=== PATIENT | male | born 1940 | race Caucasian/White ===

== ENCOUNTER → 2016-03-22 | Outpatient (CLI) | payer OTHER ==
[~2016-03-22] MED LIST: ACET-2267 PO; ACET-2422 PO; ALEN70TA47 PO; ASCO-262 PO; ASPI-983 PO; ATOR80TA76 PO; BUDE10.2 IH; CALC-676 PO; CALC-901 PO; CARV6.252 PO; DIGO250T15 PO; DOCU-143 PO; DOXY100C42 PO; FA/M1TAB29 PO; FINA5TAB6 PO; FLUT16SP22 NS; FOLI1TAB24 PO; FURO40TA4 PO; GLUC-173 PO; GLUC1CAP37 PO; GUAI100L13 PO; GUAI118L69 PO; HYDR-3812 PO; HYDR200T46 PO; LEFL20TA18 PO; LORA10TA7 PO; METO-272 PO; MULT-301 PO; OMG1KC PO; PRD20T PO; PRED10TA22 PO; RT-ALBUINH IH; SPIR25TA PO; SULF500T7 PO; TACR1CAP8 PO; TAMS0.4C98 PO; TIOT4MIS2 IH; UBID1CAP53 PO; VITA1CAP PO; VITAMIN D3 PO; WARF-48 PO; WARF2.5T PO; WARF5TAB PO
--- OUTSIDE RECORDS SUMMARY | 2016-03-22 16:25 | XMS REPORT | Continuity of Care Document ---
Author Author [facility] Organization [facility] Address Unknown Phone Unavailable Care Team Providers Care Data Modeling Architect Name Role Phone DREA LAW DO PCP Insurance Providers Payer Name Policy Number Subscriber Name Relationship Veterans Choice [id number] Alessio Cordero Jr 18 Self / Same As Patient Advance Directives Directive Response Recorded Date/Time Advance Directives Yes 03/01/16 7:10am Health Care Power of Rn Plasma Center Yes 03/01/16 7:10am Organ Donor No 03/01/16 7:10am Resuscitation Status Full Code 03/01/16 7:10am Problems Active Problems Medical Problem Onset Date Status CKD (chronic kidney disease), stage III Unknown Acute Medications Current Home Medications Medication Dose Units Route Directions Days/Qty Instructions Start Date Acetaminophen 500 Mg 1,000 Mg Oral Daily TAKES 2 (500MG) TABLETS 03/01 Acetaminophen 500 Mg 1,000 Mg Oral Twice A Day as needed for Pain TAKES 2 (500MG) TABLETS 03/01/16 Albuterol Sulfate 6.7 Gm 2 Puff Inhalation Twice A Day 03/01/16 Albuterol Sulfate 6.7 Gm 2 Puff Inhalation Daily as needed for Shortness Of Breath 03/01/16 Alendronate Sodium 70 Mg 70 Mg Oral Every Monday03/01/16 Ascorbate Calcium 500 Mg 500 Mg Oral Daily 03/01/16 Aspirin 81 Mg 81 Mg Oral Bedtime 03/01/16 Atorvastatin Calcium 80 Mg 80 Mg Oral Bedtime 03/01/16 Budesonide/Formoterol Fumarate 10.2 Gm 2 Puff Inhalation Twice A Day 03/01/16 Calcium Carbonate/Vitamin D3 1 Each 1 Tab Oral Twice A Day 03/01/16 Carvedilol 6.25 Mg 6.25 Mg Oral Daily 03/01/16 Glucosa Whiting 2KCL/Chondroitin [place] 1 Each 2 Cap Oral Daily 03/01/16 Ubidecarenone/Vit E Acetate 1 Each 100 Mg Oral Daily 03/01/16 Docusate Sodium 100 Mg 100 Mg Oral Daily 03/01/16 Finasteride 5 Mg 5 Mg Oral Bedtime 03/01/16 [place] 3 Polyunsat Fatty Acids 1,000 Mg 3,000 Mg Oral Daily TAKES 3 (1, 000MG) CAPSULES 03/01/16 Fluticasone Propionate 16 Gm 2 Sprays Nasal Daily 03/01/16 Folic Acid 1 Mg 1 Mg Oral Daily 03/01/16 Furosemide 40 Mg 80 Mg Oral Daily TAKES 2 (40MG) TABLET 03/01/16 Guaifenesin 100 Mg/5 Ml 5 Ml Oral Daily as needed for Congestion Hydroxychloroquine Sulfate 200 Mg 200 Mg Oral Twice A Day 03/01/16 Leflunomide 20 Mg 20 Mg Oral Twice A Day 03/01/16 Loratadine 10 Mg 10 Mg Oral Daily 03/01/16 Multivitamin 1 Each 1 Tab Oral Daily 03/01/16 Sulfasalazine 500 Mg 1,000 Mg Oral Twice A Day TAKES 2 (500MG) TABLETS 03/01/16 Tacrolimus 1 Mg 1 Mg Oral Bedtime 03/01/16 Tamsulosin Hcl 0.4 Mg 0.4 Mg Oral Bedtime 03/01/16 Tiotropium [place] 4 Gm 2 Puff Inhalation Daily 03/01/16 Vitamin B Complex 1 Each 1 Cap Oral Daily 03/01/16 Warfarin Sodium 5 Mg 5 Mg Oral Bedtime 03/01/16 Spironolactone 25 Mg 25 Mg Oral Twice A Day 03/01/16 Social History Social History Problem Response Recorded Date/Time Recent Foreign Travel No 03/01/2016 7:24am Recent Infectious Disease Exposure No 03/01/2016 7:24am Smoking Status Former Smoker 03/01/2016 7:18am Query Response Start Date Stop Date Smoking Status Former Smoker Hospital Discharge Instructions Patient Instructions Physician Instructions Patient Instructions: F/u with Dr Bach on 03/04/16 Follow Up/Plan F/u with Dr Bach on 03/04/16 CARDIAC CATH DISCHARGE INSTRUCTIONS *Hold Metformin for 48 hours post heart cath. ACTIVITY * Go Home directly and rest. * Limit activity of the leg (or wrist if it was used) for 7 days including aerobics, swimming, jogging, bicycling, etc. * Restrict stair-climbing for 7 days if possible, if not, climb up with your non-cath leg, then bring together on the same step. * Avoid lifting, pushing, pulling or excessive movement of the affected extremity for 7 days. * Customary sexual activity may be resumed after 2 days-use caution not to use a position that strains or causes pain to the affected extremity. * No driving for 24 hours. * NO SMOKING. * Avoid straining for bowel movements for 7 days. * Gentle walking on level ground is allowed. * Returning to work will depend on the type of procedure and the results. Your doctor will discuss this with you. CALL YOUR DOCTOR FOR ANY OF THE FOLLOWING: *If bleeding from the puncture site occurs- Apply gentle pressure to site with clean cloth and call your doctor or EMS. * If a knot or lump forms under the skin, increases in size, or causes pain. * If bruising appears to be worsening or moving further down your leg instead of disappearing. * Temperature above 101 F. CARE OF YOUR GROIN INCISION; * Bruising or purple discoloration of the skin near the puncture site is common. * You may shower only, no bathtub bathing for 5 days. Be careful to avoid slipping as your leg may feel stiff. * If a closure device was used on your femoral artery, please see the attached guide regarding care of the device and your leg. * REMOVE the dressing from your groin the next day after your procedure in the shower. CARE OF YOUR WRIST INCISION; * Bruising or purple discoloration of the skin near the puncture site is common. * You may shower. * DO NOT submerge wrist. * Remove dressing in 24 hours. Care Plan Patient Instructions:: F/u with Dr Bach on 03/04/16 Plan of Care Discharge Date 03/01/16 6:00pm Instructions/Education Provided CARDIAC CATH DISCHARGE INSTRUC Prescriptions See Medication Section Follow-up Orders BMP-Basic Metabolic Panel Functional Status Query Response Date Recorded Patient Orientation Person Place Time March 01, 2016 6:14pm Allergies, Adverse Reactions, Alerts Allergen Type Severity Reaction Status Last Updated Penicillins ([id number]) Allergy Unknown Active 03/01/16 methotrexate ([id number]) Allergy Unknown Active 03/01/16 Cephalexin Allergy Unknown Active 03/01/16 ciprofloxacin ([id number]) Allergy Unknown Active 03/01/16 Immunizations No immunization records. Vital Signs Acute Vital Signs Vital Response Date/Time Temperature (Fahrenheit) 96.4 degrees F (97.6 - 99.5) 03/01/2016 12:05pm Temperature (Calculated Celsius) 35.34168 degrees C (36.4 - 37.5) 03/01/2016 12:05pm Temperature Source Tympanic 03/01/2016 12:05pm Pulse Rate (adult) 90 bpm (60 - 90) 03/01/2016 4:00pm Respiratory Rate 13 bpm (12 - 24) 03/01/2016 4:00pm O2 Sat by Pulse Oximetry 93 % (88 - 100) 03/01/2016 4:00pm Blood Pressure 94/65 mm Hg 03/01/2016 4:00pm Blood Pressure Mean 75 mm Hg 03/01/2016 4:00pm Pain Numeric Pain Scale 0-No Pain 03/01/2016 5:00pm Height (Feet) 5 feet 03/01/2016 7:24am Height (Inches) 3.00 inches 03/01/2016 7:24am Height (Calculated Centimeters) 160.881404 cm 03/01/2016 7:24am Weight (Pounds) 199 pounds 03/01/2016 7:24am Weight (Ounces) 0.0 oz 03/01/2016 7:24am Weight (Calculated Grams) 69082.88 gm 03/01/2016 7:24am Weight (Calculated Kilograms) 90.535668 kilograms 03/01/2016 7:24am Calculated BMI 35.3 03/01/2016 7:24am Capillary Refill Capillary Refill Less Than 3 Seconds 03/01/2016 5:00pm Capillary Refill Capillary Refill Less Than 3 Seconds 03/01/2016 5:00pm Results Pending Laboratory Results Test Name Collection Date/Time Procedures Procedure Status Date Provider(s) 48 hour Holter monitoring Completed 02/18/16 MARCK BACH MD FACP FAC CCDS 48 hour Holter monitoring Completed 02/18/16 MARCK BACH MD, FACP, FACC CCDS Color Doppler echocardiography Active 02/18/16 MARCK BACH MD, FACP, FACC CCDS Tracing only of electrocardiogram Completed 03/01/16 MARCK BACH MD, FACP, FACC CCDS Encounters Encounter Location Arrival/Admit Date Discharge/Depart Date Attending Provider Departed [facility] 03/01/16 6:49am 6:00pm MARCK BACH FACP, MD [facility] Registered Clinic [facility] 02/24/16 2:20pm [facility] 02/18/16 12:42pm MARCK BACH FACP, MD [facility] Registered Clinic [facility] 02/16/16 7:15am [facility] Recent Diagnosis CKD (chronic kidney disease), stage III
--- NOTE | 2016-03-22 17:04 | Diagnostic Imaging Report ---
INDICATION: Cardiac disease, shortness of breath. COMPARISON: No priors. FINDINGS: There are right posterolateral fracture deformities of uncertain acuity; correlate with any recent trauma. There is flattening of the diaphragms and features of COPD. There is borderline cardiomegaly, but no convincing evidence for overdistention of the vascularity. No effusion or pneumothorax. IMPRESSION: Acuity-indeterminate right rib fractures. Upper limits heart size with air trapping and COPD. No acute pleural disease or overt uncompensated failure pattern. Dictated by: Dictated on workstation # [id number]
== END ==
LOC: RAD 16:21
PROVIDERS: ATTEND Internal Medicine Critical Care Medicine
DX: R06.02 Shortness of breath (principal); E66.09 Other obesity due to excess calories; I50.23 Acute on chronic systolic (congestive) heart failure
CPT/HCPCS: 71020

== ENCOUNTER 2016-03-31 12:45 | Inpatient (IN) | payer MEDICARE, OTHER ==
[~2016-03-31] VITALS: Ht 160 cm; Wt 79.9 kg
[~2016-03-31 12:45] MED LIST changes: -ACET-2422 PO; -CALC-901 PO; -DIGO250T15 PO; -DOXY100C42 PO; -FA/M1TAB29 PO; -GLUC-173 PO; -GUAI118L69 PO; -HYDR-3812 PO; -METO-272 PO; -PRD20T PO; -PRED10TA22 PO; -VITAMIN D3 PO; -WARF2.5T PO; -WARF5TAB PO
[2016-03-31] MEDS ORDERED: GENTAMICIN 100 MG/50 ML IV SCH (12:52)
[2016-03-31] MEDS ORDERED: ALPRAZolam 0.25 MG (XANAX) TAB PO PRN (13:00)
[2016-03-31] MEDS ORDERED: ACETAMINOPHEN 500 MG TAB (TYLENOL) PO PRN (13:00)
[2016-03-31 17:20] VITALS: BP 110/72
--- OUTSIDE RECORDS SUMMARY | 2016-03-31 17:48 | XMS REPORT | Continuity of Care Document ---
Author Author [facility] Organization [facility] Address Unknown Phone Unavailable Care Team Providers Care Integrity Analyst Name Role Phone DREA LAW DO PCP Insurance Providers Payer Name Policy Number Subscriber Name Relationship Veterans Choice [id number] Alessio Cordero Jr 18 Self / Same As Patient Advance Directives Directive Response Recorded Date/Time Advance Directives Yes 03/01/16 7:10am Health Care Power of Target Aircraft Technician Yes 03/01/16 7:10am Organ Donor No 03/01/16 [...] 5 Mg 5 Mg Oral Bedtime 03/01/16 [place] 3 Polyunsat Fatty Acids 1,000 Mg 3,000 [...] Mg 0.4 Mg Oral Bedtime 03/01/16 Tiotropium [place] 4 Gm 2 Puff Inhalation Daily 03/01/16 [...] Type Severity Reaction Status Last Updated Penicillins ([id number]) Allergy Unknown Active 03/01/16 methotrexate ([id number]) Allergy Unknown Active 03/01/16 Cephalexin Allergy Unknown Active 03/01/16 ciprofloxacin ([id number]) Allergy Unknown Active 03/01/16 Immunizations No immunization records. Vital Signs Acute Vital Signs Vital Response Date/Time Temperature (Fahrenheit) 96.4 degrees F (97.6 - 99.5) 03/01/2016 12:05pm Temperature (Calculated Celsius) 35.95158 degrees C (36.4 - 37.5) 03/01/2016 12:05pm [...] 3.00 inches 03/01/2016 7:24am Height (Calculated Centimeters) 160.459998 cm 03/01/2016 7:24am Weight (Pounds) 199 pounds 03/01/2016 7:24am Weight (Ounces) 0.0 oz 03/01/2016 7:24am Weight (Calculated Grams) 94459.88 gm 03/01/2016 7:24am Weight (Calculated Kilograms) 90.806257 kilograms 03/01/2016 7:24am Calculated BMI 35.3 03/01/2016 [...] Attending Provider Departed Surgical Day Care [facility] 03/01/16 6:49am 6:00pm MARCK BACH FACP, MD [facility] Registered Clinic [facility] 02/24/16 2:20pm [facility] 02/18/16 12:42pm MARCK BACH FACP, MD [facility] Registered Clinic [facility] 02/16/16 7:15am [facility] Recent Diagnosis CKD (chronic kidney disease), stage III
--- NOTE | 2016-03-31 18:01 | Diagnostic Imaging Report ---
INDICATION: Shortness of breath and cough. PA and lateral chest. FINDINGS: Heart size and pulmonary vascularity are normal. Lungs are clear. There are no effusions or pneumothoraces. IMPRESSION: No acute abnormalities in the chest. Dictated by: Dictated on workstation # [id number]
[2016-03-31] MEDS: AZITHROMYCIN IV ADD-VANTAGE 500 MG in SODIUM CHLORIDE (ADD-VANTAGE) 250 ML IV SCH (18:18)
[2016-03-31 18:21] LABS: ABG BASE EXCESS -0.3 MMOL/L (-2.5-2.5); ABG HCO3 24 MMOL/L (23-27); ABG OXYGEN SATURATION 97 % (94-100); ABG PCO2 40 MMHG (35-45); ABG PO2 90 MMHG (79-93); ABG TCO2 25.2 MMOL/L (21.0-31.0)
[2016-03-31 18:23] LABS: ALLENS TEST YES-POS; PATIENT TEMP 100.3
[2016-03-31] MEDS: methylPREDNISolone 40 MG/ML (Solu-MEDROL) VIAL IV SCH (18:26)
[2016-03-31 18:43] LABS: BASOPHILS % (AUTO) 1 % (0-10); EOSINOPHILS # (AUTO) 0.2 10^3/uL (0.0-0.3); EOSINOPHILS % (AUTO) 2 % (0-10); LYMPHOCYTES # (AUTO) 1.2 X 10^3 (1.0-4.0); LYMPHOCYTES % (AUTO) 14 % (12-44); MEAN CORPUSCULAR HEMOGLOBIN 33 PG (25-34); MEAN CORPUSCULAR HGB CONC 33 G/DL (32-36); MEAN CORPUSCULAR VOLUME 100 FL (80-99); MEAN PLATELET VOLUME 11.5 FL (7.4-10.4); MONOCYTES # (AUTO) 1.4 X 10^3 (0.0-1.0); MONOCYTES % (AUTO) 16 % (0-12); NEUTROPHILS # (AUTO) 5.9 X 10^3 (1.8-7.8); NEUTROPHILS % (AUTO) 68 % (42-75); PLATELET COUNT 133 10^3/uL (130-400); RED CELL DISTRIBUTION WIDTH 13.8 % (10.0-14.5); WHITE BLOOD COUNT 8.7 10^3/uL (4.3-11.0)
[2016-03-31] MEDS: guaiFENesin/CODEINE (ROBITUSSIN AC) 10ML UDC PO PRN (19:00)
[2016-03-31 19:03] LABS: ANION GAP 13 MMOL/L (5-14); BLOOD UREA NITROGEN 19 MG/DL (7-18); BUN/CREATININE RATIO 17; CALCIUM 9.1 MG/DL (8.5-10.1); CARBON DIOXIDE 22 MMOL/L (21-32); CHLORIDE 97 MMOL/L (98-107); CREATININE SERUM 1.13 MG/DL (0.60-1.30); GFR ESTIMATED > 60; GLUCOSE 98 MG/DL (70-105); POTASSIUM 3.9 MMOL/L (3.6-5.0); SODIUM 132 MMOL/L (135-145)
[2016-03-31 19:20] VITALS: BP 119/78
[2016-03-31] MEDS: RT-ALBUTEROL/IPRATROPIUM 3 ML (DUONEB) VIAL INH SCH ×2 (19:20→21:04)
[2016-03-31] MEDS ORDERED: CEFEPIME INJECTION 2,000 MG in NORMAL SALINE (BAXTER MINI) 50 ML IV SCH (21:00)
[2016-03-31] MEDS: RT-BUDESONIDE NEBS 0.5 MG/2ML (PULMICORT) AMP INH SCH (21:04)
[2016-03-31] MEDS: NS IV SCH ×2 (21:10→21:51)
[2016-03-31] MEDS: GENTAMICIN IV SCH ×2 (21:10→21:51)
[2016-03-31] MEDS: POLYETHYLENE GLYCOL 17 GM (MIRALAX) PACK PO SCH ×2 (21:11→21:12)
[2016-03-31] MEDS ORDERED: RT-ALBUTEROL/IPRATROPIUM 3 ML (DUONEB) VIAL INH PRN (23:15)
[2016-04-01 00:03] VITALS: BP 120/86
[2016-04-01] MEDS: methylPREDNISolone 40 MG/ML (Solu-MEDROL) VIAL IV SCH ×5 (00:03→23:58)
[2016-04-01] MEDS: RT-ALBUTEROL/IPRATROPIUM 3 ML (DUONEB) VIAL INH SCH ×6 (01:49→22:50)
[2016-04-01 04:52] VITALS: BP 117/71
[2016-04-01] MEDS: guaiFENesin/CODEINE (ROBITUSSIN AC) 10ML UDC PO PRN ×3 (05:52→20:33)
[2016-04-01] MEDS ORDERED: TROUGH ORDER-PHARMACY XX NR (07:00)
[2016-04-01] MEDS: RT-BUDESONIDE NEBS 0.5 MG/2ML (PULMICORT) AMP INH SCH ×2 (07:03→20:06)
[2016-04-01 08:00] VITALS: BP 119/74
--- NOTE | 2016-04-01 08:32 | Pulmonary Consultation ---
History of Present Illness History of Present Illness Date of Consultation 04/01/16 08:31 Date of Admission History of Present Illness 75yo with hx of severe COPD transferred from [facility] to progressive SOB and pneumonia that is slow to respond. Pt is using Robitussin with codeine for cough however he still c/o strong cough. He is on IV steroids and nebulizer. I am consulted for pulmonary management. Allergies and Home Medications Allergies Coded Allergies: Penicillins (Verified Allergy, Unknown, 03/01/16) cephalexin (Verified Allergy, Unknown, 03/01/16) ciprofloxacin (Verified Allergy, Unknown, 03/01/16) methotrexate (Verified Allergy, Unknown, 03/01/16) Home Medications Acetaminophen 650 Mg Tablet.er 1,300 MG PO BID PRN PRN PAIN (Reported) TAKES 2 (650 MG) TABLETS Albuterol Sulfate 6.7 Gm Hfa.aer.ad 2 PUFF IH BID (Reported) Alendronate Sodium 70 Mg Tablet 70 MG PO [place] (Reported) LAST FILLED 11/05/15 #12 Ascorbate Calcium 500 Mg Tablet 500 MG PO DAILY (Reported) Aspirin 81 Mg Tablet.dr 81 MG PO HS (Reported) Atorvastatin Calcium 80 Mg Tablet 80 MG PO HS (Reported) LAST FILLED 11/05/15 #90 Budesonide/Formoterol Fumarate 10.2 Gm Hfa.aer.ad 2 PUFF IH BID (Reported) Calcium Carbonate/Vitamin D3 1 Each Tablet 1 TAB PO BID (Reported) Carvedilol 6.25 Mg Tablet 3.125 MG PO BID (Reported) TAKES 1/2 OF A (6.25 MG) TABLET Finasteride 5 Mg Tablet 5 MG PO HS (Reported) Folic Acid 1 Mg Tablet 1 MG PO DAILY (Reported) Furosemide 40 Mg Tablet 80 MG PO DAILY (Reported) TAKES 2 (40MG) TABLET Glucosamine/MSM/Chondroitin A 1 Each Tablet 2 TAB PO DAILY (Reported) Guaifenesin/Dextromethorphan 118 Ml Liquid 5 ML PO DAILY PRN PRN CONGESTION ( Reported) Leflunomide 20 Mg Tablet 20 MG PO BID (Reported) LAST FILLED 01/14/16 #110 Loratadine 10 Mg Tablet 10 MG PO DAILY (Reported) Multivit-Min/FA/Lycopene/Lut 1 Each Tablet 1 TAB PO DAILY (Reported) [place] 3 Polyunsat Fatty Acids 1,000 Mg Cap 1,000 MG PO DAILY (Reported) Prednisone 20 Mg Tab 20 MG PO DAILY (Reported) FILLED 03/30/16 #5 FOR A 5 DAY THERAPY Prednisone 10 Mg Tab.ds.pk #42 10 MG PO DAILY Take 6 tabs(60mg)daily,decrease by 1 tab(10mg)every other day. Prescribed by: BUCK ARMENDARIZ on 04/05/16 0926 Spironolactone 25 Mg Tablet 25 MG PO BID (Reported) Sulfasalazine 500 Mg Tablet 1,000 MG PO BID (Reported) LAST FILLED 11/05/15 #360 / TAKES 2 (500MG) TABLETS Tacrolimus 1 Mg Capsule 1 MG PO HS (Reported) Tamsulosin HCl 0.4 Mg Cap 0.4 MG PO HS (Reported) Tiotropium [place] 4 Gm Mist.inhal 2 PUFF IH DAILY (Reported) Ubidecarenone/Vit E Acetate 1 Each Capsule 100 MG PO DAILY (Reported) Vitamin B Complex 1 Each Capsule 1 CAP PO DAILY (Reported) Past Ebptpev-Vitrms-Txgkta Hx Patient Social History Alcohol Use: Denies Use Recreational Drug Use: No Smoking Status: Former Smoker Type Used: Cigarettes Recent Foreign Travel: No Contact w/Someone Who Travel: No Recent Infectious Disease Expo: No Recent Hopitalizations: Yes Physical Abuse Screen: No Sexual Abuse: No Immunizations Up To Date Date of Pneumonia Vaccine: Mar 01, 2015 Date of Influenza Vaccine: Dec 01, 2015 Seasonal Allergies Seasonal Allergies: No Surgeries HX Surgeries: Yes Respiratory Hx Respiratory Disorders: Yes Respiratory Disorders: Asthma, COPD Cardiovascular Hx Cardiac Disorders: Yes Genitourinary Hx Genitourinary Disorders: No Gastrointestinal Hx Gastrointestinal Disorders: No Gastrointestinal Disorders: Gastroesophageal Reflux, Chronic Constipation HEENT HEENT Disorders: Cataract Loss of Vision: Bilateral Hearing Impairment: Bilateral Hearing Aide Cancer Cancer: Kidney Psychosocial Behavioral Health Disorders: Depression Blood Transfusions Adverse Reaction to a Blood Tr: No Family Medical History Family Medial History: Patient reports no known family medical history. Review of Systems Constitutional: : Fever: Weakness Eyes: No: Conjunctivae inflammation, Eyelid inflammation, Other, Pain, Redness , Vision change ENT: : Ear discharge: Ear pain: Mouth pain: Mouth swelling: Nose congestion: Nose discharge: Nose pain: Other: Throat pain: Throat swelling Respiratory: : Cough: Dry: SOB with excertion: Shortness of breath Cardiovascular: : Paroxysmal Noc. DyspneaNo: Chest Pain, Edema, Lt Headedness, Orthopnea, Other, Palpitations Gastrointestinal: No: Abdominal Pain, Constipation, Diarrhea, Hematochezia, Melena, Nausea, Other, Vomiting Neurological: : Weakness Exam Exam Vital Signs Date Time Temp Pulse Resp B/P Pulse Ox O2 Delivery O2 Flow Rate FiO2 04/01/16 08:00 96.0 86 18 119/74 97 Nasal Cannula 3.00 04/01/16 07:05 96 Nasal Cannula 3.00 04/01/16 04:52 96.9 72 20 117/71 95 Nasal Cannula 3.00 04/01/16 03:52 Nasal Cannula 3.00 04/01/16 01:52 96 Nasal Cannula 3.00 04/01/16 01:00 99 04/01/16 00:03 96.8 81 24 120/86 98 Nasal Cannula 3.00 03/31/16 21:06 90 03/31/16 21:06 90 Nasal Cannula 3.00 03/31/16 21:00 Nasal Cannula 3.00 03/31/16 19:20 97.8 102 24 119/78 95 Nasal Cannula 3.00 03/31/16 19:00 129 03/31/16 18:46 99.7 03/31/16 18:41 Nasal Cannula 3.00 03/31/16 17:20 100.3 114 28 110/72 97 Nasal Cannula 3.00 I & O 04/01/16 07:00 Intake Total 1060 ml Output Total 900 ml Balance 160 ml General Appearance: No Apparent Distress WD/WN Neck: Full Range of Motion Normal Inspection Respiratory: No Accessory Muscle Use No Respiratory Distress Decreased Breath Sounds Cardiovascular: Regular Rate, Rhythm Gastrointestinal: normal bowel sounds non tender Neurologic/Psychiatric: Alert Skin: Normal Color Warm/Dry Results Lab Laboratory Tests 03/31/16 18:11 Assessment/Plan Assessment/Plan Pneumonia - slow to respond -elam cultures pending -Continue current Abx -SVNS Clinical Quality Measures DVT/VTE Risk/Contraindication: Risk Factor Score Per Nursin RFS Level Per Nursing on Admit: 4+=Very High NORIS JANE DO Apr 01, 2016 08:32
[2016-04-01] MEDS: HYDROcodone/APAP 5 MG/325 MG (LORTAB) TAB PO PRN (08:34)
[2016-04-01] MEDS: POLYETHYLENE GLYCOL 17 GM (MIRALAX) PACK PO SCH ×2 (08:34→20:34)
[2016-04-01] MEDS ORDERED: CATHETER FLUSH 10 ML SYR IV PRN (09:45)
[2016-04-01] MEDS ORDERED: CALC-901 PO (10:39)
[2016-04-01] MEDS ORDERED: PRD20T PO (10:39)
[2016-04-01] MEDS ORDERED: FA/M1TAB29 PO (10:39)
[2016-04-01] MEDS ORDERED: GLUC-173 PO (10:39)
[2016-04-01] MEDS ORDERED: ACET-2422 PO (10:39)
[2016-04-01] MEDS ORDERED: DOXY100C42 PO (10:39)
[2016-04-01] MEDS ORDERED: WARF-48 PO (10:39)
[2016-04-01] MEDS ORDERED: GUAI118L69 PO (10:39)
[2016-04-01] MEDS: CATHETER FLUSH 10 ML SYR IV SCH ×2 (11:56→20:43)
[2016-04-01] MEDS: BENZONATATE 100 MG (TESSALON) CAPSULE PO SCH ×2 (11:57→20:33)
--- NOTE | 2016-04-01 11:57 | History & Physical-Hospitalist ---
HPI History of Present Illness: HPI/Chief Complaint CC: Severe dyspnea w/AECOPD HPI: This is a 75-year-old white male with a past medical history of severe COPD just established with Dr. Barba who presented to [facility] ER and was placed in observation due to shortness of breath. I have consulted both cardiology and Dr. Hoskins who is seen in his clinic this past week. Patient reports the cough is continuous even Robitussin with codeine is helping slightly but denies any significant pain issues. He does report that he feels better since arrival since receiving IV steroids and nebulizer treatments. He does not wear oxygen at night or at home at all. At this current time Dr. Hoskins is seen him and assessed him to have exacerbation of COPD and will monitor closely. Source: patient Exam Limitations: clinical condition (coughing continously) Date Seen 04/01/16 Attending Physician Alva Holbrook DO PCP Wayne Barba DO Referring Physician Date of Admission Mar 31, 2016 at 17:35 Home Medications & Allergies Home Medications Reviewed patient Home Medication Reconciliation Form Allergies Coded Allergies: Penicillins (Verified Allergy, Unknown, 03/01/16) cephalexin (Verified Allergy, Unknown, 03/01/16) ciprofloxacin (Verified Allergy, Unknown, 03/01/16) methotrexate (Verified Allergy, Unknown, 03/01/16) Past Sjcuvpv-Nulpnu-Ioyfku Hx Patient Social History Marrital Status: single 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) Alcohol Use: Denies Use Recreational Drug Use: No Smoking Status: Former Smoker Type Used: Cigarettes Physical Abuse Screen: No Sexual Abuse: No Recent Foreign Travel: No Contact w/other who traveled: No Recent Hopitalizations: Yes Recent Infectious Disease Expo: No Immunizations Up To Date Date of Pneumonia Vaccine: Mar 01, 2015 Date of Influenza Vaccine: Dec 01, 2015 Seasonal Allergies Seasonal Allergies: No Surgeries HX Surgeries: Yes Respiratory Hx Respiratory Disorders: Yes Respiratory Disorders: COPD, Pneumonia Cardiovascular Hx Cardiovascular Disorders: Yes Cardiac Disorders: High Cholesterol, Hypertension, Valvular Heart Disease Neurological Hx Neurological Disorders: No Genitourinary Hx Genitourinary Disorders: No Gastrointestinal Hx Gastrointestinal Disorders: No Gastrointestinal Disorders: Gastroesophageal Reflux, Chronic Constipation Musculoskeletal Hx Musculoskeletal Disorders: Yes Musculoskeletal Disorders: Arthritis Endocrine Hx Endocrine Disorders: No HEENT HEENT Disorders: Cataract Loss of Vision: Bilateral Hearing Impairment: Bilateral Hearing Aide Cancer Hx Cancer: No Cancer: Kidney Psychosocial Hx Psychiatric Problems: No Behavioral Health Disorders: Depression Blood Transfusions Adverse Reaction to a Blood Tr: No Family Medical History Family Hx: Patient reports no known family medical history. Review of Systems Constitutional: see HPI dizziness malaise weakness EENTM: no symptoms reported Respiratory: cough dyspnea on exertion short of breath wheezing Cardiovascular: no symptoms reported Gastrointestinal: no symptoms reported Genitourinary: no symptoms reported Musculoskeletal: no symptoms reported Skin: no symptoms reported Psychiatric/Neurological: No Symptoms Reported All Other Systems Reviewed Negative Unless Noted: Yes Physical Exam Physical Exam Vital Signs Vital Sign - Last 12Hours 03/31/16 17:20 Temp 100.3 Pulse 114 Resp 28 B/P 110/72 Pulse Ox 97 O2 Delivery Nasal Cannula O2 Flow Rate 3.00 Capillary Refill : Less Than 3 Seconds General Appearance: WD/WN Chronically ill Mild Distress (during coughing spells) Obese Eyes: Bilateral Eye Normal Inspection, Bilateral Eye PERRL HEENT: PERRL/EOMI Normal ENT Inspection Pharynx Normal Neck: Full Range of Motion Normal Inspection Non Tender Supple Carotid Bruit Respiratory: Chest Non Tender No Respiratory Distress Crackles Decreased Breath Sounds Rales Wheezing Cardiovascular: Regular Rate, Rhythm No Edema No Gallop No JVD No Murmur Normal Peripheral Pulses Gastrointestinal: Normal Bowel Sounds No Organomegaly No Pulsatile Mass Non Tender Soft Back: Normal Inspection No CVA Tenderness No Vertebral Tenderness Extremity: Normal Capillary Refill Normal Inspection Normal Range of Motion Non Tender No Calf Tenderness No Pedal Edema Neurologic/Psychiatric: Alert Oriented x3 No Motor/Sensory Deficits Normal Mood/Affect Skin: Normal Color Warm/Dry Lymphatic: No Adenopathy Results Results/Procedures Lab Laboratory Tests 03/31/16 18:11 Assessment/Plan Admission Diagnosis Assessment: Acute exacerbation of COPD Severe aortic stenosis Immunosuppressive use Hyperlipidemia hyponatremia AF Assessment and Plan IV steroids Empiric antibiotic for bronchitis Monitor INR Reconcile all home meds and held most of immunosuppressive Monitor closely Palliative care May need BiPAP Clinical Quality Measures DVT/VTE Risk/Contraindication: Risk Factor Score Per Nursin RFS Level Per Nursing on Admit: 4+=Very High ALVA HOLBROOK DO Apr 01, 2016 11:57
[2016-04-01 12:00] VITALS: BP 103/70
[2016-04-01] MEDS ORDERED: NON-FORMULARY MEDICATION 1 EA EA (Acetaminophen (Acetaminophen ER) 1,300 MG) PO PRN (12:00)
[2016-04-01 12:34] LABS: INR 1.6 (0.8-1.4); PROTHROMBIN TIME PATIENT 19.2 SEC (12.2-14.7)
[2016-04-01] MEDS: warFARin 5 MG (COUMADIN) TAB PO SCH (13:15)
[2016-04-01 16:20] VITALS: BP 104/67
[2016-04-01] MEDS: ALFUZOSIN HCL 10 MG TAB (UROXATRAL) PO SCH (17:33)
[2016-04-01] MEDS: AZITHROMYCIN IV ADD-VANTAGE 500 MG in SODIUM CHLORIDE (ADD-VANTAGE) 250 ML IV SCH (17:34)
[2016-04-01] MEDS: RT-ADVAIR HFA 115/21 MCG PER PUFF IH SCH (20:06)
[2016-04-01 20:28] VITALS: BP 110/68
[2016-04-01] MEDS: CALCIUM CARB + VIT D 600 MG (CALCARB + D) TAB PO SCH (20:30)
[2016-04-01] MEDS: CARVEDILOL 6.25 MG (COREG) TAB PO SCH (20:30)
[2016-04-01] MEDS: sulfaSALAzine 500 MG (AZULFIDINE) TAB PO SCH (20:31)
[2016-04-01] MEDS: ATORVASTATIN 80 MG (LIPITOR) TABLET PO SCH (20:31)
[2016-04-01] MEDS: ASPIRIN E.C. 81 MG (ECOTRIN) TAB PO SCH (20:32)
[2016-04-01] MEDS: SPIRONOLACTONE 25 MG (ALDACTONE) TAB PO SCH (20:32)
[2016-04-01] MEDS: NS IV SCH (20:42)
[2016-04-01] MEDS: GENTAMICIN IV SCH (20:42)
[2016-04-02 00:02] VITALS: BP 107/77
[2016-04-02] MEDS: RT-ALBUTEROL/IPRATROPIUM 3 ML (DUONEB) VIAL INH SCH ×6 (02:42→22:27)
[2016-04-02 04:00] VITALS: BP 104/59
[2016-04-02 05:26] LABS: BASOPHILS % (AUTO) 0 % (0-10); EOSINOPHILS % (AUTO) 0 % (0-10); LYMPHOCYTES # (AUTO) 0.7 X 10^3 (1.0-4.0); LYMPHOCYTES % (AUTO) 8 % (12-44); MEAN CORPUSCULAR HEMOGLOBIN 32 PG (25-34); MEAN CORPUSCULAR HGB CONC 32 G/DL (32-36); MEAN CORPUSCULAR VOLUME 99 FL (80-99); MEAN PLATELET VOLUME 11.4 FL (7.4-10.4); MONOCYTES # (AUTO) 0.6 X 10^3 (0.0-1.0); MONOCYTES % (AUTO) 7 % (0-12); NEUTROPHILS % (AUTO) 85 % (42-75); PLATELET COUNT 121 10^3/uL (130-400); RED BLOOD COUNT 3.61 10^6/uL (4.35-5.85); RED CELL DISTRIBUTION WIDTH 13.4 % (10.0-14.5); WHITE BLOOD COUNT 9.4 10^3/uL (4.3-11.0)
[2016-04-02 05:33] LABS: INR 1.5 (0.8-1.4); PROTHROMBIN TIME PATIENT 18.2 SEC (12.2-14.7)
[2016-04-02 05:44] LABS: ALANINE AMINOTRANSFERASE 29 U/L (0-55); ALBUMIN 3.8 G/DL (3.2-4.5); ANION GAP 11 MMOL/L (5-14); ASPARTATE AMINO TRANSFERASE 53 U/L (5-34); BILIRUBIN,TOTAL 0.5 MG/DL (0.1-1.0); BLOOD UREA NITROGEN 26 MG/DL (7-18); BUN/CREATININE RATIO 27; CALCIUM 8.8 MG/DL (8.5-10.1); CARBON DIOXIDE 23 MMOL/L (21-32); CHLORIDE 100 MMOL/L (98-107); CREATININE SERUM 0.96 MG/DL (0.60-1.30); GFR ESTIMATED > 60; GLUCOSE 152 MG/DL (70-105); POTASSIUM 4.9 MMOL/L (3.6-5.0); SODIUM 134 MMOL/L (135-145); TOTAL PROTEIN 6.2 G/DL (6.4-8.2)
[2016-04-02] MEDS: methylPREDNISolone 40 MG/ML (Solu-MEDROL) VIAL IV SCH ×4 (06:25→23:05)
[2016-04-02] MEDS: CATHETER FLUSH 10 ML SYR IV SCH ×3 (06:25→20:56)
[2016-04-02] MEDS: guaiFENesin/CODEINE (ROBITUSSIN AC) 10ML UDC PO PRN ×3 (06:25→17:18)
[2016-04-02] MEDS: CALCIUM CARB + VIT D 600 MG (CALCARB + D) TAB PO SCH ×2 (06:26→17:17)
[2016-04-02 07:50] VITALS: BP 114/58
[2016-04-02] MEDS: sulfaSALAzine 500 MG (AZULFIDINE) TAB PO SCH ×2 (08:47→20:55)
[2016-04-02] MEDS: SPIRONOLACTONE 25 MG (ALDACTONE) TAB PO SCH ×2 (08:47→20:55)
[2016-04-02] MEDS: FOLIC ACID 1 MG TAB PO SCH (08:48)
[2016-04-02] MEDS: BENZONATATE 100 MG (TESSALON) CAPSULE PO SCH ×3 (08:48→20:55)
[2016-04-02] MEDS: LORATADINE (CLARITIN) 10 MG TAB PO SCH (08:48)
[2016-04-02] MEDS: CARVEDILOL 6.25 MG (COREG) TAB PO SCH ×2 (08:48→20:54)
[2016-04-02] MEDS: ASCORBIC ACID (VIT C) 500 MG TABLET PO SCH (08:48)
[2016-04-02] MEDS: FUROSEMIDE 40 MG (LASIX) TAB PO SCH (08:49)
[2016-04-02] MEDS: POLYETHYLENE GLYCOL 17 GM (MIRALAX) PACK PO SCH ×2 (08:49→20:56)
[2016-04-02] MEDS: RT-ADVAIR HFA 115/21 MCG PER PUFF IH SCH ×2 (09:14→18:52)
[2016-04-02] MEDS: RT-BUDESONIDE NEBS 0.5 MG/2ML (PULMICORT) AMP INH SCH ×2 (09:14→18:52)
[2016-04-02] MEDS: UMECLIDINIUM BROMIDE (INCRUSE ELLIPTA) 7'S IH SCH (09:14)
--- NOTE | 2016-04-02 10:50 | History & Physical-Hospitalist ---
HPI History of Present Illness: HPI/Chief Complaint CC: Severe dyspnea w/AECOPD HPI: This is a 75-year-old white male with a past medical history of severe COPD just established with Dr. Barba who presented to [facility] ER and was placed in observation due to shortness of breath. I have consulted both cardiology and Dr. Hoskins who is seen in his clinic this past week. Patient reports the cough is continuous even Robitussin with codeine is helping slightly but denies any significant pain issues. He does report that he feels better since arrival since receiving IV steroids and nebulizer treatments. He does not wear oxygen at night or at home at all. At this current time Dr. Hoskins is seen him and assessed him to have exacerbation of COPD and will monitor closely. 04/02/16 progress note: Patient reports she's feeling better with decreased cough and decreased shortness of breath. He still significantly fatigued. He denies chest pain and denies abdominal pain or nausea with improving appetite. 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) Alcohol Use: Denies Use Recreational Drug Use: No Smoking Status: Former Smoker Type Used: Cigarettes Physical Abuse Screen: No Sexual Abuse: No Recent Foreign Travel: No Contact w/other who traveled: No Recent Hopitalizations: Yes Recent Infectious Disease Expo: No Immunizations Up To Date Date of Pneumonia Vaccine: Mar 01, 2015 Date of Influenza Vaccine: Dec 01, 2015 Seasonal Allergies Seasonal Allergies: No Surgeries HX Surgeries: Yes Respiratory Hx Respiratory Disorders: Yes Respiratory Disorders: COPD, Pneumonia Cardiovascular Hx Cardiovascular Disorders: Yes Cardiac Disorders: High Cholesterol, Hypertension, Valvular Heart Disease Neurological Hx Neurological Disorders: No Genitourinary Hx Genitourinary Disorders: No Gastrointestinal Hx Gastrointestinal Disorders: No Gastrointestinal Disorders: Gastroesophageal Reflux, Chronic Constipation Musculoskeletal Hx Musculoskeletal Disorders: Yes Musculoskeletal Disorders: Arthritis Endocrine Hx Endocrine Disorders: No HEENT HEENT Disorders: Cataract Loss of Vision: Bilateral Hearing Impairment: Bilateral Hearing Aide Cancer Hx Cancer: No Cancer: Kidney Psychosocial Hx Psychiatric Problems: No Behavioral Health Disorders: Depression Blood Transfusions Adverse Reaction to a Blood Tr: No Family Medical History Family Hx: Patient reports no known family medical history. Review of Systems Constitutional: no symptoms reported Physical Exam Physical Exam Vital Signs Vital Sign - Last 12Hours 03/31/16 17:20 Temp 100.3 Pulse 114 Resp 28 B/P 110/72 Pulse Ox 97 O2 Delivery Nasal Cannula O2 Flow Rate 3.00 Capillary Refill : Less Than 3 Seconds General Appearance: No Apparent Distress Chronically ill Respiratory: Other (chest clear anteriorly there are some mild expiratory wheezing posteriorly with diminished breath sounds posteriorly) Cardiovascular: No Murmur Other (irregular rhythm) Gastrointestinal: Normal Bowel Sounds No Organomegaly No Pulsatile Mass Non Tender Soft Results Results/Procedures Lab Laboratory Tests 03/31/16 18:11 04/02/16 05:01 Assessment/Plan Admission Diagnosis Assessment: Acute exacerbation of COPD Severe aortic stenosis Immunosuppressive use Hyperlipidemia hyponatremia AF Assessment and Plan 1. Acute COPD exacerbation slowly improving. Apparently there was a history of pneumonia but chest x-ray from the reveals no infiltrates. We'll continue Dr. dilator therapy antibiotic therapy and anti-inflammatory therapy unchanged today. If improvement continues will start Solu-Medrol taper tomorrow. Clinical Quality Measures DVT/VTE Risk/Contraindication: Risk Factor Score Per Nursin RFS Level Per Nursing on Admit: 4+=Very High BARBIE GAR MD Apr 02, 2016 10:50
--- NOTE | 2016-04-02 12:03 | Consultation-Cardiology ---
HPI-Cardiology Cardiology Consultation: Date of Consultation 04/02/16 Date of Admission Attending Physician Alva Holbrook DO Admitting Physician Wayne Barba DO Consulting Physician Emy BARAHONA MD HPI: Chief Complaint: shortness of breath this is a 75-year-old gentleman who is a patient of Dr. Espinosa. He previously presented for evaluation of shortness of breath. Echocardiogram had shown severe aortic stenosis. Coronary angiography and left heart catheterization showed moderate to severe aortic stenosis, moderate to severe mitral regurgitation and moderate to severe stenosis in the RCA. Cardiac surgery consultation was recommended. However, since the patient is a ; care was trying to be coordinated with the [facility]. This time around patient presents with shortness of breath and has been diagnosed with COPD. The patient denies any significant chest pain, syncope, near-syncope, palpitations. Review of Systems-Cardiology Review of Systems Constitutional: No As described under HPI, No no symptoms reported, No chills, No fever, No lightheadedness, No malaise, No tiredness, No weight loss, No weight gain, No other Eyes: No As described under HPI, No no symptoms reported, No blindness, No blurred vision, No contact lenses, No drainage, No decreased acuity, No foreign body sensation, No glasses, No inflammation, No pain, No photophobia, No previous injury, No shadows, No tunnel vision, No other, No vision change Ears/Nose/Throat: No As described under HPI, No no symptoms reported, No chronic hearing loss, No epistaxis, No ear discharge, No ear pain, No loose teeth, No mouth pain, No mouth swelling, No nasal drainage, No nose pain, No recent hearing loss, No throat pain, No throat swelling, No ulcerations, No other Respiratory: cough shortness of breath Cardiovascular: No no symptoms reported, No As described under HPI, No chest pain, No edema, No irregular heart rate, No lightheadedness, No palpitations, No syncope, No other Gastrointestinal: No no symptoms reported, No As described under HPI, No abdomen distended, No abdominal pain, No blood streaked bowels, No constipation , No diarrhea, No difficulty swallowing, No nausea, No poor appetite, No poor fluid intake, No rectal bleeding, No vomiting, No other, No nausea/vomiting/ diarrhea, No stool coloration changes Genitourinary: No no symptoms reported, No As described under HPI, No burning, No dysuria, No discharge, No frequency, No flank pain, No hematuria, No incontinence, No pain, No urgency, No other, No urine frequency changes, No urine coloration changes Musculoskeletal: No no symptoms reported, No As describe under HPI, No back pain, No gout, No joint pain, No joint swelling, No muscle pain, No muscle stiffness, No neck pain, No other Psychiatric/Neurological: No As described under HPI, No anxiety, No depression , No emotional problems, No focal weakness, No headache, No no symptoms reported , No numbness, No other, No pre-existing deficit, No seizure, No syncope, No tingling, No tremors, No weakness Hematologic: No no symptoms reported, No As described under HPI, No anemia, No blood clots, No easy bleeding, No easy bruising, No swollen glands, No other, No bleeding abnormalities All Other Systems Reviewed Negative Unless Noted: Yes [facility]-Fws[facility]l-Bubyaz Hx Patient Social History Marrital Status: single 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 Family Medical History Family History: Patient reports no known family medical history. Allergies and Home Medications Allergies Coded Allergies: Penicillins (Verified Allergy, Unknown, 03/01/16) cephalexin (Verified Allergy, Unknown, 03/01/16) ciprofloxacin (Verified Allergy, Unknown, 03/01/16) methotrexate (Verified Allergy, Unknown, 03/01/16) Home Medications Acetaminophen 650 Mg Tablet.er 1,300 MG PO BID PRN PRN PAIN (Reported) TAKES 2 (650 MG) TABLETS Albuterol Sulfate 6.7 Gm Hfa.aer.ad 2 PUFF IH BID (Reported) Alendronate Sodium 70 Mg Tablet 70 MG PO [place] (Reported) LAST FILLED 11/05/15 #12 Ascorbate Calcium 500 Mg Tablet 500 MG PO DAILY (Reported) Aspirin 81 Mg Tablet.dr 81 MG PO HS (Reported) Atorvastatin Calcium 80 Mg Tablet 80 MG PO HS (Reported) LAST FILLED 11/05/15 #90 Budesonide/Formoterol Fumarate 10.2 Gm Hfa.aer.ad 2 PUFF IH BID (Reported) Calcium Carbonate/Vitamin D3 1 Each Tablet 1 TAB PO BID (Reported) Carvedilol 6.25 Mg Tablet 3.125 MG PO BID (Reported) TAKES 1/2 OF A (6.25 MG) TABLET Doxycycline Monohydrate 100 Mg Capsule 100 MG PO BID (Reported) FILLED 03/30/16 #20 FOR A 10 DAY THERAPY Finasteride 5 Mg Tablet 5 MG PO HS (Reported) Folic Acid 1 Mg Tablet 1 MG PO DAILY (Reported) Furosemide 40 Mg Tablet 80 MG PO DAILY (Reported) TAKES 2 (40MG) TABLET Glucosamine/MSM/Chondroitin A 1 Each Tablet 2 TAB PO DAILY (Reported) Guaifenesin/Dextromethorphan 118 Ml Liquid 5 ML PO DAILY PRN PRN CONGESTION ( Reported) Hydroxychloroquine Sulfate 200 Mg Tablet 200 MG PO BID (Reported) LAST FILLED 01/07/16 #120 Leflunomide 20 Mg Tablet 20 MG PO BID (Reported) LAST FILLED 01/14/16 #110 Loratadine 10 Mg Tablet 10 MG PO DAILY (Reported) Multivit-Min/FA/Lycopene/Lut 1 Each Tablet 1 TAB PO DAILY (Reported) [place] 3 Polyunsat Fatty Acids 1,000 Mg Cap 1,000 MG PO DAILY (Reported) Prednisone 20 Mg Tab 20 MG PO DAILY (Reported) FILLED 03/30/16 #5 FOR A 5 DAY THERAPY Spironolactone 25 Mg Tablet 25 MG PO BID (Reported) Sulfasalazine 500 Mg Tablet 1,000 MG PO BID (Reported) LAST FILLED 11/05/15 #360 / TAKES 2 (500MG) TABLETS Tacrolimus 1 Mg Capsule 1 MG PO HS (Reported) Tamsulosin HCl 0.4 Mg Cap 0.4 MG PO HS (Reported) Tiotropium [place] 4 Gm Mist.inhal 2 PUFF IH DAILY (Reported) Ubidecarenone/Vit E Acetate 1 Each Capsule 100 MG PO DAILY (Reported) Vitamin B Complex 1 Each Capsule 1 CAP PO DAILY (Reported) Warfarin Sodium 5 Mg Tablet 5 MG PO MoTuWeFrSa (Reported) Warfarin Sodium 5 Mg Tablet 2.5 MG PO SuTh (Reported) TAKES 1/2 OF A (5 MG) TABLET Physical Exam-Cardiology Physical Exam Vital Signs/I&O Vital Sign - Last 12Hours 04/02/16 04/02/16 04/02/16 04/02/16 01:03 02:42 04:00 07:00 Temp 97.2 Pulse 83 84 97 Resp 19 B/P 104/59 Pulse Ox 95 95 O2 Delivery Nasal Cannula Nasal Cannula O2 Flow Rate 3.00 3.00 04/02/16 04/02/16 04/02/16 04/02/16 07:50 09:00 09:16 09:36 Temp 96.9 Pulse 93 Resp 18 B/P 114/58 Pulse Ox 93 87 95 O2 Delivery Room Air Nasal Cannula Room Air Nasal Cannula O2 Flow Rate 3.00 2.00 Intake and Output 04/02/16 00:00 Intake Total 1475 ml Output Total 552 ml Balance 923 ml Capillary Refill : Less Than 3 Seconds Constitutional: No appears stated age, No AAO x 3, No apparent distress, No PERRL, No well-developed, No well-nourished, No other HEENT: No PERRL, No normal ENT inspection, No TMs normal, No pharynx normal, No scleral icterus (R), No scleral icterus (L), No pale conjunctivae (R), No pale conjunctivae (L), No photophobia, No TM abnormal (R), No TM abnormal (L), No pharyngeal erythema, No tonsillar exudate, No other, No discharge, No EOMI, No hearing is well preserved, No hard of hearing, No oral hygience is good, No ulceration, No xanthelasmas are seen Neck: No non-tender, No full range of motion, No supple, No normal inspection, No carotid bruit, No limited range of motion, No lymphadenopathy (R), No lymphadenopathy (L), No tender lateral, No tender midline, No thyromegaly, No other, No carotid pulses are 2 + bilaterally, No with good upstrokes Respiratory: No accessory muscle use, No respiratory distress, No chest tender , No chest expansion is symmetric, No chest is bilaterally symmetric, No lungs clear to percussion, No lungs clear to auscultation, cracklesNo rhonchi, No rales, No stridor, No wheezing, No pleural rub, No other Cardiovascular: No regular rate-rhythm, No irregularly irregular, No extra beats, No parasternal heave is noted, No JVD, No edema, No bradycardia, No tachycardia, No point of maximal impulse, No cardiac thrills are palpable, No S1 and S2, No gallop/S3, No gallop/S4, No diastolic murmur, systolic murmurNo friction rub, No click, No other Gastrointestinal: No tender, No soft, No round, No distended, No pulsatile mass , No organomegaly, No guarding, No rebound, No tenderness, No hernia, No mass, No audible bowel sounds, No abnormal bowel sounds, No abdominal bruits, No spleenomegaly, No other Rectal: deferred Extremities: No normal range of motion, No non-tender, No normal inspection, No pedal edema, No calf tenderness, No normal capillary refill, No pelvis stable , No calf tenderness, No inflammation, No pedal edema, No slow capillary refill , No swelling, No other, No abrasion, No clubbing, No cyanosis, No ecchymosis, No laceration, No no lower extremity edema bilateral, No significant edema, No tenderness, No wound Neurologic/Psychiatric: No athletic field custodian II-XII nml as tested, No no motor/sensory deficits, No alert, No normal mood/affect, No oriented x 3, No abnormal cerebellar tests, No abnormal athletic field custodian II-XII, No abnormal gait, No aphasia, No EOM palsy, No facial droop, No motor weakness, No sensory deficit, No depressed affect, No disoriented x 3, No other, No grossly intact, No power is 5/5 both on sides Skin: No normal color, No warm/dry, No cyanosis, No cool, No diaphoresis, No damp, No ecchymosis, No jaundice, No mottled, No pallor, No rash, No tattoos/ piercings, No ulcerations, No rash on exposed areas, No ulcerations on exposed areas, No other Data Review Labs Laboratory Tests 04/02/16 05:01: Alanine Aminotransferase (ALT/SGPT) 29, Albumin 3.8, Alkaline Phosphatase 41, Anion Gap 11, Aspartate Amino Transf (AST/SGOT) 53H, BUN/Creatinine Ratio 27, Basophils # (Auto) 0.0, Basophils (%) (Auto) 0, Blood Urea Nitrogen 26H, Calcium Level 8.8, Carbon Dioxide Level 23, Chloride Level 100, Creatinine 0.96 , Eosinophils # (Auto) 0.0, Eosinophils (%) (Auto) 0, Estimat Glomerular Filtration Rate > 60, Glucose Level 152H, Hematocrit 36L, Hemoglobin 11.6L, INR Comment 1.5H, Lymphocytes # (Auto) 0.7L, Lymphocytes (%) (Auto) 8L, Mean Corpuscular Hemoglobin 32, Mean Corpuscular Hemoglobin Concent 32, Mean Corpuscular Volume 99, Mean Platelet Volume 11.4H, Monocytes # (Auto) 0.6, Monocytes (%) (Auto) 7, Neutrophils # (Auto) 8.0H, Neutrophils (%) (Auto) 85H, Platelet Count 121L, Potassium Level 4.9, Prothrombin Time 18.2H, Red Blood Count 3.61L, Red Cell Distribution Width 13.4, Sodium Level 134L, Total Bilirubin 0.5, Total Protein 6.2L, White Blood Count 9.4 Microbiology 03/31/16 Blood Culture - Preliminary, Resulted No growth A/P-Cardiology Assessment/Admission Diagnosis COPD exacerbation, CAD, Moderate to severe aortic stenosis, Moderate to severe mitral regurgitation. Plan defer treatment of COPD exacerbation to the primary team. No significant heart failure on examination. valvular heart disease and coronary artery disease. Dr. Espinosa to take over care on Monday. Thank you for your consultation. Please call me if you have any questions. Jovana Barahona MD, FACP, FACC, FSCAI, FHRS, CCDS Interventional Cardiology Cardiac Electrophysiology Vascular Medicine and Endovascular Interventions Clinical Quality Measures DVT/VTE Risk/Contraindication: Risk Factor Score Per Nursin RFS Level Per Nursing on Admit: 4+=Very High Emy BARAHONA MD Apr 02, 2016 12:03 pm
[2016-04-02] MEDS: warFARin 5 MG (COUMADIN) TAB PO SCH (12:22)
[2016-04-02 12:30] VITALS: BP 114/81
[2016-04-02 12:46] LABS: BILIRUBIN,URINE NEGATIVE (NEGATIVE); KETONES,URINE NEGATIVE (NEGATIVE); LEUKOCYTE ESTERASE ,URINE NEGATIVE (NEGATIVE); NITRITE,URINE NEGATIVE (NEGATIVE); PH,URINE 5 (5-9); PROTEIN,URINE NEGATIVE (NEGATIVE); UROBILINOGEN,URINE NORMAL (NORMAL)
[2016-04-02 12:57] LABS: SQUAMOUS EPITHELIAL CELL,UR RARE /HPF
[2016-04-02 16:39] VITALS: BP 124/54
[2016-04-02] MEDS: ALFUZOSIN HCL 10 MG TAB (UROXATRAL) PO SCH (17:17)
[2016-04-02] MEDS: AZITHROMYCIN IV ADD-VANTAGE 500 MG in SODIUM CHLORIDE (ADD-VANTAGE) 250 ML IV SCH (17:17)
[2016-04-02] MEDS: NS IV SCH (19:56)
[2016-04-02] MEDS: GENTAMICIN IV SCH (19:56)
[2016-04-02 20:43] VITALS: BP 97/71
[2016-04-02] MEDS: FINASTERIDE (PROSCAR) 5 MG TAB PO SCH (20:55)
[2016-04-02] MEDS: ATORVASTATIN 80 MG (LIPITOR) TABLET PO SCH (20:55)
[2016-04-02] MEDS: ASPIRIN E.C. 81 MG (ECOTRIN) TAB PO SCH (20:55)
[2016-04-03] VITALS: BP 104/66
[2016-04-03] MEDS: RT-ALBUTEROL/IPRATROPIUM 3 ML (DUONEB) VIAL INH SCH ×4 (02:39→14:44)
[2016-04-03 04:00] VITALS: BP 111/71
[2016-04-03] MEDS: methylPREDNISolone 40 MG/ML (Solu-MEDROL) VIAL IV SCH ×2 (06:21→16:21)
[2016-04-03] MEDS: CALCIUM CARB + VIT D 600 MG (CALCARB + D) TAB PO SCH ×2 (06:22→16:21)
[2016-04-03] MEDS: CATHETER FLUSH 10 ML SYR IV SCH ×3 (06:22→20:54)
[2016-04-03] MEDS: RT-BUDESONIDE NEBS 0.5 MG/2ML (PULMICORT) AMP INH SCH ×2 (07:03→19:30)
[2016-04-03] MEDS: UMECLIDINIUM BROMIDE (INCRUSE ELLIPTA) 7'S IH SCH (07:07)
[2016-04-03 08:00] VITALS: BP 109/73
[2016-04-03] MEDS: POLYETHYLENE GLYCOL 17 GM (MIRALAX) PACK PO SCH ×2 (09:00→20:55)
[2016-04-03] MEDS: ASCORBIC ACID (VIT C) 500 MG TABLET PO SCH (09:47)
[2016-04-03] MEDS: FOLIC ACID 1 MG TAB PO SCH (09:47)
[2016-04-03] MEDS: sulfaSALAzine 500 MG (AZULFIDINE) TAB PO SCH ×2 (09:47→20:53)
[2016-04-03] MEDS: FUROSEMIDE 40 MG (LASIX) TAB PO SCH (09:47)
[2016-04-03] MEDS: BENZONATATE 100 MG (TESSALON) CAPSULE PO SCH ×3 (09:47→20:53)
[2016-04-03] MEDS: SPIRONOLACTONE 25 MG (ALDACTONE) TAB PO SCH ×2 (09:48→20:54)
[2016-04-03] MEDS: CARVEDILOL 6.25 MG (COREG) TAB PO SCH ×2 (09:48→20:53)
[2016-04-03] MEDS: LORATADINE (CLARITIN) 10 MG TAB PO SCH (09:48)
--- NOTE | 2016-04-03 10:38 | Progress Note-Hospitalist ---
Subjective HPI/CC On Admission CC: Severe dyspnea w/AECOPD HPI: This is a 75-year-old white male with a past medical history of severe COPD just established with Dr. Barba who presented to [facility] ER and was placed in observation due to shortness of breath. I have consulted both cardiology and Dr. Hoskins who is seen in his clinic this past week. Patient reports the cough is continuous even Robitussin with codeine is helping slightly but denies any significant pain issues. He does report that he feels better since arrival since receiving IV steroids and nebulizer treatments. He does not wear oxygen at night or at home at all. At this current time Dr. Hoskins is seen him and assessed him to have exacerbation of COPD and will monitor closely. 04/02/16 progress note: Patient reports she's feeling better with decreased cough and decreased shortness of breath. He still significantly fatigued. He denies chest pain and denies abdominal pain or nausea with improving appetite. Date Seen 04/03/16 Subjective/Events-last exam patient feeling better reports decreased shortness of breath. Minimal sputum production with decreased cough. He denies chest pain chills or fever. Objective Exam Vital Signs Vital Sign - Last 12Hours 03/31/16 17:20 Temp 100.3 Pulse 114 Resp 28 B/P 110/72 Pulse Ox 97 O2 Delivery Nasal Cannula O2 Flow Rate 3.00 Capillary Refill : Less Than 3 Seconds General Appearance: No Apparent Distress Obese Respiratory: Chest Non Tender No Accessory Muscle Use No Respiratory Distress Other (increased air movement mild expiratory wheezing persists posteriorly. Anterior lung gonzalez are clear) Cardiovascular: Irregularly Irregular Other (soft 1 to 2/6 systolic ejection murmur heard best left lower sternal border. No S3 or S4 appreciated.) Extremity: Normal Inspection No Pedal Edema Assessment/Plan Assessment and Plan Assess & Plan/Chief Complaint 1. Acute COPD exacerbation slowly improving. Apparently there was a history of pneumonia but chest x-ray from the reveals no infiltrates. We'll continue broncho- dilator therapy antibiotic therapy and anti-inflammatory therapy but decrease Solu-Medrol to 40 mg twice a day.. 2. Chronic atrial fibrillation despite antibiotics INR is low will give a 10 mg dose of Coumadin 1 today and then increase him to 5 mg daily with repeat INR in the morning. Will repeat BMP in the morning as well BARBIE GAR MD Apr 03, 2016 10:38
[2016-04-03] MEDS: RT-ADVAIR HFA 115/21 MCG PER PUFF IH SCH ×2 (11:21→19:30)
[2016-04-03 12:00] VITALS: BP 111/72
[2016-04-03] MEDS ORDERED: warFARin 2.5 MG (COUMADIN) TAB PO SCH (12:00)
[2016-04-03 16:00] VITALS: BP 129/74
[2016-04-03] MEDS: HYDROcodone/APAP 5 MG/325 MG (LORTAB) TAB PO PRN (16:32)
[2016-04-03] MEDS ORDERED: warFARin 10 MG (COUMADIN) TAB PO NR (18:00)
[2016-04-03] MEDS: ALFUZOSIN HCL 10 MG TAB (UROXATRAL) PO SCH (18:56)
[2016-04-03] MEDS: AZITHROMYCIN IV ADD-VANTAGE 500 MG in SODIUM CHLORIDE (ADD-VANTAGE) 250 ML IV SCH (18:57)
[2016-04-03] MEDS: RT-ALBUTEROL SULF 2.5 MG/3 ML PRE-MIX VIAL INH SCH ×2 (19:30→23:15)
[2016-04-03 20:20] VITALS: BP 117/70
[2016-04-03] MEDS: FINASTERIDE (PROSCAR) 5 MG TAB PO SCH (20:53)
[2016-04-03] MEDS: ATORVASTATIN 80 MG (LIPITOR) TABLET PO SCH (20:53)
[2016-04-03] MEDS: GENTAMICIN IV SCH (20:53)
[2016-04-03] MEDS: NS IV SCH (20:53)
[2016-04-03] MEDS: ASPIRIN E.C. 81 MG (ECOTRIN) TAB PO SCH (20:53)
[2016-04-04 00:38] VITALS: BP 110/68
[2016-04-04] MEDS: RT-ALBUTEROL SULF 2.5 MG/3 ML PRE-MIX VIAL INH SCH ×6 (02:23→21:51)
[2016-04-04 04:00] VITALS: BP 106/71
[2016-04-04] MEDS: CATHETER FLUSH 10 ML SYR IV SCH ×3 (05:43→21:56)
[2016-04-04] MEDS: guaiFENesin/CODEINE (ROBITUSSIN AC) 10ML UDC PO PRN ×2 (05:44→21:56)
[2016-04-04] MEDS: methylPREDNISolone 40 MG/ML (Solu-MEDROL) VIAL IV SCH (06:17)
[2016-04-04] MEDS: CALCIUM CARB + VIT D 600 MG (CALCARB + D) TAB PO SCH ×2 (06:17→17:43)
[2016-04-04 07:18] LABS: ANION GAP 9 MMOL/L (5-14); BLOOD UREA NITROGEN 34 MG/DL (7-18); BUN/CREATININE RATIO 32; CALCIUM 8.9 MG/DL (8.5-10.1); CARBON DIOXIDE 30 MMOL/L (21-32); CHLORIDE 95 MMOL/L (98-107); CREATININE SERUM 1.05 MG/DL (0.60-1.30); GFR ESTIMATED > 60; GLUCOSE 134 MG/DL (70-105); POTASSIUM 4.2 MMOL/L (3.6-5.0); SODIUM 134 MMOL/L (135-145)
[2016-04-04 07:22] LABS: INR 3.6 (0.8-1.4)
[2016-04-04] MEDS: RT-BUDESONIDE NEBS 0.5 MG/2ML (PULMICORT) AMP INH SCH ×2 (07:28→18:17)
[2016-04-04] MEDS: RT-ADVAIR HFA 115/21 MCG PER PUFF IH SCH ×2 (07:39→18:22)
--- NOTE | 2016-04-04 07:40 | Pulmonary Progress Note ---
Subjective Subjective/Events-last exam No complications noted currently./ Exam Exam Vital Signs Date Time Temp Pulse Resp B/P Pulse Ox O2 Delivery O2 Flow Rate FiO2 04/04/16 04:00 96.6 73 18 106/71 92 Nasal Cannula 2.00 04/04/16 02:23 94 Room Air 2.00 04/04/16 00:38 97.0 79 16 110/68 95 Nasal Cannula 2.00 04/04/16 00:18 89 04/03/16 23:15 95 Nasal Cannula 2.00 04/03/16 20:50 95 Nasal Cannula 2.00 04/03/16 20:20 96.4 104 22 117/70 95 Nasal Cannula 2.00 04/03/16 19:32 93 Nasal Cannula 2.00 04/03/16 19:06 94 04/03/16 16:00 96.2 108 20 129/74 92 Nasal Cannula 2.00 04/03/16 14:30 93 04/03/16 12:00 96.0 100 20 111/72 94 Nasal Cannula 2.00 04/03/16 11:24 Nasal Cannula 2.00 04/03/16 08:00 95.0 95 18 109/73 95 Nasal Cannula 2.00 04/03/16 08:00 95 Nasal Cannula 2.00 I & O 04/04/16 07:00 Intake Total 2910 ml Output Total 2000 ml Balance 910 ml General Appearance: No Apparent Distress Obese HEENT: PERRL/EOMI Normal ENT Inspection Pharynx Normal Neck: Full Range of Motion Normal Inspection Non Tender Supple Carotid Bruit Respiratory: Chest Non Tender No Accessory Muscle Use No Respiratory Distress Other (increased air movement mild expiratory wheezing persists posteriorly. Anterior lung gonzalez are clear) Cardiovascular: Irregularly Irregular Other (soft 1 to 2/6 systolic ejection murmur heard best left lower sternal border. No S3 or S4 appreciated.) Extremity: Normal Inspection No Pedal Edema Neurologic/Psychiatric: Alert Oriented x3 No Motor/Sensory Deficits Normal Mood/Affect Skin: Normal Color Warm/Dry Lymphatic: No Adenopathy Results Lab Laboratory Tests 04/04/16 06:47 Assessment/Plan Assessment/Plan Pneumonia -resolving - Abx -[facility] COPDAE -change solumedrol to prednisone taper -[facility] Clinical Quality Measures DVT/VTE Risk/Contraindication: Risk Factor Score Per Nursin RFS Level Per Nursing on Admit: 4+=Very High LUCINDA,NORIS M DO Apr 04, 2016 07:40
[2016-04-04] MEDS: UMECLIDINIUM BROMIDE (INCRUSE ELLIPTA) 7'S IH SCH (07:41)
[2016-04-04 08:00] VITALS: BP 122/80
--- NOTE | 2016-04-04 08:52 | Progress Note-Cardiology ---
Cardiology SOAP Progress Note Subjective: Sitting up in a chair at the bedside. States he feels 50% better, but not quite back to baseline. Feels dyspnea is improving. Continues to have productive cough of thick brown sputum. No c/o CP, palpitations, syncope or near syncope. No c/o LE edema. Objective: I&O/Vital Signs Vital Sign - Last 12Hours 04/03/16 04/04/16 04/04/16 04/04/16 23:15 00:18 00:38 02:23 Temp 97.0 Pulse 89 79 Resp 16 B/P 110/68 Pulse Ox 95 95 94 O2 Delivery Nasal Cannula Nasal Cannula Room Air O2 Flow Rate 2.00 2.00 2.00 04/04/16 04/04/16 04/04/16 04/04/16 04:00 07:28 07:39 07:41 Temp 96.6 Pulse 73 Resp 18 B/P 106/71 Pulse Ox 92 93 94 94 O2 Delivery Nasal Cannula Nasal Cannula Nasal Cannula Nasal Cannula O2 Flow Rate 2.00 2.00 2.00 2.00 04/04/16 08:00 Temp 96.3 Pulse 107 Resp 22 B/P 122/80 Pulse Ox 95 O2 Delivery Nasal Cannula O2 Flow Rate 2.00 Intake and Output 04/04/16 00:00 Intake Total 2610 ml Output Total 1500 ml Balance 1110 ml Weight (Pounds): 184 Weight (Ounces): 6.4 Weight (Calculated Kilograms): 83.852156 Constitutional: AAO x 3 Respiratory: No accessory muscle use, No respiratory distress, chest expansion is symmetric chest is bilaterally symmetric crackles wheezing ( scattered) Cardiovascular: regular rate-rhythmNo JVD, S1 and S2 systolic murmur Gastrointestional: No tender, soft round Extremities: no lower extremity edema bilateral Neurologic/Psychiatric: grossly intact Skin: No rash on exposed areas, No ulcerations on exposed areas Results/Procedures: Labs Laboratory Tests 04/04/16 06:47: Anion Gap 9, BUN/Creatinine Ratio 32, Blood Urea Nitrogen 34H, Calcium Level 8.9 , Carbon Dioxide Level 30, Chloride Level 95L, Creatinine 1.05, Estimat Glomerular Filtration Rate > 60, Glucose Level 134H, INR Comment 3.6H, Potassium Level 4.2, Prothrombin Time 36.0H, Sodium Level 134L Microbiology 03/31/16 Blood Culture - Preliminary, Resulted No growth A/P: Assessment: Shortness of breath multi-factorial Acute on chronic exacerbation of COPD - management per pulmonary and medical services Possible pneumonia Chronic CHF due to valvular heart disease (see below) - clinically compensated Card cath of 03/01/16: moderately severe mitral regurg, mod aortic stenosis ( valve area 1.1 sq cm), 70% prox stenosis of RCA, LVEF 50%, elevated LVEDP, pulmonary hypertension with mean PA pressure 42 mmHg and pulmonary vascular resistance 4 Wood units. [facility]. Chronic a fib with an average vent response of 92 bpm on Holter of 02/17/16 Chronic warfarin anticoag, followed by CAROLYN Pike as outpatient. Supra- therapeutic INR likely in some part d/t ABX tx (INR 3.6 today) MPI at [place], [place]: LVEF 45%, small amount of inferoapical ischemia Echo Mar 2015 at [facility]: mild LVH, biatrial enlargement, LVEF 45-50%, mod (mean gradient 18, valve area 0.8 sq cm), mild to mod AI, mod MR, PASP could not be calculated Echo 02/18/16 at [place], [place]: moderately severe to severe MR, severe aortic stenosis with valve area approx 0.9 sq cm, PASP 50-55 mmHg, LVEF appox 50 %, mild LVH Obesity with BMI approx 37 Quit tobacco use in 1971 Leg tiredness/claudication Notes a vague history of mild carotid arterial disease, but does not recall any details CKD stage 2 Plan: Acute on chronic exacerbation with COPD with probable pneumonia being managed by pulmonary and medical services. Supra-therapeutic INR today (3.6) likely in some d/t antibiotic tx - hold dose today and adjust as indicated Cardiac status clinically stable Continue current medications Follow lab closely Physician Assessment Physician Assessment Lungs: scattered rhonchi, prolonged exp Cor: reg A&R * As documented in our note above JOSH SNEED Apr 04, 2016 08:52 MARCK BACH MD FACP FAC CCDS Apr 04, 2016 10:44
[2016-04-04] MEDS: POLYETHYLENE GLYCOL 17 GM (MIRALAX) PACK PO SCH ×2 (09:00→20:02)
[2016-04-04] MEDS: BENZONATATE 100 MG (TESSALON) CAPSULE PO SCH ×3 (09:26→20:02)
[2016-04-04] MEDS: FOLIC ACID 1 MG TAB PO SCH (09:27)
[2016-04-04] MEDS: predniSONE 10 MG TAB PO SCH (09:27)
[2016-04-04] MEDS: ASCORBIC ACID (VIT C) 500 MG TABLET PO SCH (09:27)
[2016-04-04] MEDS: FUROSEMIDE 40 MG (LASIX) TAB PO SCH (09:27)
[2016-04-04] MEDS: LORATADINE (CLARITIN) 10 MG TAB PO SCH (09:27)
[2016-04-04] MEDS: CARVEDILOL 6.25 MG (COREG) TAB PO SCH ×2 (09:29→20:03)
[2016-04-04] MEDS: sulfaSALAzine 500 MG (AZULFIDINE) TAB PO SCH ×2 (09:29→20:02)
[2016-04-04] MEDS: SPIRONOLACTONE 25 MG (ALDACTONE) TAB PO SCH ×2 (09:29→20:03)
[2016-04-04] MEDS: HYDROcodone/APAP 5 MG/325 MG (LORTAB) TAB PO PRN (09:36)
[2016-04-04] MEDS ORDERED: KETOROLAC 30 MG/ML VIAL ONE (14:25)
[2016-04-04 15:25] VITALS: BP 111/73
--- NOTE | 2016-04-04 15:34 | Physical Therapy Evaluation ---
PT Evaluation-General Medical Diagnosis Admission Date Mar 31, 2016 at 17:35 Medical Diagnosis: Exac COPD Onset Date: Apr 04, 2016 Therapy Diagnosis Therapy Diagnosis: weakness Height/Weight Height (Feet): 5 Height (Inches): 3.00 Weight (Pounds): 184 Weight (Ounces): 6.4 Precautions Precautions/Isolations: Standard Precautions Referral Reason for Referral: Evaluation/Treatment Medical History Pertinent Medical History: Arthritis, COPD, GERD, HTN Additional Medical History depression, CHF, pneumonia, valvular heart disease, recent cardiac cath. Current History Pt admitted to [facility] with COPD exac and complaints of SOA. Reviewed History: Yes Social History Home: Apartment Current Living Status: Alone Entry Into Home: Level Entry Prior/Core FIM Prior Level of Function Functional [place] Measure 0=Not Assessed/NA 4=Minimal Assistance 1=Total Assistance 5=Supervision or Setup 2=Maximal Assistance 6=Modified [place] 3=Moderate Assistance 7=Complete [place] Bed Mobility: 7 Transfers (B,C,W/C) (FIM): 7 Gait: [address]; does own grocery shopping and with difficulty at times. PT Evaluation-Current Subjective Pt agreeable to PT. No complaints. Pain Numeric Pain Scale: 0-No Pain Location: No Pain Reported Objective Patient Orientation: Person, Place, Time, Situation Problem Solving: Good Attachments: Oxygen (in situ during and post treatment) ROM/Strength ROM Lower Extremities WFL Strenght Lower Extremities grossly 4/5 throughout Integumentary/Posture Integumentary intact Bowel Incontinence: No Bladder Incontinence: No Posture forward flexed at hips and rounded shoulders. Neuromuscular (Tone, Coordination, Reflexes) functional and intact Sensory Vision: Wears Glasses Hearing: Hearing Aid/Aides Hand Dominance: Right Sensation Right Lower Extremit: Intact Sensation Left Lower Extremity: Intact Transfers Functional [place] Measure 0=Not Assessed/NA 4=Minimal Assistance 1=Total Assistance 5=Supervision or Setup 2=Maximal Assistance 6=Modified [place] 3=Moderate Assistance 7=Complete [place] Transfers (B, C, W/C) (FIM): 5 Sit to/from Stand: 5 SBA for safety but without difficulty Gait Mode of Locomotion: Walk Anticipated Mode of Locomotion: Walk Gait (FIM): 4 Distance (FIM): 3=150 ft Distance: 150 ft x 2 Gait Level of Assist: 4 (CGA for safety) Gait Assistive Device: FWW Comments/Gait Description forward flexed and rounded shoulders, no noted LOB and tolerated well. Balance Sitting Static: Good Sitting Dynamic: Good Standing Static: Good Standing Dynamic: Good Assessment/Needs Pt presents with slight decrease in functional act tolerance and would benefit from skilled PT to address this as well and the need for assist with functional transfers and gait. Rehab Potential: Good PT Care Home Goals Care Home Goals PT Care Home Goals Time Frame: Apr 09, 2016 Transfers (B,C,W/C) (FIM): 7 Gait (FIM): 6 Gait distance (FIM): 3=150 ft Gait Assistive Device: FWW PT Plan Problem List Problem List: Activity Tolerance, Functional Strength, Safety, Gait, Transfer Treatment/Plan Treatment Plan: Continue Plan of Care Treatment Plan: Bed Mobility, Education, Functional Activity Raheem, Functional Strength, Gait, Safety, Therapeutic Exercise, Transfers Treatment Duration: Apr 09, 2016 # of days/week 5-6 Visits Per Week: 5-6 Pt/Family Agrees w/Plan: Yes Safety Risks/Education Patient Education: Transfer Techniques, Safety Issues Teaching Recipient: Patient Teaching Methods: Discussion Response to Teaching: Reinforcement Needed Time/GCodes Time In: 1430 Time Out: 1454 Total Billed Treatment Time: 24 Total Billed Treatment visit EVMod 24 CHUCHO JIMENES PT Apr 04, 2016 15:34
--- NOTE | 2016-04-04 15:46 | Progress Note-Hospitalist ---
Standard Progress Note Progress Notes/Assess & Plan Date Seen 04/04/16 Diagnosis Assessment: Acute exacerbation of COPD Severe aortic stenosis Immunosuppressive use Hyperlipidemia hyponatremia AF Assess & Plan/Chief Complaint The patient is a 75-year-old white male who was admitted here as a transfer from the [place] with an acute exacerbation of COPD. He has responded well to increased pulmonary toilet medications and antibiotics. He reports he is doing much better and has been able to walk from his room down the long [place] way to the [facility]. He then had to sit for a few minutes before he was able to walk back. This is much greater distance than is required in his home. Physical exam: He is sitting at bedside chair. He is alert and oriented. Lungs are clear to auscultation. Breath sounds are distant. CV showed distant heart tones without murmur. The rhythm was slightly irregular. Extremities showed no pedal edema. Impression: Acute exacerbation of COPD with good improvement. 2.history severe aortic stenosis. Plan: Discharge tomorrow. Labs BECK ESTEVES MD Apr 04, 2016 15:46 BECK ESTEVES MD Apr 04, 2016 15:46
--- NOTE | 2016-04-04 15:58 | Occupational Therapy Eval ---
OT Evaluation-General/PLF Medical Diagnosis Admission Date Mar 31, 2016 at 17:35 Medical Diagnosis: Exac COPD Onset Date: Apr 04, 2016 Therapy Diagnosis Therapy Diagnosis: decreased self care Height/Weight Height (Feet): 5 Height (Inches): 3.00 Weight (Pounds): 184 Weight (Ounces): 6.4 Precautions Precautions/Isolations: Standard Precautions Safety Interventions: Bed Exit Alarm Medical History Pertinent Medical History: Arthritis, COPD, GERD, HTN Additional Medical History depression, cataracts, high cholesterol, valvular heart disease, aortic stenosis Reviewed History: Yes Social History Home: Apartment Current Living Status: Alone Entry Into Home: Level Entry Pt lives alone, states he has siblings and friends nearby who can assist if needed. ADL-Prior Level of Function ADL PLOF Comments Pt reports being independent with basic self care and mobility. Does not use any assistive devices for mobility. DME/Equipment: Grab Bars, Tub/Shower Pt states he has an emergency call light in bathroom and bedroom Drive Self: Yes OT Current Status Subjective Pt sitting in chair, agrees to treatment. No reports of pain. Mental Status/Objective Patient Orientation: Person, Place, Situation Attachments: Oxygen Current Glasses/Contacts: Yes Hearing Aids: Yes Dentures/Partials: Yes Hand Dominance: Right Upper Extremity ROM Grossly functional Upper Extremity Coordination Intact Upper Extremity Sensation Pt reports occasional numbness in hands and feet Upper Extremity Strength Fair ADL-Treatment ADL-Current Pt participated in UE assessment while seated. Pt demonstrates ability to doff/ don socks without assistance. Pt sit to stand with modified independence. Pt demonstrates ability to perform transfer with SBA for safety. Pt sitting in chair with needs met after session. Functional [place] Measure 0=Not Assessed/NA 4=Minimal Assistance 1=Total Assistance 5=Supervision or Setup 2=Maximal Assistance 6=Modified [place] 3=Moderate Assistance 7=Complete IndependenceIRFPAI Quality Coding Scale 6 Independent with activity with or without an assistive device 5 Patient requires set up or clean up by helper. Patient completes activity by themselves 4 Supervision or touching assist (CGA). Chauncey provide cues , steadying assist 3 The helper provides less than half the effort to complete the activity 2 The helper provides more than half the effort to complete the activity 1 Dependent. The helper does all the effort to complete an activity 7 Patient refused to complete or attempt activity 9 The patient did not perform the activity before the current illness or injury 88 Not attempted due to Medical conditions or safety concerns Eating (FIM): 5 (Pt reports occasional assistance to open containers) Lower Body Dressing (FIM): 5 (socks only) Transfers (B, C, W/C) (FIM): 5 Education OT Patient Education: Rehab process Teaching Recipient: Patient Teaching Methods: Discussion Response to Teaching: Verbalize Understanding OT Short Term Goals Short Term Goals 1=Demonstrate adherence to instructed precautions during ADL tasks. 2=Patient will verbalize/demonstrate understanding of assistive devices/ modifications for ADL. 3=Patient will improve strength/tolerance for activity to enable patient to perform ADL's. OT Assisted Goals District Leader Goals Time Frame: 1 week Grooming(FIM): 6 Bathing(FIM): 6 Upper Body Dressing(FIM): 6 Lower Body Dressing(FIM): 6 Toileting(FIM): 6 Toilet/Commode Transfer(FIM): 6 Additional Goals: 1-Demonstrate ADL Tasks, 2-Verbalize Understanding, 3- ImproveStrength/Raheem 1=Demonstrate adherence to instructed precautions during ADL tasks. 2=Patient will verbalize/demonstrate understanding of assistive devices/ modifications for ADL. 3=Patient will improve strength/tolerance for activity to enable patient to perform ADL's. OT Education/Plan Problem List/Assessment Assessment: Decreased Activ Tolerance, Decreased UE Strength, Dependent Transfers, Impaired Self-Care Skills Pt to benefit from skilled OT intervention while hospitalized to increase level of independence and allow safe discharge home. Discharge Recommendations Plan/Recommendations: Continue POC Treatment Plan/Plan of Care Treatment,Training & Education: Yes Patient would benefit from OT for education, treatment and training to promote independence in ADL's, mobility, safety and/or upper extremity function for ADL' s. Plan of Care: ADL Retraining, Functional Mobility, UE Funct Exercise/Act Treatment Duration: Apr 11, 2016 # of days/week 5 Visits Per Week: 5 Agreement: Yes Rehab Potential: Good Time/GCodes Start Time: 14:59 Stop Time: 15:19 Total Time Billed (hr/min): 20 Billed Treatment Time 1 visit, YING(20minutes) NONA SEO OT Apr 04, 2016 15:58
[2016-04-04] MEDS: ALFUZOSIN HCL 10 MG TAB (UROXATRAL) PO SCH (17:43)
[2016-04-04] MEDS: AZITHROMYCIN IV ADD-VANTAGE 500 MG in SODIUM CHLORIDE (ADD-VANTAGE) 250 ML IV SCH (17:44)
[2016-04-04] MEDS ORDERED: warFARin 5 MG (COUMADIN) TAB PO SCH (18:00)
[2016-04-04 19:30] VITALS: BP 112/65
[2016-04-04] MEDS: ASPIRIN E.C. 81 MG (ECOTRIN) TAB PO SCH (20:02)
[2016-04-04] MEDS: FINASTERIDE (PROSCAR) 5 MG TAB PO SCH (20:03)
[2016-04-04] MEDS: ATORVASTATIN 80 MG (LIPITOR) TABLET PO SCH (20:03)
[2016-04-05] VITALS: BP 109/63
[2016-04-05] MEDS: RT-ALBUTEROL SULF 2.5 MG/3 ML PRE-MIX VIAL INH SCH ×4 (02:30→14:37)
[2016-04-05 04:00] VITALS: BP 103/58
[2016-04-05 05:14] LABS: INR 5.7 (0.8-1.4); PROTHROMBIN TIME PATIENT 52.1 SEC (12.2-14.7)
[2016-04-05] MEDS: CATHETER FLUSH 10 ML SYR IV SCH ×2 (06:02→14:00)
[2016-04-05] MEDS: CALCIUM CARB + VIT D 600 MG (CALCARB + D) TAB PO SCH (06:02)
--- NOTE | 2016-04-05 07:13 | Pulmonary Progress Note ---
Subjective Subjective/Events-last exam pt feels improved. No complications noted. Exam Exam Vital Signs Date Time Temp Pulse Resp B/P Pulse Ox O2 Delivery O2 Flow Rate FiO2 04/05/16 04:00 94.0 91 18 103/58 94 Nasal Cannula 2.00 04/05/16 02:30 93 Nasal Cannula 2.00 04/05/16 01:00 82 04/05/16 00:00 97.4 89 18 109/63 95 Nasal Cannula 2.00 04/04/16 21:52 95 Nasal Cannula 2.00 04/04/16 20:05 Nasal Cannula 2.00 04/04/16 19:30 96.8 105 22 112/65 94 Nasal Cannula 2.00 04/04/16 19:00 110 04/04/16 18:22 94 Nasal Cannula 2.00 04/04/16 18:18 94 Nasal Cannula 2.00 04/04/16 18:13 94 Nasal Cannula 2.00 04/04/16 15:25 96.7 76 18 111/73 93 Nasal Cannula 2.00 04/04/16 14:23 94 Nasal Cannula 2.00 04/04/16 13:00 91 04/04/16 11:15 94 Nasal Cannula 2.00 04/04/16 08:00 94 Nasal Cannula 2.00 04/04/16 08:00 96.3 107 22 122/80 95 Nasal Cannula 2.00 04/04/16 07:41 94 Nasal Cannula 2.00 04/04/16 07:39 94 Nasal Cannula 2.00 04/04/16 07:28 93 Nasal Cannula 2.00 I & O 04/05/16 07:00 Intake Total 3450 ml Output Total 2525 ml Balance 925 ml General Appearance: No Apparent Distress Obese HEENT: PERRL/EOMI Normal ENT Inspection Pharynx Normal Neck: Full Range of Motion Normal Inspection Non Tender Supple Carotid Bruit Respiratory: Chest Non Tender No Accessory Muscle Use No Respiratory Distress Other (increased air movement mild expiratory wheezing persists posteriorly. Anterior lung gonzalez are clear) Cardiovascular: Irregularly Irregular Other (soft 1 to 2/6 systolic ejection murmur heard best left lower sternal border. No S3 or S4 appreciated.) Extremity: Normal Inspection No Pedal Edema Neurologic/Psychiatric: Alert Oriented x3 No Motor/Sensory Deficits Normal Mood/Affect Skin: Normal Color Warm/Dry Lymphatic: No Adenopathy Results Lab Laboratory Tests 04/04/16 06:47 Assessment/Plan Assessment/Plan Pneumonia -resolving - Abx -SVNS COPDAE - prednisone taper -SVNS Clinical Quality Measures DVT/VTE Risk/Contraindication: Risk Factor Score Per Nursin RFS Level Per Nursing on Admit: 4+=Very High NORIS JANE DO Apr 05, 2016 07:13
--- NOTE | 2016-04-05 07:33 | Pulmonary Progress Note ---
Subjective Subjective/Events-last exam No complications noted. Exam Exam Vital Signs Date Time Temp Pulse Resp B/P Pulse Ox O2 Delivery O2 Flow Rate FiO2 04/05/16 04:00 94.0 91 18 103/58 94 Nasal Cannula 2.00 04/05/16 02:30 93 Nasal Cannula 2.00 04/05/16 01:00 82 04/05/16 00:00 97.4 89 18 109/63 95 Nasal Cannula 2.00 04/04/16 21:52 95 Nasal Cannula 2.00 04/04/16 20:05 Nasal Cannula 2.00 04/04/16 19:30 96.8 105 22 112/65 94 Nasal Cannula 2.00 04/04/16 19:00 110 04/04/16 18:22 94 Nasal Cannula 2.00 04/04/16 18:18 94 Nasal Cannula 2.00 04/04/16 18:13 94 Nasal Cannula 2.00 04/04/16 15:25 96.7 76 18 111/73 93 Nasal Cannula 2.00 04/04/16 14:23 94 Nasal Cannula 2.00 04/04/16 13:00 91 04/04/16 11:15 94 Nasal Cannula 2.00 04/04/16 08:00 94 Nasal Cannula 2.00 04/04/16 08:00 96.3 107 22 122/80 95 Nasal Cannula 2.00 04/04/16 07:41 94 Nasal Cannula 2.00 04/04/16 07:39 94 Nasal Cannula 2.00 I & O 04/05/16 07:00 Intake Total 3450 ml Output Total 2525 ml Balance 925 ml General Appearance: No Apparent Distress Obese HEENT: PERRL/EOMI Normal ENT Inspection Pharynx Normal Neck: Full Range of Motion Normal Inspection Non Tender Supple Carotid Bruit Respiratory: Chest Non Tender No Accessory Muscle Use No Respiratory Distress Other (increased air movement mild expiratory wheezing persists posteriorly. Anterior lung gonzalez are clear) Cardiovascular: Irregularly Irregular Other (soft 1 to 2/6 systolic ejection murmur heard best left lower sternal border. No S3 or S4 appreciated.) Extremity: Normal Inspection No Pedal Edema Neurologic/Psychiatric: Alert Oriented x3 No Motor/Sensory Deficits Normal Mood/Affect Skin: Normal Color Warm/Dry Lymphatic: No Adenopathy Results Lab Laboratory Tests 04/04/16 06:47 Assessment/Plan Assessment/Plan Pneumonia -resolving - Abx- will d/c today -SVNS COPDAE - prednisone taper -SVNS Oxygen desaturation testing. Pt is ok for discharge from pulmonary standpoint. Clinical Quality Measures DVT/VTE Risk/Contraindication: Risk Factor Score Per Nursin RFS Level Per Nursing on Admit: 4+=Very High NORIS JANE DO Apr 05, 2016 07:32
[2016-04-05] MEDS: RT-ADVAIR HFA 115/21 MCG PER PUFF IH SCH (07:47)
[2016-04-05] MEDS: UMECLIDINIUM BROMIDE (INCRUSE ELLIPTA) 7'S IH SCH (07:47)
[2016-04-05 08:30] VITALS: BP 120/80
[2016-04-05] MEDS: CARVEDILOL 6.25 MG (COREG) TAB PO SCH (08:48)
[2016-04-05] MEDS: BENZONATATE 100 MG (TESSALON) CAPSULE PO SCH ×2 (08:48→14:19)
[2016-04-05] MEDS: SPIRONOLACTONE 25 MG (ALDACTONE) TAB PO SCH (08:49)
[2016-04-05] MEDS: FUROSEMIDE 40 MG (LASIX) TAB PO SCH (08:49)
[2016-04-05] MEDS: LORATADINE (CLARITIN) 10 MG TAB PO SCH (08:49)
[2016-04-05] MEDS: FOLIC ACID 1 MG TAB PO SCH (08:49)
[2016-04-05] MEDS: sulfaSALAzine 500 MG (AZULFIDINE) TAB PO SCH (08:49)
[2016-04-05] MEDS: ASCORBIC ACID (VIT C) 500 MG TABLET PO SCH (08:49)
[2016-04-05] MEDS: POLYETHYLENE GLYCOL 17 GM (MIRALAX) PACK PO SCH (08:50)
[2016-04-05] MEDS: predniSONE 10 MG TAB PO SCH (08:50)
--- NOTE | 2016-04-05 09:24 | Progress Note-Cardiology ---
Cardiology SOAP Progress Note Subjective: No new c/o. States he is feeling better today. Planning on discharging home later today. Objective: I&O/Vital Signs Vital Sign - Last 12Hours 04/05/16 04/05/16 04/05/16 04/05/16 04:00 07:00 07:46 07:52 Temp 94.0 Pulse 91 121 Resp 18 B/P 103/58 Pulse Ox 94 96 94 O2 Delivery Nasal Cannula Nasal Cannula O2 Flow Rate 2.00 2.00 04/05/16 04/05/16 04/05/16 04/05/16 07:54 07:59 08:30 09:11 Temp 97.1 Pulse 97 Resp 18 B/P 120/80 Pulse Ox 94 96 96 O2 Delivery Nasal Cannula Nasal Cannula O2 Flow Rate 2.00 2.00 2.00 04/05/16 04/05/16 04/05/16 11:29 12:30 14:37 Temp 97.1 Pulse 94 Resp 20 B/P 110/70 Pulse Ox 96 82 85 O2 Delivery Nasal Cannula Nasal Cannula Room Air O2 Flow Rate 2.00 2.00 Intake and Output 04/05/16 00:00 Intake Total 3050 ml Output Total 1975 ml Balance 1075 ml Weight (Pounds): 176 Weight (Ounces): 4.0 Weight (Calculated Kilograms): 79.551218 Constitutional: AAO x 3 Respiratory: No accessory muscle use, No respiratory distress, chest expansion is symmetric chest is bilaterally symmetric wheezing (scattered) Cardiovascular: regular rate-rhythmNo JVD, S1 and S2 systolic murmur Gastrointestional: No tender, soft round Extremities: no lower extremity edema bilateral Neurologic/Psychiatric: grossly intact Skin: No rash on exposed areas, No ulcerations on exposed areas Results/Procedures: Labs Laboratory Tests 04/05/16 04:25: INR Comment 5.7*H, Prothrombin Time 52.1*H Microbiology 03/31/16 Blood Culture - Preliminary, Resulted No growth A/P: Assessment: Shortness of breath multi-factorial Acute on chronic exacerbation of COPD - management per pulmonary and medical services Possible pneumonia Chronic CHF due to valvular heart disease (see below) - clinically compensated Card cath of 03/01/16: moderately severe mitral regurg, mod aortic stenosis ( valve area 1.1 sq cm), 70% prox stenosis of RCA, LVEF 50%, elevated LVEDP, pulmonary hypertension with mean PA pressure 42 mmHg and pulmonary vascular resistance 4 Wood units. [facility]. Chronic a fib with an average vent response of 92 bpm on Holter of 02/17/16 Chronic warfarin anticoag, followed by CAROLYN Pike as outpatient. Supra- therapeutic INR likely in some part d/t ABX tx (INR 3.6 today) MPI at [place], [place]: LVEF 45%, small amount of inferoapical ischemia Echo Mar 2015 at [facility]: mild LVH, biatrial enlargement, LVEF 45-50%, mod (mean gradient 18, valve area 0.8 sq cm), mild to mod AI, mod MR, PASP could not be calculated Echo 02/18/16 at [place], [place]: moderately severe to severe MR, severe aortic stenosis with valve area approx 0.9 sq cm, PASP 50-55 mmHg, LVEF appox 50 %, mild LVH Obesity with BMI approx 37 Quit tobacco use in 1971 Leg tiredness/claudication Notes a vague history of mild carotid arterial disease, but does not recall any details CKD stage 2 Plan: Acute on chronic exacerbation with COPD with probable pneumonia being managed by pulmonary and medical services. Supra-therapeutic INR today (5.7) likely in some d/t antibiotic tx - hold dose until INR is below 3.0 Advise INR on Cardiac status clinically stable Continue current medications F/U appt Plan is to discharge home today per medical services Physician Assessment Physician Assessment Lungs: increased exp phase, a few scattered rhonchi over large airways Cor: reg A&R * As documented in our note above JOSH SNEED Apr 05, 2016 09:24 MARCK BACH MD FACP FAC CCDS Apr 05, 2016 15:15
--- NOTE | 2016-04-05 09:25 | Discharge Summary-Hospitalist ---
Diagnosis/Chief Complaint Date of Admission Mar 31, 2016 at 17:35 Date of Discharge Admission Diagnosis Assessment: Acute exacerbation of COPD Severe aortic stenosis Immunosuppressive use Hyperlipidemia hyponatremia AF Discharge Diagnosis Assessment: Acute exacerbation of COPD Severe aortic stenosis Immunosuppressive use Hyperlipidemia hyponatremia AF IV steroids Empiric antibiotic for bronchitis Monitor INR Reconcile all home meds and held most of immunosuppressive Monitor closely Palliative care May need BiPAP Reason Hospital Visit/Course CC: Severe dyspnea w/AECOPD HPI: This is a 75-year-old white male with a past medical history of severe COPD just established with Dr. Barba who presented to [facility] ER and was placed in observation due to shortness of breath. I have consulted both cardiology and Dr. Hoskins who is seen in his clinic this past week. Patient reports the cough is continuous even Robitussin with codeine is helping slightly but denies any significant pain issues. He does report that he feels better since arrival since receiving IV steroids and nebulizer treatments. He does not wear oxygen at night or at home at all. At this current time Dr. Hoskins is seen him and assessed him to have exacerbation of COPD and will monitor closely. 04/02/16 progress note: Patient reports she's feeling better with decreased cough and decreased shortness of breath. He still significantly fatigued. He denies chest pain and denies abdominal pain or nausea with improving appetite. Note from 04/05/16 Patient doing very well and once discharge Bowels are moving well Home O2 evaluation is in process Discharge is planned Hospital course: Patient had an uneventful but lengthy hospital course due to the severity of his COPD exacerbation along with severe aortic stenosis. Dr. Hoskins and Dr. Anaya were consulted and overall patient improved on IV steroids and was evaluated for home O2. Palliative care was consulted because of just the overall severe complexities of his comorbidities. He had completed Zithromax during hospitalization and was ready for discharge on home health to try to prevent readmissions and close follow-up with Dr. Barba, Dr. Hoskins, and Dr. Espinosa. Discharge Summary Discharge Physical Examination Allergies: Coded Allergies: Penicillins (Verified Allergy, Unknown, 03/01/16) cephalexin (Verified Allergy, Unknown, 03/01/16) ciprofloxacin (Verified Allergy, Unknown, 03/01/16) methotrexate (Verified Allergy, Unknown, 03/01/16) Vitals & I&Os Vital Signs Date Time Temp Pulse Resp B/P Pulse Ox O2 Delivery O2 Flow Rate FiO2 04/05/16 07:59 Nasal Cannula 2.00 04/05/16 07:54 94 04/05/16 07:00 121 04/05/16 04:00 94.0 18 103/58 Hospital Course Labs (last 24 hrs) Laboratory Tests 04/05/16 04:25: INR Comment 5.7*H, Prothrombin Time 52.1*H Microbiology 03/31/16 Blood Culture - Preliminary, Resulted No growth Pending Labs Laboratory Tests 04/05/16 04:25: INR Comment 5.7, Prothrombin Time 52.1 Discharge Home Medications: Active Scripts Active Prednisone 10 Mg Tab.ds.pk 10 Mg PO DAILY Take 6 tabs(60mg)daily,decrease by 1 tab(10mg)every other day. Reported Warfarin Sodium 5 Mg Tablet 2.5 Mg PO SUTH TAKES 1/2 OF A (5 MG) TABLET Doxycycline Monohydrate 100 Mg Capsule 100 Mg PO BID FILLED 03/30/16 #20 FOR A 10 DAY THERAPY Prednisone 20 Mg Tab 20 Mg PO DAILY FILLED 03/30/16 #5 FOR A 5 DAY THERAPY Complete Multi 50+ Tablet (Multivit-Min/FA/Lycopene/Lut) 1 Each Tablet 1 Tab PO DAILY Diabetic Tussin Dm Max-Str Liq (Guaifenesin/Dextromethorphan) 118 Ml Liquid 5 Ml PO DAILY PRN Glucosamine Chondroit MSM Tab (Glucosamine/MSM/Chondroitin A) 1 Each Tablet 2 Tab PO DAILY Calcium 600 + Vit D 800 Tab (Calcium Carbonate/Vitamin D3) 1 Each Tablet 1 Tab PO BID Acetaminophen ER (Acetaminophen) 650 Mg Tablet.er 1,300 Mg PO BID PRN TAKES 2 (650 MG) TABLETS Aldactone (Spironolactone) 25 Mg Tablet 25 Mg PO BID Warfarin Sodium 5 Mg Tablet 5 Mg PO MOTUWEFRSA Vitamin B Complex 1 Each Capsule 1 Cap PO DAILY Spiriva Respimat (Tiotropium [place]) 4 Gm Mist.inhal 2 Puff IH DAILY Flomax (Tamsulosin HCl) 0.4 Mg Cap 0.4 Mg PO HS Tacrolimus 1 Mg Capsule 1 Mg PO HS Sulfasalazine 500 Mg Tablet 1,000 Mg PO BID LAST FILLED 11/05/15 #360 / TAKES 2 (500MG) TABLETS Loratadine 10 Mg Tablet 10 Mg PO DAILY Leflunomide 20 Mg Tablet 20 Mg PO BID LAST FILLED 01/14/16 #110 Hydroxychloroquine Sulfate 200 Mg Tablet 200 Mg PO BID LAST FILLED 01/07/16 #120 Furosemide 40 Mg Tablet 80 Mg PO DAILY TAKES 2 (40MG) TABLET Folic Acid 1 Mg Tablet 1 Mg PO DAILY Fish Oil 1,000 mg Capsule ([place] 3 Polyunsat Fatty Acids) 1,000 Mg Cap 1,000 Mg PO DAILY Finasteride 5 Mg Tablet 5 Mg PO HS Co Q-10 100 mg Softgel (Ubidecarenone/Vit E Acetate) 1 Each Capsule 100 Mg PO DAILY Carvedilol 6.25 Mg Tablet 3.125 Mg PO BID TAKES 1/2 OF A (6.25 MG) TABLET Symbicort 160-4.5 Mcg Inhaler (Budesonide/Formoterol Fumarate) 10.2 Gm Hfa.aer.ad 2 Puff IH BID Atorvastatin Calcium 80 Mg Tablet 80 Mg PO HS LAST FILLED 11/05/15 #90 Aspirin EC (Aspirin) 81 Mg Tablet.dr 81 Mg PO HS Vitamin C (Ascorbate Calcium) 500 Mg Tablet 500 Mg PO DAILY Alendronate Sodium 70 Mg Tablet 70 Mg PO MEIER LAST FILLED 11/05/15 #12 Proventil Hfa (Albuterol Sulfate) 6.7 Gm Hfa.aer.ad 2 Puff IH BID Instructions to patient/family Please see electonic discharge instructions given to patient. Clinical Quality Measures DVT/VTE Risk/Contraindication: Risk Factor Score Per Nursin RFS Level Per Nursing on Admit: 4+=Very High BUCK ARMENDARIZ DO Apr 05, 2016 09:25
[2016-04-05] MEDS ORDERED: PRED10TA22 PO (09:26)
--- NOTE | 2016-04-05 09:29 | Discharge Inst-Home Health ---
Discharge Inst-to Home Health Patient Instructions Patient Instructions/FollowUp: Dr Barba in [address] Espinosa in [address] Hoskins in 2 weeks Patient Problems: Severe COPD Hypoxia Aortic stenosis [place]IA [place], [place] DISCHARGE ORDERS Allergies: Coded Allergies: Penicillins (Verified Allergy, Unknown, 03/01/16) cephalexin (Verified Allergy, Unknown, 03/01/16) ciprofloxacin (Verified Allergy, Unknown, 03/01/16) methotrexate (Verified Allergy, Unknown, 03/01/16) Height (Feet): 5 Height (Inches): 3.00 Weight (Pounds): 176 Weight (Ounces): 4.0 Home Health Need/Face to Face Reason Pt Homebound weakness, severe COPD I Have Seen Pt [id number]: Yes Date of Face to Face: Apr 05, 2016 Discharged To: Home Diagnosis/Conditions HH Order: Med administration Hypoxia monitoring New O2 Consult/Follow Up/New Order *I certify that based on my findings, the following services are medically necessary Home Health Services: Services: Nursing Services, Diesel Engine I Pipe Fitter-Evaluate & Treat, Physical Therapy-Evaluate & Treat My clinical findings support the need for the above services; see Diagnosis. Dicharge Diet: Cardiac Diet Daily Activity as Tolerated: Yes Discharge Medications: New, Converted, or Re-newed RX: Transmited to Pharmacy I certify that this patient is under my care and that I, a nurse practitioner or a physician; a orthodontic technician assistant working with me, had a face to face encounter that - meets the physician face to face encounter requirements with this patient as dated. BUCK ARMENDARIZ DO Apr 05, 2016 09:29
--- NOTE | 2016-04-05 09:43 | Physical Therapy Daily Note ---
PT Daily Note-Current Subjective Patient states he is going home today, however, agrees to PT. Pain Numeric Pain Scale: 0-No Pain Location: No Pain Reported Mental Status Patient Orientation: Normal For Age Attachments: Oxygen Transfers Functional [place] Measure 0=Not Assessed/NA 4=Minimal Assistance 1=Total Assistance 5=Supervision or Setup 2=Maximal Assistance 6=Modified [place] 3=Moderate Assistance 7=Complete IndependenceIRFPAI Quality Coding Scale 6 Independent with activity with or without an assistive device 5 Patient requires set up or clean up by helper. Patient completes activity by themselves 4 Supervision or touching assist (CGA). [place] provide cues , steadying assist 3 The helper provides less than half the effort to complete the activity 2 The helper provides more than half the effort to complete the activity 1 Dependent. The helper does all the effort to complete an activity 7 Patient refused to complete or attempt activity 9 The patient did not perform the activity before the current illness or injury 88 Not attempted due to Medical conditions or safety concerns Transfers (B, C, W/C) (FIM): 6 Scootin Sit to/from Stand: 6 Gait Training Gait (FIM): 6 Distance (FIM): 3=150 ft Distance: 300' x 2 Gait Level of Assist: 6 Gait Assistive Device: FWW safe and functional Assessment Patient tolerated treatment and returned to room with RT present. PT recommends FWW for home use. DC at this time. PT Nursing Home Goals Experience Design Director Goals PT Experience Design Director Goals Time Frame: Apr 09, 2016 Transfers (B,C,W/C) (FIM): 7 Gait (FIM): 6 Gait distance (FIM): 3=150 ft Gait Assistive Device: FWW PT Plan Treatment/Plan Treatment Plan: Discontinue PT Treatment Plan: Bed Mobility, Education, Functional Activity Raheem, Functional Strength, Gait, Safety, Therapeutic Exercise, Transfers Treatment Duration: Apr 09, 2016 Visits Per Week: 5-6 Time/GCodes Time In: 855 Time Out: 910 Total Billed Treatment Time: 15 Total Billed Treatment 1 visit FA 15 min PENG RESENDEZ PT Apr 05, 2016 09:43
--- NOTE | 2016-04-05 09:59 | Occupational Ther Daily Note ---
OT Current Status-Daily Note Subjective Pt alert, sitting up in chair. Pt agreed to therapy. No c/o pain at this time. Physician came into room and discussed pt's d/c from hospital today. Mental Status/Objective Patient Orientation: Person, Place, Time, Situation Functional [place] Measure 0=Not Assessed/NA 4=Minimal Assistance 1=Total Assistance 5=Supervision or Setup 2=Maximal Assistance 6=Modified [place] 3=Moderate Assistance 7=Complete [place] Attachments: IV Other Treatment OT discussed with pt home bathroom safety and AE. Pt stated he has grabbars in his bathtub and is able to step into it though no tub seat. OT recommended to pt to get tub seat for safety. OT then educated pt on UE exercises with medium (red) resistance theraband. Pt demonstrated understanding by completing 4 exercises 10x's each. After therapy, pt sitting in recliner with call light/ phone in reach. All needs met in room. Education OT Patient Education: Home exercise program, Safety issues Teaching Recipient: Patient Teaching Methods: Demonstration, Discussion Response to Teaching: Verbalize Understanding, Return Demonstration OT Short Term Goals Short Term Goals 1=Demonstrate adherence to instructed precautions during ADL tasks. 2=Patient will verbalize/demonstrate understanding of assistive devices/ modifications for ADL. 3=Patient will improve strength/tolerance for activity to enable patient to perform ADL's. OT [facility] Goals Blending Coordinator Goals Time Frame: 1 week Grooming(FIM): 6 Bathing(FIM): 6 Upper Body Dressing(FIM): 6 Lower Body Dressing(FIM): 6 Toileting(FIM): 6 Toilet/Commode Transfer(FIM): 6 Additional Goals: 1-Demonstrate ADL Tasks, 2-Verbalize Understanding, 3- ImproveStrength/Raheem 1=Demonstrate adherence to instructed precautions during ADL tasks. 2=Patient will verbalize/demonstrate understanding of assistive devices/ modifications for ADL. 3=Patient will improve strength/tolerance for activity to enable patient to perform ADL's. OT Education/Plan Problem List/Assessment Pt to benefit from skilled OT intervention while hospitalized to increase level of independence and allow safe discharge home. Discharge Recommendations Plan/Recommendations: Continue POC Treatment Plan/Plan of Care Patient would benefit from OT for education, treatment and training to promote independence in ADL's, mobility, safety and/or upper extremity function for ADL' s. Plan of Care: ADL Retraining, Functional Mobility, UE Funct Exercise/Act Treatment Duration: Apr 11, 2016 Visits Per Week: 5 Agreement: Yes Rehab Potential: Good Time/GCodes Start Time: 09:30 Stop Time: 09:40 Total Time Billed (hr/min): 10 Billed Treatment Time 1 visit-EX 1 (10 min) CHUCHO HENRY Apr 05, 2016 09:59
[2016-04-05 12:30] VITALS: BP 110/70
[2016-04-05 16:03] VITALS: BP 110/70
--- NOTE | 2016-04-07 09:48 | Physician Query-General Query ---
Physician Query-General Query to Physician: 1. Documentation in the record states negative CXR and probable pneumonia. Please clarify whether or not the patient had pneumonia. 2. What type of chronic CHF does the patient have systolic, diastolic or both? PHYSICIAN RESPONSE: Based on the clinical findings in the record, please respond to the query above on this document as an addendum. Possible, probable, or questionable diagnosis can be coded for INPATIENTS ONLY. Physician Response: Physician Response Pneumonia Both If you have questions please contact: Middle School English Teacher: Sean Ext: [phone] Thank you for your time and cooperation. Clinical Drafting Clerk/Middle School English Teacher This is a permanent part of the medical record SEAN PACHECO Apr 07, 2016 09:48 BUCK ARMENDARIZ DO Apr 07, 2016 12:09
[2016-05-25] MEDS ORDERED: HYDR-3812 PO (11:57)
== END 2016-04-05 15:40 | disposition home health service (06) | DRG 190 ==
LOC: 4TH 17:35
PROVIDERS: ADMIT Internal Medicine; ATTEND Internal Medicine
DX: J44.0 Chronic obstructive pulmonary disease with (acute) lower respiratory infection (principal); J18.9 Pneumonia, unspecified organism; J44.1 Chronic obstructive pulmonary disease with (acute) exacerbation; K21.9 Gastro-esophageal reflux disease without esophagitis; I08.0 Rheumatic disorders of both mitral and aortic valves; I50.42 Chronic combined systolic (congestive) and diastolic (congestive) heart failure; E87.1 Hypo-osmolality and hyponatremia; K59.09 Other constipation; I48.2 Chronic atrial fibrillation; E78.5 Hyperlipidemia, unspecified; I25.10 Atherosclerotic heart disease of native coronary artery without angina pectoris; I27.2 Other secondary pulmonary hypertension; N18.2 Chronic kidney disease, stage 2 (mild); Z79.01 Long term (current) use of anticoagulants; Z87.891 Personal history of nicotine dependence
CPT/HCPCS: 36415; 71020; 80048; 80053; 80170; 81000; 82805; 82962; 83605; 85025; 85610; 87040; 94640; 94664; 94760; 94761

== ENCOUNTER → 2016-05-18 | Outpatient (CLI) | payer MEDICARE, OTHER ==
[~2016-05-18] MED LIST changes: +ACET-2422 PO; +CALC-901 PO; +DIGO250T15 PO; +DOXY100C42 PO; +FA/M1TAB29 PO; +GLUC-173 PO; +GUAI118L69 PO; +HYDR-3812 PO; +METO-272 PO; +PRD20T PO; +PRED10TA22 PO; +VITAMIN D3 PO; +WARF2.5T PO; +WARF5TAB PO
--- OUTSIDE RECORDS SUMMARY | 2016-05-18 10:58 | XMS REPORT | Continuity of Care Document ---
Author Author [facility] Organization [facility] Address Unknown Phone Unavailable Care Team Providers Care Tattooer Name Role Phone DREA BARBA DO PCP Insurance Providers Payer Name Policy Number Subscriber Name Relationship Veterans Choice [id number] lAessio Cordero 18 Self / Same As Patient Advance Directives Directive Response Recorded Date/Time Advance Directives Yes 03/31/16 6:50pm Health Care Power of Microsoft Exchange Administrator Yes 03/31/16 6:50pm Organ Donor No 03/31/16 6:50pm Resuscitation Status Full Code 03/31/16 6:50pm Chief Complaint and Reason for Visit Chief Complaint EXACERBATION COPD Reason for Visit CAD (coronary artery disease) CKD (chronic kidney disease), stage III Chronic obstructive asthma with exacerbation LIMITATION OF ACTIVITIES DUE TO DISABILITY RESPIRATORY FAILURE, UNSP, UNSP W HYPOXIA OR HYPERCAPNIA Problems Active Problems Medical Problem Onset Date Status Anticoagulant prescribed Unknown Acute CAD (coronary artery disease) Unknown Acute CKD (chronic kidney disease), stage III Unknown Acute Chronic obstructive asthma with exacerbation Unknown Acute LIMITATION OF ACTIVITIES DUE TO DISABILITY Unknown Acute RESPIRATORY FAILURE, UNSP, UNSP W HYPOXIA OR HYPERCAPNIA Unknown Acute Medications Current Home Medications Medication Dose Units Route Directions Days/Qty Instructions Start Date Albuterol Sulfate 6.7 Gm 2 Puff Inhalation Twice A Day 03/01/16 Alendronate Sodium 70 Mg 70 Mg Oral Every Monday LAST FILLED 11/05/15 # 12 03/01/16 Ascorbate Calcium 500 Mg 500 Mg Oral Daily 03/01/16 Aspirin 81 Mg 81 Mg Oral Bedtime 03/01/16 Atorvastatin Calcium 80 Mg 80 Mg Oral Bedtime LAST FILLED 11/05/15 #90 03/01/16 Budesonide/Formoterol Fumarate 10.2 Gm 2 Puff Inhalation Twice A Day 03/01/16 Carvedilol 6.25 Mg 3.125 Mg Oral Twice A Day TAKES 1/2 OF A (6.25 MG) TABLET 03/01/16 Ubidecarenone/Vit E Acetate 1 Each 100 Mg Oral Daily 03/01/16 Finasteride 5 Mg 5 Mg Oral Bedtime 03/01/16 [place] 3 Polyunsat Fatty Acids 1,000 Mg 1,000 Mg Oral Daily 03/01/16 Folic Acid 1 Mg 1 Mg Oral Daily 03/01/16 Furosemide 40 Mg 80 Mg Oral Daily TAKES 2 (40MG) TABLET 03/01/16 Leflunomide 20 Mg 20 Mg Oral Twice A Day LAST FILLED 01/14/16 #110 Loratadine 10 Mg 10 Mg Oral Daily 03/01/16 Sulfasalazine 500 Mg 1,000 Mg Oral Twice A Day LAST FILLED 11/05/15 # 360 / TAKES 2 (500MG) TABLETS 03/01/16 Tacrolimus 1 Mg 1 Mg Oral Bedtime 03/01/16 Tamsulosin Hcl 0.4 Mg 0.4 Mg Oral Bedtime 03/01/16 Tiotropium [place] 4 Gm 2 Puff Inhalation Daily 03/01/16 Vitamin B Complex 1 Each 1 Cap Oral Daily 03/01/16 Spironolactone 25 Mg 25 Mg Oral Twice A Day 03/01/16 Acetaminophen 650 Mg 1,300 Mg Oral Twice A Day as needed for Pain TAKES 2 (650 MG) TABLETS 04/01/16 Calcium Carbonate/Vitamin D3 1 Each 1 Tab Oral Twice A Day 04/01/16 Glucosamine/Msm/Chondroitin A 1 Each 2 Tab Oral Daily 04/01/16 Guaifenesin/Dextromethorphan 118 Ml 5 Ml Oral Daily as needed for Congestion 04/01/16 Multivit-Min/Fa/Lycopene/Lut 1 Each 1 Tab Oral Daily 04/01/16 Prednisone 20 Mg 20 Mg Oral Daily FILLED 03/30/16 #5 FOR A 5 DAY THERAPY 04/01/16 Prednisone 10 Mg 10 Mg Oral Daily 42 Take 6 tabs(60mg)daily,decrease by 1 tab(10mg)every other day. 04/05/16 Past Home Medications Medication Directions Ordered Status Acetaminophen 500 Mg Tablet, 1000 Mg Oral Daily 03/01/16 Discontinued Acetaminophen 500 Mg Tablet, 1000 Mg Oral Twice A Day as needed for Pain Discontinued Albuterol Sulfate 6.7 Gm Hfa.aer.ad, 2 Puff Inhalation Daily as needed for Shortness Of Breath 03/01/16 Discontinued Calcium Carbonate/Vitamin D3 1 Each Tablet, 1 Tab Oral Twice A Day 03/01/16 Discontinued Glucosa [place] 2KCL/Chondroitin [place] 1 Each Capsule, 2 Cap Oral Daily 03/01/16 Discontinued Docusate Sodium 100 Mg Capsule, 100 Mg Oral Daily 03/01/16 Discontinued Fluticasone Propionate 16 Gm [place].susp, 2 Sprays Nasal Daily 03/01/16 Discontinued Guaifenesin 100 Mg/5 Ml Liquid, 5 Ml Oral Daily as needed for Congestion Discontinued Hydroxychloroquine Sulfate 200 Mg Tablet, 200 Mg Oral Twice A Day 03/01/16 Discontinued Multivitamin 1 Each Tablet, 1 Tab Oral Daily 03/01/16 Discontinued Warfarin Sodium 5 Mg Tablet, 5 Mg Oral Every Monday, Monday, Monday, Monday, And Monday03/01/16 Discontinued Doxycycline Monohydrate 100 Mg Capsule, 100 Mg Oral Twice A Day 04/01/16 Discontinued Warfarin Sodium 5 Mg Tablet, 2.5 Mg Oral Every Monday And 04/01/16 Discontinued Social History Social History Problem Response Recorded Date/Time Alcohol Use Denies Use 03/31/2016 6:52pm Recreational Drug Use No 03/31/2016 6:52pm Recent Foreign Travel No 03/31/2016 7:07pm Recent Infectious Disease Exposure No 03/31/2016 7:07pm Hospitalization with Isolation Denies 04/05/2016 4:08pm Smoking Status Former Smoker 03/31/2016 7:04pm Type Used Cigarettes 04/05/2016 4:08pm Recent Hopitalizations Yes 03/31/2016 6:52pm Hospitalization with Isolation Denies 04/05/2016 4:08pm Query Response Start Date Stop Date Smoking Status Former Smoker Hospital Discharge Instructions Patient Instructions Physician Instructions Patient Instructions/FollowUp: Dr Barba in [address] Espinosa in [address] Hoskins in 2 weeks Patient Problems: Severe COPD Hypoxia Aortic stenosis VIA [place], [place] DISCHARGE ORDERS Height (Feet): 5 Height (Inches): 3.00 Weight (Pounds): 176 Weight (Ounces): 4.0 Reason Pt Homebound weakness, severe COPD I Have Seen Pt Xvqi-[id number]-Bznm: Yes Date of Face to Face: Apr 05, 2016 Discharged To: Home Diagnosis/Conditions HH Order: Med administration Hypoxia monitoring New O2 *I certify that based on my findings, the following services are medically necessary Home Health Services: Services: Nursing Services, Telemetry Monitor-Evaluate & Treat, Physical Therapy-Evaluate & Treat My clinical findings support the need for the above services; see Diagnosis. Dicharge Diet: Cardiac Diet Daily Activity as Tolerated: Yes New, Converted, or Re-newed RX: Transmited to Pharmacy I certify that this patient is under my care and that I, a nurse practitioner or a physician; a assistant case manager working with me, had a face to face encounter that - meets the physician face to face encounter requirements with this patient as dated. Care Plan Patient Instructions:: Dr Barba in 1 weekDr Jesús in 1 weekDr Aidee in 2 weeks Patient Problems: Severe COPDHypoxiaAortic stenosis Plan of Care Discharge Date 04/05/16 3:40pm Disposition 01 HOME, SELF-CARE Instructions/Education Provided Chronic Obstructive Pulmonary Disease (COPD), Including Emphysema Prescriptions See Medication Section Follow-up Orders PT/INR Referrals Dr. Espinosa (Unspecified) - 2 Weeks Reason(s) for Referral: CAD (coronary artery disease) (Unspecified) - Series Order Reason(s) for Referral: RESPIRATORY FAILURE, UNSP, UNSP W HYPOXIA OR HYPERCAPNIA (Unspecified) - Today Reason(s) for Referral: LIMITATION OF ACTIVITIES DUE TO DISABILITY (Unspecified) - Reason(s) for Referral: FOLLOW UP WITH DR HOSKINS [phone] ON Monday04/26/16 AT 2:30 PM FOLLOW UP WITH DR ESPINOSA [phone] ON Monday04/14/16 AT 11 AM FOLLOW UP WITH DR JUAN [phone] ON Monday04/12/16 AT 9:30 AM Care Plan and Goals See Discharge Instructions Section Functional Status Query Response Date Recorded Patient Orientation Person Place Time Situation April 05, 2016 10:00am Patient Orientation Person Place Time Situation Eyes Open Normal For Age April 05, 2016 4:08pm Comprehension Ability Understands Concepts April 05, 2016 7:59am Allergies, Adverse Reactions, Alerts Allergen Type Severity Reaction Status Last Updated Penicillins ([id number]) Allergy Unknown Active 03/01/16 methotrexate ([id number]) Allergy Unknown Active 03/01/16 Cephalexin Allergy Unknown Active 03/01/16 ciprofloxacin ([id number]) Allergy Unknown Active 03/01/16 Immunizations No immunization records. Vital Signs Acute Vital Signs Vital Response Date/Time Temperature (Fahrenheit) 97.1 degrees F (97.6 - 99.5) 04/05/2016 4:03pm Temperature (Calculated Celsius) 36.21882 degrees C (36.4 - 37.5) 04/05/2016 12:30pm Temperature Source Tympanic 04/05/2016 4:03pm Pulse Rate (adult) 94 bpm (60 - 90) 04/05/2016 4:03pm Respiratory Rate 20 bpm (12 - 24) 04/05/2016 4:03pm O2 Sat by Pulse Oximetry 85 % (88 - 100) 04/05/2016 4:03pm Blood Pressure 110/70 mm Hg 04/05/2016 4:03pm Blood Pressure Mean 83 mm Hg 04/05/2016 12:30pm Pain Numeric Pain Scale 0-No Pain 04/05/2016 4:03pm Height (Feet) 5 feet 03/31/2016 7:11pm Height (Inches) 3.00 inches 03/31/2016 7:11pm Height (Calculated Centimeters) 160.924511 cm 03/31/2016 7:11pm Weight (Pounds) 176 pounds 04/05/2016 6:04am Weight (Ounces) 4.0 oz 04/05/2016 6:04am Weight (Calculated Grams) 23155.656 gm 04/05/2016 6:04am Weight (Calculated Kilograms) 79.228744 kilograms 04/05/2016 6:04am Calculated BMI 35.8 03/31/2016 7:11pm Results Pending Laboratory Results Test Name Collection Date/Time Pending Microbiology Results Procedure Source Collection Date/Time Procedures No known history of procedures. Encounters Encounter Location Arrival/Admit Date Discharge/Depart Date Attending Provider Discharged Inpatient [facility] 03/31/16 5:35pm 3:40pm BUCK ARMENDARIZ DO Registered Clinic [facility] 03/22/16 4:21pm AIDEE, NORIS M DO Registered Clinic [facility] 03/08/16 2:32pm MARCK ESPINOSA FACP CCDS FACC Recent Diagnosis CAD (coronary artery disease) CKD (chronic kidney disease), stage III Chronic obstructive asthma with exacerbation LIMITATION OF ACTIVITIES DUE TO DISABILITY RESPIRATORY FAILURE, UNSP, UNSP W HYPOXIA OR HYPERCAPNIA
--- NOTE | 2016-05-18 15:15 | Diagnostic Imaging Report ---
PROCEDURE: US Bilateral lower extremity arterial. TECHNIQUE: Multiple real-time grayscale images are obtained through both lower extremity arterial systems with color Doppler imaging and color Doppler spectral analysis. INDICATION: Bilateral lower extremity claudication. COMPARISON: None available. FINDINGS: Right side: The right common femoral and deep femoral arteries are widely patent with biphasic waveforms and normal peak systolic velocities. Right superficial femoral artery is patent with triphasic waveforms and peak systolic velocities of 72 cm/s in the proximal aspect. Popliteal artery is also widely patent with triphasic waveforms and a normal peak systolic velocity of 41 cm/s. Below the knee, the posterior tibialis artery is patent with triphasic waveforms and a peak systolic velocity of 75 cm/s. The dorsalis pedis is widely patent. No hemodynamically significant stenosis in the right lower extremity. Left side: The left common femoral, deep femoral, and superficial femoral arteries are patent with normal triphasic waveforms. Peak systolic velocities are also normal, with a maximal peak systolic velocity in the superficial femoral artery measuring 67 cm/s. Popliteal artery is patent with triphasic waveforms and peak systolic velocity of 62 cm/s. The dorsalis pedis and posterior tibialis arteries are patent with triphasic waveforms. No hemodynamically significant stenosis in the left lower extremity. IMPRESSION: 1. No hemodynamically significant stenosis or appreciable atherosclerotic plaque in the bilateral lower extremity arteries. Dictated by: Dictated on workstation # [id number]
== END ==
LOC: RAD 10:54
PROVIDERS: ATTEND Nurse Practitioner Family
DX: I25.10 Atherosclerotic heart disease of native coronary artery without angina pectoris (principal); I35.0 Nonrheumatic aortic (valve) stenosis; I65.23 Occlusion and stenosis of bilateral carotid arteries; I48.2 Chronic atrial fibrillation; I70.213 Atherosclerosis of native arteries of extremities with intermittent claudication, bilateral legs; I34.0 Nonrheumatic mitral (valve) insufficiency
CPT/HCPCS: 93925

== ENCOUNTER 2016-05-21 14:06 | Inpatient (IN) | payer OTHER ==
[~2016-05-21] VITALS: Ht 157.5 cm; Wt 89.8 kg
[~2016-05-21 14:06] MED LIST changes: -DIGO250T15 PO; -HYDR-3812 PO; -METO-272 PO; -VITAMIN D3 PO; -WARF2.5T PO; -WARF5TAB PO
--- OUTSIDE RECORDS SUMMARY | 2016-05-21 14:12 | XMS REPORT | Continuity of Care Document ---
Author Author [facility] Organization [facility] Address Unknown Phone Unavailable Care Team Providers Care Zoning Administrator Name Role Phone DREA BARBA DO PCP Insurance Providers Payer Name Policy Number Subscriber Name Relationship Veterans Choice [id number] Alessio Cordero 18 Self / Same As Patient Advance Directives Directive Response Recorded Date/Time Advance Directives Yes 03/31/16 6:50pm Health Care Power of Poultry Processor Yes 03/31/16 6:50pm Organ Donor No 03/31/16 [...] 5 Mg 5 Mg Oral Bedtime 03/01/16 [place] 3 Polyunsat Fatty Acids 1,000 Mg 1,000 [...] Mg 0.4 Mg Oral Bedtime 03/01/16 Tiotropium [place] 4 Gm 2 Puff Inhalation Daily 03/01/16 [...] Daily 03/01/16 Discontinued Fluticasone Propionate 16 Gm [place].susp, 2 Sprays Nasal Daily 03/01/16 Discontinued Guaifenesin [...] Problems: Severe COPD Hypoxia Aortic stenosis [place]IA [place], [place] DISCHARGE ORDERS Height (Feet): 5 Height (Inches): 3.00 Weight (Pounds): 176 Weight (Ounces): 4.0 Reason Pt Homebound weakness, severe COPD I Have Seen Pt [id number]: Yes Date of Face to Face: Apr 05, 2016 Discharged To: Home Diagnosis/Conditions HH Order: Med administration Hypoxia monitoring New O2 *I certify that based on my findings, the following services are medically necessary Home Health Services: Services: Nursing Services, Book Binder-Evaluate & Treat, Physical Therapy-Evaluate & Treat My clinical findings support the need for the above services; see Diagnosis. Dicharge Diet: Cardiac Diet Daily Activity as Tolerated: Yes New, Converted, or Re-newed RX: Transmited to Pharmacy I certify that this patient is under my care and that I, a nurse practitioner or a physician; a metal moulder's assistant working with me, had a face to [...] for Referral: FOLLOW UP WITH DR HOSKINS [phone] ON Monday04/26/16 AT 2:30 PM FOLLOW UP WITH DR ESPINOSA [phone] ON Monday04/14/16 AT 11 AM FOLLOW UP WITH DR JUAN [phone] ON Monday04/12/16 AT 9:30 AM Care Plan [...] Type Severity Reaction Status Last Updated Penicillins ([id number]) Allergy Unknown Active 03/01/16 methotrexate ([id number]) Allergy Unknown Active 03/01/16 Cephalexin Allergy Unknown Active 03/01/16 ciprofloxacin ([id number]) Allergy Unknown Active 03/01/16 Immunizations No immunization records. Vital Signs Acute Vital Signs Vital Response Date/Time Temperature (Fahrenheit) 97.1 degrees F (97.6 - 99.5) 04/05/2016 4:03pm Temperature (Calculated Celsius) 36.02994 degrees C (36.4 - 37.5) 04/05/2016 12:30pm [...] 3.00 inches 03/31/2016 7:11pm Height (Calculated Centimeters) 160.931072 cm 03/31/2016 7:11pm Weight (Pounds) 176 pounds 04/05/2016 6:04am Weight (Ounces) 4.0 oz 04/05/2016 6:04am Weight (Calculated Grams) 59795.656 gm 04/05/2016 6:04am Weight (Calculated Kilograms) 79.977692 kilograms 04/05/2016 6:04am Calculated BMI 35.8 03/31/2016 7:11pm Results Pending Laboratory Results Test Name Collection Date/Time Pending Microbiology Results Procedure Source Collection Date/Time Procedures No known history of procedures. Encounters Encounter Location Arrival/Admit Date Discharge/Depart Date Attending Provider Discharged Inpatient [facility] 03/31/16 5:35pm 3:40pm BUCK ARMENDARIZ DO Registered Clinic [facility] 03/22/16 4:21pm AIDEE, NORIS M DO Registered Clinic [facility] 03/08/16 2:32pm MARCK ESPINOSA FACP CCDS FACC Recent Diagnosis CAD (coronary artery disease) CKD (chronic kidney disease), stage III Chronic obstructive asthma with exacerbation LIMITATION OF ACTIVITIES DUE TO DISABILITY RESPIRATORY FAILURE, UNSP, UNSP W HYPOXIA OR HYPERCAPNIA
[2016-05-21] MEDS ORDERED: FUROSEMIDE 40 MG/4 ML INJ (LASIX) IVP ONE (14:15)
[2016-05-21 14:29] LABS: BASOPHILS % (AUTO) 0 % (0-10); EOSINOPHILS # (AUTO) 0.2 10^3/uL (0.0-0.3); EOSINOPHILS % (AUTO) 3 % (0-10); LYMPHOCYTES # (AUTO) 1.4 X 10^3 (1.0-4.0); LYMPHOCYTES % (AUTO) 19 % (12-44); MEAN CORPUSCULAR HEMOGLOBIN 33 PG (25-34); MEAN CORPUSCULAR HGB CONC 33 G/DL (32-36); MEAN CORPUSCULAR VOLUME 101 FL (80-99); MEAN PLATELET VOLUME 9.9 FL (7.4-10.4); MONOCYTES % (AUTO) 13 % (0-12); NEUTROPHILS # (AUTO) 4.7 X 10^3 (1.8-7.8); NEUTROPHILS % (AUTO) 65 % (42-75); PLATELET COUNT 235 10^3/uL (130-400); RED BLOOD COUNT 3.32 10^6/uL (4.35-5.85); RED CELL DISTRIBUTION WIDTH 13.3 % (10.0-14.5); WHITE BLOOD COUNT 7.3 10^3/uL (4.3-11.0)
--- NOTE | 2016-05-21 14:33 | ED Respiratory ---
General Chief Complaint: Respiratory Problems Stated Complaint: SOA Nursing Triage Note: ARRIVED VIA AMBULANCE FROM HOME. COMPLAINS OF INCREASED SOA FOR LAST COUPLE OF DAYS. PT HAS SOME ANXIETY DUE TO ANNIVERSARY OF SONS AND WIFES . Source: patient, EMS Exam Limitations: no limitations History of Present Illness Time seen by provider: 14:29 Initial Comments 75-year-old white male presents with history of increasing shortness of breath for the last several days. Patient has a history of COPD and congestive heart failure. Patient states that he has been using his inhalers at home as prescribed. He has noted that he is maintained approximately 5 pounds in the last week. The patient denies associated fever or chill, headache or stiff neck, nausea, vomiting, diarrhea or dysuria. Patient denies associated chest pain, palpitations, or hemoptysis. Allergies and Home Medications Allergies Coded Allergies: Penicillins (Verified Allergy, Unknown, 03/01/16) cephalexin (Verified Allergy, Unknown, 03/01/16) ciprofloxacin (Verified Allergy, Unknown, 03/01/16) methotrexate (Verified Allergy, Unknown, 03/01/16) Home Medications Acetaminophen 650 Mg Tablet.er 1,300 MG PO BID PRN PRN PAIN (Reported) TAKES 2 (650 MG) TABLETS Albuterol Sulfate 6.7 Gm Hfa.aer.ad 2 PUFF IH BID (Reported) Alendronate Sodium 70 Mg Tablet 70 MG PO [place] (Reported) LAST FILLED 11/05/15 #12 Ascorbate Calcium 500 Mg Tablet 500 MG PO DAILY (Reported) Aspirin 81 Mg Tablet.dr 81 MG PO HS (Reported) Atorvastatin Calcium 80 Mg Tablet 80 MG PO HS (Reported) LAST FILLED 11/05/15 #90 Budesonide/Formoterol Fumarate 10.2 Gm Hfa.aer.ad 2 PUFF IH BID (Reported) Calcium Carbonate/Vitamin D3 1 Each Tablet 1 TAB PO BID (Reported) Carvedilol 6.25 Mg Tablet 3.125 MG PO BID (Reported) TAKES 1/2 OF A (6.25 MG) TABLET Finasteride 5 Mg Tablet 5 MG PO HS (Reported) Folic Acid 1 Mg Tablet 1 MG PO DAILY (Reported) Furosemide 40 Mg Tablet 80 MG PO DAILY (Reported) TAKES 2 (40MG) TABLET Glucosamine/MSM/Chondroitin A 1 Each Tablet 2 TAB PO DAILY (Reported) Guaifenesin/Dextromethorphan 118 Ml Liquid 5 ML PO DAILY PRN PRN CONGESTION ( Reported) Leflunomide 20 Mg Tablet 20 MG PO BID (Reported) LAST FILLED 01/14/16 #110 Loratadine 10 Mg Tablet 10 MG PO DAILY (Reported) Multivit-Min/FA/Lycopene/Lut 1 Each Tablet 1 TAB PO DAILY (Reported) [place] 3 Polyunsat Fatty Acids 1,000 Mg Cap 1,000 MG PO DAILY (Reported) Prednisone 20 Mg Tab 20 MG PO DAILY (Reported) FILLED 03/30/16 #5 FOR A 5 DAY THERAPY Prednisone 10 Mg Tab.ds.pk #42 10 MG PO DAILY Take 6 tabs(60mg)daily,decrease by 1 tab(10mg)every other day. Prescribed by: BUCK ARMENDARIZ on 04/05/16 0926 Spironolactone 25 Mg Tablet 25 MG PO BID (Reported) Sulfasalazine 500 Mg Tablet 1,000 MG PO BID (Reported) LAST FILLED 11/05/15 #360 / TAKES 2 (500MG) TABLETS Tacrolimus 1 Mg Capsule 1 MG PO HS (Reported) Tamsulosin HCl 0.4 Mg Cap 0.4 MG PO HS (Reported) Tiotropium [place] 4 Gm Mist.inhal 2 PUFF IH DAILY (Reported) Ubidecarenone/Vit E Acetate 1 Each Capsule 100 MG PO DAILY (Reported) Vitamin B Complex 1 Each Capsule 1 CAP PO DAILY (Reported) Constitutional: No chills, No diaphoresis, No fever EENTM: No vision loss Respiratory: No cough, dyspnea on exertionNo hemoptysis, short of breathNo wheezing Cardiovascular: No chest pain, No palpitations Gastrointestinal: No abdominal pain, diarrhea vomiting Genitourinary: No dysuria, No frequency Musculoskeletal: No back pain Skin: No rash Psychiatric/Neurological: Anxiety Depressed Emotional Problems (patient is having a difficult time currently as this is the anniversary of his and sons .) Hematologic/Lymphatic: No Symptoms Reported Immunological/Allergic: no symptoms reported Past Mfdouif-Spfvhv-Kbbfct Hx Patient Social History Type Used: Cigarettes Recent Foreign Travel: No Contact w/Someone Who Travel: No Recent Infectious Disease Expo: No Recent Hopitalizations: Yes Immunizations Up To Date Date of Pneumonia Vaccine: Mar 01, 2015 Date of Influenza Vaccine: Dec 01, 2015 Seasonal Allergies Seasonal Allergies: No Surgeries HX Surgeries: Yes Respiratory Hx Respiratory Disorders: Yes Respiratory Disorders: Asthma, COPD Cardiovascular Hx Cardiac Disorders: Yes Cardiac Disorders: High Cholesterol, Hypertension, Valvular Heart Disease Neurological Hx Neurological Disorders: No Reproductive System Hx Reproductive Disorders: No Genitourinary Hx Genitourinary Disorders: No Gastrointestinal Hx Gastrointestinal Disorders: No Gastrointestinal Disorders: Gastroesophageal Reflux, Chronic Constipation Musculoskeletal Hx Musculoskeletal Disorders: Yes Musculoskeletal Disorders: Arthritis Endocrine Hx Endocrine Disorders: No HEENT HEENT Disorders: Cataract Loss of Vision: Bilateral Hearing Impairment: Bilateral Hearing Aide Cancer Hx Cancer: No Cancer: Kidney Psychosocial Hx Psychiatric Problems: No Behavioral Health Disorders: Depression Integumentary HX Skin/Integumentary Disorder: No Blood Transfusions Hx Blood Disorders: No Adverse Reaction to a Blood Tr: No Reviewed Nursing Assessment Reviewed/Agree w Nursing PMH: Yes Family Medical History Family Medial History: Patient reports no known family medical history. Physical Exam Vital Signs Vital Sign - Last 12Hours 05/21/16 05/21/16 14:07 15:03 Temp 97.8 Pulse 116 Resp 18 B/P 108/92 Pulse Ox 97 O2 Delivery Nasal Cannula O2 Flow Rate 3.00 Capillary Refill : Less Than 3 Seconds General Appearance: moderate distress Eyes: Bilateral Eye Normal Inspection HEENT: normal ENT inspection Neck: full range of motion normal inspection Respiratory: decreased breath sounds Cardiovascular: irregularly irregular Gastrointestinal: normal bowel sounds non tender soft Extremities: normal range of motion non-tender Neurologic/Psychiatric: no motor/sensory deficits Skin: normal color warm/dry Progress/Results/Core Measures Results/Orders Lab Results Laboratory Tests Test 05/21/16 14:10 Range/Units Activated Partial Thromboplast Time 60 H 24-35 SEC Alanine Aminotransferase (ALT/SGPT) 18 0-55 U/L Albumin 3.6 3.2-4.5 G/DL Alkaline Phosphatase 49 40-136 U/L Anion Gap 10 5-14 MMOL/L Aspartate Amino Transf (AST/SGOT) 26 5-34 U/L B-Type Natriuretic Peptide 287.7 H <100.0 PG/ML BUN/Creatinine Ratio 18 Basophils # (Auto) 0.0 0.0-0.1 10^3/uL Basophils (%) (Auto) 0 0-10 % Blood Urea Nitrogen 22 H 7-18 MG/DL Calcium Level 8.9 8.5-10.1 MG/DL Carbon Dioxide Level 27 21-32 MMOL/L Chloride Level 100 98-107 MMOL/L Creatinine 1.22 0.60-1.30 MG/DL D-Dimer 0.83 H 0.00-0.49 UG/ML Eosinophils # (Auto) 0.2 0.0-0.3 10^3/uL Eosinophils (%) (Auto) 3 0-10 % Estimat Glomerular Filtration Rate 58 Glucose Level 111 H 70-105 MG/DL Hematocrit 34 L 40-54 % Hemoglobin 10.9 L 13.3-17.7 G/DL INR Comment 2.7 H 0.8-1.4 Lymphocytes # (Auto) 1.4 1.0-4.0 X 10^3 Lymphocytes (%) (Auto) 19 12-44 % Magnesium Level 2.1 1.8-2.4 MG/DL Mean Corpuscular Hemoglobin 33 25-34 PG Mean Corpuscular Hemoglobin Concent 33 32-36 G/DL Mean Corpuscular Volume 101 H 80-99 FL Mean Platelet Volume 9.9 7.4-10.4 FL Monocytes # (Auto) 1.0 0.0-1.0 X 10^3 Monocytes (%) (Auto) 13 H 0-12 % Myoglobin 62.2 10.0-92.0 NG/ML Neutrophils # (Auto) 4.7 1.8-7.8 X 10^3 Neutrophils (%) (Auto) 65 42-75 % Platelet Count 235 130-400 10^3/uL Potassium Level 3.9 3.6-5.0 MMOL/L Prothrombin Time 28.3 H 12.2-14.7 SEC Red Blood Count 3.32 L 4.35-5.85 10^6/uL Red Cell Distribution Width 13.3 10.0-14.5 % Sodium Level 137 135-145 MMOL/L Total Bilirubin 0.4 0.1-1.0 MG/DL Total Protein 6.5 6.4-8.2 G/DL Troponin I < 0.30 <0.30 NG/ML White Blood Count 7.3 4.3-11.0 10^3/uL My Orders Orders-BARBIE RICHARD MD Furosemide Injection (Lasix Injection) (05/21/16 14:15) Cbc With Automated Diff (05/21/16 14:15) Magnesium (05/21/16 14:15) Chest 1 View, Ap/Pa Only (05/21/16 14:15) Ekg Tracing (05/21/16 14:15) Cardiac Profile 1 (05/21/16 14:15) Comprehensive Metabolic Panel (05/21/16 14:15) Myoglobin Serum (05/21/16 14:15) Protime With Inr (05/21/16 14:15) Partial Thromboplastin Time (05/21/16 14:15) O2 (05/21/16 14:15) Monitor-Rhythm Ecg Trace Only (05/21/16 14:15) Lipid Panel (05/22/16 06:00) Saline Lock/Iv-Start (05/21/16 14:15) BNP (05/21/16 14:15) Fibrin Degradation Products (05/21/16 14:15) Albuterol/Ipra Inhalation Soln (Duoneb I (05/21/16 15:00) Svn Sm Volume Nebulizer Rt-Rfs (05/21/16 14:57) Medications Given in ED Current Medications Medications Dose Ordered Sig/Lazaro Route Start Time Stop Time Status Last Admin Dose Admin Albuterol/ Ipratropium 3 ml ONCE ONCE INH 05/21/16 15:00 05/21/16 15:01 DC 05/21/16 15:02 3 ML Furosemide 40 mg ONCE ONCE IVP 05/21/16 14:15 05/21/16 14:16 DC 05/21/16 14:22 40 MG Vital Signs/I&O Vital Sign - Last 12Hours 05/21/16 05/21/16 14:07 15:03 Temp 97.8 Pulse 116 Resp 18 B/P 108/92 Pulse Ox 97 99 O2 Delivery Nasal Cannula O2 Flow Rate 3.00 Blood Pressure Mean: 97 Progress Note : Time: 15:15 Progress Note The patient's chest x-ray was consistent with progressive CHF. The patient's d- dimer was minimally elevated. He has BNP was moderately elevated below 500. His troponin is pending Patient was given 40 mg of Lasix IV. A DuoNeb treatment was given. Telephone consultation was undertaken with Dr. Martins who was kind enough to admit the patient Departure Communication Time/Spoke to Admitting Phy: 15:[address] Martins. Impression Impression: Primary Impression: CHF (congestive heart failure) Qualified Code: I50.41 - Acute combined systolic (congestive) and diastolic ( congestive) heart failure Disposition: 09 ADMITTED INPATIENT Condition: Improved Decision to Admit Reason: Admit from ER (General) Decision to Admit/Date: May 21, 2016 Time/Decision to Admit Time: 15:21 Departure-Patient Inst. Referrals: DREA LAW DO (PCP/Family) Primary Care Physician BARBIE RICHARD MD May 21, 2016 14:33
--- NOTE | 2016-05-21 14:36 | Diagnostic Imaging Report ---
INDICATION: Shortness of breath. COMPARISON: 03/31/2016. FINDINGS: Upright portable view of the chest is obtained. Heart size is enlarged and appears slightly more prominent than on the prior study. There is mild central venous congestion. There is some patchy perihilar opacity bilaterally suggestive of mild edema. Mild interstitial changes are increased from the prior exam. Findings more pronounced on the right. No pleural fluid is suspected. IMPRESSION: Increasing cardiomegaly with central venous congestion and suggestive of bilateral perihilar edema and interstitial change. Findings are suggestive of congestive failure. Findings are somewhat asymmetrically prominent on the right and could be related to pneumonia as well. Short-term followup study is recommended. Dictated by: Dictated on workstation # [id number]
[2016-05-21 14:40] LABS: INR 2.7 (0.8-1.4); PROTHROMBIN TIME PATIENT 28.3 SEC (12.2-14.7)
[2016-05-21 14:51] LABS: ALANINE AMINOTRANSFERASE 18 U/L (0-55); ALBUMIN 3.6 G/DL (3.2-4.5); ANION GAP 10 MMOL/L (5-14); ASPARTATE AMINO TRANSFERASE 26 U/L (5-34); BILIRUBIN,TOTAL 0.4 MG/DL (0.1-1.0); BLOOD UREA NITROGEN 22 MG/DL (7-18); BUN/CREATININE RATIO 18; CALCIUM 8.9 MG/DL (8.5-10.1); CARBON DIOXIDE 27 MMOL/L (21-32); CHLORIDE 100 MMOL/L (98-107); CREATININE SERUM 1.22 MG/DL (0.60-1.30); GFR ESTIMATED 58; GLUCOSE 111 MG/DL (70-105); MAGNESIUM 2.1 MG/DL (1.8-2.4); POTASSIUM 3.9 MMOL/L (3.6-5.0); SODIUM 137 MMOL/L (135-145); TOTAL PROTEIN 6.5 G/DL (6.4-8.2)
[2016-05-21 14:58] LABS: MYOGLOBIN SERUM 62.2 NG/ML (10.0-92.0)
[2016-05-21] MEDS ORDERED: RT-ALBUTEROL/IPRATROPIUM 3 ML (DUONEB) VIAL INH ONE (15:00)
[2016-05-21 16:00] VITALS: BP 118/66
[2016-05-21] MEDS ORDERED: CATHETER FLUSH 10 ML SYR IV PRN (16:45)
[2016-05-21] MEDS: KCL 20 MEQ TAB (K-DUR) PO SCH ×2 (16:47→20:05)
[2016-05-21] MEDS ORDERED: WARF2.5T PO (18:19)
[2016-05-21] MEDS ORDERED: WARF5TAB PO (18:19)
[2016-05-21] MEDS: FUROSEMIDE 40 MG/4 ML INJ (LASIX) IV SCH (18:55)
[2016-05-21 20:05] VITALS: BP 105/52
[2016-05-22] VITALS: BP 111/65
[2016-05-22 04:43] LABS: BASOPHILS % (AUTO) 0 % (0-10); EOSINOPHILS # (AUTO) 0.2 10^3/uL (0.0-0.3); EOSINOPHILS % (AUTO) 3 % (0-10); LYMPHOCYTES # (AUTO) 1.6 X 10^3 (1.0-4.0); LYMPHOCYTES % (AUTO) 18 % (12-44); MEAN CORPUSCULAR HEMOGLOBIN 32 PG (25-34); MEAN CORPUSCULAR HGB CONC 32 G/DL (32-36); MEAN CORPUSCULAR VOLUME 100 FL (80-99); MEAN PLATELET VOLUME 10.1 FL (7.4-10.4); MONOCYTES # (AUTO) 1.1 X 10^3 (0.0-1.0); MONOCYTES % (AUTO) 13 % (0-12); NEUTROPHILS # (AUTO) 5.6 X 10^3 (1.8-7.8); NEUTROPHILS % (AUTO) 66 % (42-75); PLATELET COUNT 253 10^3/uL (130-400); RED BLOOD COUNT 3.36 10^6/uL (4.35-5.85); RED CELL DISTRIBUTION WIDTH 13.3 % (10.0-14.5); WHITE BLOOD COUNT 8.5 10^3/uL (4.3-11.0)
[2016-05-22 04:51] VITALS: BP 106/61
[2016-05-22 05:22] LABS: ALANINE AMINOTRANSFERASE 15 U/L (0-55); ALBUMIN 3.6 G/DL (3.2-4.5); ANION GAP 12 MMOL/L (5-14); ASPARTATE AMINO TRANSFERASE 23 U/L (5-34); BILIRUBIN,TOTAL 0.6 MG/DL (0.1-1.0); BLOOD UREA NITROGEN 20 MG/DL (7-18); BUN/CREATININE RATIO 22; CALCIUM 8.7 MG/DL (8.5-10.1); CARBON DIOXIDE 24 MMOL/L (21-32); CHLORIDE 98 MMOL/L (98-107); CREATININE SERUM 0.93 MG/DL (0.60-1.30); GFR ESTIMATED > 60; GLUCOSE 104 MG/DL (70-105); SODIUM 134 MMOL/L (135-145); TOTAL PROTEIN 6.5 G/DL (6.4-8.2)
[2016-05-22 05:40] LABS: CHOLESTEROL 137 MG/DL (< 200); DIRECT LDL 59 MG/DL (1-129); TRIGLYCERIDES 55 MG/DL (<150); VLDL CHOLESTEROL 11 MG/DL (5-40)
[2016-05-22] MEDS: CATHETER FLUSH 10 ML SYR IV SCH ×3 (06:30→21:04)
[2016-05-22] MEDS: FUROSEMIDE 40 MG/4 ML INJ (LASIX) IV SCH ×2 (06:30→18:13)
[2016-05-22] MEDS: KCL 20 MEQ TAB (K-DUR) PO SCH ×2 (08:02→21:00)
[2016-05-22 08:30] VITALS: BP 123/72
[2016-05-22] MEDS ORDERED: FUROSEMIDE 40 MG (LASIX) TAB PO SCH (10:30)
[2016-05-22 11:43] VITALS: BP 109/61
[2016-05-22] MEDS: OMEGA 3 (FISH OIL) 1000 MG CAP PO SCH (11:58)
[2016-05-22] MEDS: sulfaSALAzine 500 MG (AZULFIDINE) TAB PO SCH ×2 (11:58→21:00)
[2016-05-22] MEDS: CARVEDILOL 6.25 MG (COREG) TAB PO SCH ×2 (11:58→21:00)
[2016-05-22] MEDS: LORATADINE (CLARITIN) 10 MG TAB PO SCH (11:58)
[2016-05-22] MEDS: SPIRONOLACTONE 25 MG (ALDACTONE) TAB PO SCH ×2 (11:59→21:00)
[2016-05-22] MEDS: FOLIC ACID 1 MG TAB PO SCH (11:59)
--- NOTE | 2016-05-22 12:28 | History & Physical-Hospitalist ---
HPI History of Present Illness: HPI/Chief Complaint The patient is a 75-year-old white male previously admitted here in March. He presented to the emergency room yesterday with a chief complaint of increasing shortness of breath and a 5 pound weight gain. He has had previous history of congestive heart failure and was admitted here in March for the same. He is seen by cardiology with MARCK Velasco. He reports that he has a valve in critical need of replacement. [facility] not [facility] at this [facility]. He also reports that he has inflammatory arthritis. He has been taking tacrolimus for this for 2 years. He apparently had problems with methotrexate prior to that. At this time he also reports decreased ability to ambulate because of dyspnea and also orthopnea. He is known from an echocardiogram in February 2016 to have severe aortic stenosis with a calculated valvular area of oh 0.9 cm, moderately severe to severe mitral regurgitation, pulmonary hypertension with estimated PAP at 50-55 mmHg, and an ejection fraction of 50 percent Source: patient Exam Limitations: no limitations Date Seen 05/22/16 Attending Physician Beck Esteves MD PCP Wayne Barba DO Referring Physician Date of Admission May 21, 2016 at 15:00 Home Medications & Allergies Home Medications Reviewed patient Home Medication Reconciliation Form Allergies Coded Allergies: Penicillins (Verified Allergy, Unknown, 03/01/16) cephalexin (Verified Allergy, Unknown, 03/01/16) ciprofloxacin (Verified Allergy, Unknown, 03/01/16) methotrexate (Verified Allergy, Unknown, 03/01/16) Past Jbkocoy-Kadpne-Zywocf Hx Patient Social History Alcohol Use: Denies Use Recreational Drug Use: No Type Used: Cigarettes Physical Abuse Screen: No Sexual Abuse: No Recent Foreign Travel: No Contact w/other who traveled: No Recent Hopitalizations: Yes Recent Infectious Disease Expo: No Immunizations Up To Date Date of Pneumonia Vaccine: Mar 01, 2015 Date of Influenza Vaccine: Dec 01, 2015 Seasonal Allergies Seasonal Allergies: No Surgeries HX Surgeries: Yes Respiratory Hx Respiratory Disorders: Yes Respiratory Disorders: COPD, Pneumonia Cardiovascular Hx Cardiovascular Disorders: Yes Cardiac Disorders: Atrial Fibrillation, High Cholesterol, Hypertension, Valvular Heart Disease Neurological Hx Neurological Disorders: No Reproductive System Hx Reproductive Disorders: No Genitourinary Hx Genitourinary Disorders: No Gastrointestinal Hx Gastrointestinal Disorders: No Gastrointestinal Disorders: Gastroesophageal Reflux, Chronic Constipation Musculoskeletal Hx Musculoskeletal Disorders: Yes Musculoskeletal Disorders: Arthritis Endocrine Hx Endocrine Disorders: No HEENT HEENT Disorders: Cataract Loss of Vision: Bilateral Hearing Impairment: Bilateral Hearing Aide Cancer Hx Cancer: No Cancer: Kidney Psychosocial Hx Psychiatric Problems: No Behavioral Health Disorders: Depression Integumentary HX Skin/Integumentary Disorder: No Blood Transfusions Hx Blood Disorders: No Adverse Reaction to a Blood Tr: No Reviewed Nursing Assessment Reviewed/Agree w Nursing PMH: Yes Family Medical History Family Hx: Patient reports no known family medical history. Review of Systems Constitutional: see HPI Respiratory: cough dyspnea on exertion short of breath Cardiovascular: other (valvular heart disease) Gastrointestinal: no symptoms reported Genitourinary: frequency nocturia Musculoskeletal: no symptoms reported Skin: no symptoms reported Psychiatric/Neurological: No Symptoms Reported Physical Exam Physical Exam Vital Signs Vital Sign - Last 12Hours 05/21/16 14:07 Temp 97.8 Pulse 116 Resp 18 B/P 108/92 Pulse Ox 97 O2 Delivery Nasal Cannula O2 Flow Rate 3 Capillary Refill : Less Than 3 SecondsLess Than 3 Seconds General Appearance: No Apparent Distress WD/WN HEENT: Normal ENT Inspection Neck: Full Range of Motion Normal Inspection Non Tender Supple JVD (none) Respiratory: Decreased Breath Sounds (the breath sounds are quite distant. There is increased AP diameter of the chest.) Cardiovascular: Regular Rate, Rhythm No Edema No Gallop No JVD No Murmur Normal Peripheral Pulses Gastrointestinal: Normal Bowel Sounds No Organomegaly No Pulsatile Mass Non Tender Soft Extremity: Normal Capillary Refill Normal Inspection Normal Range of Motion Non Tender No Calf Tenderness No Pedal Edema Neurologic/Psychiatric: Alert Oriented x3 No Motor/Sensory Deficits Normal Mood/Affect Skin: Normal Color Warm/Dry Lymphatic: No Adenopathy Results Results/Procedures Lab Laboratory Tests 05/21/16 14:10 05/22/16 04:10 Assessment/Plan Admission Diagnosis 1.pulmonary edema. 2.valvular heart disease with severe aortic stenosis and moderately severe mitral regurgitation. 3.secondary pulmonary artery hypertension with pressures rated at 50-55 mmHg. 4.COPD. 5.inflammatory arthritis Assessment and Plan 1.consult MARCK Velasco for further adjustments. 2.repeat electrolytes Clinical Quality Measures DVT/VTE Risk/Contraindication: Risk Factor Score Per Nursin RFS Level Per Nursing on Admit: 4+=Very High BECK ESTEVES MD May 22, 2016 12:28
--- NOTE | 2016-05-22 12:52 | Consultation-Cardiology ---
HPI-Cardiology Cardiology Consultation: Date of Consultation 05/22/16 Date of Admission 05/21/16 Attending Physician Sheldon Martins MD Admitting Physician Wayne Barba DO Consulting Physician MARCK BACH MD, FACP, FACC, FSCAI, CCDS HPI: Chief Complaint: Malaise, weakness and shortness of breath 75 yo man with increasing malaise, weakness and shortness of breath for several days Denies cp or palp or syncope Has chronic intermittent leg swelling Denies recent fever or chills Review of Systems-Cardiology Review of Systems Constitutional: malaise tirednessNo weight loss, No weight gain Eyes: No vision change Ears/Nose/Throat: No epistaxis, No nasal drainage, No recent hearing loss Respiratory: As described under HPI Cardiovascular: As described under HPI Gastrointestinal: No constipation, No diarrhea, No vomiting Genitourinary: No dysuria, No urine frequency changes Musculoskeletal: back pain (chronic) joint pain (chronic) Skin: No rash, No ulcerations Psychiatric/Neurological: No focal weakness, No syncope Hematologic: No bleeding abnormalities [id number] Hx Patient Social History Alcohol Use: Denies Use Recreational Drug Use: No Type Used: Cigarettes Recent Foreign Travel: No Recent Infectious Disease Expo: No Physical Abuse Screen: No Sexual Abuse: No Immunizations Up To Date Date of Pneumonia Vaccine: Mar 01, 2015 Date of Influenza Vaccine: Dec 01, 2015 Past Medical History PMH As described under Assessment. Family Medical History Family History: Patient reports no known family medical history. Allergies and Home Medications Allergies Coded Allergies: Penicillins (Verified Allergy, Unknown, 03/01/16) cephalexin (Verified Allergy, Unknown, 03/01/16) ciprofloxacin (Verified Allergy, Unknown, 03/01/16) methotrexate (Verified Allergy, Unknown, 03/01/16) Home Medications Acetaminophen 650 Mg Tablet.er 1,300 MG PO BID PRN PRN PAIN (Reported) TAKES 2 (650 MG) TABLETS Albuterol Sulfate 6.7 Gm Hfa.aer.ad 2 PUFF IH BID (Reported) Alendronate Sodium 70 Mg Tablet 70 MG PO [place] (Reported) LAST FILLED 11/05/15 #12 Ascorbate Calcium 500 Mg Tablet 500 MG PO DAILY (Reported) Aspirin 81 Mg Tablet.dr 81 MG PO HS (Reported) Atorvastatin Calcium 80 Mg Tablet 80 MG PO HS (Reported) LAST FILLED 08/18/16 #90 Budesonide/Formoterol Fumarate 10.2 Gm Hfa.aer.ad 2 PUFF IH BID (Reported) Calcium Carbonate/Vitamin D3 1 Each Tablet 1 TAB PO BID (Reported) Carvedilol 6.25 Mg Tablet 3.125 MG PO BID (Reported) TAKES 1/2 OF A (6.25 MG) TABLET Finasteride 5 Mg Tablet 5 MG PO HS (Reported) Folic Acid 1 Mg Tablet 1 MG PO DAILY (Reported) Furosemide 40 Mg Tablet 80 MG PO DAILY (Reported) TAKES 2 (40MG) TABLET Glucosamine/MSM/Chondroitin A 1 Each Tablet 2 TAB PO DAILY (Reported) Guaifenesin/Dextromethorphan 118 Ml Liquid 5 ML PO DAILY PRN PRN CONGESTION ( Reported) Leflunomide 20 Mg Tablet 20 MG PO BID (Reported) LAST FILLED 01/14/16 #110 Loratadine 10 Mg Tablet 10 MG PO DAILY (Reported) Multivit-Min/FA/Lycopene/Lut 1 Each Tablet 1 TAB PO DAILY (Reported) [place] 3 Polyunsat Fatty Acids 1,000 Mg Cap 1,000 MG PO DAILY (Reported) Spironolactone 25 Mg Tablet 25 MG PO BID (Reported) Sulfasalazine 500 Mg Tablet 1,000 MG PO BID (Reported) LAST FILLED 11/05/15 #360 / TAKES 2 (500MG) TABLETS Tacrolimus 1 Mg Capsule 1 MG PO HS (Reported) Tamsulosin HCl 0.4 Mg Cap 0.4 MG PO HS (Reported) Tiotropium [place] 4 Gm Mist.inhal 2 PUFF IH DAILY (Reported) Ubidecarenone/Vit E Acetate 1 Each Capsule 100 MG PO DAILY (Reported) Vitamin B Complex 1 Each Capsule 1 CAP PO DAILY (Reported) Warfarin Sodium 5 Mg Tablet 5 MG PO UD (Reported) TAKES ON MON, , MON, MON, MON Warfarin Sodium 2.5 Mg Tablet 2.5 MG PO UD (Reported) TAKES ON MONDAY AND MONDAY Physical Exam-Cardiology Physical Exam Vital Signs/I&O Vital Sign - Last 12Hours 05/22/16 05/22/16 05/22/16 05/22/16 01:00 04:51 08:11 08:16 Temp 98.2 Pulse 115 113 Resp 18 B/P 106/61 Pulse Ox 98 O2 Delivery Nasal Cannula Nasal Cannula O2 Flow Rate 3.00 3.00 2.50 05/22/16 05/22/16 08:30 11:43 Temp 97.9 97.9 Pulse 106 109 Resp 18 18 B/P 123/72 109/61 Pulse Ox 96 98 O2 Delivery Nasal Cannula Nasal Cannula O2 Flow Rate 3.00 3.00 Intake and Output 05/22/16 00:00 Intake Total 690 ml Output Total 1410 ml Balance -720 ml Capillary Refill : Less Than 3 SecondsLess Than 3 Seconds Constitutional: AAO x 3 well-developed well-nourished HEENT: EOMI hearing is well preservedNo xanthelasmas are seen Neck: carotid pulses are 2 + bilaterally with good upstrokes Respiratory: No accessory muscle use, other (fair bilateral air entry, diminished air entry at the bases, basal coarse and fine crackles) Cardiovascular: irregularly irregular S1 and S2 systolic murmur (2/6 MSM at card apex and base) Gastrointestinal: No tender, softNo guarding, No rebound, audible bowel sounds Extremities: swelling (mild bilateral pitting edema of the legs)No clubbing, No cyanosis Neurologic/Psychiatric: grossly intact power is 5/5 both on sides Skin: No rash on exposed areas, No ulcerations on exposed areas Data Review Labs Laboratory Tests 05/21/16 14:10: Activated Partial Thromboplast Time 60H, Alanine Aminotransferase (ALT/SGPT) 18 , Albumin 3.6, Alkaline Phosphatase 49, Anion Gap 10, Aspartate Amino Transf ( AST/SGOT) 26, B-Type Natriuretic Peptide 287.7H, BUN/Creatinine Ratio 18, Basophils # (Auto) 0.0, Basophils (%) (Auto) 0, Blood Urea Nitrogen 22H, Calcium Level 8.9, Carbon Dioxide Level 27, Chloride Level 100, Creatinine 1.22 , D-Dimer 0.83H, Eosinophils # (Auto) 0.2, Eosinophils (%) (Auto) 3, Estimat Glomerular Filtration Rate 58, Glucose Level 111H, Hematocrit 34L, Hemoglobin 10.9L, INR Comment 2.7H, Lymphocytes # (Auto) 1.4, Lymphocytes (%) (Auto) 19, Magnesium Level 2.1, Mean Corpuscular Hemoglobin 33, Mean Corpuscular Hemoglobin Concent 33, Mean Corpuscular Volume 101H, Mean Platelet Volume 9.9, Monocytes # (Auto) 1.0, Monocytes (%) (Auto) 13H, Myoglobin 62.2, Neutrophils # (Auto) 4.7, Neutrophils (%) (Auto) 65, Platelet Count 235, Potassium Level 3.9, Prothrombin Time 28.3H, Red Blood Count 3.32L, Red Cell Distribution Width 13.3 , Sodium Level 137, Total Bilirubin 0.4, Total Protein 6.5, Troponin I < 0.30, White Blood Count 7.3 05/22/16 04:10: Alanine Aminotransferase (ALT/SGPT) 15, Albumin 3.6, Alkaline Phosphatase 52, Anion Gap 12, Aspartate Amino Transf (AST/SGOT) 23, BUN/Creatinine Ratio 22, Basophils # (Auto) 0.0, Basophils (%) (Auto) 0, Blood Urea Nitrogen 20H, Calcium Level 8.7, Carbon Dioxide Level 24, Chloride Level 98, Creatinine 0.93, Eosinophils # (Auto) 0.2, Eosinophils (%) (Auto) 3, Estimat Glomerular Filtration Rate > 60, Glucose Level 104, Hematocrit 34L, Hemoglobin 10.8L, Lymphocytes # (Auto) 1.6, Lymphocytes (%) (Auto) 18, Mean Corpuscular Hemoglobin 32, Mean Corpuscular Hemoglobin Concent 32, Mean Corpuscular Volume 100H, Mean Platelet Volume 10.1, Monocytes # (Auto) 1.1H, Monocytes (%) (Auto) 13H, Neutrophils # (Auto) 5.6, Neutrophils (%) (Auto) 66, Platelet Count 253, Potassium Level 4.0, Red Blood Count 3.36L, Red Cell Distribution Width 13.3, Sodium Level 134L, Total Bilirubin 0.6, Total Protein 6.5, White Blood Count 8.5 , Cholesterol Level 137, HDL Cholesterol 54, LDL Cholesterol Direct 59, Triglycerides Level 55, VLDL Cholesterol 11 Laboratory Tests 05/21/16 14:10 05/22/16 04:10 A/P-Cardiology Assessment/Admission Diagnosis Multifactorial shortness of breath (see below) Shortness of breath due to acute on chronic CHF due to valvular heart disease ( as described under cath summary) Card cath of 03/01/16: moderately severe mitral regurg, mod aortic stenosis ( valve area 1.1 sq cm), 70% prox stenosis of RCA, LVEF 50%, elevated LVEDP, pulmonary hypertension with mean PA pressure 42 mmHg and pulmonary vascular resistance 4 Wood units Chronic a fib with an average vent response of 92 bpm on Holter of 02/17/16 Obesity with BMI approx 37 and with obesity-hypoventilation syndrome H/o COPD Chronic warfarin anticoag, [facility] at [facility]: mild LVH, biatrial enlargement, LVEF 45-50%, mod (mean gradient 18, valve area 0.8 sq cm), mild to mod AI, mod MR, PASP could not be calculated. Echo 02/18/16 at [facility], [place], [place]: moderately severe to severe MR, severe aortic stenosis with valve area approx 0.9 sq cm, PASP 50-55 mmHg, LVEF appox 50%, mild LVH Quit tobacco use in 1971 Leg tiredness/claudication, segmental pressures of March 2016 inconclusive, u/ s of 05/18/16 did not show any evidence of hemodynamically significant obstructive arterial disease involving the leg arteries Mild carotid arterial disease per u/s of March 18, 2016 CKD stage 2 No evidence of AAA per u/s of 03-18-16 Discussion and Recomendations * Complex management due to multiple comorbidities * Treat with iv furosemide for now and monitor labs * He is [facility] * I spoke with him in detail and answered questions * Sleep apnea eval is recommended as an outpatient Clinical Quality Measures DVT/VTE Risk/Contraindication: Risk Factor Score Per Nursin RFS Level Per Nursing on Admit: 4+=Very High MARCK BACH MD FACP FAC CCDS May 22, 2016 12:52
[2016-05-22] MEDS ORDERED: meTOproloL SUCCINATE 50 MG (TOPROL XL) TAB PO SCH (13:15)
[2016-05-22] MEDS: RT-ALBUTEROL SULF 2.5 MG/3 ML PRE-MIX VIAL INH SCH ×2 (14:26→19:05)
[2016-05-22] MEDS: RT-ADVAIR HFA 115/21 MCG PER PUFF IH SCH ×2 (14:27→19:05)
[2016-05-22 16:00] VITALS: BP 102/70
[2016-05-22] MEDS ORDERED: warFARin 2.5 MG (COUMADIN) TAB PO SCH (18:00)
[2016-05-22] MEDS: ALFUZOSIN HCL 10 MG TAB (UROXATRAL) PO SCH (18:13)
[2016-05-22 20:02] VITALS: BP 108/68
[2016-05-22] MEDS: ATORVASTATIN 80 MG (LIPITOR) TABLET PO SCH (21:00)
[2016-05-22] MEDS: ASPIRIN E.C. 81 MG (ECOTRIN) TAB PO SCH (21:00)
[2016-05-22] MEDS: TACROLIMUS 1 MG (PROGRAF) CAP NON-FORMULARY PO SCH (21:01)
[2016-05-23] VITALS: BP 105/68
[2016-05-23 04:00] VITALS: BP 90/61
[2016-05-23 05:18] LABS: BASOPHILS % (AUTO) 0 % (0-10); EOSINOPHILS # (AUTO) 0.2 10^3/uL (0.0-0.3); EOSINOPHILS % (AUTO) 2 % (0-10); LYMPHOCYTES # (AUTO) 1.4 X 10^3 (1.0-4.0); LYMPHOCYTES % (AUTO) 16 % (12-44); MEAN CORPUSCULAR HEMOGLOBIN 33 PG (25-34); MEAN CORPUSCULAR HGB CONC 33 G/DL (32-36); MEAN CORPUSCULAR VOLUME 99 FL (80-99); MEAN PLATELET VOLUME 10.2 FL (7.4-10.4); MONOCYTES # (AUTO) 0.9 X 10^3 (0.0-1.0); MONOCYTES % (AUTO) 11 % (0-12); NEUTROPHILS % (AUTO) 71 % (42-75); PLATELET COUNT 259 10^3/uL (130-400); RED CELL DISTRIBUTION WIDTH 12.9 % (10.0-14.5); WHITE BLOOD COUNT 8.5 10^3/uL (4.3-11.0)
[2016-05-23 05:27] LABS: INR 1.6 (0.8-1.4); PROTHROMBIN TIME PATIENT 18.3 SEC (12.2-14.7)
[2016-05-23 05:39] LABS: ANION GAP 12 MMOL/L (5-14); BLOOD UREA NITROGEN 22 MG/DL (7-18); BUN/CREATININE RATIO 22; CALCIUM 8.6 MG/DL (8.5-10.1); CARBON DIOXIDE 24 MMOL/L (21-32); CHLORIDE 95 MMOL/L (98-107); CREATININE SERUM 0.98 MG/DL (0.60-1.30); GFR ESTIMATED > 60; GLUCOSE 115 MG/DL (70-105); MAGNESIUM 1.9 MG/DL (1.8-2.4); POTASSIUM 4.3 MMOL/L (3.6-5.0); SODIUM 131 MMOL/L (135-145)
[2016-05-23] MEDS: FUROSEMIDE 40 MG/4 ML INJ (LASIX) IV SCH ×2 (06:09→18:07)
[2016-05-23] MEDS: CATHETER FLUSH 10 ML SYR IV SCH ×3 (06:09→22:01)
[2016-05-23] MEDS: RT-ADVAIR HFA 115/21 MCG PER PUFF IH SCH ×2 (07:13→20:17)
[2016-05-23] MEDS: RT-ALBUTEROL SULF 2.5 MG/3 ML PRE-MIX VIAL INH SCH ×2 (07:13→20:17)
[2016-05-23 08:00] VITALS: BP 108/71
--- NOTE | 2016-05-23 08:57 | Progress Note-Cardiology ---
Cardiology SOAP Progress Note Subjective: Sitting up in a chair at the bedside. Reports breathing about the same as yesterday. No c/o CP, palpitations, syncope or near syncope. No c/o LE edema. C/O difficulty breathing when lying flat. Objective: I&O/Vital Signs Vital Sign - Last 12Hours 05/23/16 05/23/16 05/23/16 05/23/16 00:46 04:00 07:00 07:16 Temp 98.2 Pulse 114 98 118 Resp 18 B/P 90/61 Pulse Ox 95 94 O2 Delivery Nasal Cannula O2 Flow Rate 3.00 2.00 05/23/16 05/23/16 08:00 08:01 Temp 96.8 Pulse 84 Resp 16 B/P 108/71 Pulse Ox 95 O2 Delivery Nasal Cannula Nasal Cannula O2 Flow Rate 3.00 3.00 Intake and Output 05/23/16 00:00 Intake Total 2430 ml Output Total 2175 ml Balance 255 ml Weight (Pounds): 204 Weight (Ounces): 8.0 Weight (Calculated Kilograms): 92.789891 Constitutional: AAO x 3 well-developed well-nourished Respiratory: No accessory muscle use, other (fair bilateral air entry, diminished air entry at the bases, basal coarse and fine crackles; orthopnea) Cardiovascular: irregularly irregular S1 and S2 systolic murmur (2/6 MSM at card apex and base) Gastrointestional: No tender, softNo guarding, No rebound, audible bowel sounds Extremities: swelling (mild bilateral pitting edema of the legs)No clubbing, No cyanosis Neurologic/Psychiatric: grossly intact power is 5/5 both on sides Skin: No rash on exposed areas, No ulcerations on exposed areas Results/Procedures: Labs Laboratory Tests 05/23/16 04:10: Anion Gap 12, BUN/Creatinine Ratio 22, Basophils # (Auto) 0.0, Basophils (%) ( Auto) 0, Blood Urea Nitrogen 22H, Calcium Level 8.6, Carbon Dioxide Level 24, Chloride Level 95L, Creatinine 0.98, Eosinophils # (Auto) 0.2, Eosinophils (%) ( Auto) 2, Estimat Glomerular Filtration Rate > 60, Glucose Level 115H, Hematocrit 32L, Hemoglobin 10.5L, INR Comment 1.6H, Lymphocytes # (Auto) 1.4, Lymphocytes (%) (Auto) 16, Magnesium Level 1.9, Mean Corpuscular Hemoglobin 33, Mean Corpuscular Hemoglobin Concent 33, Mean Corpuscular Volume 99, Mean Platelet Volume 10.2, Monocytes # (Auto) 0.9, Monocytes (%) (Auto) 11, Neutrophils # (Auto) 6.0, Neutrophils (%) (Auto) 71, Platelet Count 259, Potassium Level 4.3, Prothrombin Time 18.3H, Red Blood Count 3.20L, Red Cell Distribution Width 12.9, Sodium Level 131L, White Blood Count 8.5 A/P: Assessment: Multifactorial shortness of breath (see below) Shortness of breath due to acute on chronic CHF due to valvular heart disease ( as described under cath summary) Card cath of 03/01/16: moderately severe mitral regurg, mod aortic stenosis ( valve area 1.1 sq cm), 70% prox stenosis of RCA, LVEF 50%, elevated LVEDP, pulmonary hypertension with mean PA pressure 42 mmHg and pulmonary vascular resistance 4 Wood units Chronic a fib with an average vent response of 92 bpm on Holter of 02/17/16 Obesity with BMI approx 37 and with obesity-hypoventilation syndrome H/o COPD Chronic warfarin anticoag, being followed by [facility] - sub-therapeutic INR Echo Mar 2015 at [facility]: mild LVH, biatrial enlargement, LVEF 45-50%, mod (mean gradient 18, valve area 0.8 sq cm), mild to mod AI, mod MR, PASP could not be calculated. Echo 02/18/16 at [facility], [place], [place]: moderately severe to severe MR, severe aortic stenosis with valve area approx 0.9 sq cm, PASP 50-55 mmHg, LVEF appox 50%, mild LVH Quit tobacco use in 1971 Leg tiredness/claudication, segmental pressures of March 2016 inconclusive, u/ s of 05/18/16 did not show any evidence of hemodynamically significant obstructive arterial disease involving the leg arteries Mild carotid arterial disease per u/s of March 18, 2016 CKD stage 2 No evidence of AAA per u/s of 03-18-16 Plan: * Complex management due to multiple comorbidities * Treat with iv furosemide for now and monitor labs * He is [facility] * Sub-therapeutic INR - cover with Lovenox until INR greater than 2.0 * Sleep apnea eval is recommended as an outpatient Physician Assessment Physician Assessment Lungs: fair to good air entry Cor: irreg, tachy A&R * As documented in our note above * Not ready for discharge yet * Add dig for better vent rate control * Cannot increase beta-chris because of relatively low bp * Monitor labs * I had a detailed discussion with him regarding his CV issues, and answered questions JOSH SNEED ROLL RECLAIMER May 23, 2016 08:57 [facility]ACH [facility] May 23, 2016 12:15
[2016-05-23] MEDS: LORATADINE (CLARITIN) 10 MG TAB PO SCH (10:13)
[2016-05-23] MEDS: FOLIC ACID 1 MG TAB PO SCH (10:13)
[2016-05-23] MEDS: KCL 20 MEQ TAB (K-DUR) PO SCH ×2 (10:13→20:01)
[2016-05-23] MEDS: sulfaSALAzine 500 MG (AZULFIDINE) TAB PO SCH ×2 (10:13→20:01)
[2016-05-23] MEDS: CARVEDILOL 6.25 MG (COREG) TAB PO SCH ×2 (10:13→20:01)
[2016-05-23] MEDS: SPIRONOLACTONE 25 MG (ALDACTONE) TAB PO SCH ×2 (10:13→20:01)
[2016-05-23] MEDS: OMEGA 3 (FISH OIL) 1000 MG CAP PO SCH (10:13)
[2016-05-23] MEDS: meTOproloL SUCCINATE 50 MG (TOPROL XL) TAB PO SCH (10:13)
[2016-05-23] MEDS: ENOXAPARIN 100 MG/1 ML (LOVENOX) SYR SC SCH ×2 (10:14→20:00)
--- NOTE | 2016-05-23 10:55 | Progress Note-Hospitalist ---
Progress Note HPI/CC on Admission The patient is a 75-year-old white male previously admitted here in March. He presented to the emergency room yesterday with a chief complaint of increasing shortness of breath and a 5 pound weight gain. He has had previous history of congestive heart failure and was admitted here in March for the same. He is seen by cardiology with MARCK Velasco. He reports that he has a valve in critical need of replacement. [facility]. He also reports that he has inflammatory arthritis. He has been taking tacrolimus for this for 2 years. He apparently had problems with methotrexate prior to that. At this time he also reports decreased ability to ambulate because of dyspnea and also orthopnea. He is known from an echocardiogram in February 2016 to have severe aortic stenosis with a calculated valvular area of oh 0.9 cm, moderately severe to severe mitral regurgitation, pulmonary hypertension with estimated PAP at 50-55 mmHg, and an ejection fraction of 50 percent Progress Notes/Assess & Plan Date Seen 05/23/16 Diagonsis/Assessment & Plan Chart Review: CBC normal except Hgb 10.5 Na+ 131 INR 1.6 Pt on Coumadin and Lovenox Patient Interview: Pt states that he feels improved. Pt states that he has a pain of 5 currently. Pt takes extra strength Tylenol two pills once daily normally, but occasionally takes a second dose if needed. Pt wears O2 at home. Physical exam stable. Pt is having regular BMs. no fever, vital signs stable, pleasant, oriented 3 Irr Irr w/murmur, CTAB No edema Assessment: Acute exacerbation of COPD with volume overload critical aortic stenosis Immunosuppressive use Hyperlipidemia hyponatremia AF Plan: PT/OT Pt on Coumadin and Lovenox bridge IV diuretics Reconcile all home meds Scribed by Yony Arboleda under the direct supervision of Dr. Armendariz. BUCK ARMENDARIZ DO May 23, 2016 10:54
[2016-05-23 12:00] VITALS: BP 96/62
--- NOTE | 2016-05-23 13:58 | Occupational Therapy Eval ---
OT Evaluation-General/PLF Medical Diagnosis Admission Date May 21, 2016 at 15:00 Medical Diagnosis: Pulmonary edema Onset Date: May 21, 2016 Therapy Diagnosis Therapy Diagnosis: Weakness, Decreased ADL skills Height/Weight Height (Feet): 5 Height (Inches): 2.00 Weight (Pounds): 204 Weight (Ounces): 8.0 Precautions Precautions/Isolations: Standard Precautions Safety Interventions: None Weight Bear Status Weight Bearing Restriction: Weight Bearing/Tolerated Referral Physician: Dr. Holbrook Referral Reason: Activity Tolerance, Self Care, Evaluation/Treatment, Strengthening/ROM Medical History Pertinent Medical History: Atrial Fib, Arthritis, COPD, GERD, HTN Additional Medical History pneumonia, valvular heart disease Current History Pt. lives in assisted living. Was in hospital in March. Became very SOA. Is on constant oxygen. Reviewed History: Yes Social History Home: Assisted Living Current Living Status: Entry Into Home: Level Entry ADL-Prior Level of Function ADL PLOF Comments Pt. was independent with bathing and dressing. States that they do his laundry and clean for him. He ambulates to the dining area for 3 meals a day. DME/Equipment: Shower DME/Equipment Comments Pt. states that he has a walker but does not use it. Is on oxygen [address] Self: Yes OT Current Status Subjective No pain reported. Appearance Pt. up in chair. Agrees to shower. Mental Status/Objective Patient Orientation: Person, Place, Time, Situation Current Glasses/Contacts: Yes Hearing Aids: Yes Dentures/Partials: Yes Hand Dominance: Right Upper Extremity ROM WFL Upper Extremity Coordination intact- pt. does however had arthritis in all joints. Upper Extremity Strength WFL ADL-Treatment Functional [place] Measure 0=Not Assessed/NA 4=Minimal Assistance 1=Total Assistance 5=Supervision or Setup 2=Maximal Assistance 6=Modified [place] 3=Moderate Assistance 7=Complete IndependenceIRFPAI Quality Coding Scale 6 Independent with activity with or without an assistive device 5 Patient requires set up or clean up by helper. Patient completes activity by themselves 4 Supervision or touching assist (CGA). [place] provide cues , steadying assist 3 The helper provides less than half the effort to complete the activity 2 The helper provides more than half the effort to complete the activity 1 Dependent. The helper does all the effort to complete an activity 7 Patient refused to complete or attempt activity 9 The patient did not perform the activity before the current illness or injury 88 Not attempted due to Medical conditions or safety concerns Eating (FIM): 6 (per pt. report.) Bathing (FIM): 5 (SBA with ADLs.) Lower Body Dressing (FIM): 5 (SBA to doff and don socks.) Transfers (B, C, W/C) (FIM): 5 (SBA with walker to transfer sit-stand and back to sit.) Shower Transfer (FIM): 5 Education OT Patient Education: Correct positioning, Modified ADL techniques, Progress toward Goal/Update tx plan, Purpose of tx/functional activities, Reviewed precautions, Rehab process, Transfer techniques Teaching Recipient: Patient Teaching Methods: Demonstration, Discussion Response to Teaching: Verbalize Understanding, Return Demonstration OT Short Term Goals Short Term Goals 1=Demonstrate adherence to instructed precautions during ADL tasks. 2=Patient will verbalize/demonstrate understanding of assistive devices/ modifications for ADL. 3=Patient will improve strength/tolerance for activity to enable patient to perform ADL's. OT Chcf Goals Chcf Goals Time Frame: May 30, 2016 Eating (FIM): 6 Grooming(FIM): 6 Bathing(FIM): 6 Upper Body Dressing(FIM): 6 Lower Body Dressing(FIM): 6 Toileting(FIM): 6 Transfers (B,C,W/C) (FIM): 6 Toilet/Commode Transfer(FIM): 6 Shower Transfer(FIM): 5 Additional Goals: 1-Demonstrate ADL Tasks, 2-Verbalize Understanding, 3- ImproveStrength/Raheem 1=Demonstrate adherence to instructed precautions during ADL tasks. 2=Patient will verbalize/demonstrate understanding of assistive devices/ modifications for ADL. 3=Patient will improve strength/tolerance for activity to enable patient to perform ADL's. OT Education/Plan Problem List/Assessment Assessment: Decreased Activ Tolerance, Impaired I ADL's, Impaired Self-Care Skills Discharge Recommendations Plan/Recommendations: Continue POC Therapy D/C Recommendations: Assisted Living Equpiment Recommendations-D/C: Bath Chair Target Placement Pt. plans to return to [facility], which is an assisted living. Treatment Plan/Plan of Care Treatment,Training & Education: Yes Patient would benefit from OT for education, treatment and training to promote independence in ADL's, mobility, safety and/or upper extremity function for ADL' s. Plan of Care: ADL Retraining, Functional Mobility, UE Funct Exercise/Act Treatment Duration: May 30, 2016 # of days/week 5-6 Visits Per Week: 5-6 Agreement: Yes Rehab Potential: Good Time/GCodes Start Time: 13:00 Stop Time: 13:45 Total Time Billed (hr/min): 45 Billed Treatment Time 1, EVmod x 15minutes, ADL x 30minutes BRENDA MCDONALD OT May 23, 2016 13:58
--- NOTE | 2016-05-23 14:50 | Physical Therapy Evaluation ---
PT Evaluation-General Medical Diagnosis Admission Date May 21, 2016 at 15:00 Medical Diagnosis: Pulmonary edema Onset Date: May 21, 2016 Therapy Diagnosis Therapy Diagnosis: debility Height/Weight Height (Feet): 5 Height (Inches): 2.00 Weight (Pounds): 204 Weight (Ounces): 8.0 Precautions Precautions/Isolations: Standard Precautions Weight Bear Status Weight Bearing Restriction: Weight Bearing/Tolerated Referral Physician: Dr. Holbrook Reason for Referral: Evaluation/Treatment Medical History Pertinent Medical History: Atrial Fib, Arthritis, COPD, GERD, HTN Additional Medical History pulmonary edema; obesity Current History to ED via ambulance with SOA x 2 days Reviewed History: Yes Social History Home: Assisted Living Current Living Status: Entry Into Home: Level Entry Prior/Core FIM Prior Level of Function Functional [place] Measure 0=Not Assessed/NA 4=Minimal Assistance 1=Total Assistance 5=Supervision or Setup 2=Maximal Assistance 6=Modified [place] 3=Moderate Assistance 7=Complete [place] Bed Mobility: 6 Transfers (B,C,W/C) (FIM): 6 Gait: 6 PT Evaluation-Current Subjective Patient is very agreeable to participate with PT. Pain Numeric Pain Scale: 0-No Pain Location: No Pain Reported Objective Patient Orientation: Normal For Age Problem Solving: Good Attachments: Oxygen (2L) ROM/Strength ROM Lower Extremities bilateral LE WFL Strenght Lower Extremities bilateral LE WFL Integumentary/Posture Integumentary refer to nursing notes Bowel Incontinence: No Bladder Incontinence: No Posture slightly kyphotic Neuromuscular (Tone, Coordination, Reflexes) grossly intact Sensory Vision: Wears Glasses Hearing: Impaired Hand Dominance: Right Transfers Functional [place] Measure 0=Not Assessed/NA 4=Minimal Assistance 1=Total Assistance 5=Supervision or Setup 2=Maximal Assistance 6=Modified [place] 3=Moderate Assistance 7=Complete [place] Transfers (B, C, W/C) (FIM): 6 Scootin Rollin Supine to/from Sit: 6 Sit to/from Stand: 6 Gait Mode of Locomotion: Walk Anticipated Mode of Locomotion: Walk Gait (FIM): 6 Distance (FIM): 3=150 ft Distance: 250' Gait Level of Assist: 6 Gait Assistive Device: FWW Comments/Gait Description safe and functional; assist for O2 tank Balance Sitting Static: Normal Sitting Dynamic: Normal Standing Static: Normal Standing Dynamic: Normal Assessment/Needs 75 y.o. male, will benefit from short term skilled PT to address cardiopulmonary function with mobility to ensure safe return to [place] at maximum LOF. Rehab Potential: Good PT Short Term Goals Short Term Goals Time Frame: May 27, 2016 Transfers (B,C,W/C) (FIM): 6 Gait (FIM): 6 Distance (FIM): 3=150 ft Gait Level of Assist: 6 Gait Assistive Device: FWW PT Plan Problem List Problem List: Activity Tolerance Treatment/Plan Treatment Plan: Continue Plan of Care Treatment Plan: Education, Functional Activity Raheem, Functional Strength, Gait , Safety, Therapeutic Exercise Treatment Duration: May 27, 2016 # of days/week 5 Visits Per Week: 5 Pt/Family Agrees w/Plan: Yes Discharge Recommendations Therapy D/C Recommendations: Assisted Living Time/GCodes Time In: 1420 Time Out: 1440 Total Billed Treatment Time: 20 Total Billed Treatment 1 visit EVLowC 20 min G Codes Necessary: No PENG RESENDEZ PT May 23, 2016 14:50
[2016-05-23 15:42] VITALS: BP 115/83
[2016-05-23] MEDS ORDERED: warFARin 5 MG (COUMADIN) TAB PO SCH (18:00)
[2016-05-23] MEDS: ALFUZOSIN HCL 10 MG TAB (UROXATRAL) PO SCH (18:06)
[2016-05-23] MEDS: ASPIRIN E.C. 81 MG (ECOTRIN) TAB PO SCH (20:00)
[2016-05-23] MEDS: ATORVASTATIN 80 MG (LIPITOR) TABLET PO SCH (20:01)
[2016-05-23] MEDS: TACROLIMUS 1 MG (PROGRAF) CAP NON-FORMULARY PO SCH (20:02)
[2016-05-23 20:13] VITALS: BP 109/62
[2016-05-24] VITALS: BP 90/50
[2016-05-24] MEDS: ACETAMINOPHEN 500 MG TAB (TYLENOL) PO PRN ×2 (00:55→13:45)
[2016-05-24 04:00] VITALS: BP 119/63
[2016-05-24] MEDS: CATHETER FLUSH 10 ML SYR IV SCH ×3 (05:58→22:03)
[2016-05-24] MEDS: FUROSEMIDE 40 MG/4 ML INJ (LASIX) IV SCH (05:58)
[2016-05-24] MEDS: RT-ALBUTEROL SULF 2.5 MG/3 ML PRE-MIX VIAL INH SCH ×2 (06:38→19:52)
[2016-05-24] MEDS: RT-ADVAIR HFA 115/21 MCG PER PUFF IH SCH ×2 (06:38→19:52)
[2016-05-24 06:59] LABS: ANION GAP 12 MMOL/L (5-14); BLOOD UREA NITROGEN 24 MG/DL (7-18); BUN/CREATININE RATIO 24; CALCIUM 8.9 MG/DL (8.5-10.1); CARBON DIOXIDE 25 MMOL/L (21-32); CHLORIDE 93 MMOL/L (98-107); CREATININE SERUM 1.01 MG/DL (0.60-1.30); GFR ESTIMATED > 60; GLUCOSE 111 MG/DL (70-105); MAGNESIUM 2.1 MG/DL (1.8-2.4); POTASSIUM 4.1 MMOL/L (3.6-5.0); SODIUM 130 MMOL/L (135-145)
[2016-05-24 08:20] VITALS: BP 101/58
[2016-05-24 08:29] LABS: INR 1.6 (0.8-1.4); PROTHROMBIN TIME PATIENT 18.9 SEC (12.2-14.7)
[2016-05-24] MEDS: FOLIC ACID 1 MG TAB PO SCH (08:38)
[2016-05-24] MEDS: meTOproloL SUCCINATE 50 MG (TOPROL XL) TAB PO SCH (08:38)
[2016-05-24] MEDS: sulfaSALAzine 500 MG (AZULFIDINE) TAB PO SCH ×2 (08:38→20:23)
[2016-05-24] MEDS: KCL 20 MEQ TAB (K-DUR) PO SCH ×2 (08:38→20:23)
[2016-05-24] MEDS: SPIRONOLACTONE 25 MG (ALDACTONE) TAB PO SCH ×2 (08:38→20:23)
[2016-05-24] MEDS: OMEGA 3 (FISH OIL) 1000 MG CAP PO SCH (08:38)
[2016-05-24] MEDS: LORATADINE (CLARITIN) 10 MG TAB PO SCH (08:39)
[2016-05-24] MEDS: ENOXAPARIN 100 MG/1 ML (LOVENOX) SYR SC SCH ×2 (08:39→20:24)
[2016-05-24] MEDS: CARVEDILOL 6.25 MG (COREG) TAB PO SCH ×2 (08:39→20:23)
[2016-05-24] MEDS: DIGOXIN 0.25 MG (LANOXIN) TAB PO SCH (08:39)
[2016-05-24] MEDS ORDERED: DIGOXIN 62.5 MCG (LANOXIN) TAB PO SCH (09:00)
[2016-05-24] MEDS ORDERED: warFARin 7.5 MG (COUMADIN) TAB PO NR (09:15)
--- NOTE | 2016-05-24 09:46 | Progress Note-Cardiology ---
Cardiology SOAP Progress Note Subjective: Sitting up on the side of the bed. States breathing is better and feels better today. No c/o CP, palpitations, syncope or near syncope. Objective: I&O/Vital Signs Vital Sign - Last 12Hours 05/24/16 05/24/16 05/24/16 05/24/16 06:40 06:41 07:00 08:20 Temp 96.9 Pulse 111 104 Resp 20 B/P 101/58 Pulse Ox 93 94 O2 Delivery Nasal Cannula O2 Flow Rate 2.00 2.00 3.00 05/24/16 05/24/16 05/24/16 05/24/16 09:00 12:00 13:00 16:00 Temp 96.0 96.8 Pulse 90 93 99 Resp 16 22 B/P 106/72 110/73 Pulse Ox 97 96 O2 Delivery Nasal Cannula Nasal Cannula Nasal Cannula O2 Flow Rate 2.00 3.00 3.00 Intake and Output 05/24/16 00:00 Intake Total 2280 ml Output Total 2800 ml Balance -520 ml Weight (Pounds): 196 Weight (Ounces): 8.0 Weight (Calculated Kilograms): 88.289381 Constitutional: AAO x 3 well-developed well-nourished Respiratory: No accessory muscle use, other (good air entry; diminished bases bilat; prolonged expiratory phase) Cardiovascular: irregularly irregular S1 and S2 systolic murmur (2/6 MSM at card apex and base) Gastrointestional: No tender, softNo guarding, No rebound, audible bowel sounds Extremities: No clubbing, No cyanosis, No significant edema Neurologic/Psychiatric: grossly intact power is 5/5 both on sides Skin: No rash on exposed areas, No ulcerations on exposed areas Results/Procedures: Labs Laboratory Tests 05/24/16 05:31: Anion Gap 12, BUN/Creatinine Ratio 24, Blood Urea Nitrogen 24H, Calcium Level 8.9, Carbon Dioxide Level 25, Chloride Level 93L, Creatinine 1.01, Estimat Glomerular Filtration Rate > 60, Glucose Level 111H, Magnesium Level 2.1, Potassium Level 4.1, Sodium Level 130L 05/24/16 05:51: INR Comment 1.6H, Prothrombin Time 18.9H A/P: Assessment: Multifactorial shortness of breath (see below) Shortness of breath due to acute on chronic CHF due to valvular heart disease ( as described under cath summary) - clinically improved Card cath of 03/01/16: moderately severe mitral regurg, mod aortic stenosis ( valve area 1.1 sq cm), 70% prox stenosis of RCA, LVEF 50%, elevated LVEDP, pulmonary hypertension with mean PA pressure 42 mmHg and pulmonary vascular resistance 4 Wood units Chronic a fib with an average vent response of 92 bpm on Holter of 02/17/16 Obesity with BMI approx 37 and with obesity-hypoventilation syndrome H/o COPD Chronic warfarin anticoag, being followed by [facility] Glendy - sub-therapeutic INR Echo Mar [address] [facility]: mild LVH, biatrial enlargement, LVEF 45-50%, mod (mean gradient 18, valve area 0.8 sq cm), mild to mod AI, mod MR, PASP could not be calculated. Echo 02/18/16 at [place], [place]: moderately severe to severe MR, severe aortic stenosis with valve area approx 0.9 sq cm, PASP 50-55 mmHg, LVEF appox 50%, mild LVH Quit tobacco use in 1971 Leg tiredness/claudication, segmental pressures of March 2016 inconclusive, u/ s of 05/18/16 did not show any evidence of hemodynamically significant obstructive arterial disease involving the leg arteries Mild carotid arterial disease per u/s of March 18, 2016 CKD stage 2 No evidence of AAA per u/s of 03-18-16 Hyponatremia likely d/t diuretic tx Plan: * Complex management due to multiple comorbidities * CHF clinically improved - reduced diuretic regimen * HR improved with addition of Toprol, but not well controlled, somewhat low blood pressure prevents us from increasing BB dose; we will add Dig and monitor level * [facility] * Sub-therapeutic INR - cover with Lovenox until INR greater than 2.0 * Sleep apnea eval is recommended as an outpatient Physician Assessment Physician Assessment Lungs: improved air entry Cor: reg A&R * As documented in our note above * I spoke with him and answered his questions JOSH SNEED May 24, 2016 09:46 MARCK BACH MD FACP FAC CCDS May 24, 2016 18:05
--- NOTE | 2016-05-24 10:52 | Progress Note-Hospitalist ---
Progress Note HPI/CC on Admission The patient is a 75-year-old white male previously admitted here in March. He presented to the emergency room yesterday with a chief complaint of increasing shortness of breath and a 5 pound weight gain. He has had previous history of congestive heart failure and was admitted here in March for the same. He is seen by cardiology with MARCK Velasco. He reports that he has a valve in critical need of replacement. [facility] not [facility] at this [facility]. He also reports that he has inflammatory arthritis. He has been taking tacrolimus for this for 2 years. He apparently had problems with methotrexate prior to that. At this time he also reports decreased ability to ambulate because of dyspnea and also orthopnea. 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 Patient Interview: Pt states that he feels good today. Pt states that he has not seen Dr. Anaya for Cardiology previously. Pt states that he is still urinating regularly. Physical exam stable. Pt has been working with PT. Pt lives in assisted living, and will soon move to a new building where he will be managing his own care fully. 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 Armendariz. BUCK ARMENDARIZ DO May 24, 2016 10:52
--- NOTE | 2016-05-24 10:59 | Occupational Ther Daily Note ---
OT Current Status-Daily Note Subjective Pt alert, lying in bed. Pt had already showered for the day, stating he has been up since 4 am. Pt agreed to therapy. No c/o pain. Mental Status/Objective Patient Orientation: Person, Place, Time, Situation Functional [place] Measure 0=Not Assessed/NA 4=Minimal Assistance 1=Total Assistance 5=Supervision or Setup 2=Maximal Assistance 6=Modified [place] 3=Moderate Assistance 7=Complete [place] Attachments: IV ADL-Treatment Pt was able to scoot self up in bed using legs and pushing self up, independently. Other Treatment Pt completed 5 UE exercises against gravity, 1 set 15x. Pt demonstrated SOA during exercises and stated that he was fatigued after each one. After therapy , pt lying in bed with call light/phone in reach. All needs met in room. OT Short Term Goals Short Term Goals Transfers (B,C,W/C) (FIM): 6 1=Demonstrate adherence to instructed precautions during ADL tasks. 2=Patient will verbalize/demonstrate understanding of assistive devices/ modifications for ADL. 3=Patient will improve strength/tolerance for activity to enable patient to perform ADL's. OT Alf Goals Lunchroom Food Service Supervisor Goals Time Frame: May 30, 2016 Eating (FIM): 6 Grooming(FIM): 6 Bathing(FIM): 6 Upper Body Dressing(FIM): 6 Lower Body Dressing(FIM): 6 Toileting(FIM): 6 Transfers (B,C,W/C) (FIM): 6 Toilet/Commode Transfer(FIM): 6 Shower Transfer(FIM): 5 Additional Goals: 1-Demonstrate ADL Tasks, 2-Verbalize Understanding, 3- ImproveStrength/Raheem 1=Demonstrate adherence to instructed precautions during ADL tasks. 2=Patient will verbalize/demonstrate understanding of assistive devices/ modifications for ADL. 3=Patient will improve strength/tolerance for activity to enable patient to perform ADL's. OT Education/Plan Discharge Recommendations Plan/Recommendations: Continue POC Treatment Plan/Plan of Care Patient would benefit from OT for education, treatment and training to promote independence in ADL's, mobility, safety and/or upper extremity function for ADL' s. Plan of Care: ADL Retraining, Functional Mobility, UE Funct Exercise/Act Treatment Duration: May 30, 2016 Visits Per Week: 5-6 Agreement: Yes Rehab Potential: Good Time/GCodes Start Time: 10:30 Stop Time: 10:45 Total Time Billed (hr/min): 15 Billed Treatment Time 1 visit-EX 1 (15 min) CHUCHO HENRY May 24, 2016 10:59
[2016-05-24 12:00] VITALS: BP 106/72
--- NOTE | 2016-05-24 13:06 | Physical Therapy Daily Note ---
PT Daily Note-Current Subjective Pt laying supine in bed with head raised upon arrival. Pt reports headache started overnight and continues to bother him with little relief from pain med. Pt agrees to Supine Ex in bed for PT. Pain Numeric Pain Scale: 6 Location: Dorsal Location Body Site: Head Pain Description: Ache Mental Status Patient Orientation: Person, Place, Situation Attachments: Oxygen Transfers Functional [place] Measure 0=Not Assessed/NA 4=Minimal Assistance 1=Total Assistance 5=Supervision or Setup 2=Maximal Assistance 6=Modified [place] 3=Moderate Assistance 7=Complete IndependenceIRFPAI Quality Coding Scale 6 Independent with activity with or without an assistive device 5 Patient requires set up or clean up by helper. Patient completes activity by themselves 4 Supervision or touching assist (CGA). [place] provide cues , steadying assist 3 The helper provides less than half the effort to complete the activity 2 The helper provides more than half the effort to complete the activity 1 Dependent. The helper does all the effort to complete an activity 7 Patient refused to complete or attempt activity 9 The patient did not perform the activity before the current illness or injury 88 Not attempted due to Medical conditions or safety concerns Exercises Supine Ex: Ankle pumps, Quad Set, Rolling (10 reps), Heel Slides, Straight leg raise, Hip abd/add Supine Reps: 20 Treatments Pt completes Supine Ex in bed since pt reports constant headache. Pt is left supine in bed with all needs met at end of tx. Assessment Current Status: Fair Progress Pt requires rest breaks during Ex but able to complete AROM Ex. PT Short Term Goals Short Term Goals Time Frame: May 27, 2016 Transfers (B,C,W/C) (FIM): 6 Gait (FIM): 6 Distance (FIM): 3=150 ft Gait Level of Assist: 6 Gait Assistive Device: FWW PT Plan Problem List Problem List: Activity Tolerance, Functional Strength, Safety, Gait, Transfer Treatment/Plan Treatment Plan: Continue Plan of Care Treatment Plan: Education, Functional Activity Raheem, Functional Strength, Gait , Safety, Therapeutic Exercise Treatment Duration: May 27, 2016 Visits Per Week: 5 Safety Risks/Education Patient Education: Transfer Techniques, Correct Positioning, Safety Issues Teaching Recipient: Patient Teaching Methods: Discussion Response to Teaching: Verbalize Understanding Time/GCodes Time In: 1150 Time Out: 1215 Total Billed Treatment Time: 25 Total Billed Treatment visit, EX X2 (25m) EMMA BELTRE PTA May 24, 2016 13:06
[2016-05-24] MEDS ORDERED: VITAMIN D3 PO (14:42)
[2016-05-24 16:00] VITALS: BP 110/73
[2016-05-24] MEDS: HYDROcodone/APAP 5 MG/325 MG (LORTAB) TAB PO PRN ×2 (16:21→22:03)
[2016-05-24] MEDS: ALFUZOSIN HCL 10 MG TAB (UROXATRAL) PO SCH (16:21)
[2016-05-24] MEDS: ATORVASTATIN 80 MG (LIPITOR) TABLET PO SCH (20:23)
[2016-05-24] MEDS: ASPIRIN E.C. 81 MG (ECOTRIN) TAB PO SCH (20:23)
[2016-05-24] MEDS: TACROLIMUS 1 MG (PROGRAF) CAP NON-FORMULARY PO SCH (20:24)
[2016-05-24 20:50] VITALS: BP 103/61
[2016-05-25 00:04] VITALS: BP 90/59
[2016-05-25 04:11] VITALS: BP 134/72
[2016-05-25] MEDS: CATHETER FLUSH 10 ML SYR IV SCH (06:26)
[2016-05-25 06:31] LABS: INR 1.8 (0.8-1.4); PROTHROMBIN TIME PATIENT 20.9 SEC (12.2-14.7)
[2016-05-25 07:02] LABS: ALANINE AMINOTRANSFERASE 18 U/L (0-55); ALBUMIN 3.5 G/DL (3.2-4.5); ANION GAP 10 MMOL/L (5-14); ASPARTATE AMINO TRANSFERASE 26 U/L (5-34); BILIRUBIN,TOTAL 0.4 MG/DL (0.1-1.0); BLOOD UREA NITROGEN 23 MG/DL (7-18); BUN/CREATININE RATIO 22; CALCIUM 8.9 MG/DL (8.5-10.1); CARBON DIOXIDE 25 MMOL/L (21-32); CHLORIDE 95 MMOL/L (98-107); CREATININE SERUM 1.03 MG/DL (0.60-1.30); GFR ESTIMATED > 60; GLUCOSE 115 MG/DL (70-105); POTASSIUM 4.4 MMOL/L (3.6-5.0); SODIUM 130 MMOL/L (135-145); TOTAL PROTEIN 6.4 G/DL (6.4-8.2)
[2016-05-25] MEDS: RT-ALBUTEROL SULF 2.5 MG/3 ML PRE-MIX VIAL INH SCH (07:09)
[2016-05-25] MEDS: RT-ADVAIR HFA 115/21 MCG PER PUFF IH SCH (07:09)
[2016-05-25] MEDS: LORATADINE (CLARITIN) 10 MG TAB PO SCH (07:44)
[2016-05-25] MEDS: DIGOXIN 0.25 MG (LANOXIN) TAB PO SCH (07:44)
[2016-05-25] MEDS: OMEGA 3 (FISH OIL) 1000 MG CAP PO SCH (07:44)
[2016-05-25] MEDS: KCL 20 MEQ TAB (K-DUR) PO SCH (07:44)
[2016-05-25] MEDS: CARVEDILOL 6.25 MG (COREG) TAB PO SCH (07:44)
[2016-05-25] MEDS: sulfaSALAzine 500 MG (AZULFIDINE) TAB PO SCH (07:44)
[2016-05-25] MEDS: meTOproloL SUCCINATE 50 MG (TOPROL XL) TAB PO SCH (07:45)
[2016-05-25] MEDS: SPIRONOLACTONE 25 MG (ALDACTONE) TAB PO SCH (07:45)
[2016-05-25] MEDS: FOLIC ACID 1 MG TAB PO SCH (07:45)
[2016-05-25] MEDS: ENOXAPARIN 100 MG/1 ML (LOVENOX) SYR SC SCH (08:00)
[2016-05-25 08:18] VITALS: BP 116/78
--- NOTE | 2016-05-25 08:51 | Progress Note-Cardiology ---
Cardiology SOAP Progress Note Subjective: Sitting up on the side of the bed. States he feels better today and wants to go home. No c/o CP, palpitations, syncope or near syncope. No c/o LE edema. Feels breathing is back to his baseline. Objective: I&O/Vital Signs Vital Sign - Last 12Hours 05/25/16 05/25/16 05/25/16 05/25/16 00:04 01:00 04:11 07:00 Temp 97.3 97.3 Pulse 94 107 102 114 Resp 20 16 B/P 90/59 134/72 Pulse Ox 97 96 O2 Delivery Nasal Cannula Nasal Cannula O2 Flow Rate 3.00 3.00 05/25/16 05/25/16 05/25/16 05/25/16 07:12 07:12 08:18 08:50 Temp 97.7 Pulse 102 Resp 24 B/P 116/78 Pulse Ox 96 94 O2 Delivery Nasal Cannula Nasal Cannula O2 Flow Rate 2.00 2.00 3.00 2.00 Intake and Output 05/25/16 00:00 Intake Total 2780 ml Output Total 1725 ml Balance 1055 ml Weight (Pounds): 198 Weight (Ounces): 1.0 Weight (Calculated Kilograms): 89.987320 Constitutional: AAO x 3 well-developed well-nourished Respiratory: No accessory muscle use, other (good air entry; diminished bases bilat; prolonged expiratory phase) Cardiovascular: irregularly irregular S1 and S2 systolic murmur (2/6 MSM at card apex and base) Gastrointestional: No tender, softNo guarding, No rebound, audible bowel sounds Extremities: No clubbing, No cyanosis, No significant edema Neurologic/Psychiatric: grossly intact power is 5/5 both on sides Skin: No rash on exposed areas, No ulcerations on exposed areas Results/Procedures: Labs Laboratory Tests 05/25/16 05:09: Alanine Aminotransferase (ALT/SGPT) 18, Albumin 3.5, Alkaline Phosphatase 53, Anion Gap 10, Aspartate Amino Transf (AST/SGOT) 26, BUN/Creatinine Ratio 22, Blood Urea Nitrogen 23H, Calcium Level 8.9, Carbon Dioxide Level 25, Chloride Level 95L, Creatinine 1.03, Estimat Glomerular Filtration Rate > 60, Glucose Level 115H, INR Comment 1.8H, Magnesium Level 2.0, Potassium Level 4.4, Prothrombin Time 20.9H, Sodium Level 130L, Total Bilirubin 0.4, Total Protein 6.4 A/P: Assessment: Multifactorial shortness of breath (see below) - clinically improved Shortness of breath due to acute on chronic CHF due to valvular heart disease ( as described under cath summary) - clinically improved Card cath of 03/01/16: moderately severe mitral regurg, mod aortic stenosis ( valve area 1.1 sq cm), 70% prox stenosis of RCA, LVEF 50%, elevated LVEDP, pulmonary hypertension with mean PA pressure 42 mmHg and pulmonary vascular resistance 4 Wood units Chronic a fib with an average vent response of 92 bpm on Holter of 02/17/16 Obesity with BMI approx 37 and with obesity-hypoventilation syndrome H/o COPD Chronic warfarin anticoag, being followed by CAROLYN Pike - sub-therapeutic INR Echo Mar 2015 at [facility]: mild LVH, biatrial enlargement, LVEF 45-50%, mod (mean gradient 18, valve area 0.8 sq cm), mild to mod AI, mod MR, PASP could not be calculated. Echo 02/18/16 at [place], [place]: moderately severe to severe MR, severe aortic stenosis with valve area approx 0.9 sq cm, PASP 50-55 mmHg, LVEF appox 50%, mild LVH Quit tobacco use in 1971 Leg tiredness/claudication, segmental pressures of March 2016 inconclusive, u/ s of 05/18/16 did not show any evidence of hemodynamically significant obstructive arterial disease involving the leg arteries Mild carotid arterial disease per u/s of March 18, 2016 CKD stage 2 No evidence of AAA per u/s of 03-18-16 Hyponatremia likely d/t diuretic tx Plan: * Complex management due to multiple comorbidities * CHF clinically improved * HR improved with addition of Toprol, fairly controlled. Dig added yesterday * He was on Coreg and Toprol. We have stopped the Coreg and will continue the Toprol. * OK to discharge home with out pt f/u next week * Out pt lab * [facility] * Sub-therapeutic INR - (INR 1.8 today). Will have him take 7.5mg again today and repeat INR tomorrow along with a Dig level * Sleep apnea eval is recommended as an outpatient Physician Assessment Physician Assessment Lungs: good bilat air entry Cor: irreg with good rate control A&R * As documented in our note above * I discussed his CV issue with him in detail and answered questions JOSH SNEED May 25, 2016 08:51 MARCK BACH MD [facility] May 25, 2016 11:57
[2016-05-25] MEDS ORDERED: FUROSEMIDE 40 MG (LASIX) TAB PO SCH (09:00)
[2016-05-25] MEDS ORDERED: warFARin 7.5 MG (COUMADIN) TAB PO NR (09:33)
[2016-05-25] MEDS ORDERED: METO-272 PO (09:37)
[2016-05-25] MEDS ORDERED: DIGO250T15 PO (09:37)
--- NOTE | 2016-05-25 10:19 | Occupational Ther Daily Note ---
OT Current Status-Daily Note Subjective Pt alert, lying in bed talking on phone. Pt agreed to therapy. No c/o pain. Pt stated that the doctor said he was leaving today. Mental Status/Objective Patient Orientation: Person, Place, Time, Situation Functional [place] Measure 0=Not Assessed/NA 4=Minimal Assistance 1=Total Assistance 5=Supervision or Setup 2=Maximal Assistance 6=Modified [place] 3=Moderate Assistance 7=Complete [place] ADL-Treatment Pt stated that he wanted to wait to clean up and get dressed, OT set clothing and wash cloths out so pt could clean up and get dressed when ready. Pt is up ad santa in room and is able to maneuver self in bed and around room with O2 tubing. After therapy, pt lying in bed with call light/phone in reach. All needs met in room. OT Short Term Goals Short Term Goals Transfers (B,C,W/C) (FIM): 6 1=Demonstrate adherence to instructed precautions during ADL tasks. 2=Patient will verbalize/demonstrate understanding of assistive devices/ modifications for ADL. 3=Patient will improve strength/tolerance for activity to enable patient to perform ADL's. OT Mobile Device Engineer Goals Mobile Device Engineer Goals Time Frame: May 30, 2016 Eating (FIM): 6 Grooming(FIM): 6 Bathing(FIM): 6 Upper Body Dressing(FIM): 6 Lower Body Dressing(FIM): 6 Toileting(FIM): 6 Transfers (B,C,W/C) (FIM): 6 Toilet/Commode Transfer(FIM): 6 Shower Transfer(FIM): 5 Additional Goals: 1-Demonstrate ADL Tasks, 2-Verbalize Understanding, 3- ImproveStrength/Raheem 1=Demonstrate adherence to instructed precautions during ADL tasks. 2=Patient will verbalize/demonstrate understanding of assistive devices/ modifications for ADL. 3=Patient will improve strength/tolerance for activity to enable patient to perform ADL's. OT Education/Plan Discharge Recommendations Plan/Recommendations: Continue POC Treatment Plan/Plan of Care Patient would benefit from OT for education, treatment and training to promote independence in ADL's, mobility, safety and/or upper extremity function for ADL' s. Plan of Care: ADL Retraining, Functional Mobility, UE Funct Exercise/Act Treatment Duration: May 30, 2016 Visits Per Week: 5-6 Agreement: Yes Rehab Potential: Good Time/GCodes Start Time: 09:19 Stop Time: 09:29 Total Time Billed (hr/min): 10 Billed Treatment Time 1 visit-FA 1 (10 min) CHUCHO HENRY May 25, 2016 10:19
--- NOTE | 2016-05-25 11:48 | Discharge Summary-Hospitalist ---
Diagnosis/Chief Complaint Date of Admission May 21, 2016 at 15:00 Date of Discharge Admission Diagnosis 1.pulmonary edema. 2.valvular heart disease with severe aortic stenosis and moderately severe mitral regurgitation. 3.secondary pulmonary artery hypertension with pressures rated at 50-55 mmHg. 4.COPD. 5.inflammatory arthritis Discharge Diagnosis Chart Review: Na+ 130 Creat 1.0 INR 1.6 on Lovenox Bridge No fever Vitals stable HR 104 snap shearer: RN states that rehab eval would be justified for pt, considering that he lives alone and is still unable to ambulate by himself with ease. Patient Interview: Pt states that he feels good today. Pt states that he has not seen Dr. Anaya for Cardiology previously. Pt states that he is still urinating regularly. Physical exam stable. Pt has been working with PT. Pt lives in assisted living, and will soon move to a new building where he will be managing his own care fully. 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 Holbrook. Reason Hospital Visit/Course The patient is a 75-year-old white male previously admitted here in March. He presented to the emergency room yesterday with a chief complaint of increasing shortness of breath and a 5 pound weight gain. He has had previous history of congestive heart failure and was admitted here in March for the same. He is seen by cardiology with MARCK Velasco. He reports that he has a valve in critical need of replacement. He has not been okayed by the [facility] for this at this time. He also reports that he has inflammatory arthritis. He has been taking tacrolimus for this for 2 years. He apparently had problems with methotrexate prior to that. At this time he also reports decreased ability to ambulate because of dyspnea and also orthopnea. He is known from an echocardiogram in February 2016 to have severe aortic stenosis with a calculated valvular area of oh 0.9 cm, moderately severe to severe mitral regurgitation, pulmonary hypertension with estimated PAP at 50-55 mmHg, and an ejection fraction of 50 percent Notes from 05/25/2016: Chart Review: Na+ 130 INR 1.8 Vitals stable Patient Interview: Pt states that he feels much better, and feels stable for DC. Pt PCP is Dr. Barba. Dr. Holbrook discusses home health options with pt. Pt is agreeable with this plan. Pt lives in [facility] currently, no longer in [place]. Pt uses [facility] pharmacy. Physical exam stable. Pt reports normal BMs. Pt wears continuous O2 at home. Pt requests pain pills for if needed upon DC. no fever vital signs stable, pleasant, improved Regular rate and rhythm rhythm murmur Clear to auscultation bilaterally Plan: DC with Hydrocodone DC with [facility] home health Scribed by Yony Arboleda under the direct supervision of Dr. Holbrook. Hospital course: Patient had a lengthy hospital course he was hospitalized given IV diuresis and cardiology consultation provided expertise with anticoagulation and monitoring labs. Overall he needs a valve replaced and we will support this patient and any possible means he may have but long-term prognosis is poor if he goes without a valve replacement in the near future. Home health was ordered under Dr. Barba his primary care provider and will monitor closely in the meantime. Discharge Summary Discharge Physical Examination Allergies: Coded Allergies: Penicillins (Verified Allergy, Unknown, 03/01/16) cephalexin (Verified Allergy, Unknown, 03/01/16) ciprofloxacin (Verified Allergy, Unknown, 03/01/16) methotrexate (Verified Allergy, Unknown, 03/01/16) Vitals & I&Os Vital Signs Date Time Temp Pulse Resp B/P Pulse Ox O2 Delivery O2 Flow Rate FiO2 05/25/16 12:00 98.3 106 16 101/56 97 Nasal Cannula 3.00 Hospital Course Labs (last 24 hrs) Laboratory Tests 05/25/16 05:09: Alanine Aminotransferase (ALT/SGPT) 18, Albumin 3.5, Alkaline Phosphatase 53, Anion Gap 10, Aspartate Amino Transf (AST/SGOT) 26, BUN/Creatinine Ratio 22, Blood Urea Nitrogen 23H, Calcium Level 8.9, Carbon Dioxide Level 25, Chloride Level 95L, Creatinine 1.03, Estimat Glomerular Filtration Rate > 60, Glucose Level 115H, INR Comment 1.8H, Magnesium Level 2.0, Potassium Level 4.4, Prothrombin Time 20.9H, Sodium Level 130L, Total Bilirubin 0.4, Total Protein 6.4 Pending Labs Discharge Home Medications: Active Scripts Active Hydrocodon -Acetaminophen 5-325 (Hydrocodone/Acetaminophen) 1 Each Tablet 1 Each PO Q4H PRN Metoprolol Succinate 50 Mg Tab.er.24h 50 Mg PO DAILY Digox (Digoxin) 250 Mcg Tablet 0.25 Mg PO DAILY Reported [Vitamin D3] 1 Cap PO BID Coumadin (Warfarin Sodium) 2.5 Mg Tablet 2.5 Mg PO SUTH TAKES 1/2 OF A (5 MG) TABLET Coumadin (Warfarin Sodium) 5 Mg Tablet 5 Mg PO UD TAKES ON MON, TU, WED, FRI, SAT Complete Multi 50+ Tablet (Multivit-Min/FA/Lycopene/Lut) 1 Each Tablet 1 Tab PO DAILY Diabetic Tussin Dm Max-Str Liq (Guaifenesin/Dextromethorphan) 118 Ml Liquid 5 Ml PO DAILY PRN Glucosamine Chondroit MSM Tab (Glucosamine/MSM/Chondroitin A) 1 Each Tablet 2 Tab PO DAILY Calcium 600 + Vit D 800 Tab (Calcium Carbonate/Vitamin D3) 1 Each Tablet 1 Tab PO BID Acetaminophen ER (Acetaminophen) 650 Mg Tablet.er 1,300 Mg PO BID PRN TAKES 2 (650 MG) TABLETS Aldactone (Spironolactone) 25 Mg Tablet 25 Mg PO BID Vitamin B Complex 1 Each Capsule 1 Cap PO DAILY Spiriva Respimat (Tiotropium [place]) 4 Gm Mist.inhal 2 Puff IH DAILY Flomax (Tamsulosin HCl) 0.4 Mg Cap 0.4 Mg PO HS Tacrolimus 1 Mg Capsule 1 Mg PO DAILY Sulfasalazine 500 Mg Tablet 1,000 Mg PO BID LAST FILLED 04/14/16 #120 ([facility]) Loratadine 10 Mg Tablet 10 Mg PO DAILY Furosemide 40 Mg Tablet 40 Mg PO BID Folic Acid 1 Mg Tablet 1 Mg PO DAILY Fish Oil 1,000 mg Capsule ([place] 3 Polyunsat Fatty Acids) 1,000 Mg Cap 1,000 Mg PO DAILY Finasteride 5 Mg Tablet 5 Mg PO HS Co Q-10 100 mg Softgel (Ubidecarenone/Vit E Acetate) 1 Each Capsule 100 Mg PO DAILY Symbicort 160-4.5 Mcg Inhaler (Budesonide/Formoterol Fumarate) 10.2 Gm Hfa.aer.ad 2 Puff IH BID Atorvastatin Calcium 80 Mg Tablet 80 Mg PO HS Aspirin EC (Aspirin) 81 Mg Tablet.dr 81 Mg PO HS Vitamin C (Ascorbate Calcium) 500 Mg Tablet 500 Mg PO DAILY Alendronate Sodium 70 Mg Tablet 70 Mg PO MEIER LAST FILLED 11/05/15 #12 Proventil Hfa (Albuterol Sulfate) 6.7 Gm Hfa.aer.ad 2 Puff IH BID Instructions to patient/family Please see electonic discharge instructions given to patient. Clinical Quality Measures DVT/VTE Risk/Contraindication: Risk Factor Score Per Nursin RFS Level Per Nursing on Admit: 4+=Very High Copy Copies To 1: DREA BARBA MINDI DO May 25, 2016 11:48
[2016-05-25] MEDS ORDERED: HYDR-3812 PO (11:57)
--- NOTE | 2016-05-25 11:59 | Discharge Inst-Home Health ---
Discharge Inst-to Home Health Patient Instructions Patient Instructions/FollowUp: Dr Barba in [address] Espinosa as scheduled Patient Problems: CHF Valvular heart disease severe RA Goal: Improve strength VIA [place], [place] DISCHARGE ORDERS Allergies: Coded Allergies: Penicillins (Verified Allergy, Unknown, 03/01/16) cephalexin (Verified Allergy, Unknown, 03/01/16) ciprofloxacin (Verified Allergy, Unknown, 03/01/16) methotrexate (Verified Allergy, Unknown, 03/01/16) Height (Feet): 5 Height (Inches): 2.00 Weight (Pounds): 198 Weight (Ounces): 1.0 Home Health Need/Face to Face Reason Pt Homebound weakness, CHF I Have Seen Pt [id number]: Yes Date of Face to Face: May 25, 2016 Discharged To: Home Diagnosis/Conditions HH Order: med administration Monitor INR Consult/Follow Up/New Order *I certify that based on my findings, the following services are medically necessary Home Health Services: Services: Nursing Services, Route Sales Delivery Driver-Evaluate & Treat, Physical Therapy-Evaluate & Treat My clinical findings support the need for the above services; see Diagnosis. Daily Activity as Tolerated: Yes Discharge Medications: New, Converted, or Re-newed RX: RX on Chart I certify that this patient is under my care and that I, a nurse practitioner or a physician; a assistant men's soccer coach working with me, had a face to face encounter that - meets the physician face to face encounter requirements with this patient as dated. BUCK ARMENDARIZ DO May 25, 2016 11:59
[2016-05-25 12:00] VITALS: BP 101/56
== END 2016-05-25 13:40 | disposition home health service (06) | DRG 190 ==
LOC: EDUNIT# 14:06 → ER 14:07 → 4TH 15:00
PROVIDERS: ADMIT Internal Medicine; ATTEND Internal Medicine
DX: J44.1 Chronic obstructive pulmonary disease with (acute) exacerbation (principal); I50.43 Acute on chronic combined systolic (congestive) and diastolic (congestive) heart failure; I08.0 Rheumatic disorders of both mitral and aortic valves; E22.2 Syndrome of inappropriate secretion of antidiuretic hormone; I48.2 Chronic atrial fibrillation; E66.2 Morbid (severe) obesity with alveolar hypoventilation; Z68.37 Body mass index [BMI] 37.0-37.9, adult; I13.0 Hypertensive heart and chronic kidney disease with heart failure and stage 1 through stage 4 chronic kidney disease, or unspecified chronic kidney disease; M06.9 Rheumatoid arthritis, unspecified; E78.5 Hyperlipidemia, unspecified; E78.00 Pure hypercholesterolemia, unspecified; I27.2 Other secondary pulmonary hypertension; N18.2 Chronic kidney disease, stage 2 (mild); Z79.01 Long term (current) use of anticoagulants; Z87.891 Personal history of nicotine dependence; K21.9 Gastro-esophageal reflux disease without esophagitis; K59.09 Other constipation; M19.90 Unspecified osteoarthritis, unspecified site; F32.9 Major depressive disorder, single episode, unspecified; I65.23 Occlusion and stenosis of bilateral carotid arteries
CPT/HCPCS: 36415; 71010; 80048; 80053; 80061; 83735; 83874; 83880; 84484; 85025; 85379; 85610; 85730; 93005; 93041; 94640; 94760

== ENCOUNTER 2016-09-16 14:13 | Inpatient (IN) | payer OTHER ==
[~2016-09-16] VITALS: Ht 157.5 cm; Wt 85.7 kg
[~2016-09-16 14:13] MED LIST changes: +DIGO250T15 PO; +HYDR-3812 PO; +METO-370 PO; +VITAMIN D3 PO; +WARF2.5T PO; +WARF5TAB PO
[2016-09-16 16:36] VITALS: BP 138/73
[2016-09-16 18:09] VITALS: BP 102/71
[2016-09-16 18:48] VITALS: BP 100/66
[2016-09-16 19:30] VITALS: BP 100/66
[2016-09-16] MEDS: BUMETANIDE 1 MG (BUMEX) TAB PO SCH (20:28)
[2016-09-16] MEDS: guaiFENesin (MUCINEX) 600 MG TAB PO SCH (20:28)
[2016-09-16] MEDS: ATORVASTATIN 80 MG (LIPITOR) TABLET PO SCH (20:28)
[2016-09-16] MEDS: PANTOPRAZOLE 40 MG (PROTONIX) TAB PO SCH (20:28)
[2016-09-16] MEDS: traZODone 50 MG (DESYREL) TAB PO SCH (20:29)
[2016-09-16] MEDS: ALFUZOSIN HCL 10 MG TAB (UROXATRAL) PO SCH (20:29)
[2016-09-16] MEDS: sulfaSALAzine 500 MG (AZULFIDINE) TAB PO SCH (20:29)
[2016-09-16] MEDS: SPIRONOLACTONE 25 MG (ALDACTONE) TAB PO SCH (20:30)
[2016-09-16] MEDS: ACETAMINOPHEN 325 MG TABLET/CAPLET (TYLENOL) PO PRN (20:30)
[2016-09-16] MEDS: inSUlin DETERMIR 1 UNIT/0.01 ML (LEVEMIR) CHARGE PER UNIT SQ SCH (21:37)
[2016-09-16] MEDS: inSUlin (REGULAR) HUMAN 1 UNIT/0.01 ML (CHARGE PER UNIT) SC SCH (21:37)
[2016-09-17] MEDS: BUMETANIDE 1 MG (BUMEX) TAB PO SCH ×5 (00:23→23:13)
[2016-09-17 05:15] LABS: BASOPHILS % (AUTO) 0 % (0-10); EOSINOPHILS # (AUTO) 0.1 10^3/uL (0.0-0.3); EOSINOPHILS % (AUTO) 2 % (0-10); LYMPHOCYTES # (AUTO) 0.8 X 10^3 (1.0-4.0); LYMPHOCYTES % (AUTO) 12 % (12-44); MEAN CORPUSCULAR HEMOGLOBIN 30 PG (25-34); MEAN CORPUSCULAR HGB CONC 31 G/DL (32-36); MEAN CORPUSCULAR VOLUME 96 FL (80-99); MEAN PLATELET VOLUME 10.5 FL (7.4-10.4); MONOCYTES # (AUTO) 0.4 X 10^3 (0.0-1.0); MONOCYTES % (AUTO) 7 % (0-12); NEUTROPHILS # (AUTO) 5.2 X 10^3 (1.8-7.8); NEUTROPHILS % (AUTO) 80 % (42-75); PLATELET COUNT 57 10^3/uL (130-400); RED BLOOD COUNT 2.66 10^6/uL (4.35-5.85); RED CELL DISTRIBUTION WIDTH 17.6 % (10.0-14.5); WHITE BLOOD COUNT 6.6 10^3/uL (4.3-11.0)
[2016-09-17 05:35] VITALS: BP 99/52
[2016-09-17 05:45] LABS: ALANINE AMINOTRANSFERASE 64 U/L (0-55); ALBUMIN 4.1 GM/DL (3.2-4.5); ANION GAP 15 MMOL/L (5-14); ASPARTATE AMINO TRANSFERASE 35 U/L (5-34); BILIRUBIN,TOTAL 2.5 MG/DL (0.1-1.0); BLOOD UREA NITROGEN 35 MG/DL (7-18); BUN/CREATININE RATIO 41; CALCIUM 9.5 MG/DL (8.5-10.1); CARBON DIOXIDE 31 MMOL/L (21-32); CHLORIDE 91 MMOL/L (98-107); CREATININE SERUM 0.85 MG/DL (0.60-1.30); GFR ESTIMATED > 60; GLUCOSE 97 MG/DL (70-105); POTASSIUM 3.4 MMOL/L (3.6-5.0); SODIUM 137 MMOL/L (135-145)
[2016-09-17] MEDS: inSUlin (REGULAR) HUMAN 1 UNIT/0.01 ML (CHARGE PER UNIT) SC SCH ×4 (05:51→20:32)
[2016-09-17] MEDS: PANTOPRAZOLE 40 MG (PROTONIX) TAB PO SCH ×2 (06:08→16:34)
[2016-09-17] MEDS: predniSONE 20 MG TAB PO SCH (06:09)
[2016-09-17] MEDS: KCL 20 MEQ TAB (K-DUR) PO SCH (06:09)
[2016-09-17 08:53] VITALS: BP 117/64
[2016-09-17] MEDS: SPIRONOLACTONE 25 MG (ALDACTONE) TAB PO SCH (08:54)
[2016-09-17] MEDS: sulfaSALAzine 500 MG (AZULFIDINE) TAB PO SCH ×2 (08:54→17:33)
[2016-09-17] MEDS: LORATADINE (CLARITIN) 10 MG TAB PO SCH (08:54)
[2016-09-17] MEDS: FINASTERIDE (PROSCAR) 5 MG TAB PO SCH (08:54)
[2016-09-17] MEDS: DIGOXIN 0.25 MG (LANOXIN) TAB PO SCH (08:55)
[2016-09-17] MEDS: meTOproloL SUCCINATE 50 MG (TOPROL XL) TAB PO SCH (08:55)
[2016-09-17] MEDS: ASPIRIN E.C. 81 MG (ECOTRIN) TAB PO SCH (08:55)
[2016-09-17] MEDS: guaiFENesin (MUCINEX) 600 MG TAB PO SCH ×2 (08:55→20:37)
[2016-09-17] MEDS: FLUTICASONE NASAL SPRAY (FLONASE) 16 GM BTL NS SCH (09:08)
--- NOTE | 2016-09-17 09:26 | Occupational Therapy Eval ---
OT Evaluation-General/PLF Medical Diagnosis Admission Date Sep 16, 2016 at 16:40 Medical Diagnosis: s/p CABG x1, AVR, MVR Onset Date: August 10, 2016 Therapy Diagnosis Therapy Diagnosis: decr self care, decr activ yojana, decr funct mobility, weakness Height/Weight Height (Feet): 5 Height (Inches): 2.00 Weight (Pounds): 229 Weight (Ounces): 1.0 Precautions Precautions/Isolations: Fall Prevention, Standard Precautions Safety Interventions: None Referral Physician: Bryce Referral Reason: Evaluation/Treatment Medical History Pertinent Medical History: Atrial Fib, Arthritis, COPD, GERD, HTN, Rheumatoid Arthritis Additional Medical History Hx pulmonary edema, obesity, osteoporosis Current History Post op had acute blood loss, anemeia, leukocytosis, acute respiratory failure with pulmonary edema Reviewed History: Yes Social History Home: Assisted Living ([facility]) Current Living Status: Alone Entry Into Home: Level Entry ADL-Prior Level of Function ADL PLOF Comments Pt reported that prior to his surgery he was able to manage all of his basic ADLs. He lived alone with is dog and still drove. 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 He walked independently but has a FWW. he used O2 at home 24/ at 2L/min and was limited to walking about 100 feet at a time due to SOB. DME/Equipment: Grab Bars, Shower, Shower Hose Call Center Representative, Tall Toilet Occupation: retired shuttle truck driver Drive Self: Yes Leisure Interests: his dog! OT Current Status Subjective Pt seen in room, seated EOB, agreeable to OT. Pain reported 0/10. O2 in place Appearance Alert, cooperative Mental Status/Objective Patient Orientation: Person, Place, Situation Attachments: Oxygen Current Glasses/Contacts: Yes Dentures/Partials: Yes (but he hasn't worn them since being in the hospital because his gums are swollen) Hand Dominance: Right Upper Extremity ROM Grossly WFL. Shoulders limited to about 90 degrees active. Arthritic deformities in hands Upper Extremity Coordination Impaired due to tremors Upper Extremity Strength grossly 4/5 bilat. Pt reported tremors in hands since hospitalization ADL-Treatment ADL-Current Pt reported mod-max assist sit to stand EOB with FWW Functional Kinney Measure 0=Not Assessed/NA 4=Minimal Assistance 1=Total Assistance 5=Supervision or Setup 2=Maximal Assistance 6=Modified Kinney 3=Moderate Assistance 7=Complete IndependenceIRFPAI Quality Coding Scale 6 Independent with activity with or without an assistive device 5 Patient requires set up or clean up by helper. Patient completes activity by themselves 4 Supervision or touching assist (CGA). Cowen provide cues , steadying assist 3 The helper provides less than half the effort to complete the activity 2 The helper provides more than half the effort to complete the activity 1 Dependent. The helper does all the effort to complete an activity 7 Patient refused to complete or attempt activity 9 The patient did not perform the activity before the current illness or injury 88 Not attempted due to Medical conditions or safety concerns Toileting (FIM): 1 (One person to manage standing with FWW and one person to do hygiene and clothing. BSC beside bed) Toileting Hygiene (QC): 1 Toilet/Commode Transfer (FIM): 4 (Min assist on and off BSC but cues for hand placement, walker placement. WOuld be unable to get off taller toilet with only grab bars) Toilet Transfer (QC): 3 Pt was left up in recliner, O2 in place, all needs met. Education OT Patient Education: Modified ADL techniques, Purpose of tx/functional activities, Rehab process, Transfer techniques, Use of adapted equipment Teaching Recipient: Patient Teaching Methods: Demonstration, Discussion Response to Teaching: Verbalize Understanding, Return Demonstration, Reinforcement Needed OT Short Term Goals Short Term Goals Time Frame: Sep 30, 2016 Grooming(FIM): 5 Toileting(FIM): 4 Toilet/Commode Transfer(FIM): 5 Additional Short Term Goals: 2-Verbalize Understanding, 3-ImproveStrength/Raheem 1=Demonstrate adherence to instructed precautions during ADL tasks. 2=Patient will verbalize/demonstrate understanding of assistive devices/ modifications for ADL. 3=Patient will improve strength/tolerance for activity to enable patient to perform ADL's. OT Skilled Nursing Goals Skilled Nursing Goals Time Frame: Oct 14, 2016 Eating (FIM): 6 Eating (QC): 6 Groomin Oral Hygiene (QC): 6 Bathing(FIM): 6 Shower/Bathe Self (QC): 6 Upper Body Dressing(FIM): 6 Upper Body Dressing (QC): 6 Lower Body Dressing(FIM): 6 Lower Body Dressing (QC): 6 On/Off Footwear (QC): 6 Toileting(FIM): 6 Toileting Hygiene (QC): 6 Transfers (B,C,W/C) (FIM): 6 Toilet/Commode Transfer(FIM): 6 Toilet/Commode Transfer (QC): 6 Shower Transfer(FIM): 6 Additional Goals: 2-Verbalize Understanding, 3-ImproveStrength/Raheem 1=Demonstrate adherence to instructed precautions during ADL tasks. 2=Patient will verbalize/demonstrate understanding of assistive devices/ modifications for ADL. 3=Patient will improve strength/tolerance for activity to enable patient to perform ADL's. OT Education/Plan Problem List/Assessment Assessment: Decreased Activ Tolerance, Decreased UE Strength, Dependent Transfers, Impaired Bed Mobility, Impaired Coordination, Impaired Funct Balance , Impaired Self-Care Skills Pt would benefit from skilled OT to increase his independence in basic ADLs to allow him to safely return to his home at [place] and decrease caregiver burden Discharge Recommendations Plan/Recommendations: Continue POC Barriers to Progress decreased activity tolerance Target Placement home ([place]) Treatment Plan/Plan of Care Treatment,Training & Education: Yes Patient would benefit from OT for education, treatment and training to promote independence in ADL's, mobility, safety and/or upper extremity function for ADL' s. Plan of Care: ADL Retraining, Functional Mobility, Group Exercise/Act as Ind ( education, exercise, activity tolerance, functional activities, socialization), UE Funct Exercise/Act, UE Neuromus Re-Ed/Coord Treatment Duration: Oct 14, 2016 # of days/week 5-6 Visits Per Week: 10-11 Minutes/Day (M-F): 75-90 Minutes/Day (Sat/[place]): PRN Agreement: Yes Rehab Potential: Fair Time/GCodes Start Time: 08:30 Stop Time: 09:10 Total Time Billed (hr/min): 40 Billed Treatment Time visit, 10 minutes evaluation high complexity, 30 minutes ADL (co-tx ADL with PT due to decreased activity tolerance, with OT working on ADLs and UE and PT focusing on LE, transfers and mobility) ADAM JACK OT Sep 17, 2016 09:26
--- NOTE | 2016-09-17 09:43 | PM&R Post Admission Assessment ---
Post Admission Physician Asses The preadmission screen agrees with the post admission assessment that the patient is a good candidate for inpatient rehabilitation. The patient will have a comprehensive program of inpatient rehabilitation with a goal of maximizing level of functional independence prior to discharge home with [facility]. The patient will have PT/OT ninety minutes per day, each discipline , five days a week for gait, strengthening, conditioning, balance, ADLs, any patient/family/caregiver training as necessary. Speech therapy to do cognitive assessment and treat as indicated. Rehabilitation nursing to assist with bowel, bladder, skin, wound care, medication administration, pain management. Field Project Manager to assist with discharge planning, community reentry. SCD's for DVT prophylaxis. He appears to be well motivated to participate in three hours of therapy a day. He should be able to tolerate three hours of therapy a day from a medical and surgical standpoint. He should benefit from the three hours of therapy a day. He has a reasonable discharge plan, reasonable discharge rehabilitation goals and a supportive family. He has various comorbidities that need to be closely monitored with medications and treatments adjusted on a daily basis as needed. These include: A FIB Postopa nemia COPD-02 dependeet Hypokalemia Elevated LFTS Thrombocytopenia DM Arthritis HX of agent orange exposure Barriers to discharge for this patient who had been independent prior to this are for him to be modified independent to supervision for ADLs and mobility skills prior to discharge home with [facility], so as to lessen the burden of the caregivers. Risks for this patient include: 1. Fall 2. Fracture 3. DVT 4. Pulmonary embolism 5. Wound infection 6. Skin breakdown 7. Contractures 8. Poorly controlled pain 9. Urinary retention 10. UTI 11. Respiratory infection 12. Aspiration 13...Poorly controlled A FIB 14...Worsening anemia and thrombocytopenia 15. Recurrent chf 16. Resp failure Estimated Length of Stay: 17 days Prognosis: Rehab prognosis appears good for goal of discharge home with [facility] modified independent to supervision for ADLs and mobility NEGRITO Aleman MD Sep 17, 2016 09:43
[2016-09-17] MEDS ORDERED: DOCUSATE SODIUM 100 MG (COLACE) CAP PO ONE (10:15)
--- NOTE | 2016-09-17 11:03 | HISTORY AND PHYSICAL ---
DATE OF ADMISSION: 09/16/2016 CHIEF COMPLAINT: Difficulty with walking. HISTORY OF PRESENT ILLNESS: The patient is a 76-year-old male who was admitted to [facility] on 08/10/2016 for CABG x1 with left endovascular harvest and aortic valve replacement tissue, mitral valve repair, CryoMaze procedure on 08/10, Dr. Zafar. The patient had various medical complications postoperatively. He had difficulty with bleeding, had volume overload and this was treated. He was in atrial fibrillation and medications were adjusted. His hemoglobin dropped is 7.5 on postoperative day 12. He had a transfusion of packed red blood cells. He remained in atrial fibrillation, but his rate was controlled. The patient had bimal hematuria when his Chou catheter was accidentally dislodged on day 16. He was seen by urology. Chou was reinserted. He did require subsequent transfusion of packed red blood cells again. His platelet count was diminished at 41,000 on postoperative day 31. This was monitored. It was felt to be possibly related to IV antibiotics and they were discontinued. The patient is now referred to Inpatient Rehabilitation Unit at [facility] for ongoing therapies. pRIOR LEVEL OF FUNCTION: He lives in [place]. He is a recent . He had been independent living alone prior to this. His PCP is Dr. Barba. He has seen Dr. Espinosa of cardiology in the past. cURRENTLY HAS REQUIRES ASSISANTACE FOR HIS MOBILITY AND ADL SKILLS hE HAS STERNOTOMY PRECAUTIONS pLEASE SEE ptAND ot EVALS FOR FURTHER DETAILS PAST MEDICAL HISTORY: Coronary artery disease. PAST SURGICAL HISTORY: As per above. He has had a partial left nephrectomy for cancer. ALLERGIES: 1. penicillin 2. cephalexin 3. Cipro 4. methotrexate FAMILY HISTORY: Noncontributory. SOCIAL HISTORY: Essentially as per above. He is retired. He is 100 percent service connected for [employer]. He is a [place] war . His [employer] medical insurance has approved his stay on the rehab unit. REVIEW OF SYSTEMS: Ten-point review of systems significant for shortness of breath, irregular heartbeat. MEDICATIONS: 1. ASA 81 mg p.o. daily 2. Digoxin 0.25 mg p.o. daily 3. Proscar 5 mg p.o. daily 4. Flonase one spray each nostril daily 5. loratadine 10 mg p.o. daily 6. Toprol 50 mg p.o. daily 7. KCL 20 mEq p.o. daily 8. Prednisone 20 mg p.o. daily 9. Lipitor 80 mg p.o. at bedtime 10. Mucinex 600 mg p.o. b.i.d. 11. spironolactone 25 mg p.o. b.i.d. 12. Levemir insulin 10 units subcutaneous at bedtime 13. Trazodone 75 mg p.o. at bedtime 14. Sulfasalazine 1500 mg p.o. b.i.d. 15. Uroxatral 10 mg p.o. daily 16. Bumex 2 mg p.o. q.6 hours 17. Proventil q.4 hours p.r.n. dyspnea 18. Protonix 40 mg p.o. b.i.d. 19. Sliding scale insulin regimen A 20. Tylenol 650 mg p.o. q.4 hours p.r.n. pain LABORATORY: His H\T\H today 11/12, WBC 5.6, platelet count 57,000. Glucometer readings yesterday 133 and 202. Chemistry today, sodium 137, potassium 3.4 and chloride 91, total bilirubin 2.5, AST 35, ALT 64. PHYSICAL EXAMINATION: Significant for a pleasant, obese male, lying in bed, alert and oriented no acute distress with nasal cannula in place. VITAL SIGNS: He is afebrile. Pulse is 88 irregular, blood pressure 117/64. O2 by nasal cannula 2 liters per minute with a sat of 96%. HEENT: Vision, speech, and hearing, grossly intact. No oral lesion is noted. O2 by nasal cannula in place. NECK: Supple without mass. HEART: Irregular rhythm. LUNGS: Clear. ABDOMEN: Soft, nontender. Bowel sounds present. EXTREMITIES: Trace edema both ankles. No calf tenderness. MUSCULOSKELETAL: The patient has functional active range of motion in all 4 extremities. NEUROLOGIC: Cognition grossly intact. Sensation grossly intact to touch. STRENGTH: He has generalized weakness. SKIN: The incision is healing well. IMPRESSION: 1. Ambulatory dysfunction secondary to coronary artery disease, valvular heart disease, status post CABG x1 with left endovascular harvest and aortic valve replacement tissue mitral valve repair, CryoMaze procedure on 08/10/2016, Dr. Zafar. 2. Postoperative anemia status post transfusion. 3. Thrombocytopenia. 4. Respiratory insufficiency, O2 dependent. 5. Hypokalemia replaced. 6. [id number] diabetes mellitus. 7. Elevated liver function tests. PLAN: The patient will have a comprehensive program of inpatient rehabilitation with a goal of maximizing level of functional independence prior to discharge home with home health care. The patient will have PT/OT 90 minutes per day, each discipline, 5 days week for gait strengthening, conditioning, balance, ADLs, energy conservation, any patient/family/caregiver training necessary, any adaptive equipment and training necessary. Speech therapy to do cognitive assessment and treat as indicated. Rehabilitation nursing to assist with bowel, bladder, skin, wound care, pain management. guest services assistant to assist with discharge planning, community reentry. Replace potassium, hold aspirin due to thrombocytopenia. Consider hematology consult as necessary. Consult Dr. Holbrook, hospitalist who has seen then patient before. Consult Dr. Espinosa as necessary. Respiratory therapy to assist with O2 administration, monitoring O2 sats and respiratory treatment administration. Therapy with cardiac and fall precautions, sternotomy precautions. ESTIMATED LENGTH OF STAY: 2 weeks. PROGNOSIS: Rehab prognosis appears good for goal of discharging home with home health care modified independent to supervision for ADLs and mobility skills. DIET: Heart healthy for now. Monitor Accu-Cheks and adjust medications as necessary. CODE STATUS: Full code. SCDs for DVT prophylaxis, telemetry. Job ID: [id number] Dictated Date: 09/17/2016 09:32:56 Water And Fire Technician Date: 09/17/2016 10:30:10/theodore MAZARIEGOS
--- NOTE | 2016-09-17 11:09 | Occupational Ther Daily Note ---
OT Current Status-Daily Note Subjective Pt alert, sitting in recliner. Pt agreed to therapy. Pt c/o being fatigued. Mental Status/Objective Patient Orientation: Person, Place, Time, Situation Functional [place] Measure 0=Not Assessed/NA 4=Minimal Assistance 1=Total Assistance 5=Supervision or Setup 2=Maximal Assistance 6=Modified [place] 3=Moderate Assistance 7=Complete [place] ADL-Treatment Pt unable to complete a shower at this time to decrease activity tolerance. Pt fatigues quickly and requires lengthy recovery breaks. After therapy, pt sitting in recliner with call light/phone in reach. Nrsg notified of nasal spray in pt's possession. [place] placed in locked prototype engineer room. All needs met in room. Functional [place] Measure 0=Not Assessed/NA 4=Minimal Assistance 1=Total Assistance 5=Supervision or Setup 2=Maximal Assistance 6=Modified [place] 3=Moderate Assistance 7=Complete IndependenceIRFPAI Quality Coding Scale 6 Independent with activity with or without an assistive device 5 Patient requires set up or clean up by helper. Patient completes activity by themselves 4 Supervision or touching assist (CGA). [place] provide cues , steadying assist 3 The helper provides less than half the effort to complete the activity 2 The helper provides more than half the effort to complete the activity 1 Dependent. The helper does all the effort to complete an activity 7 Patient refused to complete or attempt activity 9 The patient did not perform the activity before the current illness or injury 88 Not attempted due to Medical conditions or safety concerns Grooming (FIM): 5 (Pt has no teeth and dentures do not fit so pt does not wear them. Pt is able to use oral sponge to cleanse mouth, reach to comb hair. Given a cleansing clothe pt is able to wash hands and face.) Oral Hygiene (QC): 5 (Pt has no teeth and dentures do not fit so pt does not wear them. Pt is able to use oral sponge to cleanse mouth.) Bathing (FIM): 3 (Sponge bath completed. Pt takes increased time to complete bathing/dressing due to decreased activity tolerance. After set up, pt complete upper body bathing, assist to stand and cleanse buttocks/susan area, unable to cleanse lower legs and feet at this time. Pt took multiple recovery breaks throughout ADLs.) Bathing Location: L Arm, R Arm, L Upper Leg, R Upper Leg, Chest, Abdomen, Buttocks, Perineal Area Shower/Bathe Self (QC): 3 (Sponge bath completed. Pt takes increased time to complete bathing/dressing due to decreased activity tolerance. After set up, pt complete upper body bathing, assist to stand and cleanse buttocks/susan area, unable to cleanse lower legs and feet at this time. Pt took multiple recovery breaks throughout ADLs.) Lower Body Dressing (QC): 7 (Pt stated that he had Lasix and will be using the urinal a lot so he didn't want to put pants on at this time. He also stated that he was to tired to attempt to don lower body clothing.) On/Off Footwear (QC): 1 (Pt unable to reach feet so assist needed to don/doff footwear.) OT Short Term Goals Short Term Goals Time Frame: Sep 30, 2016 Grooming(FIM): 5 Toileting(FIM): 4 Toilet/Commode Transfer(FIM): 5 Additional Short Term Goals: 2-Verbalize Understanding, 3-ImproveStrength/Raheem 1=Demonstrate adherence to instructed precautions during ADL tasks. 2=Patient will verbalize/demonstrate understanding of assistive devices/ modifications for ADL. 3=Patient will improve strength/tolerance for activity to enable patient to perform ADL's. 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 2=Patient will verbalize/demonstrate understanding of assistive devices/ modifications for ADL. 3=Patient will improve strength/tolerance for activity to enable patient to perform ADL's. OT Education/Plan Problem List/Assessment Pt would benefit from skilled OT to increase his independence in basic ADLs to allow him to safely return to his home at [place] and decrease caregiver burden Discharge Recommendations Plan/Recommendations: Continue POC Treatment Plan/Plan of Care Patient would benefit from OT for education, treatment and training to promote independence in ADL's, mobility, safety and/or upper extremity function for ADL' s. Plan of Care: ADL Retraining, Functional Mobility, Group Exercise/Act as Ind ( education, exercise, activity tolerance, functional activities, socialization), UE Funct Exercise/Act, UE Neuromus Re-Ed/Coord Treatment Duration: Oct 14, 2016 Visits Per Week: 10-11 Minutes/Day (M-F): 75-90 Minutes/Day (Sat/[place]): PRN Agreement: Yes Rehab Potential: Fair Time/GCodes Start Time: 09:45 Stop Time: 10:45 Total Time Billed (hr/min): 60 Billed Treatment Time 1 visit-ADL 4 (60 min) CHUCHO HENRY Sep 17, 2016 11:09
--- NOTE | 2016-09-17 12:19 | Consultation-Cardiology ---
HPI-Cardiology Cardiology Consultation: Date of Consultation 09/17/16 Date of Admission Attending Physician Sander Wu MD Admitting Physician Wayne Barba DO Consulting Physician Emy BARAHONA MD HPI: Time Seen by Provider: 12:19 Chief Complaint: Chest pain This is a patient of Dr. Espinosa. He was transferred to [facility] for mitral valve repair, aortic valve replacement, cryo-maze, and coronary bypass. Postoperatively patient had significant anemia and fluid accumulation. Aggressive diuresis with 29 pound weight loss. He was transferred here for rehabilitation. Complained of chest pain yesterday EKG showed atrial fibrillation with no acute ST-T wave abnormalities. Troponin was negative. Pain subsided with no further chest pain. Review of Systems-Cardiology Review of Systems Date Seen by Provider: Sep 17, 2016 Time Seen by Provider: 12:30 Constitutional: No As described under HPI, No no symptoms reported, No chills, No fever, No lightheadedness, No malaise, No tiredness, No weight loss, No weight gain, No other Eyes: No As described under HPI, No no symptoms reported, No blindness, No blurred vision, No contact lenses, No drainage, No decreased acuity, No foreign body sensation, No glasses, No inflammation, No pain, No photophobia, No previous injury, No shadows, No tunnel vision, No other, No vision change Ears/Nose/Throat: No As described under HPI, No no symptoms reported, No chronic hearing loss, No epistaxis, No ear discharge, No ear pain, No loose teeth, No mouth pain, No mouth swelling, No nasal drainage, No nose pain, No recent hearing loss, No throat pain, No throat swelling, No ulcerations, No other Respiratory: No no symptoms reported, No As described under HPI, No cough, No orthopnea, No shortness of breath, No SOB with excertion, No SOB at rest, No stridor, No wheezing, No other Cardiovascular: No no symptoms reported, No As described under HPI, No chest pain, edema, No irregular heart rate, No lightheadedness, No palpitations, No syncope, No other Gastrointestinal: No no symptoms reported, No As described under HPI, abdomen distended, No abdominal pain, No blood streaked bowels, No constipation, No diarrhea, No difficulty swallowing, No nausea, No poor appetite, No poor fluid intake, No rectal bleeding, No vomiting, No other, No nausea/vomiting/diarrhea, No stool coloration changes Genitourinary: No no symptoms reported, No As described under HPI, No burning, No dysuria, No discharge, No frequency, No flank pain, No hematuria, No incontinence, No pain, No urgency, No other, No urine frequency changes, No urine coloration changes Musculoskeletal: No no symptoms reported, No As describe under HPI, No back pain, No gout, No joint pain, No joint swelling, No muscle pain, No muscle stiffness, No neck pain, No other Skin: No no symptoms reported, No As described under HPI, No change in color, No change in hair/nails, No dryness, No lesions, No lumps, No rash, No other, No skin related problems, No ulcerations, No rash on exposed areas, No ulcerations on exposed areas Psychiatric/Neurological: No As described under HPI, No anxiety, No depression , No emotional problems, No focal weakness, No headache, No no symptoms reported , No numbness, No other, No pre-existing deficit, No seizure, No syncope, No tingling, No tremors, No weakness Hematologic: anemia [id number]-Mzprup-Mzyjka Hx Patient Social History Alcohol Use: Denies Use Recreational Drug Use: No Smoking Status: Former Smoker Type Used: Cigarettes Recent Foreign Travel: No Recent Infectious Disease Expo: No Hospitalization with Isolation: Denies Physical Abuse Screen: No Sexual Abuse: No Immunizations Up To Date Date of Pneumonia Vaccine: Mar 01, 2015 Date of Influenza Vaccine: Dec 01, 2015 Past Medical History PMH As described under Assessment. Family Medical History Family History: Patient reports no known family medical history. Allergies and Home Medications Allergies Coded Allergies: Penicillins (Verified Allergy, Unknown, 03/01/16) cephalexin (Verified Allergy, Unknown, 03/01/16) ciprofloxacin (Verified Allergy, Unknown, 03/01/16) methotrexate (Verified Allergy, Unknown, 03/01/16) Home Medications Acetaminophen 650 Mg Tablet.er, 1,300 MG PO BID PRN for PAIN, (Reported) TAKES 2 (650 MG) TABLETS Albuterol Sulfate 6.7 Gm Hfa.aer.ad, 2 PUFF IH BID, (Reported) Alendronate Sodium 70 Mg Tablet, 70 MG PO [place], (Reported) LAST FILLED 11/05/15 #12 Ascorbate Calcium 500 Mg Tablet, 500 MG PO DAILY, (Reported) Aspirin 81 Mg Tablet.dr, 81 MG PO HS, (Reported) Atorvastatin Calcium 80 Mg Tablet, 80 MG PO HS, (Reported) Budesonide/Formoterol Fumarate 10.2 Gm Hfa.aer.ad, 2 PUFF IH BID, (Reported) Calcium Carbonate/Vitamin D3 1 Each Tablet, 1 TAB PO BID, (Reported) Digoxin 250 Mcg Tablet, 0.25 MG PO DAILY, #30 Ref 3 Prescribed by: JOSH SNEED on 05/25/16 0937 Finasteride 5 Mg Tablet, 5 MG PO HS, (Reported) Folic Acid 1 Mg Tablet, 1 MG PO DAILY, (Reported) Furosemide 40 Mg Tablet, 40 MG PO BID, (Reported) Glucosamine/MSM/Chondroitin A 1 Each Tablet, 2 TAB PO DAILY, (Reported) Guaifenesin/Dextromethorphan 118 Ml Liquid, 5 ML PO DAILY PRN for CONGESTION, ( Reported) Hydrocodone/Acetaminophen 1 Each Tablet, 1 EACH PO Q4H PRN for PAIN, #15 Prescribed by: BUCK ARMENDARIZ on 05/25/16 1157 Loratadine 10 Mg Tablet, 10 MG PO DAILY, (Reported) Metoprolol Succinate 50 Mg Tab.er.24h, 50 MG PO DAILY, #30 Ref 5 Prescribed by: JOSH SNEED on 05/25/1637 Multivit-Min/FA/Lycopene/Lut 1 Each Tablet, 1 TAB PO DAILY, (Reported) [place] 3 Polyunsat Fatty Acids 1,000 Mg Cap, 1,000 MG PO DAILY, (Reported) Spironolactone 25 Mg Tablet, 25 MG PO BID, (Reported) Sulfasalazine 500 Mg Tablet, 1,000 MG PO BID, (Reported) LAST FILLED 04/14/16 #120 ([facility]) Tacrolimus 1 Mg Capsule, 1 MG PO DAILY, (Reported) Tamsulosin HCl 0.4 Mg Cap, 0.4 MG PO HS, (Reported) Tiotropium [place] 4 Gm Mist.inhal, 2 PUFF IH DAILY, (Reported) Ubidecarenone/Vit E Acetate 1 Each Capsule, 100 MG PO DAILY, (Reported) Vitamin B Complex 1 Each Capsule, 1 CAP PO DAILY, (Reported) Warfarin Sodium 5 Mg Tablet, 5 MG PO UD, (Reported) TAKES ON MON, TU, WED, FRI, SAT Warfarin Sodium 2.5 Mg Tablet, 2.5 MG PO SuTh, (Reported) TAKES 1/2 OF A (5 MG) TABLET [Vitamin D3] , 1 CAP PO BID, (Reported) Physical Exam-Cardiology Physical Exam Vital Signs/I&O Vital Sign - Last 12Hours 09/17/16 09/17/16 09/17/16 09/17/16 01:00 05:35 07:19 08:53 Temp 98.2 Pulse 96 92 96 88 Resp 18 B/P (MAP) 99/52 117/64 Pulse Ox 96 O2 Delivery Nasal Cannula O2 Flow Rate 3.00 09/17/16 09:11 O2 Delivery Nasal Cannula O2 Flow Rate 2.00 Intake and Output 09/17/16 00:00 Intake Total 150 ml Output Total 400 ml Balance -250 ml Capillary Refill : Constitutional: No appears stated age, No AAO x 3, No apparent distress, No PERRL, No well-developed, No well-nourished, No other HEENT: No PERRL, No normal ENT inspection, No TMs normal, No pharynx normal, No scleral icterus (R), No scleral icterus (L), No pale conjunctivae (R), No pale conjunctivae (L), No photophobia, No TM abnormal (R), No TM abnormal (L), No pharyngeal erythema, No tonsillar exudate, No other, No discharge, No EOMI, No hearing is well preserved, No hard of hearing, No oral hygience is good, No ulceration, No xanthelasmas are seen Neck: No non-tender, No full range of motion, No supple, No normal inspection, No carotid bruit, No limited range of motion, No lymphadenopathy (R), No lymphadenopathy (L), No tender lateral, No tender midline, No thyromegaly, No other, No carotid pulses are 2 + bilaterally, No with good upstrokes Respiratory: No accessory muscle use, No respiratory distress, No chest tender , No chest expansion is symmetric, No chest is bilaterally symmetric, No lungs clear to percussion, No lungs clear to auscultation, No crackles, No rhonchi, No rales, No stridor, No wheezing, No pleural rub, No other Cardiovascular: irregularly irregular, S1 and S2 Gastrointestinal: No tender, No soft, No round, distended, No pulsatile mass, No organomegaly, No guarding, No rebound, No tenderness, No hernia, No mass, No audible bowel sounds, No abnormal bowel sounds, No abdominal bruits, No spleenomegaly, No other Rectal: deferred Extremities: significant edema Neurologic/Psychiatric: No cover seamer II-XII nml as tested, No no motor/sensory deficits, No alert, No normal mood/affect, No oriented x 3, No abnormal cerebellar tests, No abnormal cover seamer II-XII, No abnormal gait, No aphasia, No EOM palsy, No facial droop, No motor weakness, No sensory deficit, No depressed affect, No disoriented x 3, No other, No grossly intact, No power is 5/5 both on sides Skin: No normal color, No warm/dry, No cyanosis, No cool, No diaphoresis, No damp, No ecchymosis, No jaundice, No mottled, No pallor, No rash, No tattoos/ piercings, No ulcerations, No rash on exposed areas, No ulcerations on exposed areas, No other Data Review Labs Laboratory Tests 09/16/16 18:48: Glucometer 133H 09/16/16 20:59: Glucometer 203H 09/17/16 04:58: White Blood Count 6.6, Red Blood Count 2.66L, Hemoglobin 8.0L, Hematocrit 26L, Mean Corpuscular Volume 96, Mean Corpuscular Hemoglobin 30, Mean Corpuscular Hemoglobin Concent 31L, Red Cell Distribution Width 17.6H, Platelet Count 57L, Mean Platelet Volume 10.5H, Neutrophils (%) (Auto) 80H, Lymphocytes (%) (Auto) 12, Monocytes (%) (Auto) 7, Eosinophils (%) (Auto) 2, Basophils (%) (Auto) 0, Neutrophils # (Auto) 5.2, Lymphocytes # (Auto) 0.8L, Monocytes # (Auto) 0.4, Eosinophils # (Auto) 0.1, Basophils # (Auto) 0.0, Sodium Level 137, Potassium Level 3.4L, Chloride Level 91L, Carbon Dioxide Level 31, Anion Gap 15H, Blood Urea Nitrogen 35H, Creatinine 0.85, Estimat Glomerular Filtration Rate > 60, BUN /Creatinine Ratio 41, Glucose Level 97, Calcium Level 9.5, Total Bilirubin 2.5H , Aspartate Amino Transf (AST/SGOT) 35H, Alanine Aminotransferase (ALT/SGPT) 64H , Alkaline Phosphatase 109, Troponin I < 0.30, Total Protein 6.0L, Albumin 4.1 09/17/16 11:04: Glucometer 123H ECG Impression ECG Initial ECG Impression: Atrial Fibrillation w/RVR A/P-Cardiology Assessment/Admission Diagnosis Coronary artery disease, status post CABG, Status post-mitral valve repair, Status post-aortic valve replacement Atrial fibrillation, status post cryo maze, Anemia, Significant edema. Plan Chest pain overnight probably noncardiac. Negative EKG and cardiac enzymes. Continue current therapy which includes aspirin. Platelets are 57,000, will recommend continuing aspirin for now. Significant edema: continue bumetanide; however can decrease the dose of spironolactone to 25mg daily. Thank you for your consultation. Please call me if you have any questions. Jovana Barahona MD, FACP, FACC, FSCAI, FHRS, CCDS Interventional Cardiology Cardiac Electrophysiology Vascular Medicine and Endovascular Interventions Clinical Quality Measures DVT/VTE Risk/Contraindication: Risk Factor Score Per Nursin RFS Level Per Nursing on Admit: 4+=Very High Emy BARAHONA MD Sep 17, 2016 12:19 pm
--- NOTE | 2016-09-17 13:20 | Consultation-Hospitalist ---
HPI History of Present Illness: HPI/Chief Complaint CC: Medical management following CABG w/aortic valve replacement HPI: This is a 74yoWM clinic patient of Dr Barba'jax in [facility] that presents with s/ p uncomplicated CABG and aortic valve replacement by Dr Zafar on 08/10/16 and has since returned to IRU for recovery. RN called me with AF w/RVR and Dr Barahona graciously managed that last evening. Currently his bowels are moving and overall feeling better each and every day. Denies any pain and is using the IS and EZ-pap. Source: patient Exam Limitations: no limitations Date Seen 09/17/16 Attending Physician Sander Wu MD PCP Wayne Barba DO Referring Physician Date of Admission Sep 16, 2016 at 16:40 Home Medications & Allergies Home Medications Reviewed patient Home Medication Reconciliation Form Allergies Allergies Coded Allergies Penicillins (Verified Allergy, Unknown, 03/01/16) cephalexin (Verified Allergy, Unknown, 03/01/16) ciprofloxacin (Verified Allergy, Unknown, 03/01/16) methotrexate (Verified Allergy, Unknown, 03/01/16) Past Ufnvtaw-Udyfek-Wwthlt Hx Patient Social History Employed/Student: retired Alcohol Use: Denies Use Recreational Drug Use: No Smoking Status: Former Smoker Type Used: Cigarettes Physical Abuse Screen: No Sexual Abuse: No Recent Foreign Travel: No Contact w/other who traveled: No Recent Hopitalizations: Yes (Laron Rosa) Recent Infectious Disease Expo: No Immunizations Up To Date Date of Pneumonia Vaccine: Mar 01, 2015 Date of Influenza Vaccine: Dec 01, 2015 Seasonal Allergies Seasonal Allergies: Yes (hayfever) Surgeries HX Surgeries: Yes Surgeries: CABG, Valve Replacement Respiratory Hx Respiratory Disorders: Yes Respiratory Disorders: COPD, Pneumonia Cardiovascular Hx Cardiovascular Disorders: Yes Cardiac Disorders: Atrial Fibrillation, High Cholesterol, Hypertension, Valvular Heart Disease Neurological Hx Neurological Disorders: No Reproductive System Hx Reproductive Disorders: No Genitourinary Hx Genitourinary Disorders: Yes Genitourinary Disorders: Bladder Infection Gastrointestinal Hx Gastrointestinal Disorders: Yes Gastrointestinal Disorders: Gastroesophageal Reflux, Chronic Constipation Musculoskeletal Hx Musculoskeletal Disorders: Yes Musculoskeletal Disorders: Arthritis Endocrine Hx Endocrine Disorders: No HEENT HEENT Disorders: Cataract Loss of Vision: Bilateral Hearing Impairment: Hard of Hearing, Hearing Aide Right Cancer Hx Cancer: No Cancer: Kidney Psychosocial Hx Psychiatric Problems: No Behavioral Health Disorders: Depression Integumentary HX Skin/Integumentary Disorder: No Blood Transfusions Hx Blood Disorders: No Adverse Reaction to a Blood Tr: No Family Medical History Family Hx: Patient reports no known family medical history. Review of Systems Constitutional: see HPI EENTM: no symptoms reported Respiratory: short of breath Cardiovascular: edema Gastrointestinal: no symptoms reported Genitourinary: no symptoms reported Musculoskeletal: no symptoms reported Skin: no symptoms reported Psychiatric/Neurological: No Symptoms Reported Physical Exam Physical Exam Vital Signs Vital Sign - Last 12Hours 09/16/16 16:36 Temp 98.8 Pulse 80 Resp 18 B/P (MAP) 138/73 Pulse Ox 99 O2 Delivery Nasal Cannula O2 Flow Rate 2.00 Capillary Refill : General Appearance: No Apparent Distress, WD/WN, Chronically ill, Obese Eyes: Bilateral Eye Normal Inspection, Bilateral Eye PERRL HEENT: PERRL/EOMI, Normal ENT Inspection, Pharynx Normal Neck: Full Range of Motion, Normal Inspection, Non Tender, Supple, Carotid Bruit Respiratory: Chest Non Tender, Lungs Clear, Normal Breath Sounds, No Accessory Muscle Use, No Respiratory Distress Cardiovascular: No Edema, No Gallop, No JVD, No Murmur, Normal Peripheral Pulses, Irregularly Irregular Gastrointestinal: Normal Bowel Sounds, No Organomegaly, No Pulsatile Mass, Non Tender, Soft Back: Normal Inspection, No CVA Tenderness, No Vertebral Tenderness Extremity: Normal Capillary Refill, Normal Inspection, Normal Range of Motion, Non Tender, No Calf Tenderness, Swelling (equally bilateral legs) Neurologic/Psychiatric: Alert, Oriented x3, No Motor/Sensory Deficits, Normal Mood/Affect Skin: Normal Color, Warm/Dry Lymphatic: No Adenopathy Results Results/Procedures Lab Laboratory Tests 09/17/16 04:58 Assessment/Plan Admission Diagnosis Assessment: Status post bypass surgery with aortic valve replacement uncomplicated Overall debility Atrial fibrillation with rapid ventricular response managed by cardiology yesterday Hypertension Hyperlipidemia Anemia status post major cardiac surgery Edema Assessment and Plan Plan: Monitor atrial fibrillation closely Monitor hemoglobin closely Rehabilitation protocol Clinical Quality Measures DVT/VTE Risk/Contraindication: Risk Factor Score Per Nursin RFS Level Per Nursing on Admit: 4+=Very High BUCK ARMENDARIZ DO Sep 17, 2016 13:20
--- NOTE | 2016-09-17 15:53 | Physical Therapy Evaluation ---
PT Evaluation-General Medical Diagnosis Admission Date Sep 16, 2016 at 16:40 Medical Diagnosis: s/p CABG x1, AVR, MVR Onset Date: August 10, 2016 Therapy Diagnosis Therapy Diagnosis: debility Height/Weight Height (Feet): 5 Height (Inches): 2.00 Weight (Pounds): 229 Weight (Ounces): 1.0 Precautions Precautions/Isolations: Fall Prevention, Standard Precautions Weight Bear Status Weight Bearing Restriction: Full Weight Bearing Location Restriction: LE Bilateral Referral Physician: Bryec Reason for Referral: Evaluation/Treatment Medical History Pertinent Medical History: Atrial Fib, Arthritis, COPD, GERD, HTN, Rheumatoid Arthritis Additional Medical History pulmonary edema, obesity, hyperlipidemia, osteoporosis Current History Pt underwent CABG x 1, aortic valve replacement, and mitral valve repair on 08/10. In hospital ever since with acute blood loss anemia, leukocytosis, thrombocytopenia, acute respiratory failure with pulmonary edema. Reviewed History: Yes Social History Home: Assisted Living ([facility]) Current Living Status: Alone Entry Into Home: Level Entry Prior/Core FIM Prior Level of Function Functional [place] Measure 0=Not Assessed/NA 4=Minimal Assistance 1=Total Assistance 5=Supervision or Setup 2=Maximal Assistance 6=Modified [place] 3=Moderate Assistance 7=Complete [place] Bed Mobility: 6 Transfers (B,C,W/C) (FIM): 6 Gait: 6 Pt reports PLOF of (I) with functional mobility. Reports home O2 use of 2L at all times, mobility limited by respiratory status. Pt reports ambulation limited to ~100 feet due to SOB. (+) Driving. Takes care of his dog. PT Evaluation-Current Subjective Pt in bed, agreeable. Self limits activity very quickly. Denies pain. Pt/Family Goals RESIDENTIAL Objective Patient Orientation: Person, Place, Time, Situation Problem Solving: Fair Attachments: Oxygen ROM/Strength ROM Upper Extremities see OT ROM Lower Extremities WFL for mobility Strength Upper Extremities see OT Strenght Lower Extremities (B) ankles and knees: grossly 3+/5 (B) hips: grossly 3-/5 Integumentary/Posture Integumentary See nurses' notes Posture flexed Neuromuscular (Tone, Coordination, Reflexes) unremarkable Sensory Vision: Functional Hearing: Functional Hand Dominance: Right Sensation Right Lower Extremit: Intact Sensation Left Lower Extremity: Intact Transfers Functional [place] Measure 0=Not Assessed/NA 4=Minimal Assistance 1=Total Assistance 5=Supervision or Setup 2=Maximal Assistance 6=Modified [place] 3=Moderate Assistance 7=Complete IndependenceIRFPAI Quality Coding Scale 6 Independent with activity with or without an assistive device 5 Patient requires set up or clean up by helper. Patient completes activity by themselves 4 Supervision or touching assist (CGA). [place] provide cues , steadying assist 3 The helper provides less than half the effort to complete the activity 2 The helper provides more than half the effort to complete the activity 1 Dependent. The helper does all the effort to complete an activity 7 Patient refused to complete or attempt activity 9 The patient did not perform the activity before the current illness or injury 88 Not attempted due to Medical conditions or safety concerns Transfers (B, C, W/C) (FIM): 3 Scootin Rollin Roll Left to Right (QC): 3 Supine to/from Sit: 3 Sit to/from Stand: 4 Sit to Lying (QC): 2 Lying to Sitting/Side of Bed(Q: 2 Sit to Stand (QC): 3 Chair/Gbb-wx-Dylrn Xfer(QC): 4 Car Transfer (QC): 88 Pt with very limited activity tolerance. Not appropriate to assess car transfer at this time. Gait Does the Patient Walk?: Yes Mode of Locomotion: Walk Anticipated Mode of Locomotion: Walk Gait (FIM): 2 Distance (FIM): 1=up to 49 ft Walk 10 feet (QC): 4 Walk 50 ft with 2 Turns(QC): 88 Walk 150 ft (QC): 88 Walking 10ft/uneven surface-QC: 88 Distance: 20 Gait Level of Assist: 4 Gait Persons Needed: 1 Gait Assistive Device: FWW Comments/Gait Description Pt ambulates with very slow, shuffling gait with flexed posture. Pt attempted to stop after ~5 feet and stated he needed to sit; able to complete remaining 15 ' when he was instructed there was not something immediately available to sit on. Wheelchair Training Does the Pt Use a Wheelchair?: No Stairs Stairs (FIM): 0 1 Step (curb) (QC): 88 4 Steps (QC): 88 12 Steps (QC): 88 If not tested on admit;explain Very poor activity tolerance. Pt required max encouragement to complete 20' gait in room Balance Sitting Static: Fair Sitting Dynamic: Fair Standing Static: Fair Standing Dynamic: Fair Picking up an Object (QC): 88 Treatment Transfer training supine<->sit. Transfer training bed<->BSC. Partial co-treat with OT due to poor activity tolerance. OT addressing UE/ADLs, PT addressing LE/ balance/functional mobility. Up in chair with O2 in situ, needs met. Assessment/Needs Pt is a 76 y.o. male with significant debility after operation with lengthy hospital stay. Pt quickly self-limits activity and requires encouragement to increase activity. Pt would benefit from skilled PT to address weakness, decreased functional activity tolerance and increased dependence with functional mobility. Clinical presentation: high complexity, unstable. Rehab Potential: Fair Equipment Needs Continue to assess; Pt reports that he already owns a FWW although he denies use at [facility]. PT Short Term Goals Short Term Goals Time Frame: Oct 01, 2016 Transfers (B,C,W/C) (FIM): 4 Gait (FIM): 2 Distance (FIM): 1=918-38 ft Gait Distance Comment: 50 Gait Level of Assist: 5 Gait Assistive Device: FWW PT Loading Unit Tool Setter Goals Jail Goals PT Loading Unit Tool Setter Goals Time Frame: Oct 15, 2016 Transfers (B,C,W/C) (FIM): 6 Sit to Lying (QC): 6 Lying-Sitting on Side/Bed(QC): 6 Sit to Stand (QC): 6 Rollin Roll Left to Right (QC): 6 Chair/Ogs-eg-Volas Xfer(QC): 6 Car Transfer (QC): 6 Does the Patient Walk: Yes Gait (FIM): 5 Gait distance (FIM): 2=893-52 ft Distance: 100 Walk 10 feet (QC): 6 Walk 10ft-Uneven Surface(QC): 6 Walk 50ft with 2 Turns (QC): 6 Walk 150 ft (QC): 9 Gait Level of Assist: 6 Gait Assistive Device: FWW Does the Pt use WC or Scooter?: No Stairs (FIM): 1 # of Steps: 1 1 Step (curb) (QC): 4 4 Steps (QC): 9 12 Steps (QC): 9 Stairs Level Of Assist: 4 Picking up an Object (QC): 6 LTGs established to allow Pt to return to [facility] at [facility]. PT Plan Problem List Problem List: Activity Tolerance, Functional Strength, Safety, Balance, Gait, Transfer, Bed Mobility Treatment/Plan Treatment Plan: Continue Plan of Care Treatment Plan: Bed Mobility, Education, Functional Activity Raheem, Functional Strength, Group Therapy, Gait, Safety, Therapeutic Exercise, Transfers Treatment Duration: Oct 15, 2016 # of days/week 5-6 Visits Per Week: 10-11 Minutes/Day (M-F): 60-90 Minutes/Day (Sat/[place]): PRN Pt/Family Agrees w/Plan: Yes Safety Risks/Education Teaching Recipient: Patient Teaching Methods: Discussion Response to Teaching: Verbalize Understanding, Reinforcement Needed PT POC, expectations of ARU Discharge Recommendations Plan Continue to assess progress Barriers to Progress Pt self-limits; limited by SOB at PLOF Time/GCodes Time In: 0755 Time Out: 0910 Total Billed Treatment Time: 65 Total Billed Treatment 1, EVHIGHC x 25', FA x 40' [id number] (EVAL) [id number] (FA) 9438-2815 (unattended for OT eval) 8410-3156 (FA ; co-treat with OT due to poor activity tolerance; PT addressing LE/balance/ functional mobility, OT addressing ADLs/UE G Codes Necessary: ROB Cortés DPViet Sep 17, 2016 15:53
[2016-09-17] MEDS: ALFUZOSIN HCL 10 MG TAB (UROXATRAL) PO SCH (17:33)
[2016-09-17 17:57] VITALS: BP 104/66
[2016-09-17] MEDS: traZODone 50 MG (DESYREL) TAB PO SCH (20:36)
[2016-09-17] MEDS: DOCUSATE SODIUM 100 MG (COLACE) CAP PO SCH (20:36)
[2016-09-17] MEDS: ATORVASTATIN 80 MG (LIPITOR) TABLET PO SCH (20:37)
[2016-09-17] MEDS: inSUlin DETERMIR 1 UNIT/0.01 ML (LEVEMIR) CHARGE PER UNIT SQ SCH (20:37)
[2016-09-18] MEDS: ACETAMINOPHEN 325 MG TABLET/CAPLET (TYLENOL) PO PRN ×2 (02:51→22:52)
[2016-09-18 05:05] VITALS: BP 110/68
[2016-09-18] MEDS: inSUlin (REGULAR) HUMAN 1 UNIT/0.01 ML (CHARGE PER UNIT) SC SCH ×4 (05:37→21:25)
[2016-09-18] MEDS: predniSONE 20 MG TAB PO SCH (06:16)
[2016-09-18] MEDS: BUMETANIDE 1 MG (BUMEX) TAB PO SCH ×4 (06:16→23:00)
[2016-09-18] MEDS: PANTOPRAZOLE 40 MG (PROTONIX) TAB PO SCH ×2 (06:16→16:55)
[2016-09-18] MEDS: KCL 20 MEQ TAB (K-DUR) PO SCH (06:16)
[2016-09-18] MEDS: sulfaSALAzine 500 MG (AZULFIDINE) TAB PO SCH ×2 (08:17→17:11)
[2016-09-18] MEDS: ASPIRIN E.C. 81 MG (ECOTRIN) TAB PO SCH (08:17)
[2016-09-18] MEDS: DIGOXIN 0.25 MG (LANOXIN) TAB PO SCH (08:17)
[2016-09-18] MEDS: guaiFENesin (MUCINEX) 600 MG TAB PO SCH ×2 (08:17→21:25)
[2016-09-18] MEDS: meTOproloL SUCCINATE 50 MG (TOPROL XL) TAB PO SCH (08:17)
[2016-09-18] MEDS: FINASTERIDE (PROSCAR) 5 MG TAB PO SCH (08:17)
[2016-09-18] MEDS: LORATADINE (CLARITIN) 10 MG TAB PO SCH (08:18)
[2016-09-18] MEDS: FLUTICASONE NASAL SPRAY (FLONASE) 16 GM BTL NS SCH (08:18)
[2016-09-18] MEDS: DOCUSATE SODIUM 100 MG (COLACE) CAP PO SCH ×2 (08:18→21:24)
[2016-09-18] MEDS: SPIRONOLACTONE 25 MG (ALDACTONE) TAB PO SCH (08:18)
[2016-09-18] MEDS: ALFUZOSIN HCL 10 MG TAB (UROXATRAL) PO SCH (17:11)
[2016-09-18 17:46] VITALS: BP 112/73
[2016-09-18] MEDS: ATORVASTATIN 80 MG (LIPITOR) TABLET PO SCH (21:24)
[2016-09-18] MEDS: inSUlin DETERMIR 1 UNIT/0.01 ML (LEVEMIR) CHARGE PER UNIT SQ SCH (21:25)
[2016-09-18] MEDS: traZODone 50 MG (DESYREL) TAB PO SCH (21:25)
[2016-09-19 05:05] VITALS: BP 108/65
[2016-09-19] MEDS: inSUlin (REGULAR) HUMAN 1 UNIT/0.01 ML (CHARGE PER UNIT) SC SCH ×4 (05:07→20:05)
[2016-09-19] MEDS: BUMETANIDE 1 MG (BUMEX) TAB PO SCH ×4 (05:55→23:03)
[2016-09-19] MEDS: predniSONE 20 MG TAB PO SCH (05:55)
[2016-09-19] MEDS: KCL 20 MEQ TAB (K-DUR) PO SCH (05:55)
[2016-09-19] MEDS: PANTOPRAZOLE 40 MG (PROTONIX) TAB PO SCH ×2 (05:55→16:28)
[2016-09-19] MEDS: sulfaSALAzine 500 MG (AZULFIDINE) TAB PO SCH (08:19)
[2016-09-19] MEDS: DIGOXIN 0.25 MG (LANOXIN) TAB PO SCH (08:19)
[2016-09-19] MEDS: LORATADINE (CLARITIN) 10 MG TAB PO SCH (08:19)
[2016-09-19] MEDS: ASPIRIN E.C. 81 MG (ECOTRIN) TAB PO SCH (08:19)
[2016-09-19] MEDS: meTOproloL SUCCINATE 50 MG (TOPROL XL) TAB PO SCH (08:19)
[2016-09-19] MEDS: FINASTERIDE (PROSCAR) 5 MG TAB PO SCH (08:19)
[2016-09-19] MEDS: guaiFENesin (MUCINEX) 600 MG TAB PO SCH ×2 (08:19→20:51)
[2016-09-19] MEDS: SPIRONOLACTONE 25 MG (ALDACTONE) TAB PO SCH (08:19)
[2016-09-19] MEDS: DOCUSATE SODIUM 100 MG (COLACE) CAP PO SCH ×2 (08:19→20:51)
[2016-09-19] MEDS: FLUTICASONE NASAL SPRAY (FLONASE) 16 GM BTL NS SCH (08:20)
--- NOTE | 2016-09-19 09:59 | Physical Therapy Daily Note ---
PT Daily Note-Current Subjective Patient in recliner pre tx, agrees to PT, has no complaints of pain. Patient states that he cannot leave the room because he is on lasix and when he has to urinate he will not have time to walk to the bathroom. Appearance Patient in recliner post tx with nurse call, phone, tray, all needs met. Mental Status Patient Orientation: Normal For Age Attachments: Oxygen 2L of O2 nasal canula Transfers Functional [place] Measure 0=Not Assessed/NA 4=Minimal Assistance 1=Total Assistance 5=Supervision or Setup 2=Maximal Assistance 6=Modified [place] 3=Moderate Assistance 7=Complete IndependenceIRFPAI Quality Coding Scale 6 Independent with activity with or without an assistive device 5 Patient requires set up or clean up by helper. Patient completes activity by themselves 4 Supervision or touching assist (CGA). [place] provide cues , steadying assist 3 The helper provides less than half the effort to complete the activity 2 The helper provides more than half the effort to complete the activity 1 Dependent. The helper does all the effort to complete an activity 7 Patient refused to complete or attempt activity 9 The patient did not perform the activity before the current illness or injury 88 Not attempted due to Medical conditions or safety concerns Sit to/from Stand: 4 CGA, very slow, may take a couple of attempts Gait Training Gait (FIM): 1 Distance: 25'x3 Gait Level of Assist: 4 Gait Persons Needed: 1 Gait Assistive Device: FWW very slow ambulation, may need standing rest breaks, SOB Exercises Seated Therapy Exercises: Ankle pumps, Hip flexion, Hip abd/add Seated Reps: 20 LAQ alternating for 3 min Treatments transfers, ambulation, functional strengthening Assessment Current Status: Fair Progress Patient fatigues very very easily and needs frequent rest breaks, his SOB severely limits how much he is able to perform PT Short Term Goals Short Term Goals Time Frame: Oct 01, 2016 Transfers (B,C,W/C) (FIM): 4 Gait (FIM): 2 Distance (FIM): 4=522-37 ft Gait Distance Comment: 50 Gait Level of Assist: 5 Gait Assistive Device: FWW PT Long-Term Goals Button Machine Operator Goals PT Button Machine Operator Goals Time Frame: Oct 15, 2016 Transfers (B,C,W/C) (FIM): 6 Sit to Lying (QC): 6 Lying-Sitting on Side/Bed(QC): 6 Sit to Stand (QC): 6 Rollin Roll Left to Right (QC): 6 Chair/Jtc-wk-Fdodm Xfer(QC): 6 Car Transfer (QC): 6 Does the Patient Walk: Yes Gait (FIM): 5 Gait distance (FIM): 0=028-57 ft Distance: 100 Walk 10 feet (QC): 6 Walk 10ft-Uneven Surface(QC): 6 Walk 50ft with 2 Turns (QC): 6 Walk 150 ft (QC): 9 Gait Level of Assist: 6 Gait Assistive Device: FWW Does the Pt use WC or Scooter?: No Stairs (FIM): 1 # of Steps: 1 1 Step (curb) (QC): 4 4 Steps (QC): 9 12 Steps (QC): 9 Stairs Level Of Assist: 4 Picking up an Object (QC): 6 PT Plan Problem List Problem List: Activity Tolerance, Functional Strength, Safety, Balance, Gait, Transfer, Bed Mobility Treatment/Plan Treatment Plan: Continue Plan of Care Treatment Plan: Bed Mobility, Education, Functional Activity Raheem, Functional Strength, Group Therapy, Gait, Safety, Therapeutic Exercise, Transfers Treatment Duration: Oct 15, 2016 Visits Per Week: 10-11 Minutes/Day (M-F): 60-90 Minutes/Day (Sat/[place]): PRN Safety Risks/Education Patient Education: Gait Training, Transfer Techniques, Correct Positioning, Safety Issues Teaching Recipient: Patient Teaching Methods: Demonstration, Discussion Response to Teaching: Reinforcement Needed Time/GCodes Time In: 900 Time Out: 1000 Total Billed Treatment Time: 60 Total Billed Treatment 1 visit EX 20' GT 40' ELIANE BRANDT PT Sep 19, 2016 09:59
--- NOTE | 2016-09-19 10:00 | Cardiology Progress Note ---
Cardiology SOAP Progress Note Subjective: no chest pain. likely hypoglycemic episode last night. Objective: I&O/Vital Signs Vital Sign - Last 12Hours 09/19/16 09/19/16 09/19/16 09/19/16 01:00 05:05 07:23 09:31 Temp 97.3 Pulse 86 79 83 Resp 16 B/P (MAP) 108/65 Pulse Ox 98 O2 Delivery Nasal Cannula Nasal Cannula O2 Flow Rate 2.00 2.00 Intake and Output 09/18/16 23:59 Intake Total 950 ml Output Total 2200 ml Balance -1250 ml Weight (Pounds): 225 Weight (Ounces): 1.0 Weight (Calculated Kilograms): 102.932663 Constitutional: No appears stated age, No AAO x 3, No apparent distress, No PERRL, No well-developed, No well-nourished, No other Respiratory: No accessory muscle use, No respiratory distress, No chest tender , No chest expansion is symmetric, No chest is bilaterally symmetric, No lungs clear to percussion, No lungs clear to auscultation, No crackles, No rhonchi, No rales, No stridor, No wheezing, No pleural rub, No other Cardiovascular: irregularly irregular, S1 and S2 Gastrointestional: No tender, No soft, No round, distended, No pulsatile mass, No organomegaly, No guarding, No rebound, No tenderness, No hernia, No mass, No audible bowel sounds, No abnormal bowel sounds, No abdominal bruits, No spleenomegaly, No other Extremities: significant edema Neurologic/Psychiatric: No bobbin dumper II-XII nml as tested, No no motor/sensory deficits, No alert, No normal mood/affect, No oriented x 3, No abnormal cerebellar tests, No abnormal bobbin dumper II-XII, No abnormal gait, No aphasia, No EOM palsy, No facial droop, No motor weakness, No sensory deficit, No depressed affect, No disoriented x 3, No other, No grossly intact, No power is 5/5 both on sides Skin: No normal color, No warm/dry, No cyanosis, No cool, No diaphoresis, No damp, No ecchymosis, No jaundice, No mottled, No pallor, No rash, No tattoos/ piercings, No ulcerations, No rash on exposed areas, No ulcerations on exposed areas, No other Results/Procedures: Labs Laboratory Tests 09/18/16 11:01: Glucometer 139H 09/18/16 15:35: Glucometer 285H 09/18/16 20:51: Glucometer 122H 09/18/16 23:20: Glucometer 77 09/18/16 23:31: Glucometer 73 09/18/16 23:37: Glucometer 76 09/18/16 23:49: Glucometer 98 09/19/16 00:46: Glucometer 152H 09/19/16 04:41: Glucometer 146H A/P: Assessment/Dx: Coronary artery disease, status post CABG, Status post-mitral valve repair, Status post-aortic valve replacement Atrial fibrillation, status post cryo maze, Anemia, Significant edema. Plan: CAD; Continue current therapy which includes aspirin. Significant edema: continue bumetanide and current dose of spironolactone. AVR, Mitral valve repair, Cryomaze: no issues. inpatient rehab. continue to monitor. Thank you for your consultation. Please call me if you have any questions. Jovana Barahona MD, FACP, FACC, FSCAI, FHRS, CCDS Interventional Cardiology Cardiac Electrophysiology Vascular Medicine and Endovascular Interventions Emy BARAHONA MD Sep 19, 2016 10:00
--- NOTE | 2016-09-19 10:52 | Occupational Ther Daily Note ---
OT Current Status-Daily Note Subjective Pt alert, lying to bed. Pt agreed to therapy. No c/o pain, c/o fatigue. Mental Status/Objective Patient Orientation: Person, Place, Time, Situation Functional [place] Measure 0=Not Assessed/NA 4=Minimal Assistance 1=Total Assistance 5=Supervision or Setup 2=Maximal Assistance 6=Modified [place] 3=Moderate Assistance 7=Complete [place] Attachments: IV, Oxygen ADL-Treatment Pt requested to take a sponge bath. Pt has decreased activity tolerance and takes frequent recovery breaks due to SOA and fatigue. Pt requested to go to bathroom. Pt is min A for sit to stand and CGA using FWW to ambulate from room to bathroom. Pt required 1 standing recovery break while ambulating 10 feet from chair to toilet. CGA using FWW and grabbar to transfer to toilet. Pt required verbal cues for hand placement while going from sit to stand and stand to sit. Pt was able to cleanse susan area then assist to cleanse buttocks. Pt ambulated back to chair with 1 recovery break. Set up for sponge bath. Pt required extended break before starting sponge bath. Pt then was able to bath upper body before recovery break needed. Pt bathed upper legs then unable to complete lower legs. Pt declined donning any regular clothing. Pt unable to reach to don/doff socks at this time. Pt took increased time to complete all ADLs due to decreased activity tolerance. After therapy, pt sitting in recliner with call light/phone in reach. All needs met in room. Functional [place] Measure 0=Not Assessed/NA 4=Minimal Assistance 1=Total Assistance 5=Supervision or Setup 2=Maximal Assistance 6=Modified [place] 3=Moderate Assistance 7=Complete IndependenceIRFPAI Quality Coding Scale 6 Independent with activity with or without an assistive device 5 Patient requires set up or clean up by helper. Patient completes activity by themselves 4 Supervision or touching assist (CGA). [place] provide cues , steadying assist 3 The helper provides less than half the effort to complete the activity 2 The helper provides more than half the effort to complete the activity 1 Dependent. The helper does all the effort to complete an activity 7 Patient refused to complete or attempt activity 9 The patient did not perform the activity before the current illness or injury 88 Not attempted due to Medical conditions or safety concerns Bathing (FIM): 3 Bathing Location: L Arm, R Arm, L Upper Leg, R Upper Leg, Chest, Abdomen, Buttocks Toileting (FIM): 4 Transfers (B, C, W/C) (FIM): 4 Toilet/Commode Transfer (FIM): 4 OT Short Term Goals Short Term Goals Time Frame: Sep 30, 2016 Grooming(FIM): 5 Toileting(FIM): 4 Transfers (B,C,W/C) (FIM): 4 Toilet/Commode Transfer(FIM): 5 Additional Short Term Goals: 2-Verbalize Understanding, 3-ImproveStrength/Raheem 1=Demonstrate adherence to instructed precautions during ADL tasks. 2=Patient will verbalize/demonstrate understanding of assistive devices/ modifications for ADL. 3=Patient will improve strength/tolerance for activity to enable patient to perform ADL's. OT Global Engineering Manager Goals Global Engineering Manager Goals Time Frame: Oct 14, 2016 Eating (FIM): 6 Eating (QC): 6 Groomin Oral Hygiene (QC): 6 Bathing(FIM): 6 Shower/Bathe Self (QC): 6 Upper Body Dressing(FIM): 6 Upper Body Dressing (QC): 6 Lower Body Dressing(FIM): 6 Lower Body Dressing (QC): 6 On/Off Footwear (QC): 6 Toileting(FIM): 6 Toileting Hygiene (QC): 6 Transfers (B,C,W/C) (FIM): 6 Toilet/Commode Transfer(FIM): 6 Toilet/Commode Transfer (QC): 6 Shower Transfer(FIM): 6 Additional Goals: 2-Verbalize Understanding, 3-ImproveStrength/Raheem 1=Demonstrate adherence to instructed precautions during ADL tasks. 2=Patient will verbalize/demonstrate understanding of assistive devices/ modifications for ADL. 3=Patient will improve strength/tolerance for activity to enable patient to perform ADL's. OT Education/Plan Problem List/Assessment Pt would benefit from skilled OT to increase his independence in basic ADLs to allow him to safely return to his home at [place] and decrease caregiver burden Discharge Recommendations Plan/Recommendations: Continue POC Treatment Plan/Plan of Care Patient would benefit from OT for education, treatment and training to promote independence in ADL's, mobility, safety and/or upper extremity function for ADL' s. Plan of Care: ADL Retraining, Functional Mobility, Group Exercise/Act as Ind ( education, exercise, activity tolerance, functional activities, socialization), UE Funct Exercise/Act, UE Neuromus Re-Ed/Coord Treatment Duration: Oct 14, 2016 Visits Per Week: 10-11 Minutes/Day (M-F): 75-90 Minutes/Day (Sat/[place]): PRN Agreement: Yes Rehab Potential: Fair Time/GCodes Start Time: 07:00 Stop Time: 08:30 Total Time Billed (hr/min): 90 Billed Treatment Time 1 visit-ADL 6 (90 min) CHUCHO HENRY Sep 19, 2016 10:52
[2016-09-19] MEDS ORDERED: POTA-53 PO (11:38)
[2016-09-19] MEDS ORDERED: TIOT4MIS5 IH (11:38)
[2016-09-19] MEDS ORDERED: DOCU-143 PO (11:38)
[2016-09-19] MEDS ORDERED: DIGO250T PO (11:38)
[2016-09-19] MEDS ORDERED: BMT.25V4 IV (11:38)
[2016-09-19] MEDS ORDERED: PRD20T PO (11:38)
[2016-09-19] MEDS ORDERED: METO-352 PO (11:38)
[2016-09-19] MEDS ORDERED: CHOL10007 PO (11:38)
[2016-09-19] MEDS ORDERED: PANT40TA2 PO (11:38)
[2016-09-19] MEDS ORDERED: PAMI30VI8 SQ (11:38)
[2016-09-19] MEDS ORDERED: INSU100V5 SQ (11:38)
[2016-09-19] MEDS ORDERED: TRAZ-28 PO (11:38)
[2016-09-19] MEDS ORDERED: RT-ALBUINH IH (11:38)
[2016-09-19] MEDS ORDERED: GUAI120016 PO (11:38)
[2016-09-19] MEDS ORDERED: INSU100I29 SQ (11:38)
[2016-09-19] MEDS ORDERED: FLUT16SP22 NS (11:38)
[2016-09-19] MEDS ORDERED: BISA-65 PO (11:38)
--- NOTE | 2016-09-19 11:39 | ST Cognitive Linguistic Eval ---
Speech Evaluation-General Medical Diagnosis s/p CABG x1, AVR, MVR Onset Date: August 10, 2016 Therapy Diagnosis Therapy Diagnosis: Cognitive Linguistic Function WNL Precautions Precautions/Isolations: Fall Prevention, Standard Precautions Referral Referring Physician: Dr. Sander Wu Reason for Referral: Evaluation/Treatment Cognitive Evaluation Medical History Pertinent Medical History: Atrial Fib, Arthritis, COPD, GERD, HTN, Rheumatoid Arthritis Reviewed History: Yes Social History Current Living Status: Alone Speech PLF-Current Status Prior Level of Function The patient denied cognitive linguistic difficulties prior to or throughout his recent admission. Subjective The patient was recently admitted to [facility] following a CABGx1. The patient greeted the clinician appropriately and was agreeable to participation in the cognitive evaluation. Language Eval: Auditory Comprehends Simple Yes/No Ques: Functional Indent/Objects [place]: Functional Ident/Pics in [place]: Functional Follows 1-Step Commands: Functional Follows Complex Directions: Functional Follows General Conversations: Functional Language Eval: Verbal Language Completes Spontaneous Greeting: Functional Produces Auto, Serial Info: Functional Imitates Simple Words/Phrases: Functional Word Finding: Functional Requests Basic Needs: Functional States Basic Personal Info: Functional Expresses Complex Ideas: Functional Cognitive Patient Orientation The patient was oriented to month, day of week, date, year, and location. Objective Cognitive Domain Attention: WNL Memory: WNL Problem Solving: Functional Executive Functions: WNL Objective Impression The patient demonstrated cognitive linguistic functions within normal limits and appropriate for completion of ADL's. Communication/Social Cognition Comprehension: 6 Expression: 6 Social Interaction: 6 Problem Solvin Memory: 6 Speech Patient Assess Expression of Ideas/Wants: Expression (4) Understanding [place] Content: Understands (4) Brief Interview-Mental Status: Yes Repetition of Three Words: Three (3) Temporal Orientation: Year: Correct (3) Temporal Orientation: Month: Accurate within 5 days(2) Temporal Orientation: Day: Correct (1) Recall : Wear to say "Sock": Yes, no cue required (2) Recall : Color: Yes, no cue required (2) Recall : Bed: Yes, no cue required (2) Speech-Plan Treatment Plan Speech Therapy Treatment Plan: Discontinue ST Evaluation, only. Rehab Potential: Fair Safety Risks/Education Teaching Recipient: Patient Teaching Methods: Discussion Response to Teaching: Verbalize Understanding Education Topics Provided: Results, Recommendations, Plan of Care Time Speech Therapy Time In: 08:30 Speech Therapy Time Out: 08:45 Total Billed Time: 15 Billed Treatment Time 1, GUILLERMO ACEVEDO Sep 19, 2016 11:39
[2016-09-19] MEDS ORDERED: TIOT4MIS2 IH (12:07)
--- NOTE | 2016-09-19 14:30 | Physical Therapy Daily Note ---
PT Daily Note-Current Subjective Patient sleeping in recliner pre tx, agrees to PT, no complaints of pain. Patient has been sitting in chair since this morning and he is very tired/ fatigued. Appearance Patient in bed post tx with nurse call, phone, tray, all needs met. Mental Status Patient Orientation: Normal For Age Attachments: Oxygen Transfers Functional [place] Measure 0=Not Assessed/NA 4=Minimal Assistance 1=Total Assistance 5=Supervision or Setup 2=Maximal Assistance 6=Modified [place] 3=Moderate Assistance 7=Complete IndependenceIRFPAI Quality Coding Scale 6 Independent with activity with or without an assistive device 5 Patient requires set up or clean up by helper. Patient completes activity by themselves 4 Supervision or touching assist (CGA). [place] provide cues , steadying assist 3 The helper provides less than half the effort to complete the activity 2 The helper provides more than half the effort to complete the activity 1 Dependent. The helper does all the effort to complete an activity 7 Patient refused to complete or attempt activity 9 The patient did not perform the activity before the current illness or injury 88 Not attempted due to Medical conditions or safety concerns Transfers (B, C, W/C) (FIM): 2 Scootin Rollin Supine to/from Sit: 2 Sit to/from Stand: 3 Patient needed help with both legs getting into bed and he needed mod assist to stand from the chair and it took several tries. Exercises Supine Ex: Ankle pumps, Quad Set, Glut sets, Heel Slides, Short Arc Quads Supine Reps: 20 Treatments transfers, bed mobility, functional strengthening Assessment Current Status: Poor Progress Patient very weak this afternoon, he had a hard time with the transfer back to his bed, it took him several tries to stand from the recliner. PT Short Term Goals Short Term Goals Time Frame: Oct 01, 2016 Transfers (B,C,W/C) (FIM): 4 Gait (FIM): 2 Distance (FIM): 5=504-67 ft Gait Distance Comment: 50 Gait Level of Assist: 5 Gait Assistive Device: FWW PT Service Porter Goals Snf Goals PT Service Porter Goals Time Frame: Oct 15, 2016 Transfers (B,C,W/C) (FIM): 6 Sit to Lying (QC): 6 Lying-Sitting on Side/Bed(QC): 6 Sit to Stand (QC): 6 Rollin Roll Left to Right (QC): 6 Chair/Snh-tw-Amgbx Xfer(QC): 6 Car Transfer (QC): 6 Does the Patient Walk: Yes Gait (FIM): 5 Gait distance (FIM): 9=846-55 ft Distance: 100 Walk 10 feet (QC): 6 Walk 10ft-Uneven Surface(QC): 6 Walk 50ft with 2 Turns (QC): 6 Walk 150 ft (QC): 9 Gait Level of Assist: 6 Gait Assistive Device: FWW Does the Pt use WC or Scooter?: No Stairs (FIM): 1 # of Steps: 1 1 Step (curb) (QC): 4 4 Steps (QC): 9 12 Steps (QC): 9 Stairs Level Of Assist: 4 Picking up an Object (QC): 6 PT Plan Problem List Problem List: Activity Tolerance, Functional Strength, Safety, Balance, Gait, Transfer, Bed Mobility, ROM Treatment/Plan Treatment Plan: Continue Plan of Care Treatment Plan: Bed Mobility, Education, Functional Activity Raheem, Functional Strength, Group Therapy, Gait, Safety, Therapeutic Exercise, Transfers Treatment Duration: Oct 15, 2016 Visits Per Week: 10-11 Minutes/Day (M-F): 60-90 Minutes/Day (Sat/[place]): PRN Safety Risks/Education Patient Education: Transfer Techniques, Correct Positioning, Safety Issues Teaching Recipient: Patient Teaching Methods: Demonstration, Discussion Response to Teaching: Reinforcement Needed Time/GCodes Time In: 1400 Time Out: 1430 Total Billed Treatment Time: 30 Total Billed Treatment 1 visit EX 15' FA 15' ELIANE BRANDT PT Sep 19, 2016 14:30
[2016-09-19] MEDS: ACETAMINOPHEN 325 MG TABLET/CAPLET (TYLENOL) PO PRN (16:29)
[2016-09-19] MEDS: ALFUZOSIN HCL 10 MG TAB (UROXATRAL) PO SCH (17:29)
[2016-09-19 18:06] VITALS: BP 98/62
[2016-09-19] MEDS: traZODone 50 MG (DESYREL) TAB PO SCH (20:51)
[2016-09-19] MEDS: ATORVASTATIN 80 MG (LIPITOR) TABLET PO SCH (20:51)
[2016-09-19] MEDS: inSUlin DETERMIR 1 UNIT/0.01 ML (LEVEMIR) CHARGE PER UNIT SQ SCH (20:54)
[2016-09-20] MEDS: ACETAMINOPHEN 325 MG TABLET/CAPLET (TYLENOL) PO PRN (03:00)
[2016-09-20] MEDS: inSUlin (REGULAR) HUMAN 1 UNIT/0.01 ML (CHARGE PER UNIT) SC SCH ×4 (04:58→21:11)
[2016-09-20] MEDS: PANTOPRAZOLE 40 MG (PROTONIX) TAB PO SCH ×2 (05:02→15:54)
[2016-09-20] MEDS: predniSONE 20 MG TAB PO SCH (05:02)
[2016-09-20] MEDS: KCL 20 MEQ TAB (K-DUR) PO SCH (05:02)
[2016-09-20] MEDS: BUMETANIDE 1 MG (BUMEX) TAB PO SCH ×4 (05:02→23:18)
[2016-09-20 05:37] VITALS: BP 104/66
--- NOTE | 2016-09-20 07:28 | Individualized Plan of Care ---
Individualized Plan of Care Rehab Nursing IPOC Order Admission Date Sep 16, 2016 at 16:40 Current Orders Orders Patient Visit (09/19/16 ) Speech Sound Lang Comp (09/19/16 ) Patient Visit (09/19/16 ) Exercise Therap, Ea 15 Min (09/19/16 ) Gait Training, Ea 15 Min (09/19/16 ) Functional Activities, Ea 15 (09/19/16 ) Ekg Tracing (09/19/16 22:29) Troponin I (09/19/16 22:53) Troponin I (09/20/16 05:00) Rehab Nursing Orders: Diseage Management, Edu in Press Rel Techn, Hydration Management, Nutrition Management, Pain Management Toilet every (bladder): (hrs): 2 hours while awake prn PT IPOC Problem List: Activity Tolerance, Functional Strength, Safety, Balance, Gait, Transfer, Bed Mobility, ROM Treatment Plan: Continue Plan of Care Bed Mobility, Education, Functional Activity Raheem, Functional Strength, Group Therapy, Gait, Safety, Therapeutic Exercise, Transfers Treatment Duration: Oct 15, 2016 Visits Per Week: 10-11 Minutes/Day (M-F): 60-90 Minutes/Day (Sat/[place]): PRN OT IPOC Problems: Decreased Activ Tolerance, Decreased UE Strength, Dependent Transfers , Impaired Bed Mobility, Impaired Coordination, Impaired Funct Balance, Impaired Self-Care Skills OT Problems Pt would benefit from skilled OT to increase his independence in basic ADLs to allow him to safely return to his home at [place] and decrease caregiver burden Plan of Care: ADL Retraining, Functional Mobility, Group Exercise/Act as Ind ( education, exercise, activity tolerance, functional activities, socialization), UE Funct Exercise/Act, UE Neuromus Re-Ed/Coord Treatment Duration: Oct 14, 2016 Visits Per Week: 10-11 Minutes/Day (M-F): 75-90 Minutes/Day (Sat/[place]): PRN ST IPOC Speech Therapy Treatment Plan: Discontinue ST Physician IPOC Medical Issues being managed closely and that require the 24 hour availability of a physician: postop anemia Thrombocytopenia 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 Medical Issues: Bowel/Bladder Function, DVT Prophylaxis, Falls Precautions, Fluid/Electrolyte/Nutrition Balance, Infection Protection, Pain Management, Wound Care, Other (List) Brief Synthesis of Preadmission Screen, Post-Admission Evaluation, and Therapy Evaluations: 76 yo male s/p CABG and Valvular HT D now s/p CABG and Valve repair at OSH who had postop anemia and thrombocytopenia requiring transfusions.Has resp insufficiency requiring 02 supplementation.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
--- NOTE | 2016-09-20 07:56 | Occupational Ther Daily Note ---
OT Current Status-Daily Note Subjective Pt alert, nrsg had just transferred pt to [facility]. Pt agreed to therapy. No c/o pain. Mental Status/Objective Patient Orientation: Person, Place, Time, Situation Functional [place] Measure 0=Not Assessed/NA 4=Minimal Assistance 1=Total Assistance 5=Supervision or Setup 2=Maximal Assistance 6=Modified [place] 3=Moderate Assistance 7=Complete [place] Attachments: IV, Oxygen, Telemetry ADL-Treatment Pt sitting on BS when OT entered room. Pt stated he needed to sit there for longer. Pt finished and was able to cleanse susan area though unable to cleanse buttocks effectively. Pt requested wearing hospital gown due to increased urination (Lasix) and doesn't want to bother with pants. Pt requires frequent recovery breaks due to decreased activity tolerance. Pt required lengthy recovery break after transferring from [facility] to recliner, approx 3' between BSC and recliner. Pt then was able to wash entire upper body prior to needing recovery break. Then was set up for shaving, pt completed by self. Then donned shirt with min A to get over head and pull down over body. Pt given an oral swab to cleanse mouth. After therapy, pt sitting in recliner with call light/phone in reach. All needs met in room. Functional [place] Measure 0=Not Assessed/NA 4=Minimal Assistance 1=Total Assistance 5=Supervision or Setup 2=Maximal Assistance 6=Modified [place] 3=Moderate Assistance 7=Complete IndependenceIRFPAI Quality Coding Scale 6 Independent with activity with or without an assistive device 5 Patient requires set up or clean up by helper. Patient completes activity by themselves 4 Supervision or touching assist (CGA). [place] provide cues , steadying assist 3 The helper provides less than half the effort to complete the activity 2 The helper provides more than half the effort to complete the activity 1 Dependent. The helper does all the effort to complete an activity 7 Patient refused to complete or attempt activity 9 The patient did not perform the activity before the current illness or injury 88 Not attempted due to Medical conditions or safety concerns Grooming (FIM): 5 Oral Hygiene (QC): 5 Bathing (FIM): 3 Bathing Location: L Arm, R Arm, L Upper Leg, R Upper Leg, Chest, Abdomen, Perineal Area Upper Body (FIM): 4 Lower Body Dressing (FIM): 2 Toileting (FIM): 4 Transfers (B, C, W/C) (FIM): 4 Toilet/Commode Transfer (FIM): 4 OT Short Term Goals Short Term Goals Time Frame: Sep 30, 2016 Grooming(FIM): 5 Toileting(FIM): 4 Transfers (B,C,W/C) (FIM): 4 Toilet/Commode Transfer(FIM): 5 Additional Short Term Goals: 2-Verbalize Understanding, 3-ImproveStrength/Raheem 1=Demonstrate adherence to instructed precautions during ADL tasks. 2=Patient will verbalize/demonstrate understanding of assistive devices/ modifications for ADL. 3=Patient will improve strength/tolerance for activity to enable patient to perform ADL's. OT [employer]in[employer] Technician Goals [facility] Goals Time Frame: Oct 14, 2016 Eating (FIM): 6 Eating (QC): 6 Groomin Oral Hygiene (QC): 6 Bathing(FIM): 6 Shower/Bathe Self (QC): 6 Upper Body Dressing(FIM): 6 Upper Body Dressing (QC): 6 Lower Body Dressing(FIM): 6 Lower Body Dressing (QC): 6 On/Off Footwear (QC): 6 Toileting(FIM): 6 Toileting Hygiene (QC): 6 Transfers (B,C,W/C) (FIM): 6 Toilet/Commode Transfer(FIM): 6 Toilet/Commode Transfer (QC): 6 Shower Transfer(FIM): 6 Additional Goals: 2-Verbalize Understanding, 3-ImproveStrength/Raheem 1=Demonstrate adherence to instructed precautions during ADL tasks. 2=Patient will verbalize/demonstrate understanding of assistive devices/ modifications for ADL. 3=Patient will improve strength/tolerance for activity to enable patient to perform ADL's. OT Education/Plan Problem List/Assessment Pt would benefit from skilled OT to increase his independence in basic ADLs to allow him to safely return to his home at [place] and decrease caregiver burden Discharge Recommendations Plan/Recommendations: Continue POC Treatment Plan/Plan of Care Patient would benefit from OT for education, treatment and training to promote independence in ADL's, mobility, safety and/or upper extremity function for ADL' s. Plan of Care: ADL Retraining, Functional Mobility, Group Exercise/Act as Ind ( education, exercise, activity tolerance, functional activities, socialization), UE Funct Exercise/Act, UE Neuromus Re-Ed/Coord Treatment Duration: Oct 14, 2016 Visits Per Week: 10-11 Minutes/Day (M-F): 75-90 Minutes/Day (Sat/[place]): PRN Agreement: Yes Rehab Potential: Fair Time/GCodes Start Time: 07:00 Stop Time: 08:00 Total Time Billed (hr/min): 60 Billed Treatment Time 1 visit-ADL 4 (60 min) CHUCHO HENRY Sep 20, 2016 07:56
[2016-09-20] MEDS: DIGOXIN 0.25 MG (LANOXIN) TAB PO SCH (08:39)
[2016-09-20] MEDS: ASPIRIN E.C. 81 MG (ECOTRIN) TAB PO SCH (08:39)
[2016-09-20] MEDS: guaiFENesin (MUCINEX) 600 MG TAB PO SCH ×2 (08:39→21:15)
[2016-09-20] MEDS: DOCUSATE SODIUM 100 MG (COLACE) CAP PO SCH ×2 (08:40→21:15)
[2016-09-20] MEDS: meTOproloL SUCCINATE 50 MG (TOPROL XL) TAB PO SCH (08:40)
[2016-09-20] MEDS: LORATADINE (CLARITIN) 10 MG TAB PO SCH (08:40)
[2016-09-20] MEDS: SPIRONOLACTONE 25 MG (ALDACTONE) TAB PO SCH (08:40)
[2016-09-20] MEDS: FLUTICASONE NASAL SPRAY (FLONASE) 16 GM BTL NS SCH (08:40)
[2016-09-20] MEDS: FINASTERIDE (PROSCAR) 5 MG TAB PO SCH (08:40)
--- NOTE | 2016-09-20 09:48 | Physical Therapy Daily Note ---
PT Daily Note-Current Subjective Patient agrees to PT. Patient continues to c/o SOA with minimal exertion. Pain Numeric Pain Scale: 0-No Pain Location: No Pain Reported Mental Status Patient Orientation: Normal For Age Attachments: Oxygen Transfers Functional [place] Measure 0=Not Assessed/NA 4=Minimal Assistance 1=Total Assistance 5=Supervision or Setup 2=Maximal Assistance 6=Modified [place] 3=Moderate Assistance 7=Complete IndependenceIRFPAI Quality Coding Scale 6 Independent with activity with or without an assistive device 5 Patient requires set up or clean up by helper. Patient completes activity by themselves 4 Supervision or touching assist (CGA). [place] provide cues , steadying assist 3 The helper provides less than half the effort to complete the activity 2 The helper provides more than half the effort to complete the activity 1 Dependent. The helper does all the effort to complete an activity 7 Patient refused to complete or attempt activity 9 The patient did not perform the activity before the current illness or injury 88 Not attempted due to Medical conditions or safety concerns Transfers (B, C, W/C) (FIM): 4 Scootin Sit to/from Stand: 4 Sit to Stand (QC): 4 CGA with use of gait belt for safety Gait Training Does the Patient Walk?: Yes Gait (FIM): 1 Distance (FIM): 1=up to 49 ft Distance: 40' x 4 Walk 10 feet (QC): 4 Gait Level of Assist: 4 Gait Persons Needed: 1 Gait Assistive Device: FWW very slow with multiple standing rest breaks due to SOA with O2 2-3L in place at all time. Exercises Seated Therapy Exercises: Ankle pumps, Long arc quads Seated Reps: 15 (3 sets) Assessment Patient progressing slowly due to severe debility. Patient requires much encouragement and education on performing activities to improve cardiopulmonary function with exercise and gait. PT to increase activity as tolerated by patient. PT Short Term Goals Short Term Goals Time Frame: Oct 01, 2016 Transfers (B,C,W/C) (FIM): 4 Gait (FIM): 2 Distance (FIM): 4=126-80 ft Gait Distance Comment: 50 Gait Level of Assist: 5 Gait Assistive Device: FWW PT Fdc Goals Fdc Goals PT Photograph Developer Goals Time Frame: Oct 15, 2016 Transfers (B,C,W/C) (FIM): 6 Sit to Lying (QC): 6 Lying-Sitting on Side/Bed(QC): 6 Sit to Stand (QC): 6 Rollin Roll Left to Right (QC): 6 Chair/Qvc-ur-Sydtv Xfer(QC): 6 Car Transfer (QC): 6 Does the Patient Walk: Yes Gait (FIM): 5 Gait distance (FIM): 5=514-96 ft Distance: 100 Walk 10 feet (QC): 6 Walk 10ft-Uneven Surface(QC): 6 Walk 50ft with 2 Turns (QC): 6 Walk 150 ft (QC): 9 Gait Level of Assist: 6 Gait Assistive Device: FWW Does the Pt use WC or Scooter?: No Stairs (FIM): 1 # of Steps: 1 1 Step (curb) (QC): 4 4 Steps (QC): 9 12 Steps (QC): 9 Stairs Level Of Assist: 4 Picking up an Object (QC): 6 PT Plan Treatment/Plan Treatment Plan: Continue Plan of Care Treatment Plan: Bed Mobility, Education, Functional Activity Raheem, Functional Strength, Group Therapy, Gait, Safety, Therapeutic Exercise, Transfers Treatment Duration: Oct 15, 2016 Visits Per Week: 10-11 Minutes/Day (M-F): 60-90 Minutes/Day (Sat/[place]): PRN Safety Risks/Education Patient Education: Gait Training, Disease Process Teaching Recipient: Patient Teaching Methods: Discussion Response to Teaching: Verbalize Understanding, Return Demonstration Discharge Recommendations Therapy D/C Recommendations: Assisted Living Time/GCodes Time In: 900 Time Out: 1000 Total Billed Treatment Time: 60 Total Billed Treatment 1 visit GT x 3 45 min EX 15 min PENG RESENDEZ PT Sep 20, 2016 09:48
--- NOTE | 2016-09-20 13:22 | Therapy Group Daily Note ---
Therapy Daily Group Note Patient Education Topic Other List Below Exercises LE Seated Exercise, UE Exercise Other/Notes Pt was an active participant in OT/PT group. He introduced himself and shared a September memory. He shared September trivia questions with the group and knew the answers to many of them. He also did seated exercises with a "September [place]" theme. He walked to and from group with FWW, CGA and was left up in his recliner, all needs met, O2 in place. Start Time: 13:00 Stop Time: 14:10 Total Billed Treatment Time: 70 Total Billed Treatment visit, 70 minutes group ADAM JACK OT Sep 20, 2016 13:22
[2016-09-20] MEDS: ALFUZOSIN HCL 10 MG TAB (UROXATRAL) PO SCH (17:57)
[2016-09-20 18:36] VITALS: BP 100/56
[2016-09-20] MEDS: traZODone 50 MG (DESYREL) TAB PO SCH (21:15)
[2016-09-20] MEDS: ATORVASTATIN 80 MG (LIPITOR) TABLET PO SCH (21:15)
[2016-09-20] MEDS: inSUlin DETERMIR 1 UNIT/0.01 ML (LEVEMIR) CHARGE PER UNIT SQ SCH (21:16)
[2016-09-21 05:23] VITALS: BP 109/70
[2016-09-21] MEDS: inSUlin (REGULAR) HUMAN 1 UNIT/0.01 ML (CHARGE PER UNIT) SC SCH ×4 (05:25→20:33)
[2016-09-21] MEDS: KCL 20 MEQ TAB (K-DUR) PO SCH (06:30)
[2016-09-21] MEDS: BUMETANIDE 1 MG (BUMEX) TAB PO SCH ×4 (06:30→23:04)
[2016-09-21] MEDS: PANTOPRAZOLE 40 MG (PROTONIX) TAB PO SCH ×2 (06:30→17:30)
[2016-09-21] MEDS: predniSONE 20 MG TAB PO SCH (06:30)
--- NOTE | 2016-09-21 08:15 | Occupational Ther Daily Note ---
OT Current Status-Daily Note Subjective Pt alert, lying in bed. Pt agreed to therapy. No c/o pain at this time. Mental Status/Objective Patient Orientation: Person, Place, Time, Situation Functional [place] Measure 0=Not Assessed/NA 4=Minimal Assistance 1=Total Assistance 5=Supervision or Setup 2=Maximal Assistance 6=Modified [place] 3=Moderate Assistance 7=Complete [place] Attachments: Oxygen, Telemetry ADL-Treatment Functional [place] Measure 0=Not Assessed/NA 4=Minimal Assistance 1=Total Assistance 5=Supervision or Setup 2=Maximal Assistance 6=Modified [place] 3=Moderate Assistance 7=Complete IndependenceIRFPAI Quality Coding Scale 6 Independent with activity with or without an assistive device 5 Patient requires set up or clean up by helper. Patient completes activity by themselves 4 Supervision or touching assist (CGA). [place] provide cues , steadying assist 3 The helper provides less than half the effort to complete the activity 2 The helper provides more than half the effort to complete the activity 1 Dependent. The helper does all the effort to complete an activity 7 Patient refused to complete or attempt activity 9 The patient did not perform the activity before the current illness or injury 88 Not attempted due to Medical conditions or safety concerns Eating (FIM): 5 (Set up. Pt able to use utensils to cut and feed self. Reach and grasp cups to bring to mouth and drink.) Bathing (FIM): 3 (Using shower bench, grabbar and hand held shower pt is able to complete with mod A. Pt required frequent recovery breaks during shower.) Bathing Location: L Arm, R Arm, L Upper Leg, R Upper Leg, Chest, Abdomen, Perineal Area Toileting (FIM): 4 (Pt had hospital gown on and pt was able to move it out of the way. Pt was able to cleanse [place]an area and assist to cleanse buttocks.) Transfers (B, C, W/C) (FIM): 4 (Min A to CGA using FWW.) Toilet/Commode Transfer (FIM): 4 (Using FWW and grabbars, pt able to complete with min A, assist to go from sit to stand.) Shower Transfer(FIM): 4 (Verbal cues and min A for shower transfer using FWW, grabbars and shower bench.) Pt takes increased time to complete ADLs due to decreased activity tolerance and SOA. Pt requires verbal cues for hand placement with push to stand. After therapy, pt lying in bed with nrsg present. Call light/phone in reach. All needs met in room. OT Short Term Goals Short Term Goals Time Frame: Sep 30, 2016 Grooming(FIM): 5 Toileting(FIM): 4 Transfers (B,C,W/C) (FIM): 4 Toilet/Commode Transfer(FIM): 5 Additional Short Term Goals: 2-Verbalize Understanding, 3-ImproveStrength/Raheem 1=Demonstrate adherence to instructed precautions during ADL tasks. 2=Patient will verbalize/demonstrate understanding of assistive devices/ modifications for ADL. 3=Patient will improve strength/tolerance for activity to enable patient to perform ADL's. OT Toby Maker Goals Toby Maker Goals Time Frame: Oct 14, 2016 Eating (FIM): 6 Eating (QC): 6 Groomin Oral Hygiene (QC): 6 Bathing(FIM): 6 Shower/Bathe Self (QC): 6 Upper Body Dressing(FIM): 6 Upper Body Dressing (QC): 6 Lower Body Dressing(FIM): 6 Lower Body Dressing (QC): 6 On/Off Footwear (QC): 6 Toileting(FIM): 6 Toileting Hygiene (QC): 6 Transfers (B,C,W/C) (FIM): 6 Toilet/Commode Transfer(FIM): 6 Toilet/Commode Transfer (QC): 6 Shower Transfer(FIM): 6 Additional Goals: 2-Verbalize Understanding, 3-ImproveStrength/Raheem 1=Demonstrate adherence to instructed precautions during ADL tasks. 2=Patient will verbalize/demonstrate understanding of assistive devices/ modifications for ADL. 3=Patient will improve strength/tolerance for activity to enable patient to perform ADL's. OT Education/Plan Problem List/Assessment Pt would benefit from skilled OT to increase his independence in basic ADLs to allow him to safely return to his home at [place] and decrease caregiver burden Discharge Recommendations Plan/Recommendations: Continue POC Treatment Plan/Plan of Care Patient would benefit from OT for education, treatment and training to promote independence in ADL's, mobility, safety and/or upper extremity function for ADL' s. Plan of Care: ADL Retraining, Functional Mobility, Group Exercise/Act as Ind ( education, exercise, activity tolerance, functional activities, socialization), UE Funct Exercise/Act, UE Neuromus Re-Ed/Coord Treatment Duration: Oct 14, 2016 Visits Per Week: 10-11 Minutes/Day (M-F): 75-90 Minutes/Day (Sat/[place]): PRN Agreement: Yes Rehab Potential: Fair Time/GCodes Start Time: 07:00 Stop Time: 08:30 Total Time Billed (hr/min): 90 Billed Treatment Time 1 visit-ADL 4 (60 min) FA 2 (30 min) CHUCHO HENRY Sep 21, 2016 08:15
[2016-09-21] MEDS: FLUTICASONE NASAL SPRAY (FLONASE) 16 GM BTL NS SCH (08:24)
[2016-09-21] MEDS: DOCUSATE SODIUM 100 MG (COLACE) CAP PO SCH ×2 (08:25→20:16)
[2016-09-21] MEDS: LORATADINE (CLARITIN) 10 MG TAB PO SCH (08:25)
[2016-09-21] MEDS: meTOproloL SUCCINATE 50 MG (TOPROL XL) TAB PO SCH (08:25)
[2016-09-21] MEDS: SPIRONOLACTONE 25 MG (ALDACTONE) TAB PO SCH (08:25)
[2016-09-21] MEDS: DIGOXIN 0.25 MG (LANOXIN) TAB PO SCH (08:25)
[2016-09-21] MEDS: guaiFENesin (MUCINEX) 600 MG TAB PO SCH ×2 (08:25→20:16)
[2016-09-21] MEDS: FINASTERIDE (PROSCAR) 5 MG TAB PO SCH (08:25)
[2016-09-21] MEDS: ASPIRIN E.C. 81 MG (ECOTRIN) TAB PO SCH (08:25)
--- NOTE | 2016-09-21 10:02 | Physical Therapy Daily Note ---
PT Daily Note-Current Subjective Pt. agrees to rx and states he is making regular progress, fatigues quickly but feels so grateful to be alive. Pain Numeric Pain Scale: 0-No Pain Mental Status Patient Orientation: Normal For Age Attachments: Oxygen (2L) Transfers Functional [place] Measure 0=Not Assessed/NA 4=Minimal Assistance 1=Total Assistance 5=Supervision or Setup 2=Maximal Assistance 6=Modified [place] 3=Moderate Assistance 7=Complete IndependenceIRFPAI Quality Coding Scale 6 Independent with activity with or without an assistive device 5 Patient requires set up or clean up by helper. Patient completes activity by themselves 4 Supervision or touching assist (CGA). [place] provide cues , steadying assist 3 The helper provides less than half the effort to complete the activity 2 The helper provides more than half the effort to complete the activity 1 Dependent. The helper does all the effort to complete an activity 7 Patient refused to complete or attempt activity 9 The patient did not perform the activity before the current illness or injury 88 Not attempted due to Medical conditions or safety concerns Transfers (B, C, W/C) (FIM): 4 Scootin Rollin Supine to/from Sit: 4 Sit to/from Stand: 4 CGA to min for sup to side to sit Gait Training Does the Patient Walk?: Yes Gait (FIM): 1 Distance (FIM): 1=up to 49 ft (15-20ft x5) Gait Level of Assist: 4 Gait Persons Needed: 1 Gait Assistive Device: FWW w/c to follow and assist for O2 Exercises Seated Therapy Exercises: Ankle pumps, Sit to stand, Long arc quads, Hip flexion Seated Reps: 10 Treatments to gym for sup to sit on flat surface and discussed pts. situation at home for getting in out bed Assessment Current Status: Good Progress regular progress in all aspects, fatigues quickly, sats >90% at all times PT Short Term Goals Short Term Goals Time Frame: Oct 01, 2016 Transfers (B,C,W/C) (FIM): 4 Gait (FIM): 2 Distance (FIM): 5=715-02 ft Gait Distance Comment: 50 Gait Level of Assist: 5 Gait Assistive Device: FWW PT [facility] Goals [facility] Goals PT [facility] Goals Time Frame: Oct 15, 2016 Transfers (B,C,W/C) (FIM): 6 Sit to Lying (QC): 6 Lying-Sitting on Side/Bed(QC): 6 Sit to Stand (QC): 6 Rollin Roll Left to Right (QC): 6 Chair/Bvy-vc-Nnraf Xfer(QC): 6 Car Transfer (QC): 6 Does the Patient Walk: Yes Gait (FIM): 5 Gait distance (FIM): 8=440-71 ft Distance: 100 Walk 10 feet (QC): 6 Walk 10ft-Uneven Surface(QC): 6 Walk 50ft with 2 Turns (QC): 6 Walk 150 ft (QC): 9 Gait Level of Assist: 6 Gait Assistive Device: FWW Does the Pt use WC or Scooter?: No Stairs (FIM): 1 # of Steps: 1 1 Step (curb) (QC): 4 4 Steps (QC): 9 12 Steps (QC): 9 Stairs Level Of Assist: 4 Picking up an Object (QC): 6 PT Plan Treatment/Plan Treatment Plan: Continue Plan of Care Treatment Plan: Bed Mobility, Education, Functional Activity Raheem, Functional Strength, Group Therapy, Gait, Safety, Therapeutic Exercise, Transfers Treatment Duration: Oct 15, 2016 Visits Per Week: 10-11 Minutes/Day (M-F): 60-90 Minutes/Day (Sat/[place]): PRN Safety Risks/Education Patient Education: Gait Training, Transfer Techniques Teaching Recipient: Patient Teaching Methods: Demonstration, Discussion Response to Teaching: Verbalize Understanding, Return Demonstration, Reinforcement Needed Time/GCodes Time In: 900 Time Out: 1000 Total Billed Treatment Time: 60 Total Billed Treatment 1,FA30m,GT30m G Codes Necessary: MEE Silva BACKHOE OPERATOR Sep 21, 2016 10:02
--- NOTE | 2016-09-21 11:13 | Progress Note-Hospitalist ---
Progress Note HPI/CC on Admission CC: Medical management following CABG w/aortic valve replacement HPI: This is a 74yoWM clinic patient of Dr Multani [place] [facility] [place] with s/ p uncomplicated CABG and aortic valve replacement by Dr Zafar on 08/10/16 and has since returned to IRU for recovery. RN called me with AF w/RVR and Dr Barahona graciously managed that last evening. Currently his bowels are moving and overall feeling better each and every day. Denies any pain and is using the IS and EZ-pap. 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 for left inner thigh wound from graft site Medical Student Review: Pt denies having pain and has no complaints Pt has been ambulating Pt has had a BM this am Has been eating and drinking well Patient Interview: Pt's leg wound does not look bad, but I do not want it to get worse so I discussed wound care with him Physical exam stable. Pt just wants to get better AFVSS, Pleasant, O x 3 Irr Irr, CTAB No change in 2+ edema lower legs Left inner thigh with 3cm wound no erythema Assessment: Status post bypass surgery with aortic valve replacement uncomplicated Overall debility Atrial fibrillation with rapid ventricular response managed by cardiology yesterday Hypertension Hyperlipidemia Anemia status post major cardiac surgery Edema Left thigh wound from graft site Plan: Monitor atrial fibrillation closely Monitor hemoglobin closely Rehabilitation protocol Confer with Dr. Barbosa for wound care Scribed by Tameka Romano under the direct supervision of Dr. Armendariz. BUCK ARMENDARIZ DO Sep 21, 2016 11:13
--- NOTE | 2016-09-21 13:55 | Physical Therapy Daily Note ---
PT Daily Note-Current Subjective Pt. agrees to Rx. Explains the situation at [facility] and feels he will meet the goal of returning there given some time. C/o only of fatigue this PM after Rx. Pain Numeric Pain Scale: 0-No Pain Mental Status Patient Orientation: Normal For Age Attachments: Oxygen Transfers Functional [place] Measure 0=Not Assessed/NA 4=Minimal Assistance 1=Total Assistance 5=Supervision or Setup 2=Maximal Assistance 6=Modified [place] 3=Moderate Assistance 7=Complete IndependenceIRFPAI Quality Coding Scale 6 Independent with activity with or without an assistive device 5 Patient requires set up or clean up by helper. Patient completes activity by themselves 4 Supervision or touching assist (CGA). [place] provide cues , steadying assist 3 The helper provides less than half the effort to complete the activity 2 The helper provides more than half the effort to complete the activity 1 Dependent. The helper does all the effort to complete an activity 7 Patient refused to complete or attempt activity 9 The patient did not perform the activity before the current illness or injury 88 Not attempted due to Medical conditions or safety concerns sup to sit min assist . sit to sup CGA, sit to stand SBA Gait Training Does the Patient Walk?: Yes Gait Assistive Device: FWW 30ftx2, 10ftx1 slow, FWW O2 insitu and w/c to f/u Wheelchair Training Type of Wheelchair: Manual pt. manuevered w/c 12ft x 2 using brakes and turning left and right etc. Exercises Supine Ex: Ankle pumps, Quad Set, Rolling, Heel Slides, Hip abd/add Supine Reps: 12 Seated Therapy Exercises: Sit to stand, Long arc quads Seated Reps: 8 Treatments in bed after Rx, waiting for wound care to arrive Assessment Current Status: Good Progress increased functional mobility and strength ea Rx. PT Short Term Goals Short Term Goals Time Frame: Oct 01, 2016 Transfers (B,C,W/C) (FIM): 4 Gait (FIM): 2 Distance (FIM): 7=864-03 ft Gait Distance Comment: 50 Gait Level of Assist: 5 Gait Assistive Device: FWW PT Assisted Goals Cassandra Developer Goals PT Assisted Goals Time Frame: Oct 15, 2016 Transfers (B,C,W/C) (FIM): 6 Sit to Lying (QC): 6 Lying-Sitting on Side/Bed(QC): 6 Sit to Stand (QC): 6 Rollin Roll Left to Right (QC): 6 Chair/Naj-sk-Pfwxc Xfer(QC): 6 Car Transfer (QC): 6 Does the Patient Walk: Yes Gait (FIM): 5 Gait distance (FIM): 3=932-44 ft Distance: 100 Walk 10 feet (QC): 6 Walk 10ft-Uneven Surface(QC): 6 Walk 50ft with 2 Turns (QC): 6 Walk 150 ft (QC): 9 Gait Level of Assist: 6 Gait Assistive Device: FWW Does the Pt use WC or Scooter?: No Stairs (FIM): 1 # of Steps: 1 1 Step (curb) (QC): 4 4 Steps (QC): 9 12 Steps (QC): 9 Stairs Level Of Assist: 4 Picking up an Object (QC): 6 PT Plan Treatment/Plan Treatment Plan: Continue Plan of Care Treatment Plan: Bed Mobility, Education, Functional Activity Raheem, Functional Strength, Group Therapy, Gait, Safety, Therapeutic Exercise, Transfers Treatment Duration: Oct 15, 2016 Visits Per Week: 10-11 Minutes/Day (M-F): 60-90 Minutes/Day (Sat/[place]): PRN Safety Risks/Education Patient Education: Gait Training, Transfer Techniques, Correct Positioning, W/ C Management, Safety Issues Teaching Recipient: Patient Teaching Methods: Demonstration, Discussion Response to Teaching: Verbalize Understanding, Return Demonstration, Reinforcement Needed Time/GCodes Time In: 1330 Time Out: 1400 Total Billed Treatment Time: 30 Total Billed Treatment 1,FA30m G Codes Necessary: MEE Silva MAT SEWER Sep 21, 2016 13:55
[2016-09-21] MEDS: ALFUZOSIN HCL 10 MG TAB (UROXATRAL) PO SCH (17:30)
[2016-09-21 18:09] VITALS: BP 105/66
[2016-09-21] MEDS: traZODone 50 MG (DESYREL) TAB PO SCH (20:16)
[2016-09-21] MEDS: ATORVASTATIN 80 MG (LIPITOR) TABLET PO SCH (20:16)
--- NOTE | 2016-09-21 20:28 | PM & R (SOAP) Progress Note ---
Subjective Time Seen by Provider: 12:50 Subjective/Events-last exam Patient was seen in his room earlier today Has some drainage fro left thigh wound Dressing changes made Patient CGA for transfers Appreciate Dr Abdalla and Franchesca notes and orders A FIB well controlled Accuchecks elevated will check HGBA1C Will recheck LFTS as well See orders Objective Exam Last Set of Vital Signs Vital Signs Date Time Temp Pulse Resp B/P (MAP) Pulse Ox O2 Delivery O2 Flow Rate FiO2 09/21/16 09:00 Nasal Cannula 2.00 09/21/16 07:00 89 09/21/16 05:23 98.6 20 109/70 99 Capillary Refill : I&O Intake and Output 09/21/16 00:00 Intake Total 2090 ml Output Total 2930 ml Balance -840 ml Intake Oral 2090 ml Output Urine Total 2930 ml # Bowel Movements 1 General: Alert, Oriented X3, Cooperative, No Acute Distress HEENT: Atraumatic, PERRLA Neck: Supple, No JVD Lungs: Clear to Auscultation Heart: Other (irregular rate) Abdomen: Normal Bowel Sounds, Soft, No Tenderness Extremities: Other (trace edema) Skin: Other (drainage left thigh incision) Neuro: Other (Generalized weakness) Results Lab Laboratory Tests 09/18/16 20:51: Glucometer 122H 09/18/16 23:20: Glucometer 77 09/18/16 23:31: Glucometer 73 09/18/16 23:37: Glucometer 76 09/18/16 23:49: Glucometer 98 09/19/16 00:46: Glucometer 152H 09/19/16 04:41: Glucometer 146H 09/19/16 10:55: Glucometer 145H 09/19/16 16:08: Glucometer 132H 09/19/16 20:04: Glucometer 168H 09/19/16 22:19: Glucometer 119H 09/19/16 23:09: Troponin I < 0.30 09/20/16 04:57: Glucometer 118H, Troponin I < 0.30 09/20/16 11:07: Glucometer 145H 09/20/16 15:44: Glucometer 216H 09/20/16 20:44: Glucometer 143H 09/21/16 04:56: Glucometer 107 09/21/16 11:01: Glucometer 157H 09/21/16 16:10: Glucometer 224H Assessment/Plan Assessment S/P AVR and CaBG OSH Resp insufficiency o2 dependent Hyperglyemia Elevated LFTS Postop AFIB controlled with meds Plan Continue PT/OT F/U with DR Holbrook and Jun as per carmelita bedolla Wound care addressed -See orders Check Labs as per above Team Conference held earlier today-See report for full functional update and POC NEGRITO THOMPSON MD Sep 21, 2016 20:28
[2016-09-21] MEDS: inSUlin DETERMIR 1 UNIT/0.01 ML (LEVEMIR) CHARGE PER UNIT SQ SCH (20:33)
[2016-09-21] MEDS: RT-ALBUTEROL SULF 2.5 MG/3 ML PRE-MIX VIAL IH PRN (23:24)
[2016-09-22 05:00] VITALS: BP 95/60
[2016-09-22] MEDS: inSUlin (REGULAR) HUMAN 1 UNIT/0.01 ML (CHARGE PER UNIT) SC SCH ×4 (06:08→20:50)
[2016-09-22] MEDS: BUMETANIDE 1 MG (BUMEX) TAB PO SCH ×3 (06:10→17:28)
[2016-09-22] MEDS: PANTOPRAZOLE 40 MG (PROTONIX) TAB PO SCH ×2 (06:10→17:28)
[2016-09-22] MEDS: predniSONE 20 MG TAB PO SCH (06:10)
[2016-09-22] MEDS: KCL 20 MEQ TAB (K-DUR) PO SCH (06:10)
[2016-09-22 06:44] LABS: ALANINE AMINOTRANSFERASE 54 U/L (0-55); ANION GAP 10 MMOL/L (5-14); ASPARTATE AMINO TRANSFERASE 33 U/L (5-34); BILIRUBIN,TOTAL 1.6 MG/DL (0.1-1.0); BLOOD UREA NITROGEN 30 MG/DL (7-18); BUN/CREATININE RATIO 30; CALCIUM 9.3 MG/DL (8.5-10.1); CARBON DIOXIDE 32 MMOL/L (21-32); CHLORIDE 94 MMOL/L (98-107); CREATININE SERUM 0.99 MG/DL (0.60-1.30); GFR ESTIMATED > 60; GLUCOSE 92 MG/DL (70-105); POTASSIUM 3.7 MMOL/L (3.6-5.0); SODIUM 136 MMOL/L (135-145); TOTAL PROTEIN 6.1 GM/DL (6.4-8.2)
--- NOTE | 2016-09-22 08:25 | Occupational Ther Daily Note ---
OT Current Status-Daily Note Subjective Pt alert, lying in bed. Pt agreed to therapy. No c/o pain. Mental Status/Objective Patient Orientation: Person, Place, Time, Situation Functional [place] Measure 0=Not Assessed/NA 4=Minimal Assistance 1=Total Assistance 5=Supervision or Setup 2=Maximal Assistance 6=Modified [place] 3=Moderate Assistance 7=Complete [place] Attachments: Oxygen (1L) ADL-Treatment Pt agreed to sponge bath today. Using raised HOB pt was able to push self up to sitting on EOB then pushed to stand by self. Pt ambulated to bathroom using FWW with CGA. Transferred to toilet using grabbar and FWW with SBA. Pt increased SOA. Pt was able to cleanse susan area by self and reached buttocks to cleanse though not effective. Pt ambulated back to recliner to complete sponge bath. Pt took increased time to complete sponge bath due to frequent recovery breaks. Pt was able to bathe upper body, upper legs. After set up, pt was able to don shirt with recovery break after threading arms through sleeves then after pulling down body. Min A to don shorts, assist to thread feet then pt was able to hike over hips with SBA. Dependent donning/doffing socks. Pt was able to open milk carton by self. Pt has demonstrated progress with endurance, is able to complete more steps at once before requiring a recovery break. After therapy. Pt sitting in recliner with feet elevated, call light/phone in reach. All needs met in room. Functional [place] Measure 0=Not Assessed/NA 4=Minimal Assistance 1=Total Assistance 5=Supervision or Setup 2=Maximal Assistance 6=Modified [place] 3=Moderate Assistance 7=Complete IndependenceIRFPAI Quality Coding Scale 6 Independent with activity with or without an assistive device 5 Patient requires set up or clean up by helper. Patient completes activity by themselves 4 Supervision or touching assist (CGA). [place] provide cues , steadying assist 3 The helper provides less than half the effort to complete the activity 2 The helper provides more than half the effort to complete the activity 1 Dependent. The helper does all the effort to complete an activity 7 Patient refused to complete or attempt activity 9 The patient did not perform the activity before the current illness or injury 88 Not attempted due to Medical conditions or safety concerns Bathing (FIM): 4 Bathing Location: L Arm, R Arm, L Upper Leg, R Upper Leg, Chest, Abdomen, Buttocks, Perineal Area Upper Body (FIM): 5 Lower Body Dressing (FIM): 3 Toileting (FIM): 4 Transfers (B, C, W/C) (FIM): 4 Toilet/Commode Transfer (FIM): 4 OT Short Term Goals Short Term Goals Time Frame: Sep 30, 2016 Grooming(FIM): 5 Toileting(FIM): 4 Transfers (B,C,W/C) (FIM): 4 Toilet/Commode Transfer(FIM): 5 Additional Short Term Goals: 2-Verbalize Understanding, 3-ImproveStrength/Raheem 1=Demonstrate adherence to instructed precautions during ADL tasks. 2=Patient will verbalize/demonstrate understanding of assistive devices/ modifications for ADL. 3=Patient will improve strength/tolerance for activity to enable patient to perform ADL's. OT Clay Transporter Goals [facility] Goals Time Frame: Oct 14, 2016 Eating (FIM): 6 Eating (QC): 6 Groomin Oral Hygiene (QC): 6 Bathing(FIM): 6 Shower/Bathe Self (QC): 6 Upper Body Dressing(FIM): 6 Upper Body Dressing (QC): 6 Lower Body Dressing(FIM): 6 Lower Body Dressing (QC): 6 On/Off Footwear (QC): 6 Toileting(FIM): 6 Toileting Hygiene (QC): 6 Transfers (B,C,W/C) (FIM): 6 Toilet/Commode Transfer(FIM): 6 Toilet/Commode Transfer (QC): 6 Shower Transfer(FIM): 6 Additional Goals: 2-Verbalize Understanding, 3-ImproveStrength/Raheem 1=Demonstrate adherence to instructed precautions during ADL tasks. 2=Patient will verbalize/demonstrate understanding of assistive devices/ modifications for ADL. 3=Patient will improve strength/tolerance for activity to enable patient to perform ADL's. OT Education/Plan Problem List/Assessment Pt would benefit from skilled OT to increase his independence in basic ADLs to allow him to safely return to his home at [place] and decrease caregiver burden Discharge Recommendations Plan/Recommendations: Continue POC Treatment Plan/Plan of Care Patient would benefit from OT for education, treatment and training to promote independence in ADL's, mobility, safety and/or upper extremity function for ADL' s. Plan of Care: ADL Retraining, Functional Mobility, Group Exercise/Act as Ind ( education, exercise, activity tolerance, functional activities, socialization), UE Funct Exercise/Act, UE Neuromus Re-Ed/Coord Treatment Duration: Oct 14, 2016 Visits Per Week: 10-11 Minutes/Day (M-F): 75-90 Minutes/Day (Sat/[place]): PRN Agreement: Yes Rehab Potential: Fair Time/GCodes Start Time: 07:00 Stop Time: 08:30 Total Time Billed (hr/min): 90 Billed Treatment Time 1 visit-ADL 6 (90 min) CHUCHO HENRY Sep 22, 2016 08:25
[2016-09-22] MEDS: guaiFENesin (MUCINEX) 600 MG TAB PO SCH ×2 (08:32→21:13)
[2016-09-22] MEDS: DIGOXIN 0.25 MG (LANOXIN) TAB PO SCH (08:32)
[2016-09-22] MEDS: ASPIRIN E.C. 81 MG (ECOTRIN) TAB PO SCH (08:32)
[2016-09-22] MEDS: LORATADINE (CLARITIN) 10 MG TAB PO SCH (08:33)
[2016-09-22] MEDS: SPIRONOLACTONE 25 MG (ALDACTONE) TAB PO SCH (08:33)
[2016-09-22] MEDS: DOCUSATE SODIUM 100 MG (COLACE) CAP PO SCH ×2 (08:33→21:13)
[2016-09-22] MEDS: meTOproloL SUCCINATE 50 MG (TOPROL XL) TAB PO SCH (08:33)
[2016-09-22] MEDS: FINASTERIDE (PROSCAR) 5 MG TAB PO SCH (08:33)
[2016-09-22] MEDS: FLUTICASONE NASAL SPRAY (FLONASE) 16 GM BTL NS SCH (08:35)
--- NOTE | 2016-09-22 08:57 | PM & R (SOAP) Progress Note ---
Subjective Time Seen by Provider: 07:35 Subjective/Events-last exam Patient was seen in his room this AM Patient Min assist for transfers Peripheral edema in ankles improving with diuresis.Wound/incision site doing better left thigh with dressing change HGBA1C <6 assume Steroid induced Hyperglycemia Objective Exam Last Set of Vital Signs Vital Signs Date Time Temp Pulse Resp B/P (MAP) Pulse Ox O2 Delivery O2 Flow Rate FiO2 09/22/16 05:00 98.6 66 22 95/60 96 Nasal Cannula 2.00 Capillary Refill : I&O Intake and Output 09/22/16 00:00 Intake Total 1320 ml Output Total 1600 ml Balance -280 ml Intake Oral 1320 ml Output Urine Total 1600 ml General: Alert, Oriented X3, Cooperative, No Acute Distress HEENT: Atraumatic, PERRLA Neck: Supple, No JVD Lungs: Clear to Auscultation Heart: Other (irregular rate) Abdomen: Normal Bowel Sounds, Soft, No Tenderness Extremities: Other (trace edema) Skin: Other (drainage left thigh incision) Neuro: Other (Generalized weakness) Results Lab Laboratory Tests 09/19/16 10:55: Glucometer 145H 09/19/16 16:08: Glucometer 132H 09/19/16 20:04: Glucometer 168H 09/19/16 22:19: Glucometer 119H 09/19/16 23:09: Troponin I < 0.30 09/20/16 04:57: Troponin I < 0.30, Glucometer 118H 09/20/16 11:07: Glucometer 145H 09/20/16 15:44: Glucometer 216H 09/20/16 20:44: Glucometer 143H 09/21/16 04:56: Glucometer 107 09/21/16 11:01: Glucometer 157H 09/21/16 16:10: Glucometer 224H 09/21/16 20:23: Glucometer 211H 09/22/16 05:34: Glucometer 99, Sodium Level 136, Potassium Level 3.7, Chloride Level 94L, Carbon Dioxide Level 32, Anion Gap 10, Blood Urea Nitrogen 30H, Creatinine 0.99 , Estimat Glomerular Filtration Rate > 60, BUN/Creatinine Ratio 30, Glucose Level 92, Hemoglobin A1c 5.1, Calcium Level 9.3, Total Bilirubin 1.6H, Aspartate Amino Transf (AST/SGOT) 33, Alanine Aminotransferase (ALT/SGPT) 54, Alkaline Phosphatase 117, Total Protein 6.1L, Albumin 4.0 Assessment/Plan Assessment S/P AVR and CaBG OSH Resp insufficiency o2 dependent Hyperglyemia-steroid induced Elevated LFTS Postop AFIB controlled with meds Plan Continue PT/OT F/U with DR Holbrook and Jun as per carmelita bedolla Wound care addressed -See orders Check Labs as per above-done Team Conference held yesterday-See report for full functional update and POC NEGRITO THOMPSON MD Sep 22, 2016 08:57
--- NOTE | 2016-09-22 12:57 | Physical Therapy Daily Note ---
PT Daily Note-Current Subjective Pt sitting in recliner upon arrival. Pt reports no pain and feeling pretty good today. Pt's having trouble keeping his pants up, exchanged pants for different pair. Pt agreed to PT. Pain Numeric Pain Scale: 0-No Pain Mental Status Patient Orientation: Person, Place, Time, Situation Attachments: Oxygen (1L) Transfers Functional [place] Measure 0=Not Assessed/NA 4=Minimal Assistance 1=Total Assistance 5=Supervision or Setup 2=Maximal Assistance 6=Modified [place] 3=Moderate Assistance 7=Complete IndependenceIRFPAI Quality Coding Scale 6 Independent with activity with or without an assistive device 5 Patient requires set up or clean up by helper. Patient completes activity by themselves 4 Supervision or touching assist (CGA). [place] provide cues , steadying assist 3 The helper provides less than half the effort to complete the activity 2 The helper provides more than half the effort to complete the activity 1 Dependent. The helper does all the effort to complete an activity 7 Patient refused to complete or attempt activity 9 The patient did not perform the activity before the current illness or injury 88 Not attempted due to Medical conditions or safety concerns Scootin Sit to/from Stand: 5 Sit to Lying (QC): 5 Sit to Stand (QC): 5 Weight Bearing Weight Bearing Restriction: Full Weight Bearing Location Restriction: LE Bilateral Exercises Seated Therapy Exercises: Ankle pumps, Long arc quads, Hip flexion, Kicking activity Seated Reps: 15 Treatments Pt stood from recliner at SBA w/o AD to use urinal at start of tx. Pt completed several sit to stands from recliner. Pt could not keep shorts up while standing to ambulate so exchanged/changed shorts with another extra pair of shorts from ARU. Pt completed Seated Ex while sitting in recliner due to fatigue. Pt also had questions about ARU and how a pt discharges, if pt was improving. Pt rested in recliner at end of tx with all needs met. Assessment Current Status: Fair Progress Pt fatigues easy and requires frequent rest breaks. PT Short Term Goals Short Term Goals Time Frame: Oct 01, 2016 Transfers (B,C,W/C) (FIM): 4 Gait (FIM): 2 Distance (FIM): 3=404-59 ft Gait Distance Comment: 50 Gait Level of Assist: 5 Gait Assistive Device: FWW PT Tool And Gauge Inspector Goals Tool And Gauge Inspector Goals PT [facility] Goals Time Frame: Oct 15, 2016 Transfers (B,C,W/C) (FIM): 6 Sit to Lying (QC): 6 Lying-Sitting on Side/Bed(QC): 6 Sit to Stand (QC): 6 Rollin Roll Left to Right (QC): 6 Chair/Bxb-cf-Mnzao Xfer(QC): 6 Car Transfer (QC): 6 Does the Patient Walk: Yes Gait (FIM): 5 Gait distance (FIM): 2=764-23 ft Distance: 100 Walk 10 feet (QC): 6 Walk 10ft-Uneven Surface(QC): 6 Walk 50ft with 2 Turns (QC): 6 Walk 150 ft (QC): 9 Gait Level of Assist: 6 Gait Assistive Device: FWW Does the Pt use WC or Scooter?: No Stairs (FIM): 1 # of Steps: 1 1 Step (curb) (QC): 4 4 Steps (QC): 9 12 Steps (QC): 9 Stairs Level Of Assist: 4 Picking up an Object (QC): 6 PT Plan Problem List Problem List: Activity Tolerance, Functional Strength, Safety, Balance, Gait Treatment/Plan Treatment Plan: Continue Plan of Care Treatment Plan: Bed Mobility, Education, Functional Activity Raheem, Functional Strength, Group Therapy, Gait, Safety, Therapeutic Exercise, Transfers Treatment Duration: Oct 15, 2016 Frequency: At least 5-7 days/Wk (IRF) Estimated Hrs Per Day: 1.5 hours per day Patient and/or Family Agrees t: Yes Safety Risks/Education Patient Education: Transfer Techniques, Correct Positioning, Disease Process, Safety Issues Teaching Recipient: Patient Teaching Methods: Discussion Response to Teaching: Verbalize Understanding Time/GCodes Time In: 900 Time Out: 1000 Total Billed Treatment Time: 60 Total Billed Treatment visit, FA x3 (40m) & EX (20m) EMMA BELTRE PTA Sep 22, 2016 12:56
--- NOTE | 2016-09-22 15:28 | Physical Therapy Daily Note ---
PT Daily Note-Current Subjective Pt sitting in recliner after finishing lunch. Pt agrees to PT. Pain Location: No Pain Reported Mental Status Patient Orientation: Person, Place, Time, Situation Attachments: Oxygen (1L) Transfers Functional [place] Measure 0=Not Assessed/NA 4=Minimal Assistance 1=Total Assistance 5=Supervision or Setup 2=Maximal Assistance 6=Modified [place] 3=Moderate Assistance 7=Complete IndependenceIRFPAI Quality Coding Scale 6 Independent with activity with or without an assistive device 5 Patient requires set up or clean up by helper. Patient completes activity by themselves 4 Supervision or touching assist (CGA). [place] provide cues , steadying assist 3 The helper provides less than half the effort to complete the activity 2 The helper provides more than half the effort to complete the activity 1 Dependent. The helper does all the effort to complete an activity 7 Patient refused to complete or attempt activity 9 The patient did not perform the activity before the current illness or injury 88 Not attempted due to Medical conditions or safety concerns Scootin Sit to/from Stand: 5 Sit to Stand (QC): 5 Weight Bearing Weight Bearing Restriction: Full Weight Bearing Location Restriction: LE Bilateral Gait Training Does the Patient Walk?: Yes Distance (FIM): 3=207-96 ft Distance: 60' Walk 10 feet (QC): 5 Walk 50 ft with 2 Turns(QC): 5 Gait Level of Assist: 5 Gait Persons Needed: 1 Gait Assistive Device: FWW Pt fatigues easy and needs rest breaks after 20-25'. Wheelchair Training Does the Pt Use a Wheelchair?: Yes Wheelchair Distance: 1=up to 49 ft Distance: 25' Wheelchair Level of Assist: 5 Type of Wheelchair: Manual Treatments Pt stood at recliner to use urinal at SBA w/o AD. Pt ambulates using FWW at A , rests in WC every 20-25'. Pt returns to room via WC due to fatigue. Pt able to propel WCH approx. 20' and SPT to recliner to rest at end of tx with all needs met. Assessment Current Status: Fair Progress Pt is using less O2 during tx and is transferring more independently although still fatigues easy and needs frequent rest breaks. PT Short Term Goals Short Term Goals Time Frame: Oct 01, 2016 Transfers (B,C,W/C) (FIM): 4 Gait (FIM): 2 Distance (FIM): 9=472-63 ft Gait Distance Comment: 50 Gait Level of Assist: 5 Gait Assistive Device: FWW PT Correction Goals Correction Goals PT Golf Club Repairer Goals Time Frame: Oct 15, 2016 Transfers (B,C,W/C) (FIM): 6 Sit to Lying (QC): 6 Lying-Sitting on Side/Bed(QC): 6 Sit to Stand (QC): 6 Rollin Roll Left to Right (QC): 6 Chair/Pzj-qh-Gbpnc Xfer(QC): 6 Car Transfer (QC): 6 Does the Patient Walk: Yes Gait (FIM): 5 Gait distance (FIM): 8=732-92 ft Distance: 100 Walk 10 feet (QC): 6 Walk 10ft-Uneven Surface(QC): 6 Walk 50ft with 2 Turns (QC): 6 Walk 150 ft (QC): 9 Gait Level of Assist: 6 Gait Assistive Device: FWW Does the Pt use WC or Scooter?: No Stairs (FIM): 1 # of Steps: 1 1 Step (curb) (QC): 4 4 Steps (QC): 9 12 Steps (QC): 9 Stairs Level Of Assist: 4 Picking up an Object (QC): 6 PT Plan Problem List Problem List: Activity Tolerance, Functional Strength, Safety, Balance, Gait Treatment/Plan Treatment Plan: Continue Plan of Care Treatment Plan: Bed Mobility, Education, Functional Activity Raheem, Functional Strength, Group Therapy, Gait, Safety, Therapeutic Exercise, Transfers Treatment Duration: Oct 15, 2016 Frequency: At least 5-7 days/Wk (IRF) Estimated Hrs Per Day: 1.5 hours per day Patient and/or Family Agrees t: Yes Safety Risks/Education Patient Education: Gait Training, Transfer Techniques, Correct Positioning, Safety Issues Teaching Recipient: Patient Teaching Methods: Discussion Response to Teaching: Verbalize Understanding Time/GCodes Time In: 1330 Time Out: 1400 Total Billed Treatment Time: 30 Total Billed Treatment visit, FA (10m) & GT (20m) EMMA BELTRE PTA Sep 22, 2016 15:28
[2016-09-22] MEDS: ALFUZOSIN HCL 10 MG TAB (UROXATRAL) PO SCH (17:28)
[2016-09-22 18:15] VITALS: BP 90/54
[2016-09-22] MEDS: RT-ALBUTEROL SULF 2.5 MG/3 ML PRE-MIX VIAL IH PRN (19:18)
[2016-09-22 21:12] VITALS: BP 104/65
[2016-09-22] MEDS: traZODone 50 MG (DESYREL) TAB PO SCH (21:13)
[2016-09-22] MEDS: ATORVASTATIN 80 MG (LIPITOR) TABLET PO SCH (21:13)
[2016-09-22] MEDS: inSUlin DETERMIR 1 UNIT/0.01 ML (LEVEMIR) CHARGE PER UNIT SQ SCH (21:14)
[2016-09-23] MEDS: BUMETANIDE 1 MG (BUMEX) TAB PO SCH ×4 (00:13→17:19)
[2016-09-23] MEDS: ACETAMINOPHEN 325 MG TABLET/CAPLET (TYLENOL) PO PRN (02:05)
[2016-09-23 05:03] VITALS: BP 102/60
[2016-09-23] MEDS: inSUlin (REGULAR) HUMAN 1 UNIT/0.01 ML (CHARGE PER UNIT) SC SCH ×4 (05:11→20:30)
[2016-09-23] MEDS: predniSONE 20 MG TAB PO SCH (06:04)
[2016-09-23] MEDS: PANTOPRAZOLE 40 MG (PROTONIX) TAB PO SCH ×2 (06:04→16:23)
[2016-09-23] MEDS: KCL 20 MEQ TAB (K-DUR) PO SCH (06:04)
--- NOTE | 2016-09-23 07:45 | Occupational Ther Daily Note ---
OT Current Status-Daily Note Subjective Pt alert, lying in bed. Pt agreed to therapy. Pt had already eaten breakfast. No c/o pain. Mental Status/Objective Patient Orientation: Person, Place, Time, Situation Functional [place] Measure 0=Not Assessed/NA 4=Minimal Assistance 1=Total Assistance 5=Supervision or Setup 2=Maximal Assistance 6=Modified [place] 3=Moderate Assistance 7=Complete [place] Attachments: IV, Oxygen ADL-Treatment Functional [place] Measure 0=Not Assessed/NA 4=Minimal Assistance 1=Total Assistance 5=Supervision or Setup 2=Maximal Assistance 6=Modified [place] 3=Moderate Assistance 7=Complete IndependenceIRFPAI Quality Coding Scale 6 Independent with activity with or without an assistive device 5 Patient requires set up or clean up by helper. Patient completes activity by themselves 4 Supervision or touching assist (CGA). [place] provide cues , steadying assist 3 The helper provides less than half the effort to complete the activity 2 The helper provides more than half the effort to complete the activity 1 Dependent. The helper does all the effort to complete an activity 7 Patient refused to complete or attempt activity 9 The patient did not perform the activity before the current illness or injury 88 Not attempted due to Medical conditions or safety concerns Bathing (FIM): 5 (Using grabbar, shower bench and hand held shower pt is able to complete bathing with SBA.) Bathing Location: L Arm, R Arm, L Upper Leg, R Upper Leg, L Lower Leg ( including foot), R Lower Leg (including foot), Chest, Abdomen, Buttocks, Perineal Area Upper Body (FIM): 5 (Completes after set up by self.) Lower Body Dressing (FIM): 2 (Increased fatigue after shower and bowel movement , pt required increased assistance for lower body dressing.) Toileting (FIM): 4 (Using grabbar and FWW, pt is able to manipulate clothing and cleanse susan area then assist to cleanse buttocks effectively.) Transfers (B, C, W/C) (FIM): 4 (Assist to go from sit to stand, pt is able to complete with FWW.) Toilet/Commode Transfer (FIM): 5 (SBA using FWW and grabbar, pt is able to complete transfer.) Shower Transfer(FIM): 5 (SBA using FWW, shower bench and grabbar, pt is able to complete transfer.) OT Short Term Goals Short Term Goals Time Frame: Sep 30, 2016 Grooming(FIM): 5 Toileting(FIM): 4 Transfers (B,C,W/C) (FIM): 4 Toilet/Commode Transfer(FIM): 5 Additional Short Term Goals: 2-Verbalize Understanding, 3-ImproveStrength/Raheem 1=Demonstrate adherence to instructed precautions during ADL tasks. 2=Patient will verbalize/demonstrate understanding of assistive devices/ modifications for ADL. 3=Patient will improve strength/tolerance for activity to enable patient to perform ADL's. OT Rotary Swaging Machine Operator Goals Rotary Swaging Machine Operator Goals Time Frame: Oct 14, 2016 Eating (FIM): 6 Eating (QC): 6 Groomin Oral Hygiene (QC): 6 Bathing(FIM): 6 Shower/Bathe Self (QC): 6 Upper Body Dressing(FIM): 6 Upper Body Dressing (QC): 6 Lower Body Dressing(FIM): 6 Lower Body Dressing (QC): 6 On/Off Footwear (QC): 6 Toileting(FIM): 6 Toileting Hygiene (QC): 6 Transfers (B,C,W/C) (FIM): 6 Toilet/Commode Transfer(FIM): 6 Toilet/Commode Transfer (QC): 6 Shower Transfer(FIM): 6 Additional Goals: 2-Verbalize Understanding, 3-ImproveStrength/Raheem 1=Demonstrate adherence to instructed precautions during ADL tasks. 2=Patient will verbalize/demonstrate understanding of assistive devices/ modifications for ADL. 3=Patient will improve strength/tolerance for activity to enable patient to perform ADL's. OT Education/Plan Problem List/Assessment Pt would benefit from skilled OT to increase his independence in basic ADLs to allow him to safely return to his home at [place] and decrease caregiver burden Discharge Recommendations Plan/Recommendations: Continue POC Treatment Plan/Plan of Care Patient would benefit from OT for education, treatment and training to promote independence in ADL's, mobility, safety and/or upper extremity function for ADL' s. Plan of Care: ADL Retraining, Functional Mobility, Group Exercise/Act as Ind ( education, exercise, activity tolerance, functional activities, socialization), UE Funct Exercise/Act, UE Neuromus Re-Ed/Coord Treatment Duration: Oct 14, 2016 Frequency: Twice Daily (M-F, PRN weekends) Estimated Hrs Per Day: 1.5 hours per day (M-F, PRN weekends) Agreement: Yes Rehab Potential: Fair Time/GCodes Start Time: 07:00 Stop Time: 07:55 Total Time Billed (hr/min): 55 Billed Treatment Time 1 visit-FA 4 (55 min) CHUCHO HENRY Sep 23, 2016 07:45
[2016-09-23 08:54] VITALS: BP 110/67
--- NOTE | 2016-09-23 08:55 | Physical Therapy Daily Note ---
PT Daily Note-Current Subjective Patient just complete with OT and agrees to PT. Pain Numeric Pain Scale: 0-No Pain Location: No Pain Reported Mental Status Patient Orientation: Normal For Age Attachments: Oxygen (2L continuous) Transfers Functional [place] Measure 0=Not Assessed/NA 4=Minimal Assistance 1=Total Assistance 5=Supervision or Setup 2=Maximal Assistance 6=Modified [place] 3=Moderate Assistance 7=Complete IndependenceIRFPAI Quality Coding Scale 6 Independent with activity with or without an assistive device 5 Patient requires set up or clean up by helper. Patient completes activity by themselves 4 Supervision or touching assist (CGA). [place] provide cues , steadying assist 3 The helper provides less than half the effort to complete the activity 2 The helper provides more than half the effort to complete the activity 1 Dependent. The helper does all the effort to complete an activity 7 Patient refused to complete or attempt activity 9 The patient did not perform the activity before the current illness or injury 88 Not attempted due to Medical conditions or safety concerns Transfers (B, C, W/C) (FIM): 5 Scootin Sit to/from Stand: 5 Sit to Stand (QC): 5 Car Transfer (QC): 5 Gait Training Does the Patient Walk?: Yes Gait (FIM): 2 Distance (FIM): 7=423-00 ft Distance: 50' x 3; 150' x 2 Walk 10 feet (QC): 5 Walk 50 ft with 2 Turns(QC): 5 Walk 150 ft (QC): 5 Gait Level of Assist: 5 Gait Persons Needed: 1 Gait Assistive Device: FWW patient demonstrates functional gait sequence, however, requires sitting recovery periods due to SOA with O2 3L in place Exercises Seated Therapy Exercises: Ankle pumps, Long arc quads Seated Reps: 20 NuStep Minutes: 15 (bilateral LE only; utilized to improve cardiopulmonary function) NuStep Workload: 1 Assessment Patient is progressing with treatment plan and is highly motivated with progress. Exercises and ambulation utilized to facilitate cardiopulmonary function. PT Short Term Goals Short Term Goals Time Frame: Oct 01, 2016 Transfers (B,C,W/C) (FIM): 4 Gait (FIM): 2 Distance (FIM): 2=072-58 ft Gait Distance Comment: 50 Gait Level of Assist: 5 Gait Assistive Device: FWW Wheelchair Distance: 25' PT Offline Editor Goals Offline Editor Goals PT Offline Editor Goals Time Frame: Oct 15, 2016 Transfers (B,C,W/C) (FIM): 6 Sit to Lying (QC): 6 Lying-Sitting on Side/Bed(QC): 6 Sit to Stand (QC): 6 Rollin Roll Left to Right (QC): 6 Chair/Trw-rc-Fjghl Xfer(QC): 6 Car Transfer (QC): 6 Does the Patient Walk: Yes Gait (FIM): 5 Gait distance (FIM): 5=839-39 ft Distance: 100 Walk 10 feet (QC): 6 Walk 10ft-Uneven Surface(QC): 6 Walk 50ft with 2 Turns (QC): 6 Walk 150 ft (QC): 9 Gait Level of Assist: 6 Gait Assistive Device: FWW Does the Pt use WC or Scooter?: No Stairs (FIM): 1 # of Steps: 1 1 Step (curb) (QC): 4 4 Steps (QC): 9 12 Steps (QC): 9 Stairs Level Of Assist: 4 Picking up an Object (QC): 6 PT Plan Treatment/Plan Treatment Plan: Continue Plan of Care Treatment Plan: Bed Mobility, Education, Functional Activity Raheem, Functional Strength, Group Therapy, Gait, Safety, Therapeutic Exercise, Transfers Treatment Duration: Oct 15, 2016 Frequency: At least 5-7 days/Wk (IRF) Estimated Hrs Per Day: 1.5 hours per day Patient and/or Family Agrees t: Yes Discharge Recommendations Therapy D/C Recommendations: Assisted Living Time/GCodes Time In: 755 Time Out: 855 Total Billed Treatment Time: 60 Total Billed Treatment 1 visit EX 20 min GT x 3 40 min PENG RESENDEZ PT Sep 23, 2016 08:55
[2016-09-23] MEDS: SPIRONOLACTONE 25 MG (ALDACTONE) TAB PO SCH (08:57)
[2016-09-23] MEDS: LORATADINE (CLARITIN) 10 MG TAB PO SCH (08:57)
[2016-09-23] MEDS: meTOproloL SUCCINATE 50 MG (TOPROL XL) TAB PO SCH (08:57)
[2016-09-23] MEDS: DIGOXIN 0.25 MG (LANOXIN) TAB PO SCH (08:57)
[2016-09-23] MEDS: FINASTERIDE (PROSCAR) 5 MG TAB PO SCH (08:57)
[2016-09-23] MEDS: DOCUSATE SODIUM 100 MG (COLACE) CAP PO SCH ×2 (08:57→20:23)
[2016-09-23] MEDS: ASPIRIN E.C. 81 MG (ECOTRIN) TAB PO SCH (08:57)
[2016-09-23] MEDS: guaiFENesin (MUCINEX) 600 MG TAB PO SCH ×2 (08:57→20:23)
[2016-09-23] MEDS: FLUTICASONE NASAL SPRAY (FLONASE) 16 GM BTL NS SCH (08:59)
--- NOTE | 2016-09-23 09:09 | PM & R (SOAP) Progress Note ---
Subjective Time Seen by Provider: 08:10 Subjective/Events-last exam Patient was seen in gym Fatiques easily with ambulation Remains on 02 postop will check CXR Patient SBA for transfers dressing on left thigh intact Review of Systems Pulmonary: Dyspnea Objective Exam Last Set of Vital Signs Vital Signs Date Time Temp Pulse Resp B/P (MAP) Pulse Ox O2 Delivery O2 Flow Rate FiO2 09/23/16 08:54 85 110/67 97 Nasal Cannula 1.00 09/23/16 05:03 98.9 18 Capillary Refill : I&O Intake and Output 09/23/16 00:00 Intake Total 1670 ml Output Total 2975 ml Balance -1305 ml Intake Oral 1670 ml Output Urine Total 2975 ml # Bowel Movements 1 General: Alert, Oriented X3, Cooperative, No Acute Distress HEENT: Atraumatic, PERRLA Neck: Supple, No JVD Lungs: Clear to Auscultation Heart: Other (irregular rate) Abdomen: Normal Bowel Sounds, Soft, No Tenderness Extremities: Other (trace edema) Skin: Other (drainage left thigh incision) Neuro: Other (Generalized weakness) Results Lab Laboratory Tests 09/20/16 11:07: Glucometer 145H 09/20/16 15:44: Glucometer 216H 09/20/16 20:44: Glucometer 143H 09/21/16 04:56: Glucometer 107 09/21/16 11:01: Glucometer 157H 09/21/16 16:10: Glucometer 224H 09/21/16 20:23: Glucometer 211H 09/22/16 05:34: Glucometer 99, Sodium Level 136, Potassium Level 3.7, Chloride Level 94L, Carbon Dioxide Level 32, Anion Gap 10, Blood Urea Nitrogen 30H, Creatinine 0.99 , Estimat Glomerular Filtration Rate > 60, BUN/Creatinine Ratio 30, Glucose Level 92, Hemoglobin A1c 5.1, Calcium Level 9.3, Total Bilirubin 1.6H, Aspartate Amino Transf (AST/SGOT) 33, Alanine Aminotransferase (ALT/SGPT) 54, Alkaline Phosphatase 117, Total Protein 6.1L, Albumin 4.0 09/22/16 10:57: Glucometer 239H 09/22/16 16:21: Glucometer 122H 09/22/16 20:19: Glucometer 187H 09/23/16 04:35: Glucometer 95 Assessment/Plan Assessment S/P AVR and CaBG OSH Resp insufficiency o2 dependent Hyperglyemia-steroid induced Elevated LFTS Postop AFIB controlled with meds Plan Continue PT/OT F/U with DR Holbrook and Jun as per carmelita bedolla Wound care addressed -See orders Check Labs as per above-done Team Conference held 09-21-16-See report for full functional update and POC Check CXR See orders Discussed case with RN Patient having BMS NEGRITO THOMPSON MD Sep 23, 2016 09:08
[2016-09-23] MEDS ORDERED: LACTULOSE SYRUP 10GM/15ML (ENULOSE) 30ML UDC PO PRN (10:30)
--- NOTE | 2016-09-23 11:01 | Occupational Ther Daily Note ---
OT Current Status-Daily Note Subjective Pt alert, sitting in recliner. Pt agreed to therapy. No c/o pain at this time. Mental Status/Objective Patient Orientation: Person, Place, Time, Situation Functional [place] Measure 0=Not Assessed/NA 4=Minimal Assistance 1=Total Assistance 5=Supervision or Setup 2=Maximal Assistance 6=Modified [place] 3=Moderate Assistance 7=Complete [place] Attachments: IV, Oxygen (1L) ADL-Treatment Functional [place] Measure 0=Not Assessed/NA 4=Minimal Assistance 1=Total Assistance 5=Supervision or Setup 2=Maximal Assistance 6=Modified [place] 3=Moderate Assistance 7=Complete IndependenceIRFPAI Quality Coding Scale 6 Independent with activity with or without an assistive device 5 Patient requires set up or clean up by helper. Patient completes activity by themselves 4 Supervision or touching assist (CGA). [place] provide cues , steadying assist 3 The helper provides less than half the effort to complete the activity 2 The helper provides more than half the effort to complete the activity 1 Dependent. The helper does all the effort to complete an activity 7 Patient refused to complete or attempt activity 9 The patient did not perform the activity before the current illness or injury 88 Not attempted due to Medical conditions or safety concerns Grooming (FIM): 5 Other Treatment Lower body AE was demonstrated to pt to don/doff socks. Pt demonstrated understanding of equipment and was able to use equipment efficiently. Then pt was set up for shaving. Pt was able to shave self, preferred not to use soap to shave with. After therapy, pt sitting in recliner with feet elevated. Call light/phone in reach. All needs met in room. Education OT Patient Education: Use of adapted equipment Teaching Recipient: Patient Teaching Methods: Demonstration Response to Teaching: Verbalize Understanding, Return Demonstration OT Short Term Goals Short Term Goals Time Frame: Sep 30, 2016 Grooming(FIM): 5 Toileting(FIM): 4 Transfers (B,C,W/C) (FIM): 4 Toilet/Commode Transfer(FIM): 5 Additional Short Term Goals: 2-Verbalize Understanding, 3-ImproveStrength/Raheem 1=Demonstrate adherence to instructed precautions during ADL tasks. 2=Patient will verbalize/demonstrate understanding of assistive devices/ modifications for ADL. 3=Patient will improve strength/tolerance for activity to enable patient to perform ADL's. OT [facility] Goals [facility] Goals Time Frame: Oct 14, 2016 Eating (FIM): 6 Eating (QC): 6 Groomin Oral Hygiene (QC): 6 Bathing(FIM): 6 Shower/Bathe Self (QC): 6 Upper Body Dressing(FIM): 6 Upper Body Dressing (QC): 6 Lower Body Dressing(FIM): 6 Lower Body Dressing (QC): 6 On/Off Footwear (QC): 6 Toileting(FIM): 6 Toileting Hygiene (QC): 6 Transfers (B,C,W/C) (FIM): 6 Toilet/Commode Transfer(FIM): 6 Toilet/Commode Transfer (QC): 6 Shower Transfer(FIM): 6 Additional Goals: 2-Verbalize Understanding, 3-ImproveStrength/Raheem 1=Demonstrate adherence to instructed precautions during ADL tasks. 2=Patient will verbalize/demonstrate understanding of assistive devices/ modifications for ADL. 3=Patient will improve strength/tolerance for activity to enable patient to perform ADL's. OT Education/Plan Problem List/Assessment Pt would benefit from skilled OT to increase his independence in basic ADLs to allow him to safely return to his home at [place] and decrease caregiver burden Discharge Recommendations Plan/Recommendations: Continue POC Treatment Plan/Plan of Care Patient would benefit from OT for education, treatment and training to promote independence in ADL's, mobility, safety and/or upper extremity function for ADL' s. Plan of Care: ADL Retraining, Functional Mobility, Group Exercise/Act as Ind ( education, exercise, activity tolerance, functional activities, socialization), UE Funct Exercise/Act, UE Neuromus Re-Ed/Coord Treatment Duration: Oct 14, 2016 Frequency: Twice Daily (M-F, PRN weekends) Estimated Hrs Per Day: 1.5 hours per day (M-F, PRN weekends) Agreement: Yes Rehab Potential: Fair Time/GCodes Start Time: 10:45 Stop Time: 11:00 Total Time Billed (hr/min): 15 Billed Treatment Time 1 visit-FA 1 (15 min) CHUCHO HENRY Sep 23, 2016 11:01
--- NOTE | 2016-09-23 11:03 | Progress Note-Hospitalist ---
Progress Note HPI/CC on Admission CC: Medical management following CABG w/aortic valve replacement HPI: This is a 74yoWM clinic patient [place] Dr Multani [place] [facility] [place] that presents with s/ p uncomplicated CABG and aortic valve replacement by Dr Zafar on 08/10/16 and has since returned to IRU for recovery. RN called me with AF w/RVR and Dr Barahona graciously managed that last evening. Currently his bowels are moving and overall feeling better each and every day. Denies any pain and is using the IS and EZ-pap. Progress Notes/Assess & Plan Date Seen 09/23/16 Time Seen by Provider: 10:00 Admission Dx/Process Assessment: Status post bypass surgery with aortic valve replacement uncomplicated Overall debility Atrial fibrillation with rapid ventricular response managed by cardiology yesterday Hypertension Hyperlipidemia Anemia status post major cardiac surgery Edema Diagonsis/Assessment & Plan application spec: Pt had a large BM that took him a while and was hard. Pt is currently on Col[facility] Dr. Wu ordered CXR. Pt is only on 1 L and they were trying to get him off O2. Patient Interview: Pt is doing well today. Lactulose was added and this was discussed. Pt agrees that he needs something for BMs Pt believes wound care is going well Physical exam stable. Pt had one breathing treatment last night. Pt states that they were trying to get him off his O2. Pt was off from 1900 to 0200. Pt confirms using IS Pt has been able to get out of bed without help. Pt is excited that he was able to take showers this week, by himself. AFVSS, [place], O x 3 Irr Irr, CTAB except subtle crackles bases Improved change in 1+ edema lower legs Assessment: Status post bypass surgery with aortic valve replacement uncomplicated Overall debility Atrial fibrillation with rapid ventricular response managed by cardiology yesterday Hypertension Hyperlipidemia Anemia status post major cardiac surgery Edema Left thigh wound from graft site Plan: Lactulose BID prn Continue IS and breathing treatments Scribed by Tameka Romano under the direct supervision of Dr. Armendariz. BUCK ARMENDARIZ DO Sep 23, 2016 11:03
--- NOTE | 2016-09-23 12:24 | Diagnostic Imaging Report ---
EXAM: PA and lateral views of the chest. COMPARISON: 05/21/2016. INDICATION: CABG and aortic valve replacement. FINDINGS: There is pulmonary hyperinflation and dilatation of the left hemidiaphragm similar to 05/21/2016. Left basilar atelectasis is noted. There are also mild opacities at the medial upper left lung and the lateral lower right lung. The heart size is enlarged. Sternotomy wires are seen. There is a replacement of 2 valves, probably aortic and mitral. Surgical clips in the upper abdomen are also seen. IMPRESSION: Cardiomegaly. Mild opacities in the medial upper left and lateral lower right lung zones could relate to pneumonia. Correlate clinically and with followup exams. Dictated by: Dictated on workstation # [id number]
--- NOTE | 2016-09-23 14:21 | Therapy Group Daily Note ---
Therapy Daily Group Note Other/Notes Each patient participated in group therapy in the common area of the rehab floor. Each patient ambulated or was transported to the common area to sit with the other patients. Then, each patient had to introduce themselves, state where they were from and answer a group question that involves memory and socialization. Then, each patient had to perform several upper extremity and shoulder exercises. Finally, patient had to participate in an activity/game that involved UE ROM, digital manipulation, memory, and problem solving. At the end of group therapy, each patient ambulated or was transported back to their room and put in bed or chair with nurse call, phone, tray, all needs met. Start Time: 13:00 Stop Time: 14:15 Total Billed Treatment Time: 75 Total Billed Treatment 1 visit GRP 75' ELIANE BRANDT PT Sep 23, 2016 14:21
[2016-09-23] MEDS: ALFUZOSIN HCL 10 MG TAB (UROXATRAL) PO SCH (17:19)
[2016-09-23 18:16] VITALS: BP 107/57
--- NOTE | 2016-09-23 18:44 | Wound Care Progress Note ---
Subjective Subjective Subjective/Events-last exam the patient is a 76-year-old gentleman recovering from open heart combined valve replacement and bypass in July of this year. He has 2 residual open wounds in the left medial thigh, secondary to vein harvest. He has moderate pain in these wounds. Past Medical History: Coronary artery disease, valvular heart disease, congestive heart failure, debility. Family history: Noncontributory. Social history: Recent . Lives alone. Review of Systems Date Seen by Provider: Sep 23, 2016 Time Seen by Provider: 18:30 General: No Chills Pulmonary: No Dyspnea Cardiovascular: No: Chest Pain Objective Exam Last Set of Vital Signs Vital Signs Date Time Temp Pulse Resp B/P (MAP) Pulse Ox O2 Delivery O2 Flow Rate FiO2 09/23/16 18:16 98.9 75 22 107/57 98 Nasal Cannula 1.00 Capillary Refill : I&O Intake and Output 09/23/16 00:00 Intake Total 1670 ml Output Total 2975 ml Balance -1305 ml Intake Oral 1670 ml Output Urine Total 2975 ml # Bowel Movements 1 General: Alert, No Acute Distress Lungs: Normal Air Movement Skin: Other (Left medial thigh, upper -- 4.2 x 2.1 x 0.6 cm, 50% granulation, 50% slough; L medial thigh, lower. -- 2.7 x 0.6 x 0.2 cm, 100% slough.) Results Lab Laboratory Tests 09/22/16 20:19: Glucometer 187H 09/23/16 04:35: Glucometer 95 09/23/16 10:40: Glucometer 147H 09/23/16 16:05: Glucometer 142H Assessment/Plan Assessment/Plan Assessment/Plan 1. Nonhealing surgical wounds, x 2, left medial thigh, full thickness. 2. Coronary artery disease, s/p aortic valve replacement, CABG. 3. Debility. Plan: Change to Dakin's dressings, BID. ELIZABET FLORES MD Sep 23, 2016 18:43
[2016-09-23] MEDS ORDERED: DAKIN'S 1/4 STRENGTH (0.125%) 473 ML BTL TOP SCH (20:00)
[2016-09-23] MEDS: ATORVASTATIN 80 MG (LIPITOR) TABLET PO SCH (20:23)
[2016-09-23] MEDS: traZODone 50 MG (DESYREL) TAB PO SCH (20:23)
[2016-09-23] MEDS: MENTHOL/ZINC OXIDE (CALMOSEPTINE) 113 GM TUBE TOP SCH (20:24)
[2016-09-23] MEDS: RT-ALBUTEROL SULF 2.5 MG/3 ML PRE-MIX VIAL IH PRN (20:26)
[2016-09-23] MEDS: DAKIN'S 1/4 STRENGTH (0.125%) 473 ML BTL TOP SCH (20:30)
[2016-09-23] MEDS: inSUlin DETERMIR 1 UNIT/0.01 ML (LEVEMIR) CHARGE PER UNIT SQ SCH (20:31)
[2016-09-24] MEDS: BUMETANIDE 1 MG (BUMEX) TAB PO SCH ×4 (00:02→17:03)
[2016-09-24] MEDS: RT-ALBUTEROL SULF 2.5 MG/3 ML PRE-MIX VIAL IH PRN ×2 (03:57→07:45)
[2016-09-24 05:08] VITALS: BP 90/51
[2016-09-24] MEDS: inSUlin (REGULAR) HUMAN 1 UNIT/0.01 ML (CHARGE PER UNIT) SC SCH ×4 (06:34→20:35)
[2016-09-24] MEDS: predniSONE 20 MG TAB PO SCH (06:35)
[2016-09-24] MEDS: PANTOPRAZOLE 40 MG (PROTONIX) TAB PO SCH ×2 (06:35→17:03)
[2016-09-24] MEDS: KCL 20 MEQ TAB (K-DUR) PO SCH (06:35)
[2016-09-24] MEDS: DIGOXIN 0.25 MG (LANOXIN) TAB PO SCH (08:40)
[2016-09-24] MEDS: SPIRONOLACTONE 25 MG (ALDACTONE) TAB PO SCH (08:40)
[2016-09-24] MEDS: meTOproloL SUCCINATE 50 MG (TOPROL XL) TAB PO SCH (08:40)
[2016-09-24] MEDS: guaiFENesin (MUCINEX) 600 MG TAB PO SCH ×2 (08:40→20:36)
[2016-09-24] MEDS: DOCUSATE SODIUM 100 MG (COLACE) CAP PO SCH ×2 (08:40→20:35)
[2016-09-24] MEDS: LORATADINE (CLARITIN) 10 MG TAB PO SCH (08:41)
[2016-09-24] MEDS: ASPIRIN E.C. 81 MG (ECOTRIN) TAB PO SCH (08:41)
[2016-09-24] MEDS: FINASTERIDE (PROSCAR) 5 MG TAB PO SCH (08:41)
[2016-09-24] MEDS: FLUTICASONE NASAL SPRAY (FLONASE) 16 GM BTL NS SCH (08:43)
[2016-09-24] MEDS: MENTHOL/ZINC OXIDE (CALMOSEPTINE) 113 GM TUBE TOP SCH ×2 (08:44→20:35)
[2016-09-24] MEDS: DAKIN'S 1/4 STRENGTH (0.125%) 473 ML BTL TOP SCH ×2 (08:44→20:37)
--- NOTE | 2016-09-24 09:15 | Physical Therapy Daily Note ---
PT Daily Note-Current Subjective Patient agrees to PT. No c/o at this time. Pain Numeric Pain Scale: 0-No Pain Location: No Pain Reported Mental Status Patient Orientation: Normal For Age Attachments: Oxygen (2L NC) Transfers Functional [place] Measure 0=Not Assessed/NA 4=Minimal Assistance 1=Total Assistance 5=Supervision or Setup 2=Maximal Assistance 6=Modified [place] 3=Moderate Assistance 7=Complete IndependenceIRFPAI Quality Coding Scale 6 Independent with activity with or without an assistive device 5 Patient requires set up or clean up by helper. Patient completes activity by themselves 4 Supervision or touching assist (CGA). [place] provide cues , steadying assist 3 The helper provides less than half the effort to complete the activity 2 The helper provides more than half the effort to complete the activity 1 Dependent. The helper does all the effort to complete an activity 7 Patient refused to complete or attempt activity 9 The patient did not perform the activity before the current illness or injury 88 Not attempted due to Medical conditions or safety concerns Transfers (B, C, W/C) (FIM): 5 Scootin Sit to/from Stand: 5 Sit to Stand (QC): 5 Gait Training Does the Patient Walk?: Yes Gait (FIM): 5 Distance (FIM): 3=150 ft Distance: 150' x 1; 200' x 1 Walk 10 feet (QC): 5 Walk 50 ft with 2 Turns(QC): 5 Walk 150 ft (QC): 5 Gait Level of Assist: 5 Gait Assistive Device: FWW safe and functional Assessment Much improved cardiopulmonary functional with mobility/ambulation with O2 3L NC in place. Patient continues to be motivated with progress. PT Short Term Goals Short Term Goals Time Frame: Oct 01, 2016 Transfers (B,C,W/C) (FIM): 4 Gait (FIM): 2 Distance (FIM): 5=057-02 ft Gait Distance Comment: 50 Gait Level of Assist: 5 Gait Assistive Device: FWW Wheelchair Distance: 25' PT Electric Wirer Goals Senior Living Goals PT Senior Living Goals Time Frame: Oct 15, 2016 Transfers (B,C,W/C) (FIM): 6 Sit to Lying (QC): 6 Lying-Sitting on Side/Bed(QC): 6 Sit to Stand (QC): 6 Rollin Roll Left to Right (QC): 6 Chair/Oyf-mz-Afnxw Xfer(QC): 6 Car Transfer (QC): 6 Does the Patient Walk: Yes Gait (FIM): 5 Gait distance (FIM): 9=340-73 ft Distance: 100 Walk 10 feet (QC): 6 Walk 10ft-Uneven Surface(QC): 6 Walk 50ft with 2 Turns (QC): 6 Walk 150 ft (QC): 9 Gait Level of Assist: 6 Gait Assistive Device: FWW Does the Pt use WC or Scooter?: No Stairs (FIM): 1 # of Steps: 1 1 Step (curb) (QC): 4 4 Steps (QC): 9 12 Steps (QC): 9 Stairs Level Of Assist: 4 Picking up an Object (QC): 6 PT Plan Treatment/Plan Treatment Plan: Continue Plan of Care Treatment Plan: Bed Mobility, Education, Functional Activity Raheem, Functional Strength, Group Therapy, Gait, Safety, Therapeutic Exercise, Transfers Treatment Duration: Oct 15, 2016 Frequency: At least 5-7 days/Wk (IRF) Estimated Hrs Per Day: 1.5 hours per day Patient and/or Family Agrees t: Yes Time/GCodes Time In: 850 Time Out: 905 Total Billed Treatment Time: 15 Total Billed Treatment 1 visit FA 15 min PENG RESENDEZ PT Sep 24, 2016 09:15
[2016-09-24] MEDS: ALFUZOSIN HCL 10 MG TAB (UROXATRAL) PO SCH (17:07)
[2016-09-24 18:03] VITALS: BP 97/58
[2016-09-24] MEDS: inSUlin DETERMIR 1 UNIT/0.01 ML (LEVEMIR) CHARGE PER UNIT SQ SCH (20:35)
[2016-09-24] MEDS: traZODone 50 MG (DESYREL) TAB PO SCH (20:36)
[2016-09-24] MEDS: ATORVASTATIN 80 MG (LIPITOR) TABLET PO SCH (20:36)
[2016-09-25] MEDS: BUMETANIDE 1 MG (BUMEX) TAB PO SCH ×5 (00:35→23:14)
[2016-09-25] MEDS: RT-ALBUTEROL SULF 2.5 MG/3 ML PRE-MIX VIAL IH PRN (02:44)
[2016-09-25 05:25] VITALS: BP 90/44
[2016-09-25] MEDS: inSUlin (REGULAR) HUMAN 1 UNIT/0.01 ML (CHARGE PER UNIT) SC SCH ×4 (05:28→21:39)
[2016-09-25] MEDS: PANTOPRAZOLE 40 MG (PROTONIX) TAB PO SCH ×2 (06:19→18:05)
[2016-09-25] MEDS: predniSONE 20 MG TAB PO SCH (06:19)
[2016-09-25] MEDS: KCL 20 MEQ TAB (K-DUR) PO SCH (06:19)
[2016-09-25] MEDS: RT-ALBUTEROL SULF 2.5 MG/3 ML PRE-MIX VIAL IH SCH ×4 (06:53→19:06)
[2016-09-25] MEDS: UMECLIDINIUM BROMIDE (INCRUSE ELLIPTA) 7'S IH SCH (06:54)
[2016-09-25] MEDS: MENTHOL/ZINC OXIDE (CALMOSEPTINE) 113 GM TUBE TOP SCH ×2 (07:43→20:28)
[2016-09-25] MEDS: DAKIN'S 1/4 STRENGTH (0.125%) 473 ML BTL TOP SCH ×2 (07:43→20:27)
[2016-09-25] MEDS: FLUTICASONE NASAL SPRAY (FLONASE) 16 GM BTL NS SCH (07:44)
[2016-09-25] MEDS: guaiFENesin (MUCINEX) 600 MG TAB PO SCH ×2 (07:50→20:23)
[2016-09-25] MEDS: DOCUSATE SODIUM 100 MG (COLACE) CAP PO SCH ×2 (07:50→20:23)
[2016-09-25] MEDS: LORATADINE (CLARITIN) 10 MG TAB PO SCH (07:51)
[2016-09-25] MEDS: ASPIRIN E.C. 81 MG (ECOTRIN) TAB PO SCH (07:51)
[2016-09-25] MEDS: SPIRONOLACTONE 25 MG (ALDACTONE) TAB PO SCH (07:51)
[2016-09-25] MEDS: meTOproloL SUCCINATE 50 MG (TOPROL XL) TAB PO SCH (07:51)
[2016-09-25] MEDS: FINASTERIDE (PROSCAR) 5 MG TAB PO SCH (07:51)
[2016-09-25] MEDS: DIGOXIN 0.25 MG (LANOXIN) TAB PO SCH (07:52)
[2016-09-25] MEDS ORDERED: RT-SYMBICORT 160/4.5 MCG INHALER PER PUFF IH SCH (08:00)
[2016-09-25] MEDS ORDERED: TIOTROPIUM BROMIDE (SPIRIVA) 5'S INHALER IH SCH (08:00)
[2016-09-25] MEDS: ALFUZOSIN HCL 10 MG TAB (UROXATRAL) PO SCH (18:04)
[2016-09-25 18:09] VITALS: BP 105/63
[2016-09-25] MEDS: RT-ADVAIR HFA 115/21 MCG PER PUFF IH SCH (19:06)
[2016-09-25] MEDS: traZODone 50 MG (DESYREL) TAB PO SCH (20:23)
[2016-09-25] MEDS: ATORVASTATIN 80 MG (LIPITOR) TABLET PO SCH (20:23)
[2016-09-25] MEDS: inSUlin DETERMIR 1 UNIT/0.01 ML (LEVEMIR) CHARGE PER UNIT SQ SCH (20:25)
[2016-09-25] MEDS: ACETAMINOPHEN 325 MG TABLET/CAPLET (TYLENOL) PO PRN (23:24)
[2016-09-26 05:03] VITALS: BP 114/64
[2016-09-26] MEDS: inSUlin (REGULAR) HUMAN 1 UNIT/0.01 ML (CHARGE PER UNIT) SC SCH ×4 (05:44→21:03)
[2016-09-26] MEDS: KCL 20 MEQ TAB (K-DUR) PO SCH (06:04)
[2016-09-26] MEDS: predniSONE 20 MG TAB PO SCH (06:04)
[2016-09-26] MEDS: PANTOPRAZOLE 40 MG (PROTONIX) TAB PO SCH ×2 (06:04→16:18)
[2016-09-26] MEDS: BUMETANIDE 1 MG (BUMEX) TAB PO SCH ×4 (06:04→23:19)
[2016-09-26] MEDS: RT-ALBUTEROL SULF 2.5 MG/3 ML PRE-MIX VIAL IH SCH ×4 (06:37→18:57)
[2016-09-26] MEDS: RT-ADVAIR HFA 115/21 MCG PER PUFF IH SCH ×2 (06:38→18:57)
[2016-09-26] MEDS: UMECLIDINIUM BROMIDE (INCRUSE ELLIPTA) 7'S IH SCH (06:38)
[2016-09-26] MEDS: FINASTERIDE (PROSCAR) 5 MG TAB PO SCH (08:00)
[2016-09-26] MEDS: guaiFENesin (MUCINEX) 600 MG TAB PO SCH ×2 (08:00→21:03)
[2016-09-26] MEDS: DOCUSATE SODIUM 100 MG (COLACE) CAP PO SCH ×2 (08:00→21:03)
[2016-09-26] MEDS: FLUTICASONE NASAL SPRAY (FLONASE) 16 GM BTL NS SCH (08:00)
[2016-09-26] MEDS: LORATADINE (CLARITIN) 10 MG TAB PO SCH (08:00)
[2016-09-26] MEDS: ASPIRIN E.C. 81 MG (ECOTRIN) TAB PO SCH (08:00)
[2016-09-26] MEDS: DIGOXIN 0.25 MG (LANOXIN) TAB PO SCH (08:00)
[2016-09-26] MEDS: meTOproloL SUCCINATE 50 MG (TOPROL XL) TAB PO SCH (08:00)
[2016-09-26] MEDS: SPIRONOLACTONE 25 MG (ALDACTONE) TAB PO SCH (08:00)
[2016-09-26] MEDS: DAKIN'S 1/4 STRENGTH (0.125%) 473 ML BTL TOP SCH ×2 (08:01→21:03)
[2016-09-26] MEDS: MENTHOL/ZINC OXIDE (CALMOSEPTINE) 113 GM TUBE TOP SCH ×2 (08:01→21:04)
--- NOTE | 2016-09-26 08:19 | Occupational Ther Daily Note ---
OT Current Status-Daily Note Subjective Pt alert, lying in bed. Pt agreed to therapy. No c/o pain at this time. Pt's feet appears to have decreased in swelling. Mental Status/Objective Patient Orientation: Person, Place, Time, Situation Functional [place] Measure 0=Not Assessed/NA 4=Minimal Assistance 1=Total Assistance 5=Supervision or Setup 2=Maximal Assistance 6=Modified [place] 3=Moderate Assistance 7=Complete [place] Attachments: Oxygen (1L) ADL-Treatment Functional [place] Measure 0=Not Assessed/NA 4=Minimal Assistance 1=Total Assistance 5=Supervision or Setup 2=Maximal Assistance 6=Modified [place] 3=Moderate Assistance 7=Complete IndependenceIRFPAI Quality Coding Scale 6 Independent with activity with or without an assistive device 5 Patient requires set up or clean up by helper. Patient completes activity by themselves 4 Supervision or touching assist (CGA). [place] provide cues , steadying assist 3 The helper provides less than half the effort to complete the activity 2 The helper provides more than half the effort to complete the activity 1 Dependent. The helper does all the effort to complete an activity 7 Patient refused to complete or attempt activity 9 The patient did not perform the activity before the current illness or injury 88 Not attempted due to Medical conditions or safety concerns Grooming (FIM): 5 (After set up, pt was able to shave self. Pt declined cleansing mouth, does not have dentures with him at the hospital.) Bathing (FIM): 5 (SBA when standing in shower to cleanse buttocks and susan area. Using shower bench, hand held shower and grabbars pt was able to cleanse self.) Bathing Location: L Arm, R Arm, L Upper Leg, R Upper Leg, L Lower Leg ( including foot), R Lower Leg (including foot), Chest, Abdomen, Buttocks, Perineal Area Upper Body (FIM): 5 (After set up, pt is able to complete by self. Pt was able to complete without breaks. Previous treatments pt unable to complete without recovery breaks.) Lower Body Dressing (FIM): 5 (After set up, pt able to don pants with SBA. Previous treatments pt required min A.) Toileting (FIM): 4 (Pt is able to manipulate clothing and cleanse susan area with SBA. Pt inefficient with cleansing buttocks so does continue to need assistance with this.) Transfers (B, C, W/C) (FIM): 5 (SBA using FWW) Toilet/Commode Transfer (FIM): 5 (SBA using FWW and grabbars) Shower Transfer(FIM): 5 (SBA using FWW, shower bench and grabbars) Pt was able to complete ADL tasks with less frequent recovery breaks. Pt did fatigue by the end of the shower. Pt then sat in recliner to complete donning socks with sock aide and shave self after set up. After therapy, pt sitting in recliner with call light/phone in reach. All needs met in room. 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 Yellow theraband (light resistance) given to pt to increase endurance and light exercising for strengthening. Pt was able to complete 3 sets 5 reps of theraband with lengthy recovery break between sets. OT Short Term Goals Short Term Goals Time Frame: Sep 30, 2016 Grooming(FIM): 5 Toileting(FIM): 4 Transfers (B,C,W/C) (FIM): 4 Toilet/Commode Transfer(FIM): 5 Additional Short Term Goals: 2-Verbalize Understanding, 3-ImproveStrength/Raheem 1=Demonstrate adherence to instructed precautions during ADL tasks. 2=Patient will verbalize/demonstrate understanding of assistive devices/ modifications for ADL. 3=Patient will improve strength/tolerance for activity to enable patient to perform ADL's. OT Snf Goals Snf Goals Time Frame: Oct 14, 2016 Eating (FIM): 6 Eating (QC): 6 Groomin Oral Hygiene (QC): 6 Bathing(FIM): 6 Shower/Bathe Self (QC): 6 Upper Body Dressing(FIM): 6 Upper Body Dressing (QC): 6 Lower Body Dressing(FIM): 6 Lower Body Dressing (QC): 6 On/Off Footwear (QC): 6 Toileting(FIM): 6 Toileting Hygiene (QC): 6 Transfers (B,C,W/C) (FIM): 6 Toilet/Commode Transfer(FIM): 6 Toilet/Commode Transfer (QC): 6 Shower Transfer(FIM): 6 Additional Goals: 2-Verbalize Understanding, 3-ImproveStrength/Raheem 1=Demonstrate adherence to instructed precautions during ADL tasks. 2=Patient will verbalize/demonstrate understanding of assistive devices/ modifications for ADL. 3=Patient will improve strength/tolerance for activity to enable patient to perform ADL's. OT Education/Plan Problem List/Assessment Pt would benefit from skilled OT to increase his independence in basic ADLs to allow him to safely return to his home at [place] and decrease caregiver burden Discharge Recommendations Plan/Recommendations: Continue POC Treatment Plan/Plan of Care Patient would benefit from OT for education, treatment and training to promote independence in ADL's, mobility, safety and/or upper extremity function for ADL' s. Plan of Care: ADL Retraining, Functional Mobility, Group Exercise/Act as Ind ( education, exercise, activity tolerance, functional activities, socialization), UE Funct Exercise/Act, UE Neuromus Re-Ed/Coord Treatment Duration: Oct 14, 2016 Frequency: Twice Daily (M-F, PRN weekends) Estimated Hrs Per Day: 1.5 hours per day (M-F, PRN weekends) Agreement: Yes Rehab Potential: Fair Time/GCodes Start Time: 07:00 Stop Time: 08:30 Total Time Billed (hr/min): 90 Billed Treatment Time 1 visit-ADL 4 (60 min) EX 1 (15 min) FA 1 (15 min) CHUCHO HENRY Sep 26, 2016 08:19
--- NOTE | 2016-09-26 10:02 | Physical Therapy Daily Note ---
PT Daily Note-Current Subjective Pt. agrees to Rx. States he hopes to be off O2 when he returns to [place] but states he has been told there is some suspicion that he may have lung CA and will return for testing after DC from here. States he smoked briefly in his life but lived with a who smoked inside the house heavily Pain Numeric Pain Scale: 0-No Pain Mental Status Patient Orientation: Person, Place, Time Attachments: Oxygen (.5-1.0 L) Transfers Functional [place] Measure 0=Not Assessed/NA 4=Minimal Assistance 1=Total Assistance 5=Supervision or Setup 2=Maximal Assistance 6=Modified [place] 3=Moderate Assistance 7=Complete IndependenceIRFPAI Quality Coding Scale 6 Independent with activity with or without an assistive device 5 Patient requires set up or clean up by helper. Patient completes activity by themselves 4 Supervision or touching assist (CGA). [place] provide cues , steadying assist 3 The helper provides less than half the effort to complete the activity 2 The helper provides more than half the effort to complete the activity 1 Dependent. The helper does all the effort to complete an activity 7 Patient refused to complete or attempt activity 9 The patient did not perform the activity before the current illness or injury 88 Not attempted due to Medical conditions or safety concerns Transfers (B, C, W/C) (FIM): 6 Scootin Rollin Supine to/from Sit: 6 Sit to/from Stand: 6 Gait Training Does the Patient Walk?: Yes Gait (FIM): 2 Distance (FIM): 3=405-79 ft (125x2) Gait Level of Assist: 4 Gait Persons Needed: 1 Gait Assistive Device: FWW assist for O2 and to hold pants up. Pt. with SOB needs to rest before reaching intended destination Exercises Supine Ex: Bridging, Ankle pumps, Quad Set, Rolling, Glut sets, Heel Slides, Short Arc Quads, Scooting, Straight leg raise, Hip abd/add Supine Reps: 12 Seated Therapy Exercises: Ankle pumps, Sit to stand, Long arc quads, Hip flexion Seated Reps: 10 Treatments some c/o SOB while in supine for ther ex but O2 sats steady >90% throughout Rx Assessment Current Status: Good Progress no LOB, some SOB but sats steady PT Short Term Goals Short Term Goals Time Frame: Oct 01, 2016 Transfers (B,C,W/C) (FIM): 4 Gait (FIM): 2 Distance (FIM): 7=351-80 ft Gait Distance Comment: 50 Gait Level of Assist: 5 Gait Assistive Device: FWW Wheelchair Distance: 25' PT Spray Booth Operator Goals Spray Booth Operator Goals PT Spray Booth Operator Goals Time Frame: Oct 15, 2016 Transfers (B,C,W/C) (FIM): 6 Sit to Lying (QC): 6 Lying-Sitting on Side/Bed(QC): 6 Sit to Stand (QC): 6 Rollin Roll Left to Right (QC): 6 Chair/[id number]-Zfhxz Xfer(QC): 6 Car Transfer (QC): 6 Does the Patient Walk: Yes Gait (FIM): 5 Gait distance (FIM): 4=403-29 ft Distance: 100 Walk 10 feet (QC): 6 Walk 10ft-Uneven Surface(QC): 6 Walk 50ft with 2 Turns (QC): 6 Walk 150 ft (QC): 9 Gait Level of Assist: 6 Gait Assistive Device: FWW Does the Pt use WC or Scooter?: No Stairs (FIM): 1 # of Steps: 1 1 Step (curb) (QC): 4 4 Steps (QC): 9 12 Steps (QC): 9 Stairs Level Of Assist: 4 Picking up an Object (QC): 6 PT Plan Treatment/Plan Treatment Plan: Continue Plan of Care Treatment Plan: Bed Mobility, Education, Functional Activity Raheem, Functional Strength, Group Therapy, Gait, Safety, Therapeutic Exercise, Transfers Treatment Duration: Oct 15, 2016 Frequency: At least 5-7 days/Wk (IRF) Estimated Hrs Per Day: 1.5 hours per day Patient and/or Family Agrees t: Yes Safety Risks/Education Patient Education: Gait Training, Transfer Techniques, Correct Positioning, Safety Issues Teaching Recipient: Patient, Family Teaching Methods: Demonstration, Discussion Response to Teaching: Verbalize Understanding, Return Demonstration, Reinforcement Needed Time/GCodes Time In: 900 Time Out: 1000 Total Billed Treatment Time: 60 Total Billed Treatment 1,FA25m,EX15m,GT20m G Codes Necessary: MEE Silva CONSTRUCTION CREW MEMBER Sep 26, 2016 10:02
--- NOTE | 2016-09-26 14:13 | Physical Therapy Daily Note ---
PT Daily Note-Current Subjective Pt. agrees to Rx. States he would sure like to get rid of the O2 and only use it at night at home Pain Numeric Pain Scale: 0-No Pain Mental Status Patient Orientation: Normal For Age Attachments: Oxygen (1L) Transfers Functional [place] Measure 0=Not Assessed/NA 4=Minimal Assistance 1=Total Assistance 5=Supervision or Setup 2=Maximal Assistance 6=Modified [place] 3=Moderate Assistance 7=Complete IndependenceIRFPAI Quality Coding Scale 6 Independent with activity with or without an assistive device 5 Patient requires set up or clean up by helper. Patient completes activity by themselves 4 Supervision or touching assist (CGA). [place] provide cues , steadying assist 3 The helper provides less than half the effort to complete the activity 2 The helper provides more than half the effort to complete the activity 1 Dependent. The helper does all the effort to complete an activity 7 Patient refused to complete or attempt activity 9 The patient did not perform the activity before the current illness or injury 88 Not attempted due to Medical conditions or safety concerns Transfers (B, C, W/C) (FIM): 5 Scootin Rollin Supine to/from Sit: 6 Sit to/from Stand: 5 Bed to/from Chair: 5 Gait Training Does the Patient Walk?: Yes Gait (FIM): 5 Distance (FIM): 3=150 ft Gait Level of Assist: 5 Gait Persons Needed: 1 Gait Assistive Device: FWW assist for O2 only, 3 standing rest breaks, o2 started at 1L but with O2 sats to 87% increased to 2L Exercises Seated Therapy Exercises: Ankle pumps, Sit to stand, Long arc quads, Hip flexion Seated Reps: 10 Assessment Current Status: Good Progress needs standing rest breaks during gait PT Short Term Goals Short Term Goals Time Frame: Oct 01, 2016 Transfers (B,C,W/C) (FIM): 4 Gait (FIM): 2 Distance (FIM): 5=609-08 ft Gait Distance Comment: 50 Gait Level of Assist: 5 Gait Assistive Device: FWW Wheelchair Distance: 25' PT Hydraulic Governor Assembler Goals Hydraulic Governor Assembler Goals PT Nursing Home Goals Time Frame: Oct 15, 2016 Transfers (B,C,W/C) (FIM): 6 Sit to Lying (QC): 6 Lying-Sitting on Side/Bed(QC): 6 Sit to Stand (QC): 6 Rollin Roll Left to Right (QC): 6 Chair/Xpl-xf-Baprz Xfer(QC): 6 Car Transfer (QC): 6 Does the Patient Walk: Yes Gait (FIM): 5 Gait distance (FIM): 7=338-58 ft Distance: 100 Walk 10 feet (QC): 6 Walk 10ft-Uneven Surface(QC): 6 Walk 50ft with 2 Turns (QC): 6 Walk 150 ft (QC): 9 Gait Level of Assist: 6 Gait Assistive Device: FWW Does the Pt use WC or Scooter?: No Stairs (FIM): 1 # of Steps: 1 1 Step (curb) (QC): 4 4 Steps (QC): 9 12 Steps (QC): 9 Stairs Level Of Assist: 4 Picking up an Object (QC): 6 PT Plan Treatment/Plan Treatment Plan: Continue Plan of Care Treatment Plan: Bed Mobility, Education, Functional Activity Raheem, Functional Strength, Group Therapy, Gait, Safety, Therapeutic Exercise, Transfers Treatment Duration: Oct 15, 2016 Frequency: At least 5-7 days/Wk (IRF) Estimated Hrs Per Day: 1.5 hours per day Patient and/or Family Agrees t: Yes Safety Risks/Education Patient Education: Gait Training, Transfer Techniques Teaching Recipient: Patient Teaching Methods: Demonstration, Discussion Response to Teaching: Verbalize Understanding, Return Demonstration, Reinforcement Needed Time/GCodes Time In: 1340 Time Out: 1410 Total Billed Treatment Time: 30 Total Billed Treatment 1,GT20,FA10 G Codes Necessary: No MEE MALDONADO STONE CARRIAGE OPERATOR Sep 26, 2016 14:13
[2016-09-26] MEDS: ALFUZOSIN HCL 10 MG TAB (UROXATRAL) PO SCH (17:30)
[2016-09-26 18:04] VITALS: BP 109/73
--- NOTE | 2016-09-26 19:17 | PM & R (SOAP) Progress Note ---
Subjective Time Seen by Provider: 11:30 Subjective/Events-last exam Patient was seen in his room earlier today Progressing well with therapies Patient Modified Independent for transfers Objective Exam Last Set of Vital Signs Vital Signs Date Time Temp Pulse Resp B/P (MAP) Pulse Ox O2 Delivery O2 Flow Rate FiO2 09/26/16 19:04 99 Nasal Cannula 1.00 09/26/16 18:04 98.9 72 19 109/73 Capillary Refill : I&O Intake and Output 09/26/16 00:00 Intake Total 1630 ml Output Total 3725 ml Balance -2095 ml Intake Oral 1630 ml Output Urine Total 3725 ml General: Alert, No Acute Distress HEENT: Atraumatic, PERRLA Neck: Supple, No JVD Lungs: Normal Air Movement Heart: Other (irregular rate) Abdomen: Normal Bowel Sounds, Soft, No Tenderness Extremities: Other (trace edema) Skin: Other (Left medial thigh, upper -- 4.2 x 2.1 x 0.6 cm, 50% granulation, 50% slough; L medial thigh, lower. -- 2.7 x 0.6 x 0.2 cm, 100% slough.) Neuro: Other (Generalized weakness) Results Lab Laboratory Tests 09/23/16 20:15: Glucometer 255H 09/24/16 06:31: Glucometer 100 09/24/16 11:04: Glucometer 156H 09/24/16 16:10: Glucometer 179H 09/24/16 20:13: Glucometer 226H 09/25/16 05:27: Glucometer 119H 09/25/16 11:11: Glucometer 152H 09/25/16 16:08: Glucometer 146H 09/25/16 20:18: Glucometer 223H 09/25/16 21:17: Glucometer 199H 09/26/16 04:25: Glucometer 102 09/26/16 11:20: Glucometer 156H 09/26/16 16:07: Glucometer 154H Assessment/Plan Assessment S/P AVR and CaBG OSH Resp insufficiency o2 dependent Hyperglyemia-steroid induced Elevated LFTS Postop AFIB controlled with meds Plan Continue PT/OT F/U with DR Holbrook and Jun as per [facility] Wound care addressed -See orders Check Labs as per above-done CheckedCXR Recheck Labs See orders Next Team Conference 09/28/16 NEGRITO THOMPSON MD Sep 26, 2016 19:17
[2016-09-26] MEDS: traZODone 50 MG (DESYREL) TAB PO SCH (21:03)
[2016-09-26] MEDS: ATORVASTATIN 80 MG (LIPITOR) TABLET PO SCH (21:03)
[2016-09-26] MEDS: inSUlin DETERMIR 1 UNIT/0.01 ML (LEVEMIR) CHARGE PER UNIT SQ SCH (21:03)
[2016-09-27] MEDS: ACETAMINOPHEN 325 MG TABLET/CAPLET (TYLENOL) PO PRN ×2 (02:18→11:16)
[2016-09-27 05:51] LABS: BASOPHILS % (AUTO) 0 % (0-10); EOSINOPHILS % (AUTO) 0 % (0-10); LYMPHOCYTES % (AUTO) 20 % (12-44); MEAN CORPUSCULAR HEMOGLOBIN 30 PG (25-34); MEAN CORPUSCULAR HGB CONC 31 G/DL (32-36); MEAN CORPUSCULAR VOLUME 97 FL (80-99); MEAN PLATELET VOLUME 9.5 FL (7.4-10.4); MONOCYTES % (AUTO) 10 % (0-12); NEUTROPHILS # (AUTO) 6.7 X 10^3 (1.8-7.8); NEUTROPHILS % (AUTO) 69 % (42-75); PLATELET COUNT 140 10^3/uL (130-400); RED BLOOD COUNT 2.99 10^6/uL (4.35-5.85); RED CELL DISTRIBUTION WIDTH 17.7 % (10.0-14.5); WHITE BLOOD COUNT 9.7 10^3/uL (4.3-11.0)
[2016-09-27] MEDS: KCL 20 MEQ TAB (K-DUR) PO SCH (05:54)
[2016-09-27] MEDS: predniSONE 20 MG TAB PO SCH (05:54)
[2016-09-27] MEDS: BUMETANIDE 1 MG (BUMEX) TAB PO SCH ×2 (05:55→18:11)
[2016-09-27] MEDS: inSUlin (REGULAR) HUMAN 1 UNIT/0.01 ML (CHARGE PER UNIT) SC SCH ×4 (05:55→20:54)
[2016-09-27] MEDS: PANTOPRAZOLE 40 MG (PROTONIX) TAB PO SCH ×2 (05:55→16:05)
[2016-09-27 06:00] VITALS: BP 99/60
[2016-09-27 06:14] LABS: ALANINE AMINOTRANSFERASE 45 U/L (0-55); ANION GAP 14 MMOL/L (5-14); ASPARTATE AMINO TRANSFERASE 27 U/L (5-34); BILIRUBIN,TOTAL 1.4 MG/DL (0.1-1.0); BLOOD UREA NITROGEN 29 MG/DL (7-18); BUN/CREATININE RATIO 28; CALCIUM 9.2 MG/DL (8.5-10.1); CARBON DIOXIDE 29 MMOL/L (21-32); CHLORIDE 94 MMOL/L (98-107); CREATININE SERUM 1.03 MG/DL (0.60-1.30); GFR ESTIMATED > 60; GLUCOSE 99 MG/DL (70-105); POTASSIUM 3.5 MMOL/L (3.6-5.0); SODIUM 137 MMOL/L (135-145); TOTAL PROTEIN 6.1 GM/DL (6.4-8.2)
[2016-09-27] MEDS: RT-ALBUTEROL SULF 2.5 MG/3 ML PRE-MIX VIAL IH SCH ×4 (06:50→19:37)
[2016-09-27] MEDS: RT-ADVAIR HFA 115/21 MCG PER PUFF IH SCH ×2 (06:59→19:38)
--- NOTE | 2016-09-27 07:52 | Occupational Ther Daily Note ---
OT Current Status-Daily Note Subjective Pt alert, lying in bed. Pt agreed to therapy. No c/o pain at this time. Mental Status/Objective Patient Orientation: Person, Place, Time, Situation Functional [place] Measure 0=Not Assessed/NA 4=Minimal Assistance 1=Total Assistance 5=Supervision or Setup 2=Maximal Assistance 6=Modified [place] 3=Moderate Assistance 7=Complete [place] Attachments: IV, Oxygen (1L) ADL-Treatment Functional [place] Measure 0=Not Assessed/NA 4=Minimal Assistance 1=Total Assistance 5=Supervision or Setup 2=Maximal Assistance 6=Modified [place] 3=Moderate Assistance 7=Complete IndependenceIRFPAI Quality Coding Scale 6 Independent with activity with or without an assistive device 5 Patient requires set up or clean up by helper. Patient completes activity by themselves 4 Supervision or touching assist (CGA). [place] provide cues , steadying assist 3 The helper provides less than half the effort to complete the activity 2 The helper provides more than half the effort to complete the activity 1 Dependent. The helper does all the effort to complete an activity 7 Patient refused to complete or attempt activity 9 The patient did not perform the activity before the current illness or injury 88 Not attempted due to Medical conditions or safety concerns Eating (FIM): 6 (Pt able to set self up and use regular utensils to cut food and feed self.) Bathing (FIM): 5 (Supervision using shower seat, grabbars and hand held shower. Pt able to bathe self.) Bathing Location: L Arm, R Arm, L Upper Leg, R Upper Leg, L Lower Leg ( including foot), R Lower Leg (including foot), Chest, Abdomen, Buttocks, Perineal Area Upper Body (FIM): 5 (After set up, pt is able to complete donning/doffing upper body clothing by self.) Lower Body Dressing (FIM): 5 (After set up, pt is able to don/doff lower body clothing. Uses sock aid to don socks.) Toileting (FIM): 4 (CGA for hygiene, able to complete clothing manipulation by self using FWW and grabbars.) Transfers (B, C, W/C) (FIM): 5 (SBA using FWW.) Toilet/Commode Transfer (FIM): 5 (Using grabbars and FWW, pt is able to complete with supervision.) Shower Transfer(FIM): 5 (Using grabbar, shower bench and FWW pt is able to complete transfer with supervision.) OT Short Term Goals Short Term Goals Time Frame: Sep 30, 2016 Grooming(FIM): 5 Toileting(FIM): 4 Transfers (B,C,W/C) (FIM): 4 Toilet/Commode Transfer(FIM): 5 Additional Short Term Goals: 2-Verbalize Understanding, 3-ImproveStrength/Raheem 1=Demonstrate adherence to instructed precautions during ADL tasks. 2=Patient will verbalize/demonstrate understanding of assistive devices/ modifications for ADL. 3=Patient will improve strength/tolerance for activity to enable patient to perform ADL's. OT Detention Goals Detention Goals Time Frame: Oct 14, 2016 Eating (FIM): 6 Eating (QC): 6 Groomin Oral Hygiene (QC): 6 Bathing(FIM): 6 Shower/Bathe Self (QC): 6 Upper Body Dressing(FIM): 6 Upper Body Dressing (QC): 6 Lower Body Dressing(FIM): 6 Lower Body Dressing (QC): 6 On/Off Footwear (QC): 6 Toileting(FIM): 6 Toileting Hygiene (QC): 6 Transfers (B,C,W/C) (FIM): 6 Toilet/Commode Transfer(FIM): 6 Toilet/Commode Transfer (QC): 6 Shower Transfer(FIM): 6 Additional Goals: 2-Verbalize Understanding, 3-ImproveStrength/Raheem 1=Demonstrate adherence to instructed precautions during ADL tasks. 2=Patient will verbalize/demonstrate understanding of assistive devices/ modifications for ADL. 3=Patient will improve strength/tolerance for activity to enable patient to perform ADL's. OT Education/Plan Problem List/Assessment Pt would benefit from skilled OT to increase his independence in basic ADLs to allow him to safely return to his home at [place] and decrease caregiver burden Discharge Recommendations Plan/Recommendations: Continue POC Treatment Plan/Plan of Care Patient would benefit from OT for education, treatment and training to promote independence in ADL's, mobility, safety and/or upper extremity function for ADL' s. Plan of Care: ADL Retraining, Functional Mobility, Group Exercise/Act as Ind ( education, exercise, activity tolerance, functional activities, socialization), UE Funct Exercise/Act, UE Neuromus Re-Ed/Coord Treatment Duration: Oct 14, 2016 Frequency: Twice Daily (M-F, PRN weekends) Estimated Hrs Per Day: 1.5 hours per day (M-F, PRN weekends) Agreement: Yes Rehab Potential: Fair Time/GCodes Start Time: 07:00 Stop Time: 08:00 Total Time Billed (hr/min): 60 Billed Treatment Time 1 visit-ADL 4 (60 min) CHUCHO HENRY Sep 27, 2016 07:52
--- NOTE | 2016-09-27 08:20 | PM & R (SOAP) Progress Note ---
Subjective Time Seen by Provider: 07:50 Subjective/Events-last exam Patient was seen in his room this AM Discussed case with RN Patient indicates that he has been on 02 at home continuous since treatment of Pneumonia this past March,Patient set for dressing and Sba for transfers Endurance improving Objective Exam Last Set of Vital Signs Vital Signs Date Time Temp Pulse Resp B/P (MAP) Pulse Ox O2 Delivery O2 Flow Rate FiO2 09/27/16 06:59 97 Nasal Cannula 2.00 09/27/16 06:00 98.3 72 18 99/60 Capillary Refill : I&O Intake and Output 09/27/16 00:00 Intake Total 1950 ml Output Total 2780 ml Balance -830 ml Intake Oral 1950 ml Output Urine Total 2780 ml # Bowel Movements 1 General: Alert, No Acute Distress HEENT: Atraumatic, PERRLA Neck: Supple, No JVD Lungs: Normal Air Movement Heart: Other (irregular rate) Abdomen: Normal Bowel Sounds, Soft, No Tenderness Extremities: Other (trace edema) Skin: Other (Left medial thigh, upper -- 4.2 x 2.1 x 0.6 cm, 50% granulation, 50% slough; L medial thigh, lower. -- 2.7 x 0.6 x 0.2 cm, 100% slough.much improved today) Neuro: Other (Generalized weakness) Results Lab Laboratory Tests 09/24/16 11:04: Glucometer 156H 09/24/16 16:10: Glucometer 179H 09/24/16 20:13: Glucometer 226H 09/25/16 05:27: Glucometer 119H 09/25/16 11:11: Glucometer 152H 09/25/16 16:08: Glucometer 146H 09/25/16 20:18: Glucometer 223H 09/25/16 21:17: Glucometer 199H 09/26/16 04:25: Glucometer 102 09/26/16 11:20: Glucometer 156H 09/26/16 16:07: Glucometer 154H 09/26/16 19:54: Glucometer 187H 09/27/16 05:11: Glucometer 96 09/27/16 05:15: White Blood Count 9.7, Red Blood Count 2.99L, Hemoglobin 9.0L, Hematocrit 29L, Mean Corpuscular Volume 97, Mean Corpuscular Hemoglobin 30, Mean Corpuscular Hemoglobin Concent 31L, Red Cell Distribution Width 17.7H, Platelet Count 140, Mean Platelet Volume 9.5, Neutrophils (%) (Auto) 69, Lymphocytes (%) (Auto) 20, Monocytes (%) (Auto) 10, Eosinophils (%) (Auto) 0, Basophils (%) (Auto) 0, Neutrophils # (Auto) 6.7, Lymphocytes # (Auto) 2.0, Monocytes # (Auto) 1.0, Eosinophils # (Auto) 0.0, Basophils # (Auto) 0.0, Sodium Level 137, Potassium Level 3.5L, Chloride Level 94L, Carbon Dioxide Level 29, Anion Gap 14, Blood Urea Nitrogen 29H, Creatinine 1.03, Estimat Glomerular Filtration Rate > 60, BUN /Creatinine Ratio 28, Glucose Level 99, Calcium Level 9.2, Total Bilirubin 1.4H , Aspartate Amino Transf (AST/SGOT) 27, Alanine Aminotransferase (ALT/SGPT) 45, Alkaline Phosphatase 106, Total Protein 6.1L, Albumin 4.0 Assessment/Plan Assessment S/P AVR and CaBG OSH Resp insufficiency o2 dependent Hyperglyemia-steroid induced Elevated LFTS Postop AFIB controlled with meds wound left thigh much improved Plan Continue PT/OT F/U with DR Holbrook and Jun as per [facility] Wound care addressed -See orders-improved Check Labs as per above-done CheckedCXR Rechecked Labs-noted Next Team Conference tomorrow 09/28/16 NEGRITO THOMPSON MD Sep 27, 2016 08:20
[2016-09-27] MEDS ORDERED: KCL 20 MEQ TAB (K-DUR) PO NR (08:30)
[2016-09-27] MEDS: DOCUSATE SODIUM 100 MG (COLACE) CAP PO SCH ×2 (09:43→21:17)
[2016-09-27] MEDS: LORATADINE (CLARITIN) 10 MG TAB PO SCH (09:44)
[2016-09-27] MEDS: FINASTERIDE (PROSCAR) 5 MG TAB PO SCH (09:44)
[2016-09-27] MEDS: ASPIRIN E.C. 81 MG (ECOTRIN) TAB PO SCH (09:44)
[2016-09-27] MEDS: guaiFENesin (MUCINEX) 600 MG TAB PO SCH ×2 (09:46→21:17)
[2016-09-27] MEDS: SPIRONOLACTONE 25 MG (ALDACTONE) TAB PO SCH (09:46)
[2016-09-27] MEDS: DIGOXIN 0.25 MG (LANOXIN) TAB PO SCH (09:50)
[2016-09-27] MEDS: meTOproloL SUCCINATE 50 MG (TOPROL XL) TAB PO SCH (09:50)
[2016-09-27] MEDS: DAKIN'S 1/4 STRENGTH (0.125%) 473 ML BTL TOP SCH ×2 (09:52→21:18)
[2016-09-27] MEDS: FLUTICASONE NASAL SPRAY (FLONASE) 16 GM BTL NS SCH (09:53)
[2016-09-27] MEDS: MENTHOL/ZINC OXIDE (CALMOSEPTINE) 113 GM TUBE TOP SCH ×2 (09:54→21:20)
--- NOTE | 2016-09-27 10:20 | Progress Note-Hospitalist ---
Subjective HPI/CC On Admission Date Seen by Provider: Sep 27, 2016 Time Seen by Provider: 08:15 CC: Medical management following CABG w/aortic valve replacement HPI: This is a 74yoWM clinic patient of Dr Multani in [facility] that presents with s/ p uncomplicated CABG and aortic valve replacement by Dr Zafar on 08/10/16 and has since returned to IRU for recovery. RN called me with AF w/RVR and Dr Barahona graciously managed that last evening. Currently his bowels are moving and overall feeling better each and every day. Denies any pain and is using the IS and EZ-pap. Subjective/Events-last exam Mr. Nesbitt is seen for follow-up of multiple medical issues including coronary artery disease status post bypass, deconditioning, previous anasarca and type II diabetes mellitus. Staff reports he is making progress but this morning he reports it's 1 was low energy days. It should be noted that his supine blood pressure was 99/70 this morning and he still 1 4 times a day to milligram bumetanide. He reports his appetite is been good and he denies chest pain shortness of breath or abdominal pain. Sometimes he feels little bit lightheaded when he gets up especially the last several days. He's had no orthopnea or PND. Objective Exam Vital Signs Vital Sign - Last 12Hours 09/21/16 09/21/16 01:00 05:23 Temp 98.6 Pulse 68 Resp 20 B/P (MAP) 109/70 Pulse Ox 99 O2 Delivery Nasal Cannula O2 Flow Rate 2.00 2.00 Capillary Refill : General Appearance: No Apparent Distress, Chronically ill, Obese Respiratory: No Accessory Muscle Use, No Respiratory Distress, Other (U coarse basilar rales noted without wheezing or rhonchi.) Cardiovascular: Regular Rate, Rhythm, No Edema, No Gallop, No JVD, Normal Peripheral Pulses, Other (Soft systolic murmur noted left lower sternal border no diastolic murmurs appreciated. No S3 or S4 appreciated.) Gastrointestinal: Normal Bowel Sounds, No Organomegaly, No Pulsatile Mass, Non Tender, Soft Extremity: Other (Bandaged surgical wound left thigh presumably from vein graft harvest site trace bilateral edema involving feet only.) Skin: Pallor Results/Procedures Lab Laboratory Tests 09/27/16 05:15 Assessment/Plan Assessment and Plan Assess & Plan/Chief Complaint 1. Coronary artery disease status post CABG slow but steady recovery due to multiple medical comorbidities and deconditioning. Continue PT and OT. 2. Borderline hypotension likely due to dehydration from high-dose diuretic therapy. Patient has lost reportedly 40 pounds of fluid over the past month we will decrease to twice a day. 3 Type II diabetes mellitus under reasonable control. 4. Postsurgical wound and left vein graft harvest site continue treatment per wound care protocol. No reported evidence for secondary infection. 5. Relatively high-dose prednisone usage. The patient is unsure why he's on 20 mg of prednisone was not taking this prior to surgery. We'll decrease to 15 mg with continued tapering. If doing well on 15 mg by the end of the week and we'll see about cutting back to 12.5 mg. 6. Anemia likely chronic disease in addition to postsurgical blood loss improving up 1 g to 9 from 10 days ago. BARBIE GAR MD Sep 27, 2016 10:20
--- NOTE | 2016-09-27 10:42 | Physical Therapy Daily Note ---
PT Daily Note-Current Subjective Pt sitting in recliner and receiving wound dressing change upon arrival. Pt agrees to PT but needs to use urinal first. Pain Location: No Pain Reported Mental Status Patient Orientation: Person, Place, Time, Situation Attachments: Oxygen (1L) Transfers Functional [place] Measure 0=Not Assessed/NA 4=Minimal Assistance 1=Total Assistance 5=Supervision or Setup 2=Maximal Assistance 6=Modified [place] 3=Moderate Assistance 7=Complete IndependenceIRFPAI Quality Coding Scale 6 Independent with activity with or without an assistive device 5 Patient requires set up or clean up by helper. Patient completes activity by themselves 4 Supervision or touching assist (CGA). [place] provide cues , steadying assist 3 The helper provides less than half the effort to complete the activity 2 The helper provides more than half the effort to complete the activity 1 Dependent. The helper does all the effort to complete an activity 7 Patient refused to complete or attempt activity 9 The patient did not perform the activity before the current illness or injury 88 Not attempted due to Medical conditions or safety concerns Scootin Sit to/from Stand: 5 Sit to Stand (QC): 5 Weight Bearing Weight Bearing Restriction: Full Weight Bearing Location Restriction: LE Bilateral Gait Training Does the Patient Walk?: Yes Distance (FIM): 3=150 ft Distance: 150' Walk 10 feet (QC): 4 Walk 50 ft with 2 Turns(QC): 4 Walk 150 ft (QC): 4 Gait Level of Assist: 4 Gait Persons Needed: 1 Gait Assistive Device: FWW Pt was more SOB today than previous visits and needs assistance from PERINATAL DIRECTOR to hold pants up. Exercises Standing: Hip Abduction, Heel/toe raises NuStep Minutes: 16 NuStep Workload: 3 Treatments After nurse finishes dressing wound, pt uses urinal as PERINATAL DIRECTOR stands at SBA to assist if needed. Pt then ambulates in hallway using FWW at CGA-Min A. Pt fatigues easy and needs rest break. Pt uses NuStep for 16m at Workload 3 to increase strength and activity tolerance. Pt rests before transferring to standing at //bars for Standing Ex. Pt then walks back to room to rest in recliner with feet up at end of tx with all needs met. Assessment Current Status: Fair Progress Pt reports more SOB today and fatigues easy needing rest breaks. PT Short Term Goals Short Term Goals Time Frame: Oct 01, 2016 Transfers (B,C,W/C) (FIM): 4 Gait (FIM): 2 Distance (FIM): 4=330-74 ft Gait Distance Comment: 50 Gait Level of Assist: 5 Gait Assistive Device: FWW Wheelchair Distance: 25' PT Half-Way Goals Half-Way Goals PT Half-Way Goals Time Frame: Oct 15, 2016 Transfers (B,C,W/C) (FIM): 6 Sit to Lying (QC): 6 Lying-Sitting on Side/Bed(QC): 6 Sit to Stand (QC): 6 Rollin Roll Left to Right (QC): 6 Chair/Yht-eo-Ivkri Xfer(QC): 6 Car Transfer (QC): 6 Does the Patient Walk: Yes Gait (FIM): 5 Gait distance (FIM): 8=866-89 ft Distance: 100 Walk 10 feet (QC): 6 Walk 10ft-Uneven Surface(QC): 6 Walk 50ft with 2 Turns (QC): 6 Walk 150 ft (QC): 9 Gait Level of Assist: 6 Gait Assistive Device: FWW Does the Pt use WC or Scooter?: No Stairs (FIM): 1 # of Steps: 1 1 Step (curb) (QC): 4 4 Steps (QC): 9 12 Steps (QC): 9 Stairs Level Of Assist: 4 Picking up an Object (QC): 6 PT Plan Problem List Problem List: Activity Tolerance, Functional Strength, Safety, Balance, Gait Treatment/Plan Treatment Plan: Continue Plan of Care Treatment Plan: Bed Mobility, Education, Functional Activity Raheem, Functional Strength, Group Therapy, Gait, Safety, Therapeutic Exercise, Transfers Treatment Duration: Oct 15, 2016 Frequency: At least 5-7 days/Wk (IRF) Estimated Hrs Per Day: 1.5 hours per day Patient and/or Family Agrees t: Yes Safety Risks/Education Patient Education: Gait Training, Transfer Techniques, Correct Positioning, Safety Issues Teaching Recipient: Patient Teaching Methods: Discussion Response to Teaching: Verbalize Understanding Time/GCodes Time In: 815 Time Out: 915 Total Billed Treatment Time: 60 Total Billed Treatment visit, GT (15m), EX x2 (30m) & FA (15m) EMMA BELTRE PERINATAL DIRECTOR Sep 27, 2016 10:42
--- NOTE | 2016-09-27 10:54 | Occupational Ther Daily Note ---
OT Current Status-Daily Note Subjective Pt alert, sitting in recliner. Pt agreed to therapy. No c/o pain. Mental Status/Objective Patient Orientation: Person, Place, Time, Situation Functional [place] Measure 0=Not Assessed/NA 4=Minimal Assistance 1=Total Assistance 5=Supervision or Setup 2=Maximal Assistance 6=Modified [place] 3=Moderate Assistance 7=Complete [place] Attachments: IV, Oxygen ADL-Treatment Functional [place] Measure 0=Not Assessed/NA 4=Minimal Assistance 1=Total Assistance 5=Supervision or Setup 2=Maximal Assistance 6=Modified [place] 3=Moderate Assistance 7=Complete IndependenceIRFPAI Quality Coding Scale 6 Independent with activity with or without an assistive device 5 Patient requires set up or clean up by helper. Patient completes activity by themselves 4 Supervision or touching assist (CGA). [place] provide cues , steadying assist 3 The helper provides less than half the effort to complete the activity 2 The helper provides more than half the effort to complete the activity 1 Dependent. The helper does all the effort to complete an activity 7 Patient refused to complete or attempt activity 9 The patient did not perform the activity before the current illness or injury 88 Not attempted due to Medical conditions or safety concerns Other Treatment Pt complete arm bike 15 min duration at 5 white resistance with 2 lengthy recovery breaks. Arm bike used to increase activity tolerance for daily functional tasks. Pt has decreased activity tolerance, is progressing with endurance to complete daily functional tasks. Pt able to reach urinal, manipulate clothing and use urinal effectively, only assistance is to clean up afterwards. After therapy, pt sitting in recliner with call light/phone in reach. All needs met in room. OT Short Term Goals Short Term Goals Time Frame: Sep 30, 2016 Grooming(FIM): 5 Toileting(FIM): 4 Transfers (B,C,W/C) (FIM): 4 Toilet/Commode Transfer(FIM): 5 Additional Short Term Goals: 2-Verbalize Understanding, 3-ImproveStrength/Raheem 1=Demonstrate adherence to instructed precautions during ADL tasks. 2=Patient will verbalize/demonstrate understanding of assistive devices/ modifications for ADL. 3=Patient will improve strength/tolerance for activity to enable patient to perform ADL's. OT Long-Term Goals Long-Term Goals Time Frame: Oct 14, 2016 Eating (FIM): 6 Eating (QC): 6 Groomin Oral Hygiene (QC): 6 Bathing(FIM): 6 Shower/Bathe Self (QC): 6 Upper Body Dressing(FIM): 6 Upper Body Dressing (QC): 6 Lower Body Dressing(FIM): 6 Lower Body Dressing (QC): 6 On/Off Footwear (QC): 6 Toileting(FIM): 6 Toileting Hygiene (QC): 6 Transfers (B,C,W/C) (FIM): 6 Toilet/Commode Transfer(FIM): 6 Toilet/Commode Transfer (QC): 6 Shower Transfer(FIM): 6 Additional Goals: 2-Verbalize Understanding, 3-ImproveStrength/Raheem 1=Demonstrate adherence to instructed precautions during ADL tasks. 2=Patient will verbalize/demonstrate understanding of assistive devices/ modifications for ADL. 3=Patient will improve strength/tolerance for activity to enable patient to perform ADL's. OT Education/Plan Problem List/Assessment Pt would benefit from skilled OT to increase his independence in basic ADLs to allow him to safely return to his home at [place] and decrease caregiver burden Discharge Recommendations Plan/Recommendations: Continue POC Treatment Plan/Plan of Care Patient would benefit from OT for education, treatment and training to promote independence in ADL's, mobility, safety and/or upper extremity function for ADL' s. Plan of Care: ADL Retraining, Functional Mobility, Group Exercise/Act as Ind ( education, exercise, activity tolerance, functional activities, socialization), UE Funct Exercise/Act, UE Neuromus Re-Ed/Coord Treatment Duration: Oct 14, 2016 Frequency: Twice Daily (M-F, PRN weekends) Estimated Hrs Per Day: 1.5 hours per day (M-F, PRN weekends) Agreement: Yes Rehab Potential: Fair Time/GCodes Start Time: 10:15 Stop Time: 10:45 Total Time Billed (hr/min): 30 Billed Treatment Time 1 visit-EX 2 (30 min) CHUCHO HENRY Sep 27, 2016 10:54
[2016-09-27] MEDS: UMECLIDINIUM BROMIDE (INCRUSE ELLIPTA) 7'S IH SCH (10:58)
[2016-09-27] MEDS: MAGNESIUM OXIDE (MAG-OX)400 MG TAB PO NR ×2 (11:06→11:15)
--- NOTE | 2016-09-27 14:47 | Physical Therapy Daily Note ---
PT Daily Note-Current Subjective Pt sitting in recliner upon arrival. Pt agreed to PT although anxious about UE & LE tremors and Low BP. Nursing notified. Pain Location: No Pain Reported Mental Status Patient Orientation: Person, Place, Time, Situation Attachments: Oxygen (1L) Transfers Functional [place] Measure 0=Not Assessed/NA 4=Minimal Assistance 1=Total Assistance 5=Supervision or Setup 2=Maximal Assistance 6=Modified [place] 3=Moderate Assistance 7=Complete IndependenceIRFPAI Quality Coding Scale 6 Independent with activity with or without an assistive device 5 Patient requires set up or clean up by helper. Patient completes activity by themselves 4 Supervision or touching assist (CGA). [place] provide cues , steadying assist 3 The helper provides less than half the effort to complete the activity 2 The helper provides more than half the effort to complete the activity 1 Dependent. The helper does all the effort to complete an activity 7 Patient refused to complete or attempt activity 9 The patient did not perform the activity before the current illness or injury 88 Not attempted due to Medical conditions or safety concerns Scootin Rollin Roll Left to Right (QC): 6 Supine to/from Sit: 5 Sit to/from Stand: 5 Sit to Lying (QC): 5 Sit to Stand (QC): 5 Chair/Tmz-yv-Tkhog Xfer(QC): 5 Bed to/from Chair: 5 Weight Bearing Weight Bearing Restriction: Full Weight Bearing Location Restriction: LE Bilateral Gait Training Does the Patient Walk?: Yes Distance (FIM): 1=up to 49 ft Distance: 7' Gait Level of Assist: 5 Gait Persons Needed: 1 Gait Assistive Device: FWW Pt has slow addy but no LOB, steady with gait. Wheelchair Training Does the Pt Use a Wheelchair?: No Exercises Seated Therapy Exercises: Ankle pumps, Long arc quads, Hip flexion, Kicking activity Seated Reps: 15 Treatments Pt and RESTAURANT MGR discussed pt's anxiety and Low BP readings and what DR Courtney's order to decrease BP med from 4X to 2X per day. Pt completed Seated Ex at recliner before transferring from recliner to standing using FWW at SBA. Pt ambulated to bed before transferring to Supine in bed. Pt was able to roll to L side for positioning to rest. Pt has all needs met at end of tx. Assessment Current Status: Fair Progress Pt expressed anxiety during tx over Low BP and tremors. Pt is wanting to go home and doesn't want this to keep him from going home. PT Short Term Goals Short Term Goals Time Frame: Oct 01, 2016 Transfers (B,C,W/C) (FIM): 4 Gait (FIM): 2 Distance (FIM): 4=660-48 ft Gait Distance Comment: 50 Gait Level of Assist: 5 Gait Assistive Device: FWW Wheelchair Distance: 25' PT Customs Port Director Goals Mcfp Goals PT [employer] Director Goals Time Frame: Oct 15, 2016 Transfers (B,C,W/C) (FIM): 6 Sit to Lying (QC): 6 Lying-Sitting on Side/Bed(QC): 6 Sit to Stand (QC): 6 Rollin Roll Left to Right (QC): 6 Chair/Elt-xd-Nfzdd Xfer(QC): 6 Car Transfer (QC): 6 Does the Patient Walk: Yes Gait (FIM): 5 Gait distance (FIM): 4=715-56 ft Distance: 100 Walk 10 feet (QC): 6 Walk 10ft-Uneven Surface(QC): 6 Walk 50ft with 2 Turns (QC): 6 Walk 150 ft (QC): 9 Gait Level of Assist: 6 Gait Assistive Device: FWW Does the Pt use WC or Scooter?: No Stairs (FIM): 1 # of Steps: 1 1 Step (curb) (QC): 4 4 Steps (QC): 9 12 Steps (QC): 9 Stairs Level Of Assist: 4 Picking up an Object (QC): 6 PT Plan Problem List Problem List: Activity Tolerance, Functional Strength, Safety, Balance, Gait Treatment/Plan Treatment Plan: Continue Plan of Care Treatment Plan: Bed Mobility, Education, Functional Activity Raheem, Functional Strength, Group Therapy, Gait, Safety, Therapeutic Exercise, Transfers Treatment Duration: Oct 15, 2016 Frequency: At least 5-7 days/Wk (IRF) Estimated Hrs Per Day: 1.5 hours per day Patient and/or Family Agrees t: Yes Safety Risks/Education Patient Education: Disease Process, Safety Issues Teaching Recipient: Patient Teaching Methods: Discussion Response to Teaching: Verbalize Understanding Time/GCodes Time In: 1330 Time Out: 1400 Total Billed Treatment Time: 30 Total Billed Treatment visit, FA (20m) & EX (10m) EMMA BELTRE PTA Sep 27, 2016 14:47
[2016-09-27 17:49] VITALS: BP 99/60
[2016-09-27] MEDS: ALFUZOSIN HCL 10 MG TAB (UROXATRAL) PO SCH (18:11)
[2016-09-27] MEDS: MAGNESIUM OXIDE (MAG-OX)400 MG TAB PO SCH (18:11)
[2016-09-27] MEDS: ATORVASTATIN 80 MG (LIPITOR) TABLET PO SCH (21:17)
[2016-09-27] MEDS: traZODone 50 MG (DESYREL) TAB PO SCH (21:17)
[2016-09-27] MEDS: inSUlin DETERMIR 1 UNIT/0.01 ML (LEVEMIR) CHARGE PER UNIT SQ SCH (21:17)
[2016-09-28 05:55] VITALS: BP 106/72
[2016-09-28] MEDS: inSUlin (REGULAR) HUMAN 1 UNIT/0.01 ML (CHARGE PER UNIT) SC SCH ×4 (05:55→20:52)
[2016-09-28] MEDS: KCL 20 MEQ TAB (K-DUR) PO SCH (05:59)
[2016-09-28] MEDS: predniSONE 10 MG TAB PO SCH (06:00)
[2016-09-28] MEDS: PANTOPRAZOLE 40 MG (PROTONIX) TAB PO SCH ×2 (06:00→17:53)
[2016-09-28] MEDS: predniSONE 5 MG TAB PO SCH (06:00)
[2016-09-28] MEDS: RT-ALBUTEROL SULF 2.5 MG/3 ML PRE-MIX VIAL IH SCH ×4 (06:51→19:14)
[2016-09-28] MEDS: RT-ADVAIR HFA 115/21 MCG PER PUFF IH SCH ×2 (07:03→19:14)
[2016-09-28] MEDS: UMECLIDINIUM BROMIDE (INCRUSE ELLIPTA) 7'S IH SCH (07:05)
--- NOTE | 2016-09-28 07:57 | Occupational Ther Daily Note ---
OT Current Status-Daily Note Subjective Pt alert, lying in bed. Finishing up with respiratory. Agreed to therapy. No c /o pain. Mental Status/Objective Patient Orientation: Person, Place, Time, Situation Functional [place] Measure 0=Not Assessed/NA 4=Minimal Assistance 1=Total Assistance 5=Supervision or Setup 2=Maximal Assistance 6=Modified [place] 3=Moderate Assistance 7=Complete [place] ADL-Treatment Functional [place] Measure 0=Not Assessed/NA 4=Minimal Assistance 1=Total Assistance 5=Supervision or Setup 2=Maximal Assistance 6=Modified [place] 3=Moderate Assistance 7=Complete IndependenceIRFPAI Quality Coding Scale 6 Independent with activity with or without an assistive device 5 Patient requires set up or clean up by helper. Patient completes activity by themselves 4 Supervision or touching assist (CGA). [place] provide cues , steadying assist 3 The helper provides less than half the effort to complete the activity 2 The helper provides more than half the effort to complete the activity 1 Dependent. The helper does all the effort to complete an activity 7 Patient refused to complete or attempt activity 9 The patient did not perform the activity before the current illness or injury 88 Not attempted due to Medical conditions or safety concerns Bathing (FIM): 5 (Supervision. Using grabbar, hand held shower and shower bench pt is able to bathe/dry self. Pt was able to take full shower then required recovery breaks before drying off and during drying off.) Bathing Location: L Arm, R Arm, L Upper Leg, R Upper Leg, L Lower Leg ( including foot), R Lower Leg (including foot), Chest, Abdomen, Buttocks, Perineal Area Upper Body (FIM): 5 (After set up, pt is able to complete by self.) Lower Body Dressing (FIM): 5 (After set up, pt is able to complete by self.) Toileting (FIM): 6 (Pt able to complete using grabbar and FWW by self.) Transfers (B, C, W/C) (FIM): 5 (Supervision. Using FWW pt is able to complete. ) Toilet/Commode Transfer (FIM): 5 (Supervision. Using grabbars and FWW, pt is able to complete.) Shower Transfer(FIM): 5 (Supervision. Using grabbar, FWW and shower bench pt is able to complete.) Pt started off therapy session strong then required more recovery breaks as fatigue set in. After therapy, pt sitting in recliner with call light/phone in reach. All needs met in room. OT Short Term Goals Short Term Goals Time Frame: Sep 30, 2016 Grooming(FIM): 5 Toileting(FIM): 4 Transfers (B,C,W/C) (FIM): 4 Toilet/Commode Transfer(FIM): 5 Additional Short Term Goals: 2-Verbalize Understanding, 3-ImproveStrength/Raheem 1=Demonstrate adherence to instructed precautions during ADL tasks. 2=Patient will verbalize/demonstrate understanding of assistive devices/ modifications for ADL. 3=Patient will improve strength/tolerance for activity to enable patient to perform ADL's. OT Scow Captain Goals Retirement Goals Time Frame: Oct 14, 2016 Eating (FIM): 6 Eating (QC): 6 Groomin Oral Hygiene (QC): 6 Bathing(FIM): 6 Shower/Bathe Self (QC): 6 Upper Body Dressing(FIM): 6 Upper Body Dressing (QC): 6 Lower Body Dressing(FIM): 6 Lower Body Dressing (QC): 6 On/Off Footwear (QC): 6 Toileting(FIM): 6 Toileting Hygiene (QC): 6 Transfers (B,C,W/C) (FIM): 6 Toilet/Commode Transfer(FIM): 6 Toilet/Commode Transfer (QC): 6 Shower Transfer(FIM): 6 Additional Goals: 2-Verbalize Understanding, 3-ImproveStrength/Raheem 1=Demonstrate adherence to instructed precautions during ADL tasks. 2=Patient will verbalize/demonstrate understanding of assistive devices/ modifications for ADL. 3=Patient will improve strength/tolerance for activity to enable patient to perform ADL's. OT Education/Plan Problem List/Assessment Pt would benefit from skilled OT to increase his independence in basic ADLs to allow him to safely return to his home at [place] and decrease caregiver burden Discharge Recommendations Plan/Recommendations: Continue POC Treatment Plan/Plan of Care Patient would benefit from OT for education, treatment and training to promote independence in ADL's, mobility, safety and/or upper extremity function for ADL' s. Plan of Care: ADL Retraining, Functional Mobility, Group Exercise/Act as Ind ( education, exercise, activity tolerance, functional activities, socialization), UE Funct Exercise/Act, UE Neuromus Re-Ed/Coord Treatment Duration: Oct 14, 2016 Frequency: Twice Daily (M-F, PRN weekends) Estimated Hrs Per Day: 1.5 hours per day (M-F, PRN weekends) Agreement: Yes Rehab Potential: Fair Time/GCodes Start Time: 07:00 Stop Time: 08:00 Total Time Billed (hr/min): 60 Billed Treatment Time 1 visit-ADL 4 (60 min) CHUCHO HENRY Sep 28, 2016 07:57
[2016-09-28 08:28] VITALS: BP 101/64
--- NOTE | 2016-09-28 08:31 | PM & R (SOAP) Progress Note ---
Subjective Time Seen by Provider: 07:55 Subjective/Events-last exam Patient was seen in his room this AM Called by RN yesterday re patient c/o shakiness and hand tremors DR Pollock has addressed Blood pressure down yesterday Dr Courtney has decreased lasix and started magox empirically with some improvement Patient still with some intermittent tremors in hands Patient SBA for transfers and peripheral edema down Review of Systems Neurological: Other (tremors) Objective Exam Last Set of Vital Signs Vital Signs Date Time Temp Pulse Resp B/P (MAP) Pulse Ox O2 Delivery O2 Flow Rate FiO2 09/28/16 07:05 98 Nasal Cannula 1.00 09/28/16 05:55 98.4 72 18 106/72 Capillary Refill : I&O Intake and Output 09/28/16 00:00 Intake Total 1550 ml Output Total 2350 ml Balance -800 ml Intake Oral 1550 ml Output Urine Total 2350 ml # Bowel Movements 1 General: Alert, No Acute Distress HEENT: Atraumatic, PERRLA Neck: Supple, No JVD Lungs: Normal Air Movement Heart: Other (irregular rate) Abdomen: Normal Bowel Sounds, Soft, No Tenderness Extremities: Other (trace edema) Skin: Other (Left medial thigh, upper -- 4.2 x 2.1 x 0.6 cm, 50% granulation, 50% slough; L medial thigh, lower. -- 2.7 x 0.6 x 0.2 cm, 100% slough.much improved today) Neuro: Other ( resting tremors in hands iontermittent and generalized weakness) Results Lab Laboratory Tests 09/25/16 11:11: Glucometer 152H 09/25/16 16:08: Glucometer 146H 09/25/16 20:18: Glucometer 223H 09/25/16 21:17: Glucometer 199H 09/26/16 04:25: Glucometer 102 09/26/16 11:20: Glucometer 156H 09/26/16 16:07: Glucometer 154H 09/26/16 19:54: Glucometer 187H 09/27/16 05:11: Glucometer 96 09/27/16 05:15: White Blood Count 9.7, Red Blood Count 2.99L, Hemoglobin 9.0L, Hematocrit 29L, Mean Corpuscular Volume 97, Mean Corpuscular Hemoglobin 30, Mean Corpuscular Hemoglobin Concent 31L, Red Cell Distribution Width 17.7H, Platelet Count 140, Mean Platelet Volume 9.5, Neutrophils (%) (Auto) 69, Lymphocytes (%) (Auto) 20, Monocytes (%) (Auto) 10, Eosinophils (%) (Auto) 0, Basophils (%) (Auto) 0, Neutrophils # (Auto) 6.7, Lymphocytes # (Auto) 2.0, Monocytes # (Auto) 1.0, Eosinophils # (Auto) 0.0, Basophils # (Auto) 0.0, Sodium Level 137, Potassium Level 3.5L, Chloride Level 94L, Carbon Dioxide Level 29, Anion Gap 14, Blood Urea Nitrogen 29H, Creatinine 1.03, Estimat Glomerular Filtration Rate > 60, BUN /Creatinine Ratio 28, Glucose Level 99, Calcium Level 9.2, Total Bilirubin 1.4H , Aspartate Amino Transf (AST/SGOT) 27, Alanine Aminotransferase (ALT/SGPT) 45, Alkaline Phosphatase 106, Total Protein 6.1L, Albumin 4.0 09/27/16 11:03: Glucometer 169H 09/27/16 15:42: Glucometer 219H 09/27/16 20:38: Glucometer 183H 09/28/16 05:54: Glucometer 107 Assessment/Plan Assessment S/P AVR and CaBG OSH Resp insufficiency 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 Elevated LFTS Postop AFIB controlled with meds wound left thigh much improved Resting tremor multifactorila most likeley -Prednisone being tapered and Lasix decreased and [employer] ordered Hypotension improved with decrease in lasix Plan Continue PT/OT F/U with DR Holbrook/Hospitalist service and Jun as per their [facility] Wound care addressed -See orders-improved Check Labs as per above-done Checked CXR Rechecked Labs-noted Next Team Conference later today-See report for full functional update and POC and ELOS MOnitor Blood pressure and tremors and adjust meds as needed NEGRITO THOMPSON MD Sep 28, 2016 08:31
[2016-09-28 09:05] VITALS: BP 90/54
[2016-09-28 09:06] VITALS: BP 98/65
[2016-09-28] MEDS: DIGOXIN 0.25 MG (LANOXIN) TAB PO SCH (09:09)
[2016-09-28] MEDS: guaiFENesin (MUCINEX) 600 MG TAB PO SCH ×2 (09:09→21:21)
[2016-09-28] MEDS: FINASTERIDE (PROSCAR) 5 MG TAB PO SCH (09:10)
[2016-09-28] MEDS: ASPIRIN E.C. 81 MG (ECOTRIN) TAB PO SCH (09:10)
[2016-09-28] MEDS: MAGNESIUM OXIDE (MAG-OX)400 MG TAB PO SCH ×2 (09:10→17:53)
[2016-09-28] MEDS: DAKIN'S 1/4 STRENGTH (0.125%) 473 ML BTL TOP SCH ×3 (09:11→21:24)
[2016-09-28] MEDS: DOCUSATE SODIUM 100 MG (COLACE) CAP PO SCH ×2 (09:17→21:20)
[2016-09-28] MEDS: MENTHOL/ZINC OXIDE (CALMOSEPTINE) 113 GM TUBE TOP SCH ×2 (09:18→21:22)
[2016-09-28] MEDS: FLUTICASONE NASAL SPRAY (FLONASE) 16 GM BTL NS SCH (09:18)
--- NOTE | 2016-09-28 10:12 | Physical Therapy Daily Note ---
PT Daily Note-Current Subjective Pt sitting recliner with feet raised and L Upper Thigh wound is open and nursing coming to dress wound shortly. Pt agrees to PT. Pain Location Body Site: Chest Pain Description: Ache, Tightness Comment: Pt reports tightness/ache in deep chest & shoulder blades w/SOB. Mental Status Patient Orientation: Person, Place, Situation Transfers Functional [place] Measure 0=Not Assessed/NA 4=Minimal Assistance 1=Total Assistance 5=Supervision or Setup 2=Maximal Assistance 6=Modified [place] 3=Moderate Assistance 7=Complete IndependenceIRFPAI Quality Coding Scale 6 Independent with activity with or without an assistive device 5 Patient requires set up or clean up by helper. Patient completes activity by themselves 4 Supervision or touching assist (CGA). [place] provide cues , steadying assist 3 The helper provides less than half the effort to complete the activity 2 The helper provides more than half the effort to complete the activity 1 Dependent. The helper does all the effort to complete an activity 7 Patient refused to complete or attempt activity 9 The patient did not perform the activity before the current illness or injury 88 Not attempted due to Medical conditions or safety concerns Scootin Sit to/from Stand: 5 Sit to Stand (QC): 5 Weight Bearing Weight Bearing Restriction: Full Weight Bearing Location Restriction: LE Bilateral Exercises Seated Therapy Exercises: Ankle pumps, Long arc quads, Hip flexion, Kicking activity Seated Reps: 20 Treatments Pt completed Seated Ex in recliner while waiting for nursing to dress thigh wound. Nurse dresses wound. Pt and ACADEMIC COMPUTING DIRECTOR discussed pt ed items such as possible discharge and the fact that pt wants it to be at least another week in ARU, pt also reported no change in how he was feeling from yesterday. Pt reports feeling very fatigued and SOB with any activity. Nurse takes pt's BP (90/54), P (76) & O2 (97%). Pt completes sit to stand from recliner. Pt reports slight dizziness so returns to recliner. Pt also reports deep pain in chest and shoulder blades, nursing was notified. Pt resting in recliner with feet up and all needs met at end of tx. Assessment Current Status: Poor Progress Pt is motivated but having difficulties with medical ailments. Pt's BP, pain and SOB are limiting participation in PT. Nursing notified. PT Short Term Goals Short Term Goals Time Frame: Oct 01, 2016 Transfers (B,C,W/C) (FIM): 4 Gait (FIM): 2 Distance (FIM): 6=352-78 ft Gait Distance Comment: 50 Gait Level of Assist: 5 Gait Assistive Device: FWW Wheelchair Distance: 25' PT Shooter Helper Goals Shooter Helper Goals PT Shelter Goals Time Frame: Oct 15, 2016 Transfers (B,C,W/C) (FIM): 6 Sit to Lying (QC): 6 Lying-Sitting on Side/Bed(QC): 6 Sit to Stand (QC): 6 Rollin Roll Left to Right (QC): 6 Chair/Rtc-xp-Onpps Xfer(QC): 6 Car Transfer (QC): 6 Does the Patient Walk: Yes Gait (FIM): 5 Gait distance (FIM): 2=640-66 ft Distance: 100 Walk 10 feet (QC): 6 Walk 10ft-Uneven Surface(QC): 6 Walk 50ft with 2 Turns (QC): 6 Walk 150 ft (QC): 9 Gait Level of Assist: 6 Gait Assistive Device: FWW Does the Pt use WC or Scooter?: No Stairs (FIM): 1 # of Steps: 1 1 Step (curb) (QC): 4 4 Steps (QC): 9 12 Steps (QC): 9 Stairs Level Of Assist: 4 Picking up an Object (QC): 6 PT Plan Problem List Problem List: Activity Tolerance, Functional Strength, Safety, Balance, Gait Treatment/Plan Treatment Plan: Continue Plan of Care Treatment Plan: Bed Mobility, Education, Functional Activity Raheem, Functional Strength, Group Therapy, Gait, Safety, Therapeutic Exercise, Transfers Treatment Duration: Oct 15, 2016 Frequency: At least 5-7 days/Wk (IRF) Estimated Hrs Per Day: 1.5 hours per day Patient and/or Family Agrees t: Yes Safety Risks/Education Patient Education: Gait Training, Transfer Techniques, Correct Positioning, Safety Issues Teaching Recipient: Patient Teaching Methods: Discussion Response to Teaching: Verbalize Understanding Time/GCodes Time In: 800 Time Out: 900 Total Billed Treatment Time: 60 Total Billed Treatment visit, FA x2 (35m) & EX x2 (25m) EMMA BELTRE PTA Sep 28, 2016 10:12
--- NOTE | 2016-09-28 10:37 | Progress Note-Hospitalist ---
Progress Note HPI/CC on Admission CC: Medical management following CABG w/aortic valve replacement HPI: This is a 74yoWM clinic patient of Dr Multani [place] [facility] [place] with s/ p uncomplicated CABG and aortic valve replacement by Dr Zafar on 08/10/16 and has since returned to IRU for recovery. RN called me with AF w/RVR and Dr Barahona graciously managed that last evening. Currently his bowels are moving and overall feeling better each and every day. Denies any pain and is using the IS and EZ-pap. Progress Notes/Assess & Plan Date Seen 09/28/16 Time Seen by Provider: 10:00 Admission Dx/Process Assessment: Status post bypass surgery with aortic valve replacement uncomplicated Overall debility Atrial fibrillation with rapid ventricular response managed by cardiology yesterday Hypertension Hyperlipidemia Anemia status post major cardiac surgery Edema Diagonsis/Assessment & Plan Patient Interview: Pt states that he is doing well O2 was discussed. It is possible that he may need to DC on O2 temporarily. Pt wants to DC this [place]. Pt feels that he needs another week in rehab, we may be able to wean him off O2 in that time. Physical exam stable. Pt has been having BMs every morning when he wakes Pts was visiting upon interview AFVSS, Pleasant, O x 3 Irr Irr, CTAB except subtle crackles bases Improved change in edema lower legs Assessment: Status post bypass surgery with aortic valve replacement uncomplicated Overall debility Atrial fibrillation with rapid ventricular response managed by cardiology yesterday Hypertension Hyperlipidemia Anemia status post major cardiac surgery Edema much improved Left thigh wound from graft site Plan: Lactulose BID prn Continue IS and breathing treatments Continue ambulating May need O2 at DC Scribed by Tameka Romano under the direct supervision of Dr. Armendariz. BUCK ARMENDARIZ DO Sep 28, 2016 10:37
[2016-09-28 11:34] VITALS: BP 101/65
[2016-09-28] MEDS: BUMETANIDE 1 MG (BUMEX) TAB PO SCH (12:03)
[2016-09-28] MEDS: SPIRONOLACTONE 25 MG (ALDACTONE) TAB PO SCH (12:04)
[2016-09-28] MEDS: meTOproloL SUCCINATE 50 MG (TOPROL XL) TAB PO SCH (12:13)
--- NOTE | 2016-09-28 14:52 | Therapy Group Daily Note ---
Therapy Daily Group Note Patient Education Topic Energy Cons, Exercises Exercises LE Seated Exercise, UE Exercise Other/Notes Pt transported via w/c to OT/PT group. Group consisted of introductions (name, place living, what inspires you), socialization, energy conservation education and upper/lower seated exercises that incorporated cardio. and energy conservation. Pt contributed to discussions effectively. Pt completed UE/LE exercises, fatigues and Ex slowly. Pt was able to verbalize understanding of education topic and elaborate on discussions. After group, pt transported via w /c to room. Call light/phone in reach. All needs met in room. Start Time: 13:00 Stop Time: 14:15 Total Billed Treatment Time: 75 Total Billed Treatment 1, GRP EMMA BELTRE TRACK DRESSER Sep 28, 2016 14:52
[2016-09-28 17:35] VITALS: BP 111/74
[2016-09-28] MEDS: ALFUZOSIN HCL 10 MG TAB (UROXATRAL) PO SCH (17:53)
[2016-09-28] MEDS: traZODone 50 MG (DESYREL) TAB PO SCH (21:20)
[2016-09-28] MEDS: ATORVASTATIN 80 MG (LIPITOR) TABLET PO SCH (21:21)
[2016-09-28] MEDS: inSUlin DETERMIR 1 UNIT/0.01 ML (LEVEMIR) CHARGE PER UNIT SQ SCH (21:21)
[2016-09-29] MEDS: inSUlin (REGULAR) HUMAN 1 UNIT/0.01 ML (CHARGE PER UNIT) SC SCH ×4 (05:41→22:33)
[2016-09-29] MEDS: PANTOPRAZOLE 40 MG (PROTONIX) TAB PO SCH ×2 (05:41→17:19)
[2016-09-29 06:00] VITALS: BP 103/66
[2016-09-29] MEDS: predniSONE 5 MG TAB PO SCH (06:05)
[2016-09-29] MEDS: KCL 20 MEQ TAB (K-DUR) PO SCH (06:05)
[2016-09-29] MEDS: predniSONE 10 MG TAB PO SCH (06:05)
[2016-09-29] MEDS: RT-ALBUTEROL SULF 2.5 MG/3 ML PRE-MIX VIAL IH SCH ×4 (06:46→19:00)
[2016-09-29] MEDS: UMECLIDINIUM BROMIDE (INCRUSE ELLIPTA) 7'S IH SCH (06:48)
[2016-09-29] MEDS: RT-ADVAIR HFA 115/21 MCG PER PUFF IH SCH ×2 (06:48→19:00)
--- NOTE | 2016-09-29 07:53 | Occupational Ther Daily Note ---
OT Current Status-Daily Note Subjective Pt alert, sitting in recliner. Pt SOA when POPE walked into room. BP at 0700- 111/68, pulse 68, O2 98%-nrsg notified. Pt agreed to therapy. Pt concerned about SOA and shaking hands. Pt taking increased time with ADL tasks today due to SOA and decreased activity tolerance. Mental Status/Objective Patient Orientation: Person, Place, Time, Situation Functional [place] Measure 0=Not Assessed/NA 4=Minimal Assistance 1=Total Assistance 5=Supervision or Setup 2=Maximal Assistance 6=Modified [place] 3=Moderate Assistance 7=Complete [place] ADL-Treatment Pt required multiple lengthy recovery breaks during therapy. POPE monitored BP and O2 sats throughout therapy and reported to nrsg. Pt's BP and O2 were WNL though continued to be SOA. Pt was able to complete each task with SBA with frequent recovery breaks. After therapy, pt sitting in recliner with call light /phone in reach, feet elevated. All needs met in room. Functional [place] Measure 0=Not Assessed/NA 4=Minimal Assistance 1=Total Assistance 5=Supervision or Setup 2=Maximal Assistance 6=Modified [place] 3=Moderate Assistance 7=Complete IndependenceIRFPAI Quality Coding Scale 6 Independent with activity with or without an assistive device 5 Patient requires set up or clean up by helper. Patient completes activity by themselves 4 Supervision or touching assist (CGA). [place] provide cues , steadying assist 3 The helper provides less than half the effort to complete the activity 2 The helper provides more than half the effort to complete the activity 1 Dependent. The helper does all the effort to complete an activity 7 Patient refused to complete or attempt activity 9 The patient did not perform the activity before the current illness or injury 88 Not attempted due to Medical conditions or safety concerns Bathing (FIM): 5 (Using grabbars, shower bench, hand held shower pt is able to complete with supervision.) Bathing Location: L Arm, R Arm, L Upper Leg, R Upper Leg, L Lower Leg ( including foot), R Lower Leg (including foot), Chest, Abdomen, Buttocks, Perineal Area Upper Body (FIM): 5 (After set up, pt able to complete by self.) Lower Body Dressing (FIM): 5 (After set up, pt able to complete by self using AE to don socks.) Toileting (FIM): 6 (Using grabbars and FWW, pt is able to complete by self.) Transfers (B, C, W/C) (FIM): 5 (Supervision using FWW.) Toilet/Commode Transfer (FIM): 5 (Using FWW and grabbar, pt is able to complete.) Shower Transfer(FIM): 5 (Supervision using FWW, shower bench and grabbars.) OT Short Term Goals Short Term Goals Time Frame: Sep 30, 2016 Grooming(FIM): 5 Toileting(FIM): 4 Transfers (B,C,W/C) (FIM): 4 Toilet/Commode Transfer(FIM): 5 Additional Short Term Goals: 2-Verbalize Understanding, 3-ImproveStrength/Raheem 1=Demonstrate adherence to instructed precautions during ADL tasks. 2=Patient will verbalize/demonstrate understanding of assistive devices/ modifications for ADL. 3=Patient will improve strength/tolerance for activity to enable patient to perform ADL's. OT Prison Goals Coal Digger Goals Time Frame: Oct 14, 2016 Eating (FIM): 6 Eating (QC): 6 Groomin Oral Hygiene (QC): 6 Bathing(FIM): 6 Shower/Bathe Self (QC): 6 Upper Body Dressing(FIM): 6 Upper Body Dressing (QC): 6 Lower Body Dressing(FIM): 6 Lower Body Dressing (QC): 6 On/Off Footwear (QC): 6 Toileting(FIM): 6 Toileting Hygiene (QC): 6 Transfers (B,C,W/C) (FIM): 6 Toilet/Commode Transfer(FIM): 6 Toilet/Commode Transfer (QC): 6 Shower Transfer(FIM): 6 Additional Goals: 2-Verbalize Understanding, 3-ImproveStrength/Raheem 1=Demonstrate adherence to instructed precautions during ADL tasks. 2=Patient will verbalize/demonstrate understanding of assistive devices/ modifications for ADL. 3=Patient will improve strength/tolerance for activity to enable patient to perform ADL's. OT Education/Plan Problem List/Assessment Pt would benefit from skilled OT to increase his independence in basic ADLs to allow him to safely return to his home at [place] and decrease caregiver burden Discharge Recommendations Plan/Recommendations: Continue POC Treatment Plan/Plan of Care Patient would benefit from OT for education, treatment and training to promote independence in ADL's, mobility, safety and/or upper extremity function for ADL' s. Plan of Care: ADL Retraining, Functional Mobility, Group Exercise/Act as Ind ( education, exercise, activity tolerance, functional activities, socialization), UE Funct Exercise/Act, UE Neuromus Re-Ed/Coord Treatment Duration: Oct 14, 2016 Frequency: Twice Daily (M-F, PRN weekends) Estimated Hrs Per Day: 1.5 hours per day (M-F, PRN weekends) Agreement: Yes Rehab Potential: Fair Time/GCodes Start Time: 07:00 Stop Time: 08:30 Total Time Billed (hr/min): 90 Billed Treatment Time 1 visit-ADL 6 (90 min) CHUCHO HENRY Sep 29, 2016 07:53
[2016-09-29] MEDS: FLUTICASONE NASAL SPRAY (FLONASE) 16 GM BTL NS SCH (08:03)
[2016-09-29] MEDS: MENTHOL/ZINC OXIDE (CALMOSEPTINE) 113 GM TUBE TOP SCH ×2 (08:03→20:49)
[2016-09-29] MEDS: ASPIRIN E.C. 81 MG (ECOTRIN) TAB PO SCH (08:04)
[2016-09-29] MEDS: DAKIN'S 1/4 STRENGTH (0.125%) 473 ML BTL TOP SCH ×2 (08:04→20:50)
[2016-09-29] MEDS: DIGOXIN 0.25 MG (LANOXIN) TAB PO SCH (08:04)
[2016-09-29] MEDS: FINASTERIDE (PROSCAR) 5 MG TAB PO SCH (08:04)
[2016-09-29] MEDS: meTOproloL SUCCINATE 50 MG (TOPROL XL) TAB PO SCH (08:04)
[2016-09-29] MEDS: DOCUSATE SODIUM 100 MG (COLACE) CAP PO SCH ×2 (08:04→20:47)
[2016-09-29] MEDS: guaiFENesin (MUCINEX) 600 MG TAB PO SCH ×2 (08:04→20:47)
[2016-09-29] MEDS: MAGNESIUM OXIDE (MAG-OX)400 MG TAB PO SCH ×2 (08:04→17:18)
[2016-09-29 08:05] VITALS: BP 117/68
[2016-09-29] MEDS: SPIRONOLACTONE 25 MG (ALDACTONE) TAB PO SCH (09:11)
--- NOTE | 2016-09-29 09:23 | PM & R (SOAP) Progress Note ---
Subjective Time Seen by Provider: 07:35 Subjective/Events-last exam Patient was seen in his room this AM Patient SBA for transfers Edema decreasing Objective Exam Last Set of Vital Signs Vital Signs Date Time Temp Pulse Resp B/P (MAP) Pulse Ox O2 Delivery O2 Flow Rate FiO2 09/29/16 09:15 Nasal Cannula 2.00 09/29/16 08:05 71 117/68 09/29/16 06:46 98 09/29/16 06:00 98.5 18 Capillary Refill : I&O Intake and Output 09/29/16 00:00 Intake Total 1410 ml Output Total 2150 ml Balance -740 ml Intake Oral 1410 ml Output Urine Total 2150 ml # Bowel Movements 1 General: Alert, No Acute Distress HEENT: Atraumatic, PERRLA Neck: Supple, No JVD Lungs: Normal Air Movement Heart: Other (irregular rate) Abdomen: Normal Bowel Sounds, Soft, No Tenderness Extremities: Other (trace edema) Skin: Other (Left medial thigh, upper -- 4.2 x 2.1 x 0.6 cm, 50% granulation, 50% slough; L medial thigh, lower. -- 2.7 x 0.6 x 0.2 cm, 100% slough.much improved today) Neuro: Other ( resting tremors in hands iontermittent and generalized weakness) Results Lab Laboratory Tests 09/26/16 11:20: Glucometer 156H 09/26/16 16:07: Glucometer 154H 09/26/16 19:54: Glucometer 187H 09/27/16 05:11: Glucometer 96 09/27/16 05:15: White Blood Count 9.7, Red Blood Count 2.99L, Hemoglobin 9.0L, Hematocrit 29L, Mean Corpuscular Volume 97, Mean Corpuscular Hemoglobin 30, Mean Corpuscular Hemoglobin Concent 31L, Red Cell Distribution Width 17.7H, Platelet Count 140, Mean Platelet Volume 9.5, Neutrophils (%) (Auto) 69, Lymphocytes (%) (Auto) 20, Monocytes (%) (Auto) 10, Eosinophils (%) (Auto) 0, Basophils (%) (Auto) 0, Neutrophils # (Auto) 6.7, Lymphocytes # (Auto) 2.0, Monocytes # (Auto) 1.0, Eosinophils # (Auto) 0.0, Basophils # (Auto) 0.0, Sodium Level 137, Potassium Level 3.5L, Chloride Level 94L, Carbon Dioxide Level 29, Anion Gap 14, Blood Urea Nitrogen 29H, Creatinine 1.03, Estimat Glomerular Filtration Rate > 60, BUN /Creatinine Ratio 28, Glucose Level 99, Calcium Level 9.2, Total Bilirubin 1.4H , Aspartate Amino Transf (AST/SGOT) 27, Alanine Aminotransferase (ALT/SGPT) 45, Alkaline Phosphatase 106, Total Protein 6.1L, Albumin 4.0 09/27/16 11:03: Glucometer 169H 09/27/16 15:42: Glucometer 219H 09/27/16 20:38: Glucometer 183H 09/28/16 05:54: Glucometer 107 09/28/16 11:08: Glucometer 146H 09/28/16 15:54: Glucometer 178H 09/28/16 20:52: Glucometer 147H 09/29/16 05:40: Glucometer 101 Assessment/Plan Assessment S/P AVR and CaBG OSH Resp insufficiency 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 Elevated LFTS Postop AFIB controlled with meds wound left thigh much improved Resting tremor multifactorila most likeley -Prednisone being tapered and Lasix decreased and Mogox ordered Hypotension improved with decrease in lasix Plan Continue PT/OT F/U with DR Holbrook/Hospitalist service and Jun as per their scehdule Wound care addressed -See orders-improved Check Labs as per above-done Checked CXR Rechecked Labs-noted Team Conference held yesterday-See report for full functional update and POC and ELOS MOnitor Blood pressure and tremors and adjust meds as needed-doing better NEGRITO THOMPSON MD Sep 29, 2016 09:23
--- NOTE | 2016-09-29 11:02 | Physical Therapy Daily Note ---
PT Daily Note-Current Subjective Pt. agrees to Rx. States he is plagued by being SOB , knows his O2 sats are acceptable but he cant get a full deep breath. States he has been told at [facility] that he probably has lung CA and feels he definitely has a lung volume problem. States his understanding is that he cant go have diagnostics until he is DCd Appearance pts. abdomen full and hard and asymmetrical with left side much ivan and harder. Pt. states he feels this is "something going on related to the kidney cancer I had" Mental Status Patient Orientation: Normal For Age Attachments: Oxygen (2l) Transfers Functional [place] Measure 0=Not Assessed/NA 4=Minimal Assistance 1=Total Assistance 5=Supervision or Setup 2=Maximal Assistance 6=Modified [place] 3=Moderate Assistance 7=Complete IndependenceIRFPAI Quality Coding Scale 6 Independent with activity with or without an assistive device 5 Patient requires set up or clean up by helper. Patient completes activity by themselves 4 Supervision or touching assist (CGA). [place] provide cues , steadying assist 3 The helper provides less than half the effort to complete the activity 2 The helper provides more than half the effort to complete the activity 1 Dependent. The helper does all the effort to complete an activity 7 Patient refused to complete or attempt activity 9 The patient did not perform the activity before the current illness or injury 88 Not attempted due to Medical conditions or safety concerns Transfers (B, C, W/C) (FIM): 5 Scootin Rollin Supine to/from Sit: 5 Sit to/from Stand: 5 Bed to/from Chair: 5 Gait Training Does the Patient Walk?: Yes Gait (FIM): 5 Distance (FIM): 3=150 ft (150,100X2) Gait Level of Assist: 5 Gait Persons Needed: 1 Gait Assistive Device: FWW pt. work hard to ambulate and want to meet goal fo 150ft but needs 2-3 standing rest breaks during walk. O2 sats >90% but pt observably SOB and states he cant get a deep breath Stair Training Stair Training: Handrails/: 2 handrails Stairs (FIM): 2 #of Steps: 4 Stairs: Pattern: Step to Level of Assist: 4 Exercises Supine Ex: Ankle pumps, Quad Set, Rolling, Heel Slides, Short Arc Quads, Straight leg raise, Hip abd/add Supine Reps: 12 Assessment Current Status: Good Progress SOB but good sats >90% during activity PT Short Term Goals Short Term Goals Time Frame: Oct 01, 2016 Transfers (B,C,W/C) (FIM): 4 Gait (FIM): 2 Distance (FIM): 5=136-56 ft Gait Distance Comment: 50 Gait Level of Assist: 5 Gait Assistive Device: FWW Wheelchair Distance: 25' PT Snf Goals Snf Goals PT Decorative Engraver Apprentice Goals Time Frame: Oct 15, 2016 Transfers (B,C,W/C) (FIM): 6 Sit to Lying (QC): 6 Lying-Sitting on Side/Bed(QC): 6 Sit to Stand (QC): 6 Rollin Roll Left to Right (QC): 6 Chair/Slx-gc-Ecpsx Xfer(QC): 6 Car Transfer (QC): 6 Does the Patient Walk: Yes Gait (FIM): 5 Gait distance (FIM): 3=635-25 ft Distance: 100 Walk 10 feet (QC): 6 Walk 10ft-Uneven Surface(QC): 6 Walk 50ft with 2 Turns (QC): 6 Walk 150 ft (QC): 9 Gait Level of Assist: 6 Gait Assistive Device: FWW Does the Pt use WC or Scooter?: No Stairs (FIM): 1 # of Steps: 1 1 Step (curb) (QC): 4 4 Steps (QC): 9 12 Steps (QC): 9 Stairs Level Of Assist: 4 Picking up an Object (QC): 6 PT Plan Treatment/Plan Treatment Plan: Continue Plan of Care Treatment Plan: Bed Mobility, Education, Functional Activity Raheem, Functional Strength, Group Therapy, Gait, Safety, Therapeutic Exercise, Transfers Treatment Duration: Oct 15, 2016 Frequency: At least 5-7 days/Wk (IRF) Estimated Hrs Per Day: 1.5 hours per day Patient and/or Family Agrees t: Yes Safety Risks/Education Patient Education: Gait Training, Transfer Techniques, Steps Teaching Recipient: Patient Teaching Methods: Demonstration, Discussion Response to Teaching: Verbalize Understanding, Return Demonstration, Reinforcement Needed Time/GCodes Time In: 900 Time Out: 1000 Total Billed Treatment Time: 60 Total Billed Treatment 1,GT30m,FA30m G Codes Necessary: No MEE MALDONADO MICA PASTER Sep 29, 2016 11:02
--- NOTE | 2016-09-29 14:03 | Physical Therapy Daily Note ---
PT Daily Note-Current Subjective Pt. states he has heard from his nurse that they may be staring some diuretics to help him breath better. Pt. is glad. States he is very tired and having trouble getting comfortable in recliner but it is the best [lace to get his air. After some explanation and readjusting and teaching pt. push himself up in the chair pt. states he is more comfortable and getting his air a little better Pain Numeric Pain Scale: 0-No Pain Appearance breathing hard, full hard abdomen Mental Status Patient Orientation: Normal For Age Transfers Functional [place] Measure 0=Not Assessed/NA 4=Minimal Assistance 1=Total Assistance 5=Supervision or Setup 2=Maximal Assistance 6=Modified [place] 3=Moderate Assistance 7=Complete IndependenceIRFPAI Quality Coding Scale 6 Independent with activity with or without an assistive device 5 Patient requires set up or clean up by helper. Patient completes activity by themselves 4 Supervision or touching assist (CGA). [place] provide cues , steadying assist 3 The helper provides less than half the effort to complete the activity 2 The helper provides more than half the effort to complete the activity 1 Dependent. The helper does all the effort to complete an activity 7 Patient refused to complete or attempt activity 9 The patient did not perform the activity before the current illness or injury 88 Not attempted due to Medical conditions or safety concerns it to stand x2 all Mod I Exercises Supine Ex: Ankle pumps, Quad Set, Rolling, Glut sets, Heel Slides, Short Arc Quads, Scooting, Straight leg raise, Hip abd/add Supine Reps: 15 Assessment Current Status: Good Progress breathing is labored PT Short Term Goals Short Term Goals Time Frame: Oct 01, 2016 Transfers (B,C,W/C) (FIM): 4 Gait (FIM): 2 Distance (FIM): 1=028-70 ft Gait Distance Comment: 50 Gait Level of Assist: 5 Gait Assistive Device: FWW Wheelchair Distance: 25' PT Hed[place]ler Tier Goals Jail Goals PT Jail Goals Time Frame: Oct 15, 2016 Transfers (B,C,W/C) (FIM): 6 Sit to Lying (QC): 6 Lying-Sitting on Side/Bed(QC): 6 Sit to Stand (QC): 6 Rollin Roll Left to Right (QC): 6 Chair/Kbw-vb-Owmbb Xfer(QC): 6 Car Transfer (QC): 6 Does the Patient Walk: Yes Gait (FIM): 5 Gait distance (FIM): 5=927-23 ft Distance: 100 Walk 10 feet (QC): 6 Walk 10ft-Uneven Surface(QC): 6 Walk 50ft with 2 Turns (QC): 6 Walk 150 ft (QC): 9 Gait Level of Assist: 6 Gait Assistive Device: FWW Does the Pt use WC or Scooter?: No Stairs (FIM): 1 # of Steps: 1 1 Step (curb) (QC): 4 4 Steps (QC): 9 12 Steps (QC): 9 Stairs Level Of Assist: 4 Picking up an Object (QC): 6 PT Plan Treatment/Plan Treatment Plan: Continue Plan of Care Treatment Plan: Bed Mobility, Education, Functional Activity Raheem, Functional Strength, Group Therapy, Gait, Safety, Therapeutic Exercise, Transfers Treatment Duration: Oct 15, 2016 Frequency: At least 5-7 days/Wk (IRF) Estimated Hrs Per Day: 1.5 hours per day Patient and/or Family Agrees t: Yes Safety Risks/Education Patient Education: Transfer Techniques Teaching Recipient: Patient Teaching Methods: Demonstration, Discussion Response to Teaching: Return Demonstration, Reinforcement Needed using levers on arm rests to recline head of recliner while pushing with at least on foot. Time/GCodes Time In: 1330 Time Out: 1400 Total Billed Treatment Time: 30 Total Billed Treatment 1,EX20m,FA10m G Codes Necessary: MEE Silva ELECTRONIC DATA INTERCHANGE SPECIALIST Sep 29, 2016 14:03
[2016-09-29 17:10] VITALS: BP 104/62
[2016-09-29] MEDS: BUMETANIDE 1 MG (BUMEX) TAB PO SCH (17:18)
[2016-09-29] MEDS: ALFUZOSIN HCL 10 MG TAB (UROXATRAL) PO SCH (17:19)
[2016-09-29] MEDS: ATORVASTATIN 80 MG (LIPITOR) TABLET PO SCH (20:47)
[2016-09-29] MEDS: traZODone 50 MG (DESYREL) TAB PO SCH (20:47)
[2016-09-29] MEDS: inSUlin DETERMIR 1 UNIT/0.01 ML (LEVEMIR) CHARGE PER UNIT SQ SCH (22:32)
[2016-09-30 05:00] VITALS: BP 93/60
[2016-09-30] MEDS: inSUlin (REGULAR) HUMAN 1 UNIT/0.01 ML (CHARGE PER UNIT) SC SCH ×4 (06:12→21:32)
[2016-09-30] MEDS: KCL 20 MEQ TAB (K-DUR) PO SCH (06:12)
[2016-09-30] MEDS: PANTOPRAZOLE 40 MG (PROTONIX) TAB PO SCH ×2 (06:12→16:25)
[2016-09-30] MEDS: predniSONE 10 MG TAB PO SCH (06:12)
[2016-09-30] MEDS: predniSONE 5 MG TAB PO SCH (06:12)
[2016-09-30] MEDS: RT-ALBUTEROL SULF 2.5 MG/3 ML PRE-MIX VIAL IH SCH ×4 (06:20→20:29)
[2016-09-30] MEDS: RT-ADVAIR HFA 115/21 MCG PER PUFF IH SCH ×2 (06:20→20:29)
[2016-09-30] MEDS: UMECLIDINIUM BROMIDE (INCRUSE ELLIPTA) 7'S IH SCH (06:21)
--- NOTE | 2016-09-30 07:36 | Occupational Ther Daily Note ---
OT Current Status-Daily Note Subjective Pt alert, lying in bed. Pt agreed to therapy. No c/o pain. Not initially SOA , but throughout treatment Mental Status/Objective Patient Orientation: Person, Place, Time, Situation Functional [place] Measure 0=Not Assessed/NA 4=Minimal Assistance 1=Total Assistance 5=Supervision or Setup 2=Maximal Assistance 6=Modified [place] 3=Moderate Assistance 7=Complete [place] ADL-Treatment Pt did required multiple recovery breaks between tasks. Pt would finish task then took break. After therapy, pt sitting in recliner with call light/phone in reach. All needs met in room. Functional [place] Measure 0=Not Assessed/NA 4=Minimal Assistance 1=Total Assistance 5=Supervision or Setup 2=Maximal Assistance 6=Modified [place] 3=Moderate Assistance 7=Complete IndependenceIRFPAI Quality Coding Scale 6 Independent with activity with or without an assistive device 5 Patient requires set up or clean up by helper. Patient completes activity by themselves 4 Supervision or touching assist (CGA). [place] provide cues , steadying assist 3 The helper provides less than half the effort to complete the activity 2 The helper provides more than half the effort to complete the activity 1 Dependent. The helper does all the effort to complete an activity 7 Patient refused to complete or attempt activity 9 The patient did not perform the activity before the current illness or injury 88 Not attempted due to Medical conditions or safety concerns Bathing (FIM): 5 (Supervision using grabbar, shower bench and hand held shower pt is able to bathe and dry self.) Bathing Location: L Arm, R Arm, L Upper Leg, R Upper Leg, L Lower Leg ( including foot), R Lower Leg (including foot), Chest, Abdomen, Buttocks, Perineal Area Upper Body (FIM): 5 (Set up, pt able to complete by self.) Lower Body Dressing (FIM): 5 (After set up, pt is able to complete lower body dressing. Uses sock aide to don socks.) Toileting (FIM): 6 (Using grabbar and FWW, pt is able to manipulate clothing and cleanse self.) Transfers (B, C, W/C) (FIM): 5 (Supervision using FWW.) Toilet/Commode Transfer (FIM): 6 (Using grabbars and FWW pt is able to complete transfer.) Shower Transfer(FIM): 5 (Using FWW, grabbar and shower bench. Pt is able to complete transfer.) OT Short Term Goals Short Term Goals Time Frame: Sep 30, 2016 Grooming(FIM): 5 Toileting(FIM): 4 Transfers (B,C,W/C) (FIM): 4 Toilet/Commode Transfer(FIM): 5 Additional Short Term Goals: 2-Verbalize Understanding, 3-ImproveStrength/Raheem 1=Demonstrate adherence to instructed precautions during ADL tasks. 2=Patient will verbalize/demonstrate understanding of assistive devices/ modifications for ADL. 3=Patient will improve strength/tolerance for activity to enable patient to perform ADL's. OT Retail Planner Goals Residential Goals Time Frame: Oct 14, 2016 Eating (FIM): 6 Eating (QC): 6 Groomin Oral Hygiene (QC): 6 Bathing(FIM): 6 Shower/Bathe Self (QC): 6 Upper Body Dressing(FIM): 6 Upper Body Dressing (QC): 6 Lower Body Dressing(FIM): 6 Lower Body Dressing (QC): 6 On/Off Footwear (QC): 6 Toileting(FIM): 6 Toileting Hygiene (QC): 6 Transfers (B,C,W/C) (FIM): 6 Toilet/Commode Transfer(FIM): 6 Toilet/Commode Transfer (QC): 6 Shower Transfer(FIM): 6 Additional Goals: 2-Verbalize Understanding, 3-ImproveStrength/Raheem 1=Demonstrate adherence to instructed precautions during ADL tasks. 2=Patient will verbalize/demonstrate understanding of assistive devices/ modifications for ADL. 3=Patient will improve strength/tolerance for activity to enable patient to perform ADL's. OT Education/Plan Problem List/Assessment Pt would benefit from skilled OT to increase his independence in basic ADLs to allow him to safely return to his home at [place] and decrease caregiver burden Discharge Recommendations Plan/Recommendations: Continue POC Treatment Plan/Plan of Care Patient would benefit from OT for education, treatment and training to promote independence in ADL's, mobility, safety and/or upper extremity function for ADL' s. Plan of Care: ADL Retraining, Functional Mobility, Group Exercise/Act as Ind ( education, exercise, activity tolerance, functional activities, socialization), UE Funct Exercise/Act, UE Neuromus Re-Ed/Coord Treatment Duration: Oct 14, 2016 Frequency: Twice Daily (M-F, PRN weekends) Estimated Hrs Per Day: 1.5 hours per day (M-F, PRN weekends) Agreement: Yes Rehab Potential: Fair Time/GCodes Start Time: 06:50 Stop Time: 08:00 Total Time Billed (hr/min): 70 Billed Treatment Time 1 visit-ADL 5 (70 min) CHUCHO HENRY Sep 30, 2016 07:36
[2016-09-30] MEDS: DIGOXIN 0.25 MG (LANOXIN) TAB PO SCH (08:13)
[2016-09-30] MEDS: DOCUSATE SODIUM 100 MG (COLACE) CAP PO SCH ×2 (08:13→20:38)
[2016-09-30] MEDS: BUMETANIDE 1 MG (BUMEX) TAB PO SCH ×2 (08:13→17:15)
[2016-09-30] MEDS: ASPIRIN E.C. 81 MG (ECOTRIN) TAB PO SCH (08:13)
[2016-09-30] MEDS: guaiFENesin (MUCINEX) 600 MG TAB PO SCH ×2 (08:13→20:38)
[2016-09-30] MEDS: MAGNESIUM OXIDE (MAG-OX)400 MG TAB PO SCH ×2 (08:13→17:15)
[2016-09-30] MEDS: SPIRONOLACTONE 25 MG (ALDACTONE) TAB PO SCH (08:13)
[2016-09-30] MEDS: meTOproloL SUCCINATE 50 MG (TOPROL XL) TAB PO SCH (08:13)
[2016-09-30] MEDS: FLUTICASONE NASAL SPRAY (FLONASE) 16 GM BTL NS SCH (08:13)
[2016-09-30] MEDS: FINASTERIDE (PROSCAR) 5 MG TAB PO SCH (08:13)
[2016-09-30] MEDS: MENTHOL/ZINC OXIDE (CALMOSEPTINE) 113 GM TUBE TOP SCH ×2 (08:14→21:41)
[2016-09-30] MEDS: DAKIN'S 1/4 STRENGTH (0.125%) 473 ML BTL TOP SCH ×2 (08:14→21:41)
--- NOTE | 2016-09-30 09:18 | PM & R (SOAP) Progress Note ---
Subjective Time Seen by Provider: 07:40 Subjective/Events-last exam Patient was seen in his room this am Patient modified Independent for transfers Objective Exam Last Set of Vital Signs Vital Signs Date Time Temp Pulse Resp B/P (MAP) Pulse Ox O2 Delivery O2 Flow Rate FiO2 09/30/16 08:53 Nasal Cannula 2.00 09/30/16 06:24 98 09/30/16 05:00 98.0 75 20 93/60 Capillary Refill : I&O Intake and Output 09/30/16 00:00 Intake Total 1400 ml Output Total 1525 ml Balance -125 ml Intake Oral 1400 ml Output Urine Total 1525 ml # Bowel Movements 1 General: Alert, No Acute Distress HEENT: Atraumatic, PERRLA Neck: Supple, No JVD Lungs: Normal Air Movement Heart: Other (irregular rate) Abdomen: Normal Bowel Sounds, Soft, No Tenderness Extremities: Other (trace edema) Skin: Other (Left medial thigh, upper -- 4.2 x 2.1 x 0.6 cm, 50% granulation, 50% slough; L medial thigh, lower. -- 2.7 x 0.6 x 0.2 cm, 100% slough.much improved today) Neuro: Other ( resting tremors in hands iontermittent and generalized weakness) Results Lab Laboratory Tests 09/27/16 11:03: Glucometer 169H 09/27/16 15:42: Glucometer 219H 09/27/16 20:38: Glucometer 183H 09/28/16 05:54: Glucometer 107 09/28/16 11:08: Glucometer 146H 09/28/16 15:54: Glucometer 178H 09/28/16 20:52: Glucometer 147H 09/29/16 05:40: Glucometer 101 09/29/16 11:10: Glucometer 146H 09/29/16 16:00: Glucometer 171H 09/29/16 22:28: Glucometer 149H 09/30/16 05:12: Glucometer 107 Assessment/Plan Assessment S/P AVR and CaBG OSH Resp insufficiency 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 Elevated LFTS Postop AFIB controlled with meds wound left thigh much improved Resting tremor multifactorila most likeley -Prednisone being tapered and Lasix decreased and Mogox ordered Hypotension improved with decrease in lasix Plan Continue PT/OT F/U with DR Holbrook/Hospitalist service and Jun as per their scehdule Wound care addressed -See orders-improved Check Labs as per above-done Checked CXR Rechecked Labs-noted Team Conference held 09-28-16-See report for full functional update and POC and ELOS MOnitor Blood pressure and tremors and adjust meds as needed-doing better NEGRITO THOMPSON MD Sep 30, 2016 09:18
--- NOTE | 2016-09-30 10:03 | Physical Therapy Daily Note ---
PT Daily Note-Current Subjective Pt. states he feels he is about the same but did get some lasix and is feeling a little better as far as swelling being down etc. Pain Numeric Pain Scale: 0-No Pain Mental Status Patient Orientation: Normal For Age Attachments: Oxygen (3L) Transfers Functional [place] Measure 0=Not Assessed/NA 4=Minimal Assistance 1=Total Assistance 5=Supervision or Setup 2=Maximal Assistance 6=Modified [place] 3=Moderate Assistance 7=Complete IndependenceIRFPAI Quality Coding Scale 6 Independent with activity with or without an assistive device 5 Patient requires set up or clean up by helper. Patient completes activity by themselves 4 Supervision or touching assist (CGA). [place] provide cues , steadying assist 3 The helper provides less than half the effort to complete the activity 2 The helper provides more than half the effort to complete the activity 1 Dependent. The helper does all the effort to complete an activity 7 Patient refused to complete or attempt activity 9 The patient did not perform the activity before the current illness or injury 88 Not attempted due to Medical conditions or safety concerns Transfers (B, C, W/C) (FIM): 5 Scootin Rollin Supine to/from Sit: 5 Sit to/from Stand: 5 Bed to/from Chair: 5 Gait Training Does the Patient Walk?: Yes Gait (FIM): 2 Distance (FIM): 9=207-35 ft (100x3) Gait Level of Assist: 5 Gait Persons Needed: 1 Gait Assistive Device: FWW pt. on O2 at 3L but still requires sitting or standing rest breaks secondary to SOB Exercises Seated Therapy Exercises: Ankle pumps, Sit to stand, Long arc quads, Hip flexion Seated Reps: 12 leg presses on nustep x12 NuStep Minutes: 10 NuStep Workload: 2 Assessment Current Status: Good Progress conts SOB with activity PT Short Term Goals Short Term Goals Time Frame: Oct 01, 2016 Transfers (B,C,W/C) (FIM): 4 Gait (FIM): 2 Distance (FIM): 8=216-74 ft Gait Distance Comment: 50 Gait Level of Assist: 5 Gait Assistive Device: FWW Wheelchair Distance: 25' PT Sales Expert Home Theater Goals Sales Expert Home Theater Goals PT Chcf Goals Time Frame: Oct 15, 2016 Transfers (B,C,W/C) (FIM): 6 Sit to Lying (QC): 6 Lying-Sitting on Side/Bed(QC): 6 Sit to Stand (QC): 6 Rollin Roll Left to Right (QC): 6 Chair/Vwi-td-Rkxom Xfer(QC): 6 Car Transfer (QC): 6 Does the Patient Walk: Yes Gait (FIM): 5 Gait distance (FIM): 2=904-04 ft Distance: 100 Walk 10 feet (QC): 6 Walk 10ft-Uneven Surface(QC): 6 Walk 50ft with 2 Turns (QC): 6 Walk 150 ft (QC): 9 Gait Level of Assist: 6 Gait Assistive Device: FWW Does the Pt use WC or Scooter?: No Stairs (FIM): 1 # of Steps: 1 1 Step (curb) (QC): 4 4 Steps (QC): 9 12 Steps (QC): 9 Stairs Level Of Assist: 4 Picking up an Object (QC): 6 PT Plan Treatment/Plan Treatment Plan: Continue Plan of Care Treatment Plan: Bed Mobility, Education, Functional Activity Raheem, Functional Strength, Group Therapy, Gait, Safety, Therapeutic Exercise, Transfers Treatment Duration: Oct 15, 2016 Frequency: At least 5-7 days/Wk (IRF) Estimated Hrs Per Day: 1.5 hours per day Patient and/or Family Agrees t: Yes Safety Risks/Education Patient Education: Gait Training, Transfer Techniques, Correct Positioning, Safety Issues Teaching Recipient: Patient Teaching Methods: Demonstration, Discussion Response to Teaching: Verbalize Understanding, Return Demonstration, Reinforcement Needed Time/GCodes Time In: 900 Time Out: 1000 Total Billed Treatment Time: 60 Total Billed Treatment 1,EX30m,GT15m,FA15m MEE MALDONADO TRANSACTIONAL ATTORNEY Sep 30, 2016 10:02
--- NOTE | 2016-09-30 14:46 | Therapy Group Daily Note ---
Therapy Daily Group Note Patient Education Topic Other List Below Exercises LE Seated Exercise, Other Other/Notes Pt was an active participant in OT/PT group. He introduced himself by sharing his favorite meal, then contributed to group discussion/education on assistive devices for ambulation. He led the group in an exercise read from a card and did UE exercises with yellow theraband. He walked back to his room with assistance and was left up in recliner, all needs met. Start Time: 13:00 Stop Time: 14:15 Total Billed Treatment Time: 75 Total Billed Treatment visit, 75 minutes group ADAM JACK OT Sep 30, 2016 14:46
[2016-09-30] MEDS: ALFUZOSIN HCL 10 MG TAB (UROXATRAL) PO SCH (17:15)
[2016-09-30 17:55] VITALS: BP 101/65
[2016-09-30] MEDS: ACETAMINOPHEN 325 MG TABLET/CAPLET (TYLENOL) PO PRN (20:37)
[2016-09-30] MEDS: ATORVASTATIN 80 MG (LIPITOR) TABLET PO SCH (20:38)
[2016-09-30] MEDS: traZODone 50 MG (DESYREL) TAB PO SCH (20:38)
[2016-09-30] MEDS: inSUlin DETERMIR 1 UNIT/0.01 ML (LEVEMIR) CHARGE PER UNIT SQ SCH (20:39)
[2016-10-01 05:00] VITALS: BP 91/52
[2016-10-01] MEDS: predniSONE 5 MG TAB PO SCH (05:49)
[2016-10-01] MEDS: PANTOPRAZOLE 40 MG (PROTONIX) TAB PO SCH ×2 (05:49→16:58)
[2016-10-01] MEDS: KCL 20 MEQ TAB (K-DUR) PO SCH (05:49)
[2016-10-01] MEDS: predniSONE 10 MG TAB PO SCH (05:49)
[2016-10-01] MEDS: inSUlin (REGULAR) HUMAN 1 UNIT/0.01 ML (CHARGE PER UNIT) SC SCH ×4 (06:17→21:32)
[2016-10-01] MEDS: RT-ALBUTEROL SULF 2.5 MG/3 ML PRE-MIX VIAL IH SCH ×4 (07:04→19:53)
[2016-10-01] MEDS: RT-ADVAIR HFA 115/21 MCG PER PUFF IH SCH ×2 (07:04→19:53)
[2016-10-01] MEDS: UMECLIDINIUM BROMIDE (INCRUSE ELLIPTA) 7'S IH SCH (07:05)
[2016-10-01 08:39] VITALS: BP 102/59
[2016-10-01] MEDS: guaiFENesin (MUCINEX) 600 MG TAB PO SCH ×2 (08:42→20:35)
[2016-10-01] MEDS: SPIRONOLACTONE 25 MG (ALDACTONE) TAB PO SCH (08:43)
[2016-10-01] MEDS: ASPIRIN E.C. 81 MG (ECOTRIN) TAB PO SCH (08:43)
[2016-10-01] MEDS: DIGOXIN 0.25 MG (LANOXIN) TAB PO SCH (08:43)
[2016-10-01] MEDS: MAGNESIUM OXIDE (MAG-OX)400 MG TAB PO SCH ×2 (08:43→17:32)
[2016-10-01] MEDS: meTOproloL SUCCINATE 50 MG (TOPROL XL) TAB PO SCH (08:43)
[2016-10-01] MEDS: FINASTERIDE (PROSCAR) 5 MG TAB PO SCH (08:43)
[2016-10-01] MEDS: FLUTICASONE NASAL SPRAY (FLONASE) 16 GM BTL NS SCH (08:44)
[2016-10-01] MEDS: DOCUSATE SODIUM 100 MG (COLACE) CAP PO SCH ×2 (08:44→20:35)
[2016-10-01] MEDS: MENTHOL/ZINC OXIDE (CALMOSEPTINE) 113 GM TUBE TOP SCH ×2 (08:45→20:37)
[2016-10-01] MEDS: DAKIN'S 1/4 STRENGTH (0.125%) 473 ML BTL TOP SCH ×2 (08:46→20:38)
[2016-10-01] MEDS: BUMETANIDE 1 MG (BUMEX) TAB PO SCH ×2 (08:52→17:32)
--- NOTE | 2016-10-01 11:44 | Physical Therapy Daily Note ---
PT Daily Note-Current Subjective Agrees to Rx. Feels he is stronger, "we better go up and down those steps" Pain Numeric Pain Scale: 0-No Pain Mental Status Patient Orientation: Normal For Age Attachments: Oxygen (2L) Transfers Functional [place] Measure 0=Not Assessed/NA 4=Minimal Assistance 1=Total Assistance 5=Supervision or Setup 2=Maximal Assistance 6=Modified [place] 3=Moderate Assistance 7=Complete IndependenceIRFPAI Quality Coding Scale 6 Independent with activity with or without an assistive device 5 Patient requires set up or clean up by helper. Patient completes activity by themselves 4 Supervision or touching assist (CGA). [place] provide cues , steadying assist 3 The helper provides less than half the effort to complete the activity 2 The helper provides more than half the effort to complete the activity 1 Dependent. The helper does all the effort to complete an activity 7 Patient refused to complete or attempt activity 9 The patient did not perform the activity before the current illness or injury 88 Not attempted due to Medical conditions or safety concerns Transfers (B, C, W/C) (FIM): 6 Scootin Rollin Supine to/from Sit: 6 Sit to/from Stand: 6 Gait Training Does the Patient Walk?: Yes Gait (FIM): 5 Distance (FIM): 3=150 ft (x2) Gait Level of Assist: 5 Gait Persons Needed: 1 Gait Assistive Device: FWW needs assist for O2 portable O2 for gait Stair Training Stair Training: Handrails/: uses walker Stairs (FIM): 2 #of Steps: 4 Stairs: Pattern: Step to Level of Assist: 4 much improved, better sequence, needs CGA Assessment Current Status: Good Progress PT Short Term Goals Short Term Goals Time Frame: Oct 01, 2016 Transfers (B,C,W/C) (FIM): 4 Gait (FIM): 2 Distance (FIM): 5=465-98 ft Gait Distance Comment: 50 Gait Level of Assist: 5 Gait Assistive Device: FWW Wheelchair Distance: 25' PT Alf Goals Reducing Machine Operator Goals PT Alf Goals Time Frame: Oct 15, 2016 Transfers (B,C,W/C) (FIM): 6 Sit to Lying (QC): 6 Lying-Sitting on Side/Bed(QC): 6 Sit to Stand (QC): 6 Rollin Roll Left to Right (QC): 6 Chair/Obq-ra-Jjlcm Xfer(QC): 6 Car Transfer (QC): 6 Does the Patient Walk: Yes Gait (FIM): 5 Gait distance (FIM): 4=034-22 ft Distance: 100 Walk 10 feet (QC): 6 Walk 10ft-Uneven Surface(QC): 6 Walk 50ft with 2 Turns (QC): 6 Walk 150 ft (QC): 9 Gait Level of Assist: 6 Gait Assistive Device: FWW Does the Pt use WC or Scooter?: No Stairs (FIM): 1 # of Steps: 1 1 Step (curb) (QC): 4 4 Steps (QC): 9 12 Steps (QC): 9 Stairs Level Of Assist: 4 Picking up an Object (QC): 6 PT Plan Treatment/Plan Treatment Plan: Continue Plan of Care Treatment Plan: Bed Mobility, Education, Functional Activity Raheem, Functional Strength, Group Therapy, Gait, Safety, Therapeutic Exercise, Transfers Treatment Duration: Oct 15, 2016 Frequency: At least 5-7 days/Wk (IRF) Estimated Hrs Per Day: 1.5 hours per day Patient and/or Family Agrees t: Yes Safety Risks/Education Patient Education: Gait Training, Transfer Techniques, Steps Teaching Recipient: Patient Teaching Methods: Demonstration, Discussion Response to Teaching: Verbalize Understanding, Return Demonstration, Reinforcement Needed Time/GCodes Time In: 745 Time Out: 805 Total Billed Treatment Time: 20 Total Billed Treatment 1,FA20m G Codes Necessary: MEE Silva PLANT OPERATOR/SHIFT SUPERVISOR Oct 01, 2016 11:44
[2016-10-01] MEDS: ALFUZOSIN HCL 10 MG TAB (UROXATRAL) PO SCH (17:32)
[2016-10-01 18:58] VITALS: BP 91/57
[2016-10-01] MEDS: ATORVASTATIN 80 MG (LIPITOR) TABLET PO SCH (20:35)
[2016-10-01] MEDS: inSUlin DETERMIR 1 UNIT/0.01 ML (LEVEMIR) CHARGE PER UNIT SQ SCH (20:36)
[2016-10-01] MEDS: traZODone 50 MG (DESYREL) TAB PO SCH (20:36)
[2016-10-02 05:26] VITALS: BP 94/57
[2016-10-02] MEDS: predniSONE 5 MG TAB PO SCH (06:10)
[2016-10-02] MEDS: predniSONE 10 MG TAB PO SCH (06:10)
[2016-10-02] MEDS: inSUlin (REGULAR) HUMAN 1 UNIT/0.01 ML (CHARGE PER UNIT) SC SCH ×4 (06:10→20:55)
[2016-10-02] MEDS: PANTOPRAZOLE 40 MG (PROTONIX) TAB PO SCH ×2 (06:10→16:25)
[2016-10-02] MEDS: KCL 20 MEQ TAB (K-DUR) PO SCH (06:10)
[2016-10-02] MEDS: RT-ADVAIR HFA 115/21 MCG PER PUFF IH SCH ×2 (07:32→20:24)
[2016-10-02] MEDS: RT-ALBUTEROL SULF 2.5 MG/3 ML PRE-MIX VIAL IH SCH ×3 (07:32→20:24)
[2016-10-02] MEDS: UMECLIDINIUM BROMIDE (INCRUSE ELLIPTA) 7'S IH SCH (07:34)
[2016-10-02 09:21] VITALS: BP 108/66
[2016-10-02] MEDS: BUMETANIDE 1 MG (BUMEX) TAB PO SCH ×2 (09:28→16:26)
[2016-10-02] MEDS: DIGOXIN 0.25 MG (LANOXIN) TAB PO SCH (09:28)
[2016-10-02] MEDS: DOCUSATE SODIUM 100 MG (COLACE) CAP PO SCH ×2 (09:29→20:53)
[2016-10-02] MEDS: SPIRONOLACTONE 25 MG (ALDACTONE) TAB PO SCH (09:29)
[2016-10-02] MEDS: ASPIRIN E.C. 81 MG (ECOTRIN) TAB PO SCH (09:29)
[2016-10-02] MEDS: meTOproloL SUCCINATE 50 MG (TOPROL XL) TAB PO SCH (09:29)
[2016-10-02] MEDS: guaiFENesin (MUCINEX) 600 MG TAB PO SCH ×2 (09:29→20:53)
[2016-10-02] MEDS: MAGNESIUM OXIDE (MAG-OX)400 MG TAB PO SCH ×2 (09:29→16:26)
[2016-10-02] MEDS: FINASTERIDE (PROSCAR) 5 MG TAB PO SCH (09:29)
[2016-10-02] MEDS: MENTHOL/ZINC OXIDE (CALMOSEPTINE) 113 GM TUBE TOP SCH ×2 (09:54→20:54)
[2016-10-02] MEDS: DAKIN'S 1/4 STRENGTH (0.125%) 473 ML BTL TOP SCH ×2 (09:54→20:53)
[2016-10-02] MEDS: FLUTICASONE NASAL SPRAY (FLONASE) 16 GM BTL NS SCH (09:55)
[2016-10-02] MEDS: ALFUZOSIN HCL 10 MG TAB (UROXATRAL) PO SCH (16:26)
[2016-10-02 18:00] VITALS: BP 92/60
[2016-10-02] MEDS: traZODone 50 MG (DESYREL) TAB PO SCH (20:52)
[2016-10-02] MEDS: ATORVASTATIN 80 MG (LIPITOR) TABLET PO SCH (20:53)
[2016-10-02] MEDS: inSUlin DETERMIR 1 UNIT/0.01 ML (LEVEMIR) CHARGE PER UNIT SQ SCH (20:56)
[2016-10-03 04:19] VITALS: BP 103/62
[2016-10-03] MEDS: inSUlin (REGULAR) HUMAN 1 UNIT/0.01 ML (CHARGE PER UNIT) SC SCH ×4 (06:04→21:24)
[2016-10-03] MEDS: predniSONE 10 MG TAB PO SCH (06:04)
[2016-10-03] MEDS: predniSONE 5 MG TAB PO SCH (06:04)
[2016-10-03] MEDS: KCL 20 MEQ TAB (K-DUR) PO SCH (06:04)
[2016-10-03] MEDS: PANTOPRAZOLE 40 MG (PROTONIX) TAB PO SCH ×2 (06:04→16:28)
[2016-10-03] MEDS: RT-ALBUTEROL SULF 2.5 MG/3 ML PRE-MIX VIAL IH SCH ×3 (09:39→20:01)
[2016-10-03] MEDS: RT-ADVAIR HFA 115/21 MCG PER PUFF IH SCH ×2 (09:39→20:02)
[2016-10-03] MEDS: UMECLIDINIUM BROMIDE (INCRUSE ELLIPTA) 7'S IH SCH (09:48)
[2016-10-03] MEDS: guaiFENesin (MUCINEX) 600 MG TAB PO SCH ×2 (10:23→21:23)
[2016-10-03] MEDS: BUMETANIDE 1 MG (BUMEX) TAB PO SCH ×2 (10:23→18:03)
[2016-10-03] MEDS: MAGNESIUM OXIDE (MAG-OX)400 MG TAB PO SCH ×2 (10:23→18:03)
[2016-10-03] MEDS: FINASTERIDE (PROSCAR) 5 MG TAB PO SCH (10:24)
[2016-10-03] MEDS: DOCUSATE SODIUM 100 MG (COLACE) CAP PO SCH ×2 (10:25→21:23)
[2016-10-03] MEDS: ASPIRIN E.C. 81 MG (ECOTRIN) TAB PO SCH (10:25)
[2016-10-03] MEDS: SPIRONOLACTONE 25 MG (ALDACTONE) TAB PO SCH (10:26)
[2016-10-03] MEDS: DIGOXIN 0.25 MG (LANOXIN) TAB PO SCH (10:26)
[2016-10-03] MEDS: meTOproloL SUCCINATE 50 MG (TOPROL XL) TAB PO SCH (10:26)
--- NOTE | 2016-10-03 10:27 | Physical Therapy Daily Note ---
PT Daily Note-Current Subjective Pt. agrees to Rx and feels he has made big improvements. Pain Numeric Pain Scale: 0-No Pain Mental Status Patient Orientation: Normal For Age no O2 this date, states he has titrated off last yesterday afternoon Transfers Functional [place] Measure 0=Not Assessed/NA 4=Minimal Assistance 1=Total Assistance 5=Supervision or Setup 2=Maximal Assistance 6=Modified [place] 3=Moderate Assistance 7=Complete IndependenceIRFPAI Quality Coding Scale 6 Independent with activity with or without an assistive device 5 Patient requires set up or clean up by helper. Patient completes activity by themselves 4 Supervision or touching assist (CGA). [place] provide cues , steadying assist 3 The helper provides less than half the effort to complete the activity 2 The helper provides more than half the effort to complete the activity 1 Dependent. The helper does all the effort to complete an activity 7 Patient refused to complete or attempt activity 9 The patient did not perform the activity before the current illness or injury 88 Not attempted due to Medical conditions or safety concerns Transfers (B, C, W/C) (FIM): 6 Scootin Rollin Roll Left to Right (QC): 6 Supine to/from Sit: 6 Sit to/from Stand: 6 Sit to Lying (QC): 6 Sit to Stand (QC): 6 Chair/Wff-qu-Ejxmt Xfer(QC): 6 Bed to/from Chair: 6 Gait Training Does the Patient Walk?: Yes Gait (FIM): 6 Distance (FIM): 3=150 ft (x2) Walk 10 feet (QC): 6 Walk 50 ft with 2 Turns(QC): 6 Walk 150 ft (QC): 6 Walking 10ft/uneven surface-QC: 6 Gait Level of Assist: 6 Gait Persons Needed: 0 Gait Assistive Device: FWW Stair Training Stair Training: Handrails/: 2 handrails Stairs (FIM): 5 #of Steps: 4 1 Step (curb) (QC): 5 4 Steps (QC): 5 Stairs: Pattern: Step to Level of Assist: 5 Exercises Supine Ex: Bridging, Ankle pumps, Quad Set, Rolling, Short Arc Quads, Scooting , Straight leg raise, Hip abd/add Supine Reps: 12 Seated Therapy Exercises: Ankle pumps, Sit to stand, Long arc quads, Hip flexion Seated Reps: 15 Assessment Current Status: Good Progress meets goals PT Short Term Goals Short Term Goals Time Frame: Oct 01, 2016 Transfers (B,C,W/C) (FIM): 4 Gait (FIM): 2 Distance (FIM): 0=324-09 ft Gait Distance Comment: 50 Gait Level of Assist: 5 Gait Assistive Device: FWW Wheelchair Distance: 25' PT Correction Goals Correction Goals PT Civil Engineer Goals Time Frame: Oct 15, 2016 Transfers (B,C,W/C) (FIM): 6 Sit to Lying (QC): 6 Lying-Sitting on Side/Bed(QC): 6 Sit to Stand (QC): 6 Rollin Roll Left to Right (QC): 6 Chair/Lif-cb-Kfahn Xfer(QC): 6 Car Transfer (QC): 6 Does the Patient Walk: Yes Gait (FIM): 5 Gait distance (FIM): 3=754-39 ft Distance: 100 Walk 10 feet (QC): 6 Walk 10ft-Uneven Surface(QC): 6 Walk 50ft with 2 Turns (QC): 6 Walk 150 ft (QC): 9 Gait Level of Assist: 6 Gait Assistive Device: FWW Does the Pt use WC or Scooter?: No Stairs (FIM): 1 # of Steps: 1 1 Step (curb) (QC): 4 4 Steps (QC): 9 12 Steps (QC): 9 Stairs Level Of Assist: 4 Picking up an Object (QC): 6 PT Plan Treatment/Plan Treatment Plan: Continue Plan of Care Treatment Plan: Bed Mobility, Education, Functional Activity Raheem, Functional Strength, Group Therapy, Gait, Safety, Therapeutic Exercise, Transfers Treatment Duration: Oct 15, 2016 Frequency: At least 5-7 days/Wk (IRF) Estimated Hrs Per Day: 1.5 hours per day Patient and/or Family Agrees t: Yes Safety Risks/Education Patient Education: Gait Training, Transfer Techniques, Steps, Correct Positioning, Disease Process, Safety Issues Teaching Recipient: Patient Teaching Methods: Demonstration, Discussion Response to Teaching: Verbalize Understanding, Return Demonstration Time/GCodes Time In: 930 Time Out: 1030 Total Billed Treatment Time: 60 Total Billed Treatment 1,GT30m,FA15m,EX15m G Codes Necessary: No MEE MALDONADO DIRECTOR OF INTEGRATED MARKETING Oct 03, 2016 10:27
[2016-10-03] MEDS: DAKIN'S 1/4 STRENGTH (0.125%) 473 ML BTL TOP SCH ×2 (10:28→21:24)
[2016-10-03] MEDS: FLUTICASONE NASAL SPRAY (FLONASE) 16 GM BTL NS SCH (10:29)
[2016-10-03] MEDS: MENTHOL/ZINC OXIDE (CALMOSEPTINE) 113 GM TUBE TOP SCH ×2 (10:29→21:25)
--- NOTE | 2016-10-03 11:57 | Occupational Ther Daily Note ---
OT Current Status-Daily Note Subjective Pt sitting in chair, agrees to treatment. No c/o pain. Mental Status/Objective Functional [place] Measure 0=Not Assessed/NA 4=Minimal Assistance 1=Total Assistance 5=Supervision or Setup 2=Maximal Assistance 6=Modified [place] 3=Moderate Assistance 7=Complete [place] ADL-Treatment Pt sit to stand with modified independence. Gait to restroom with FWW, no LOB noted. Pt doffed clothing without assistance. Transfer to walk in shower with modified independence using grab bars. Pt able to wash/dry all areas with modified independence. Occasional rest breaks taken secondary to fatigue. Pt has already retrieved clothing this morning prior to therapist's arrival. Pt donned shirt with modified independence. Donned shorts with modified independence using FWW for balance during standing for pant hike. Don socks with modified independence using sock aid. Pt states he has used swab for oral care without assistance. Declined to shave, states he completed task yesterday. Pt demonstrated ability to perform toilet transfer with modified independence. Pt states he has been completing toileting hygiene and clothing management without assistance. Pt returned to chair, sitting with needs met after session. Functional [place] Measure 0=Not Assessed/NA 4=Minimal Assistance 1=Total Assistance 5=Supervision or Setup 2=Maximal Assistance 6=Modified [place] 3=Moderate Assistance 7=Complete IndependenceIRFPAI Quality Coding Scale 6 Independent with activity with or without an assistive device 5 Patient requires set up or clean up by helper. Patient completes activity by themselves 4 Supervision or touching assist (CGA). [place] provide cues , steadying assist 3 The helper provides less than half the effort to complete the activity 2 The helper provides more than half the effort to complete the activity 1 Dependent. The helper does all the effort to complete an activity 7 Patient refused to complete or attempt activity 9 The patient did not perform the activity before the current illness or injury 88 Not attempted due to Medical conditions or safety concerns Eating (FIM): 6 (Pt report feeding self, opening containers, and cutting food without assistance.) Eating (QC): 6 Grooming (FIM): 6 (Pt reports completing grooming tasks without assistance.) Oral Hygiene (QC): 6 Bathing (FIM): 6 Shower/Bathe Self (QC): 6 Upper Body (FIM): 6 Upper Body Dressing (QC): 6 Lower Body Dressing (FIM): 6 Lower Body Dressing (QC): 6 On/Off Footwear (QC): 6 Toileting (FIM): 6 (Pt reports completing clothing management and hygiene without assistance.) Toileting Hygiene (QC): 6 Toilet/Commode Transfer (FIM): 6 Toilet Transfer (QC): 6 Shower Transfer(FIM): 6 OT Short Term Goals Short Term Goals Time Frame: Sep 30, 2016 Grooming(FIM): 5 Toileting(FIM): 4 Transfers (B,C,W/C) (FIM): 4 Toilet/Commode Transfer(FIM): 5 Additional Short Term Goals: 2-Verbalize Understanding, 3-ImproveStrength/Raheem 1=Demonstrate adherence to instructed precautions during ADL tasks. 2=Patient will verbalize/demonstrate understanding of assistive devices/ modifications for ADL. 3=Patient will improve strength/tolerance for activity to enable patient to perform ADL's. OT Senior Care Goals Credit Administrator Goals Time Frame: Oct 14, 2016 Eating (FIM): 6 (met 10/03/16) Eating (QC): 6 (6-MET) Groomin (met 09/23/16) Oral Hygiene (QC): 6 (6-MET) Bathing(FIM): 6 (met 10/03/16) Shower/Bathe Self (QC): 6 (6-MET) Upper Body Dressing(FIM): 6 (met 10/03/16) Upper Body Dressing (QC): 6 (6-MET) Lower Body Dressing(FIM): 6 (met 10/03/16) Lower Body Dressing (QC): 6 (6-MET) On/Off Footwear (QC): 6 (6-MET) Toileting(FIM): 6 (met 10/03/16) Toileting Hygiene (QC): 6 (6-MET) Transfers (B,C,W/C) (FIM): 6 Toilet/Commode Transfer(FIM): 6 (met 10/03/16) Toilet/Commode Transfer (QC): 6 (6-MET) Shower Transfer(FIM): 6 (met 10/03/16) Additional Goals: 2-Verbalize Understanding, 3-ImproveStrength/Raheem 1=Demonstrate adherence to instructed precautions during ADL tasks. 2=Patient will verbalize/demonstrate understanding of assistive devices/ modifications for ADL. 3=Patient will improve strength/tolerance for activity to enable patient to perform ADL's. OT Education/Plan Problem List/Assessment Pt would benefit from skilled OT to increase his independence in basic ADLs to allow him to safely return to his home at [place] and decrease caregiver burden Discharge Recommendations Plan/Recommendations: Continue POC Treatment Plan/Plan of Care Patient would benefit from OT for education, treatment and training to promote independence in ADL's, mobility, safety and/or upper extremity function for ADL' s. Plan of Care: ADL Retraining, Functional Mobility, Group Exercise/Act as Ind ( education, exercise, activity tolerance, functional activities, socialization), UE Funct Exercise/Act, UE Neuromus Re-Ed/Coord Treatment Duration: Oct 14, 2016 Frequency: Twice Daily (M-F, PRN weekends) Estimated Hrs Per Day: 1.5 hours per day (M-F, PRN weekends) Agreement: Yes Rehab Potential: Fair Time/GCodes Start Time: 08:00 Stop Time: 09:00 Total Time Billed (hr/min): 60 Billed Treatment Time 1 visit, ADLx4(60minutes) NONA SEO OT Oct 03, 2016 11:57
--- NOTE | 2016-10-03 14:58 | Therapy Group Daily Note ---
Therapy Daily Group Note Patient Education Topic Fall Prevention Exercises LE Seated Exercise, Other Other/Notes Pt was an active participant in OT/PT group. He walked by himself to group, using FWW and introduced himself to the group by sharing his favorite vacation spot. He did seated LE exercises and participated in group education/discussion on fall prevention. He did a memory activity with the group and was successful in recalling items on board. He was able to tolerate the increased activity time in preparation for discharge planning. Pt took himself back to his room, all needs met. Start Time: 12:45 Stop Time: 14:00 Total Billed Treatment Time: 75 Total Billed Treatment visit, 75 minutes group ADAM JACK OT Oct 03, 2016 14:58
[2016-10-03 17:58] VITALS: BP 116/69
[2016-10-03] MEDS: ALFUZOSIN HCL 10 MG TAB (UROXATRAL) PO SCH (18:03)
--- NOTE | 2016-10-03 20:51 | PM & R (SOAP) Progress Note ---
Subjective Time Seen by Provider: 07:50 Subjective/Events-last exam Patient was seen in his room this AM Patient Modified Independent for transfers Patient weaned from 02 at this point Objective Exam Last Set of Vital Signs Vital Signs Date Time Temp Pulse Resp B/P (MAP) Pulse Ox O2 Delivery O2 Flow Rate FiO2 10/03/16 20:02 94 Room Air 10/03/16 17:58 98.3 80 16 116/69 10/02/16 18:00 0.00 Capillary Refill : I&O Intake and Output 10/03/16 00:00 Intake Total 2500 ml Output Total 3800 ml Balance -1300 ml Intake Oral 2500 ml Output Urine Total 3800 ml # Bowel Movements 2 General: Alert, No Acute Distress HEENT: Atraumatic, PERRLA Neck: Supple, No JVD Lungs: Normal Air Movement Heart: Other (irregular rate) Abdomen: Normal Bowel Sounds, Soft, No Tenderness Extremities: Other (trace edema) Skin: Other (Left medial thigh, upper -- 4.2 x 2.1 x 0.6 cm, 50% granulation, 50% slough; L medial thigh, lower. -- 2.7 x 0.6 x 0.2 cm, 100% slough.much improved today) Neuro: Other ( resting tremors in hands iontermittent and generalized weakness) Results Lab Laboratory Tests 09/30/16 21:19: Glucometer 117H 10/01/16 05:53: Glucometer 99 10/01/16 11:25: Glucometer 148H 10/01/16 16:48: Glucometer 145H 10/01/16 21:29: Glucometer 163H 10/02/16 05:14: Glucometer 115H 10/02/16 16:48: Glucometer 147H 10/02/16 20:55: Glucometer 185H 10/03/16 06:03: Glucometer 115H 10/03/16 11:01: Glucometer 218H 10/03/16 16:08: Glucometer 117H 10/03/16 20:24: Glucometer 134H Assessment/Plan Assessment S/P AVR and CaBG OSH Resp insufficiency 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 Elevated LFTS Postop AFIB controlled with meds wound left thigh much improved Resting tremor multifactorila most likeley -Prednisone being tapered and Lasix decreased and Mogox ordered Hypotension improved with decrease in lasix Plan Continue PT/OT F/U with DR Holbrook/Hospitalist service and Jun as per their scehdule Wound care addressed -See orders-improved Check Labs as per above-done Checked CXR Rechecked Labs-noted MOnitored Blood pressure and tremors and adjust meds as needed Improved Discharge set for tomorrow back to [facility] in [place] F/U with PCP DR Barba and Cardiac surgeon on an outpatient basis upon discharge NEGRITO THOMPSON MD Oct 03, 2016 20:51
[2016-10-03] MEDS: ATORVASTATIN 80 MG (LIPITOR) TABLET PO SCH (21:23)
[2016-10-03] MEDS: traZODone 50 MG (DESYREL) TAB PO SCH (21:23)
[2016-10-03] MEDS: inSUlin DETERMIR 1 UNIT/0.01 ML (LEVEMIR) CHARGE PER UNIT SQ SCH (21:24)
[2016-10-04 05:19] VITALS: BP 118/75
[2016-10-04] MEDS: inSUlin (REGULAR) HUMAN 1 UNIT/0.01 ML (CHARGE PER UNIT) SC SCH (05:46)
[2016-10-04] MEDS: predniSONE 10 MG TAB PO SCH (06:23)
[2016-10-04] MEDS: PANTOPRAZOLE 40 MG (PROTONIX) TAB PO SCH (06:23)
[2016-10-04] MEDS: KCL 20 MEQ TAB (K-DUR) PO SCH (06:23)
[2016-10-04] MEDS: predniSONE 5 MG TAB PO SCH (06:23)
[2016-10-04] MEDS: RT-ALBUTEROL SULF 2.5 MG/3 ML PRE-MIX VIAL IH SCH (07:33)
[2016-10-04] MEDS: UMECLIDINIUM BROMIDE (INCRUSE ELLIPTA) 7'S IH SCH (07:33)
[2016-10-04] MEDS: RT-ADVAIR HFA 115/21 MCG PER PUFF IH SCH (07:33)
--- NOTE | 2016-10-04 08:03 | PM & R (SOAP) Progress Note ---
Subjective Time Seen by Provider: 07:45 Subjective/Events-last exam Patient was seen in his room this AM Has progressed well Discussed case with RN Objective Exam Last Set of Vital Signs Vital Signs Date Time Temp Pulse Resp B/P (MAP) Pulse Ox O2 Delivery O2 Flow Rate FiO2 10/04/16 07:34 94 Room Air 10/04/16 05:19 98.6 85 16 118/75 10/02/16 18:00 0.00 Capillary Refill : I&O Intake and Output 10/04/16 00:00 Intake Total 1330 ml Output Total 2475 ml Balance -1145 ml Intake Oral 1330 ml Output Urine Total 2475 ml # Voids 1 # Bowel Movements 6 General: Alert, No Acute Distress HEENT: Atraumatic, PERRLA Neck: Supple, No JVD Lungs: Normal Air Movement Heart: Other (irregular rate) Abdomen: Normal Bowel Sounds, Soft, No Tenderness Extremities: Other (trace edema) Skin: Other (Left medial thigh, upper -- 4.2 x 2.1 x 0.6 cm, 50% granulation, 50% slough; L medial thigh, lower. -- 2.7 x 0.6 x 0.2 cm, 100% slough.much improved today) Neuro: Other ( resting tremors in hands iontermittent and generalized weakness) Results Lab Laboratory Tests 10/01/16 11:25: Glucometer 148H 10/01/16 16:48: Glucometer 145H 10/01/16 21:29: Glucometer 163H 10/02/16 05:14: Glucometer 115H 10/02/16 16:48: Glucometer 147H 10/02/16 20:55: Glucometer 185H 10/03/16 06:03: Glucometer 115H 10/03/16 11:01: Glucometer 218H 10/03/16 16:08: Glucometer 117H 10/03/16 20:24: Glucometer 134H 10/04/16 05:33: Glucometer 102 Assessment/Plan Assessment S/P AVR and CaBG OSH Resp insufficiency 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 Elevated LFTS Postop AFIB controlled with meds wound left thigh much improved Resting tremor multifactorila most likeley -Prednisone being tapered and Lasix decreased and Mogox ordered Hypotension improved with decrease in lasix Plan Discharge today back to [facility] F/U with PCP DR Barba and Cardiac Surgeon See orders. NEGRITO THOMPSON MD Oct 04, 2016 08:03
[2016-10-04] MEDS ORDERED: BUME1TAB4 PO (08:18)
[2016-10-04] MEDS ORDERED: SPIR25TA3 PO (08:18)
[2016-10-04] MEDS ORDERED: PRED5TAB PO (08:18)
[2016-10-04] MEDS ORDERED: MENT71OI TOP (08:18)
[2016-10-04] MEDS: meTOproloL SUCCINATE 50 MG (TOPROL XL) TAB PO SCH (08:27)
[2016-10-04] MEDS: FINASTERIDE (PROSCAR) 5 MG TAB PO SCH (08:27)
[2016-10-04] MEDS: guaiFENesin (MUCINEX) 600 MG TAB PO SCH (08:27)
[2016-10-04] MEDS: ASPIRIN E.C. 81 MG (ECOTRIN) TAB PO SCH (08:27)
[2016-10-04] MEDS: DIGOXIN 0.25 MG (LANOXIN) TAB PO SCH (08:27)
[2016-10-04] MEDS: SPIRONOLACTONE 25 MG (ALDACTONE) TAB PO SCH (08:27)
[2016-10-04] MEDS: DOCUSATE SODIUM 100 MG (COLACE) CAP PO SCH (08:29)
[2016-10-04] MEDS: FLUTICASONE NASAL SPRAY (FLONASE) 16 GM BTL NS SCH (08:31)
[2016-10-04] MEDS: MAGNESIUM OXIDE (MAG-OX)400 MG TAB PO SCH (08:31)
[2016-10-04] MEDS: DAKIN'S 1/4 STRENGTH (0.125%) 473 ML BTL TOP SCH (08:32)
[2016-10-04] MEDS: MENTHOL/ZINC OXIDE (CALMOSEPTINE) 113 GM TUBE TOP SCH (08:32)
[2016-10-04 11:39] VITALS: BP 118/75
--- NOTE | 2016-10-04 11:41 | Therapy Team Discharge Summary ---
Therapy Discharge Summary Discharge Recommendations Date of Discharge Therapy D/C Recommendations: Assisted Living Physical Therapy Patient came to rehab following a CABG. Upon evaluation patient performed bed mobility with mod assist and transfers with min assist, ambulated 20' with a rolling walker with min/CGA, no stairs at this time. Patient has been performing bed mobility and transfer training, balance and endurance training, functional strengthening, stair training, gait training, and education. Patient has made good progress and has met all of his snf goals. Now, patient performs bed mobility and transfers with mod I, ambulates 150' with a rolling walker with mod I (including 50' with at least 2 turns of 90 degrees and 10' over an uneven surface), and can go up and down 4 steps using 2 handrails with SBA. Patient is being discharged from this facility today and will be discharged from PT at this time. PT Shoe Salesman Goals Assisted Goals PT Shoe Salesman Goals Time Frame: Oct 15, 2016 Transfers (B,C,W/C) (FIM): 6 Roll Left to Right (QC): 6 Sit to Lying (QC): 6 Lying-Sitting on Side/Bed(QC): 6 Sit to Stand (QC): 6 Chair/Fxn-bg-Xygey Xfer(QC): 6 Car Transfer (QC): 6 Does the Patient Walk: Yes Gait (FIM): 5 Gait distance (FIM): 5=416-42 ft Distance: 100 Walk 10 feet (QC): 6 Walk 10ft-Uneven Surface(QC): 6 Walk 50ft with 2 Turns (QC): 6 Walk 150 ft (QC): 9 Gait Level of Assist: 6 Gait Assistive Device: FWW Does the Pt use WC or Scooter?: No Stairs (FIM): 1 # of Steps: 1 1 Step (curb) (QC): 4 4 Steps (QC): 9 12 Steps (QC): 9 Stairs Level Of Assist: 4 Picking up an Object (QC): 6 OT Shoe Salesman Goals Assisted Goals Time Frame: Oct 14, 2016 Eating (FIM): 6 Eating (QC): 6 Oral Hygiene (QC): 6 Grooming(FIM): 6 Bathing(FIM): 6 Shower/Bathe Self (QC): 6 Upper Body Dressing(FIM): 6 Upper Body Dressing (QC): 6 Lower Body Dressing(FIM): 6 Lower Body Dressing (QC): 6 On/Off Footwear (QC): 6 Toileting(FIM): 6 Toileting Hygiene (QC): 6 Transfers (B,C,W/C) (FIM): 6 Toilet/Commode Transfer(FIM): 6 Toilet/Commode Transfer (QC): 6 Shower Transfer(FIM): 6 Additional Goals: 2-Verbalize Understanding, 3-ImproveStrength/Raheem 1=Demonstrate adherence to instructed precautions during ADL tasks. 2=Patient will verbalize/demonstrate understanding of assistive devices/ modifications for ADL. 3=Patient will improve strength/tolerance for activity to enable patient to perform ADL's. ELIANE BRANDT PT Oct 04, 2016 11:41
--- NOTE | 2016-10-04 13:04 | Therapy Team Discharge Summary ---
Therapy Discharge Summary Discharge Recommendations Date of Discharge Oct 04, 2016 at 09:40 Therapy D/C Recommendations: Assisted Living Occupational Therapy Pt admitted to ARU following CABG. On admission pt required minimal assistance with transfers and UE dressing, moderate assistance with bathing, and max assist with LE dressing. Skilled OT intervention focused on ADL training, transfers, strengthening, and safety education. Pt made good progress with therapy and by discharge is completing ADLs and transfers with modified independence. Pt met all OT LTG. Pt discharged back to [facility] this date. D/C ARU OT at this time. PT Spa Concierge Goals Usp Goals PT Spa Concierge Goals Time Frame: Oct 15, 2016 Transfers (B,C,W/C) (FIM): 6 Roll Left to Right (QC): 6 Sit to Lying (QC): 6 Lying-Sitting on Side/Bed(QC): 6 Sit to Stand (QC): 6 Chair/Tdz-zd-Qruxb Xfer(QC): 6 Car Transfer (QC): 6 Does the Patient Walk: Yes Gait (FIM): 5 Gait distance (FIM): 9=612-60 ft Distance: 100 Walk 10 feet (QC): 6 Walk 10ft-Uneven Surface(QC): 6 Walk 50ft with 2 Turns (QC): 6 Walk 150 ft (QC): 9 Gait Level of Assist: 6 Gait Assistive Device: FWW Does the Pt use WC or Scooter?: No Stairs (FIM): 1 # of Steps: 1 1 Step (curb) (QC): 4 4 Steps (QC): 9 12 Steps (QC): 9 Stairs Level Of Assist: 4 Picking up an Object (QC): 6 OT Usp Goals Usp Goals Time Frame: Oct 14, 2016 Eating (FIM): 6 Eating (QC): 6 Oral Hygiene (QC): 6 Grooming(FIM): 6 Bathing(FIM): 6 Shower/Bathe Self (QC): 6 Upper Body Dressing(FIM): 6 Upper Body Dressing (QC): 6 Lower Body Dressing(FIM): 6 Lower Body Dressing (QC): 6 On/Off Footwear (QC): 6 Toileting(FIM): 6 Toileting Hygiene (QC): 6 Transfers (B,C,W/C) (FIM): 6 Toilet/Commode Transfer(FIM): 6 Toilet/Commode Transfer (QC): 6 Shower Transfer(FIM): 6 Additional Goals: 2-Verbalize Understanding, 3-ImproveStrength/Raheem 1=Demonstrate adherence to instructed precautions during ADL tasks. 2=Patient will verbalize/demonstrate understanding of assistive devices/ modifications for ADL. 3=Patient will improve strength/tolerance for activity to enable patient to perform ADL's. NONA SEO OT Oct 04, 2016 13:04
--- NOTE | 2016-10-19 08:33 | DISCHARGE SUMMARY ---
DATEOF ADMISSION: 09/16/2016 DATE OF DISCHARGE: 10/04/2016 HISTORY OF PRESENT ILLNESS: The patient is a 76-year-old male who was admitted to [facility] on 08/10/2016 for CABG x1 with left endovascular harvest and aortic valve replacement tissue, mitral valve repair CryoMaz procedure with Dr. Zafar. The patient had various medical complications postoperatively. He had difficulty with bleeding, had volume overload. This was treated. He was in atrial fibrillation. Medications were adjusted. He had postoperative anemia and had transfusion of packed red blood cells. He did have a thrombocytopenia with platelets of 41,000. On postoperative day 31, this was monitored, was felt to be possibly related to IV antibiotics and they were discontinued. The patient is now referred to Inpatient Rehabilitation Unit at [facility] for ongoing therapies. He lives in [place] and is a recent . He resides at an assisted living facility. He had largely been independent prior to this. His PCP is Dr. Barba. He has been seen by Dr. Espinosa of cardiology in the past. PAST MEDICAL HISTORY: 1. Coronary artery disease. 2. Partial left nephrectomy for cancer. 3. Rheumatoid arthritis on sulfasalazine followed by a supervisor hard candy at [facility] clinic. 4. He has only been on insulin recently because of hyperglycemia, associated with prednisone which has only been since his most recent illness. MEDICAL COURSE: The patient was followed by Dr. Wu and hospitalist service as well as cardiology. Glucometer readings were monitored. He was placed on steroid taper and did well. He was seen by Dr. Baum regarding wound care for his vein graft site and this was healing well upon discharge. He had a chest x-ray on 09/23 which showed cardiomegaly and mild opacities in the medial upper left and lateral lower right lung zones and this improved with respiratory treatments. He continued on insulin while on rehab unit and this was tapered and discontinue upon discharge. He continued on the spironolactone Lipitor, KCL, Toprol, Flonase, Proscar, digoxin, aspirin, Bumex, Protonix, Tylenol diuretics were tapered. He had an episode of hypotension but blood pressure stabilized upon discharge. He was afebrile during his stay. Blood pressure is 118/75 on 10/04, respirations 16, pulse 85. O2 sat 96% on room air. Blood pressure was 92/60 on 10/02. This responded to adjustment of medications. He was on small amounts of O2 by nasal cannula upon admission to rehab and he was weaned from O2. CBC on 09/27 showed improved H\T\H 12/16 from 11/12 on 09/17. WBC several 09/27 was 9.7, platelet count, improved from 57 on 09/17 to 140 on 09/27. Glucometer readings from 10/03 to 10/04 varied between 102 and 218. Chemistry on 09/27 showed serum potassium 3.5, chloride 94. He was provided with replacement BUN was 29, total bilirubin 1.4, total protein 6.1, albumin 4.0. The patient's hemoglobin A1c was 5.1 on 09/22. REHABILITATION COURSE: He was assessed by speech therapy and found to be cognitively intact, they signed off PT notes upon admission, the patient performed bed mobility with mod assist, and transfers with min assist, could ambulate 20 feet with a wheeled walker with min assist to contact guard. The patient made good progress and upon discharge. The patient is modified independent with bed mobility, and transfers, and is modified independent to ambulation 150 feet with a wheeled walker. The patient has had increased strength and endurance and could go up and down 4 steps using 2 handrails with standby assist. OT notes upon admission, the patient required min assist for transfers, and upper body dressing. Mod assist for bathing. Max assist for lower body dressing. Upon discharge the patient made good progress and was completing ADLs and transfers with modified independence/ He will be discharged back to his assisted living facility. DISCHARGE INSTRUCTIONS: Continue current diet. Follow-up with home health, PT, nursing through assisted living facility for ongoing wound care. Follow-up with Dr. Zafar cardiothoracic surgery and Dr. Barba PCP. DISCHARGE MEDICATIONS: 1. Bumex 2 mg p.o. b.i.d. 2. Calmoseptine ointment topically b.i.d. to affected area. 3. Prednisone 5 mg p.o. daily. 4. Spironolactone 25 mg p.o. daily. 5. Tylenol 650 mg p.o. q.4 hours p.r.n. pain or mild pain or fever. 6. ProAir HFA 2 puffs q.6 hours p.r.n. dyspnea. 7. Alendronate 70 mg p.o. q Monday. 8. Vitamin C 500 mg p.o. daily. 9. ASA 81 mg p.o. daily. 10. Lipitor 80 mg p.o. at bedtime. 11. Dulcolax 5 to 10 mg p.o. daily p.r.n. constipation. 12. Symbicort 2 puffs b.i.d. 13. Calcium carbonate with vitamin D3 1 tablet p.o. b.i.d. 14. Vitamin D3 1000 units p.o. at bedtime. 15. Digoxin 250 mcg p.o. daily. 16. Colace 100 mg p.o. b.i.d. 17. Proscar 5 mg p.o. at bedtime. 18. Flonase one spray nasally b.i.d. 19. Guaifenesin 1200 mg p.o. b.i.d. 20. Loratadine 10 mg p.o. daily. 21. Toprol-XL 150 mg p.o. daily. 22. Multivitamins with minerals 1 tablet p.o. daily. 23. Fish oil 2000 mg p.o. daily. 24. Protonix 40 mg p.o. b.i.d. 25. KCL 20 mEq p.o. daily. 26. Sulfasalazine 1500 mg p.o. b.i.d. 27. Tacrolimus 1 mg p.o. daily. 28. Flomax 0.4 mg p.o. at bedtime. 29. Spiriva 2 puffs daily. 30. Trazodone 75 mg p.o. at bedtime. 31. Coenzyme Q 1 capsule p.o. daily. 32. Vitamin B complex 1 capsule p.o. daily. DISCHARGE DIAGNOSES: 1. Rehabilitation ambulatory dysfunction secondary to coronary artery disease, and valvular heart disease, status post CABG x1 with left endovascular harvest and aortic valve replacement. CryoMaze procedure on 08/10/2016 with left saphenous vein graft site harvest, Dr. Zafar. 2. Postoperative anemia status post transfusion. 3. Thrombocytopenia felt to be due to antibiotics, improving. 4. Respiratory insufficiency, O2 dependent, weaned. 5. Hypokalemia replaced. 6. Hypoglycemia felt to be due to steroids and improved with steroid taper. 7. Elevated liver function tests improved 8. Atrial fibrillation, status post CryoMaze. 9. Significant peripheral edema, improved with diuresis. 10. Episode of hypotension felt to be due to diuresis, improved with adjustment of medications. 11. Rheumatoid arthritis on sulfasalazine. CONDITION AT DISCHARGE: Improved and stable. PROGNOSIS: Rehab prognosis appears good for some continued improvement at home and back at assisted living facility return to independent living with some assistance from nursing staff there as needed. Job ID: [id number] Dictated Date: 10/18/2016 08:40:57 Campus Interviews Intern Date: 10/19/2016 08:02:21/dm
== END 2016-10-04 09:40 | DRG 950 ==
LOC: ENPENDDIS 10-04 09:30
PROVIDERS: ADMIT Physical Medicine & Rehabilitation; ATTEND Physical Medicine & Rehabilitation
DX: Z48.812 Encounter for surgical aftercare following surgery on the circulatory system (principal); I25.10 Atherosclerotic heart disease of native coronary artery without angina pectoris; Z95.2 Presence of prosthetic heart valve; Z95.1 Presence of aortocoronary bypass graft; I48.91 Unspecified atrial fibrillation; E11.65 Type 2 diabetes mellitus with hyperglycemia; T81.9XXA Unspecified complication of procedure, initial encounter; D63.8 Anemia in other chronic diseases classified elsewhere; M06.9 Rheumatoid arthritis, unspecified; D69.6 Thrombocytopenia, unspecified; D50.0 Iron deficiency anemia secondary to blood loss (chronic); R06.89 Other abnormalities of breathing; E87.6 Hypokalemia; I10 Essential (primary) hypertension; E78.5 Hyperlipidemia, unspecified; Z99.81 Dependence on supplemental oxygen; Z87.891 Personal history of nicotine dependence
CPT/HCPCS: 36415; 71020; 80053; 82962; 83036; 84484; 85025; 93005; 94010; 94640; 94664; 94760

== ENCOUNTER → 2016-12-19 | Outpatient (CLI) | payer OTHER ==
[~2016-12-19] MED LIST changes: +BISA-65 PO; +BMT.25V4 IV; +BUME1TAB4 PO; +CHOL10007 PO; +DIGO250T PO; +GUAI120016 PO; +INSU100I29 SQ; +INSU100V5 SQ; +MENT71OI TOP; +METO-272 PO; +METO-352 PO; -METO-370 PO; +PAMI30VI8 SQ; +PANT40TA2 PO; +POTA-53 PO; +PRED5TAB PO; +SPIR25TA3 PO; +TIOT4MIS5 IH; +TRAZ-28 PO
--- NOTE | 2016-12-19 15:54 | Diagnostic Imaging Report ---
PROCEDURE: CT chest without contrast. TECHNIQUE: Multiple contiguous axial images were obtained through the chest without the use of intravenous contrast. INDICATION: Anterior chest pain after open-heart surgery. FINDINGS: There is displacement of the sternotomy along its mid and inferior aspects with the left side of the sternotomy displaced anteriorly by 2.5 cm at the greatest displacement point compared to the right side of the sternum. There is no sign of healing seen. There is a sternotomy wire fracture suggested involving the second wire from below. This assessment is probably better performed with PA and lateral views of the chest. There are also pacer wires with pericardial leads suggested. There is no significant fluid collection seen. There is question of erosion involving the lower aspect of the sternum on the left side. Alternatively, this could relate to the sternotomy line running obliquely towards the left inferiorly. The lungs demonstrate no significant consolidation. There is a focal area of pulmonary density adjacent to a posterior right rib fracture with prominent callus formation projecting into the adjacent portion of the lung. This is probably chronic atelectasis from the localized mass effect of the callus formation. Other posterior right rib fractures with no evidence of healing are seen at multiple levels in the mid to lower right ribs. No significant displacement is seen, however. The heart size is mildly enlarged. No pericardial effusion. There is suggestion of an aortic valve replacement and CABG performed. Correlate with surgical history. There is no mediastinal mass. No significantly enlarged mediastinal or hilar lymph nodes are seen. Mild degenerative changes in the thoracic spine are noted. IMPRESSION: 1. There are no signs of healing in the sternotomy with displacement up to 2.5 cm anteriorly of the left side of the sternum compared to the right side. There is suggestion of asymmetry and smaller size of the sternotomy on the left side which could be in part related to bone resorption. Correlate with operative findings. No fluid collection at the site to suggest an abscess. 2. Focal area of consolidation in the posterior aspect of the superior segment of the right lower lobe appears to be adjacent to a callus formation projecting into the lung from an adjacent ununited posterior right rib fracture suggestive of focal atelectasis from the projecting callus rather than a suspicious pulmonary nodule. Followup study in four months is suggested to ensure no adverse development. Dictated by: Dictated on workstation # [id number]
== END ==
LOC: RAD 12:16
PROVIDERS: ATTEND Nurse Practitioner Adult Health
DX: R91.8 Other nonspecific abnormal finding of lung field (principal); I50.20 Unspecified systolic (congestive) heart failure; I51.7 Cardiomegaly; J20.9 Acute bronchitis, unspecified; J45.909 Unspecified asthma, uncomplicated; E11.9 Type 2 diabetes mellitus without complications; H93.13 Tinnitus, bilateral; H90.3 Sensorineural hearing loss, bilateral; M81.0 Age-related osteoporosis without current pathological fracture
CPT/HCPCS: 71250

== ENCOUNTER 2017-01-02 10:35 | Inpatient (IN) | payer OTHER ==
[~2017-01-02] VITALS: Ht 160 cm; Wt 95.3 kg
[2017-01-02 12:07] LABS: BILIRUBIN,URINE NEGATIVE (NEGATIVE); KETONES,URINE NEGATIVE (NEGATIVE); LEUKOCYTE ESTERASE ,URINE 2+ (NEGATIVE); NITRITE,URINE NEGATIVE (NEGATIVE); PH,URINE 6.5 (5-9); PROTEIN,URINE NEGATIVE (NEGATIVE); UROBILINOGEN,URINE NORMAL (NORMAL)
[2017-01-02 12:32] LABS: SQUAMOUS EPITHELIAL CELL,UR RARE /HPF
[2017-01-02 12:33] LABS: HYALINE CASTS, URINE RARE /LPF
--- NOTE | 2017-01-02 12:40 | Diagnostic Imaging Report ---
INDICATION: Redness and left scrotal pain. Testicular parenchyma itself appeared unremarkable bilaterally. There were no findings of torsion or orchitis. There is a multiseptated moderate-sized complex left-sided hydrocele which could reflect a pyocele. The left epididymis is enlarged hypoechoic and hypervascularized compatible with epididymitis. The left epididymal head cyst showing no complexity. Right scrotal contents were normal. IMPRESSION: Probable left-sided epididymitis without orchitis. Multiseptated complex left hydrocele/pyocele. Dictated by: Dictated on workstation # [id number]
[2017-01-02 14:27] LABS: BASOPHILS % (AUTO) 0 % (0-10); EOSINOPHILS # (AUTO) 0.1 10^3/uL (0.0-0.3); EOSINOPHILS % (AUTO) 0 % (0-10); LYMPHOCYTES % (AUTO) 11 % (12-44); MEAN CORPUSCULAR HEMOGLOBIN 32 PG (25-34); MEAN CORPUSCULAR HGB CONC 33 G/DL (32-36); MEAN CORPUSCULAR VOLUME 99 FL (80-99); MONOCYTES # (AUTO) 1.4 X 10^3 (0.0-1.0); MONOCYTES % (AUTO) 8 % (0-12); NEUTROPHILS # (AUTO) 15.2 X 10^3 (1.8-7.8); NEUTROPHILS % (AUTO) 81 % (42-75); PLATELET COUNT 168 10^3/uL (130-400); RED BLOOD COUNT 3.61 10^6/uL (4.35-5.85); WHITE BLOOD COUNT 18.8 10^3/uL (4.3-11.0)
[2017-01-02 14:55] LABS: CALCIUM 9.5 MG/DL (8.5-10.1); CREATININE SERUM 1.23 MG/DL (0.60-1.30); POTASSIUM 3.6 MMOL/L (3.6-5.0); hs C REACTIVE PROTEIN 19.3 MG/DL (0.00-0.50)
[2017-01-02 14:58] LABS: BAND NEUTROPHILS 10 %; BASOPHILS % (MANUAL) 0 %; EOSINOPHILS % (MANUAL) 0 %; LYMPHOCYTES % (MANUAL) 12 %; NEUTROPHILS % (MANUAL) 68 %
[2017-01-02] MEDS ORDERED: CLINDAMYCIN INJECTION 900 MG in NS (IVPB) 50 ML IV ONE (16:00)
[2017-01-02] MEDS ORDERED: KETOROLAC 30 MG/ML VIAL IVP ONE (16:00)
--- NOTE | 2017-01-02 16:05 | ED GU-Male ---
General Chief Complaint: -Male Stated Complaint: LEFT TESTICLE PAIN Nursing Triage Note: pt reports l testicular pain since monday. Pt reports worse with movement. Source: patient Exam Limitations: no limitations History of Present Illness Time seen by provider: 11:23 Initial Comments This 76-year-old gentleman presents to the emergency room with complaints of pain in the left testiclethat started within the past 24 hours. The scrotum on the left is erythematous and tender to palpation. He denies any urinary symptoms. He has history of partial left nephrectomy and hernia repair. He is afebrile. Allergies and Home Medications Allergies Coded Allergies: Penicillins (Verified Allergy, Unknown, 03/01/16) cephalexin (Verified Allergy, Unknown, 03/01/16) ciprofloxacin (Verified Allergy, Unknown, 03/01/16) methotrexate (Verified Allergy, Unknown, 03/01/16) Home Medications Acetaminophen 650 Mg Tablet.er, 650 MG PO Q4H PRN for FEVER, (Reported) Albuterol Sulfate 1 Puff Puff, 2 PUFF IH Q6H PRN for SHORTNESS OF BREATH, ( Reported) 1 PUFF = 90 MCG Alendronate Sodium 70 Mg Tablet, 70 MG PO [place], (Reported) Apixaban 5 Mg Tablet, 5 MG PO BID, #60 Prescribed by: SAMMIE BROWN on 01/05/17 1435 Ascorbate Calcium 500 Mg Tablet, 500 MG PO DAILY, (Reported) Aspirin 81 Mg Tablet.dr, 81 MG PO DAILY, (Reported) Atorvastatin Calcium 80 Mg Tablet, 80 MG PO HS, (Reported) Bisacodyl 5 Mg Tablet.dr, 5 MG PO DAILY PRN for CONSTIPATION-4TH LINE, (Reported ) Budesonide/Formoterol Fumarate 10.2 Gm Hfa.aer.ad, 2 PUFF IH BID, (Reported) Bumetanide 2 Mg Tablet, 2 MG PO BID, (Reported) Calcium Carbonate/Vitamin D3 1 Each Tablet, 1 TAB PO BID, (Reported) Cholecalciferol (Vitamin D3) 1,000 Unit Capsule, 1,000 UNIT PO HS, (Reported) Clindamycin HCl 300 Mg Capsule, 300 MG PO TID, #15 Prescribed by: BUCK ARMENDARIZ on 01/05/17 1039 Digoxin 250 Mcg Tablet, 250 MCG PO DAILY, (Reported) Docusate Sodium 100 Mg Capsule, 100 MG PO BID, (Reported) Finasteride 5 Mg Tablet, 5 MG PO HS, (Reported) Fluticasone Propionate 16 Gm [place].susp, 1 SPRAY NS BID, (Reported) Guaifenesin 1,200 Mg Tab.er.12h, 1,200 MG PO BID, (Reported) Loratadine 10 Mg Tablet, 10 MG PO HS, (Reported) Menthol/Lanolin/Calamine/Znox 71 Gm Oint, TP BID PRN for REDNESS, (Reported) APPLY TO BOTTOM Metoprolol Succinate 50 Mg Tab.er.24h, 50 MG PO HS, (Reported) Multivit-Min/FA/Lycopene/Lut 1 Each Tablet, 1 TAB PO 1300, (Reported) [place] 3 Polyunsat Fatty Acids 1,000 Mg Cap, 2,000 MG PO 1300, (Reported) Pantoprazole Sodium 40 Mg Tablet.dr, 40 MG PO BID, (Reported) Potassium Chloride 20 Meq Tablet.er, 20 MEQ PO DAILY, (Reported) Prednisone 5 Mg Tablet, 5 MG PO DAILY, (Reported) Spironolactone 25 Mg Tablet, 25 MG PO DAILY, (Reported) Sulfasalazine 500 Mg Tablet, 1,500 MG PO BID, (Reported) Tacrolimus 1 Mg Capsule, 1 MG PO DAILY, (Reported) Tamsulosin HCl 0.4 Mg Cap, 0.4 MG PO HS, (Reported) Tiotropium [place] 4 Gm Mist.inhal, 2 PUFF IH DAILY, (Reported) Trazodone HCl 50 Mg Tablet, 75 MG PO HS, (Reported) Ubidecarenone/Vit E Acetate 1 Each Capsule, 100 MG PO 1300, (Reported) Vitamin B Complex 1 Each Capsule, 1 CAP PO 1300, (Reported) Constitutional: no symptoms reported EENTM: no symptoms reported Respiratory: no symptoms reported Cardiovascular: no symptoms reported Gastrointestinal: no symptoms reported Genitourinary: see HPI Musculoskeletal: no symptoms reported Skin: see HPI Psychiatric/Neurological: No Symptoms Reported Endocrine: No Symptoms Reported Hematologic/Lymphatic: No Symptoms Reported Past Mocwoab-Lwukmj-Wfpgog Hx Patient Social History Alcohol Use: Denies Use Recreational Drug Use: No Type Used: Cigarettes Former Smoker, Quit: Mar 01, 1972 Recent Foreign Travel: No Contact w/Someone Who Travel: No Recent Infectious Disease Expo: No Recent Hopitalizations: Yes (Laron Rosa) Physical Abuse: No Sexual Abuse: No Mistreated: No Fear: No Immunizations Up To Date Date of Pneumonia Vaccine: Mar 01, 2015 Date of Influenza Vaccine: Dec 01, 2015 Seasonal Allergies Seasonal Allergies: Yes (hayfever) Surgeries History of Surgeries: Yes (kidney sx, hernia repair) Surgeries: Adenoidectomy, CABG, Tonsillectomy, Valve Replacement Respiratory History of Respiratory Disorde: Yes Respiratory Disorders: Asthma, Pneumonia, COPD Currently Using CPAP: No Currently Using BIPAP: No Cardiovascular History of Cardiac Disorders: Yes Cardiac Disorders: Atrial Fibrillation, Coronary Artery Disease, High Cholesterol, Hypertension, Valvular Heart Disease Neurological History of Neurological Disord: No Reproductive System Hx Reproductive Disorders: No Genitourinary History of Genitourinary Disor: Yes (Lt partial nephrectomy r/t Cancer) Genitourinary Disorders: Bladder Infection Gastrointestinal History of Gastrointestinal Di: Yes Gastrointestinal Disorders: Gastroesophageal Reflux, Chronic Constipation Musculoskeletal History of Musculoskeletal Dis: Yes Musculoskeletal Disorders: Arthritis Endocrine History of Endocrine Disorders: Yes (pre diabetic controlled with diet/exercise ) HEENT History of HEENT Disorders: Yes HEENT Disorders: Cataract Loss of Vision: Bilateral Hearing Impairment: Hard of Hearing, Hearing Aide Right Cancer History of Cancer: Yes (Lt partial nephrectomy d/t cancer) Cancer: Kidney Did You Recieve Any Treatments: No Type of Tx Receive: Surgical Intervention Psychosocial History of Psychiatric Problem: No Behavioral Health Disorders: Depression Suicide Risk Score: 0 Integumentary History of Skin or Integumenta: No Blood Transfusions History of Blood Disorders: No Adverse Reaction to a Blood Tr: No Family Medical History Family Medial History: Patient reports no known family medical history. Physical Exam Vital Signs Vital Sign - Last 12Hours 01/02/17 11:07 Temp 99.3 Pulse 69 Resp 20 B/P (MAP) 114/68 Pulse Ox 96 Capillary Refill : Less Than 3 Seconds General Appearance: WD/WN, no apparent distress HEENT: normal ENT inspection Cardiovascular: regular rate, rhythm, no edema, no murmur Respiratory: lungs clear, normal breath sounds, no respiratory distress, no accessory muscle use Gastrointestinal: normal bowel sounds, non tender, soft Genital/Rectal: tenderness, other (left scrotum is tender, erythematous, and mildly swollen) Extremities: swelling Neurologic/Psychiatric: publication distributor II-XII nml as tested, no motor/sensory deficits, alert, normal mood/affect, oriented x 3 Skin: normal color, warm/dry, other (see above) Progress/Results/Core Measures Results/Orders Lab Results Laboratory Tests Test 01/02/17 11:45 01/02/17 14:18 Range/Units Urine Color YELLOW Urine Clarity CLEAR Urine pH 6.5 5-9 Urine Specific [place] 1.010 L 1.016-1.022 Urine Protein NEGATIVE NEGATIVE Urine Glucose (UA) NEGATIVE NEGATIVE Urine Ketones NEGATIVE NEGATIVE Urine Nitrite NEGATIVE NEGATIVE Urine Bilirubin NEGATIVE NEGATIVE Urine Urobilinogen NORMAL NORMAL MG/DL Urine Leukocyte Esterase 2+ H NEGATIVE Urine RBC (Auto) NEGATIVE NEGATIVE Urine RBC RARE /HPF Urine WBC 5-10 H /HPF Urine Squamous Epithelial Cells RARE /HPF Urine Crystals NONE /LPF Urine Bacteria TRACE /HPF Urine Casts PRESENT /LPF Urine Hyaline Casts RARE /LPF Urine Mucus NEGATIVE /LPF Urine Culture Indicated YES White Blood Count 18.8 H 4.3-11.0 10^3/uL Red Blood Count 3.61 L 4.35-5.85 10^6/uL Hemoglobin 11.6 L 13.3-17.7 G/DL Hematocrit 36 L 40-54 % Mean Corpuscular Volume 99 80-99 FL Mean Corpuscular Hemoglobin 32 25-34 PG Mean Corpuscular Hemoglobin Concent 33 32-36 G/DL Red Cell Distribution Width 14.0 10.0-14.5 % Platelet Count 168 130-400 10^3/uL Mean Platelet Volume 9.0 7.4-10.4 FL Neutrophils (%) (Auto) 81 H 42-75 % Lymphocytes (%) (Auto) 11 L 12-44 % Monocytes (%) (Auto) 8 0-12 % Eosinophils (%) (Auto) 0 0-10 % Basophils (%) (Auto) 0 0-10 % Neutrophils # (Auto) 15.2 H 1.8-7.8 X 10^3 Lymphocytes # (Auto) 2.0 1.0-4.0 X 10^3 Monocytes # (Auto) 1.4 H 0.0-1.0 X 10^3 Eosinophils # (Auto) 0.1 0.0-0.3 10^3/uL Basophils # (Auto) 0.0 0.0-0.1 10^3/uL Neutrophils % (Manual) 68 % Lymphocytes % (Manual) 12 % Monocytes % (Manual) 10 % Eosinophils % (Manual) 0 % Basophils % (Manual) 0 % Band Neutrophils 10 % Macrocytosis SLIGHT Sodium Level 135 135-145 MMOL/L Potassium Level 3.6 3.6-5.0 MMOL/L Chloride Level 96 L 98-107 MMOL/L Carbon Dioxide Level 28 21-32 MMOL/L Anion Gap 11 5-14 MMOL/L Blood Urea Nitrogen 20 H 7-18 MG/DL Creatinine 1.23 0.60-1.30 MG/DL Estimat Glomerular Filtration Rate 57 BUN/Creatinine Ratio 16 Glucose Level 116 H 70-105 MG/DL Calcium Level 9.5 8.5-10.1 MG/DL C-Reactive Protein High Sensitivity 19.30 H 0.00-0.50 MG/DL Micro Results Microbiology 01/02/17 Urine Culture - Final, Complete NO GROWTH My Orders Orders - JENNIFER BARR MD Ua Culture If Indicated (01/02/17 11:31) Us Scrotum (Testicle) [id number] (01/02/17 11:31) Urine Culture (01/02/17 11:45) Basic Metabolic Panel (01/02/17 14:08) Cbc With Automated Diff (01/02/17 14:08) Hs C Reactive Protein (01/02/17 14:08) Saline Lock/Iv-Start (01/02/17 14:08) Manual Differential (01/02/17 14:18) Blood Culture (01/02/17 15:51) Lactic Acid Analyzer (01/02/17 15:51) Clindamycin Injection (Cleocin Injection (01/02/17 16:00) Ketorolac Injection (Toradol Injection) (01/02/17 16:00) Vital Signs/I&O Vital Sign - Last 12Hours 01/02/17 11:07 Temp 99.3 Pulse 69 Resp 20 B/P (MAP) 114/68 Pulse Ox 96 Blood Pressure Mean: 83 Progress Note : Progress Note Case was reviewed with Dr. Cespedes including the ultrasound report. He suggested checking labs. Labs were drawn and patient was found to have a significant leukocytosis. Dr. Cespedes was contacted again. He recommended admission with IV antibiotics including clindamycin and gentamicin. These antibodies were selected based on patient's antibiotic allergy profile. He was given Toradol for pain and clindamycin was used to initiate antibiotic therapy in the emergency room. Dr. Cespedes recommended repeating the ultrasound if patient is not improving as expected in the next 24-48 hours. If at any point an abscess is found in the testicle, orchiectomy will become necessary. Departure Communication (Admissions) Time/Spoke to Admitting Phy: 15:[address] Martins Impression Impression: Primary Impression: Cellulitis of scrotum Additional Impressions: Epididymitis Pyocele Leukocytosis Qualified Codes: D72.829 - Elevated white blood cell count, unspecified Disposition: ADMITTED INPATIENT Condition: Improved Admissions Decision to Admit Reason: Admit from ER (General) Decision to Admit/Date: Jan 04, 2017 Time/Decision to Admit Time: 15:56 Departure-Patient Inst. Referrals: DREA LAW DO (PCP/Family) Primary Care Physician Scripts Apixaban (Eliquis) 5 Mg Tablet 5 MG PO BID, #60 TAB Prov: MARCK BACH MD FACP FAC CCDS 01/05/17 Clindamycin HCl (Clindamycin HCl) 300 Mg Capsule 300 MG PO TID, #15 CAP Prov: BUCK ARMENDARIZ DO 01/05/17 JENNIFER BARR MD Jan 02, 2017 16:05
[2017-01-02] MEDS ORDERED: CATHETER FLUSH 10 ML SYR IV PRN (17:45)
[2017-01-02] MEDS ORDERED: KETOROLAC 30 MG/ML VIAL IV PRN (17:45)
[2017-01-02 17:53] VITALS: BP 121/59
[2017-01-02] MEDS: HYDROcodone/APAP 5 MG/325 MG (LORTAB) TAB PO PRN (18:00)
[2017-01-02] MEDS ORDERED: SODIUM CHLORIDE IV SCH ×2 (19:00)
[2017-01-02] MEDS ORDERED: GENTAMICIN IV SCH ×2 (19:00)
[2017-01-02] MEDS: CATHETER FLUSH 10 ML SYR IV SCH (19:32)
[2017-01-02 20:10] VITALS: BP 109/55
[2017-01-02 22:11] VITALS: BP 109/55
[2017-01-02] MEDS: RT-ALBUTEROL SULF 2.5 MG/3 ML PRE-MIX VIAL IH PRN (22:41)
[2017-01-02] MEDS: CLINDAMYCIN 900 MG/NS 50 ML IVPB IV SCH ×2 (23:48)
[2017-01-03 00:05] VITALS: BP 124/61
[2017-01-03 04:09] VITALS: BP 109/65
[2017-01-03] MEDS ORDERED: [UNRECOGNIZED DRUG - REMARK] XX NR (05:00)
[2017-01-03 06:04] LABS: BASOPHILS % (AUTO) 0 % (0-10); EOSINOPHILS % (AUTO) 0 % (0-10); LYMPHOCYTES # (AUTO) 1.7 X 10^3 (1.0-4.0); LYMPHOCYTES % (AUTO) 9 % (12-44); MEAN CORPUSCULAR HEMOGLOBIN 32 PG (25-34); MEAN CORPUSCULAR HGB CONC 33 G/DL (32-36); MEAN CORPUSCULAR VOLUME 97 FL (80-99); MEAN PLATELET VOLUME 9.7 FL (7.4-10.4); MONOCYTES # (AUTO) 1.7 X 10^3 (0.0-1.0); MONOCYTES % (AUTO) 9 % (0-12); NEUTROPHILS # (AUTO) 15.3 X 10^3 (1.8-7.8); NEUTROPHILS % (AUTO) 81 % (42-75); PLATELET COUNT 154 10^3/uL (130-400); RED BLOOD COUNT 3.28 10^6/uL (4.35-5.85); RED CELL DISTRIBUTION WIDTH 14.2 % (10.0-14.5); WHITE BLOOD COUNT 18.7 10^3/uL (4.3-11.0)
[2017-01-03] MEDS: CATHETER FLUSH 10 ML SYR IV SCH ×3 (06:10→22:09)
[2017-01-03 06:46] LABS: ALBUMIN 3.5 GM/DL (3.2-4.5); BILIRUBIN,TOTAL 0.6 MG/DL (0.1-1.0); CALCIUM 8.8 MG/DL (8.5-10.1); CREATININE SERUM 1.29 MG/DL (0.60-1.30); POTASSIUM 3.5 MMOL/L (3.6-5.0); TOTAL PROTEIN 6.3 GM/DL (6.4-8.2); hs C REACTIVE PROTEIN 21.58 MG/DL (0.00-0.50)
[2017-01-03] MEDS: RT-ALBUTEROL SULF 2.5 MG/3 ML PRE-MIX VIAL IH PRN (06:48)
[2017-01-03] MEDS: CLINDAMYCIN 900 MG/NS 50 ML IVPB IV SCH ×6 (08:00→22:08)
[2017-01-03] MEDS ORDERED: RT-SYMBICORT 160/4.5 MCG INHALER PER PUFF IH SCH (08:00)
[2017-01-03] MEDS ORDERED: TIOTROPIUM BROMIDE (SPIRIVA) 5'S INHALER IH SCH (08:00)
[2017-01-03] MEDS ORDERED: PRED5TAB PO (08:18)
[2017-01-03] MEDS ORDERED: SPIR25TA PO (08:18)
[2017-01-03] MEDS ORDERED: BUME2TAB3 PO (08:18)
[2017-01-03 08:30] VITALS: BP 113/59
[2017-01-03] MEDS ORDERED: MENT71OI TP (08:34)
[2017-01-03] MEDS: UMECLIDINIUM BROMIDE (INCRUSE ELLIPTA) 7'S IH SCH (08:48)
[2017-01-03] MEDS: RT-ADVAIR HFA 115/21 MCG PER PUFF IH SCH ×2 (08:49→18:48)
[2017-01-03 12:00] VITALS: BP 94/55
[2017-01-03] MEDS: HYDROcodone/APAP 5 MG/325 MG (LORTAB) TAB PO PRN ×2 (12:07→22:08)
--- NOTE | 2017-01-03 15:00 | History & Physical-Hospitalist ---
HPI History of Present Illness: HPI/Chief Complaint The patient is a 76-year-old white male who presented to the emergency room last evening with a complaint of pain in his left testicle. This pain had begun on Monday and had increased in its intensity through the weekend. He had noted redness and swelling. The testicle was particularly painful to touch or movement. He has a past history of benign prostatic hypertrophy but has had no previous history of testicular problems or epididymitis. He was evaluated in the emergency room by Dr. Jovel and a sonogram showed what appeared to be epididymal swelling and a complex septated mass in the cord suggesting hydrocele or abscess. This was discussed by phone with Dr. Cespedes staff urologist. Because of patient allergies felt best to admit him for IV gentamicin and clindamycin. The patient reported that he had had cardiac bypass surgery at [place] in July of this year. He then had a postop separation of the sternum. The skin did not open and to this point there is been no additional surgery performed. He states that in combined stay he was at [facility] and in our inpatient rehabilitation facility for 56 days. Source: patient Exam Limitations: no limitations Date Seen 01/03/17 Time Seen by Provider: 14:55 Attending Physician Sheldon Esteves MD PCP Wayne Barba DO Referring Physician Date of Admission Jan 02, 2017 at 16:02 Home Medications & Allergies Home Medications Reviewed patient Home Medication Reconciliation Form Allergies Allergies Coded Allergies Penicillins (Verified Allergy, Unknown, 03/01/16) cephalexin (Verified Allergy, Unknown, 03/01/16) ciprofloxacin (Verified Allergy, Unknown, 03/01/16) methotrexate (Verified Allergy, Unknown, 03/01/16) Past Durqbzz-Giudyv-Dbiefc Hx Patient Social History Alcohol Use: Past History Number of Drinks Today: AA Recreational Drug Use: No Smoking Status: Former Smoker Former Smoker, Quit: May 02, 1971 Type Used: Cigarettes Physical Abuse Screen: No Sexual Abuse: No Recent Foreign Travel: No Contact w/other who traveled: No Recent Hopitalizations: Yes (Laron Rosa [place]- September 16, 2016-[facility]) Recent Infectious Disease Expo: No Immunizations Up To Date Date of Pneumonia Vaccine: Mar 01, 2015 Date of Influenza Vaccine: Dec 20, 2016 Seasonal Allergies Seasonal Allergies: Yes (hayfever) Surgeries Yes (kidney sx, hernia repair) Adenoidectomy, CABG, Tonsillectomy, Valve Replacement Respiratory Yes COPD, Pneumonia Currently Using CPAP: No Currently Using BIPAP: No Cardiovascular Yes Atrial Fibrillation, Coronary Artery Disease, High Cholesterol, Hypertension, Valvular Heart Disease Neurological No Reproductive System Hx Reproductive Disorders: No Genitourinary Yes (Lt partial nephrectomy r/t Cancer) Bladder Infection Gastrointestinal Yes Gastroesophageal Reflux, Chronic Constipation Musculoskeletal Yes Arthritis Endocrine History of Endocrine Disorders: Yes (pre diabetic controlled with diet/exercise ) HEENT History of HEENT Disorders: Yes HEENT Disorders: Cataract Loss of Vision: Bilateral Hearing Impairment: Hard of Hearing, Hearing Aide Right Cancer Yes (Lt partial nephrectomy d/t cancer) Kidney Did You Recieve Any Treatments: No Type of Treatment: Surgical Intervention Psychosocial History of Psychiatric Problem: No Behavioral Health Disorders: Depression Integumentary History of Skin or Integumenta: No Blood Transfusions History of Blood Disorders: No Adverse Reaction to a Blood Tr: No Family Medical History Family Hx: Cardiovascular disease G8 BROTHER G8 SISTER Review of Systems Constitutional: see HPI EENTM: no symptoms reported Respiratory: no symptoms reported Cardiovascular: no symptoms reported, other Gastrointestinal: no symptoms reported, other Genitourinary: other (left scrotal) Skin: no symptoms reported Psychiatric/Neurological: No Symptoms Reported Physical Exam Physical Exam Vital Signs Vital Sign - Last 12Hours 01/02/17 01/02/17 01/02/17 11:07 17:53 22:11 Temp 99.3 Pulse 69 Resp 20 B/P (MAP) 114/68 Pulse Ox 96 O2 Delivery Room Air FiO2 21 Capillary Refill : Less Than 3 Seconds General Appearance: Mild Distress, Other (appeared stated age) Eyes: Bilateral Eye Normal Inspection HEENT: Normal ENT Inspection Neck: Normal Inspection Respiratory: Chest Non Tender, Lungs Clear, Normal Breath Sounds, No Accessory Muscle Use, No Respiratory Distress Cardiovascular: Regular Rate, Rhythm, No Edema, No Gallop, No JVD, No Murmur, Normal Peripheral Pulses, Other (subacute sternotomy) Gastrointestinal: Normal Bowel Sounds Genital/Rectal: Other (the left scrotum is obviously red. It is warm to touch. The testicle is greater than double normal size and is quite tender. He actually stated he believes it is slightly less tender than yesterday.) Back: Normal Inspection Extremity: Normal Capillary Refill Neurologic/Psychiatric: Alert Skin: Normal Color, Warm/Dry Lymphatic: No Adenopathy Comments The patient ran a fever through the night and has a white count of 18,000 Results Results/Procedures Lab Laboratory Tests 01/02/17 14:18 01/03/17 05:20 Assessment/Plan Admission Diagnosis Left epididymitis/orchitis. 2.history of recent coronary artery bypass grafting. 3.history of atrial fibrillation. 4.valvular heart disease with valvulotomy and replacement Assessment and Plan IV antibiotics. Consider repeat sonogram in 2-3 days if no evidence of clinical improvement Clinical Quality Measures DVT/VTE Risk/Contraindication: Risk Factor Score Per Nursin RFS Level Per Nursing on Admit: 4+=Very High SHELDON ESTEVES MD Jan 03, 2017 15:00
[2017-01-03 16:00] VITALS: BP 102/56
[2017-01-03] MEDS ORDERED: ENOXAPARIN 40 MG/0.4 ML (LOVENOX) SYR SC SCH (16:30)
[2017-01-03 20:00] VITALS: BP 112/56
[2017-01-04] VITALS (7 sets, daily range): BP systolic 99–122; BP diastolic 57–80
[2017-01-04] MEDS: CLINDAMYCIN 900 MG/NS 50 ML IVPB IV SCH ×6 (06:24→22:22)
[2017-01-04] MEDS: CATHETER FLUSH 10 ML SYR IV SCH ×3 (06:24→22:29)
[2017-01-04] MEDS: HYDROcodone/APAP 5 MG/325 MG (LORTAB) TAB PO PRN ×2 (06:27→14:31)
[2017-01-04] MEDS: RT-ALBUTEROL SULF 2.5 MG/3 ML PRE-MIX VIAL IH PRN ×2 (07:27→22:07)
[2017-01-04] MEDS: UMECLIDINIUM BROMIDE (INCRUSE ELLIPTA) 7'S IH SCH (07:33)
[2017-01-04] MEDS: LACTULOSE SYRUP 10GM/15ML (ENULOSE) 30ML UDC PO SCH ×2 (10:21→22:24)
[2017-01-04 10:32] LABS: BASOPHILS % (AUTO) 0 % (0-10); EOSINOPHILS # (AUTO) 0.2 10^3/uL (0.0-0.3); EOSINOPHILS % (AUTO) 2 % (0-10); LYMPHOCYTES # (AUTO) 1.3 X 10^3 (1.0-4.0); LYMPHOCYTES % (AUTO) 12 % (12-44); MEAN CORPUSCULAR HEMOGLOBIN 32 PG (25-34); MEAN CORPUSCULAR HGB CONC 33 G/DL (32-36); MEAN CORPUSCULAR VOLUME 98 FL (80-99); MEAN PLATELET VOLUME 9.2 FL (7.4-10.4); MONOCYTES # (AUTO) 0.9 X 10^3 (0.0-1.0); MONOCYTES % (AUTO) 8 % (0-12); NEUTROPHILS # (AUTO) 8.2 X 10^3 (1.8-7.8); NEUTROPHILS % (AUTO) 78 % (42-75); PLATELET COUNT 152 10^3/uL (130-400); RED BLOOD COUNT 3.19 10^6/uL (4.35-5.85); RED CELL DISTRIBUTION WIDTH 13.8 % (10.0-14.5); WHITE BLOOD COUNT 10.6 10^3/uL (4.3-11.0)
[2017-01-04 10:48] LABS: ALANINE AMINOTRANSFERASE 18 U/L (0-55); ALBUMIN 3.4 GM/DL (3.2-4.5); ANION GAP 9 MMOL/L (5-14); ASPARTATE AMINO TRANSFERASE 23 U/L (5-34); BILIRUBIN,TOTAL 0.4 MG/DL (0.1-1.0); BLOOD UREA NITROGEN 15 MG/DL (7-18); BUN/CREATININE RATIO 17; CALCIUM 8.8 MG/DL (8.5-10.1); CARBON DIOXIDE 25 MMOL/L (21-32); CHLORIDE 97 MMOL/L (98-107); CREATININE SERUM 0.88 MG/DL (0.60-1.30); GFR ESTIMATED > 60; GLUCOSE 156 MG/DL (70-105); POTASSIUM 3.4 MMOL/L (3.6-5.0); SODIUM 131 MMOL/L (135-145); TOTAL PROTEIN 6.1 GM/DL (6.4-8.2)
--- NOTE | 2017-01-04 11:12 | Progress Note-Hospitalist ---
Progress Note HPI/CC on Admission The patient is a 76-year-old white male who presented to the emergency room last evening with a complaint of pain in his left testicle. This pain had begun on Monday and had increased in its intensity through the weekend. He had noted redness and swelling. The testicle was particularly painful to touch or movement. He has a past history of benign prostatic hypertrophy but has had no previous history of testicular problems or epididymitis. He was evaluated in the emergency room by Dr. Jovel and a sonogram showed what appeared to be epididymal swelling and a complex septated mass in the cord suggesting hydrocele or abscess. This was discussed by phone with Dr. Cespedes staff urologist. Because of patient allergies felt best to admit him for IV gentamicin and clindamycin. The patient reported that he had had cardiac bypass surgery at [place] in July of this year. He then had a postop separation of the sternum. The skin did not open and to this point there is been no additional surgery performed. He states that in combined stay he was at [place] and in our inpatient rehabilitation facility for 56 days. Progress Notes/Assess & Plan Date Seen 01/04/17 Time Seen by Provider: 10:15 Diagonsis/Assessment & Plan Chart Review: No fever Vitals stable Maintained on Clindamycin and Gent medical science liaison: Pt may need to have another physician assess the abscess, but it does not look terrible Patient Interview: Pt was informed that Dr. Cespedes or Dr. Mas will assess the pt to see if the abscess needs drained. Abx were discussed and they seem to be working well. Pt confirms having his labs drawn many times; he states he "feels like a porcupine" Pt confirms bypass and valve surgery in 08/03. Pt denies taking blood thinner. Pt confirms living in [facility] since 05/18/16. Pt went from [facility] last visit back to [place]. Pt states he is no longer on O2. Pt also states he has stopped needing his walker and his cane. Pt states he walks often and often walks with his dog; when he takes his dog, he uses his walker. Physical exam stable. Lungs sound perfect. Pt denies having a BM since admission Pt confirms Dr. Espinosa as Cardiology. Pt was informed that Dr. Espinosa will be consulted to ensure no infection reaches his valves. Pt confirms seeing Dr. Espinosa last in 11/03. Pt states he had hiccups in October and was seen for this. Pt states he can feel the bones in his chest grate together when he breathes. Dr. Daniels ordered a CT scan, this was performed her at [facility]. Pt was informed by Dr. Daniels that he will most likely need a titanium plate put in. AFVSS, Pleasant, O x 3, NAD, talkative RRR, CTAB diminished BS all gonzalez No edema Assessment: Scrotal abscess on Clinda and Gent empirically consulting general surgery for guidance whether I&D is necessary CAD previous bypass 08/03 Moe Zafar Valve replacement 08/03 HTN COPD Chronic debility requiring AL placement at [facility] since 06/03 Plan: BM meds PT/OT Cardiology consult Dr Mas consult for possible I&D Pain meds Abx empirically Scribed by Tameka Romano under the direct supervision of Dr. Armendariz. BUCK ARMENDARIZ DO Jan 04, 2017 11:12
[2017-01-04] MEDS ORDERED: BISACODYL 5 MG (DULCOLAX) TABLET PO PRN (11:15)
[2017-01-04] MEDS ORDERED: MENTHOL/ZINC OXIDE (CALMOSEPTINE) 113 GM TUBE TP PRN (11:15)
[2017-01-04] MEDS ORDERED: ACETAMINOPHEN 325 MG TABLET/CAPLET (TYLENOL) PO PRN (11:15)
[2017-01-04] MEDS ORDERED: RT-ALBUTEROL HFA (VENTOLIN) PER PUFF IH PRN (11:15)
--- NOTE | 2017-01-04 12:01 | Physical Therapy Evaluation ---
PT Evaluation-General Medical Diagnosis Admission Date Jan 02, 2017 at 16:02 Medical Diagnosis: scrotal cellulitis Onset Date: Jan 02, 2017 Therapy Diagnosis Therapy Diagnosis: abn gait Height/Weight Height (Feet): 5 Height (Inches): 3.00 Weight (Pounds): 196 Weight (Ounces): 0.0 Precautions Precautions/Isolations: Standard Precautions Referral Physician: Sheron Reason for Referral: Evaluation/Treatment Medical History Pertinent Medical History: Atrial Fib, Arthritis, COPD, GERD, HTN, Rheumatoid Arthritis Current History Admitted with scrotal cellulitis/left epididymitis. Receiving IV antibiotics Reviewed History: Yes Social History Home: Assisted Living Prior/Core FIM Prior Level of Function Functional [place] Measure 0=Not Assessed/NA 4=Minimal Assistance 1=Total Assistance 5=Supervision or Setup 2=Maximal Assistance 6=Modified [place] 3=Moderate Assistance 7=Complete [place] Pt reports prior to admission, he was walking in the facility without AD but when he walked to the road (approx 1 block), he used his 4WW. Reports he walked to the road and back 4 times a day with his dog. PT Evaluation-Current Subjective Pt reports he is feeling better. Wants to get OOB. Pain Numeric Pain Scale: 0-No Pain Location: No Pain Reported Objective Patient Orientation: Person, Place, Time, Situation Problem Solving: Good ROM/Strength ROM Lower Extremities WFL Strength Lower Extremities WFL Integumentary/Posture Integumentary Refer to nursing notes. Bowel Incontinence: No Bladder Incontinence: No Posture Slight rounded shoulders; symmetrical Neuromuscular (Tone, Coordination, Reflexes) No functional deficits Sensory Vision: Functional Hearing: Functional Hand Dominance: Right Sensation Right Lower Extremit: Intact Sensation Left Lower Extremity: Intact Transfers Functional [place] Measure 0=Not Assessed/NA 4=Minimal Assistance 1=Total Assistance 5=Supervision or Setup 2=Maximal Assistance 6=Modified [place] 3=Moderate Assistance 7=Complete [place] Transfers (B, C, W/C) (FIM): 5 SBA with bed mobility and transfers Gait Mode of Locomotion: Walk Anticipated Mode of Locomotion: Walk Gait (FIM): 5 Distance (FIM): 3=150 ft Distance: 250 ft Gait Level of Assist: 5 Gait Assistive Device: Walker 4 Wheeled Comments/Gait Description steady with gait with 3-4 standing rest breaks. Balance Sitting Static: Good Sitting Dynamic: Good Standing Static: Good Standing Dynamic: Good Assessment/Needs Pt presents with a slight decline in functional gait due to recent hospital stay. He will beneift from skilled PT interventio to address functional mobility and safety. Rehab Potential: Good PT Concrete Floater Goals Shelter Goals PT Shelter Goals Time Frame: Jan 09, 2017 Transfers (B,C,W/C) (FIM): 6 Gait (FIM): 6 Gait distance (FIM): 3=150 ft Gait Assistive Device: Walker 4 Wheeled PT Plan Problem List Problem List: Activity Tolerance, Functional Strength, Safety, Balance, Gait, Transfer, Bed Mobility Treatment/Plan Treatment Plan: Continue Plan of Care Treatment Plan: Bed Mobility, Education, Functional Activity Raheem, Functional Strength, Gait, Safety, Therapeutic Exercise, Transfers Treatment Duration: Jan 09, 2017 Frequency: 5 times per week Estimated Hrs Per Day: .25 hour per day Patient and/or Family Agrees t: Yes Safety Risks/Education Patient Education: Safety Issues Teaching Recipient: Patient Teaching Methods: Discussion Response to Teaching: Reinforcement Needed Time/GCodes Time In: 1120 Time Out: 1135 Total Billed Treatment Time: 15 Total Billed Treatment visit EVL 15 CHUCHO JIMENES PT Jan 04, 2017 12:01
[2017-01-04] MEDS ORDERED: NON-FORMULARY MEDICATION 1 EA EA (Vitamin B Complex 1 CAP) PO SCH (13:00)
[2017-01-04] MEDS ORDERED: VIT E ACETATE PO SCH (13:00)
[2017-01-04] MEDS ORDERED: [UNRECOGNIZED DRUG - OTHER] PO SCH (13:00)
[2017-01-04] MEDS ORDERED: UBIDECARENONE PO SCH (13:00)
[2017-01-04] MEDS: OMEGA 3 (FISH OIL) 1000 MG CAP PO SCH (14:40)
--- NOTE | 2017-01-04 15:00 | Consultation-Cardiology ---
HPI-Cardiology Cardiology Consultation: Date of Consultation 01/04/17 Time Seen by Provider: 15:50 Date of Admission 01-03-17 Attending Physician Sheldon Martins MD Admitting Physician Wayne Barba DO Consulting Physician Mara Espinosa MD HPI: Chief Complaint: A-fib Cellulitis Mr. Nesbitt is a 76 year old male admitted to [facility] from the ED with cellulitis of the scrotum. He reports increasing scrotal edema and pain over the last several days. He reports chronic chest pain at the sternum which has been present since surgery. He states he is following with Dr. Zafar regarding this. He has chronic exertional dyspnea, which he feels is at its baseline. He does not report any palpitations, syncope or near syncope. No c/o LE edema. Review of Systems-Cardiology Review of Systems Constitutional: No chills, No fever, No lightheadedness Eyes: No blindness, No blurred vision, No contact lenses, No drainage, No decreased acuity, No foreign body sensation, No pain, No vision change Ears/Nose/Throat: No chronic hearing loss, No ear discharge, No ear pain, No nasal drainage, No ulcerations Respiratory: As described under HPI Cardiovascular: As described under HPI Gastrointestinal: No abdomen distended, No abdominal pain, No blood streaked bowels, No constipation, No diarrhea, No nausea, No vomiting, No stool coloration changes Genitourinary: As described under HPI, No burning, No dysuria, No discharge, No frequency, No flank pain, No hematuria, No urgency Skin: As described under HPI, No rash, No skin related problems, No ulcerations Psychiatric/Neurological: No anxiety, No depression, No seizure, No focal weakness, No syncope Hematologic: No bleeding abnormalities [id number]-[id number]-Cmyvdv Hx Patient Social History Alcohol Use: Past History Recreational Drug Use: No Smoking Status: Former Smoker Type Used: Cigarettes Recent Foreign Travel: No Recent Infectious Disease Expo: No Hospitalization with Isolation: Denies Physical Abuse Screen: No Sexual Abuse: No Immunizations Up To Date Date of Pneumonia Vaccine: Mar 01, 2015 Date of Influenza Vaccine: Dec 20, 2016 Past Medical History PMH As described under Assessment. Family Medical History Family History: Cardiovascular disease G8 BROTHER G8 SISTER Allergies and Home Medications Allergies Coded Allergies: Penicillins (Verified Allergy, Unknown, 03/01/16) cephalexin (Verified Allergy, Unknown, 03/01/16) ciprofloxacin (Verified Allergy, Unknown, 03/01/16) methotrexate (Verified Allergy, Unknown, 03/01/16) Home Medications Acetaminophen 650 Mg Tablet.er, 650 MG PO Q4H PRN for FEVER, (Reported) Albuterol Sulfate 1 Puff Puff, 2 PUFF IH Q6H PRN for SHORTNESS OF BREATH, ( Reported) 1 PUFF = 90 MCG Alendronate Sodium 70 Mg Tablet, 70 MG PO [place], (Reported) Ascorbate Calcium 500 Mg Tablet, 500 MG PO DAILY, (Reported) Aspirin 81 Mg Tablet.dr, 81 MG PO DAILY, (Reported) Atorvastatin Calcium 80 Mg Tablet, 80 MG PO HS, (Reported) Bisacodyl 5 Mg Tablet.dr, 5 MG PO DAILY PRN for CONSTIPATION-4TH LINE, (Reported ) Budesonide/Formoterol Fumarate 10.2 Gm Hfa.aer.ad, 2 PUFF IH BID, (Reported) Bumetanide 2 Mg Tablet, 2 MG PO BID, (Reported) Calcium Carbonate/Vitamin D3 1 Each Tablet, 1 TAB PO BID, (Reported) Cholecalciferol (Vitamin D3) 1,000 Unit Capsule, 1,000 UNIT PO HS, (Reported) Digoxin 250 Mcg Tablet, 250 MCG PO DAILY, (Reported) Docusate Sodium 100 Mg Capsule, 100 MG PO BID, (Reported) Finasteride 5 Mg Tablet, 5 MG PO HS, (Reported) Fluticasone Propionate 16 Gm [place].susp, 1 SPRAY NS BID, (Reported) Guaifenesin 1,200 Mg Tab.er.12h, 1,200 MG PO BID, (Reported) Loratadine 10 Mg Tablet, 10 MG PO HS, (Reported) Menthol/Lanolin/Calamine/Znox 71 Gm Oint, TP BID PRN for REDNESS, (Reported) APPLY TO BOTTOM Metoprolol Succinate 50 Mg Tab.er.24h, 50 MG PO HS, (Reported) Multivit-Min/FA/Lycopene/Lut 1 Each Tablet, 1 TAB PO 1300, (Reported) [place] 3 Polyunsat Fatty Acids 1,000 Mg Cap, 2,000 MG PO 1300, (Reported) Pantoprazole Sodium 40 Mg Tablet.dr, 40 MG PO BID, (Reported) Potassium Chloride 20 Meq Tablet.er, 20 MEQ PO DAILY, (Reported) Prednisone 5 Mg Tablet, 5 MG PO DAILY, (Reported) Spironolactone 25 Mg Tablet, 25 MG PO DAILY, (Reported) Sulfasalazine 500 Mg Tablet, 1,500 MG PO BID, (Reported) Tacrolimus 1 Mg Capsule, 1 MG PO DAILY, (Reported) Tamsulosin HCl 0.4 Mg Cap, 0.4 MG PO HS, (Reported) Tiotropium [place] 4 Gm Mist.inhal, 2 PUFF IH DAILY, (Reported) Trazodone HCl 50 Mg Tablet, 75 MG PO HS, (Reported) Ubidecarenone/Vit E Acetate 1 Each Capsule, 100 MG PO 1300, (Reported) Vitamin B Complex 1 Each Capsule, 1 CAP PO 1300, (Reported) Physical Exam-Cardiology Physical Exam Vital Signs/I&O Vital Sign - Last 12Hours 01/04/17 01/04/17 01/04/17 01/04/17 07:29 07:33 07:33 08:30 Temp 99.1 Pulse 81 Resp 20 B/P (MAP) 99/65 Pulse Ox 91 91 O2 Delivery Room Air Room Air Room Air Room Air 01/04/17 01/04/17 12:30 16:00 Temp 99.1 99.3 Pulse 52 69 Resp 20 20 B/P (MAP) 115/80 113/69 Pulse Ox 93 92 O2 Delivery Room Air Room Air Intake and Output 01/05/17 00:00 Intake Total 746 ml Output Total 300 ml Balance 446 ml Capillary Refill : Less Than 3 Seconds Constitutional: appears stated age, No apparent distress, well-developed, well- nourished HEENT: PERRL, No discharge, hearing is well preserved, oral hygience is good, No ulceration, No xanthelasmas are seen Neck: No carotid bruit, carotid pulses are 2 + bilaterally Respiratory: No accessory muscle use, No respiratory distress, chest expansion is symmetric, chest is bilaterally symmetric, lungs clear to auscultation, other (prolonged expiratory phase) Cardiovascular: irregularly irregular, No JVD, S1 and S2 Gastrointestinal: No tender, soft, round, No spleenomegaly Rectal: deferred Genital/Rectal: other (scrotal swelling, redness) Extremities: No clubbing, No cyanosis, No significant edema Neurologic/Psychiatric: alert, oriented x 3, grossly intact Skin: other (as noted above) Data Review Labs Laboratory Tests 01/04/17 10:21: White Blood Count 10.6, Red Blood Count 3.19L, Hemoglobin 10.1L, Hematocrit 31L , Mean Corpuscular Volume 98, Mean Corpuscular Hemoglobin 32, Mean Corpuscular Hemoglobin Concent 33, Red Cell Distribution Width 13.8, Platelet Count 152, Mean Platelet Volume 9.2, Neutrophils (%) (Auto) 78H, Lymphocytes (%) (Auto) 12 , Monocytes (%) (Auto) 8, Eosinophils (%) (Auto) 2, Basophils (%) (Auto) 0, Neutrophils # (Auto) 8.2H, Lymphocytes # (Auto) 1.3, Monocytes # (Auto) 0.9, Eosinophils # (Auto) 0.2, Basophils # (Auto) 0.0, Sodium Level 131L, Potassium Level 3.4L, Chloride Level 97L, Carbon Dioxide Level 25, Anion Gap 9, Blood Urea Nitrogen 15, Creatinine 0.88, Estimat Glomerular Filtration Rate > 60, BUN/ Creatinine Ratio 17, Glucose Level 156H, Calcium Level 8.8, Total Bilirubin 0.4 , Aspartate Amino Transf (AST/SGOT) 23, Alanine Aminotransferase (ALT/SGPT) 18, Alkaline Phosphatase 69, Total Protein 6.1L, Albumin 3.4 Microbiology 01/02/17 Blood Culture - Preliminary, Resulted No growth 01/02/17 Urine Culture - Final, Complete NO GROWTH Radiology NAME: BRIAN NESBITT JR [facility] REC#: [id number] PT STATUS: ADM IN : 1940 PHYSICIAN: JENNIFER BARR MD ADMIT DATE: 01/02/17 Signed Date of Exam: 01/02/17 US SCROTUM (Testicle) [id number] INDICATION: Redness and left scrotal pain. Testicular parenchyma itself appeared unremarkable bilaterally. There were no findings of torsion or orchitis. There is a multiseptated moderate-sized complex left-sided hydrocele which could reflect a pyocele. The left epididymis is enlarged hypoechoic and hypervascularized compatible with epididymitis. The left epididymal head cyst showing no complexity. Right scrotal contents were normal. IMPRESSION: Probable left-sided epididymitis without orchitis. Multiseptated complex left hydrocele/pyocele. Dictated by: Dictated on workstation # [id number] Dict: 01/02/17 1232 Trans: 01/02/171716 Interpreted by: PRANAY SAEZ Electronically signed by: PRANAY SAEZ 01/02/171716 ECG Impression ECG Comment a-fib with a controlled ventricular rate A/P-Cardiology Assessment/Admission Diagnosis Scrotal pain -Probable left-sided epididymitis without orchitis. Multiseptated complex left hydrocele/pyocele. Per u/s of 01-04-17 S/P CABG x 1 vessel with veing graft to the STRATEGIC ACCOUNTS MANAGER and the RCA. Trifecta #23 aortic valve replacement. Mitral valve repair with a 26 mm [place] ring. Maze procedure on August 10, [address] [facility] Sternal non-healing post cardiac surtery. CT of 12/19/16: There are no signs of healing in the sternotomy with displacement up to 2.5 cm anteriorly of the left side of the sternum compared to the right side. There is suggestion of asymmetry and smaller size of the sternotomy on the left side which could be in part related to bone resorption. Correlate with operative findings. No fluid collection at the site to suggest an abscess. This is being managed being managed by Dr. Zafar, his CV surgeon Card cath of 03/01/16: moderately severe mitral regurg, mod aortic stenosis ( valve area 1.1 sq cm), 70% prox stenosis of RCA, LVEF 50%, elevated LVEDP, pulmonary hypertension with mean PA pressure 42 mmHg and pulmonary vascular resistance 4 Wood units Chronic a fib with an average vent response of 92 bpm on Holter of 02/17/16 - EKG of shows a-fib with a controlled ventricular response Previously on chronic warfarin anticoag, which was being followed by CAROLYN Pike - [facility] following surgery listed above (d/t a-fib being resolved per pt at the time of CABG) MPI at [place], [place]: LVEF 45%, small amount of inferoapical ischemia Echo Mar 2015 at [facility] [place]: mild LVH, biatrial enlargement, LVEF 45-50%, mod (mean gradient 18, valve area 0.8 sq cm), mild to mod AI, mod MR, PASP could not be calculated Echo 02/18/16 at [place], [place]: moderately severe to severe MR, severe aortic stenosis with valve area approx 0.9 sq cm, PASP 50-55 mmHg, LVEF appox 50 %, mild LVH H/o COPD Obesity with BMI approx 37 Quit tobacco use in 1972 Leg tiredness/claudication Mild carotid arterial disease per u/s of March 18, 2016 CKD stage 2 MANN with segmental pressures of March 2016 is consistent with bilateral distal peripheral arterial disease No evidence of AAA per u/s of 03-18-16 Discussion and Recomendations Complex management issue. Scrotal cellulitis is being managed by medical/ surgical services. OAC had been previously stopped following CABG, d/t return of normal rhythm per pt. However, per EKG carried out today he is in a-fib with a controlled rate. Therefore, we advise resumption of OAC. He had [facility] been [facility] He wishes to go back on warfarin. We will start Lovenox for stroke prophylaxis at this time. When ok with surgical/medical services we will start warfarin tx and overlap with Lovenox and warfarin until INR is therapeutic. He is agreeable. Regarding non- healing sternum, this is being followed by his CV surgeon and we advised him to continue to follow with them as an outpt. We advise continuation of home mediations. We advise close f/u on lab. We will place him on tele. We will repeat the echo to f/u on valvular status (h/o aortic valve replacement at time of CABG in July 2016). We will check a Digoxin level. We would like to thank the medical services for this consult. Further recommendations will be based on his hospital course. This consult is being scribed by Brooklyn Hanson APRN on behalf of Dr. Espinosa after discussion regarding plan of care. Clinical Quality Measures DVT/VTE Risk/Contraindication: Risk Factor Score Per Nursin RFS Level Per Nursing on Admit: 4+=Very High Physician Assessment Physician Assessment Does not describe cp or palp or syncope. Notes gen malaise Lungs: good bilat air entry Cor: irreg Ext: no c/c/e A&R * As documented in our note above that I updated (italics) and as noted below * Enoxaparin added to regimen (for stroke prophylaxis) * Have held off on oral anticoag for now in case he needs scrotal surgery * I have advised continuing follow up with Dr Vetsch on sternal nonhealing * Monitor labs * I spoke with him and answered questions JOSH HANSON DEFECT CUTTER Jan 04, 2017 15:00 MARA ESPINOSA MD [facility]S Jan 04, 2017 17:13
--- NOTE | 2017-01-04 15:41 | Occupational Therapy Eval ---
OT Evaluation-General/PLF Medical Diagnosis Admission Date Jan 02, 2017 at 16:02 Medical Diagnosis: scrotal cellulitis Onset Date: Jan 02, 2017 Therapy Diagnosis Therapy Diagnosis: Weakness Height/Weight Height (Feet): 5 Height (Inches): 3.00 Weight (Pounds): 196 Weight (Ounces): 0.0 Precautions Precautions/Isolations: Standard Precautions Safety Interventions: None Referral Physician: Sheron Referral Reason: Activity Tolerance, Self Care, Evaluation/Treatment, Strengthening/ROM Medical History Pertinent Medical History: Atrial Fib, Arthritis, CABG, COPD, GERD, HTN, Rheumatoid Arthritis Additional Medical History kidney sx, hernia repair Current History Pt. began having severe pain in left testicle. Drove self to hospital. Here for IV antibiotics. Reviewed History: Yes Social History Home: Assisted Living Current Living Status: Entry Into Home: Level Entry ADL-Prior Level of Function ADL PLOF Comments Pt. was independent with daily tasks such as bathing and dressing. States that he ambulated to dining room for meals. DME/Equipment: Bath Chair, Shower DME/Equipment Comments Pt. states that he has a walker with a seat, but that he only uses it when he walks his dog. Otherwise, he does not use equipment. Drive Self: Yes OT Current Status Subjective No pain reported. Appearance Pt. in bed. Agrees to shower. Mental Status/Objective Patient Orientation: Person, Place Attachments: IV Current Glasses/Contacts: Yes Hand Dominance: Right Upper Extremity ROM WFL bilateral UE Upper Extremity Coordination intact ADL-Treatment Functional [place] Measure 0=Not Assessed/NA 4=Minimal Assistance 1=Total Assistance 5=Supervision or Setup 2=Maximal Assistance 6=Modified [place] 3=Moderate Assistance 7=Complete IndependenceIRFPAI Quality Coding Scale 6 Independent with activity with or without an assistive device 5 Patient requires set up or clean up by helper. Patient completes activity by themselves 4 Supervision or touching assist (CGA). [place] provide cues , steadying assist 3 The helper provides less than half the effort to complete the activity 2 The helper provides more than half the effort to complete the activity 1 Dependent. The helper does all the effort to complete an activity 7 Patient refused to complete or attempt activity 9 The patient did not perform the activity before the current illness or injury 88 Not attempted due to Medical conditions or safety concerns Bathing (FIM): 5 (Pt. is able to complete full shower with SBA. States that he can have assist as needed in assisted living facility.) Lower Body Dressing (FIM): 7 (Pt. is able to independently doff and don socks with no difficulty. No other clothing available.) Toileting (FIM): 7 (Pt. is able to transfer to toilet with no equipment needed. ) Transfers (B, C, W/C) (FIM): 5 (Provided SBA to ambulate to and from bathroom. However, pt. did not use walker.) Toilet/Commode Transfer (FIM): 5 Shower Transfer (FIM): 5 Other Treatments Pt. is at prior level of function at this time. States that he can have assistance for supervision in assisted living if needed. Education OT Patient Education: Correct positioning, Modified ADL techniques, Progress toward Goal/Update tx plan, Purpose of tx/functional activities, Reviewed precautions, Rehab process, Transfer techniques Teaching Recipient: Patient Teaching Methods: Demonstration, Discussion Response to Teaching: Verbalize Understanding, Return Demonstration OT Short Term Goals Short Term Goals 1=Demonstrate adherence to instructed precautions during ADL tasks. 2=Patient will verbalize/demonstrate understanding of assistive devices/ modifications for ADL. 3=Patient will improve strength/tolerance for activity to enable patient to perform ADL's. OT Railroad Emergency Services Manager Goals [employer] Emergency Services Manager Goals Pt.'s current ADL level is prior level of function. Therefore, these are pt's goals and pt. has met them. No further OT warranted at this time. 1=Demonstrate adherence to instructed precautions during ADL tasks. 2=Patient will verbalize/demonstrate understanding of assistive devices/ modifications for ADL. 3=Patient will improve strength/tolerance for activity to enable patient to perform ADL's. OT Education/Plan Problem List/Assessment Assessment: No Skilled OT Needs ID'd Discharge Recommendations Plan/Recommendations: Discharge/Goals Met Therapy D/C Recommendations: Assisted Living Target Placement Back to [facility] when IV antibiotics are done. Treatment Plan/Plan of Care Treatment,Training & Education: Yes Patient would benefit from OT for education, treatment and training to promote independence in ADL's, mobility, safety and/or upper extremity function for ADL' s. Treatment Duration: Jan 04, 2017 Frequency: 1 time per week Estimated Hrs Per Day: 1 hour per day Agreement: Yes Rehab Potential: Good Pt. seen for one treatment. Determined pt. to be at prior level. No further OT warranted at this time. Time/GCodes Start Time: 14:20 Stop Time: 15:10 Total Time Billed (hr/min): 50 Billed Treatment Time 1, EVM x 15minutes, ADL x 35minutes BRENDA MCDONALD OT Jan 04, 2017 15:41
--- NOTE | 2017-01-04 17:54 | CONSULTATION REPORT ---
DATE OF SERVICE: 01/04/2017 ADMITTING PHYSICIAN: Sheldon Martins MD. HISTORY OF PRESENT ILLNESS: The patient is a 76-year-old male, who is part of the [place] [facility]; however, now lives in [place], [place]. He reports that he developed pain and swelling in the scrotum, more on the left side. He called his physician at the [place] in [place], where he is instructed to come to the nearest hospital for an ultrasound. He was seen in Emergency Department and did have significant pain of the scrotum and he was admitted for IV antibiotics. Since that time, he has slowly improved. There is still some redness along the majority of the inferior aspect of the scrotum. The left testicle is tender to palpation. There is no fluctuance to indicate any abscess at this time. He states that he is urinating well without any difficulty. He is also tolerating a regular diet, having normal bowel movements and he does not report any issues with fever nor chills. He does have a history of left renal cell cancer requiring a partial nephrectomy. He reports that he was exposed to a substantial amount of Agent [place] while he was in [place]. PAST MEDICAL HISTORY: Coronary artery disease, left renal cell cancer, valvular heart disease, constipation, gastroesophageal reflux disease, prediabetes, depression, hearing loss, and hypertension. PAST SURGICAL HISTORY: Partial left nephrectomy, incisional hernia repair, coronary artery bypass grafting times two vessels in July 2016, as well as a valve replacement. ALLERGIES: PENICILLIN, CEPHALEXIN, CIPRO, AND METHOTREXATE. MEDICATIONS: Albuterol 1 puff q.6 hours, alendronate 70 mg daily, aspirin 81 mg daily, atorvastatin 80 mg daily, Dulcolax 5 mg p.r.n., Symbicort 160/4.5 mcg daily, bumetanide 2 mg daily, calcium daily, digoxin 250 mcg daily, finasteride 5 mg daily, fluticasone propionate 16 grams spray b.i.d., loratadine 10 mg daily, Protonix 20 mg daily, fish oil daily, prednisone 5 mg daily, spironolactone 25 mg daily, sulfasalazine 500 mg b.i.d., tacrolimus 1 mg daily, tamsulosin 0.4 mg daily, and trazodone 50 mg daily. SOCIAL HISTORY: Previous smoke, quit in the 70s, approximately [id number]. Negative alcohol. FAMILY HISTORY: Noncontributory. REVIEW OF SYSTEMS: Well-nourished male, currently in no acute distress. He is not experiencing shortness of breath or difficulty breathing. No chest pain, palpitations, or diaphoresis. No nausea or vomiting, no diarrhea or constipation. No fever or chills. No recent inadvertent weight loss. No problems urinating. All other review of systems are negative. PHYSICAL EXAMINATION: VITAL SIGNS: Temperature is 99.1, blood pressure 115/80, pulse 52, respirations 20, and pulse ox 93% on room air. CHEST: Scattered and distant breath sounds bilaterally. HEART: Regular, no murmurs. EXTREMITIES: No lower extremity edema. Negative Homans sign. HEENT: No scleral icterus. NECK: No cervical lymphadenopathy. ABDOMEN: Soft, nontender, and nondistended. Perineum, there is a mild cellulitis along the anterior aspect of the scrotum bilaterally, which is slightly worse on the left side. There is pain upon palpation. There is no fluctuance to indicate any abscess or any signs of Brissa gangrene. LABORATORY DATA: WBC is 10.6, hemoglobin 10.1, hematocrit 31, and platelets 152. BUN is 15, creatinine 0.88. Initial urinalysis showed a leukocyte esterase of 2+ positive. ASSESSMENT AND PLAN: A 76-year-old male with a scrotal cellulitis as well as possibility of a component of a left epididymitis. He has done well with conservative management with IV antibiotics with clindamycin and gentamicin. He does not have any fluctuance in the scrotal or testicular area as well in the inferior abdominal region to indicate any abscess. There is no bulla, blisters or crepitance to indicate any necrotizing soft tissue infection or Brissa gangrene. We will recommend continued conservative management with IV antibiotics and tight glycemic control and significant ambulation to prevent DVT. We will reevaluate the area in the next assessment days. Job ID: [id number] DocumentID: [id number] Dictated Date: 01/04/2017 16:07:26 Measurement Technician Date: 01/04/2017 17:53:29 Dictated By: QUINN ALCARAZ MD
[2017-01-04] MEDS ORDERED: ALFUZOSIN HCL 10 MG TAB (UROXATRAL) PO SCH (18:00)
[2017-01-04] MEDS: ENOXAPARIN 100 MG/1 ML (LOVENOX) SYR SC SCH (18:04)
[2017-01-04] MEDS ORDERED: SODIUM CHLORIDE IV SCH ×2 (19:00)
[2017-01-04] MEDS ORDERED: GENTAMICIN IV SCH ×2 (19:00)
[2017-01-04] MEDS: RT-ADVAIR HFA 115/21 MCG PER PUFF IH SCH (19:10)
[2017-01-04] MEDS ORDERED: RT-SYMBICORT 160/4.5 MCG INHALER PER PUFF IH SCH (21:00)
[2017-01-04] MEDS ORDERED: traZODone 50 MG (DESYREL) TAB PO SCH (21:00)
[2017-01-04] MEDS ORDERED: FINASTERIDE (PROSCAR) 5 MG TAB PO SCH (21:00)
[2017-01-04] MEDS ORDERED: LORATADINE (CLARITIN) 10 MG TAB PO SCH (21:00)
[2017-01-04] MEDS ORDERED: meTOproloL SUCCINATE 50 MG (TOPROL XL) TAB PO SCH (21:00)
[2017-01-04] MEDS ORDERED: VITAMIN D3 1,000 UNITS (CHOLECALCIFEROL) TABLET PO SCH (21:00)
[2017-01-04] MEDS: guaiFENesin (MUCINEX) 600 MG TAB PO SCH (22:23)
[2017-01-04] MEDS: CALCIUM CARB + VIT D 600 MG (CALCARB + D) TAB PO SCH (22:24)
[2017-01-04] MEDS: PANTOPRAZOLE 40 MG (PROTONIX) TAB PO SCH (22:24)
[2017-01-04] MEDS: BUMETANIDE 1 MG (BUMEX) TAB PO SCH (22:26)
[2017-01-04] MEDS: sulfaSALAzine 500 MG (AZULFIDINE) TAB PO SCH (22:27)
[2017-01-04] MEDS: FLUTICASONE NASAL SPRAY (FLONASE) 16 GM BTL NS SCH (22:38)
[2017-01-04] MEDS: DOCUSATE SODIUM 100 MG (COLACE) CAP PO SCH (22:40)
[2017-01-05 00:41] VITALS: BP 113/60
[2017-01-05 04:33] VITALS: BP 111/59
[2017-01-05 06:13] LABS: BASOPHILS % (AUTO) 0 % (0-10); EOSINOPHILS # (AUTO) 0.3 10^3/uL (0.0-0.3); EOSINOPHILS % (AUTO) 3 % (0-10); LYMPHOCYTES # (AUTO) 1.4 X 10^3 (1.0-4.0); LYMPHOCYTES % (AUTO) 16 % (12-44); MEAN CORPUSCULAR HEMOGLOBIN 32 PG (25-34); MEAN CORPUSCULAR HGB CONC 33 G/DL (32-36); MEAN CORPUSCULAR VOLUME 99 FL (80-99); MEAN PLATELET VOLUME 9.8 FL (7.4-10.4); MONOCYTES # (AUTO) 0.9 X 10^3 (0.0-1.0); MONOCYTES % (AUTO) 11 % (0-12); NEUTROPHILS # (AUTO) 5.8 X 10^3 (1.8-7.8); NEUTROPHILS % (AUTO) 70 % (42-75); PLATELET COUNT 166 10^3/uL (130-400); RED BLOOD COUNT 3.04 10^6/uL (4.35-5.85); WHITE BLOOD COUNT 8.4 10^3/uL (4.3-11.0)
[2017-01-05] MEDS: CLINDAMYCIN 900 MG/NS 50 ML IVPB IV SCH ×2 (06:17)
[2017-01-05] MEDS: ENOXAPARIN 100 MG/1 ML (LOVENOX) SYR SC SCH (06:19)
[2017-01-05 06:25] VITALS: BP 111/59
[2017-01-05 06:34] LABS: DIGOXIN 0.68 NG/ML (0.80-2.00)
[2017-01-05] MEDS: RT-ADVAIR HFA 115/21 MCG PER PUFF IH SCH (06:39)
[2017-01-05] MEDS: UMECLIDINIUM BROMIDE (INCRUSE ELLIPTA) 7'S IH SCH (06:39)
[2017-01-05 06:49] LABS: ALANINE AMINOTRANSFERASE 21 U/L (0-55); ALBUMIN 3.5 GM/DL (3.2-4.5); ANION GAP 11 MMOL/L (5-14); ASPARTATE AMINO TRANSFERASE 29 U/L (5-34); BILIRUBIN,TOTAL 0.6 MG/DL (0.1-1.0); BLOOD UREA NITROGEN 15 MG/DL (7-18); BUN/CREATININE RATIO 15; CALCIUM 9.1 MG/DL (8.5-10.1); CARBON DIOXIDE 25 MMOL/L (21-32); CHLORIDE 99 MMOL/L (98-107); CREATININE SERUM 0.97 MG/DL (0.60-1.30); GFR ESTIMATED > 60; GLUCOSE 128 MG/DL (70-105); POTASSIUM 3.8 MMOL/L (3.6-5.0); SODIUM 135 MMOL/L (135-145); TOTAL PROTEIN 6.5 GM/DL (6.4-8.2)
[2017-01-05] MEDS ORDERED: KCL 20 MEQ TAB (K-DUR) PO SCH (07:00)
[2017-01-05] MEDS: CATHETER FLUSH 10 ML SYR IV SCH (07:02)
[2017-01-05 08:15] VITALS: BP 102/54
[2017-01-05] MEDS ORDERED: TACROLIMUS 1 MG (PROGRAF) CAP NON-FORMULARY PO SCH (09:00)
[2017-01-05] MEDS ORDERED: ASPIRIN E.C. 81 MG (ECOTRIN) TAB PO SCH (09:00)
[2017-01-05] MEDS ORDERED: DIGOXIN 0.25 MG (LANOXIN) TAB PO SCH (09:00)
[2017-01-05] MEDS ORDERED: NON-FORMULARY MEDICATION 1 EA EA (Tiotropium Bromide (Spiriva Respimat 2.5MCG/ACTUATION) 2 IH SCH (09:00)
[2017-01-05] MEDS ORDERED: predniSONE 5 MG TAB PO SCH (09:00)
[2017-01-05] MEDS ORDERED: SPIRONOLACTONE 25 MG (ALDACTONE) TAB PO SCH (09:00)
[2017-01-05] MEDS ORDERED: ASCORBIC ACID (VIT C) 500 MG TABLET PO SCH (09:00)
--- NOTE | 2017-01-05 10:14 | Physical Therapy Daily Note ---
PT Daily Note-Current Subjective Agreeable to PT. No complaints., Hopes to go home tomorrow. Transfers Functional [place] Measure 0=Not Assessed/NA 4=Minimal Assistance 1=Total Assistance 5=Supervision or Setup 2=Maximal Assistance 6=Modified [place] 3=Moderate Assistance 7=Complete IndependenceIRFPAI Quality Coding Scale 6 Independent with activity with or without an assistive device 5 Patient requires set up or clean up by helper. Patient completes activity by themselves 4 Supervision or touching assist (CGA). [place] provide cues , steadying assist 3 The helper provides less than half the effort to complete the activity 2 The helper provides more than half the effort to complete the activity 1 Dependent. The helper does all the effort to complete an activity 7 Patient refused to complete or attempt activity 9 The patient did not perform the activity before the current illness or injury 88 Not attempted due to Medical conditions or safety concerns Treatments Sit to stand without assist. Pt ambulated x 350 ft with 4WW with SBA with safe steady gait and no noted LOB. Pt up in chair post treatment with needs met. Took oxygen level after walking approx 100 ft and it was at 94%. Assessment Current Status: Good Progress Safe mobility. Progressing. PT Astronomy Professor Goals Astronomy Professor Goals PT Astronomy Professor Goals Time Frame: Jan 09, 2017 Transfers (B,C,W/C) (FIM): 6 Gait (FIM): 6 Gait distance (FIM): 3=150 ft Gait Assistive Device: Walker 4 Wheeled PT Plan Problem List Problem List: Activity Tolerance, Functional Strength Treatment/Plan Treatment Plan: Continue Plan of Care Treatment Plan: Bed Mobility, Education, Functional Activity Raheem, Functional Strength, Gait, Safety, Therapeutic Exercise, Transfers Treatment Duration: Jan 09, 2017 Frequency: 5 times per week Estimated Hrs Per Day: .25 hour per day Patient and/or Family Agrees t: Yes Discharge Recommendations Plan Recommend walking in the afternoon with nursing staff. Time/GCodes Time In: 925 Time Out: 940 Total Billed Treatment Time: 15 Total Billed Treatment visit GT 15 CHUCHO JIMENES PT Jan 05, 2017 10:14
[2017-01-05] MEDS: guaiFENesin (MUCINEX) 600 MG TAB PO SCH (10:23)
[2017-01-05] MEDS: FLUTICASONE NASAL SPRAY (FLONASE) 16 GM BTL NS SCH (10:24)
[2017-01-05] MEDS: CALCIUM CARB + VIT D 600 MG (CALCARB + D) TAB PO SCH (10:24)
[2017-01-05] MEDS: sulfaSALAzine 500 MG (AZULFIDINE) TAB PO SCH (10:24)
[2017-01-05] MEDS: BUMETANIDE 1 MG (BUMEX) TAB PO SCH (10:25)
[2017-01-05] MEDS: DOCUSATE SODIUM 100 MG (COLACE) CAP PO SCH (10:25)
[2017-01-05] MEDS: PANTOPRAZOLE 40 MG (PROTONIX) TAB PO SCH (10:25)
--- NOTE | 2017-01-05 10:29 | Progress Note-Cardiology ---
Cardiology SOAP Progress Note Subjective: Feels better today. Has ambulated well. Denies cp or palp or syncope Objective: I&O/Vital Signs Vital Sign - Last 12Hours 01/04/17 01/05/17 01/05/17 01/05/17 22:42 00:41 01:05 04:33 Temp 99.2 98.1 Pulse 98 97 86 82 Resp 18 16 B/P (MAP) 122/64 113/60 111/59 Pulse Ox 95 96 O2 Delivery Nasal Cannula Nasal Cannula O2 Flow Rate 2.00 2.00 01/05/17 01/05/17 01/05/17 01/05/17 06:25 06:39 06:42 08:15 Temp 98.6 Pulse 82 78 Resp 18 B/P (MAP) 102/54 Pulse Ox 96 96 96 97 O2 Delivery Room Air Room Air Nasal Cannula O2 Flow Rate 2.00 FiO2 28 Weight (Pounds): 210 Weight (Ounces): 0.0 Weight (Calculated Kilograms): [id number] Constitutional: appears stated age, No apparent distress, well-developed, well- nourished Respiratory: No accessory muscle use, No respiratory distress, chest expansion is symmetric, chest is bilaterally symmetric, lungs clear to auscultation, other (prolonged expiratory phase) Cardiovascular: irregularly irregular, No JVD, S1 and S2 Gastrointestional: No tender, soft, round, No spleenomegaly Genital/Rectal: other (scrotal swelling, redness) Extremities: No clubbing, No cyanosis, No significant edema Neurologic/Psychiatric: alert, oriented x 3, grossly intact Skin: other (as noted above) Results/Procedures: Labs Laboratory Tests 01/05/17 05:23: White Blood Count 8.4, Red Blood Count 3.04L, Hemoglobin 9.8L, Hematocrit 30L, Mean Corpuscular Volume 99, Mean Corpuscular Hemoglobin 32, Mean Corpuscular Hemoglobin Concent 33, Red Cell Distribution Width 14.0, Platelet Count 166, Mean Platelet Volume 9.8, Neutrophils (%) (Auto) 70, Lymphocytes (%) (Auto) 16, Monocytes (%) (Auto) 11, Eosinophils (%) (Auto) 3, Basophils (%) (Auto) 0, Neutrophils # (Auto) 5.8, Lymphocytes # (Auto) 1.4, Monocytes # (Auto) 0.9, Eosinophils # (Auto) 0.3, Basophils # (Auto) 0.0, Sodium Level 135, Potassium Level 3.8, Chloride Level 99, Carbon Dioxide Level 25, Anion Gap 11, Blood Urea Nitrogen 15, Creatinine 0.97, Estimat Glomerular Filtration Rate > 60, BUN/ Creatinine Ratio 15, Glucose Level 128H, Calcium Level 9.1, Total Bilirubin 0.6 , Aspartate Amino Transf (AST/SGOT) 29, Alanine Aminotransferase (ALT/SGPT) 21, Alkaline Phosphatase 77, Total Protein 6.5, Albumin 3.5, Digoxin Level 0.68L Microbiology 01/02/17 Blood Culture - Preliminary, Resulted No growth 01/02/17 Urine Culture - Final, Complete NO GROWTH Laboratory Tests 01/04/17 10:21 01/05/17 05:23 A/P: Assessment: Scrotal cellulitis with probable epididymitis, managed by Dr Mas and the [facility] Svce S/P CABG x 1 vessel with veing graft to the [employer] and the RCA, Trifecta #23 tissue aortic valve replacement, Mitral valve repair with a 26 mm [place] ring , and Maze procedure on August 10, [address] Zafar at [facility] Sternal non-healing post cardiac surtery. CT of 12/19/16: There are no signs of healing in the sternotomy with displacement up to 2.5 cm anteriorly of the left side of the sternum compared to the right side. There is suggestion of asymmetry and smaller size of the sternotomy on the left side which could be in part related to bone resorption. Correlate with operative findings. No fluid collection at the site to suggest an abscess. This is being managed being managed by Dr. Zafar, his CV surgeon Card cath of 03/01/16: moderately severe mitral regurg, mod aortic stenosis ( valve area 1.1 sq cm), 70% prox stenosis of RCA, LVEF 50%, elevated LVEDP, pulmonary hypertension with mean PA pressure 42 mmHg and pulmonary vascular resistance 4 Wood units Chronic a fib with an average vent response of 92 bpm on Holter of 02/17/16 - EKG of shows a-fib with a controlled ventricular response Previously on chronic warfarin anticoag, which was being followed by CAROLYN Pike - [facility] following surgery listed above (d/t a-fib being resolved per pt at the time of CABG) MPI at [place], [place]: LVEF 45%, small amount of inferoapical ischemia Echo Mar 2015 at [facility]: mild LVH, biatrial enlargement, LVEF 45-50%, mod (mean gradient 18, valve area 0.8 sq cm), mild to mod AI, mod MR, PASP could not be calculated Echo 02/18/16 at [place], [place]: moderately severe to severe MR, severe aortic stenosis with valve area approx 0.9 sq cm, PASP 50-55 mmHg, LVEF appox 50 %, mild LVH H/o COPD Obesity with BMI approx 37 Quit tobacco use in 1971 Leg tiredness/claudication Mild carotid arterial disease per u/s of March 18, 2016 CKD stage 2 MANN with segmental pressures of March 2016 is consistent with bilateral distal peripheral arterial disease No evidence of AAA per u/s of 03-18-16 Plan: Given recurrent atrial fibrillation post Maze procedure during cardiac surgery of July 2016, OAC is indicated. He wishes to be on something easier to take than warfarin and that does not require frequent blood work. Previously, he had been on warfarin because atrial fib was felt to be due to valvular heart disease. Valvular heart disease has been fully and successfully treated and he has had recurrent atrial fib w/o significant valvular heart disease and wishes to be on something other than warfarin (which had been very difficult to manage when he was on it). It appears reasonable to initiate OAC with apixaban. He does not need OAC for AVR because he has a tissue valve in place (Trifecta) We have recommended outpatient f/u MARCK BACH MD FACP FAC CCDS Jan 05, 2017 10:29
[2017-01-05] MEDS: LACTULOSE SYRUP 10GM/15ML (ENULOSE) 30ML UDC PO SCH (10:31)
--- NOTE | 2017-01-05 10:32 | Discharge Summary-Hospitalist ---
Diagnosis/Chief Complaint Date of Admission Jan 02, 2017 at 16:02 Date of Discharge Admission Diagnosis Left epididymitis/orchitis. 2.history of recent coronary artery bypass grafting. 3.history of atrial fibrillation. 4.valvular heart disease with valvulotomy and replacement Discharge Diagnosis Assessment: Scrotal abscess on Clinda and Gent empirically consulted general surgery for guidance whether I&D is necessary and Dr Msa deemed the area stable and needs no intervention CAD previous bypass 08/[address] Zafar Valve replacement 08/03 HTN COPD Chronic debility requiring AL placement at [place] since 06/03 Plan: BM meds PT/OT Cardiology consult Dr Mas consult for possible I&D Pain meds Abx empirically Scribed by Tameka Romano under the direct supervision of Dr. Armendariz. Discharge Summary Discharge Physical Examination Allergies: Coded Allergies: Penicillins (Verified Allergy, Unknown, 03/01/16) cephalexin (Verified Allergy, Unknown, 03/01/16) ciprofloxacin (Verified Allergy, Unknown, 03/01/16) methotrexate (Verified Allergy, Unknown, 03/01/16) Vitals & I&Os Vital Signs Date Time Temp Pulse Resp B/P (MAP) Pulse Ox O2 Delivery O2 Flow Rate FiO2 01/05/17 08:15 98.6 78 18 102/54 97 Nasal Cannula 2.00 01/05/17 06:25 28 Hospital Course Notes from 01/05/17 Patient Interview: Pt was working with PT prior to interview and when asked how he was feeling, pt stated he was out of breath. I discussed IV abx with the pt and informed him that I will confer with Dr. Almazan on how many more days pt will need IV abx Pt states he had a BM yesterday and not one yet today Physical exam stable. Pt states he was put on O2 last night and he and I believe it would be a good idea to be tested for home O2. Pt states abscess appeared on Monday and he states he was feeling "wobbly" on Monday so he used some of his previous home supply O2 then. Pt states he will go back to [place] upon DC Pt confirms pharmacy as [facility]. Pt states that Una at [place] would like pt to bring any rx to her to get filled. AFVSS, pleasant, chronically ill, sitting in chair Irr Irr, CTAB diminished in bases no changes No edema Plan: Home O2 eval deemed no criteria met for home O2 Printed rx for abx of Clinda for 5 more days then close f/u with Dr Barba and Dr Cespedes Scribed by Tameka Romano under the direct supervision of Dr. Armendariz. Hospital course: Patient had an uneventful hospital course. He was placed on empiric antibiotics of gentamicin and clindamycin due to allergy listed to multiple antibiotics and ultrasound did not show any abscess. Leukocytosis resolved and he was afebrile and Dr. Mas assessed the patient to be responding to conservative treatment and IV antibiotics so he was deemed stable for discharge and patient agreed with the plan and will have close follow-up with Dr. Barba and Dr. Cespedes next week. Patient has such severe chronic comorbidities and just overall chronic debility we hope that he can resume his activities of daily living and continue living at assisted living. Labs (last 24 hrs) Laboratory Tests 01/05/17 05:23: White Blood Count 8.4, Red Blood Count 3.04L, Hemoglobin 9.8L, Hematocrit 30L, Mean Corpuscular Volume 99, Mean Corpuscular Hemoglobin 32, Mean Corpuscular Hemoglobin Concent 33, Red Cell Distribution Width 14.0, Platelet Count 166, Mean Platelet Volume 9.8, Neutrophils (%) (Auto) 70, Lymphocytes (%) (Auto) 16, Monocytes (%) (Auto) 11, Eosinophils (%) (Auto) 3, Basophils (%) (Auto) 0, Neutrophils # (Auto) 5.8, Lymphocytes # (Auto) 1.4, Monocytes # (Auto) 0.9, Eosinophils # (Auto) 0.3, Basophils # (Auto) 0.0, Sodium Level 135, Potassium Level 3.8, Chloride Level 99, Carbon Dioxide Level 25, Anion Gap 11, Blood Urea Nitrogen 15, Creatinine 0.97, Estimat Glomerular Filtration Rate > 60, BUN/ Creatinine Ratio 15, Glucose Level 128H, Calcium Level 9.1, Total Bilirubin 0.6 , Aspartate Amino Transf (AST/SGOT) 29, Alanine Aminotransferase (ALT/SGPT) 21, Alkaline Phosphatase 77, Total Protein 6.5, Albumin 3.5, Digoxin Level 0.68L Microbiology 01/02/17 Blood Culture - Preliminary, Resulted No growth 01/02/17 Urine Culture - Final, Complete NO GROWTH Pending Labs Laboratory Tests 01/05/17 05:23: White Blood Count 8.4, Red Blood Count 3.04, Hemoglobin 9.8, Hematocrit 30, Mean Corpuscular Volume 99, Mean Corpuscular Hemoglobin 32, Mean Corpuscular Hemoglobin Concent 33, Red Cell Distribution Width 14.0, Platelet Count 166, Mean Platelet Volume 9.8, Neutrophils (%) (Auto) 70, Lymphocytes (%) (Auto) 16, Monocytes (%) (Auto) 11, Eosinophils (%) (Auto) 3, Basophils (%) (Auto) 0, Neutrophils # (Auto) 5.8, Lymphocytes # (Auto) 1.4, Monocytes # (Auto) 0.9, Eosinophils # (Auto) 0.3, Basophils # (Auto) 0.0, Sodium Level 135, Potassium Level 3.8, Chloride Level 99, Carbon Dioxide Level 25, Anion Gap 11, Blood Urea Nitrogen 15, Creatinine 0.97, Estimat Glomerular Filtration Rate > 60, BUN/ Creatinine Ratio 15, Glucose Level 128, Calcium Level 9.1, Total Bilirubin 0.6, Aspartate Amino Transf (AST/SGOT) 29, Alanine Aminotransferase (ALT/SGPT) 21, Alkaline Phosphatase 77, Total Protein 6.5, Albumin 3.5, Digoxin Level 0.68 Discharge Home Medications: Active Scripts Active Clindamycin HCl 300 Mg Capsule 300 Mg PO TID Reported Calmoseptine Ointment (Menthol/Lanolin/Calamine/Znox) 71 Gm Oint TP BID PRN APPLY TO BOTTOM Bumetanide 2 Mg Tablet 2 Mg PO BID Prednisone 5 Mg Tablet 5 Mg PO DAILY Aldactone (Spironolactone) 25 Mg Tablet 25 Mg PO DAILY Spiriva Respimat 2.5MCG/ACTUATION (Tiotropium [place]) 4 Gm Mist.inhal 2 Puff IH DAILY Digoxin 250 Mcg Tablet 250 Mcg PO DAILY Toprol Xl (Metoprolol Succinate) 50 Mg Tab.er.24h 50 Mg PO HS Fluticasone Propionate 16 Gm [place].susp 1 [place] NS BID Trazodone HCl 50 Mg Tablet 75 Mg PO HS K-Tab ER (Potassium Chloride) 20 Meq Tablet.er 20 Meq PO DAILY Protonix (Pantoprazole Sodium) 40 Mg Tablet.dr 40 Mg PO BID Guaifenesin 1,200 Mg Tab.er.12h 1,200 Mg PO BID Colace (Docusate Sodium) 100 Mg Capsule 100 Mg PO BID Dulcolax (Bisacodyl) 5 Mg Tablet.dr 5 Mg PO DAILY PRN Vitamin D3 (Cholecalciferol (Vitamin D3)) 1,000 Unit Capsule 1,000 Unit PO HS Proair Hfa (Albuterol Sulfate) 1 Puff Puff 2 Puff IH Q6H PRN 1 PUFF = 90 MCG Complete Multi 50+ Tablet (Multivit-Min/FA/Lycopene/Lut) 1 Each Tablet 1 Tab PO 1300 Calcium 600 + Vit D 800 Tab (Calcium Carbonate/Vitamin D3) 1 Each Tablet 1 Tab PO BID Acetaminophen ER (Acetaminophen) 650 Mg Tablet.er 650 Mg PO Q4H PRN Vitamin B Complex 1 Each Capsule 1 Cap PO 1300 Flomax (Tamsulosin HCl) 0.4 Mg Cap 0.4 Mg PO HS Tacrolimus 1 Mg Capsule 1 Mg PO DAILY Sulfasalazine 500 Mg Tablet 1,500 Mg PO BID Loratadine 10 Mg Tablet 10 Mg PO HS Fish Oil 1,000 mg Capsule ([place] 3 Polyunsat Fatty Acids) 1,000 Mg Cap 2,000 Mg PO 1300 Finasteride 5 Mg Tablet 5 Mg PO HS Co Q-10 100 mg Softgel (Ubidecarenone/Vit E Acetate) 1 Each Capsule 100 Mg PO 1300 Symbicort 160-4.5 Mcg Inhaler (Budesonide/Formoterol Fumarate) 10.2 Gm Hfa.aer.ad 2 Puff IH BID Atorvastatin Calcium 80 Mg Tablet 80 Mg PO HS Aspirin EC (Aspirin) 81 Mg Tablet.dr 81 Mg PO DAILY Vitamin C (Ascorbate Calcium) 500 Mg Tablet 500 Mg PO DAILY Alendronate Sodium 70 Mg Tablet 70 Mg PO MEIER Instructions to patient/family Please see electronic discharge instructions given to patient. Clinical Quality Measures DVT/VTE Risk/Contraindication: Risk Factor Score Per Nursin RFS Level Per Nursing on Admit: 4+=Very High BUCK ARMENDARIZ DO Jan 05, 2017 10:32
[2017-01-05] MEDS ORDERED: CLIN300C11 PO (10:39)
[2017-01-05] MEDS ORDERED: APIX5TAB PO ×2 (10:59→14:35)
[2017-01-05] MEDS ORDERED: MULTIVIT W/MINERALS TAB (THERAGRAN M) PO SCH (13:00)
[2017-01-05] MEDS: OMEGA 3 (FISH OIL) 1000 MG CAP PO SCH (13:15)
[2017-01-05] MEDS ORDERED: APIXABAN 5 MG (ELIQUIS) TABLET PO SCH (21:00)
[2017-01-08] MEDS ORDERED: NON-FORMULARY MEDICATION 1 EA EA (Alendronate Sodium 70 MG) PO SCH (11:15)
== END 2017-01-05 14:00 | disposition home or self-care (01) | DRG 728 ==
LOC: EDUNIT# 10:35 → ER 10:38 → 4TH 16:02
PROVIDERS: ADMIT Internal Medicine; ATTEND Internal Medicine
DX: N49.2 Inflammatory disorders of scrotum (principal); N34.0 Urethral abscess; J44.9 Chronic obstructive pulmonary disease, unspecified; J45.909 Unspecified asthma, uncomplicated; I48.2 Chronic atrial fibrillation; I25.10 Atherosclerotic heart disease of native coronary artery without angina pectoris; E78.00 Pure hypercholesterolemia, unspecified; I12.9 Hypertensive chronic kidney disease with stage 1 through stage 4 chronic kidney disease, or unspecified chronic kidney disease; N18.2 Chronic kidney disease, stage 2 (mild); K21.9 Gastro-esophageal reflux disease without esophagitis; K59.09 Other constipation; F32.9 Major depressive disorder, single episode, unspecified; N40.0 Benign prostatic hyperplasia without lower urinary tract symptoms; R73.03 Prediabetes; R53.81 Other malaise; E66.9 Obesity, unspecified; Z68.37 Body mass index [BMI] 37.0-37.9, adult; I73.9 Peripheral vascular disease, unspecified; Z95.1 Presence of aortocoronary bypass graft; Z95.2 Presence of prosthetic heart valve; Z85.528 Personal history of other malignant neoplasm of kidney; Z90.5 Acquired absence of kidney; Z87.891 Personal history of nicotine dependence
CPT/HCPCS: 36415; 76870; 80048; 80053; 80162; 80170; 81000; 83605; 85007; 85025; 85027; 86141; 87040; 87088; 93005; 94640; 94760; 94761; 96365; 96375

== ENCOUNTER → 2017-01-18 | Outpatient (CLI) | payer OTHER ==
[~2017-01-18] MED LIST changes: +APIX5TAB PO; +BUME2TAB3 PO; +CLIN300C11 PO; +MENT71OI TP
[2017-01-18 11:12] LABS: MEAN PLATELET VOLUME 8.5 FL (7.4-10.4); RED BLOOD COUNT 3.31 10^6/uL (4.35-5.85); WHITE BLOOD COUNT 9.4 10^3/uL (4.3-11.0)
[2017-01-18 11:31] LABS: ALBUMIN 3.9 GM/DL (3.2-4.5); BILIRUBIN,TOTAL 0.3 MG/DL (0.1-1.0); CALCIUM 9.5 MG/DL (8.5-10.1); CREATININE SERUM 1.45 MG/DL (0.60-1.30); POTASSIUM 3.8 MMOL/L (3.6-5.0); TOTAL PROTEIN 6.6 GM/DL (6.4-8.2)
[2017-01-18 11:44] LABS: BILIRUBIN,URINE NEGATIVE (NEGATIVE); KETONES,URINE NEGATIVE (NEGATIVE); LEUKOCYTE ESTERASE ,URINE NEGATIVE (NEGATIVE); NITRITE,URINE NEGATIVE (NEGATIVE); PH,URINE 5 (5-9); PROTEIN,URINE NEGATIVE (NEGATIVE); UROBILINOGEN,URINE NORMAL (NORMAL)
[2017-01-18 11:49] LABS: SQUAMOUS EPITHELIAL CELL,UR RARE /HPF
--- NOTE | 2017-01-18 12:28 | Diagnostic Imaging Report ---
PA and lateral views of the chest. INDICATION: Sternal pain. COMPARISON: 09/23/16. FINDINGS: The heart is moderately enlarged. Sternotomy wires are seen. Fractures in some of the sternotomy wires are noted. There is interstitial thickening seen in the lungs which appears to be chronic with no definite superimposed significant airspace consolidation. No significant effusion. No pneumothorax. The mediastinum and masood appear unremarkable. Multiple old rib fracture seen. IMPRESSION: Cardiomegaly with no active congestion or focal airspace consolidation. Dictated by: Dictated on workstation # [id number]
== END ==
LOC: CARD 10:47
PROVIDERS: ATTEND Thoracic Surgery (Cardiothoracic Vascular Surgery)
DX: Z01.810 Encounter for preprocedural cardiovascular examination (principal); Z01.811 Encounter for preprocedural respiratory examination; Z01.812 Encounter for preprocedural laboratory examination; R07.2 Precordial pain
CPT/HCPCS: 36415; 71020; 80053; 81000; 85027; 93005

== ENCOUNTER 2017-06-02 14:09 | Emergency (ER) | payer MEDICARE, OTHER ==
[~2017-06-02] VITALS: Ht 160 cm; Wt 45.4 kg
[~2017-06-02 14:09] MED LIST changes: +ACHD5005 PO; -HYDR-3812 PO; -METO-272 PO; +METO-370 PO
--- NOTE | 2017-06-02 15:08 | ED Back Pain ---
General Chief Complaint: Back Problems Stated Complaint: BACK PAIN Nursing Triage Note: C/O BACK PAIN SINCE MONDAY. NO INJURY Nursing Sepsis Screen: No Definite Risk Source of Information: Patient Exam Limitations: No Limitations History of Present Illness Date Seen by Provider: Jun 02, 2017 Time Seen by Provider: 15:08 Initial Comments 76-year-old male patient presents to the emergency department with complaints of left low back pain with onset Monday. Reports pain does radiate down the left buttock into the left thigh. He may stones. Denies any known history of injury. No fever, nausea, vomiting, diarrhea, or frequency. Has had increased difficulty with urination and dysuria. Patient's Flomax was stopped a couple of months ago. Patient has actually noticed increased difficulty with urination since that time. Location: Paraspinous Muscles Timing/Duration: 4-5 Days, Constant Pain/Injury Location: Back Method of Injury: Unknown (denies known injury) Modifying Factors: Worse With Movement, Worse With Other (worse with palpation) Associated Symptoms: muscle spasms, No fever, No weakness, No numbness in legs/ feet, No tingling in legs/feet, No sensory/motor loss, lower back pain, No loss of bladder control, No loss of bowel control Allergies and Home Medications Allergies Coded Allergies: Penicillins (Verified Allergy, Unknown, 03/01/16) cephalexin (Verified Allergy, Unknown, 03/01/16) ciprofloxacin (Verified Allergy, Unknown, 03/01/16) methotrexate (Verified Allergy, Unknown, 03/01/16) Home Medications Acetaminophen 650 Mg Tablet.er, 650 MG PO Q4H PRN for FEVER, (Reported) Albuterol Sulfate 1 Puff Puff, 2 PUFF IH Q6H PRN for SHORTNESS OF BREATH, ( Reported) 1 PUFF = 90 MCG Alendronate Sodium 70 Mg Tablet, 70 MG PO [place], (Reported) Apixaban 5 Mg Tablet, 5 MG PO BID Prescribed by: SAMMIE BROWN on 01/05/17 1435 Ascorbate Calcium 500 Mg Tablet, 500 MG PO DAILY, (Reported) Aspirin 81 Mg Tablet.dr, 81 MG PO DAILY, (Reported) Atorvastatin Calcium 80 Mg Tablet, 80 MG PO HS, (Reported) Bisacodyl 5 Mg Tablet.dr, 5 MG PO DAILY PRN for CONSTIPATION-4TH LINE, (Reported ) Budesonide/Formoterol Fumarate 10.2 Gm Hfa.aer.ad, 2 PUFF IH BID, (Reported) Bumetanide 2 Mg Tablet, 2 MG PO BID, (Reported) Calcium Carbonate/Vitamin D3 1 Each Tablet, 1 TAB PO BID, (Reported) Cholecalciferol (Vitamin D3) 1,000 Unit Capsule, 1,000 UNIT PO HS, (Reported) Clindamycin HCl 300 Mg Capsule, 300 MG PO TID Prescribed by: BUCK ARMENDARIZ on 01/05/17 1039 Digoxin 250 Mcg Tablet, 250 MCG PO DAILY, (Reported) Docusate Sodium 100 Mg Capsule, 100 MG PO BID, (Reported) Finasteride 5 Mg Tablet, 5 MG PO HS, (Reported) Fluticasone Propionate 16 Gm [place].susp, 1 SPRAY NS BID, (Reported) Guaifenesin 1,200 Mg Tab.er.12h, 1,200 MG PO BID, (Reported) Hydrocodone Bit/Acetaminophen 1 Tab Tab, 1 TAB PO Q6H PRN for pain Prescribed by: CJ IBARRA on 06/02/171707 Loratadine 10 Mg Tablet, 10 MG PO HS, (Reported) Menthol/Lanolin/Calamine/Znox 71 Gm Oint, TP BID PRN for REDNESS, (Reported) APPLY TO BOTTOM Metoprolol Succinate 50 Mg Tab.er.24h, 50 MG PO HS, (Reported) Multivit-Min/FA/Lycopene/Lut 1 Each Tablet, 1 TAB PO 1300, (Reported) Nitrofurantoin Monohyd/M-Cryst 100 Mg Capsule, 1 TAB PO BID Prescribed by: CJ IBARRA on 06/02/17 171 [place] 3 Polyunsat Fatty Acids 1,000 Mg Cap, 2,000 MG PO 1300, (Reported) Pantoprazole Sodium 40 Mg Tablet.dr, 40 MG PO BID, (Reported) Potassium Chloride 20 Meq Tablet.er, 20 MEQ PO DAILY, (Reported) Prednisone 5 Mg Tablet, 5 MG PO DAILY, (Reported) Prednisone 20 Mg Tab, 20 MG PO BID Prescribed by: CJ IBARRA on 06/02/171707 Spironolactone 25 Mg Tablet, 25 MG PO DAILY, (Reported) Sulfasalazine 500 Mg Tablet, 1,500 MG PO BID, (Reported) Tacrolimus 1 Mg Capsule, 1 MG PO DAILY, (Reported) Tamsulosin HCl 0.4 Mg Cap, 0.4 MG PO HS, (Reported) Tamsulosin HCl 0.4 Mg Cap, 0.4 MG PO DAILY Prescribed by: CJ IBARRA on 06/02/171712 Tiotropium [place] 4 Gm Mist.inhal, 2 PUFF IH DAILY, (Reported) Trazodone HCl 50 Mg Tablet, 75 MG PO HS, (Reported) Ubidecarenone/Vit E Acetate 1 Each Capsule, 100 MG PO 1300, (Reported) Vitamin B Complex 1 Each Capsule, 1 CAP PO 1300, (Reported) Patient Home Medication List Home Medication List Reviewed: Yes Constitutional: No chills, No dizziness, No fever, No malaise Respiratory: No cough, No dyspnea on exertion, No phlegm, No short of breath Cardiovascular: No chest pain, No edema, No palpitations Gastrointestinal: No abdominal pain, No constipation, No diarrhea, No jaundice , No loss of appetite, No melena, No nausea, No vomiting Genitourinary: see HPI, No discharge, dysuria, No frequency, No hematuria, hesitancy, No incontinence, No pain Musculoskeletal: see HPI, back pain Skin: no symptoms reported Psychiatric/Neurological: Denies Headache, Denies Numbness, Denies Paresthesia , Denies Tingling, Denies Weakness All Other Systems Reviewed Negative Unless Noted: Yes (Negative excepted noted.) Past [id number]-[id number]-[id number] Hx Patient Social History Alcohol Use: Denies Use Recreational Drug Use: No Smoking Status: Former Smoker Type Used: Cigarettes Former Smoker, Quit: May 02, 1971 Recent Foreign Travel: No Contact w/Someone Who Travel: No Recent Infectious Disease Expo: No Recent Hopitalizations: Yes (Laron Rosa [place]- September 16, 2016-[facility]) Immunizations Up To Date Date of Pneumonia Vaccine: Mar 01, 2015 Date of Influenza Vaccine: Dec 20, 2016 Seasonal Allergies Seasonal Allergies: Yes (hayfever) Surgeries History of Surgeries: Yes (kidney sx, hernia repair) Surgeries: Adenoidectomy, CABG, Tonsillectomy, Valve Replacement Respiratory History of Respiratory Disorde: Yes Respiratory Disorders: Asthma, Pneumonia, COPD Currently Using CPAP: No Currently Using BIPAP: No Cardiovascular History of Cardiac Disorders: Yes Cardiac Disorders: Atrial Fibrillation, Coronary Artery Disease, High Cholesterol, Hypertension, Valvular Heart Disease Neurological History of Neurological Disord: No Reproductive System Hx Reproductive Disorders: No Genitourinary History of Genitourinary Disor: Yes (Lt partial nephrectomy r/t Cancer) Genitourinary Disorders: Bladder Infection Gastrointestinal History of Gastrointestinal Di: Yes Gastrointestinal Disorders: Gastroesophageal Reflux, Chronic Constipation Musculoskeletal History of Musculoskeletal Dis: Yes Musculoskeletal Disorders: Arthritis Endocrine History of Endocrine Disorders: Yes (pre diabetic controlled with diet/exercise ) HEENT History of HEENT Disorders: Yes HEENT Disorders: Cataract Loss of Vision: Bilateral Hearing Impairment: Hard of Hearing, Hearing Aide Right Cancer History of Cancer: Yes (Lt partial nephrectomy d/t cancer) Cancer: Kidney Did You Recieve Any Treatments: No Type of Tx Receive: Surgical Intervention Psychosocial History of Psychiatric Problem: No Behavioral Health Disorders: Depression Integumentary History of Skin or Integumenta: No Blood Transfusions History of Blood Disorders: No Adverse Reaction to a Blood Tr: No Reviewed Nursing Assessment Reviewed/Agree w Nursing PMH: Yes Family Medical History Significant Family History: No Pertinent Family Hx Family Medial History: Cardiovascular disease G8 BROTHER G8 SISTER Physical Exam Vital Signs Vital Signs - First Documented 06/02/17 06/02/17 14:09 17:37 Temp 96.4 Pulse 82 Resp 18 B/P (MAP) 124/75 Pulse Ox 93 O2 Delivery Room Air Capillary Refill : Less Than 3 Seconds General Appearance: No Apparent Distress, WD/WN HEENT: PERRL/EOMI, Pharynx Normal Neck: Full Range of Motion, Normal Inspection, Non Tender, Supple Cardiovascular: Regular Rate, Rhythm, No Murmur, Normal Peripheral Pulses Respiratory: Lungs Clear, Normal Breath Sounds, No Accessory Muscle Use, No Respiratory Distress Gastrointestinal: Normal Bowel Sounds, No Organomegaly, No Pulsatile Mass, Soft , No Distended, Guarding (mild guarding left lower quadrant and left flank), No Rebound, Tenderness (left flank and mild left lower quadrant tenderness) Back: Normal Inspection, No Vertebral Tenderness, CVA Tenderness (L), No CVA Tenderness (R), No Decreased Range of Motion Extremity: Normal Capillary Refill, Normal Inspection, Normal Range of Motion, Non Tender, No Calf Tenderness, Pedal Edema Neurologic/Psychiatric: Alert, Oriented x3, No Motor/Sensory Deficits, Normal Mood/Affect Skin: Normal Color, Warm/Dry Progress/Results/Core Measures Results/Orders Lab Results Laboratory Tests Test 06/02/17 15:11 06/02/17 15:45 Range/Units Urine Color YELLOW Urine Clarity CLEAR Urine pH 5 5-9 Urine Specific [place] 1.015 L 1.016-1.022 Urine Protein 1+ H NEGATIVE Urine Glucose (UA) NEGATIVE NEGATIVE Urine Ketones NEGATIVE NEGATIVE Urine Nitrite NEGATIVE NEGATIVE Urine Bilirubin NEGATIVE NEGATIVE Urine Urobilinogen NORMAL NORMAL MG/DL Urine Leukocyte Esterase 1+ H NEGATIVE Urine RBC (Auto) NEGATIVE NEGATIVE Urine RBC NONE /HPF Urine WBC 0-2 /HPF Urine Squamous Epithelial Cells 5-10 /HPF Urine Crystals NONE /LPF Urine Bacteria NONE /HPF Urine Casts NONE /LPF Urine Mucus NEGATIVE /LPF Urine Culture Indicated NO White Blood Count 10.0 4.3-11.0 10^3/uL Red Blood Count 3.95 L 4.35-5.85 10^6/uL Hemoglobin 12.6 L 13.3-17.7 G/DL Hematocrit 38 L 40-54 % Mean Corpuscular Volume 95 80-99 FL Mean Corpuscular Hemoglobin 32 25-34 PG Mean Corpuscular Hemoglobin Concent 33 32-36 G/DL Red Cell Distribution Width 13.8 10.0-14.5 % Platelet Count 183 130-400 10^3/uL Mean Platelet Volume 9.3 7.4-10.4 FL Neutrophils (%) (Auto) 58 42-75 % Lymphocytes (%) (Auto) 28 12-44 % Monocytes (%) (Auto) 12 0-12 % Eosinophils (%) (Auto) 2 0-10 % Basophils (%) (Auto) 0 0-10 % Neutrophils # (Auto) 5.8 1.8-7.8 X 10^3 Lymphocytes # (Auto) 2.8 1.0-4.0 X 10^3 Monocytes # (Auto) 1.2 H 0.0-1.0 X 10^3 Eosinophils # (Auto) 0.2 0.0-0.3 10^3/uL Basophils # (Auto) 0.0 0.0-0.1 10^3/uL Sodium Level 138 135-145 MMOL/L Potassium Level 3.5 L 3.6-5.0 MMOL/L Chloride Level 99 98-107 MMOL/L Carbon Dioxide Level 28 21-32 MMOL/L Anion Gap 11 5-14 MMOL/L Blood Urea Nitrogen 16 7-18 MG/DL Creatinine 0.96 0.60-1.30 MG/DL Estimat Glomerular Filtration Rate > 60 BUN/Creatinine Ratio 17 Glucose Level 95 70-105 MG/DL Calcium Level 9.5 8.5-10.1 MG/DL Total Bilirubin 0.5 0.1-1.0 MG/DL Aspartate Amino Transf (AST/SGOT) 25 5-34 U/L Alanine Aminotransferase (ALT/SGPT) 19 0-55 U/L Alkaline Phosphatase 59 40-136 U/L Total Protein 6.6 6.4-8.2 GM/DL Albumin 4.1 3.2-4.5 GM/DL My Orders Orders - CJ IBARRA Ua Culture If Indicated (06/02/17 14:44) Ct Abd/Pelvis Wo(Kidney Stone) (06/02/17 15:30) Cbc With Automated Diff (06/02/17 15:30) Comprehensive Metabolic Panel (06/02/17 15:30) Acetaminophen Tablet (Tylenol Tablet) (06/02/17 15:30) Ns Iv 1000 Ml (Sodium Chloride 0.9%) (06/02/17 15:30) Medications Given in ED Vital Signs/I&O Vital Sign - Last 12Hours 06/02/17 06/02/17 14:09 17:37 Temp 96.4 Pulse 82 75 Resp 18 18 B/P (MAP) 124/75 Pulse Ox 93 96 O2 Delivery Room Air Diagnostic Imaging Diagonstic Imaging: CT Plain Films/CT/US/NM/MRI: abdomen, pelvis Comments FINDINGS: Evaluation of the abdominal viscera is mildly limited without contrast. Lower chest: Spiculated subpleural nodule in the right lower lobe adjacent to a chronic nonunited rib fracture is stable measuring 1.3 cm. No pericardial or pleural effusion. Peritoneum: No free intraperitoneal air or fluid. Liver and biliary system: Unenhanced liver is normal. The gallbladder is normal. No biliary duct dilation. Spleen and Pancreas: Spleen is normal. Unenhanced pancreas is grossly normal. Adrenals: Normal. tract: No renal or ureteral calculi. No obstructive uropathy. A 1.4 x 1.4 cm cyst is present in the lower pole of the right kidney. No evidence of solid renal mass on the left. Stranding adjacent to the posterior aspect of the left kidney is likely due to reported partial nephrectomy. Prostate is borderline enlarged. GI tract: Stomach is decompressed. No bowel obstruction. No pericolonic inflammatory changes. Sigmoid colon diverticulosis without diverticulitis. Appendix is not visualized, although there are no inflammatory changes in the right lower quadrant that would suggest acute appendicitis. Vasculature and Lymph nodes: Normal caliber aorta with [id number] calcified plaquing. No abdominal or pelvic lymphadenopathy. Musculoskeletal: No concerning osseous lesion. Severe osteoarthritis of the left hip. No abdominal, pelvic, or inguinal hernias. IMPRESSION: 1. No urinary tract calculi or obstructive uropathy. 2. Stranding in the fat adjacent to the posterior aspect of the left kidney is likely from partial nephrectomy as per provided patient's history. No evidence of recurrent solid mass in the left kidney by noncontrast imaging. 3. Prostatomegaly with potential chronic partial bladder outlet obstruction. Correlation with urinalysis is suggested to exclude cystitis. Dictated by: Dictated on workstation # [id number] Reviewed: Reviewed by Me (radiology report reviewed by me) Departure Communication (Admissions) Progress Notes Laboratory and diagnostic findings discussed with the patient. Plan for discharge to home. UA and CT abdomen/pelvis negative for UTI or ureteral calculi; however, patient in a prescription for Macrobid, Pyridium, and Flomax for the symptoms of cystitis. Patient to follow-up with his PCP for recheck. Impression Impression: Primary Impression: Lumbago Qualified Codes: M54.42 - Lumbago with sciatica, left side Disposition: HOME, SELF-CARE Condition: Improved Departure-Patient Inst. Decision time for Depature: 17:04 Referrals: DREA BARBA DO (PCP/Family) Primary Care Physician Patient Instructions: Low Back Pain (DC) Add. Discharge Instructions: All discharge instructions reviewed with patient and/or family. Voiced understanding. Medications as instructed. You may use Tylenol instead of the prescribed pain medication if you would like. Ice packs or heating pads as needed for pain. Follow-up with Dr. Barba this week for recheck. Return in the emergency department for worsened symptoms, numbness, weakness, abdominal pain, vomiting, difficulty with urination, decreased urination, or any other concerns. Scripts Nitrofurantoin Monohyd/M-Cryst (Macrobid 100 mg Capsule) 100 Mg Capsule 1 TAB PO BID, #14 CAP 0 Refills Prov: CJ IBARRA 06/02/17 Tamsulosin HCl (Flomax) 0.4 Mg Cap 0.4 MG PO DAILY, #14 CAP 0 Refills Prov: CJ IBARRA 06/02/17 Hydrocodone Bit/Acetaminophen (Hydrocodone/Acetaminophen 5/325mg Tablet) 1 Tab Tab 1 TAB PO Q6H Y for pain, #14 TAB 0 Refills Prov: CJ IBARRA 06/02/17 Prednisone (Prednisone) 20 Mg Tab 20 MG PO BID, #10 TAB 0 Refills Prov: CJ IBARRA 06/02/17 CJ IBARRA Jun 02, 2017 15:08
[2017-06-02 15:20] LABS: BILIRUBIN,URINE NEGATIVE (NEGATIVE); CLARITY,URINE CLEAR; COLOR,URINE YELLOW; GLUCOSE, URINE (UA) NEGATIVE (NEGATIVE); KETONES,URINE NEGATIVE (NEGATIVE); LEUKOCYTE ESTERASE ,URINE 1+ (NEGATIVE); NITRITE,URINE NEGATIVE (NEGATIVE); PH,URINE 5 (5-9); PROTEIN,URINE 1+ (NEGATIVE); UROBILINOGEN,URINE NORMAL (NORMAL)
[2017-06-02 15:27] LABS: WBC,URINE 0-2 /HPF
[2017-06-02] MEDS ORDERED: ACETAMINOPHEN 500 MG TAB (TYLENOL) PO STA (15:30)
[2017-06-02] MEDS ORDERED: NS IV 1000 ML 1,000 ML IV ONE (15:30)
[2017-06-02 15:54] LABS: BASOPHILS % (AUTO) 0 % (0-10); EOSINOPHILS # (AUTO) 0.2 10^3/uL (0.0-0.3); EOSINOPHILS % (AUTO) 2 % (0-10); HEMATOCRIT 38 % (40-54); HEMOGLOBIN 12.6 G/DL (13.3-17.7); LYMPHOCYTES # (AUTO) 2.8 X 10^3 (1.0-4.0); LYMPHOCYTES % (AUTO) 28 % (12-44); MEAN CORPUSCULAR HEMOGLOBIN 32 PG (25-34); MEAN CORPUSCULAR HGB CONC 33 G/DL (32-36); MEAN CORPUSCULAR VOLUME 95 FL (80-99); MEAN PLATELET VOLUME 9.3 FL (7.4-10.4); MONOCYTES # (AUTO) 1.2 X 10^3 (0.0-1.0); MONOCYTES % (AUTO) 12 % (0-12); NEUTROPHILS # (AUTO) 5.8 X 10^3 (1.8-7.8); NEUTROPHILS % (AUTO) 58 % (42-75); PLATELET COUNT 183 10^3/uL (130-400); RED BLOOD COUNT 3.95 10^6/uL (4.35-5.85); RED CELL DISTRIBUTION WIDTH 13.8 % (10.0-14.5)
[2017-06-02 16:11] LABS: ALANINE AMINOTRANSFERASE 19 U/L (0-55); ALBUMIN 4.1 GM/DL (3.2-4.5); ALKALINE PHOSPHATASE 59 U/L (40-136); BILIRUBIN,TOTAL 0.5 MG/DL (0.1-1.0); BUN/CREATININE RATIO 17; CALCIUM 9.5 MG/DL (8.5-10.1); CARBON DIOXIDE 28 MMOL/L (21-32); CHLORIDE 99 MMOL/L (98-107); CREATININE SERUM 0.96 MG/DL (0.60-1.30); GFR ESTIMATED > 60; GLUCOSE 95 MG/DL (70-105); POTASSIUM 3.5 MMOL/L (3.6-5.0); SODIUM 138 MMOL/L (135-145); TOTAL PROTEIN 6.6 GM/DL (6.4-8.2)
--- NOTE | 2017-06-02 16:28 | Diagnostic Imaging Report ---
PROCEDURE: CT urinary tract, rule out kidney stone. TECHNIQUE: Multiple contiguous axial images were obtained through the abdomen and pelvis without the use of intravenous contrast. INDICATION: Left flank pain. Partial left nephrectomy. COMPARISON: CT chest of 12/19/2016. FINDINGS: Evaluation of the abdominal viscera is mildly limited without contrast. Lower chest: Spiculated subpleural nodule in the right lower lobe adjacent to a chronic nonunited rib fracture is stable measuring 1.3 cm. No pericardial or pleural effusion. Peritoneum: No free intraperitoneal air or fluid. Liver and biliary system: Unenhanced liver is normal. The gallbladder is normal. No biliary duct dilation. Spleen and Pancreas: Spleen is normal. Unenhanced pancreas is grossly normal. Adrenals: Normal. tract: No renal or ureteral calculi. No obstructive uropathy. A 1.4 x 1.4 cm cyst is present in the lower pole of the right kidney. No evidence of solid renal mass on the left. Stranding adjacent to the posterior aspect of the left kidney is likely due to reported partial nephrectomy. Prostate is borderline enlarged. GI tract: Stomach is decompressed. No bowel obstruction. No pericolonic inflammatory changes. Sigmoid colon diverticulosis without diverticulitis. Appendix is not visualized, although there are no inflammatory changes in the right lower quadrant that would suggest acute appendicitis. Vasculature and Lymph nodes: Normal caliber aorta with [id number] calcified plaquing. No abdominal or pelvic lymphadenopathy. Musculoskeletal: No concerning osseous lesion. Severe osteoarthritis of the left hip. No abdominal, pelvic, or inguinal hernias. IMPRESSION: 1. No urinary tract calculi or obstructive uropathy. 2. Stranding in the fat adjacent to the posterior aspect of the left kidney is likely from partial nephrectomy as per provided patient's history. No evidence of recurrent solid mass in the left kidney by noncontrast imaging. 3. Prostatomegaly with potential chronic partial bladder outlet obstruction. Correlation with urinalysis is suggested to exclude cystitis. Dictated by: Dictated on workstation # [id number]
[2017-06-02] MEDS ORDERED: ACHD5005 PO (17:08)
[2017-06-02] MEDS ORDERED: PRD20T PO (17:08)
[2017-06-02] MEDS ORDERED: TAMS0.4C98 PO (17:13)
[2017-06-02] MEDS ORDERED: NITR-65 PO (17:13)
[2017-06-02 17:37] VITALS: BP 124/75
== END 2017-06-02 17:30 | disposition home or self-care (01) ==
LOC: EDUNIT# 14:09 → ER 14:12
DX: M54.5 Low back pain (principal); F32.9 Major depressive disorder, single episode, unspecified; K21.9 Gastro-esophageal reflux disease without esophagitis; I48.91 Unspecified atrial fibrillation; I25.10 Atherosclerotic heart disease of native coronary artery without angina pectoris; E78.00 Pure hypercholesterolemia, unspecified; I10 Essential (primary) hypertension; J44.9 Chronic obstructive pulmonary disease, unspecified; Z87.01 Personal history of pneumonia (recurrent); Z85.528 Personal history of other malignant neoplasm of kidney; Z90.5 Acquired absence of kidney; Z95.5 Presence of coronary angioplasty implant and graft; Z90.89 Acquired absence of other organs; Z95.4 Presence of other heart-valve replacement; Z79.82 Long term (current) use of aspirin; Z79.52 Long term (current) use of systemic steroids; Z88.0 Allergy status to penicillin; Z88.1 Allergy status to other antibiotic agents; Z88.8 Allergy status to other drugs, medicaments and biological substances; Z87.891 Personal history of nicotine dependence
CPT/HCPCS: 36415; 74176; 80053; 81000; 85025

== ENCOUNTER 2017-08-25 14:16 | Emergency (ER) | payer MEDICARE, OTHER ==
[~2017-08-25] VITALS: Ht 160 cm; Wt 95.3 kg
[~2017-08-25 14:16] MED LIST changes: +NITR-65 PO
[2017-08-25] MEDS ORDERED: ASPIRIN 81 MG CHEW (CHILDREN'S ASA) PO ONE (14:45)
[2017-08-25] MEDS ORDERED: FUROSEMIDE 40 MG/4 ML INJ (LASIX) IV STA (15:00)
[2017-08-25 15:07] LABS: BASOPHILS % (AUTO) 0 % (0-10); EOSINOPHILS # (AUTO) 0.2 10^3/uL (0.0-0.3); EOSINOPHILS % (AUTO) 2 % (0-10); HEMATOCRIT 37 % (40-54); HEMOGLOBIN 12.2 G/DL (13.3-17.7); LYMPHOCYTES # (AUTO) 1.2 X 10^3 (1.0-4.0); LYMPHOCYTES % (AUTO) 15 % (12-44); MEAN CORPUSCULAR HEMOGLOBIN 33 PG (25-34); MEAN CORPUSCULAR HGB CONC 33 G/DL (32-36); MEAN CORPUSCULAR VOLUME 100 FL (80-99); MEAN PLATELET VOLUME 9.7 FL (7.4-10.4); MONOCYTES # (AUTO) 0.6 X 10^3 (0.0-1.0); MONOCYTES % (AUTO) 7 % (0-12); NEUTROPHILS # (AUTO) 6.2 X 10^3 (1.8-7.8); NEUTROPHILS % (AUTO) 76 % (42-75); PLATELET COUNT 189 10^3/uL (130-400); RED BLOOD COUNT 3.71 10^6/uL (4.35-5.85); RED CELL DISTRIBUTION WIDTH 14.7 % (10.0-14.5); WHITE BLOOD COUNT 8.2 10^3/uL (4.3-11.0)
--- NOTE | 2017-08-25 15:09 | ED Respiratory ---
General Chief Complaint: Respiratory Problems Stated Complaint: SOB Nursing Triage Note: soa and swelling has worsened over the last 2-3 weeks. pt called nd at [place] to schedule appt d/t unable to catch his breath and they recommended to be seen at [facility] er. reports gaining 1/2-1lb every day x 2-3 weeks; recently had a cook change and has been complaining of too much salt in their food Source: patient Exam Limitations: no limitations History of Present Illness Date Seen by Provider: Aug 25, 2017 Time Seen by Provider: 14:45 Initial Comments Here with report of shortness of air that has worsened over the last 2-3 weeks. Reports that he's had one half to 1 pound weight gain daily over that time frame. Not currently on diuretic. Does have history of cardiac disease. Normally seen at the [facility] in [place] but was instructed to come here due to the symptoms. Denies nausea, vomiting or diarrhea. Timing/Duration: getting worse Severity: moderate Prior Episodes/Possible Cause: occasional episodes Modifying Factors: Improves With Oxygen, Improves With Rest Associated Symptoms: No chest pain/soreness, No cough, No fever/chills, No lightheadedness, No nasal congestion, No nasal drainage; shortness of breath; No wheezing Allergies and Home Medications Allergies Coded Allergies: Penicillins (Verified Allergy, Unknown, 03/01/16) cephalexin (Verified Allergy, Unknown, 03/01/16) ciprofloxacin (Verified Allergy, Unknown, 03/01/16) methotrexate (Verified Allergy, Unknown, 03/01/16) Home Medications Acetaminophen 650 Mg Tablet.er, 650 MG PO Q4H PRN for FEVER, (Reported) Albuterol Sulfate 1 Puff Puff, 2 PUFF IH Q6H PRN for SHORTNESS OF BREATH, ( Reported) 1 PUFF = 90 MCG Alendronate Sodium 70 Mg Tablet, 70 MG PO [place], (Reported) Apixaban 5 Mg Tablet, 5 MG PO BID Prescribed by: SAMMIE BROWN on 01/05/17 1435 Ascorbate Calcium 500 Mg Tablet, 500 MG PO DAILY, (Reported) Aspirin 81 Mg Tablet.dr, 81 MG PO DAILY, (Reported) Atorvastatin Calcium 80 Mg Tablet, 80 MG PO HS, (Reported) Bisacodyl 5 Mg Tablet.dr, 5 MG PO DAILY PRN for CONSTIPATION-4TH LINE, (Reported ) Budesonide/Formoterol Fumarate 10.2 Gm Hfa.aer.ad, 2 PUFF IH BID, (Reported) Bumetanide 2 Mg Tablet, 2 MG PO BID, (Reported) Calcium Carbonate/Vitamin D3 1 Each Tablet, 1 TAB PO BID, (Reported) Cholecalciferol (Vitamin D3) 1,000 Unit Capsule, 1,000 UNIT PO HS, (Reported) Clindamycin HCl 300 Mg Capsule, 300 MG PO TID Prescribed by: BUCK ARMENDARIZ on 01/05/17 1039 Digoxin 250 Mcg Tablet, 250 MCG PO DAILY, (Reported) Docusate Sodium 100 Mg Capsule, 100 MG PO BID, (Reported) Finasteride 5 Mg Tablet, 5 MG PO HS, (Reported) Fluticasone Propionate 16 Gm [place].susp, 1 SPRAY NS BID, (Reported) Guaifenesin 1,200 Mg Tab.er.12h, 1,200 MG PO BID, (Reported) Hydrocodone Bit/Acetaminophen 1 Tab Tab, 1 TAB PO Q6H PRN for pain Prescribed by: CJ IBARRA on 06/02/171707 Loratadine 10 Mg Tablet, 10 MG PO HS, (Reported) Menthol/Lanolin/Calamine/Znox 71 Gm Oint, TP BID PRN for REDNESS, (Reported) APPLY TO BOTTOM Metoprolol Succinate 50 Mg Tab.er.24h, 50 MG PO HS, (Reported) Multivit-Min/FA/Lycopene/Lut 1 Each Tablet, 1 TAB PO 1300, (Reported) Nitrofurantoin Monohyd/M-Cryst 100 Mg Capsule, 1 TAB PO BID Prescribed by: CJ IBARRA on 06/02/17 171 [place] 3 Polyunsat Fatty Acids 1,000 Mg Cap, 2,000 MG PO 1300, (Reported) Pantoprazole Sodium 40 Mg Tablet.dr, 40 MG PO BID, (Reported) Potassium Chloride 20 Meq Tablet.er, 20 MEQ PO DAILY, (Reported) Prednisone 5 Mg Tablet, 5 MG PO DAILY, (Reported) Prednisone 20 Mg Tab, 20 MG PO BID Prescribed by: CJ IBARRA on 06/02/171707 Spironolactone 25 Mg Tablet, 25 MG PO DAILY, (Reported) Sulfasalazine 500 Mg Tablet, 1,500 MG PO BID, (Reported) Tacrolimus 1 Mg Capsule, 1 MG PO DAILY, (Reported) Tamsulosin HCl 0.4 Mg Cap, 0.4 MG PO HS, (Reported) Tamsulosin HCl 0.4 Mg Cap, 0.4 MG PO DAILY Prescribed by: CJ IBARRA on 06/02/171712 Tiotropium [place] 4 Gm Mist.inhal, 2 PUFF IH DAILY, (Reported) Trazodone HCl 50 Mg Tablet, 75 MG PO HS, (Reported) Ubidecarenone/Vit E Acetate 1 Each Capsule, 100 MG PO 1300, (Reported) Vitamin B Complex 1 Each Capsule, 1 CAP PO 1300, (Reported) Patient Home Medication List Home Medication List Reviewed: Yes Review of Systems Constitutional: see HPI; No chills, No fever EENTM: no symptoms reported Respiratory: see HPI, orthopnea, short of breath; No wheezing Cardiovascular: No chest pain; edema Gastrointestinal: No abdominal pain, No nausea, No vomiting Genitourinary: no symptoms reported Musculoskeletal: no symptoms reported Skin: no symptoms reported All Other Systems Reviewed Negative Unless Noted: Yes Past Mfqprjc-Dyjcjz-Yaaymv Hx Past Med/Social Hx: Reviewed Nursing Past Med/Soc Hx Patient Social History Alcohol Use: Denies Use Recreational Drug Use: No Smoking Status: Former Smoker Type Used: Cigarettes Former Smoker, Quit: May 02, 1971 Recent Foreign Travel: No Contact w/Someone Who Travel: No Recent Infectious Disease Expo: No Recent Hopitalizations: No Physical Abuse: No Sexual Abuse: No Mistreated: No Fear: No Immunizations Up To Date Tetanus Booster (TDap): More than 5yrs Date of Pneumonia Vaccine: Mar 01, 2015 Date of Influenza Vaccine: Dec 20, 2016 Seasonal Allergies Seasonal Allergies: Yes (hayfever) Past Medical History Surgeries: Yes (kidney sx, hernia repair) Adenoidectomy, CABG, Tonsillectomy, Valve Replacement Respiratory: Yes Asthma, Pneumonia, COPD Currently Using CPAP: No Currently Using BIPAP: No Cardiac: Yes Atrial Fibrillation, Coronary Artery Disease, High Cholesterol, Hypertension, Valvular Heart Disease Neurological: No Reproductive Disorders: No Genitourinary: Yes (Lt partial nephrectomy r/t Cancer) Bladder Infection Gastrointestinal: Yes Gastroesophageal Reflux, Chronic Constipation Musculoskeletal: Yes Arthritis Endocrine: Yes (pre diabetic controlled with diet/exercise) HEENT: Yes Cataract Loss of Vision: Bilateral Hearing Impairment: Hard of Hearing, Hearing Aide Right Cancer: Yes (Lt partial nephrectomy d/t cancer) Kidney Did You Recieve Any Treatments: No What Type of Treatment Did You: Surgical Intervention Psychosocial: No Depression Nursing Suicide Risk Score: 1 Integumentary: No Blood Disorders: No Adverse Reaction/Blood Tranf: No Family Medical History Reviewed Nursing Family Hx Cardiovascular disease G8 BROTHER G8 SISTER No Pertinent Family Hx Physical Exam Vital Signs Vital Signs - First Documented 08/25/17 08/25/17 14:29 14:33 Pulse 107 Resp 24 B/P (MAP) 105/74 (84) Pulse Ox 97 O2 Delivery Nasal Cannula O2 Flow Rate 2.00 Capillary Refill : Less Than 3 Seconds General Appearance: WD/WN, no apparent distress HEENT: PERRL/EOMI, pharynx normal Neck: full range of motion, supple Respiratory: no accessory muscle use, crackles; No wheezing Cardiovascular: no murmur, tachycardia Gastrointestinal: non tender, soft Extremities: non-tender, normal inspection Neurologic/Psychiatric: alert, oriented x 3 Skin: normal color, warm/dry Progress/Results/Core Measures Suspected Sepsis Recent Fever Within 48 Hours: No Infection Criteria Present: None New/Unexplained Altered Menta: No Sepsis Screen: No Definite Risk SIRS Temperature: Pulse: 107 Respiratory Rate: 24 Laboratory Tests 08/25/17 14:59: White Blood Count 8.2 Blood Pressure 105 /74 Mean: 84 Laboratory Tests 08/25/17 14:59: Creatinine 1.29, INR Comment 1.2, Platelet Count 189, Total Bilirubin 0.5 Results/Orders Lab Results Laboratory Tests Test 08/25/17 14:57 08/25/17 14:59 Range/Units Digoxin Level < 0.30 L 0.80-2.00 NG/ML White Blood Count 8.2 4.3-11.0 10^3/uL Red Blood Count 3.71 L 4.35-5.85 10^6/uL Hemoglobin 12.2 L 13.3-17.7 G/DL Hematocrit 37 L 40-54 % Mean Corpuscular Volume 100 H 80-99 FL Mean Corpuscular Hemoglobin 33 25-34 PG Mean Corpuscular Hemoglobin Concent 33 32-36 G/DL Red Cell Distribution Width 14.7 H 10.0-14.5 % Platelet Count 189 130-400 10^3/uL Mean Platelet Volume 9.7 7.4-10.4 FL Neutrophils (%) (Auto) 76 H 42-75 % Lymphocytes (%) (Auto) 15 12-44 % Monocytes (%) (Auto) 7 0-12 % Eosinophils (%) (Auto) 2 0-10 % Basophils (%) (Auto) 0 0-10 % Neutrophils # (Auto) 6.2 1.8-7.8 X 10^3 Lymphocytes # (Auto) 1.2 1.0-4.0 X 10^3 Monocytes # (Auto) 0.6 0.0-1.0 X 10^3 Eosinophils # (Auto) 0.2 0.0-0.3 10^3/uL Basophils # (Auto) 0.0 0.0-0.1 10^3/uL Prothrombin Time 15.3 H 12.2-14.7 SEC INR Comment 1.2 0.8-1.4 Activated Partial Thromboplast Time 33 24-35 SEC Sodium Level 137 135-145 MMOL/L Potassium Level 4.0 3.6-5.0 MMOL/L Chloride Level 101 98-107 MMOL/L Carbon Dioxide Level 25 21-32 MMOL/L Anion Gap 11 5-14 MMOL/L Blood Urea Nitrogen 17 7-18 MG/DL Creatinine 1.29 0.60-1.30 MG/DL Estimat Glomerular Filtration Rate 54 BUN/Creatinine Ratio 13 Glucose Level 220 H 70-105 MG/DL Calcium Level 9.2 8.5-10.1 MG/DL Magnesium Level 1.8 1.8-2.4 MG/DL Total Bilirubin 0.5 0.1-1.0 MG/DL Aspartate Amino Transf (AST/SGOT) 56 H 5-34 U/L Alanine Aminotransferase (ALT/SGPT) 48 0-55 U/L Alkaline Phosphatase 78 40-136 U/L Myoglobin 78.2 10.0-92.0 NG/ML Troponin I < 0.30 <0.30 NG/ML B-Type Natriuretic Peptide 363.7 H <100.0 PG/ML Total Protein 6.9 6.4-8.2 GM/DL Albumin 4.1 3.2-4.5 GM/DL My Orders Orders - MICHAEL ROMAN MD Furosemide Injection (Lasix Injection) (08/25/17 15:00) Digoxin (08/25/17 15:09) Medications Given in ED Vital Signs/I&O 08/25/17 08/25/1708/25/18 14:29 14:33 18:12 Pulse 107 107 Resp 24 20 B/P (MAP) 105/74 (84) 124/72 Pulse Ox 97 95 96 O2 Delivery Nasal Cannula Nasal Cannula Room Air O2 Flow Rate 2.00 Capillary Refill : Less Than 3 Seconds Blood Pressure Mean: 84 Progress Note : Progress Note Seen and evaluated. IV, labs, EKG and chest x-ray ordered. 022 L via nasal cannula applied and this did help. Chest x-ray does show cardiomegaly with moderate pulmonary vascular congestion. Lasix 40 mg IV ordered. Pending labs. Monitor patient. 1620: Patient is doing a little better with oxygen and has started produce urine after the Lasix. Does have elevated BNP as well as congestion on chest x-ray. Given his reported 20 pound weight gain and his respiratory distress, patient will require admission for further workup related to heart failure. Digoxin level is not therapeutic. Atrial fibrillation is not rapid at this time though. Patient has VA benefits and would prefer VA hospitalization if his VA center is available. I have made contact with the [facility] and we will fax information to them. Pending evaluation for acceptance of transfer. 1645: Patient was accepted by Dr. Wei at the [facility] in [place], [place]. He will go by EMS and they have approved the transfer. Patient agrees to transfer. Initiated transfer proceedings with [facility] for transport. I did speak with Dr. Wei about the chest x-ray findings. After diuresis, patient will be evaluated further for concerns on chest x-ray as indicated. ECG Initial ECG Impression Date: Aug 25, 2017 Initial ECG Impression Time: 14:45 Initial ECG Rate: 102 Initial ECG Rhythm: A Fib/Flutter Initial ECG Impression: Atrial Fibrillation Initial ECG Comparisson: Changed Comment Atrial fibrillation with slow tachycardia rate. Left axis deviation. No evidence of ST elevation SD. Similar to previous of 01/18/17. Interpreted by me. Diagnostic Imaging Diagonstic Imaging: Xray Plain Films/CT/US/NM/MRI: chest Comments [facility] [place], [place] NAME: BRIAN CORDERO JR [facility] REC#: [id number] PT STATUS: REG ER : 1940 PHYSICIAN: KRIS ZUNIGA WATER FILTERER HELPER ADMIT DATE: 08/25/17/ER Draft Date of Exam:08/25/17 CHEST 1 VIEW, AP/PA ONLY INDICATION: Shortness of air. Swelling. COMPARISON: 01/18/2017. FINDINGS: Single frontal radiographic view of the chest was obtained and demonstrates interval progression of significant cardiomegaly. Pulmonary vasculature however is only minimally prominent. Evaluation of lung gonzalez demonstrates prominent pleural-based opacification along the medial right apex. Otherwise, lungs are clear. No pneumothorax is seen on either side. No large effusions are seen. Bony structures show no gross acute abnormalities. IMPRESSION: 1.Prominent pleural-based opacification of the medial right lung apex. This does appear to be new when compared to prior exam. Findings could be positional in nature and related to superimposition of arch vessels. However, juxtapleural right apical mass cannot be excluded. Correlation with CT is recommended. 2. Interval progression of significant cardiomegaly, but with only mild prominence of pulmonary vasculature. Underlying pericardial effusion is considered. Dictated on workstation # [id number] Dict: 08/25/17 1503 Trans: 08/25/[address] [facility] [id number] Interpreted by: NOY RUTLEDGE MD Electronically signed by: Departure Impression Primary Impression: Acute heart failure Qualified Codes: I50.9 - Heart failure, unspecified Disposition: 02 XFER SHT-TRM HOSP Condition: Stable Transfer Transfer Time: 16:45 Transfer Facility: [place], [place], Dr. Wei accepting Method of Transfer: EMS Departure-Patient Inst. Referrals: DREA LAW DO (PCP/Family) Primary Care Physician MICHAEL ROMAN MD Aug 25, 2017 15:09
--- NOTE | 2017-08-25 15:14 | Diagnostic Imaging Report ---
INDICATION: Shortness of air. Swelling. COMPARISON: 01/18/2017. FINDINGS: Single frontal radiographic view of the chest was obtained and demonstrates interval progression of significant cardiomegaly. Pulmonary vasculature however is only minimally prominent. Evaluation of lung gonzalez demonstrates prominent pleural-based opacification along the medial right apex. Otherwise, lungs are clear. No pneumothorax is seen on either side. No large effusions are seen. Bony structures show no gross acute abnormalities. IMPRESSION: 1.Prominent pleural-based opacification of the medial right lung apex. This does appear to be new when compared to prior exam. Findings could be positional in nature and related to superimposition of arch vessels. However, juxtapleural right apical mass cannot be excluded. Correlation with CT is recommended. 2. Interval progression of significant cardiomegaly, but with only mild prominence of pulmonary vasculature. Underlying pericardial effusion is considered. Dictated by: Dictated on workstation # [id number]
[2017-08-25 15:18] LABS: INR 1.2 (0.8-1.4); PROTHROMBIN TIME PATIENT 15.3 SEC (12.2-14.7)
[2017-08-25 15:29] LABS: ALANINE AMINOTRANSFERASE 48 U/L (0-55); ALBUMIN 4.1 GM/DL (3.2-4.5); ALKALINE PHOSPHATASE 78 U/L (40-136); BILIRUBIN,TOTAL 0.5 MG/DL (0.1-1.0); BUN/CREATININE RATIO 13; CALCIUM 9.2 MG/DL (8.5-10.1); CARBON DIOXIDE 25 MMOL/L (21-32); CHLORIDE 101 MMOL/L (98-107); CREATININE SERUM 1.29 MG/DL (0.60-1.30); GFR ESTIMATED 54; GLUCOSE 220 MG/DL (70-105); MAGNESIUM 1.8 MG/DL (1.8-2.4); SODIUM 137 MMOL/L (135-145); TOTAL PROTEIN 6.9 GM/DL (6.4-8.2)
[2017-08-25 15:37] LABS: MYOGLOBIN SERUM 78.2 NG/ML (10.0-92.0)
[2017-08-25 18:12] VITALS: BP 124/72
== END 2017-08-25 18:05 | disposition short-term general hospital (02) ==
LOC: EDUNIT# 14:16 → ER 14:18
DX: I50.9 Heart failure, unspecified (principal); J43.9 Emphysema, unspecified; I48.91 Unspecified atrial fibrillation; I25.10 Atherosclerotic heart disease of native coronary artery without angina pectoris; F32.9 Major depressive disorder, single episode, unspecified; E78.00 Pure hypercholesterolemia, unspecified; I10 Essential (primary) hypertension; K21.9 Gastro-esophageal reflux disease without esophagitis; Z87.19 Personal history of other diseases of the digestive system; Z90.89 Acquired absence of other organs; Z95.1 Presence of aortocoronary bypass graft; Z95.2 Presence of prosthetic heart valve; Z87.01 Personal history of pneumonia (recurrent); Z90.5 Acquired absence of kidney; Z85.528 Personal history of other malignant neoplasm of kidney; Z87.440 Personal history of urinary (tract) infections; Z87.891 Personal history of nicotine dependence; Z79.82 Long term (current) use of aspirin; Z79.51 Long term (current) use of inhaled steroids; Z79.52 Long term (current) use of systemic steroids; Z88.0 Allergy status to penicillin; Z88.1 Allergy status to other antibiotic agents; Z88.6 Allergy status to analgesic agent
CPT/HCPCS: 36415; 71045; 80053; 80162; 83735; 83874; 83880; 84484; 85025; 85610; 85730; 93005; 93041; 96374

== ENCOUNTER → 2017-12-04 | Outpatient (CLI) | payer MEDICARE, OTHER ==
[~2017-12-04] MED LIST changes: -SPIR25TA3 PO; +SPIR25TA5 PO; +TRAZ-189 PO; -TRAZ-28 PO
== END ==
LOC: CARD 08:55
PROVIDERS: ATTEND Nurse Practitioner Family
DX: I25.10 Atherosclerotic heart disease of native coronary artery without angina pectoris (principal); I48.2 Chronic atrial fibrillation; I50.32 Chronic diastolic (congestive) heart failure; I25.5 Ischemic cardiomyopathy; I08.1 Rheumatic disorders of both mitral and tricuspid valves
CPT/HCPCS: 93306

== ENCOUNTER 2018-04-26 15:04 | Outpatient (CLI) | payer MEDICARE ==
[~2018-04-26] VITALS: Ht 160 cm; Wt 92.5 kg
[~2018-04-26 15:04] MED LIST changes: -ALEN70TA47 PO; +ALEN70TA5 PO; +FLUT16SP22 NSEACH
[2018-04-27] MEDS ORDERED: METO-395 PO (08:58)
[2018-04-27] MEDS ORDERED: GUAI100L13 PO (08:58)
[2018-04-27] MEDS ORDERED: FURO40TA4 PO (08:59)
[2018-04-27] MEDS ORDERED: APIX5TAB PO (08:59)
[2018-04-27] MEDS ORDERED: FESO4TAB PO (08:59)
== END 2018-04-26 16:00 | disposition home or self-care (01) ==
LOC: PREOP 15:04
PROVIDERS: ATTEND Surgery
DX: Z01.818 Encounter for other preprocedural examination (principal)

== ENCOUNTER 2018-05-02 10:17 | Day surgery (SDC) | payer OTHER, MEDICARE ==
[~2018-05-02] VITALS: Ht 160 cm; Wt 92.5 kg
[~2018-05-02 10:17] MED LIST changes: +FESO4TAB PO; +METO-395 PO
[2018-05-02] MEDS ORDERED: NS IV 500 ML 500 ML ONE (10:28)
[2018-05-02] MEDS ORDERED: fentaNYL INJECTION 100 MCG/2 ML AMP IVP ONE (10:30)
[2018-05-02] MEDS ORDERED: NS IV 500 ML 500 ML IV PRN (10:30)
[2018-05-02] MEDS ORDERED: LIDOCAINE JELLY 2% 6 ML SYRINGE MM PRN (10:30)
[2018-05-02] MEDS ORDERED: HURRICAINE EXT TUBE (BENZOCAINE) XX PRN ×2 (10:30→10:45)
[2018-05-02] MEDS ORDERED: MIDAZOLAM 2 MG/2 ML (VERSED) VIAL IVP ONE (10:30)
--- NOTE | 2018-05-02 10:37 | Conscious Sedation/ASA ---
Conscious Sedation Pre-Proced Time 10:30 ASA Score 2 For ASA 3 and 4: Consider anesthesia and medical clearance. Also, for patients with a history of failed moderate sedation consider anesthesia. Airway Lungs Heart ASA score ASA 1: a normal healthy patient ASA 2: a patient with a mild systemic disease (mid diabetes, controlled hypertension, obesity ASA 3: a patient with a severe systemic disease that limits activity (angina , COPD, prior Myocardial infarction) ASA 4: a patient with an incapacitating disease that is a constant threat to life (CHF, renal failure) ASA 5: a moribund patient not expected to survive 24 hrs. (ruptured aneurysm) ASA 6: a declared brain- patient whose organs are being harvested. For emergent operations, add the letter E after the classification Mallampati Classification Grade 2 Sedation Plan Analgesia, Amnesia, Plan communicated to team members, Discussed options with patient/fam, Discussed risks with patient/fam The patient is an appropriate candidate to undergo the planned procedure, sedation, and anesthesia. The patient immediately re-assessed prior to indication. QUINN ALCARAZ MD May 02, 2018 10:37
--- NOTE | 2018-05-02 10:38 | Progress Note-Pre Operative ---
Pre-Operative Progress Note H&P Reviewed The H&P was reviewed, patient examined and no changes noted. Date Seen by Provider: May 02, 2018 Time Seen by Provider: 10:30 Date H&P Reviewed: May 02, 2018 Time H&P Reviewed: 10:30 Pre-Operative Diagnosis: anemia, GERD QUINN ALCARAZ MD May 02, 2018 10:38
--- NOTE | 2018-05-02 10:40 | Discharge Inst-Surgical ---
D/C Lap Instructions-KIERAN Follow Up Activity as tolerated High Fiber Diet 25g or more per day Avoid Alcohol, Caffeine, Spicy [place] and Acid foods. Drink 64 fluid oz or more of fluids per day. Symptoms to Report: Fever over 101 degree F, Nausea/Vomiting If any problems/questions: Contact your physician or go to Emergency Room QUINN ALCARAZ MD May 02, 2018 10:40
[2018-05-02] MEDS ORDERED: HYDROcodone/APAP 5 MG/325 MG (LORTAB) TAB PO PRN (10:45)
[2018-05-02] MEDS ORDERED: NS IV 500 ML 500 ML IV ONE (10:45)
[2018-05-02] MEDS ORDERED: ACETAMINOPHEN 325 MG TABLET PO PRN (10:45)
[2018-05-02] MEDS ORDERED: morphine INJ 10 MG/ML 1ML (SYR OR VIAL) IV PRN (10:45)
[2018-05-02] MEDS ORDERED: ONDANSETRON 4 MG/2 ML (SDV) Z0FRAN IV PRN (10:45)
[2018-05-02 11:10] VITALS: BP 125/77
[2018-05-02] MEDS ORDERED: MIDAZOLAM 2 MG/2 ML (VERSED) VIAL ONE ×4 (11:18→11:19)
[2018-05-02] MEDS ORDERED: LIDOCAINE JELLY 2% 6 ML SYRINGE ONE (11:18)
[2018-05-02] MEDS ORDERED: fentaNYL INJECTION 100 MCG/2 ML AMP ONE ×2 (11:18→11:20)
[2018-05-02] MEDS ORDERED: HURRICAINE EXT TUBE (BENZOCAINE) ONE (11:20)
[2018-05-02] MEDS: fentaNYL INJECTION 100 MCG/2 ML AMP IV PRN ×4 (11:50→12:23)
[2018-05-02] MEDS: MIDAZOLAM 2 MG/2 ML (VERSED) VIAL IV PRN ×4 (11:51→12:24)
[2018-05-02 13:00] VITALS: BP 138/66
--- NOTE | 2018-05-02 13:14 | Progress Note-Post Operative ---
Post-Operative Progess Note Surgeon (s)/Perinatal Nurse (s) Surgeon QUINN ALCARAZ MD Perinatal Nurse: none Pre-Operative Diagnosis anemia, GERD Post-Operative Diagnosis reflux esophagitis(stage 2), mild distal esophageal stricture, small HH(1cm), mild-mod gastritis. mild chronic stage 2 ext and int hemorrhoids, mod sigmoid diverticulosis. Procedure & Operative Findings Date of Procedure 05/02/18 Procedure Performed/Findings EGD with bx and balloon dilatation. colonoscopy. Anesthesia Type cs Estimated Blood Loss Estimated blood loss (mL): minimal Specimens/Packing Specimens Removed ge jxn, antrum QUINN ALCARAZ MD May 02, 2018 13:14
[2018-05-02 13:30] VITALS: BP 109/59
[2018-05-02 13:50] VITALS: BP 109/59
--- NOTE | 2018-05-02 18:18 | OPERATIVE REPORT ---
DATE OF SERVICE: 05/02/2018 ATTENDING PRIMARY CARE PHYSICIAN: Wayne Barba DO. PREOPERATIVE DIAGNOSES: Anemia, gastroesophageal reflux disease. POSTOPERATIVE DIAGNOSES: Reflux esophagitis, stage II with a mild distal esophageal stricture; small hiatal hernia, 1 cm in size; mild gastritis. Chronic stage II external and internal hemorrhoids, moderate sigmoid diverticulosis, no active bleeding identified as well as no polyps. PROCEDURES PERFORMED: Esophagogastroduodenoscopy with biopsy and balloon dilatation. Colonoscopy. SURGEON: Quinn Mas MD. ANESTHESIA: Conscious sedation. ESTIMATED BLOOD LOSS: Minimal. FINDINGS: EGD - reflux esophagitis, stage II; mild distal esophageal stricture and Schatzki ring; small hiatal hernia, approximately 1 cm in size; mild to moderate gastritis; pylorus and duodenum appeared normal. No active bleed. Colonoscopy - chronic stage II external and internal hemorrhoids, not actively edematous nor inflamed and no bleeding. Moderate sigmoid diverticulosis with no signs of active diverticulitis. The remainder of the colon was normal. There were no polyps or any neoplasms identified. DISPOSITION: The patient tolerated the procedure well. INDICATIONS: The patient is a 77-year-old male who referred over to us for anemia as well as heme-positive stools and gastroesophageal reflux disease. He reports that he did have a colonoscopy approximately 10 years ago and feels he remembers this to be normal. He does not report any major issues with diarrhea nor constipation as well as no red blood per rectum nor any dark tarry stools. He does report that he has had a history of polyp in the past which was benign. He also does have some epigastric burning sensation on an intermittent basis. He is also on Protonix 40 mg daily. He did have lab work performed, which did show a decreasing hemoglobin from his baseline to around 10 and was also found to be positive for occult blood. DESCRIPTION OF PROCEDURE: The patient was brought to the endoscopy suite, laid in left lateral decubitus position. After adequate IV pain and sedating medications and conscious sedation anesthesia, the mouthpiece was applied. The endoscope was then placed in the mouth visualizing the pharynx and hypopharyngeal region. Vocal cords, epiglottis and vallecula identified and appeared to be normal. The endoscope was gently intubated at the esophageal opening and esophagus insufflated. The endoscope was then advanced to the first, second and third portions of the esophagus to the level of the GE junction, a reflux esophagitis stage II identified. A mild distal esophageal stricture and Schatzki ring was also identified. A biopsy was taken with forceps with visualization of good hemostasis. The endoscope was then advanced into the stomach. The endoscope was retroflexed again visualizing the Schatzki ring as well as a small hiatal hernia approximately 1 cm in size. There was a mild to moderate gastritis. No formal ulcerations, polyps or any neoplasms. A biopsy was taken of the antrum with forceps with visualization of good hemostasis. The endoscope was then advanced to the pylorus into the first and second portions of duodenum, which appeared normal with no distal obstructions. The endoscope was then slowly withdrawn. It was then decided to proceed with a balloon dilatation of the distal esophageal stricture. The balloon was placed in the stomach and pulled back to the area of the stricture. We first proceeded to 2 atmospheres of pressure or 18 mm in diameter with no resistance. We then proceeded to 4 atmospheres of pressure or 19 mmHg with mild resistance. We then proceeded to 6 atmospheres of pressure or 20 mm in circumferential diameter with mild to moderate resistance and left this in place for approximately 60 seconds. The balloon was then desufflated and removed with visualization of good hemostasis as well as no mucosal tears identified. The endoscope was then slowly withdrawn while taking a second look and suctioning of residual air with no additional findings. The patient tolerated this portion of the procedure well. We will recommend continued medical management and conservative therapy with the necessary lifestyle and diet accommodation including small and more frequent meals, avoidance of eating at night as well as head elevation while lying supine. He also needs to avoid caffeinated beverages, spicy, greasy and acidic foods and continue his Protonix. It appears that due to his hiatal hernia and reflux, he did develop mild stricture; however, he did not report to be symptomatic; however, if he does in the future, we will recommend further evaluation with repeat EGD as well as further graded dilatation. Under the same anesthesia, we then proceeded with colonoscopy portion of procedure. A digital rectal examination was performed, which revealed a mild chronic stage II external and internal hemorrhoids, not actively edematous nor inflamed and no bleeding. Normal sphincter tone was felt and there were no palpable masses. Prostate gland was palpable and appeared normal. The endoscope was then intubated to the anus, rectum was gently insufflated. The endoscope was then advanced to the valves of [place] of the rectum with no polyps or any neoplasms identified. We then proceeded through the sigmoid colon where a moderate sigmoid diverticulosis identified. There were no mucosal inflammatory changes to indicate any active diverticulitis as well as no active bleeding. The endoscope was then advanced through the remainder of the descending, transverse and ascending colon to the cecum. These segments were normal. There were no polyps or any neoplasms identified throughout the colon or rectum, as well as no active bleeding sources. The endoscope was then slowly withdrawn while taking a second look and suctioning of residual air with no additional findings. The patient tolerated the procedure well. We will recommend conservative management with a high fiber diet with at least 30 grams of fiber per day as well as significant amounts of water on a daily basis to promote at least one soft bowel movement on a daily basis. He does not need another colonoscopy for another 10 years; however, sooner if he becomes symptomatic. Job ID: [id number] DocumentID: [id number] Dictated Date: 05/02/2018 12:52:30 Structural Shop Helper Date: 05/02/2018 18:17:30 Dictated By: QUINN MAS MD
== END 2018-05-02 13:50 | disposition home or self-care (01) ==
LOC: ENDO 10:17
PROVIDERS: ATTEND Surgery
DX: K21.0 Gastro-esophageal reflux disease with esophagitis (principal); K22.2 Esophageal obstruction; K44.9 Diaphragmatic hernia without obstruction or gangrene; K29.50 Unspecified chronic gastritis without bleeding; K64.1 Second degree hemorrhoids; K57.30 Diverticulosis of large intestine without perforation or abscess without bleeding; D64.9 Anemia, unspecified; R19.5 Other fecal abnormalities; Z86.010 Personal history of colon polyps; J44.9 Chronic obstructive pulmonary disease, unspecified; E78.00 Pure hypercholesterolemia, unspecified; I10 Essential (primary) hypertension; N40.0 Benign prostatic hyperplasia without lower urinary tract symptoms; M06.9 Rheumatoid arthritis, unspecified; E55.9 Vitamin D deficiency, unspecified; Z88.0 Allergy status to penicillin; Z88.1 Allergy status to other antibiotic agents; Z95.1 Presence of aortocoronary bypass graft; Z79.82 Long term (current) use of aspirin; Z79.899 Other long term (current) drug therapy

== ENCOUNTER → 2018-05-30 | Outpatient (RCR) | payer MEDICARE | END | disposition home or self-care (01) | LOC: CR3 04-30 09:30 | PROVIDERS: ATTEND Nurse Practitioner Family | DX: Z29.8 Encounter for other specified prophylactic measures (principal) ==

== ENCOUNTER → 2018-07-04 | Outpatient (RCR) | payer OTHER, MEDICARE | END | disposition home or self-care (01) | LOC: CR3 06-04 09:00 | PROVIDERS: ATTEND Nurse Practitioner Family | DX: Z29.8 Encounter for other specified prophylactic measures (principal) ==

== ENCOUNTER → 2018-07-13 | Outpatient (CLI) | payer MEDICARE, OTHER ==
--- NOTE | 2018-07-13 10:20 | Diagnostic Imaging Report ---
PROCEDURE: CT chest without contrast. TECHNIQUE: Multiple contiguous axial images were obtained through the chest without the use of intravenous contrast. Auto Exposure Controls were utilized during the CT exam to meet ALARA standards for radiation dose reduction. INDICATION: Shortness of breath. COMPARISON: 12/19/2016. FINDINGS: Interval postsurgical changes are noted with revision of previously noted sternotomy with plate and screw fixation now present. Alignment of the sternum appears improved since the prior examination. No significant adenopathy. Scattered vascular calcifications without aneurysmal dilatation of the thoracic aorta. Prosthetic aortic valve. The heart is enlarged. No pericardial effusion. No pleural effusion. No pneumothorax. Mild bibasilar scarring and atelectasis is again noted, particularly within the left lower lobe. Chronic peribronchial thickening within the left lower lobe. 1.4 cm nodular density within the posterior aspect of the right lower lobe adjacent to a chronic ununited rib fractures again identified, having decreased in size since the prior examination. Therefore, this is felt to relate to scar. Additional 0.8 cm pulmonary nodule within the right lower lobe, series 3, image 18, is unchanged since December 2016. No additional new pulmonary nodule or pulmonary consolidation. The visualized upper abdomen is unremarkable. Several chronic ununited right-sided rib fractures with additional chronic united right-sided rib fractures. Chronic healed left-sided rib fractures. Accentuation of the normal thoracic kyphosis with scattered endplate degenerative changes. Anterior wedging and superior endplate deformity of T5 is identified appearing more prominent than the prior examination. No additional acute osseous abnormality. IMPRESSION: Anterior wedging and mild superior compression deformity of T5. This is of uncertain chronicity, though does appear to be a change since January 2017. Recommend correlation for focal pain at this location. Interval postsurgical changes of a revision of prior median sternotomy. Nodular densities within the right lower lobe are unchanged since December 2016. The 1.4 cm nodular density within posterior aspect of right lower lobe has decreased in size and is felt to relate to scar. A 0.8 cm pulmonary nodule is unchanged. Given size, a followup CT of the chest is recommended in 12 months. Cardiomegaly. Additional findings as above. Dictated by: Dictated on workstation # [id number]
== END ==
LOC: RAD 09:21
PROVIDERS: ATTEND Nurse Practitioner Family
DX: J44.9 Chronic obstructive pulmonary disease, unspecified (principal); J98.4 Other disorders of lung; M43.8X4 Other specified deforming dorsopathies, thoracic region; I51.7 Cardiomegaly; J98.11 Atelectasis; M84.48XK Pathological fracture, other site, subsequent encounter for fracture with nonunion; M47.814 Spondylosis without myelopathy or radiculopathy, thoracic region; E66.09 Other obesity due to excess calories; G47.10 Hypersomnia, unspecified; R91.1 Solitary pulmonary nodule; Z98.890 Other specified postprocedural states; Z95.2 Presence of prosthetic heart valve
CPT/HCPCS: 71250

== ENCOUNTER → 2018-07-24 | Outpatient (CLI) | payer MEDICARE | LOC: LAB 10:48 | PROVIDERS: ATTEND Nurse Practitioner Family | DX: J44.9 Chronic obstructive pulmonary disease, unspecified (principal) ==

== ENCOUNTER 2018-08-03 10:29 | Outpatient (RCR) | payer MEDICARE, OTHER ==
[~2018-08-03 10:29] MED LIST changes: -TRAZ-189 PO; +TRAZ-222 PO
== END 2018-08-17 | disposition home or self-care (01) ==
LOC: CR3 10:29
PROVIDERS: ATTEND Nurse Practitioner Family
DX: Z29.8 Encounter for other specified prophylactic measures (principal)

== ENCOUNTER → 2018-08-21 | Outpatient (CLI) | payer MEDICARE ==
[~2018-08-21] MED LIST changes: +CATHETER FLUSH 10 ML SYR IV PRN; +HEParin (CENTRAL IV FLUSH) 500 UNIT/5 ML SYR ONE
--- NOTE | 2018-08-21 12:34 | Diagnostic Imaging Report ---
EXAMINATION: GI bleeding study INDICATION: Anemia The study was performed following the administration of of 28.8 mCi of 99m technetium red blood cells. Sequential images of the abdomen were taken over a one hour period. There are no prior studies available for comparison. There is no abnormal accumulation of the radiotracer to suggest active bleeding. No other abnormality identified. IMPRESSION: Ena is no evidence for active bleeding in the gastrointestinal tract. Dictated by: Dictated on workstation # [id number]
== END ==
LOC: CARD 08:18
PROVIDERS: ATTEND Surgery
DX: D64.9 Anemia, unspecified (principal)
CPT/HCPCS: 78278

== ENCOUNTER → 2018-08-29 | Outpatient (CLI) | payer MEDICARE, OTHER ==
[~2018-08-29] MED LIST changes: -CATHETER FLUSH 10 ML SYR IV PRN; -HEParin (CENTRAL IV FLUSH) 500 UNIT/5 ML SYR ONE; +RT-ALBUTEROL SULF 2.5 MG/3 ML PRE-MIX VIAL INH ONE
== END ==
LOC: RT 10:34
PROVIDERS: ATTEND Nurse Practitioner Family
DX: J44.9 Chronic obstructive pulmonary disease, unspecified (principal); E66.09 Other obesity due to excess calories; R06.02 Shortness of breath; R09.02 Hypoxemia; G47.10 Hypersomnia, unspecified; R91.8 Other nonspecific abnormal finding of lung field; J98.4 Other disorders of lung
CPT/HCPCS: 94060; 94640; 94726; 94729

== ENCOUNTER 2018-10-22 19:34 | Outpatient (CLI) | payer MEDICARE, OTHER ==
[~2018-10-22 19:34] MED LIST changes: -BUME1TAB4 PO; +BUME1TAB8 PO; -BUME2TAB3 PO; +BUME2TAB7 PO; -RT-ALBUTEROL SULF 2.5 MG/3 ML PRE-MIX VIAL INH ONE
== END 2018-10-23 07:17 | disposition home or self-care (01) ==
LOC: SLEEP 19:34
PROVIDERS: ATTEND Nurse Practitioner Family
DX: G47.10 Hypersomnia, unspecified (principal); G47.36 Sleep related hypoventilation in conditions classified elsewhere; E66.9 Obesity, unspecified; G47.50 Parasomnia, unspecified
CPT/HCPCS: 95810

== ENCOUNTER 2018-12-11 10:26 | Outpatient (RCR) | payer MEDICARE ==
[2018-09-18 10:47] LABS: BASOPHILS % (AUTO) 0 % (0-10); EOSINOPHILS # (AUTO) 0.1 10^3/uL (0.0-0.3); EOSINOPHILS % (AUTO) 1 % (0-10); HEMATOCRIT 32 % (40-54); HEMOGLOBIN 9.8 G/DL (13.3-17.7); LYMPHOCYTES # (AUTO) 1.2 X 10^3 (1.0-4.0); LYMPHOCYTES % (AUTO) 14 % (12-44); MEAN CORPUSCULAR HGB CONC 31 G/DL (32-36); MEAN CORPUSCULAR VOLUME 92 FL (80-99); MONOCYTES # (AUTO) 0.9 X 10^3 (0.0-1.0); MONOCYTES % (AUTO) 11 % (0-12); NEUTROPHILS # (AUTO) 6.3 X 10^3 (1.8-7.8); NEUTROPHILS % (AUTO) 74 % (42-75); PLATELET COUNT 238 10^3/uL (130-400); RED CELL DISTRIBUTION WIDTH 15.5 % (10.0-14.5); WHITE BLOOD COUNT 8.5 10^3/uL (4.3-11.0)
[2018-09-18 10:48] LABS: MEAN CORPUSCULAR HEMOGLOBIN 28 PG (25-34)
[2018-09-18 11:00] LABS: ALBUMIN 4.3 GM/DL (3.2-4.5); BILIRUBIN,TOTAL 0.5 MG/DL (0.1-1.0); CALCIUM 9.5 MG/DL (8.5-10.1); CREATININE SERUM 1.29 MG/DL (0.60-1.30); POTASSIUM 4.4 MMOL/L (3.6-5.0); TOTAL PROTEIN 6.7 GM/DL (6.4-8.2)
[2018-10-16 11:15] LABS: BASOPHILS % (AUTO) 0 % (0-10); EOSINOPHILS # (AUTO) 0.1 10^3/uL (0.0-0.3); EOSINOPHILS % (AUTO) 2 % (0-10); HEMATOCRIT 36 % (40-54); HEMOGLOBIN 11.2 G/DL (13.3-17.7); LYMPHOCYTES # (AUTO) 1.1 X 10^3 (1.0-4.0); LYMPHOCYTES % (AUTO) 14 % (12-44); MEAN CORPUSCULAR HEMOGLOBIN 30 PG (25-34); MEAN CORPUSCULAR HGB CONC 32 G/DL (32-36); MEAN CORPUSCULAR VOLUME 95 FL (80-99); MEAN PLATELET VOLUME 8.8 FL (7.4-10.4); MONOCYTES # (AUTO) 0.8 X 10^3 (0.0-1.0); MONOCYTES % (AUTO) 10 % (0-12); NEUTROPHILS % (AUTO) 74 % (42-75); PLATELET COUNT 187 10^3/uL (130-400); RED CELL DISTRIBUTION WIDTH 18.8 % (10.0-14.5); WHITE BLOOD COUNT 8.1 10^3/uL (4.3-11.0)
[2018-10-16 11:36] LABS: ALANINE AMINOTRANSFERASE 17 U/L (0-55); ALBUMIN 4.2 GM/DL (3.2-4.5); ALKALINE PHOSPHATASE 62 U/L (40-136); BILIRUBIN,TOTAL 0.5 MG/DL (0.1-1.0); BUN/CREATININE RATIO 10; CALCIUM 9.7 MG/DL (8.5-10.1); CARBON DIOXIDE 26 MMOL/L (21-32); CHLORIDE 93 MMOL/L (98-107); CREATININE SERUM 1.12 MG/DL (0.60-1.30); GFR ESTIMATED > 60; GLUCOSE 160 MG/DL (70-105); POTASSIUM 4.4 MMOL/L (3.6-5.0); SODIUM 133 MMOL/L (135-145); TOTAL PROTEIN 6.5 GM/DL (6.4-8.2)
== END 2018-12-17 | disposition home or self-care (01) ==
LOC: ONC 10:26
PROVIDERS: ATTEND Internal Medicine Hematology & Oncology
DX: D50.0 Iron deficiency anemia secondary to blood loss (chronic) (principal); I48.2 Chronic atrial fibrillation; I25.10 Atherosclerotic heart disease of native coronary artery without angina pectoris; I10 Essential (primary) hypertension; I50.23 Acute on chronic systolic (congestive) heart failure; I25.5 Ischemic cardiomyopathy; J44.9 Chronic obstructive pulmonary disease, unspecified; E11.9 Type 2 diabetes mellitus without complications; E78.00 Pure hypercholesterolemia, unspecified; K21.9 Gastro-esophageal reflux disease without esophagitis; E66.9 Obesity, unspecified; Z68.37 Body mass index [BMI] 37.0-37.9, adult; Z79.01 Long term (current) use of anticoagulants; Z79.82 Long term (current) use of aspirin; Z79.899 Other long term (current) drug therapy; Z95.1 Presence of aortocoronary bypass graft; Z95.2 Presence of prosthetic heart valve
CPT/HCPCS: 36415; 80053; 82728; 83540; 84443; 85025; 99213; 99214

== ENCOUNTER → 2019-04-09 | Outpatient (CLI) | payer MEDICARE, OTHER ==
[~2019-04-09] MED LIST changes: -DIGO250T PO; +DIGO250T3 PO; -METO-370 PO; -METO-395 PO; +METO50TA7 PO; +MTP100TCR PO; +SLF500T PO; -SULF500T7 PO; -TAMS0.4C98 PO; +TMSL.4C PO; -TRAZ-222 PO; +TRZ50T PO
== END ==
LOC: EDSTATUS 12-18 12:36 → ONC 12:39
PROVIDERS: ATTEND Internal Medicine Hematology & Oncology
DX: D50.0 Iron deficiency anemia secondary to blood loss (chronic) (principal); I48.20 Chronic atrial fibrillation, unspecified; I25.10 Atherosclerotic heart disease of native coronary artery without angina pectoris; I10 Essential (primary) hypertension; I50.23 Acute on chronic systolic (congestive) heart failure; I25.5 Ischemic cardiomyopathy; J44.9 Chronic obstructive pulmonary disease, unspecified; E11.9 Type 2 diabetes mellitus without complications; E78.00 Pure hypercholesterolemia, unspecified; K21.9 Gastro-esophageal reflux disease without esophagitis; E66.9 Obesity, unspecified; Z68.37 Body mass index [BMI] 37.0-37.9, adult; Z79.01 Long term (current) use of anticoagulants; Z79.82 Long term (current) use of aspirin; Z79.899 Other long term (current) drug therapy; Z95.1 Presence of aortocoronary bypass graft; Z95.2 Presence of prosthetic heart valve
CPT/HCPCS: 99213

== ENCOUNTER → 2019-05-13 | Outpatient (CLI) | payer MEDICARE, OTHER | LOC: CARD 08:57 | PROVIDERS: ATTEND Internal Medicine Cardiovascular Disease | DX: I08.1 Rheumatic disorders of both mitral and tricuspid valves (principal); I25.10 Atherosclerotic heart disease of native coronary artery without angina pectoris; I77.89 Other specified disorders of arteries and arterioles; I11.0 Hypertensive heart disease with heart failure; I50.43 Acute on chronic combined systolic (congestive) and diastolic (congestive) heart failure; I27.21 Secondary pulmonary arterial hypertension; E78.5 Hyperlipidemia, unspecified; Z87.891 Personal history of nicotine dependence | CPT/HCPCS: 93306 ==

== ENCOUNTER → 2019-05-14 | Outpatient (CLI) | payer MEDICARE, OTHER ==
[~2019-05-14] VITALS: Ht 160 cm; Wt 96.0 kg
[~2019-05-14] MED LIST changes: +CATHETER FLUSH 10 ML SYR IV PRN; +REGADENOSON 0.4 MG/5 ML SYR (LEXISCAN) IV ONE
[2019-05-14 13:50] VITALS: BP 149/96
--- NOTE | 2019-05-14 19:27 | STRESS TEST ---
DATE OF SERVICE: 05/14/2019 RESTING AND POST REGADENOSON TECHNETIUM-99M TETROFOSMIN SPECT CT IMAGING ORDERING PHYSICIAN: Dr. Espinosa. PRIMARY PHYSICIAN: Dr. Barba. CLINICAL DIAGNOSES: Coronary artery disease, aortic stenosis, hypertension, hyperlipidemia, shortness of breath. Baseline images were carried out after injection of 9.65 mCi of technetium-99m Tetrofosmin. This was followed by 0.4 mg regadenoson and 29.4 mCi of technetium-99m Tetrofosmin for stress imaging. The electrocardiogram showed atrial fibrillation throughout the study. The electrocardiogram did not change significantly with regadenoson infusion. The patient tolerated the procedure well. Review of images at rest and following stress indicates a predominantly fixed inferoseptal perfusion defect. Left ventricular end diastolic volume is 133 mL. TID is absent (1.01). Gated images show an inferoseptal hypokinesis to akinesis. Left ventricular ejection fraction is calculated to be 39%. CONCLUSIONS: 1. Inferoseptal myocardial infarction with a small amount of susan-infarct ischemia. 2. Inferolateral hypokinesis to akinesis. 3. Impairment of global left ventricular systolic function with an ejection fraction of 39%. 4. Moderate cardiomegaly. Job ID: [id number] DocumentID: [id number] Dictated Date: 05/14/2019 18:04:50 Regulatory Affairs Analyst Date: 05/14/2019 19:26:30 Dictated By: MARCK ESPINOSA MD, MA, FACP, FACC,
== END ==
LOC: CARD 11:27
PROVIDERS: ATTEND Internal Medicine Cardiovascular Disease
DX: I11.0 Hypertensive heart disease with heart failure (principal); I51.89 Other ill-defined heart diseases; I25.10 Atherosclerotic heart disease of native coronary artery without angina pectoris; I35.0 Nonrheumatic aortic (valve) stenosis; I65.29 Occlusion and stenosis of unspecified carotid artery; E78.5 Hyperlipidemia, unspecified; I25.5 Ischemic cardiomyopathy; I34.0 Nonrheumatic mitral (valve) insufficiency; I27.21 Secondary pulmonary arterial hypertension; I50.43 Acute on chronic combined systolic (congestive) and diastolic (congestive) heart failure; Z86.79 Personal history of other diseases of the circulatory system; Z87.891 Personal history of nicotine dependence
CPT/HCPCS: 78452; 93017

== ENCOUNTER → 2019-09-19 | Outpatient (CLI) | payer MEDICARE ==
[~2019-09-19] MED LIST changes: -CATHETER FLUSH 10 ML SYR IV PRN; -REGADENOSON 0.4 MG/5 ML SYR (LEXISCAN) IV ONE; -WARF2.5T PO; -WARF5TAB PO; +WARF5TAB2 PO; +WRF2.5T PO
[2019-09-19 10:25] LABS: BASOPHILS % (AUTO) 0 % (0-10); EOSINOPHILS # (AUTO) 0.1 10^3/uL (0.0-0.3); EOSINOPHILS % (AUTO) 2 % (0-10); HEMATOCRIT 42 % (40-54); HEMOGLOBIN 13.5 G/DL (13.3-17.7); LYMPHOCYTES # (AUTO) 1.5 X 10^3 (1.0-4.0); LYMPHOCYTES % (AUTO) 20 % (12-44); MEAN CORPUSCULAR HEMOGLOBIN 31 PG (25-34); MEAN CORPUSCULAR HGB CONC 32 G/DL (32-36); MEAN CORPUSCULAR VOLUME 96 FL (80-99); MEAN PLATELET VOLUME 9.5 FL (7.4-10.4); MONOCYTES # (AUTO) 0.6 X 10^3 (0.0-1.0); MONOCYTES % (AUTO) 8 % (0-12); NEUTROPHILS # (AUTO) 5.5 X 10^3 (1.8-7.8); NEUTROPHILS % (AUTO) 71 % (42-75); PLATELET COUNT 209 10^3/uL (130-400); RED CELL DISTRIBUTION WIDTH 13.8 % (10.0-14.5); WHITE BLOOD COUNT 7.8 10^3/uL (4.3-11.0)
[2019-09-19 10:59] LABS: ALANINE AMINOTRANSFERASE 20 U/L (0-55); ALBUMIN 4.3 GM/DL (3.2-4.5); ALKALINE PHOSPHATASE 61 U/L (40-136); BILIRUBIN,TOTAL 0.5 MG/DL (0.1-1.0); BUN/CREATININE RATIO 14; CALCIUM 9.5 MG/DL (8.5-10.1); CARBON DIOXIDE 28 MMOL/L (21-32); CHLORIDE 98 MMOL/L (98-107); GFR ESTIMATED > 60; GLUCOSE 207 MG/DL (70-105); POTASSIUM 4.1 MMOL/L (3.6-5.0); SODIUM 136 MMOL/L (135-145); TOTAL PROTEIN 6.9 GM/DL (6.4-8.2)
== END ==
LOC: ONC 10:07
PROVIDERS: ATTEND Internal Medicine Hematology & Oncology
DX: D50.0 Iron deficiency anemia secondary to blood loss (chronic) (principal); I25.10 Atherosclerotic heart disease of native coronary artery without angina pectoris; I65.29 Occlusion and stenosis of unspecified carotid artery; E78.5 Hyperlipidemia, unspecified; I11.0 Hypertensive heart disease with heart failure; I50.43 Acute on chronic combined systolic (congestive) and diastolic (congestive) heart failure; I27.21 Secondary pulmonary arterial hypertension; I08.0 Rheumatic disorders of both mitral and aortic valves; I25.5 Ischemic cardiomyopathy; Z87.891 Personal history of nicotine dependence
CPT/HCPCS: 80053; 82728; 83540; 85025; G0463; 99213

== ENCOUNTER 2019-10-02 06:55 | Inpatient (IN) | payer MEDICARE ==
[2019-10-02] VITALS (19 sets, daily range): BP systolic 103–133; BP diastolic 59–108
--- OUTSIDE RECORDS SUMMARY | 2019-10-02 07:16 | XMS REPORT | Continuity of Care Document ---
[facility] Address Unknown Phone Unavailable Care Team Providers Care Mid Level Net Developer Name Role Phone [facility] Unavailable Unavailable Problems Combined list of all problems from all Department of Defense and [facility] facilities. It does not include entries that were removed or entered in error. Problem Status Onset Date Problem Type Date of Resolution Comments Source Acute asthma Active Condition Mar 27, 2016 Entered By: MADHU BRAXTON Comment: Conversion of active ICD9->ICD10 03/27/2016 [facility] Acute bronchitis Active Condition Mar 27, 2016 Entered By: MADHU BRAXTON Comment: Conversion of active ICD9->ICD10 03/27/2016 [facility] Acute bronchitis (ICD-9-CM 466.0) Active Condition [facility] Aortic valve regurgitation Active Condition Mar 27, 2016 Entered By: MADHU BRAXTON Comment: From Echocardiogram Report on 03/31/2015 [facility] Aortic valve stenosis Active Condition [facility] Asthma, unspecified (ICD-9-CM 493.90) Active Condition [facility] Atrial fibrillation Active Condition [facility] ATRIAL FIBRILLATION Active Condition [facility] Bilateral tinnitus Active Condition [facility] Carcinoma, Renal Cell * (ICD-9-CM 189.0) Active Condition [facility] Chronic shelter disease management req uired: complex needs (SNOMED CT 289683429) Active Condition [facility] Chronic obstructive airway disease Active Condition [facility] Chronic obstructive lung disease Active Condition [facility] Chronic Obstructive Pulmonary Disease * (ICD-9-CM 496. 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 mi 1971 [facility] Coronary heart disease Active Condition [facility] Diabetes * (ICD-9-CM 250.00) Active Condition [facility] Elevated Prostate Specific Antigen (PSA) (ICD-9-CM 790 .93) Active Condition [facility] Epistaxis Active Condition Mar 27, 2016 Entered By: MADHU BRAXTON Comment: Conversion of active ICD9->ICD10 03/27/2016 [facility] Epistaxis (SNOMED CT 21126133) Active Condition [facility] Excessive sweating Active Condition Mar 27, 2016 Entered By: MADHU BRAXTON Comment: Conversion of active ICD9->ICD10 03/27/2016 [facility] Excessive sweating (SNOMED CT 58482953) Active Condition [facility] Exogenous hyperlipemia Active Condition [facility] Gastroesophageal Reflux Disorder * (ICD-9-CM 530.81) Active Condition [facility] Gouty Arthropathy, unspecified (ICD-9-CM 274.00) Active Condition [facility] H/O: anticoagulant therapy Active Condition [facility] HF - Heart failure Active Condition [facility] High risk drug monitoring status Active Condition [facility] Hyperlipidemia * (ICD-9-CM 272.4) Active Condition [facility] Hypertrophy (Benign) of Prostate without Urinary obstruction (ICD-9-CM 600.00) Active Condition [facility] Ischemic heart disease Active Condition Mar 27, 2016 Entered By: MADHU BRAXTON Comment: Conversion of active ICD9->ICD10 03/27/2016 [facility] Malignant tumor of kidney Active Condition Mar 27, 2016 Entered By: MADHU BRAXTON Comment: Conversion of active ICD9- >ICD10 03/27/2016 [facility] Mitral valve regurgitation Active Condition Mar 27, 2016 Entered By: MADHU BRAXTON Comment: From Echocardiogram Report on 03/31/2015 [facility] Obesity Active Condition Mar 27, 2016 Entered By: MADHU BRAXTON Comment: Conversion of active ICD9->ICD10 03/27/2016 [facility] Obesity * (ICD-9-CM 278.00) Active Condition [facility] Osteoporosis Active Condition Mar 27, 2016 Entered By: MADHU BRAXTON Comment: Conversion of active ICD9->ICD10 03/27/2016 [facility] Osteoporosis * (ICD-9-CM 733.00) Active Condition [facility] Personal History of Colonic Polyps (ICD-9-CM V12.72) Active Condition 2009 Entered By: SANDRITA TORRES Comment: per colonoscopy [facility] Rheumatoid arthritis (SNOMED CT 32259032) Active Condition [facility] Sensorineural hearing loss, bilateral Active Condition [facility] Systolic heart failure Active Condition Mar 27, 2016 Entered By: MADHU BRAXTON Comment: From Echocardiogram Report on 03/31/2015 [facility] THERAPEUTIC DRUG MONITORING Active Condition [facility] Type 2 diabetes mellitus Active Condition Mar 27, 2016 Entered By: MADHU BRAXTON Comment: Conversion of active ICD9- >ICD10 03/27/2016 [facility] Ventricular hypertrophy Active Condition Mar 27, 2016 Entered By: MADHU BRAXTON Comment: From Echocardiogram Report on 03/31/2015 [facility] Arthralgia * (ICD-9-CM 719.40) Inactive Condition 03/15/2011 2009 Entered By: SANDRITA TORRES Comment: elbows/knees [facility] Atrial fibrillation ([facility] [id number]) - Uns pecified atrial fibrillation (ICD-10-CM Inactive Condition 04/10/2015 [facility] Dyspnea * (ICD-9-CM 786.05/786.09) Inactive Condition 1 [facility] Epistaxis * (ICD-9-CM 784.7) Inactive Condition 03/15/2011 [facility] H/O: anticoagulant therapy ([facility] [id number]) - 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 designer (current) use of anticoag Inactive Condition 04/10/2015 [facility] Health Examination of Defined Subpopulat ions (ICD-9-CM V70.5) Inactive Condition 03/15/2011 [facility] Hearing loss * (ICD-9-CM 389.9) In active Condition 1 [facility] Hemorrhoids * (ICD-9-CM 455.6) Inactive Condition 03/15/2011 2009 Entered By: SANDRITA TORRES Comment: 1972 [facility] High risk drug monitoring status ([facility] [id number]) - Encounter for therapeutic [place] Inactive Condition 04/10/2015 [facility] Hypersensitivity * (ICD-9-CM 995.3) Inactive Condition 1 2009 Entered By: SANDRITA TORRES Comment: pcn-local swelling, keflex-hives [facility] Male erectile disorder (ICD-9-CM 302.72/607.84) Inactive Condition 1 [facility] Obesity * (ICD-9-CM 278.00) Inactive Condition 03/15/2011 [facility] Personal History of Congestive Heart Neo lure (ICD-9-CM V12.59) Inactive Condition 03/15/2011 [facility] Radiology result abnormal Inactive Condition 03/15/2011 [facility] Renal Cyst (ICD-9-CM 753.10) Inactive Condition 03/15/2011 [facility] Screening for other specified conditions (ICD-9-CM V82 .89) Inactive Condition 03/15/2011 2009 Entered By: SANDRITA TORRES Comment: ptsd [facility] Subjective tinnitus (ICD-9-CM 388.31) Inactive Condition 1 [facility] ICD-10-CM Z23. Encounter for immunizatio n with Provider Comments: Immunization Encounter active Diagnosis [facility] ICD-10-CM J44.9 Chronic obstructive pulm onary disease, unspecified with Provider Comments: Chronic obstructive lung disease (SCT [id number]) active Diagnosis [facility] ICD-10-CM Z71.89 Other specified extension course counselor ing with Provider Comments: Other specified counseling active Diagnosis [facility] Medications Combined list of all outpatient medications recorded within the last 15 months b y all Department of Defense and [facility] facilities, and also all patien t-reported medications. Medication Details Route Status Patient Instructions Prescription Expires Prescript ion Number Last Dispense Date Ordering Pr ovider Order Date Source ACETAMINOPHEN 500MG TAB TAKE O NE TABLET BY MOUTH TWO TIMES A DAY NEEDED ACTIVE ELIZAEBT CHENG 11/05/2015 [facility] ACETAMINOPHEN 650MG TAB,SA ENRRIQUE E ONE TABLET BY MOUTH EVERY 6 HOURS NEEDED ACTIVE MAGDA HAGER 02/19/2010 [facility] ALBUTEROL SO4 90MCG/ACTUAT (CFC-F) INHL,ORAL,8.5GM INHALE 2 PUFFS BY MOUTH PRN ACTIVE RAFFI ENGLISH 07/08/2009 [facility] APIXABAN 5MG TAB TAKE ONE TABL ET BY MOUTH TWO TIMES A DAY ACTIVE NOY BARR 08/28/2017 [facility] ASPIRIN 81MG TAB,CHEWABLE CHEW ONE TABLET BY MOUTH AT BEDTIME ACTIVE GARTH MCNEAL 02/28/2012 [facility] BISACODYL 5MG TAB,EC TAKE ONE TABLET BY MOUTH ONCE A DAY NEEDED ACTIVE NOY BARR 08/28/2017 [facility] CALCIUM 600MG ( CARBONATE)/VITAMIN D 200UNT TAB TAKE ONE TABLET BY MOUTH TWICE A DAY ACTIVE MADDI MENG 11/01/2012 [facility] CALCIUM ACETATE CAP,ORAL TAKE BY MOUTH TWO TIMES A DAY ACTIVE WOLF PATEL 11/12/2015 [facility] CHOLECALCIFEROL 1000UNT TAB TA KE ONE TABLET BY MOUTH ONCE A DAY ACTIVE NOY BARR 08/28/2017 [facility] CHOLECALCIFEROL 1000UNT TAB TA KE ONE TABLET BY MOUTH TWICE A DAY ACTIVE DARRYL MENG 11/01/2012 [facility] COENZYME Q10 CAP/TAB TAKE 1 CA P/TAB BY MOUTH EVERY DAY ACTIVE QUITA ENG 08/10/2010 [facility] COENZYME Q10 CAP/TAB TAKE BY MOUTH EVERY MORNING ACTIVE WOLF PATEL 11/12/2015 [facility] FESOTERODINE FUMARATE 4MG TAB,SA TAKE ONE TABLET BY MOUTH ONCE A DAY ACTIVE NOY BARR 08/28/2017 [facility] FISH OIL (NON-VA MED) CAP/TAB TAKE 2000MG BY MOUTH EVERY MORNING ACTIVE RAFFI ENGLISH 07/08/2009 [facility] GUAIFENESIN 100MG/5ML (SF & AF) LIQUID TAKE 1 TEASPOONFUL BY MOUTH EVERY MORNING ACTIVE KARAN PATEL 11/12/2015 [facility] MULTIVITAMINS CAP/TAB TAKE ONE TABLET BY MOUTH EVERY MORNING ACTIVE MAGDA HAGER 02/19/2010 [facility] TRAZODONE HCL 50MG TAB TAKE 1. 5 TABLETS BY MOUTH AT BEDTIME ACTIVE NOY BARR 08/28/2017 [facility] Allergies, Adverse Reactions, Alerts Combined list of all allergies from all Department of Defense and Veterans Affairs facilities. It does not include entries that were removed or entered in error. Substance Category R eaction Severity Reaction type Status Date Reported Comments Source CIPROFLOXACIN Propensity to advers e reactions to drug (disorder) Urticaria Propensity to adverse reactions to drug (disorder) active 03/14/2011 [facility] CIPROFLOXACIN Propensity to advers e reactions to drug (disorder) Asthma finding, Eruption Propensity to adverse reactions to drug (disorder) active 11/05/2015 [facility] 15 KEFLEX Propensity to adverse react ions to drug (disorder) Urticaria Propensit y to adverse reactions to drug (disorder) active 2009 [facility] KEFLEX Propensity to adverse react ions to drug (disorder) Asthma finding, Eruption Propensity to adverse reactions to drug (disorder) active 11/05/2015 [facility] VISN 15 METHOTREXATE Propensity to adverse reactions to drug (disorder) Propensity to adverse reactions to drug (disorder) active 01/03/2013 [facility] METHOTREXATE Propensity to adverse reactions to drug (disorder) Eruption, Asthma finding Propensity to adverse reactions to drug (disorder) active 11/05/2015 [facility] VISN 15 PENICILLIN Propensity to adverse r eactions to drug (disorder) Swelling Propensity to adverse reactions to drug (disorder) active 2009 [facility] PENICILLIN Propensity to adverse r eactions to drug (disorder) Eruption, Asthma finding Propensity to adverse reactions to drug (disorder) active 11/05/2015 [facility] VISN 15 SEASONAL ALLERGIES Propensity to a dverse reactions (disorder) Itching of eye, Rhinitis Propensity to adverse reactions (disorder) active 2009 [facility] Immunizations Combined list of: 1) all immunizations on record at all [facility] ies, and 2) all available immunizations on record at Department of Defense (Do D) facilities. Some immunizations on record at [facility] may not be included. Immunization Series Date Given Administered By Site Reaction Lot Number CVX Code Drug Carton Stamper Status Comments Source ZOSTER RECOMBINANT 2 01/31/2019 187 completed [facility] INFLUENZA, TRIVALENT, ADJUVANTED 11/29/2018 168 completed [facility] ZOSTER RECOMBINANT 1 11/29/2018 187 completed [facility] INFLUENZA, UNSPECIFIED FORMULATION 12/27/2017 88 completed [facility], VISN 15 INFLUENZA, UNSPECIFIED FORMULATION 12/28/2016 88 completed [facility], [facility] 15 INFLUENZA, UNSPECIFIED FORMULATION 12/19/2016 88 completed [facility] PNEUMOCOCCAL POLYSACCHARIDE PPV23 11/05/2015 33 completed [facility] TDAP 2014 115 completed [facility] INFLUENZA, UNSPECIFIED FORMULATION 12/24/2014 88 completed [facility] INFLUENZA, UNSPECIFIED FORMULATION 12/31/2013 NONE 88 completed [facility] PNEUMOCOCCAL CONJUGATE PCV 13 12/31/2013 133 completed [facility] INFLUENZA, UNSPECIFIED FORMULATION 11/30/2012 NONE 88 completed [facility] INFLUENZA, UNSPECIFIED FORMULATION 12/05/2011 NONE 88 completed [facility] INFLUENZA, UNSPECIFIED FORMULATION 12/08/2010 NONE 88 completed [facility] INFLUENZA, UNSPECIFIED FORMULATION 12/25/2009 NONE 88 completed [facility] NOVEL [id number] 12/25/2009 127 completed [facility] INFLUENZA, UNSPECIFIED FORMULATION 11/18/2008 88 completed [facility] PNEUMOCOCCAL, UNSPECIFIED FORMULATION 11/19/2007 109 completed [facility] TETANUS TOXOID, UNSPECIFIED FORMULATION 03/20/2005 112 completed [facility] Results Combined list of recent chemistry, hematology and other laboratory results going back no more than 15 months from the Department of Defense and Veterans Affairs facilities. Order Name Results Value Reference Range Date Interpretation Specimen Comments Source CBC & DIFF LEUKOCYTES [#/VOLUM E] IN BLOOD BY AUTOMATED COUNT 8.7 K/cmm 3.60 - 11.20 11/29/2018 Specimen Type: BLOOD No comment entered. [facility] CBC & DIFF ERYTHROCYTES [#/VOL UME] IN BLOOD BY AUTOMATED COUNT 3.96 M/ul 4.1 - 5.7 11/29/2018 L Specimen Type: BLOOD No comment entered. [facility] CBC & DIFF HEMOGLOBIN [MASS/VOLUME] IN BLOOD 12.4 g/dl 13.1 - 16.8 11/29/2018 L Specimen Type: BLOOD No comment entered. [facility] CBC & DIFF HEMATOCRIT [VOLUME FRACTION] OF BLOOD BY AUTOMATED COUNT 37.3 % 38.2 - 48.4 11/29/2018 L Specimen Type: BLOOD No comment entered. [facility] & DIFF MCV [ENTITIC VOLUME] BY A UTOMATED COUNT 94.2 fl 80.1 - 98.5 11/29/2018 Specimen Type: BLOOD No comment entered. [facility] CBC & DIFF MCH [ENTITIC MASS] BY AUT OMATED COUNT 31.3 pg 27.0 - 34.0 11/29/2018 Specimen T ype: BLOOD No comment entered. [facility] CBC & DIFF MCHC [MASS/VOLUME] BY AUT OMATED COUNT 33.2 g/dl 33.0 - 36.0 11/29/2018 Specimen Type: BLOOD No comment entered. [facility] CBC & DIFF PLATELETS [#/VOLUME ] IN BLOOD BY AUTOMATED COUNT 196 K/cmm 150 - 400 11/29/2018 Specimen Type: BLOOD No comment entered. [facility] CBC & DIFF PLATELET MEAN VOLUM E [ENTITIC VOLUME] IN BLOOD BY AUTOMATED COUNT 9.6 fl 7.5 - 11.2 11/29/2018 Specimen Type: BLOOD No comment entered. [facility] CBC & DIFF ERYTHROCYTE DISTRIB UTION WIDTH [RATIO] BY AUTOMATED COUNT 15.1 % 11.8 - 15.1 11/29/2018 Specimen Type: BLOOD No comment entered. [facility] CBC & DIFF LYMPHOCYTES/100 RICHARD KOCYTES IN BLOOD BY AUTOMATED COUNT 16.6 % 11/29/2018 Specimen Type: BLOOD No comment entered. [facility] CBC & DIFF NEUTROPHILS/100 RICHARD KOCYTES IN BLOOD BY AUTOMATED COUNT 71.2 % 11/29/2018 Specimen Type: BLOOD No comment entered. [facility] CBC & DIFF MONOCYTES/100 LEUKO CYTES IN BLOOD BY AUTOMATED COUNT 9.9 % 11/29/2018 Specimen Type: BLOOD No comment entered. [facility] CBC & DIFF MONOCYTES [#/VOLUME ] IN BLOOD BY AUTOMATED COUNT 0.9 K/cmm 0.19 - 0.80 11/29/2018 H Specimen Type: BLOOD No comment entered. [facility] CBC & DIFF NEUTROPHILS [#/VOLU ME] IN BLOOD BY AUTOMATED COUNT 6.2 K/cmm 2.10 - 8.00 11/29/2018 Specimen Type: BLOOD No comment entered. [facility] CBC & DIFF EOSINOPHILS [#/VOLU ME] IN BLOOD BY AUTOMATED COUNT 0.1 K/cmm 0.00 - 0.60 11/29/2018 Specimen Type: BLOOD No comment entered. [facility] CBC & DIFF BASOPHILS [#/VOLUME ] IN BLOOD BY AUTOMATED COUNT 0.1 K/cmm 0.00 - 0.20 11/29/2018 Specimen Type: BLOOD No comment entered. [facility] CBC & DIFF EOSINOPHILS/100 RICHARD KOCYTES IN BLOOD BY AUTOMATED COUNT 1.4 % 11/29/2018 Specimen Type: BLOOD No comment entered. [facility] CBC & DIFF BASOPHILS/100 LEUKO CYTES IN BLOOD BY AUTOMATED COUNT 0.7 % 11/29/2018 Specimen Type: BLOOD No comment entered. [facility] CBC & DIFF LYMPHOCYTES [#/VOLU ME] IN BLOOD BY AUTOMATED COUNT 1.4 K/cmm 0.77 - 4.50 11/29/2018 Specimen Type: BLOOD No comment entered. [facility] CBC & DIFF IMMATURE GRANULOCYT ES [#/VOLUME] IN BLOOD BY AUTOMATED COUNT 0.02 K/cmm 0.00 - 0.05 11/29/2018 Specimen Type: BLOOD No comment entered. [facility] CBC & DIFF IMMATURE GRANULOCYT ES/100 LEUKOCYTES IN BLOOD BY AUTOMATED COUNT 0.2 % 11/29/2018 Specimen Type: BLOOD No comment entered. [facility] COMPREHENSIVE METABOLIC PANEL CREATININE [MASS/VOLUME] IN SERUM OR PLASMA 0.99 mg/dL 0.7 - 1.3 11/29/2018 Specimen Type: PLASMA Comment: For eGFR: eGFR results >60 are imprecise. Many variables affect the calculated result. Interpretation of eGFR results >60 must be monitored over time. [facility] COMPREHENSIVE METABOLIC PANEL UREA NITROGEN [MASS/VOLUME] IN SERUM OR PLASMA 16 mg/dL 9 - 25 11/29/2018 Specimen Type: PLASMA Comment: For eGFR: eGFR results >60 are imprecise. Many variables affect the calculated result. Interpretation of eGFR results >60 must be monitored over time. [facility] COMPREHENSIVE METABOLIC PANEL GLUCOSE [MASS/VOLUME] IN SERUM OR PLASMA 168 mg/dL 72 - 99 11/29/2018 H Specimen Type: PLASMA Comment: For eGFR: eGFR results >60 are imprecise. Many variables affect the calculated result. Interpretation of eGFR results >60 must be monitored over time. [facility] COMPREHENSIVE METABOLIC PANEL SODIUM [MOLES/VOLUME] IN SERUM OR PLASMA 134 mEq/L 136 - 145 11/29/2018 L Specimen Type: PLASMA Comment: For eGFR: eGFR results >60 are imprecise. Many variables affect the calculated result. Interpretation of eGFR results >60 must be monitored over time. [facility] COMPREHENSIVE METABOLIC PANEL POTASSIUM [MOLES/VOLUME] IN SERUM OR PLASMA 3.9 mEq/L 3.5 - 5.0 11/29/2018 Specimen Type: PLASMA Comment: For eGFR: eGFR results >60 are imprecise. Many variables affect the calculated result. Interpretation of eGFR results >60 must be monitored over time. [facility] COMPREHENSIVE METABOLIC PANEL CALCIUM [MASS/VOLUME] IN SERUM OR PLASMA 9.3 mg/dL 8.4 - 10.4 11/29/2018 Specimen Type: PLASMA Comment: For eGFR: eGFR results >60 are imprecise. Many variables affect the calculated result. Interpretation of eGFR results >60 must be monitored over time. [facility] COMPREHENSIVE METABOLIC PANEL PROTEIN [MASS/VOLUME] IN SERUM OR PLASMA 6.9 g/dL 6.0 - 8.6 11/29/2018 Specimen Type: PLASMA Comment: For eGFR: eGFR results >60 are imprecise. Many variables affect the calculated result. Interpretation of eGFR results >60 must be monitored over time. [facility] COMPREHENSIVE METABOLIC PANEL ALBUMIN [MASS/VOLUME] IN SERUM OR PLASMA 4.3 g/dl 3.4 - 5.0 11/29/2018 Specimen Type: PLASMA Comment: For eGFR: eGFR results >60 are imprecise. Many variables affect the calculated result. Interpretation of eGFR results >60 must be monitored over time. [facility] [employer]dat METABOLIC PANEL BILIRUBIN.TOTAL [MASS/VOLUME] IN SERUM OR PLASMA 0.5 mg/dL 0.2 - 1.2 11/29/2018 Specimen Type: PLASMA Comment: For eGFR: eGFR results >60 are imprecise. Many variables affect the calculated result. Interpretation of eGFR results >60 must be monitored over time. [facility] COMPREHENSIVE METABOLIC PANEL ASPARTATE AMINOTRANSFERASE [ENZYMATIC ACTIVITY/VOLUME] IN SERUM OR PLASMA 21 U/L 5 - 34 11/29/2018 Specimen Type: PLASMA Comment: For eGFR: eGFR results >60 are imprecise. Many variables affect the calculated result. Interpretation of eGFR results >60 must be monitored over time. [facility] COMPREHENSIVE METABOLIC PANEL ALANINE AMINOTRANSFERASE [ENZYMATIC ACTIVITY/VOLUME] IN SERUM OR PLASMA 16 U/L 8 - 40 11/29/2018 Specimen Type: PLASMA Comment: For eGFR: eGFR results >60 are imprecise. Many variables affect the calculated result. Interpretation of eGFR results >60 must be monitored over time. [facility] COMPREHENSIVE METABOLIC PANEL ANION GAP IN SERUM OR PLASMA 9.3 2018 Specimen T ype: PLASMA Comment: For eGFR: eGFR results >60 are imprecise. Many variables affect the calculated result. Interpretation of eGFR results >60 must be monitored over time. [facility] COMPREHENSIVE METABOLIC PANEL CHLORIDE [MOLES/VOLUME] IN SERUM OR PLASMA 96 mEq/L 98 - 107 11/29/2018 L Specimen Type: PLASMA Comment: For eGFR: eGFR results >60 are imprecise. Many variables affect the calculated result. Interpretation of eGFR results >60 must be monitored over time. [facility] COMPREHENSIVE METABOLIC PANEL CARBON DIOXIDE, TOTAL [MOLES/VOLUME] IN SERUM OR PLASMA 28.7 mEq/L 22 - 31 11/29/2018 Specimen Type: PLASMA Comment: For eGFR: eGFR results >60 are imprecise. Many variables affect the calculated result. Interpretation of eGFR results >60 must be monitored over time. [facility] COMPREHENSIVE METABOLIC PANEL ALKALINE PHOSPHATASE [ENZYMATIC ACTIVITY/VOLUME] IN SERUM OR PLASMA 61 U/L 40 - 150 11/29/2018 Specimen Type: PLASMA Comment: For eGFR: eGFR results >60 are imprecise. Many variables affect the calculated result. Interpretation of eGFR results >60 must be monitored over time. [facility] COMPREHENSIVE METABOLIC PANEL GLOMERULAR FILTRATION RATE/1.73 SQ M.PREDICTED [VOLUME RATE/AREA] IN SERUM OR PLASMA BY CREATININE- BASED FORMULA (MDRD) >60 11/29/2018 Specimen Type: PLASMA Comment: For eGFR: eGFR results >60 are imprecise. Many variables affect the calculated result. Interpretation of eGFR results >60 must be monitored over time. [facility] LIPID PROFILE(HDL,TRIG,CHOL,LDL) CHOLESTEROL [MASS/VOLUME] IN SERUM OR PLASMA 171 mg/dL 0 - 200 11/29/2018 Specimen Type: PLASMA Comment: For eGFR: eGFR results >60 are imprecise. Many variables affect the calculated result. Interpretation of eGFR results >60 must be monitored over time. [facility] LIPID PROFILE(HDL,TRIG,CHOL,LDL) TRIGLYCERIDE [MASS/VOLUME] IN SERUM OR PLASMA 98 mg/dL 0 - 150 11/29/2018 Specimen Type: PLASMA Comment: For eGFR: eGFR results >60 are imprecise. Many variables affect the calculated result. Interpretation of eGFR results >60 must be monitored over time. [facility] LIPID PROFILE(HDL,TRIG,CHOL,LDL) CHOLESTEROL IN HDL [MASS/VOLUME] IN SERUM OR PLASMA 73 mg/dL 11/29/2018 Specimen Type: PLASMA Comment: For eGFR: eGFR results >60 are imprecise. Many variables affect the calculated result. Interpretation of eGFR results >60 must be monitored over time. [facility] LIPID PROFILE(HDL,TRIG,CHOL,LDL) CHOLESTEROL IN LDL [MASS/VOLUME] IN SERUM OR PLASMA BY CALCULATION 78 mg/dL 0 - 99.9 11/29/2018 Specimen Type: PLASMA Comment: For eGFR: eGFR results >60 are imprecise. Many variables affect the calculated result. Interpretation of eGFR results >60 must be monitored over time. [facility] TSH THYROTROPIN [UNITS/VOLUME] IN SE RUM OR PLASMA 4.18 uIU/mL 0.47 - 5.00 11/29/2018 Specimen Type: SERUM No comment entered. [facility] PROSTATIC SPECIFIC ANTIGEN(TOTAL) PROSTATE SPECIFIC AG [MASS/VOLUME] IN SERUM OR PLASMA 1.8 ng/mL 0 - 4 11/29/2018 Specimen Type: SERUM No comment entered. [facility] VITAMIN D (25-OH) CALCIDIOL [M ASS/VOLUME] IN SERUM OR PLASMA 31.6 ng/mL 30.0 - 96.0 11/29/2018 Specimen Type: SERUM No comment entered. [facility] Vital Signs Combined list of inpatient and outpatient Vital Signs from all [facility] and/or [facility] medical facilities within the last 15 months. The included entries comply with the patient's data sharing authorizations. Vital Sign Value Date Comments Source SYSTOLIC BLOOD PRESSURE 129mm[ Hg] 11/29/2018 09:51:08 [facility] DIASTOLIC BLOOD PRESSURE 69mm[ Hg] 11/29/2018 09:51:08 [facility] PULSE OXIMETRY 94% 11/29/2018 09:51:08 [facility] WEIGHT 213.8[lb_av] 11/29/2018 09:51:08 [facility] BMI 38kg/m2 11/29/2018 09:51:08 [facility] HEIGHT 63[in_us] 11/29/2018 09:51:08 [facility] TEMPERATURE 97.5[degF] 11/29/2018 09:51:08 [facility] PULSE 74/min 11/29/2018 09:51:08 [facility] RESPIRATION 18/min 11/29/2018 09:51:08 [facility] Encounters Combined list of encounters at [facility] and/or [facility] [facility] for the last 15 months. Not all VA inpatient encounters are included. The incl uded entries comply with the patient's data sharing authorizations. Location Location Details Encounter Type Encounter Number Reason For Visit Attending Provider ADM Date DC Date Status Disposition Source Outpatient Encounter [id number] _MAPID:e [id number] ELIZABET CHENG 06/25/2018 [facility] Encounter [id number] ICD-10 -CM Z71.89 Other specified counseling with Provider Comments: Other specified counseling OSTEYULIYA MCDERMOTT S 08/16/2018 [facility] Outpatient Encounter [id number] _MAPID:[id number] 08/17/2018 [facility] Outpatient Encounter [id number] ICD-10 -CM Z71.89 Other specified counseling with Provider Comments: Other specified counseling OSTEBALDEMARTARSHADAYRONA S 08/17/2018 [facility] Outpatient Encounter [id number] _MAPID:[id number] 08/21/2018 [facility] Outpatient Encounter [id number] _MAPID:[id number] 09/25/2018 [facility] Outpatient Encounter [id number] _MAPID:e [id number] [facility] [id number] _MAPID:e [id number] 09/27/[facility] Encounter [id number] _MAPID:e [id number] 10/05/[facility] [id number] ICD-10 -CM J44.9 Chronic obstructive pulmonary disease, unspecified with Provider Comments: Chronic obstructive lung disease ([facility] [id number]) ELIZABET CHENG Dayami 11/29/2018 [facility] Outpatient Encounter [id number] _MAPID:e ndReason9 12/10/2018 [facility] 15 Outpatient Encounter [id number] _MAPID:e ndReason8 12/14/2018 [facility] Outpatient Encounter [id number] _MAPID:e ndReason7 12/15/2018 [facility] Outpatient Encounter [id number] _MAPID:e ndReason6 12/20/2018 [facility] Outpatient Encounter [id number] _MAPID :endReason5 01/14/[facility] Out[facility] Encounter [id number] _MAPID :endReason4 01/14/2019 [facility] Outpatient Encounter [id number] ICD-10 -CM Z23. Encounter for immunization with Provider Comments: Immunization Encounter EMMA PATEL 01/31/2019 [facility] Outpatient Encounter [id number] _MAPID:e ndReason2 03/07/2019 [facility] Outpatient Encounter [id number] _MAPID :endReason1 03/27/2019 [facility] Procedures No Data Provided for This Section Social History Combined list of available smoking, tobacco, and other social history on record at Department of Defense and/or Veterans Affairs facilities. The included entrie s comply with the patient's data sharing authorizations. Social History Type Response Date Comment Source Tobacco smoking status CAIS VA-TOBACCO QUIT 15 YRS OR MORE 06/13/2018 [facility] History of tobacco use VA-TO BACCO FORMER USER 06/13/2018 [facility] History of tobacco use CURRE NT NON-SMOKER 08/31/2017 [facility] History of tobacco use NON-T OBACCO USER 08/31/2017 [facility] History of tobacco use DECLI MARLENA SMOKING CESSATION 08/31/2017 [facility] History of tobacco use NON-T OBACCO USER 08/26/2017 [facility] History of tobacco use NON-T OBACCO USER 11/15/2016 [facility] History of tobacco use NON-T OBACCO USER 11/05/2015 [facility] History of tobacco use QUIT TOBACCO >7 YEARS AGO 09/08/2015 [facility] History of tobacco use QUIT TOBACCO >7 YEARS AGO INPT 03/30/2015 [facility] History of tobacco use QUIT TOBACCO >7 YEARS AGO 10/23/2014 [facility] History of tobacco use QUIT TOBACCO >7 YEARS AGO INPT 06/01/2014 [facility] History of tobacco use QUIT TOBACCO >7 YEARS AGO 10/04/2013 [facility] History of tobacco use QUIT TOBACCO >7 YEARS AGO 12/07/2012 [facility] History of tobacco use QUIT TOBACCO >7 YEARS AGO 02/28/2012 [facility] History of tobacco use LIFET SELINA NON-TOBACCO USER 03/28/2011 [facility] History of tobacco use QUIT TOBACCO >7 YEARS AGO INPT 03/14/2011 [facility] History of tobacco use LIFET SELINA NON-USER OF TOBACCO 05/12/2010 [facility] History of tobacco use LIFET SELINA NON-USER OF TOBACCO INPT 10/12/2009 [facility] History of tobacco use QUIT TOBACCO >7 YEARS AGO INPT 2009 [facility] History of tobacco use QUIT TOBACCO >7 YEARS AGO 2009 [facility] Assessment and Plan No Data Provided for This Section Plan of Care Date/Time Care Activity Care Activity Detail Facility 11/29/2019 AMBULATORY - MEDICI NE AMBULATORY - MEDICINE [facility] Family History No Data Provided for This Section Advance Directives List of completed, amended, or rescinded Advance Directives on record at [facility]. An actual copy of the Directive is not included. Date Advance Directive Provider Source 10/13/2017 ADVANCE DIRECTIVE DELVIN VUONG [facility] 04/01/2010 ADMINISTRATIVE NOTE DAY CLEMENTS [facility] 12/16/2009 ADMINISTRATIVE NOTE HARDEEP YODER [facility] 07/20/2009 ADVANCE DIRECTIVE NICOLASA PATEL [facility] 07/20/2009 ADVANCE DIRECTIVE BUTCH MAJOR [facility] 07/11/2009 ADVANCE DIRECTIVE D [facility] 06/17/2009 ADMINISTRATIVE NOTE MYRA BANDA [facility] Functional Status No Data Provided for This Section
--- OUTSIDE RECORDS SUMMARY | 2019-10-02 07:21 | XMS REPORT | Encounter Summary ---
Author Author Department of [facility] rs, ROSCOE Organization Department of [facility] Address [address] [place] [address] Phone Unavailable Care Team Providers Care School Supervisor Name Role Phone ELIZABET CHENG PCP Unavailable Insurance Providers: All historical and current Section Date Range: From patient's date of to the date document was create d. This section includes the names of all active insurance providers for the ranjan bunn Insurance Provider Type of Coverage Plan Name Start of Policy Co verage End of Policy Coverage Group Number Member ID Insurance Provider's Telephone N umber Policy Clark's Name Patient's Relationship to Policy Clark AETNA [facility] ([facility]) MEDICARE ADVANTAGE [facility] ([facility]) Mar 20, 2019 00 [phone] [id number] BRIAN CORDERO PATIENT COVENTRY ADVANTRA [facility] (WN) MEDICARE ADVANTAGE [facility] ([facility]) Mar 20 8 [id number] [phone] BRIAN CORDERO JR PATIENT MEDICARE (WN) MEDICARE (M) PART B Sep 17, 2008 PART B [phone] BRIAN CORDERO JR PATIENT MEDICARE (WN) MEDICARE (M) PART A Jun 18, 2005 PART A [id number] [phone] BRIAN CORDERO JR PATIENT MEDICARE PART D (WN) MEDICARE (M) PART D Nov 19, 2015 PART D [id number] BRIAN CORDERO JR PATIENT MEDICARE PART D (WNR) MEDICARE (M) PART D Sep 17, 2009 PART D [id number] BRIAN CORDERO JR PATIENT [facility] MCR (WNR) MEDICARE ADVANTAGE [facility] (WNR) Sep 17, 2009 [facility] [id number] BRIAN CORDERO JR PATIENT Selected Encounter This section includes the information on record at [place] for the Encounter. Date/Time Encounter Type Encounter Description Reason Provider Source Jan 31, 2019 02:00 PM Outpatient Encounter PRIMARY CARE/MEDICINE ICD-10-CM Z23. Encounter for immunization with Provider Comments: Immunization Encounter EMMA PATEL [facility] IHE Encounter Template Text not used by VA Assessments - Encounter Diagnoses This section includes the primary and secondary diag noses documented for the Encounter. Date/Time Primary/Secondary Diagnosis Diagnosis Name Provider Source Jan 31, 2019 01:40 PM PRIMARY Encounter for immunization EUN POLANCO [facility] Plan of Treatment: Future Appointments (+ 6 months) and Future Tests (+/- 45 day s) The Plan of Treatment section includes future care activities for the patient fr om all [place] treatment facilities. This section includes future appointments and fu ture orders which are active, pending or scheduled. Future Appointments This section includes appointments that were scheduled t o occur 6 months from the date of the Encounter, up to a maximum of 20 appointme nts. The data comes from all [place] treatment facilities. Appointment Date/Time Appointment Type Appointment Facili ty Name Feb 26, 2019 02:00 PM AMBULATORY - NONE [facility] [place] [facility] Procedures: All associated to the encounter No Data Provided for This Section Lab Results: +/- 30 days of the encounter No Data Provided for This Section Vital Signs: All taken on the encounter date No Data Provided for This Section Immunizations: All administered on the encounter date This section contains immunizations associated to the Encounter. Immunization Series Date Issued Reaction Comments ZOSTER RECOMBINANT 2 Jan 31, 2019 Social History: Smoking Status (Most current) and Tobacco Use (All prior to enco unter date) This section includes the most current, and the historical, smoking and tobacco- related health factors from the [place] facility where the Encounter took place. Current Smoking Status This section includes the most current smoking, or tobacco -related health factor, from the [facility] facility where the Encounter took place. Date/Time Current Smoking Status Comment Facility Jun 13, 2018 03:20 PM VA-TOBACCO QUIT 15 YRS OR MORE [facility] Tobacco Use History This section includes a history of the smoking, or tobacco -related health factors, that were collected on or before the date of the Encoun ter. The data comes from the [place] facility where the Encounter took place. Date/Time Smoking Status/Tobacco Use Comment Edmundo mims Jun 13, 2018 03:20 PM VA-TOBACCO QUIT 15 YRS OR MORE [facility] Nov 15, 2016 08:28 AM NON-TOBACCO USER [facility] Nov 05, 2015 09:41 AM NON-TOBACCO USER [facility] Advance Directives: All historical and current Section Date Range: From patient's date of to the date document was create d. This section includes ALL of a patient's completed or amen ded VA Advance and Rescinded Directives. The entries below indicate that a direc tive exists for the patient, but an actual copy is not included with this docume nt. The data comes from all [place] facilities. Date Advance Directives Provider Source Oct 13, 2017 ADVANCE DIRECTIVE DELVIN VUONG [facility] Apr 01, 2010 ADMINISTRATIVE NOTE DAY CLEMENTS [facility] Dec 16, 2009 ADMINISTRATIVE NOTE HARDEEP YODER [facility] July 20, 2009 ADVANCE DIRECTIVE NICOLASA PATEL [facility] July 20, 2009 ADVANCE DIRECTIVE BUTCH MAJOR [facility] Jul 11, 2009 ADVANCE DIRECTIVE DISCUSSION EARNEST [facility]ENDERSON [facility] Jun 17, 2009 ADMINISTRATIVE NOTE MYRA BANDA [facility] Allergies and Adverse Reactions (ADRs): All historical and current Section Date Range: From patient's date of to the date document was create d. This section includes Allergies and Adverse Reactions (ADR s) on record with [place] for the patient. The data comes from a [facility] treatment facilities. It does not list Allergies/ADRs that were removed or entered in error. Some allergies/ADRs may be reported in t he Immunization section. Allergen Event Date Event Type Reaction(s) Severity Source CIPROFLOXACIN Nov 05, 2015 Propensity to adverse reactions to drug (disorder) [facility] CIPROFLOXACIN Mar 14, 2011 Propensity to adverse reactions to drug (disorder) Urticaria [facility] KEFLEX Nov 05, 2015 Propensity to adverse reactions to drug (disorder) [facility] K[facility]LEX 2009 Propensity to adverse reactions to drug (disorder) Urticaria [facility] METHOTREXATE Nov 05, 2015 Propensity to adverse reactions to drug (disorder) EruptionAsthma finding [facility], [facility] METHOTREXATE Jan 03, 2013 Propensity to adverse reactions to drug ( disorder) [facility] PENICILLIN Nov 05, 2015 Propensity to adverse reactions to drug (disorder) EruptionAsthma finding [facility] 15 PENICILLIN 2009 Propensity to adverse reactions to drug (disorder) Swelling [facility] SEASONAL ALLERGIES 2009 Propensity to adverse reactio ns (disorder) Itching of eyeRhinitis [facility] Medications: VA dispensed (-15 months) and Non-VA Documented (Obtained Outside A) Section Date Range: 1) prescriptions processed by a VA pharmacy in the last 15 m ont, and 2) all medications recorded in the [place] medical record as "non-VA medic ations". Pharmacy terms refer to [place] pharmacy's work on prescriptions. VA patient s are advised to take their medications as instructed by their health care team. The data comes from all [place] treatment facilities. Glossary of Pharmacy Terms:Active = A prescription that can be filled at the local [place] pharmacy.Active: On Hold = An active prescription that will not be filled until pharmacy resolves the issue.Active: Susp = An active prescription that is not scheduled to be filled yet.Clinic Order = A medication received during a visit to a [place] clinic or emergency department (currently not available).Discontinued = A prescription stopped by a VA provider. It is no longer available to be filled. = A prescription which is too old to fill. This does not refer to the expiration date of the medication in the container. Non-VA = A medication that came from someplace other than a VA pharmacy. This may be a prescription from either the VA or other providers that was filled outside the VA. Or, it may be an over the counter (OTC), herbal, dietary supplement or sample medication.Pending = This prescription order has been sent to the Pharmacy for review and is not ready yet. Medication Name and Strength Pharmacy Term Instructions Quantity Or dered Prescription Expires Prescription Number Last Dispense Date Ordering Provider Facility ACETAMINOPHEN 500MG TAB Non-VA TAKE ONE TABLET BY MOUTH TWO TIMES A DAY NEEDED Non-VA Documented by: ELIZABET CHENG nted at: [facility] ACETAMINOPHEN 650MG TAB,SA Non-VA TAKE ONE TABLET BY MOUTH EVERY 6 HOURS NEEDED Non-VA Documented by: MAGDA HAGERume nted at: [facility] ALBUTEROL SO4 90MCG/ACTUAT (CFC-F) INHL,ORAL,8.5GM Non-VA INHALE 2 PUFFS BY MOUTH PRN Non-VA Documented by: RAFFI ENGLISH nted at: [facility] APIXABAN 5MG TAB Non- VA TAKE ONE TABLET BY MOUTH TWO TIMES A DAY Non-VA Documented by: NOY BARR nted at: [facility] ASPIRIN 81MG TAB,CHEWABLE Non-VA CHEW ONE TABLET BY MOUTH AT BEDTIME Non-VA Documented by: GARTH MCNEAL nted at: [facility] BISACODYL 5MG TAB,EC Non -VA TAKE ONE TABLET BY MOUTH ONCE A DAY NEEDED Non-VA Documented by: NOY BARR nted at: [facility] CALCIUM 600MG ( CARBONATE)/VITAMIN D 200UNT TAB Non-VA TAKE ONE TABLET BY MOUTH TWICE A DAY Non-VA Documented by: DARRYL MENG nted at: [facility] CALCIUM ACETATE CAP,ORAL Non-VA TAKE BY MOUTH TWO TIMES A DAY Non-VA Documented by: WOLF PATEL nted at: [facility] CHOLECALCIFEROL 1000UNT TAB Non-VA TAKE ONE TABLET BY MOUTH ONCE A DAY Non-VA Documented by: NOY BARR nted at: [facility] CHOLECALCIFEROL 1000UNT TAB Non-VA TAKE ONE TABLET BY MOUTH TWICE A DAY Non-VA Documented by: DARRYL MENG nted at: [facility] COENZYME Q10 CAP/TAB Non -VA TAKE 1 CAP/TAB BY MOUTH EVERY DAY Non-VA Documented by: QUITA ENG nted at: [facility] COENZYME Q10 CAP/TAB Non -VA TAKE BY MOUTH EVERY MORNING Non- VA Documented by: WOLF PATEL nted at: [facility] FESOTERODINE FUMARATE 4MG TAB,SA Non-VA TAKE ONE TABLET BY MOUTH ONCE A DAY Non-VA Documented by: NOY BARR Docume nted at: [facility] FISH OIL (NON-VA MED) CAP/TAB Non-VA TAKE 2000MG BY MOUTH EVERY MORNING Non-VA Documented by: RAFFI ENGLISH Docume nted at: [facility] GUAIFENESIN 100MG/5ML (SF & AF) LIQUID Non-VA TAKE 1 TEASPOONFUL BY MOUTH EVERY MORNING Non-VA Documented by: WOLF PATEL Docume nted at: [facility] MULTIVITAMINS CAP/TAB No n-VA TAKE ONE TABLET BY MOUTH EVERY MORNING Non-VA Documented by: MAGDA HAGER Docume nted at: [facility] TRAZODONE HCL 50MG TAB N on-VA TAKE 1.5 TABLETS BY MOUTH AT BEDTIME Non-VA Documented by: NOY BARR Docume nted at: [facility] Problems (Conditions): All historical and current Section Date Range: From patient's date of to the date document was create d. This section includes a list of Problems (Conditions) know n to VA for the patient. It includes both active and inacti ve problems (conditions). The data comes from all [place] treatment facilities. Problem Status Problem Code Date of Onset Date of Resolution Comm ent(s) Provider Source Acute asthma Active 766411002 Mar 27, 2016 Entered By: MADHU BRAXTON Comment: Conversion of active ICD9->ICD10 03/27/2016 MADHU BRAXTON [facility] Acute bronchitis Active 36420913 Mar 27, 2016 Entered By: MADHU BRAXTON Comment: Conversion of active ICD9->ICD10 03/27/2016 MADHU BRAXTON [facility] Acute bronchitis (ICD-9-CM 466.0) Active 466.0 KENNETH REYES [facility] Aortic valve regurgitation Active 51844323 Mar 27, 2016 Entered By: MADHU BRAXTON Comment: From Echocardiogram Report on 03/31/2015 MADHU BRAXTON [facility] Aortic valve stenosis Active 62625283 Elmer DEE [facility] Asthma, unspecified (ICD-9-CM 493.90) Active 493.90 [facility] Atrial fibrillation Active 34370871 NWAOMAGDA ABDULALHI [facility] ATRIAL FIBRILLATION Active 427.31 QUITA ENG [facility] Bilateral tinnitus Active [id number] TAMARMAL LIANGPRIMITIVO Payne [facility] Carcinoma, Renal Cell * (ICD-9-CM 189.0) Active 189.0 [facility] Chronic correction disease management req uired: complex needs (SNOMED CT 821553676) Active 833307969 DAWN VAZ [facility] Chronic obstructive airway disease Active 93504923 DANIELLEMINI Adrienne [facility] Chronic obstructive lung disease Active 95325397 ELIZABET CHENG [facility] Chronic Obstructive Pulmonary Disease * (ICD-9-CM 496.) Active 496. 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 mi 1970 [facility] Coronary heart disease Active 19093351 Emy CHENG [facility] Diabetes * (ICD-9-CM 250.00) Active 250.00 [facility] Elevated Prostate Specific Antigen (PSA) (ICD-9-CM 790.93) Active 7 90.93 [facility] Epistaxis Active 61908050 Mar 27, 2016 E ntered By: MADHU BRAXTON Comment: Conversion of active ICD9->ICD10 03/27/2016 MADHU BRAXTON [facility] Epistaxis (SNOMED CT 20215279) Active 784.7 O LUWOLE,OLAWOLE MARJAN [facility] Excessive sweating Active 58831988 Mar Entered By: MADHU BRAXTON Comment: Conversion of active ICD9->ICD10 03/27/2016 MADHU BRAXTON [facility] Excessive sweating (SNOMED CT 47959611) Active 780.8 GARTH MCNEAL [facility] Exogenous hyperlipemia Active 515803861 MINI HARDEN [facility] Gastroesophageal Reflux Disorder * (ICD-9-CM 530.81) Active 530.81 [facility] Gouty Arthropathy, unspecified (ICD-9-CM 274.00) Active 274.00 HIRAMDEVONMARIA C MUNOZ [facility] H/O: anticoagulant therapy Active 368830509 [facility] HF - Heart failure Active 29811497 OLENA SANTOS [facility] High risk drug monitoring status Active 702257198 [facility] Hyperlipidemia * (ICD-9-CM 272.4) Active 272.4 [facility] Hypertrophy (Benign) of Prostate without Urinary obstr uction (ICD-9-CM 600.00) Active 600.00 [facility] Ischemic heart disease Active 179362015 2016 Entered By: MADHU BRAXTON Comment: Conversion of active ICD9->ICD10 03/27/2016 MADHU BRAXTON [facility] Malignant tumor of kidney Active 174683570 Mar 27, 2016 Entered By: MADHU BRAXTON Comment: Conversion of active ICD9->ICD10 03/27/2016 MADHU BRAXTON [facility] Mitral valve regurgitation Active 98213311 Mar 27, 2016 Entered By: MADHU BRAXTON Comment: From Echocardiogram Report on 03/31/2015 MADHU BRAXTON [facility] Obesity Active 646105772 Mar 27, 2016 E ntered By: MADHU BRAXTON Comment: Conversion of active ICD9->ICD10 03/27/2016 MADHU BRAXTON [facility] Obesity * (ICD-9-CM 278.00) Active 278.00 TMI SHAH [facility] Osteoporosis Active 47552137 Mar 27, 2016 Entered By: MADHU BRAXTON Comment: Conversion of active ICD9->ICD10 03/27/2016 MADHU BRAXTON [facility] Osteoporosis * (ICD-9-CM 733.00) Active 733.00 SANDRITA TORRES [facility] Personal History of Colonic Polyps (ICD-9-CM V12.72) Active V12.7 2 2009 Entered By: SANDRITA TORRES Comment: per colonoscopy SANDRITA TORRES [facility] Rheumatoid arthritis (SNOMED CT 62356865) Active 69669737 WILLIAMS CHUNG [facility] Sensorineural hearing loss, bilateral Active 351787919 GRACE SMART [facility] Systolic heart failure Active 846411540 2016 Entered By: MADHU BRAXTON Comment: From Echocardiogram Report on 03/31/2015 MADHU BRAXTON [facility] THERAPEUTIC DRUG MONITORING Active V58.83 PAUL QUINTERO-DANIEL A [facility] Type 2 diabetes mellitus Active 85806178 Mar 27, 2016 Entered By: MADHU BRAXTON Comment: Conversion of active ICD9->ICD10 03/27/2016 MADHU BRAXTON [facility] Ventricular hypertrophy Active 091220906 J 2016 Entered By: MADHU BRAXTON Comment: From Echocardiogram Report on 03/31/2015 MADHU BRAXTON [facility] Arthralgia * (ICD-9-CM 719.40) Inactive 719.40 Feb 182010Jul 06, 2009 Entered By: SANDRITA TORRES Comment: elbows/knees SANDRITA TORRES [facility] Atrial fibrillation (SCT 12946384) - Uns pecified atrial fibrillation (ICD-10-CM Inactive I48.91 Apr 10, 2015 TIMMY HAGER [facility] Dyspnea * (ICD-9-CM 786.05/786.09) Inactive 786.05 Feb 182010 SANDRITA TORRES [facility] Epistaxis * (ICD-9-CM 784.7) Inactive 784.7 Mar 15, 2011 GARTH MCNEAL [facility] H/O: anticoagulant therapy (SCT 72102284 8) - skilled nursing (current) use of anticoag Inactive Z79.01 Apr 10, 2015 [facility] Health Examination of Defined Subpopulations (ICD-9-CM V70.5) Inact stan V70.5 Mar 15, 2011 [facility] Hearing loss * (ICD-9-CM 389.9) Inactive 389.9 Mar 15, 2011 [facility] Hemorrhoids * (ICD-9-CM 455.6) Inactive 455.6 Feb 182010Jul 06, 2009 Entered By: SANDRITA TORRES Comment: 1971 [facility] High risk drug monitoring status ([facility] 9847133) - Encounter for therapeutic [place] Inactive Z51.81 Apr 10, 2015 [facility] Hypersensitivity * (ICD-9-CM 995.3) Inactive 995.3 Mar 15, 2011 2009 Entered By: SANDRITA TORRES Comment: pcn-local swelling, keflex-hives [facility] Male erectile disorder (ICD-9-CM 302.72/607.84) Inactive 302.72 Mar 15, 2011 [facility] Obesity * (ICD-9-CM 278.00) Inactive 278.00 Mar 15, 2011 [facility] Personal History of Congestive Heart Failure (ICD-9-CM V12.59) I nactive V12.59 Mar 15, 2011 QUITA ENG [facility] Radiology result abnormal Inactive 793.1 Mar 15, 2011 [facility] Renal Cyst (ICD-9-CM 753.10) Inactive 753.10 Mar 15, 2011 NOY RESENDIZ [facility] Screening for other specified conditions (ICD-9-CM V82.89) Inactive V82.89 Mar 15, 2011 2009 Entered By: SANDRITA TORRES Comment: ptsd [facility] Subjective tinnitus (ICD-9-CM 388.31) Inactive 388.31 De 2010 [facility] Radiology Reports: +/- 30 days of the encounter No Data Provided for This Section Pathology Reports: +/- 30 days of the encounter No Data Provided for This Section Encounter Notes: All associated encounter notes This section contains the clinical notes associated to the Encounter. Date/Time Encounter Note(s) Provider Source Jan 31, 2019 01:39 PM NURSING OUTPATIENT NOTE: LOCAL TITLE: MI-NURSE/CBOC STANDARD TITLE: NURSING OUTPATIENT NOTE DATE OF NOTE: JAN 31, 2019@13:39 ENTRY DATE: JAN 31, 2019@13:39:20 AUTHOR: EMMA PATEL COSIGNER: URGENCY: STATUS: COMPLETED Reason for appointment: Nurse Clinic: Reason for appointment: Injection Is the patient diabetic? No - patient is not a diabetic What is your goal for today's visit? *Required Is there anything in your life that worries or stresses you that we may assist you with today? *Required No Are you registered for [employer] ([facility])? No - Are you interested in registering? No If 'yes' please hand [employer] brochure. Herpes Zoster (Shingles) Vaccine: The patient received recombinant zoster vaccine (RZV) 0.5 ml IM in Right deltoid. [employer]: [address] Lot#s and Expiration Date: lot:[id number] exp:02/27/21 lot:[id number] exp:02/27/21 Administered by protocol/policy Complications: None The VIS for the recombinant zoster vaccine (RZV) dated Dec was given to the patient. /kannan/ EMMA PATEL LPN Signed: 01/31/2019 13:40 EMMA PATEL [facility]
--- OUTSIDE RECORDS SUMMARY | 2019-10-02 07:21 | XMS REPORT | Encounter Summary ---
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 Role Phone ELIZABET CHENG PCP Unavailable [...] Name Patient's Relationship to Policy Clark AETNA [facility] ([facility]) MEDICARE ADVANTAGE [facility] ([facility]) Mar 20, 2019 00 [id number] BRIAN CORDERO PATIENT COVENTRY [facility] ([facility]) MEDICARE ADVANTAGE [facility] ([facility]) Mar 20 8 [id number] [phone] CONSUELO LOCKEBRIAN PATIENT MEDICARE (WN) MEDICARE (M) PART B Sep 17, 2008 PART B [id number] KARLA CORDERO JRSHOBHA PATIENT MEDICARE (WN) MEDICARE (M) PART A Jun 18, 2005 PART A [id number] KARLA CORDERO JRSHOBHA PATIENT MEDICARE PART D (WN) MEDICARE (M) PART D Nov 19, 2015 PART D [id number] BRIAN CORDERO JR PATIENT MEDICARE PART D ([facility]) MEDICARE (M) PART D Sep 17, 2009 PART D [id number] BRIAN CORDERO JR PATIENT [facility] (WNR) MEDICARE ADVANTAGE [facility] (WNR) Sep 17, 2009 [facility] [id number] BRIAN CORDERO JR PATIENT Selected Encounter This section includes the information on record at [place] for the Encounter. Date/Time Encounter Type Encounter Description Reason Provider Source Mar 07, 2019 08:00 AM Outpatient Encounter ADMIN PAT ACTIVTIES ([facility] IHE Encounter Template Text not used by [place] Assessments - Encounter Diagnoses No Data Provided for This Section Plan of Treatment: Future Appointments (+ 6 months) and Future Tests (+/- 45 day s) No Data Provided for This Section Surgical Procedures: All associated to the encounter No Data Provided for This Section Lab Results: +/- 30 days of the encounter No Data Provided for This Section Vital Signs: All taken on the encounter date No Data Provided for This Section Immunizations: All administered on the encounter date No Data Provided for This Section Social History: Smoking Status (Most current) and Tobacco Use (All prior to enco unter date) No Data Provided for This Section Advance Directives: All historical and current Section Date Range: From patient's date of to the date document was create d. This section includes ALL of a patient's completed or amen ded [place] Advance and Rescinded Directives. The entries below indicate that a direc tive exists for the patient, but an actual copy is not included with this docume nt. The data comes from all [place] facilities. Date Advance Directives Provider Source Oct 13, 2017 ADVANCE DIRECTIVE DELVIN VUONG [facility] Apr 01, 2010 ADMINISTRATIVE NOTE DAY CLEMENTS [facility] Dec 16, 2009 ADMINISTRATIVE NOTE HARDEEP YODER [facility] July 20, 2009 ADVANCE DIRECTIVE NICOLASA PATEL [facility] July 20, 2009 ADVANCE DIRECTIVE BUTCH MAJOR [facility] Jul 11, 2009 ADVANCE DIRECTIVE DISCUSSION [facility] Jun 17, 2009 ADMINISTRATIVE NOTE MYRA BANDA [facility] Allergies and Adverse Reactions (ADRs): All historical and current Section Date Range: From patient's date of to the date document was create d. This section includes Allergies and Adverse Reactions (ADR s) on record with [place] for the patient. The data comes from a ll [place] treatment facilities. It does not list Allergies/ADRs that were removed or entered in error. Some allergies/ADRs may be reported in t he Immunization section. Allergen Event Date Event Type Reaction(s) Severity Source CIPROFLOXACIN Nov 05, 2015 Propensity to adverse reactions to drug (disorder) Asthma findingEruption [facility] CIPROFLOXACIN Mar 14, 2011 Propensity to adverse reactions to drug (disorder) Urticaria [facility] KEFLEX Nov 05, 2015 Propensity to adverse reactions to drug (disorder) Asthma findingEruption [facility] KEFLEX 2009 Propensity to adverse reactions to drug (disorder) Urticaria [facility] METHOTREXATE Nov 05, 2015 Propensity to adverse reactions to drug (disorder) EruptionAsthma finding [facility] METHOTREXATE Jan 03, 2013 Propensity to adverse reactions to drug ( disorder) [facility] PENICILLIN Nov 05, 2015 Propensity to adverse reactions to drug (disorder) EruptionAsthma finding [facility] PENICILLIN 2009 Propensity to adverse reactions to drug (disorder) Swelling [facility] SEASONAL ALLERGIES 2009 Propensity to adverse reactio ns (disorder) Itching of eyeRhinitis [facility] Medications: VA dispensed (-15 months) and Non-VA Documented (Obtained Outside V A) Section Date Range: 1) prescriptions processed by a IA pharmacy in the last 15 m [facility], and 2) all medications recorded in the IA medical record as "non-VA medic ations". Pharmacy terms refer to IA pharmacy's work on prescriptions. VA patient s are advised to take their medications as instructed by their health care team. The data comes from all [place] treatment facilities. Glossary of Pharmacy Terms:Active = A prescription that can be filled at the local [place] pharmacy.Active: On Hold = An active prescription that will not be filled until pharmacy resolves the issue.Active: Susp = An active prescription that is not scheduled to be filled yet.Clinic Order = A medication received during a visit to a IA clinic or emergency department (currently not available).Discontinued = A prescription stopped by a [place] provider. It is no longer available to [...] A DAY NEEDED Non-VA Documented by: ELIZABET CHENGume nted at: [facility] ACETAMINOPHEN 650MG TAB,SA Non-VA TAKE ONE TABLET BY MOUTH EVERY 6 HOURS NEEDED Non-VA Documented by: MAGDA HAGERume nted at: [facility] ALBUTEROL SO4 90MCG/ACTUAT (CFC-F) INHL,ORAL,8.5GM Non-VA INHALE 2 PUFFS BY MOUTH PRN Non-VA Documented by: RAFFI ENGLISH nted at: [facility] APIXABAN 5MG TAB Non- VA TAKE ONE TABLET BY MOUTH TWO TIMES A DAY Non-VA Documented by: NOY BARR nted at: [facility] ASPIRIN 81MG TAB,CHEWABLE Non-VA CHEW ONE TABLET BY MOUTH AT BEDTIME Non-VA Documented by: GARTH MCNEAL nted at: [facility] BISACODYL 5MG TAB,EC Non -VA TAKE ONE TABLET BY MOUTH ONCE A DAY NEEDED Non-VA Documented by: NOY BARR nted at: [facility] CALCIUM 600MG ( CARBONATE)/VITAMIN D 200UNT TAB Non-VA TAKE ONE TABLET BY MOUTH TWICE A DAY Non-VA Documented by: DARRYL MENG nted at: [facility] CALCIUM ACETATE CAP,ORAL Non-VA TAKE BY MOUTH TWO TIMES A DAY Non-VA Documented by: WOLF PATELume nted at: [facility] CHOLECALCIFEROL 1000UNT TAB Non-VA TAKE ONE TABLET BY MOUTH ONCE A DAY Non-VA Documented by: NOY BARR nted at: [facility] CHOLECALCIFEROL 1000UNT TAB Non-VA TAKE ONE TABLET BY MOUTH TWICE A DAY Non-VA Documented by: DARRYL MENG Docume nted at: [facility] COENZYME Q10 CAP/TAB Non -VA TAKE 1 CAP/TAB BY MOUTH EVERY DAY Non-VA Documented by: QUITA ENG Docume nted at: [facility] COENZYME Q10 CAP/TAB Non -VA TAKE BY MOUTH EVERY MORNING Non- VA Documented by: WOLF PATELume nted at: [facility] FESOTERODINE FUMARATE 4MG TAB,SA Non-VA TAKE ONE TABLET BY MOUTH ONCE A DAY Non-VA Documented by: NOY BARRume nted at: [facility] FISH OIL (NON-VA MED) CAP/TAB Non-VA TAKE 2000MG BY MOUTH EVERY MORNING Non-VA Documented by: RAFFI ENGLISH Docume nted at: [facility] GUAIFENESIN 100MG/5ML (SF & AF) LIQUID Non-VA TAKE 1 TEASPOONFUL BY MOUTH EVERY MORNING Non-VA Documented by: WOLF PATELume nted at: [facility] MULTIVITAMINS CAP/TAB No n-VA TAKE ONE TABLET BY MOUTH EVERY MORNING Non-VA Documented by: MAGDA HAGERume nted at: [facility] TRAZODONE HCL 50MG TAB N on-VA TAKE 1.5 TABLETS BY MOUTH AT BEDTIME Non-VA Documented by: NOY BARR nted at: [facility] Problems (Conditions): All historical and current Section Date Range: From patient's date of to the date document was create d. This section includes a list of Problems (Conditions) know n to VA for the patient. It includes both active and inacti ve problems (conditions). The data comes from all [place] treatment facilities. Problem Status Problem Code Date of Onset Date of Resolution Comm ent(s) Provider Source Acute asthma Active 802078070 Mar 27, 2016 Entered By: MADHU BRAXTON Comment: Conversion of active ICD9->ICD10 03/27/2016 MADHU BRAXTON [facility] Acute bronchitis Active 76274431 Mar 27, 2016 Entered By: MADHU BRAXTON Comment: Conversion of active ICD9->ICD10 03/27/2016 MADHU BRAXTON [facility] Acute bronchitis (ICD-9-CM 466.0) Active 466.0 KENNETH REYES [facility] Aortic valve regurgitation Active 46127248 Mar 27, 2016 Entered By: AMDHU BRAXTON Comment: From Echocardiogram Report on 03/31/2015 MADHU BRAXTON [facility] Aortic valve stenosis Active 22642827 Elmer DEE Elmer [facility] Asthma, unspecified (ICD-9-CM 493.90) Active 493.90 SANDRITA TORRES [facility] Atrial fibrillation Active 95857650 MAGDA HAGER [facility] ATRIAL FIBRILLATION Active 427.31 QUITA ENG [facility] Bilateral tinnitus Active [id number] [facility] Carcinoma, Renal Cell * (ICD-9-CM 189.0) Active 189.0 [facility] Chronic residential disease management req uired: complex needs (SNOMED CT 731500436) Active 430465045 DAWN VAZ [facility] Chronic obstructive airway disease Active 82318151 MINI SANTOS [facility] Chronic obstructive lung disease Active 00402435 ELIZABET CHENG [facility] Chronic Obstructive Pulmonary Disease * (ICD-9-CM 496.) Active 496. 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 1970 SANDRITA TORRES [facility] Coronary heart disease Active 38147987 Emy [facility] Diabetes * (ICD-9-CM 250.00) Active 250.00 IBIS JAIGARTH [facility] Elevated Prostate Specific Antigen (PSA) (ICD-9-CM 790.93) Active 7 90.93 [facility] Epistaxis Active 50152814 Mar 27, 2016 E ntered By: MADHU BRAXTON Comment: Conversion of active ICD9->ICD10 03/27/2016 MADHU BRAXTON [facility]HA[facility] NOLASCO [facility] Epistaxis (SNOMED CT 57729267) Active 784.7 O LUWOLE,KARMENAWJENNY PHILLIP [facility] Excessive sweating Active 40687047 Mar Entered By: MADHU BRAXTON Comment: Conversion of active ICD9->ICD10 03/27/2016 MADHU BRAXTON [facility] Excessive sweating (SNOMED CT 61808135) Active 780.[address] [facility] Exogenous hyperlipemia Active 658654134 MINI HARDEN [facility] Gastroesophageal Reflux Disorder * (ICD-9-CM 530.81) Active 530.81 [facility] Gouty Arthropathy, unspecified (ICD-9-CM 274.00) Active 274.00 MARIA C ARELLANO [facility] H/O: anticoagulant therapy Active 027913262 [facility] HF - Heart failure Active 12457584 OLENA SANTOS [facility] High risk drug monitoring status Active 875112067 [facility] Hyperlipidemia * (ICD-9-CM 272.4) Active 272.4 [facility] Hypertrophy (Benign) of Prostate without Urinary obstr uction (ICD-9-CM 600.00) Active 600.00 [facility] Ischemic heart disease Active 465804006 2016 Entered By: MADHU BRAXTON Comment: Conversion of active ICD9->ICD10 03/27/2016 MADHU BRAXTON [facility] Malignant tumor of kidney Active 245792738 Mar 27, 2016 Entered By: MADHU BRAXTON Comment: Conversion of active ICD9->ICD10 03/27/2016 MADHU BRAXTON [facility] Mitral valve regurgitation Active 93396987 Mar 27, 2016 Entered By: MADHU BRAXTON Comment: From Echocardiogram Report on 03/31/2015 MADHU BRAXTON [facility] Obesity Active 098778803 Mar 27, 2016 E ntered By: MADHU BRAXTON Comment: Conversion of active ICD9->ICD10 03/27/2016 MADHU BRAXTON [facility] Obesity * (ICD-9-CM 278.00) Active 278.00 TIM SHAH [facility] Osteoporosis Active 26484765 Mar 27, 2016 Entered By: MADHU BRAXTON Comment: Conversion of active ICD9->ICD10 03/27/2016 MADHU BRAXTON [facility] Osteoporosis * (ICD-9-CM 733.00) Active 733.00 [facility] Personal History of Colonic Polyps (ICD-9-CM V12.72) Active V12.7 2009 Entered By: SANDRITA TORRES Comment: [facility] colon[facility] Rheumatoid arthritis (SNOMED CT 10346698) Active 31703231 WILLIAMS CHUNG [facility] Sensorineural hearing loss, bilateral Active 091860543 GRACE SMART [facility] Systolic heart failure Active 280101595 n 2016 Entered By: MADHU BRAXTON Comment: From Echocardiogram Report on 03/31/2015 MADHU BRAXTON [facility] THERAPEUTIC DRUG MONITORING Active V58.83 JENNIFER SSE,KIDEST-DANIEL A [facility] Type 2 diabetes mellitus Active 32685375 Mar 27, 2016 Entered By: MADHU BRAXTON Comment: Conversion of active ICD9->ICD10 03/27/2016 MADHU BRAXTON [facility] Ventricular hypertrophy Active 046591992 J 2016 Entered By: MADHU BRAXTON Comment: From Echocardiogram Report on 03/31/2015 MADHU BRAXTON [facility] Arthralgia * (ICD-9-CM 719.40) Inactive 719.40 Feb 182010Jul 06, 2009 Entered By: SANDRITA TORRES Comment: elbows/knees [facility] Atrial fibrillation ([facility] 40650793) - Uns pecified atrial fibrillation (ICD-10-CM Inactive I48.91 Apr 10, 2015 [facility] Dyspnea * (ICD-9-CM 786.05/786.09) Inactive 786.05 Feb 182010 [facility] Epistaxis * (ICD-9-CM 784.7) Inactive 784.7 Mar 15, 2011 ELIZABETGARTH 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 Inactive Z79.01 Apr 10, 2015 [facility] Health Examination of Defined Subpopulations (ICD-9-CM V70.5) Inact stan V70.5 Mar 15, 2011 [facility] Hearing loss * (ICD-9-CM 389.9) Inactive 389.9 Mar 15, 2011 [facility] Hemorrhoids * (ICD-9-CM 455.6) Inactive 455.6 Feb 182010Jul 06, 2009 Entered By: SANDRITA TORRES Comment: 1971 [facility] High risk drug monitoring status ([facility] 24 8790585) - Encounter for therapeutic [place] Inactive Z51.81 Apr 10, 2015 [facility] Hypersensitivity * (ICD-9-CM 995.3) Inactive 995.3 Mar 15, 2011 2009 Entered By: SANDRITA TORRES Comment: pcn-local swelling, keflex-hives [facility] Male erectile disorder (ICD-9-CM 302.72/607.84) Inactive 302.72 Mar 15, 2011 [facility] Obesity * (ICD-9-CM 278.00) Inactive 278.00 Mar 15, 2011 [facility] Personal History of Congestive Heart Failure (ICD-9-CM V12.59) I nactive V12.59 Mar 15, 2011 QUITA ENG [facility] Radiology result abnormal Inactive 793.1 Mar 15, 2011 TORRESSANDRITA DUMONT [facility] Renal Cyst (ICD-9-CM 753.10) Inactive 753.10 Mar 15, 2011 NOY RESENDIZ [facility] Screening for other specified conditions (ICD-9-CM V82.89) Inactive V82.89 Mar 15, 2011 2009 Entered By: SANDRITA TORRES Comment: ptsd [facility] Subjective tinnitus (ICD-9-CM 388.31) Inactive 388.31 De c 2010 [facility] Radiology Reports: +/- 30 days of the encounter No Data Provided for This Section Pathology Reports: +/- 30 days of the encounter No Data Provided for This Section Encounter Notes: All associated encounter notes This section contains the clinical notes associated to the Encounter. Date/Time Encounter Note(s) Provider Source Mar 07, 2019 08:00 AM NONVA CONSULT: LOCAL TITLE: COMMUNITY CARE CONSULT RESULTS NOTE WI STANDARD TITLE: NONVA CONSULT DATE OF NOTE: MAR 07, 2019@08:00 ENTRY DATE: MAY 21, 2019@17:08:22 AUTHOR: SHERMAN HIGHTOWER EXP COSIGNER: URGENCY: STATUS: COMPLETED The following Non VA Care consult has been completed. See scanned document for report. NON VA Care Consult Results Audiology Comment: [facility]-AUDIO/PRESSCLAUDIO/03-07-19 /kannan/ SHERMAN HIGHTOWER AMSA Signed: 05/21/2019 17:09 SHERMAN HIGHTOWER [facility]
--- OUTSIDE RECORDS SUMMARY | 2019-10-02 07:22 | XMS REPORT | Encounter Summary ---
Author Author Department of [facility], [place] Organization Department of [facility] Address [address] [place] [address] Phone Unavailable Care Team Providers Care Limnologist Name Role Phone ELIZABET CHENG PCP Unavailable [...] Name Patient's Relationship to Policy Clark AETNA [facility] MEDICARE ADVANTAGE [facility] Mar 20, 2019 00 [id number] CORDEROKARLASHOBHA [facility] MEDICARE ADVANTAGE [facility] Mar 20 8 [id number] [phone] CONSUELO LOCKEBRIAN PATIENT MEDICARE (WN) MEDICARE (M) PART B Sep 17, 2008 PART B [id number] [phone] CONSUELO LOCKEBRIAN PATIENT MEDICARE (WN) MEDICARE (M) PART A Jun 18, 2005 PART A [id number] [phone] CONSUELO LOCKEBRIAN PATIENT MEDICARE PART D (WN) MEDICARE (M) PART D Nov 19, 2015 PART D [id number] KARLA CORDERO JRSHOBHA PATIENT MEDICARE PART D ([facility]) MEDICARE (M) PART D Sep 17, 2009 PART D [id number] CONSUELO BRIAN PATIENT [facility] (WNR) MEDICARE ADVANTAGE [facility] (WNR) Sep 17, 2009 [facility] [id number] BRIAN CORDERO JR PATIENT Selected Encounter This section includes the information on record at [place] for the Encounter. Date/Time Encounter Type Encounter Description Reason Provider Source Jan 14, 2019 09:18 AM Outpatient Encounter ADMIN PAT ACTIVTIES (MASNO NCT) [facility] Encounter Template Text not used by [place] Assessments - Encounter Diagnoses No Data Provided for This Section Plan of Treatment: Future Appointments (+ 6 months) and Future Tests (+/- 45 day s) The Plan of Treatment section includes future care activities for the patient fr om all [place] treatment facilities. This section includes future appointments and fu ture orders which are active, pending or scheduled. Future Appointments This section includes appointments that were scheduled t o occur 6 months from the date of the Encounter, up to a maximum of 20 appointme nts. The data comes from all [place] treatment facilities. Appointment Date/Time Appointment Type Appointment Facili ty Name Jan 31, 2019 02:00 PM [facility]ORY [facility] NONE [facility] Feb 26, 2019 02:00 PM AMBULATORY - NONE [facility] Active, Pending, and Scheduled Orders This section includes a listing of several types of activ e, pending, and scheduled orders, including clinic medications orders, diagnosti c test orders, procedure orders and consult orders; where the start date of th e order is 45 days before the date of the Encounter or 45 days after the date o f the Encounter. The data comes from all [place] treatment facilities. Test Date/Time Test Type Test Details Facility Name Nov 30, 2018 03:25 PM Consult Order [id number] Cons Iron Handler's Choice [facility] Surgical Procedures: All associated to the encounter [...] and tobacco- related health factors from the [place] facility where the Encounter took place. Current Smoking Status This section includes the most current smoking, or tobacco -related health factor, from the [place] facility where the Encounter took place. Date/Time Current Smoking Status Comment Facility Jun 13, 2018 03:20 PM VA-TOBACCO QUIT 15 YRS OR MORE [facility] Tobacco Use History This section includes a history of the smoking, or tobacco -related health factors, that were collected on or before the date of the Encoun ter. The data comes from the [place] facility where the Encounter took place. Date/Time Smoking Status/Tobacco Use Comment Edmundo mims Jun 13, 2018 03:20 PM VA-TOBACCO QUIT 15 YRS OR MORE [facility] Nov 15, 2016 08:28 AM NON-TOBACCO USER [facility] Nov 05, 2015 09:41 AM NON-TOBACCO USER [facility] Advance Directives: All historical and current Section [...] docume nt. The data comes from all [place] facilities. Date Advance Directives Provider Source Oct 13, 2017 ADVANCE DIRECTIVE DELVIN VUONG [facility] Apr 01, 2010 ADMINISTRATIVE NOTE DAY CLEMENTS [facility] Dec 16, 2009 ADMINISTRATIVE NOTE HARDEEP YODER [facility] July 20, 2009 ADVANCE DIRECTIVE NICOLASA PATEL [facility] July 20, 2009 ADVANCE DIRECTIVE BUTCH MAJOR [facility] Jul 11, 2009 ADVANCE DIRECTIVE DISCUSSION EARNEST HENDERSON [facility] Jun 17, 2009 ADMINISTRATIVE NOTE MYRA BANDA [facility] Allergies and Adverse Reactions (ADRs): All historical and current Section Date Range: From patient's date of to the date document was create d. This section includes Allergies and Adverse Reactions (ADR s) on record with VA for the patient. The data comes from a ll [place] treatment facilities. It does not list Allergies/ADRs that were removed or entered in error. Some allergies/ADRs may be reported in t he Immunization section. Allergen Event Date Event Type Reaction(s) Severity Source CIPROFLOXACIN Nov 05, 2015 Propensity to adverse reactions to drug (disorder) Asthma findingEruption [facility] 15 CIPROFLOXACIN Mar 14, 2011 Propensity to adverse reactions to drug (disorder) Urticaria [facility] KEFLEX Nov 05, 2015 Propensity to adverse reactions to drug (disorder) Asthma findingEruption [facility] 15 KEFLEX 2009 Propensity to adverse reactions to drug (disorder) Urticaria [facility] METHOTREXATE Nov 05, 2015 Propensity to adverse reactions to drug (disorder) EruptionAsthma finding [facility] 15 METHOTREXATE Jan 03, 2013 Propensity to adverse reactions to drug ( disorder) [facility] PENICILLIN Nov 05, 2015 Propensity to adverse reactions to drug (disorder) EruptionAsthma finding [facility] VISN 15 PENICILLIN 2009 Propensity to adverse reactions to drug (disorder) Swelling [facility] SEASONAL ALLERGIES 2009 Propensity to adverse reactio ns (disorder) Itching of eyeRhinitis [facility] Medications: VA dispensed (-15 months) and Non-VA Documented (Obtained Outside [facility]) Section Date Range: 1) prescriptions processed by a VA pharmacy in the last [address] [facility], and 2) all medications recorded in the [place] medical record as "non-VA medic ations". Pharmacy terms refer to [place] pharmacy's work on prescriptions. VA patient s are advised to take their medications as instructed by their health care team. The data comes from all [place] treatment facilities. Glossary of Pharmacy Terms:Active = A prescription that can be filled at the local [place] pharmacy.Active: On Hold = An active prescription that will not be filled until pharmacy resolves the issue.Active: Susp = An active prescription that is not scheduled to be filled yet.Clinic Order = A medication received during a visit to a [place] clinic or emergency department (currently not available).Discontinued [...] Non-VA Documented by: ELIZABET CHENG nted at: [facility] ACETAMINOPHEN 650MG TAB,SA Non-VA TAKE ONE TABLET BY MOUTH EVERY 6 HOURS NEEDED Non-VA Documented by: MAGDA HAGER nted at: [facility] ALBUTEROL SO4 90MCG/ACTUAT (CFC-F) INHL,ORAL,8.5GM Non-VA INHALE 2 PUFFS BY MOUTH PRN Non-VA Documented by: RAFFI ENGLISH nted at: [facility] APIXABAN 5MG TAB Non- VA TAKE ONE TABLET BY MOUTH TWO TIMES A DAY Non-VA Documented by: NOY BARR nted at: [facility] ASPIRIN 81MG TAB,CHEWABLE Non-VA CHEW ONE TABLET BY MOUTH AT BEDTIME Non-VA Documented by: GARTH MCNEAL nted at: [facility] BISACODYL 5MG TAB,EC Non -VA TAKE ONE TABLET BY MOUTH ONCE A DAY NEEDED Non-VA Documented by: NOY BARR nted at: [facility] CALCIUM 600MG ( CARBONATE)/VITAMIN D 200UNT TAB Non-VA TAKE ONE TABLET BY MOUTH TWICE A DAY Non-VA Documented by: DARRYL MENG nted at: [facility] CALCIUM ACETATE CAP,ORAL Non-VA TAKE BY MOUTH TWO TIMES A DAY Non-VA Documented by: WOLF PATEL nted at: [facility] CHOLECALCIFEROL 1000UNT TAB Non-VA TAKE ONE TABLET BY MOUTH ONCE A DAY Non-VA Documented by: NOY BARR nted at: [facility] CHOLECALCIFEROL 1000UNT TAB Non-VA TAKE ONE TABLET BY MOUTH TWICE A DAY Non-VA Documented by: DARRYL MENG nted at: [facility] COENZYME Q10 CAP/TAB Non -VA TAKE 1 CAP/TAB BY MOUTH EVERY DAY Non-VA Documented by: QUITA ENG nted at: [facility] COENZYME Q10 CAP/TAB Non -VA TAKE BY MOUTH EVERY MORNING Non- VA Documented by: WOLF PATEL Docume nted at: [facility] FESOTERODINE FUMARATE 4MG TAB,SA Non-VA TAKE ONE TABLET BY MOUTH ONCE A DAY Non-VA Documented by: NOY BARRume nted at: [facility] FISH OIL (NON-VA MED) CAP/TAB Non-VA TAKE 2000MG BY MOUTH EVERY MORNING Non-VA Documented by: RAFFI ENGLISH Docume nted at: [facility] GUAIFENESIN 100MG/5ML (SF & AF) LIQUID Non-VA TAKE 1 TEASPOONFUL BY MOUTH EVERY MORNING Non-VA Documented by: WOLF PATELume nted at: [facility] MULTIVITAMINS CAP/TAB No n-VA TAKE ONE TABLET BY MOUTH EVERY MORNING Non-VA Documented by: MAGDA HAGER Docume nted at: [facility] TRAZODONE HCL 50MG TAB N on-VA TAKE 1.5 TABLETS BY MOUTH AT BEDTIME Non-VA Documented by: NOY BARRume nted at: [facility] Problems (Conditions): All historical and current Section Date Range: From patient's date of to the date document was create d. This section includes a list of Problems (Conditions) know n to VA for the patient. It includes both active and inacti ve problems (conditions). The data comes from all [place] treatment facilities. Problem Status Problem Code Date of Onset Date of Resolution Comm ent(s) Provider Source Acute asthma Active 135973612 Mar 27, 2016 Entered By: MADHU BRAXTON Comment: Conversion of active ICD9->ICD10 03/27/2016 MADHU BRAXTON [facility] Acute bronchitis Active 63028584 Mar 27, 2016 Entered By: MADHU BRAXTON Comment: Conversion of active ICD9->ICD10 03/27/2016 MADHU BRAXTON [facility] Acute bronchitis (ICD-9-CM 466.0) Active 466.0 REYES,IMRAN [facility] Aortic valve regurgitation Active 65689795 Mar 27, 2016 Entered By: MADHU BRAXTON Comment: From Echocardiogram Report on 03/31/2015 MADHU BRAXTON [facility] Aortic valve stenosis Active 64184994 LEILAElmer BOLAÑOS Elmer [facility] Asthma, unspecified (ICD-9-CM 493.90) Active 493.90 [facility] Atrial fibrillation Active 01791251 NWAOMAGDA ABDULLAHI [facility] ATRIAL FIBRILLATION Active 427.31 QUITA ENG Mohini [facility] Bilateral tinnitus Active [id number] GRACE SMART [facility] Carcinoma, Renal Cell * (ICD-9-CM 189.0) Active 189.0 [facility] Chronic detention disease management req uired: complex needs (SNOMED CT 009773534) Active 976213384 DAWN VAZ [facility] Chronic obstructive airway disease Active 27323749 MINI SANTOS [facility] Chronic obstructive lung disease Active 67174712 ELIZABET CHENG [facility] Chronic Obstructive Pulmonary Disease * (ICD-9-CM 496.) Active 496. 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 mi 1970 [facility] Coronary heart disease Active 57803238 Emy CHENG [facility] Diabetes * (ICD-9-CM 250.00) Active 250.00 [facility] Elevated Prostate Specific Antigen (PSA) (ICD-9-CM 790.93) Active 7 90.93 [facility] Epistaxis Active 24396854 Mar 27, 2016 E ntered By: MADHU BRAXTON Comment: Conversion of active ICD9->ICD10 03/27/2016 MADHU BRAXTON MICHEAL NOLASCO [facility] Epistaxis (SNOMED CT 55791951) Active 784.7 O JERSON MORENO [facility] Excessive sweating Active 78318891 Mar Entered By: MADHU BRAXTON Comment: Conversion of active ICD9->ICD10 03/27/2016 MADHU BRAXTON DHARMESH [facility] Excessive sweating (SNOMED CT 07180194) Active 780.8 GARTH MCNEAL [facility] Exogenous hyperlipemia Active 701376464 YARELY ALMODOVARMINI Deleon [facility] Gastroesophageal Reflux Disorder * (ICD-9-CM 530.81) Active 530.81 [facility] Gouty Arthropathy, unspecified (ICD-9-CM 274.00) Active 274.00 MARIA C ARELLANO [facility] H/O: anticoagulant therapy Active 718121195 MAGDA FRANKLIN [facility] HF - Heart failure Active 13438461 OLENA SANTOS [facility] High risk drug monitoring status Active 577285483 AOJOBNYU LANG[facility] Hyperlipidemia * (ICD-9-CM 272.4) Active 272.4 [facility] Hypertrophy (Benign) of Prostate without Urinary obstr uction (ICD-9-CM 600.00) Active 600.00 [facility] Ischemic heart disease Active 521177235 2016 Entered By: MADHU BRAXTON Comment: Conversion of active ICD9->ICD10 03/27/2016 MADHU BRAXTON [facility] Malignant tumor of kidney Active 560772789 Mar 27, 2016 Entered By: MADHU BRAXTON Comment: Conversion of active ICD9->ICD10 03/27/2016 MADHU BRAXTON [facility] Mitral valve regurgitation Active 16394157 Mar 27, 2016 Entered By: MADHU BRAXTON Comment: From Echocardiogram Report on 03/31/2015 MADHU BRAXTON [facility] Obesity Active 923451190 Mar 27, 2016 E ntered By: MADHU BRAXTON Comment: Conversion of active ICD9->ICD10 03/27/2016 MADHU BRAXTON [facility] Obesity * (ICD-9-CM 278.00) Active 278.00 TIM SHAH [facility] Osteoporosis Active 59786799 Mar 27, 2016 Entered By: MADHU BRAXTON Comment: Conversion of active ICD9->ICD10 03/27/2016 MADHU BRAXTON [facility] Osteoporosis * (ICD-9-CM 733.00) Active 733.00 SANDRITA TORRES [facility] Personal History of Colonic Polyps (ICD-9-CM V12.72) Active V12.7 2 2009 Entered By: SANDRITA TORRES Comment: per colonoscopy TORRESSANDRITA DUMONT [facility] Rheumatoid arthritis (SNOMED CT 89537103) Active 97650488 WILLI[facility] CH[facility]G [facility] Sensorineural hearing loss, bilateral Active 655416749 GRACE SMART [facility] Systolic heart failure Active 481623430 n 2016 Entered By: MADHU BRAXTON Comment: From Echocardiogram Report on 03/31/2015 MADHU BRAXTON [facility] THERAPEUTIC DRUG MONITORING Active V58.83 PAUL QUINTERO-DANIEL A [facility] Type 2 diabetes mellitus Active 44470242 Mar 27, 2016 Entered By: MADHU BRAXTON Comment: Conversion of active ICD9->ICD10 03/27/2016 MDAHU BRAXTON [facility] Ventricular hypertrophy Active 938986949 2016 Entered By: MADHU BRAXTON Comment: From Echocardiogram Report on 03/31/2015 MADHU BRAXTON [facility] Arthralgia * (ICD-9-CM 719.40) Inactive 719.40 Feb 182010Jul 06, 2009 Entered By: SANDRITA TORRES Comment: elbows/knees SANDRITA TORRES [facility] Atrial fibrillation ([facility] 11757612) - Uns pecified atrial fibrillation (ICD-10-CM Inactive I48.91 Apr 10, 2015 TIMMY HAGER [facility] Dyspnea * (ICD-9-CM 786.05/786.09) Inactive 786.05 Feb 182010 [facility] Epistaxis * (ICD-9-CM 784.7) Inactive 784.7 Mar 15, 2011 GARTH MCNEAL [facility] H/O: anticoagulant therapy ([facility] 67300681 8) - 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 of anticoag Inactive Z79.01 Apr 10, 2015 [facility] Health Examination of Defined Subpopulations (ICD-9-CM V70.5) Inact stan V70.5 Mar 15, 2011 [facility] Hearing loss * (ICD-9-CM 389.9) Inactive 389.9 Mar 15, 2011 [facility] Hemorrhoids * (ICD-9-CM 455.6) Inactive 455.6 Feb 182010Jul 06, 2009 Entered By: SANDRITA TORRES Comment: 1971 [facility] High risk drug monitoring status ([facility] 24 7647168) - Encounter for therapeutic [place] Inactive Z51.81 Apr 10, 2015 [facility] Hypersensitivity * (ICD-9-CM 995.3) Inactive 995.3 Mar 15, 2011 2009 Entered By: SANDRITA TORRES Comment: pcn-local swelling, keflex-hives [facility] Male erectile disorder (ICD-9-CM 302.72/607.84) Inactive 302.72 Mar 15, 2011 [facility] Obesity * (ICD-9-CM 278.00) Inactive 278.00 Mar 15, 2011 [facility] Personal History of Congestive Heart Failure (ICD-9-CM V12.59) I nactive V12.59 Mar 15, 2011 QUITA ENG [facility] Radiology result abnormal Inactive 793.1 Mar 15, 2011 [facility] Renal Cyst (ICD-9-CM 753.10) Inactive 753.10 Mar 15, 2011 NOY RESENDIZ [facility] Screening for other specified conditions (ICD-9-CM V82.89) Inactive V82.89 Mar 15, 2011 2009 Entered By: SANDRITA TORRES Comment: ptsd [facility] Subjective tinnitus (ICD-9-CM 388.31) Inactive 388.31 De c 2010 SANDRITA TORRES [facility] Radiology Reports: +/- 30 days of the encounter No Data Provided for This Section Pathology Reports: +/- 30 days of the encounter No Data Provided for This Section Encounter Notes: All associated encounter notes This section contains the clinical notes associated to the Encounter. Date/Time Encounter Note(s) Provider Source Jan 14, 2019 09:18 AM DIAGNOSTIC STUDY REPORT: LOCAL TITLE: WI-FORM LETTER DIAGNOSTIC RESULTS STANDARD TITLE: DIAGNOSTIC STUDY REPORT DATE OF NOTE: JAN 14, 2019@09:18 ENTRY DATE: JAN 14, 2019@09:19:05 AUTHOR: YULIYA SERRANO EXP COSIGNER: URGENCY: STATUS: COMPLETED Department [facility] Caden Rice [address] [place] [id number] BRIAN CORDERO [facility] [employer] [facility], [address], [address] Dec Dear BRIAN CORDERO, The purpose of this letter is to inform you of your test results done recently at the [facility],[place], [place]. LABORATORY Comments: Your sodium level is slightly low at 134. Your hemoglobin is low at 12.4. Your glucose is 168, limit sugar and carbohydrates. Kidney function has improved, continue to follow up with your private provider and share results. ADÁN Laurent YULIYA SHUKLA CB
--- OUTSIDE RECORDS SUMMARY | 2019-10-02 07:22 | XMS REPORT | Encounter Summary ---
Author Author Department [facility], [place] Organization [facility] Address [address] [place] [address] Phone Unavailable Care Team Providers Care Blue Leather Setter Name Role Phone ELIZABET CHENG PCP Unavailable [...] Name Patient's Relationship to Policy Clark AETNA [facility] MEDICARE ADVANTAGE [facility] Mar 20, 2019 00 [phone] [id number] CORDEROBRIAN [facility] MEDICARE ADVANTAGE [facility] Mar 20 8 [id number] [phone] BRIAN CORDERO JR PATIENT MEDICARE (WN) MEDICARE (M) PART B Sep 17, 2008 PART B [id number] [phone] CONSUELO LOCKEBRIAN PATIENT MEDICARE (WN) MEDICARE (M) PART A Jun 18, 2005 PART A [id number] [phone] CONSUELO LOCKEBRIAN PATIENT MEDICARE PART D ([facility]) MEDICARE (M) PART D Nov 19, 2015 PART D [id number] BRIAN CORDERO JR PATIENT MEDICARE PART D ([facility]) MEDICARE (M) PART D Sep 17, 2009 PART D [id number] BRIAN CORDERO JR PATIENT [facility] (WNR) MEDICARE ADVANTAGE [facility] ([place]) Sep 17, 2009 [facility] [id number] BRIAN CORDERO JR PATIENT Selected Encounter This section includes the information on record at NE for the Encounter. Date/Time Encounter Type Encounter Description Reason Provider Source Dec 15, 2018 11:25 AM Outpatient Encounter COMMUNITY CARE CONSULT [facility] [place] 15 IHE Encounter Template Text not used by NE Assessments - Encounter Diagnoses No Data Provided for This Section Plan of Treatment: Future Appointments (+ 6 months) and Future Tests (+/- 45 day s) The Plan of Treatment section includes future care activities for the patient fr om all NE treatment facilities. This section includes future appointments and fu ture orders which are active, pending or scheduled. Future Appointments This section includes appointments that were scheduled t o occur 6 months from the date of the Encounter, up to a maximum of 20 appointme nts. The data comes from all NE treatment [facility]. Appointment Date/Time Appointment Type Appointment Facili ty Name Jan 02, 2019 11:00 AM AMBULATORY - NONE CADEN GARCÍA C Jan 31, 2019 02:00 PM AMBULATORY - NONE [facility] Feb 26, 2019 02:00 PM AMBULATORY - NONE CADEN Nuñez Active, Pending, and Scheduled Orders This section [...] the Encounter. The data comes from all NE treatment [facility]. Test Date/Time Test Type Test Details Facility Name Nov 29, 2018 12:00 AM Laboratory - Chemistry Order OCCULT BL OOD FIT X1 SCREEN STOOL FECES SP [facility] Nov 30, 2018 03:25 PM Consult Order [facility] [id number] Cons Lozenge Maker Helper's Choice [facility] Surgical Procedures: All associated to the encounter No Data Provided for This Section Lab Results: +/- 30 days of the encounter This section includes the Chemistry and Hematology Lab R esults on record with NE for the patient. Radiology Reports and Pathology Report s are provided separately, in subsequent sections. Lab Results This section contains the Chemistry/Hematology Results kwabena t were resulted 30 days before or 30 days after the date of the Encounter. Date/Time Source Result Type Result - Unit Interpretation Reference Range Comment Nov 29, 2018 08:[address] [facility] CBC & DIFF Specimen Type: BLOOD No comment entered. WBC 8.7 K/cmm 3.60-11.20 RBC 3.96 M/ul L 4.1-5.7 HGB 12.4 g/dl L 13.1-16.8 HCT 37.3 % L 38.2-48.4 MCV 94.2 fl 80.1-98.5 MCH 31.3 pg 27.0-34.0 MCHC 33.2 g/dl 33.0-36.0 PLATELET COUNT 196 K/cmm 150-400 MPV 9.6 fl 7.5-11.2 RDW 15.1 % 11.8-15.1 LYMPHOCYTES, AUTO% 16.6 % NEUTROPHILS, AUTO % 71.2 % MONOCYTES, AUTO% 9.9 % MONOCYTES, ABSOLUTE 0.9 K/cmm H 0.19-0.80 NEUTROPHILS, ABSOLUTE 6.2 K/cmm 2.10-8.0 0 EOSINOPHILS, ABSOLUTE 0.1 K/cmm 0.00-0.6 0 BASOPHILS, ABSOLUTE 0.1 K/cmm 0.00-0.20 EOSINOPHILS, AUTO% 1.4 % BASOPHILS, AUTO% 0.7 % LYMPHOCYTES, ABSOLUTE 1.4 K/cmm 0.77-4.5 0 IMMATURE GRANS, ABSOLUTE 0.02 K/cmm 0.00 -0.05 IMMATURE GRANS, AUTO % 0.2 % Nov 29, 2018 08:[address] [facility] COMPREHENSIVE METABOLIC PA VIVIEN Specimen Type: PLASMA Comment: For eGFR: eGFR results >60 are imprecise. Many variables affect the calculated result. Interpretation of eGFR results >60 must be monitored over time. *CREATININE 0.99 mg/dL 0.7-1.3 UREA NITROGEN mg/dL 16 mg/dL 9-25 GLUCOSE 168 mg/dL H 72-99 SODIUM 134 mEq/L L 136-145 POTASSIUM 3.9 mEq/L 3.5-5.0 CALCIUM (mg/dL) 9.3 mg/dL 8.4-10.4 PROTEIN,TOTAL 6.9 g/dL 6.0-8.6 ALBUMIN 4.3 g/dl 3.4-5.0 TOTAL BILIRUBIN 0.5 mg/dL 0.2-1.2 ASPARTATE TRANSAMINASE 21 U/L 5-34 ALANINE AMINOTRANSFERASE 16 U/L 8-40 ANION GAP 9.3 8-16 CHLORIDE 96 mEq/L L 98-107 CO2 28.7 mEq/L 22-31 ALKALINE PHOSPHATASE 61 U/L 40-150 EGFR >60 Nov 29, 2018 08:56 AM [facility] LIPID PROFILE(HDL,TRIG,CHO L,LDL) Specimen Type: PLASMA Comment: For eGFR: eGFR results >60 are imprecise. Many variables affect the calculated result. Interpretation of eGFR results >60 must be monitored over time. CHOLESTEROL 171 mg/dL 0-200 TRIGS 98 mg/dL 0-150 HDL-CHOLESTEROL 73 mg/dL >40 LDL (CALC) 78 mg/dL 0-99.9 Nov 29, 2018 08:56 AM [facility] TSH Specimen Type: SERUM No comment entered. TSH 4.18 uIU/mL 0.47-5.00 Nov 29, 2018 08:56 AM [facility] PROSTATIC SPECIFIC ANTIGEN (TOTAL) Specimen Type: SERUM No comment entered. PROSTATIC SPECIFIC ANTIGEN(TOTAL) 1.8 ng/mL 0-4 Nov 29, 2018 08:56 AM [facility] VITAMIN D (25-OH) Specimen Type: SERUM No comment entered. VITAMIN D (25-OH) 31.6 ng/mL 30.0-96.0 Vital Signs: All taken on the encounter [...] of a patient's completed or amen ded NE Advance and Rescinded Directives. The entries below indicate that a direc tive exists for the patient, but an actual copy is not included with this docume nt. The data comes from all NE facilities. Date Advance Directives Provider Source Oct 13, 2017 ADVANCE DIRECTIVE DELVIN VUONG [facility] Apr 01, 2010 ADMINISTRATIVE NOTE [facility] Dec 16, 2009 ADMINISTRATIVE NOTE HARDEEP YODER [facility] July 20, 2009 ADVANCE DIRECTIVE NICOLASA PATEL [facility] July 20, 2009 ADVANCE DIRECTIVE BUTCH MAJOR [facility] Jul 11, 2009 ADVANCE DIRECTIVE DISCUSSION EARNEST HENDERSON [facility] Jun 17, 2009 ADMINISTRATIVE NOTE MYRA BANDA [facility] Allergies and Adverse Reactions (ADRs): All historical and current Section Date Range: From patient's date of to the date document was create d. This section includes Allergies and Adverse Reactions (ADR s) on record with VA for the patient. The data comes from a ll NE treatment facilities. It does not list Allergies/ADRs that were removed or entered in error. Some allergies/ADRs may be reported in t he Immunization section. Allergen Event Date Event Type Reaction(s) Severity Source CIPROFLOXACIN Nov 05, 2015 Propensity to adverse reactions to drug (disorder) [facility] CIPROFLOXACIN Mar 14, 2011 Propensity to adverse reactions to drug (disorder) Urticaria [facility] KEFLEX Nov 05, 2015 Propensity to adverse reactions to drug (disorder) [facility] KEFLEX 2009 Propensity to adverse reactions to drug (disorder) Urticaria [facility] METHOTREXATE Nov 05, 2015 Propensity to adverse reactions to drug (disorder) EruptionAsthma finding [facility] 15 METHOTREXATE Jan 03, 2013 Propensity to adverse reactions to drug ( disorder) [facility] PENICILLIN Nov 05, 2015 Propensity to adverse reactions to drug (disorder) EruptionAsthma finding [facility] VISN 15 PENICILLIN 2009 Propensity to adverse reactions to drug (disorder) Swelling [facility] SEASONAL ALLERGIES 2009 Propensity to adverse reactio ns (disorder) Itching of eyeRhinitis [facility] Medications: VA dispensed (-15 months) and Non-VA Documented (Obtained Outside A) Section Date Range: 1) prescriptions processed by a VA pharmacy in the last 15 m [facility], and 2) all medications recorded in the NE medical record as "non-VA medic ations". Pharmacy terms refer to NE pharmacy's work on prescriptions. VA patient s are advised to take their medications as instructed by their health care team. The data comes from all NE treatment facilities. Glossary of Pharmacy Terms:Active = A prescription that can be filled at the local NE pharmacy.Active: On Hold = An active prescription that will not be filled until pharmacy resolves the issue.Active: Susp = An active prescription that is not scheduled to be filled yet.Clinic Order = A medication received during a visit to a NE clinic or emergency department (currently not available).Discontinued [...] may be a prescription from either the NE or other providers that was filled outside the NE. Or, it may be an over the [...] Non-VA Documented by: ELIZABET CHENGume nted at: [facility] ACETAMINOPHEN 650MG TAB,SA Non-VA TAKE ONE TABLET BY MOUTH EVERY 6 HOURS NEEDED Non-VA Documented by: MAGDA HAGERume nted at: [facility] ALBUTEROL SO4 90MCG/ACTUAT (CFC-F) INHL,ORAL,8.5GM Non-VA INHALE 2 PUFFS BY MOUTH PRN Non-VA Documented by: RAFFI ENGLISH nted at: [facility] APIXABAN 5MG TAB Non- VA TAKE ONE TABLET BY MOUTH TWO TIMES A DAY Non-VA Documented by: NOY BARRume nted at: CADEN RICE [facility] ASPIRIN 81MG TAB,CHEWABLE Non-VA CHEW ONE TABLET BY MOUTH AT BEDTIME Non-VA Documented by: GARTH MCNEAL nted at: [facility] BISACODYL 5MG TAB,EC Non -VA TAKE ONE TABLET BY MOUTH ONCE A DAY NEEDED Non-VA Documented by: NOY BARR nted at: [facility] CALCIUM 600MG ( CARBONATE)/VITAMIN D 200UNT TAB Non-VA TAKE ONE TABLET BY MOUTH TWICE A DAY Non-VA Documented by: DARRYL MENG nted at: [facility] CALCIUM ACETATE CAP,ORAL Non-VA TAKE BY MOUTH TWO TIMES A DAY Non-VA Documented by: WOLF PATELume nted at: [facility] CHOLECALCIFEROL 1000UNT TAB Non-VA TAKE ONE TABLET BY MOUTH ONCE A DAY Non-VA Documented by: NOY BARRume nted at: [facility] CHOLECALCIFEROL 1000UNT TAB Non-VA TAKE ONE TABLET BY MOUTH TWICE A DAY Non-VA Documented by: DARRYL MENGume nted at: [facility] COENZYME Q10 CAP/TAB Non -VA TAKE 1 CAP/TAB BY MOUTH EVERY DAY Non-VA Documented by: QUITA ENG nted at: [facility] COENZYME Q10 CAP/TAB Non -VA TAKE BY MOUTH EVERY MORNING Non- VA Documented by: WOLF PATEL nted at: [facility] FESOTERODINE FUMARATE 4MG TAB,SA Non-VA TAKE ONE TABLET BY MOUTH ONCE A DAY Non-VA Documented by: NOY BARR nted at: [facility] FISH OIL (NON-VA MED) CAP/TAB Non-VA TAKE 2000MG BY MOUTH EVERY MORNING Non-VA Documented by: RAFFI ENGLISH nted at: [facility] GUAIFENESIN 100MG/5ML (SF & AF) LIQUID Non-VA TAKE 1 TEASPOONFUL BY MOUTH EVERY MORNING Non-VA Documented by: WOLF PATEL nted at: [facility] MULTIVITAMINS CAP/TAB No n-VA TAKE ONE TABLET BY MOUTH EVERY MORNING Non-VA Documented by: MAGDA HAGER nted at: [facility] TRAZODONE HCL 50MG TAB N on-VA TAKE 1.5 TABLETS BY MOUTH AT BEDTIME Non-VA Documented by: NOY BARR nted at: [facility] Problems (Conditions): All historical and current Section Date Range: From patient's date of to the date document was create d. This section includes a list of Problems (Conditions) know n to NE for the patient. It includes both active and inacti ve problems (conditions). The data comes from all NE treatment facilities. Problem Status Problem Code Date of Onset Date of Resolution Comm ent(s) Provider Source Acute asthma Active 097716707 Mar 27, 2016 Entered By: MADHU BRAXTON Comment: Conversion of active ICD9->ICD10 03/27/2016 MADHU BRAXTON [facility] Acute bronchitis Active 58834214 Mar 27, 2016 Entered By: MADHU BRAXTON Comment: Conversion of active ICD9->ICD10 03/27/2016 MADHU BRAXTON [facility] Acute bronchitis (ICD-9-CM 466.0) Active 466.0 ERICKENNETH [facility] Aortic valve regurgitation Active 63617261 Mar 27, 2016 Entered By: MADHU BRAXTON Comment: From Echocardiogram Report on 03/31/2015 MADHU BRAXTON [facility] Aortic valve stenosis Active 29634930 Elmer DEE [facility] Asthma, unspecified (ICD-9-CM 493.90) Active 493.90 SANDRITA TORRES [facility] Atrial fibrillation Active 53226237 DELTAAOMAGDA ABDULLAHI [facility] ATRIAL FIBRILLATION Active 427.31 QUITA ENG [facility] Bilateral tinnitus Active [id number] GRACE SMART [facility] Carcinoma, Renal Cell * (ICD-9-CM 189.0) Active 189.0 [facility] Chronic retirement disease management req uired: complex needs (SNOMED CT 037409082) Active 653445960 DAWN VAZ [facility] Chronic obstructive airway disease Active 65610567 MINI SANTOS [facility] Chronic obstructive lung disease Active 21777136 ELIZABET CHENG [facility] Chronic Obstructive Pulmonary Disease * (ICD-9-CM 496.) Active 496. 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 [facility] 1970 [facility] Coronary heart disease Active 69304771 Emy CHENG [facility] Diabetes * (ICD-9-CM 250.00) Active 250.00 IBIS JAITHE [facility] Elevated Prostate Specific Antigen (PSA) (ICD-9-CM 790.93) Active 7 90.93 [facility] Epistaxis Active 50958411 Mar 27, 2016 E ntered By: MADHU BRAXTON Comment: Conversion of active ICD9->ICD10 03/27/2016 MADUH BRAXTON [facility] Epistaxis (SNOMED CT 34229284) Active 784.7 O LUWOLE,OLAWOLE [facility] Excessive sweating Active 83498210 Mar Entered By: MADHU BRAXTON Comment: Conversion of active ICD9->ICD10 03/27/2016 MADHU BRAXTON [facility] Excessive sweating (SNOMED CT 04705307) Active 780.8 [facility] Exogenous hyperlipemia Active 080874170 MINI HARDEN [facility] Gastroesophageal Reflux Disorder * (ICD-9-CM 530.81) Active 530.81 [facility] Gouty Arthropathy, unspecified (ICD-9-CM 274.00) Active 274.00 MARIA C ARELLANO [facility] H/O: anticoagulant therapy Active 948606724 MAGDA GRIJALVA [facility] HF - Heart failure Active 07300869 OLENA SANTOS [facility] High risk drug monitoring status Active 849199828 MAGDA HAGER [facility] Hyperlipidemia * (ICD-9-CM 272.4) Active 272.4 [facility] Hypertrophy (Benign) of Prostate without Urinary obstr uction (ICD-9-CM 600.00) Active 600.00 [facility] Ischemic heart disease Active 175050208 n 2016 Entered By: MADHU BRAXTON Comment: Conversion of active ICD9->ICD10 03/27/2016 MADHU BRAXTON [facility] Malignant tumor of kidney Active 938647400 Mar 27, 2016 Entered By: MADHU BRAXTON Comment: Conversion of active ICD9->ICD10 03/27/2016 MADHU BRAXTON [facility] Mitral valve regurgitation Active 33287100 Mar 27, 2016 Entered By: MADHU BRAXTON Comment: From Echocardiogram Report on 03/31/2015 MADHU BRAXTON [facility] Obesity Active 459970178 Mar 27, 2016 E ntered By: MADHU BRAXTON Comment: Conversion of active ICD9->ICD10 03/27/2016 MADHU BRAXTON [facility] Obesity * (ICD-9-CM 278.00) Active 278.00 TIM SHAH [facility] Osteoporosis Active 71284782 Mar 27, 2016 Entered By: MADHU BRAXTON Comment: Conversion of active ICD9->ICD10 03/27/2016 MADHU BRAXTON [facility] Osteoporosis * (ICD-9-CM 733.00) Active 733.00 [facility] Personal History of Colonic Polyps (ICD-9-CM V12.72) Active V12.7 2 2009 Entered By: SANDRITA TORRES Comment: per colonoscopy [facility] Rheumatoid arthritis (SNOMED CT 74999801) Active 82825297 WILLIAMS CHUNG [facility] Sensorineural hearing loss, bilateral Active 946924494 GRACE SMART [facility] Systolic heart failure Active 556453487 n 2016 Entered By: MADHU BRAXTON Comment: From Echocardiogram Report on 03/31/2015 MADHU BRAXTON [facility] THERAPEUTIC DRUG MONITORING Active V58.83 JENNIFER SSE,KIDEST-DANIEL A [facility] Type 2 diabetes mellitus Active 05628723 Mar 27, 2016 Entered By: MADHU BRAXTON Comment: Conversion of active ICD9->ICD10 03/27/2016 MADHU BRAXTON [facility] Ventricular hypertrophy Active 605456742 2016 Entered By: MADHU BRAXTON Comment: From Echocardiogram Report on 03/31/2015 MADHU BRAXTON [facility] Arthralgia * (ICD-9-CM 719.40) Inactive 719.40 Feb 182010Jul 06, 2009 Entered By: SANDRITA TORRES Comment: elbows/knees [facility] Atrial fibrillation ([facility] 70829005) - Uns pecified atrial fibrillation (ICD-10-CM Inactive I48.91 Apr 10, 2015 [facility] Dyspnea * (ICD-9-CM 786.05/786.09) Inactive 786.05 Feb 182010 [facility] Epistaxis * (ICD-9-CM 784.7) Inactive 784.7 Mar 15, 2011 GARTH MCNEAL [facility] H/O: anticoagulant therapy ([facility] 34644055 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 Inactive Z79.01 Apr 10, 2015 [facility] Health Examination of Defined Subpopulations (ICD-9-CM V70.5) Inact stan V70.5 Mar 15, 2011 [facility] Hearing loss * (ICD-9-CM 389.9) Inactive 389.9 Mar 15, 2011 [facility] Hemorrhoids * (ICD-9-CM 455.6) Inactive 455.6 Feb 182010Jul 06, 2009 Entered By: SANDRITA TORRES Comment: 1971 [facility] High risk drug monitoring status ([facility] 24 8517696) - Encounter for therapeutic [place] Inactive Z51.81 Apr 10, 2015 [facility] Hypersensitivity * (ICD-9-CM 995.3) Inactive 995.3 Mar 15, 2011 2009 Entered By: SANDRITA TORRES Comment: pcn-local swelling, keflex-hives [facility] Male erectile disorder (ICD-9-CM 302.72/607.84) Inactive 302.72 Mar 15, 2011 [facility] Obesity * (ICD-9-CM 278.00) Inactive 278.00 Mar 15, 2011 [facility] Personal History of Congestive Heart Failure (ICD-9-CM V12.59) I nactive V12.59 Mar 15, 2011 QUITA ENG [facility] Radiology result abnormal Inactive 793.1 Mar 15, 2011 [facility] Renal Cyst (ICD-9-CM 753.10) Inactive 753.10 Mar 15, 2011 NOY RESENDIZ [facility] Screening for other specified conditions (ICD-9-CM V82.89) Inactive V82.89 Mar 15, 2011 2009 Entered By: SANDRITA TORRES Comment: ptsd [facility] Subjective tinnitus (ICD-9-CM 388.31) Inactive 388.31 De c 2010 [facility] Radiology Reports: +/- 30 days of the encounter No Data Provided for This Section Pathology Reports: +/- 30 days of the encounter No Data Provided for This Section Encounter Notes: All associated encounter notes This section contains the clinical notes associated to the Encounter. Date/Time Encounter Note(s) Provider Source Dec 15, 2018 11:26 AM NONVA NOTE: LOCAL TITLE: COMMUNITY CARE-SCHEDULING STANDARD TITLE: NONVA NOTE DATE OF NOTE: DEC 15, 2018@11:26 ENTRY DATE: DEC 15, 2018@11:26:12 AUTHOR: MADELAINE FOX COSIGNER: URGENCY: STATUS: COMPLETED Patient Centered Community Care (PC3) Program [facility] Approval for Medical Care VA-Form [id number] Certain protected health information (PHI) may be enclosed; specifically information related to Drug Abuse, Alcoholism or Alcohol Abuse, Sickle Cell Anemia, and Human Immunodeficiency Virus (HIV). This specific PHI may NOT be re-disclosed or used by the recipient person or office for any purpose other than that for which the disclosure was made. [Ref. 38 [facility] 7332(b)(2)(H)(ii)] The information is b eing disclosed by NE only for the treatment and care of the named patient in the health record. Accounting of disclosure must be maintained when required. Referral Urgency: Routine Indicate time frame for appointment: Clinically Indicated Date (PENG): Nov Category of Care/Type of Specialty: podiatry Type of Specialist: podiatry Type of Service/Procedure: Pain in unspecified ankle and joints of unspecified foot(ICD-10-CM M25.579) [facility] Office of Community Care - Standardized Episode of Care Podiatry DS SEOC ID:[email or web address] Description:This authorization covers services associated with all medical care listed below for the referred condition. Duration:90 days Procedural Overview: 1. Initial outpatient evaluation and treatment for the referred condition per consult 2. Diagnostic x-rays as clinically required 3. In-clinic procedures as clinically required (to include, but not limited to: nail debridement, callus debridement, neuroma injections, plantar fasciitis injections, nail avulsions) 4. Follow up visit for this episode of care Please visit the [facility] Storefront www.[place]/COMMUNITYCARE/ providers/index.asp for additional resources and requirements pertaining to the following Pharmacy prescribing requirements Durable Medical Equipment (DME), Prosthetics, and Orthotics prescribing requirements Precertification (PRCT) process requirements Request for Services (RFS) requirements Number of Visits, Frequency, and Duration: Duration:90 days [place] or [facility] Preferred Provider Name and Contact Information: Eligibility Verification: As the authorized NE registered representative, I hereby confirm that the is eligible for Community Care services. The 's basic eligibility was verified on Nov. Contact the Facility Community Care Office first to provide information to the VA or to reach a VA ordering provider. All contact from the contractor will be documented in the [place]'s record by the [facility] community Care and the VA provider will be notified for awareness. Report all Critical Findings related to this authorization to the issuing office below. All other questions regarding this authorization should be directed to: [phone] Facility: [facility] Office of Community Care (OCC) Contact:praveen platt [facility] Office of Community Care (OCC) Robotic Maintenance Technician or Equivalent: Name: Jeronimo Nathan Title: Nurse Robotic Maintenance Technician [facility] Contact Number (Normal Business Hours): [phone] AOD/Emergency Contact After Hours Number: [phone] From Station Number: [id number] Facility Name: [facility] [facility] [address] Address: [address] [place] [address] City: [place] State: [place] Zip: [address] [place] Information: Name: BRIAN CORDERO JR : Jun SSN: [id number] Address: [facility] [employer] [facility], [place] [address] In accordance with 38 CFR 17.7898-7956, [place] will pay for non-VA hospital care and medical services that are authorized by NE for Veterans who are determined by NE to meet the Veterans Choice Program eligibility criteria set forth by section 101 of the Act and 38 CFR 17.1510 and any other eligibility standards that may apply to particular services (such as health care for newborns of Veterans under 38 CFR 17.38(a)(xiv) and dental benefits under 17.160-17.169). /kannan/ MADELAINE FOX MSA Signed: 12/15/2018 11:28 MADELAINE FOX [facility]
--- OUTSIDE RECORDS SUMMARY | 2019-10-02 07:22 | XMS REPORT | Encounter Summary ---
Author Author Department [facility], [place] Organization Department of [facility] Address [address] [place] [address] Phone Unavailable Care Team Providers Care Scudding Inspector Name Role Phone ELIZABET CHENG PCP Unavailable [...] Name Patient's Relationship to Policy Clark AETNA [facility] ([facility]) MEDICARE ADVANTAGE [facility] ([facility]) Mar 20, 2019 00 [phone] [id number] CORDEROBRIAN PATIENT [facility] ([facility]) MEDICARE ADVANTAGE [facility] ([facility]) Mar 20 8 [id number] [phone] BRIAN CORDERO JR PATIENT MEDICARE (WN) MEDICARE (M) PART B Sep 17, 2008 PART B [id number] [phone] CONSUELO LOCKEBRIAN PATIENT MEDICARE (WN) MEDICARE (M) PART A Jun 18, 2005 PART A [id number] [phone] CONSUELO LOCKEBRIAN PATIENT MEDICARE PART D ([facility]) MEDICARE (M) PART D Nov 19, 2015 PART D [id number] BRIAN CORDERO JR PATIENT MEDICARE PART D ([facility]) MEDICARE (M) PART D Sep 17, 2009 PART D [id number] BRIAN CORDERO JR PATIENT [facility] (WNR) MEDICARE ADVANTAGE [facility] (WNR) Sep 17, 2009 [facility] [id number] BRIAN CORDERO JR PATIENT Selected Encounter This section includes the information on record at [place] for the Encounter. Date/Time Encounter Type Encounter Description Reason Provider Source Dec 20, 2018 01:42 PM Outpatient Encounter COMMUNITY CARE CONSULT [facility], [place] 15 IHE Encounter Template Text not used by [place] Assessments - Encounter Diagnoses No Data Provided for This Section Plan of Treatment: Future Appointments (+ 6 months) and Future Tests (+/- 45 day s) The Plan of Treatment section includes future care activities for the patient fr om all [place] treatment facilities. This section includes future appointments and fu ture orders which are active, pending or scheduled. Future Appointments This section includes appointments that were scheduled t o occur 6 months from the date of the Encounter, up to a maximum of 20 appointme nts. The data comes from all [place] treatment [facility]. Appointment Date/Time Appointment Type Appointment Facili ty [...] the Encounter. The data comes from all [place] treatment [facility]. Test Date/Time Test Type Test Details Facility Name Nov 29, 2018 12:00 AM Laboratory - Chemistry Order OCCULT BL OOD FIT X1 SCREEN STOOL FECES SP KLEVER RUCKER Nov 30, 2018 03:25 PM Consult Order [facility] CARE-[place] [id number] Cons General Worker's Choice KLEVER RUCKER Surgical Procedures: All associated to the encounter No Data Provided for This Section Lab Results: +/- 30 days of the encounter This section includes the Chemistry and Hematology Lab R esults on record with [place] for the patient. Radiology Reports and Pathology Report s are provided separately, in subsequent sections. Lab Results This section contains the Chemistry/Hematology Results kwabena t were resulted 30 days before or 30 days after the date of the Encounter. Date/Time Source Result Type Result - Unit Interpretation Reference Range Comment Nov 29, 2018 08:56 AM [facility] CBC & DIFF Specimen Type: BLOOD [...] 0.2 % Nov 29, 2018 08:56 AM [facility] COMPREHENSIVE METABOLIC PA VIVIEN Specimen Type: [...] of a patient's completed or amen ded [place] Advance and Rescinded Directives. The entries below indicate that a direc tive exists for the patient, but an actual copy is not included with this docume nt. The data comes from all [place] facilities. Date Advance Directives Provider Source Oct 13, 2017 ADVANCE DIRECTIVE DELVIN VUONG [facility] Apr 01, 2010 ADMINISTRATIVE NOTE DAY CLEMENTS [facility] Dec 16, 2009 ADMINISTRATIVE NOTE HARDEEP YOD[facility] July 20, 2009 ADVANCE DIRECTIVE NICOLASA PATEL [facility] July 20, 2009 ADVANCE DIRECTIVE BUTCH MAJOR [facility] Jul 11, 2009 ADVANCE DIRECTIVE DISCUSSION EARNEST HENDERSON [facility] Jun 17, 2009 ADMINISTRATIVE NOTE MYRA BANDA [facility] Allergies and Adverse Reactions (ADRs): All historical and current Section Date Range: From patient's date of to the date document was create d. This section includes Allergies and Adverse Reactions (ADR s) on record with VA for the patient. The data comes from a ll [place] treatment facilities. It does not list Allergies/ADRs that were removed or entered in error. Some allergies/ADRs may be reported in t he Immunization section. Allergen Event Date Event Type Reaction(s) Severity Source CIPROFLOXACIN Nov 05, 2015 Propensity to adverse reactions to drug (disorder) [facility] CIPROFLOXACIN Mar 14, 2011 Propensity to adverse reactions to drug (disorder) Urticaria [facility] KEFLEX Nov 05, 2015 Propensity to adverse reactions to drug (disorder) [facility] KEFLEX 2009 Propensity to adverse reactions to drug (disorder) Urticaria [facility] METHOTREXATE Nov 05, 2015 Propensity to adverse reactions to drug (disorder) EruptionAsthma finding [facility], [facility] 15 METHOTREXATE Jan 03, 2013 Propensity to adverse reactions to drug ( disorder) [facility] PENICILLIN Nov 05, 2015 Propensity to adverse reactions to drug (disorder) EruptionAsthma finding [facility] VISN 15 PENICILLIN 2009 Propensity to adverse reactions to drug (disorder) Swelling [facility] SEASONAL ALLERGIES 2009 Propensity to adverse reactio ns (disorder) Itching of eyeRhinitis [facility] Medications: VA dispensed (-15 months) and Non-VA Documented (Obtained Outside A) Section Date Range: 1) prescriptions processed by a VA pharmacy in the last 15 m [facility], and 2) all medications recorded in the [place] medical record as "non-VA medic ations". Pharmacy terms refer to [place] pharmacy's work on prescriptions. VA patient s are advised to take their medications as instructed by their health care team. The data comes from all [place] treatment facilities. Glossary of Pharmacy Terms:Active = A prescription that can be filled at the local [place] pharmacy.Active: On Hold = An active prescription that will not be filled until pharmacy resolves the issue.Active: Susp = An active prescription that is not scheduled to be filled yet.Clinic Order = A medication received during a visit to a [place] clinic or emergency department (currently not available).Discontinued [...] may be a prescription from either the [place] or other providers that was filled outside the [place]. Or, it may be an over the [...] Non-VA Documented by: ELIZABET CHENGume nted at: [facility] ACETAMINOPHEN 650MG TAB,SA Non-VA TAKE ONE TABLET BY MOUTH EVERY 6 HOURS NEEDED Non-VA Documented by: MAGDA HAGERume nted at: [facility] ALBUTEROL SO4 90MCG/ACTUAT (CFC-F) INHL,ORAL,8.5GM Non-VA INHALE 2 PUFFS BY MOUTH PRN Non-VA Documented by: RAFFI ENGLISH nted at: [facility] APIXABAN 5MG TAB Non- VA TAKE ONE TABLET BY MOUTH TWO TIMES A DAY Non-VA Documented by: NOY BARRume nted at: CADEN RICE [facility] ASPIRIN 81MG TAB,CHEWABLE Non-VA CHEW ONE TABLET BY MOUTH AT BEDTIME Non-VA Documented by: GARTH MCNEAL nted at: [facility] BISACODYL 5MG TAB,EC Non -VA TAKE ONE TABLET BY MOUTH ONCE A DAY NEEDED Non-VA Documented by: NOY BARR nted at: [facility] CALCIUM 600MG ( CARBONATE)/VITAMIN D 200UNT TAB Non-VA TAKE ONE TABLET BY MOUTH TWICE A DAY Non-VA Documented by: DARRYL MENG nted at: [facility] CALCIUM ACETATE CAP,ORAL Non-VA TAKE BY MOUTH TWO TIMES A DAY Non-VA Documented by: WOLF PATELume nted at: [facility] CHOLECALCIFEROL 1000UNT TAB Non-VA TAKE ONE TABLET BY MOUTH ONCE A DAY Non-VA Documented by: NOY BARRume nted at: [facility] CHOLECALCIFEROL 1000UNT TAB Non-VA TAKE ONE TABLET BY MOUTH TWICE A DAY Non-VA Documented by: DARRYL MENGume nted at: [facility] COENZYME Q10 CAP/TAB Non -VA TAKE 1 CAP/TAB BY MOUTH EVERY DAY Non-VA Documented by: QUITA ENG nted at: [facility] COENZYME Q10 CAP/TAB Non -VA TAKE BY MOUTH EVERY MORNING Non- VA Documented by: WOLF PATEL nted at: [facility] FESOTERODINE FUMARATE 4MG TAB,SA Non-VA TAKE ONE TABLET BY MOUTH ONCE A DAY Non-VA Documented by: NOY BARR nted at: [facility] FISH OIL (NON-VA MED) CAP/TAB Non-VA TAKE 2000MG BY MOUTH EVERY MORNING Non-VA Documented by: RAFFI ENGLISH nted at: [facility] GUAIFENESIN 100MG/5ML (SF & AF) LIQUID Non-VA TAKE 1 TEASPOONFUL BY MOUTH EVERY MORNING Non-VA Documented by: WOLF PATEL nted at: [facility] MULTIVITAMINS CAP/TAB No n-VA TAKE ONE TABLET BY MOUTH EVERY MORNING Non-VA Documented by: MAGDA HAGER nted at: [facility] TRAZODONE HCL 50MG TAB N on-VA TAKE 1.5 TABLETS BY MOUTH AT BEDTIME Non-VA Documented by: NOY BARR nted at: [facility] Problems (Conditions): All historical and current Section Date Range: From patient's date of to the date document was create d. This section includes a list of Problems (Conditions) know n to [place] for the patient. It includes both active and inacti ve problems (conditions). The data comes from all [place] treatment facilities. Problem Status Problem Code Date of Onset Date of Resolution Comm ent(s) Provider Source Acute asthma Active 979419083 Mar 27, 2016 Entered By: MADHU BRAXTON Comment: Conversion of active ICD9->ICD10 03/27/2016 MADHU BRAXTON [facility] Acute bronchitis Active 80993177 Mar 27, 2016 Entered By: MADHU BRAXTON Comment: Conversion of active ICD9->ICD10 03/27/2016 MADHU BRAXTON [facility] Acute bronchitis (ICD-9-CM 466.0) Active 466.0 ERICKENNETH [facility] Aortic valve regurgitation Active 87239583 Mar 27, 2016 Entered By: MADHU BRAXTON Comment: From Echocardiogram Report on 03/31/2015 MADHU BRAXTON [facility] Aortic valve stenosis Active 82276694 Elmer DEE [facility] Asthma, unspecified (ICD-9-CM 493.90) Active 493.90 SANDRITA TORRES [facility] Atrial fibrillation Active 09371935 DELTAAOMAGDA ABDULLAHI [facility] ATRIAL FIBRILLATION Active 427.31 QUITA ENG [facility] Bilateral tinnitus Active [id number] GRACE SMART [facility] Carcinoma, Renal Cell * (ICD-9-CM 189.0) Active 189.0 [facility] Chronic penitentiary disease management req uired: complex needs (SNOMED CT 790021301) Active 466936780 DAWN VAZ [facility] Chronic obstructive airway disease Active 64404082 MINI SANTOS [facility] Chronic obstructive lung disease Active 70528018 ELIZABET CHENG [facility] Chronic Obstructive Pulmonary Disease * (ICD-9-CM 496.) Active 496. 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 mi 1970 [facility] Coronary heart disease Active 82200246 Emy CHENG [facility] Diabetes * (ICD-9-CM 250.00) Active 250.00 [facility] Elevated Prostate Specific Antigen (PSA) (ICD-9-CM 790.93) Active 7 90.93 [facility] Epistaxis Active 45668241 Mar 27, 2016 E ntered By: MADHU BRAXTON Comment: Conversion of active ICD9->ICD10 03/27/2016 MADHU BRAXTON [facility] Epistaxis (SNOMED CT 65345621) Active 784.7 O LUWOLE,OLAWOLE [facility] Excessive sweating Active 63259808 Mar Entered By: MADHU BRAXTON Comment: Conversion of active ICD9->ICD10 03/27/2016 MADHU BRAXTON [facility] Excessive sweating (SNOMED CT 09219435) Active 780.8 [facility] Exogenous hyperlipemia Active 517884514 MINI HARDEN [facility] Gastroesophageal Reflux Disorder * (ICD-9-CM 530.81) Active 530.81 [facility] Gouty Arthropathy, unspecified (ICD-9-CM 274.00) Active 274.00 MARIA C ARELLANO [facility] H/O: anticoagulant therapy Active 496176336 MAGDA GRIJALVA [facility] HF - Heart failure Active 34380421 OLENA SANTOS [facility] High risk drug monitoring status Active 745768733 MAGDA HAGER [facility] Hyperlipidemia * (ICD-9-CM 272.4) Active 272.4 [facility] Hypertrophy (Benign) of Prostate without Urinary obstr uction (ICD-9-CM 600.00) Active 600.00 [facility] Ischemic heart disease Active 009983263 n 2016 Entered By: MADHU BRAXTON Comment: Conversion of active ICD9->ICD10 03/27/2016 MADHU BRAXTON [facility] Malignant tumor of kidney Active 119486555 Mar 27, 2016 Entered By: MADHU BRAXTON Comment: Conversion of active ICD9->ICD10 03/27/2016 MADHU BRAXTON [facility] Mitral valve regurgitation Active 45226522 Mar 27, 2016 Entered By: MADHU BRAXTON Comment: From Echocardiogram Report on 03/31/2015 MADHU BRAXTON [facility] Obesity Active 550003557 Mar 27, 2016 E ntered By: MADHU BRAXTON Comment: Conversion of active ICD9->ICD10 03/27/2016 MADHU BRAXTON [facility] Obesity * (ICD-9-CM 278.00) Active 278.00 TIM SHAH [facility] Osteoporosis Active 97045234 Mar 27, 2016 Entered By: MADHU BRAXTON Comment: Conversion of active ICD9->ICD10 03/27/2016 MADHU BRAXTON [facility] Osteoporosis * (ICD-9-CM 733.00) Active 733.00 [facility] Personal History of Colonic Polyps (ICD-9-CM V12.72) Active V12.7 2 2009 Entered By: SANDRITA TORRES Comment: per colonoscopy [facility] Rheumatoid arthritis (SNOMED CT 24800061) Active 63658939 WILLIAMS CHUNG [facility] Sensorineural hearing loss, bilateral Active 158661733 GRACE SMART [facility] Systolic heart failure Active 027701659 n 2016 Entered By: MADHU BRAXTON Comment: From Echocardiogram Report on 03/31/2015 MADHU BRAXTON [facility] THERAPEUTIC DRUG MONITORING Active V58.83 JENNIFER SSE,KIDEST-DANIEL A [facility] Type 2 diabetes mellitus Active 44936613 Mar 27, 2016 Entered By: MADHU BRAXTON Comment: Conversion of active ICD9->ICD10 03/27/2016 MADHU BRAXTON [facility] Ventricular hypertrophy Active 298608682 2016 Entered By: MADHU BRAXTON Comment: From Echocardiogram Report on 03/31/2015 MADHU BRAXTON [facility] Arthralgia * (ICD-9-CM 719.40) Inactive 719.40 Feb 182010Jul 06, 2009 Entered By: SANDRITA TORRES Comment: elbows/knees [facility] Atrial fibrillation ([facility] 46629437) - Uns pecified atrial fibrillation (ICD-10-CM Inactive I48.91 Apr 10, 2015 [facility] Dyspnea * (ICD-9-CM 786.05/786.09) Inactive 786.05 Feb 182010 [facility] Epistaxis * (ICD-9-CM 784.7) Inactive 784.7 Mar 15, 2011 GARTH MCNEAL [facility] H/O: anticoagulant therapy ([facility] 88175795 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 Inactive Z79.01 Apr 10, 2015 [facility] Health Examination of Defined Subpopulations (ICD-9-CM V70.5) Inact stan V70.5 Mar 15, 2011 [facility] Hearing loss * (ICD-9-CM 389.9) Inactive 389.9 Mar 15, 2011 [facility] Hemorrhoids * (ICD-9-CM 455.6) Inactive 455.6 Feb 182010Jul 06, 2009 Entered By: SANDRITA TORRES Comment: 1971 [facility] High risk drug monitoring status ([facility] 24 4054210) - Encounter for therapeutic [place] Inactive Z51.81 Apr 10, 2015 [facility] Hypersensitivity * (ICD-9-CM 995.3) Inactive 995.3 Mar 15, 2011 2009 Entered By: SANDRITA TORRES Comment: pcn-local swelling, keflex-hives [facility] Male erectile disorder (ICD-9-CM 302.72/607.84) Inactive 302.72 Mar 15, 2011 [facility] Obesity * (ICD-9-CM 278.00) Inactive 278.00 Mar 15, 2011 [facility] Personal History of Congestive Heart Failure (ICD-9-CM V12.59) I nactive V12.59 Mar 15, 2011 QUITA ENG [facility] Radiology result abnormal Inactive 793.1 Mar 15, 2011 [facility] Renal Cyst (ICD-9-CM 753.10) Inactive 753.10 Mar 15, 2011 NOY RESENDIZ [facility] Screening for other specified conditions (ICD-9-CM V82.89) Inactive V82.89 Mar 15, 2011 2009 Entered By: SANDRITA TORRES Comment: ptsd [facility] Subjective tinnitus (ICD-9-CM 388.31) Inactive 388.31 De 2010 [facility] Radiology Reports: +/- 30 days of the encounter No Data Provided for This Section Pathology Reports: +/- 30 days of the encounter No Data Provided for This Section Encounter Notes: All associated encounter notes This section contains the clinical notes associated to the Encounter. Date/Time Encounter Note(s) Provider Source Dec 20, 2018 01:42 PM NONVA NOTE: LOCAL TITLE: COMMUNITY CARE-SCHEDULING STANDARD TITLE: NONVA NOTE DATE OF NOTE: DEC 20, 2018@13:42 ENTRY DATE: DEC 20, 2018@13:42:30 AUTHOR: EJ LEONARD EXP COSIGNER: URGENCY: STATUS: COMPLETED Patient Centered Community Care (PC3) Program Department of [facility] Choice Approval for Medical Care VA-Form 10-0386 Certain protected health information (PHI) may be enclosed; specifically information related to Drug Abuse, Alcoholism or Alcohol Abuse, Sickle Cell Anemia, and Human Immunodeficiency Virus (HIV). This specific PHI may NOT be re-disclosed or used by the recipient person or office for any purpose other than that for which the disclosure was made. [Ref. 38 [facility] 7332(b)(2)(H)(ii)] The information is b eing disclosed by [place] only for the treatment and care of the named patient in the health record. Accounting of disclosure must be maintained when required. Referral Urgency: Routine Indicate time frame for appointment: Clinically Indicated Date (PENG): Nov Category of Care/Type of Specialty: Audiology Type of Specialist: Director Of Retail Marketing Type of Service/Procedure: Procedural Overview: 1. Initial outpatient evaluation and treatment for a comprehensive diagnostic audiologic evaluation for the referred condition indicated on the consult 2. Hearing aid fitting 3. Follow-up visits for this episode of care Please visit the [facility] Storefront [email or web address].gov/[email or web address]/index.[email or web address] for additional resources and requirements pertaining to the following Pharmacy prescribing requirements Durable Medical Equipment (DME), Prosthetics, and Orthotics prescribing requirements Precertification (PRCT) process requirements Request for Services (RFS) requirements [place] Number of Visits, Frequency, and Duration: Duration:240 days or [facility] Preferred Provider Name and Contact Information: Eligibility Verification: As the authorized [place] in store marketing representative, I hereby confirm that the [place] is eligible for Community Care services. The [place]'s basic eligibility was verified on Nov. Contact the Facility Community Care Office first to provide information to the VA or to reach a VA ordering provider. All contact from the contractor will be documented in the 's record by the [facility] community Care and the VA provider will be notified for awareness. Report all Critical Findings related to this authorization to the issuing office below. All other questions regarding this authorization should be directed to: [phone] Facility: [facility] Office of Community Care (OCC) Contact: Diego Aguilar [facility] Office of Community Care (OCC) Business Support Assistant or Equivalent: Name: Jeronimo Nathan Title: Nurse Business Support Assistant [facility] Contact Number (Normal Business Hours): [phone] AOD/Emergency Contact After Hours Number: [phone] From Station Number: [id number] Facility Name: Caden Rice [facility] [address] Address: [address] [facility] City: [place] State: [place] Zip: [address] [place] Information: Name: BRIAN CORDERO JR : Jun SSN: [id number] Address: [address] [place] [address] In accordance with 38 CFR 17.0862-4579, [place] will pay for non-VA hospital care and medical services that are authorized by [place] for Veterans who are determined by [place] to meet the Veterans Choice Program eligibility criteria set forth by section 101 of the Act and 38 CFR 17.1510 and any other eligibility standards that may apply to particular services (such as health care for newborns of Veterans under 38 CFR 17.38(a)(xiv) and dental benefits under 17.160-17.169). /kannan/ EJ LEONARD [facility] Signed: 12/20/2018 13:44 EJ LEONARD [facility]
--- OUTSIDE RECORDS SUMMARY | 2019-10-02 07:22 | XMS REPORT | Encounter Summary ---
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 Name Role Phone ELIZABET CHENG PCP Unavailable [...] Name Patient's Relationship to Policy Clark [employer] [facility] MEDICARE ADVANTAGE [facility] Mar 20, 2019 00 [id number] BRIAN CORDERO PATIENT COVENTRY ADVANTRA [facility] (WN) MEDICARE ADVANTAGE [facility] Mar 20 8 [id number] [phone] BRIAN CORDERO JR PATIENT MEDICARE (WN) MEDICARE (M) PART B Sep 17, 2008 PART B [id number] BRIAN CORDERO JR PATIENT MEDICARE (WN) MEDICARE (M) PART A Jun 18, 2005 PART A [id number] [phone] BRIAN CORDERO JR PATIENT MEDICARE PART D (WN) MEDICARE (M) PART D Nov 19, 2015 PART D [id number] BRIAN CORDERO JR PATIENT MEDICARE PART D (WNR) MEDICARE (M) PART D Sep 17, 2009 PART D [id number] BRIAN CORDERO JR PATIENT [facility] (WNR) MEDICARE ADVANTAGE [facility] (WNR) Sep 17, 2009 [facility] [id number] BRIAN CORDERO JR PATIENT Selected Encounter This section includes the information on record at [place] for the Encounter. Date/Time Encounter Type Encounter Description Reason Provider Source Jan 14, 2019 08:59 AM Outpatient Encounter PRIMARY CARE/MEDICINE [facility] IHE Encounter Template Text not used by [place] Assessments - Encounter Diagnoses No Data Provided for This Section Plan of Treatment: Future Appointments (+ 6 months) and Future Tests (+/- 45 day s) The Plan of Treatment section includes future care activities for the patient fr om all [place] treatment facilities. This section includes future appointments and fu ture orders which are active, pending or scheduled. Future Appointments This section includes appointments that were scheduled t o occur 6 months from the date of the Encounter, up to a maximum of 20 appointme nts. The data comes from all [place] treatment facilities. Appointment Date/Time Appointment Type Appointment Facili ty Name Jan 31, 2019 02:00 PM AMBULATORY - NONE [facility] Feb 26, 2019 02:00 PM AMBULATORY - NONE [facility] GARCÍA C Active, Pending, and Scheduled Orders This [...] the Encounter. The data comes from all [place] treatment facilities. Test Date/Time Test Type Test Details Facility Name Nov 30, 2018 03:25 PM Consult Order [facility] [id number] Cons Fire [place] [facility] Surgical Procedures: All associated to the encounter [...] and tobacco- related health factors from the [place] facility where the Encounter took place. Current Smoking Status This section includes the most current smoking, or tobacco -related health factor, from the DE facility where the Encounter took place. Date/Time Current Smoking Status Comment Facility Jun 13, 2018 03:20 PM VA-TOBACCO QUIT 15 YRS OR MORE [facility] Tobacco Use History This section includes a history of the smoking, or tobacco -related health factors, that were collected on or before the date of the Encoun ter. The data comes from the DE facility where the Encounter took place. Date/Time Smoking Status/Tobacco Use Comment Edmundo mims Jun 13, 2018 03:20 PM VA-TOBACCO QUIT 15 YRS OR MORE [facility] Nov 15, 2016 08:28 AM NON-TOBACCO USER [facility] Nov 05, 2015 09:41 AM NON-TOBACCO USER [facility] Advance Directives: All historical and current Section [...] docume nt. The data comes from all [place] facilities. Date Advance Directives Provider Source Oct 13, 2017 ADVANCE DIRECTIVE DELVIN VUONG [facility] Apr 01, 2010 ADMINISTRATIVE NOTE DAY CLEMENTS [facility] Dec 16, 2009 ADMINISTRATIVE NOTE HARDEEP YODER [facility] July 20, 2009 ADVANCE DIRECTIVE NICOLASA PATEL [facility] July 20, 2009 ADVANCE DIRECTIVE BUTCH MAJOR [facility] Jul 11, 2009 ADVANCE DIRECTIVE DISCUSSION EARNEST HENDERSON [facility] Jun 17, 2009 ADMINISTRATIVE NOTE MYRA BANDA [facility] Allergies and Adverse Reactions (ADRs): All historical and current Section Date Range: From patient's date of to the date document was create d. This section includes Allergies and Adverse Reactions (ADR s) on record with VA for the patient. The data comes from a ll [place] treatment facilities. It does not list Allergies/ADRs that were removed or entered in error. Some allergies/ADRs may be reported in t he Immunization section. Allergen Event Date Event Type Reaction(s) Severity Source CIPROFLOXACIN Nov 05, 2015 Propensity to adverse reactions to drug (disorder) Asthma findingEruption [facility] CIPROFLOXACIN Mar 14, 2011 Propensity to adverse reactions to drug (disorder) Urticaria [facility] KEFLEX Nov 05, 2015 Propensity to adverse reactions to drug (disorder) Asthma findingEruption [facility] 15 KEFLEX 2009 Propensity to adverse reactions to drug (disorder) Urticaria [facility] METHOTREXATE Nov 05, 2015 Propensity to adverse reactions to drug (disorder) EruptionAsthma finding [facility] METHOTREXATE Jan 03, 2013 Propensity to adverse reactions to drug ( disorder) [facility] PENICILLIN Nov 05, 2015 Propensity to adverse reactions to drug (disorder) EruptionAsthma finding [facility], [facility] 15 PENICILLIN 2009 Propensity to adverse reactions to drug (disorder) Swelling [facility] SEASONAL ALLERGIES 2009 Propensity to adverse reactio ns (disorder) Itching of eyeRhinitis [facility] Medications: VA dispensed (-15 months) and Non-VA Documented (Obtained Outside [facility]) Section Date Range: 1) prescriptions processed by a VA pharmacy in the last 15 m [facility], and 2) all medications recorded in the [place] medical record as "non-VA medic ations". Pharmacy terms refer to [place] pharmacy's work on prescriptions. VA patient s are advised to take their medications as instructed by their health care team. The data comes from all [place] treatment facilities. Glossary of Pharmacy Terms:Active = A prescription that can be filled at the local [place] pharmacy.Active: On Hold = An active prescription that will not be filled until pharmacy resolves the issue.Active: Susp = An active prescription that is not scheduled to be filled yet.Clinic Order = A medication received during a visit to a [place] clinic or emergency department (currently not available).Discontinued [...] Documented by: ELIZABET CHENG nted at: [facility] ACETAMINOPHEN 650MG TAB,SA Non-VA TAKE ONE TABLET BY MOUTH EVERY 6 HOURS NEEDED Non-VA Documented by: MAGDA HAGER nted at: [facility] ALBUTEROL SO4 90MCG/ACTUAT (CFC-F) INHL,ORAL,8.5GM Non-VA INHALE 2 PUFFS BY MOUTH PRN Non-VA Documented by: RAFFI ENGLISH nted at: [facility] APIXABAN 5MG TAB Non- VA TAKE ONE TABLET BY MOUTH TWO TIMES A DAY Non-VA Documented by: NOY ABRR nted at: [facility] ASPIRIN 81MG TAB,CHEWABLE Non-VA CHEW ONE TABLET BY MOUTH AT BEDTIME Non-VA Documented by: GARTH MCNEAL nted at: [facility] BISACODYL 5MG TAB,EC Non -VA TAKE ONE TABLET BY MOUTH ONCE A DAY NEEDED Non-VA Documented by: NOY BARR nted at: [facility] CALCIUM 600MG ( CARBONATE)/VITAMIN D 200UNT TAB Non-VA TAKE ONE TABLET BY MOUTH TWICE A DAY Non-VA Documented by: DARRYL MENG nted at: [facility] CALCIUM ACETATE CAP,ORAL Non-VA TAKE BY MOUTH TWO TIMES A DAY Non-VA Documented by: WOLF PATEL nted at: [facility] CHOLECALCIFEROL 1000UNT TAB Non-VA TAKE ONE TABLET BY MOUTH ONCE A DAY Non-VA Documented by: NOY BARR nted at: [facility] CHOLECALCIFEROL 1000UNT TAB Non-VA TAKE ONE TABLET BY MOUTH TWICE A DAY Non-VA Documented by: DARRYL MENG nted at: [facility] COENZYME Q10 CAP/TAB Non -VA TAKE 1 CAP/TAB BY MOUTH EVERY DAY Non-VA Documented by: QUITA ENG nted at: [facility] COENZYME Q10 CAP/TAB Non -VA TAKE BY MOUTH EVERY MORNING Non- VA Documented by: WOLF PATELume nted at: [facility] FESOTERODINE FUMARATE 4MG TAB,SA Non-VA TAKE ONE TABLET BY MOUTH ONCE A DAY Non-VA Documented by: NOY BARRume nted at: [facility] FISH OIL (NON-VA MED) CAP/TAB Non-VA TAKE 2000MG BY MOUTH EVERY MORNING Non-VA Documented by: RAFFI ENGLISHume nted at: [facility] GUAIFENESIN 100MG/5ML (SF & AF) LIQUID Non-VA TAKE 1 TEASPOONFUL BY MOUTH EVERY MORNING Non-VA Documented by: WOLF PATELume nted at: [facility] MULTIVITAMINS CAP/TAB No n-VA TAKE ONE TABLET BY MOUTH EVERY MORNING Non-VA Documented by: MAGDA HAGERume nted at: [facility] TRAZODONE HCL 50MG TAB N on-VA TAKE 1.5 TABLETS BY MOUTH AT BEDTIME Non-VA Documented by: NOY BARRume nted at: [facility] Problems (Conditions): All historical and current Section Date Range: From patient's date of to the date document was create d. This section includes a list of Problems (Conditions) know n to VA for the patient. It includes both active and inacti ve problems (conditions). The data comes from all [place] treatment facilities. Problem Status Problem Code Date of Onset Date of Resolution Comm ent(s) Provider Source Acute asthma Active [id number] Mar 27, 2016 Entered By: MADHU BRAXTON Comment: Conversion of active ICD9->ICD10 03/27/2016 MADHU BRAXTON [facility] Acute bronchitis Active 69725609 Mar 27, 2016 Entered By: MADHU BRAXTON Comment: Conversion of active ICD9->ICD10 03/27/2016 MADHU BRAXTON [facility] Acute bronchitis (ICD-9-CM 466.0) Active 466.0 REYES,IMRAN [facility] Aortic valve regurgitation Active 65141032 Mar 27, 2016 Entered By: MADHU BRAXTON Comment: From Echocardiogram Report on 03/31/2015 MADHU BRAXTON [facility] Aortic valve stenosis Active 78555676 Elmer DEE Elmer [facility] Asthma, unspecified (ICD-9-CM 493.90) Active 493.90 [facility] Atrial fibrillation Active 95829346 NWAOMAGDA ABDULLAHI [facility] ATRIAL FIBRILLATION Active 427.31 QUITA ENG [facility] Bilateral tinnitus Active [id number] GRACE SMART [facility] Carcinoma, Renal Cell * (ICD-9-CM 189.0) Active 189.0 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 [facility] Congestive heart failure Active 81014566 FR DIANNA GRISSOM [facility] Congestive Heart Failure * (ICD-9-CM 428.0) Active 428.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 mi 1970 [facility] Coronary heart disease Active 45811836 Emy CHENG [facility] Diabetes * (ICD-9-CM 250.00) Active 250.00 [facility] Elevated Prostate Specific Antigen (PSA) (ICD-9-CM 790.93) Active 7 90.93 [facility] Epistaxis Active 48917929 Mar 27, 2016 E ntered By: MADHU BRAXTON Comment: Conversion of active ICD9->ICD10 03/27/2016 MADHU BRAXTON GAURAV [facility] Epistaxis (SNOMED CT 06635461) Active 784.7 O LUWOLEJERSON [facility] Excessive sweating Active 48966577 Mar Entered By: MADHU BRAXTON Comment: Conversion of active ICD9->ICD10 03/27/2016 MADHU BRAXTON DHARMESH [facility] Excessive sweating (SNOMED CT 43750995) Active 780.8 GARTH MCNEAL [facility] Exogenous hyperlipemia Active 059533928 YARELY ALMODOVARMINI [facility] Gastroesophageal Reflux Disorder * (ICD-9-CM 530.81) Active 530.81 [facility] Gouty Arthropathy, unspecified (ICD-9-CM 274.00) Active 274.00 MARIA C ARELLANO [facility] H/O: anticoagulant therapy Active 370397892 NWA MAGDA DRUMMOND [facility] HF - Heart failure Active 33060436 OLENA SANTOS [facility] High risk drug monitoring status Active 259985989 NWRITAMAGDA [facility] Hyperlipidemia * (ICD-9-CM 272.4) Active 272.4 [facility] Hypertrophy (Benign) of Prostate without Urinary obstr uction (ICD-9-CM 600.00) Active 600.00 [facility] Ischemic heart disease Active 178930690 2016 Entered By: MADHU BRAXTON Comment: Conversion of active ICD9->ICD10 03/27/2016 MADHU BRAXTON [facility] Malignant tumor of kidney Active 378695089 Mar 27, 2016 Entered By: MADHU BRAXTON Comment: Conversion of active ICD9->ICD10 03/27/2016 MADHU BRAXTON [facility] Mitral valve regurgitation Active 77857013 Mar 27, 2016 Entered By: MADHU BRAXTON Comment: From Echocardiogram Report on 03/31/2015 MADHU BRAXTON [facility] Obesity Active 876724333 Mar 27, 2016 E ntered By: MADHU BRAXTON Comment: Conversion of active ICD9->ICD10 03/27/2016 MADHU BRAXTON [facility] Obesity * (ICD-9-CM 278.00) Active 278.00 TIM SHAH [facility] Osteoporosis Active 84415994 Mar 27, 2016 Entered By: MADHU BRAXTON Comment: Conversion of active ICD9->ICD10 03/27/2016 MADHU BRAXTON [facility] Osteoporosis * (ICD-9-CM 733.00) Active 733.00 SANDRITA TORRES [facility] Personal History of Colonic Polyps (ICD-9-CM V12.72) Active V12.7 2 2009 Entered By: SANDRITA TORRES Comment: per colonoscopy SANDRITA TORRES [facility] Rheumatoid arthritis (SNOMED CT 58263534) Active 21687034 WILLIAMS CHUNG [facility] Sensorineural hearing loss, bilateral Active 476836611 GRACE SMART [facility] Systolic heart failure Active 445356807 Ja n 2016 Entered By: MADHU BRAXTON Comment: From Echocardiogram Report on 03/31/2015 MADHU BRAXTON [facility] THERAPEUTIC DRUG MONITORING Active V58.83 JENNIFER SSE,KIDEST-DANIEL A [facility] Type 2 diabetes mellitus Active 56570771 Mar 27, 2016 Entered By: MADHU BRAXTON Comment: Conversion of active ICD9->ICD10 03/27/2016 MADHU BRAXTON [facility] Ventricular hypertrophy Active 849470103 2016 Entered By: MADHU BRAXTON Comment: From Echocardiogram Report on 03/31/2015 MADHU BRAXTON [facility] Arthralgia * (ICD-9-CM 719.40) Inactive 719.40 Feb 182010Jul 06, 2009 Entered By: SANDRITA TORRES Comment: elbows/knees SANDRITA TORRES [facility] Atrial fibrillation ([facility] 36772268) - Uns pecified atrial fibrillation (ICD-10-CM Inactive I48.91 Apr 10, 2015 TIMMY HAGER [facility] Dyspnea * (ICD-9-CM 786.05/786.09) Inactive 786.05 Feb 182010 [facility] Epistaxis * (ICD-9-CM 784.7) Inactive 784.7 Mar 15, 2011 GARTH MCNEAL [facility] H/O: anticoagulant therapy (SCT 83806220 8) - skilled nursing (current) use of anticoag Inactive Z79.01 Apr 10, 2015 [facility] Health Examination of Defined Subpopulations (ICD-9-CM V70.5) Inact stan V70.5 Mar 15, 2011 [facility] Hearing loss * (ICD-9-CM 389.9) Inactive 389.9 Mar 15, 2011 [facility] Hemorrhoids * (ICD-9-CM 455.6) Inactive 455.6 Feb 182010Jul 06, 2009 Entered By: SANDRITA TORRES Comment: 1972 [facility] High risk drug monitoring status ([facility] 24 4687021) - Encounter for therapeutic [place] Inactive Z51.81 Apr 10, 2015 [facility] Hypersensitivity * (ICD-9-CM 995.3) Inactive 995.3 Mar 15, 2011 2009 Entered By: SANDRITA TORRES Comment: pcn-local swelling, keflex-hives [facility] Male erectile disorder (ICD-9-CM 302.72/607.84) Inactive 302.72 Mar 15, 2011 [facility] Obesity * (ICD-9-CM 278.00) Inactive 278.00 Mar 15, 2011 [facility] Personal History of Congestive Heart Failure (ICD-9-CM V12.59) I nactive V12.59 Mar 15, 2011 QUITA ENG [facility] Radiology result abnormal Inactive 793.1 Mar 15, 2011 [facility] Renal Cyst (ICD-9-CM 753.10) Inactive 753.10 Mar 15, 2011 NOY RESENDIZ [facility] Screening for other specified conditions (ICD-9-CM V82.89) Inactive V82.89 Mar 15, 2011 2009 Entered By: TORRES,CRESENT Comment: ptsd [facility] Subjective tinnitus (ICD-9-CM 388.31) Inactive 388.31 De c 2010 [facility] Radiology Reports: +/- 30 days of the encounter No Data Provided for This Section Pathology Reports: +/- 30 days of the encounter No Data Provided for This Section Encounter Notes: All associated encounter notes This section contains the clinical notes associated to the Encounter. Date/Time Encounter Note(s) Provider Source Jan 14, 2019 08:59 AM ADMINISTRATIVE NOTE: LOCAL TITLE: MO-ADMINISTRATIVE NOTE (BP,O) STANDARD TITLE: ADMINISTRATIVE NOTE DATE OF NOTE: JAN 14, 2019@08:59 ENTRY DATE: JAN 14, 2019@08:59:22 AUTHOR: ELIZABET CHENG EXP COSIGNER: URGENCY: STATUS: COMPLETED reviewed recent lab- sodium sl. low at 134, hgb low at 12.4, fbs is 168, limit sweets and carbs., kidney functions have improved, follow up with pmd dr. kim english, please call or send letter, thank you /kannan/ ELIZABET CHENG [facility]- Signed: 01/14/2019 09:05 Receipt Acknowledged By: 01/14/2019 09:21 /kannan/ YULIYA Vail [facility] STAFF NURSE ELIZABET CHENG OC
--- OUTSIDE RECORDS SUMMARY | 2019-10-02 07:23 | XMS REPORT | Encounter Summary ---
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 Name Role Phone ELIZABET CHENG PCP Unavailable [...] Name Patient's Relationship to Policy Clark AETNA [facility] MEDICARE ADVANTAGE [facility] Mar 20, 2019 00 [id number] CORDEROBRIAN [facility] MEDICARE ADVANTAGE [facility] Mar 20 8 [id number] BRIAN CORDERO JR PATIENT MEDICARE (WN) MEDICARE (M) PART B Sep 17, 2008 PART B [id number] [phone] CONSUELO LOCKEBRIAN PATIENT MEDICARE (WN) MEDICARE (M) PART A Jun 18, 2005 PART A [id number] [phone] CONSUELO LOCKEBRIAN PATIENT MEDICARE PART D ([facility] MEDICARE (M) PART D Nov 19, 2015 PART D [id number] BRIAN CORDERO JR PATIENT MEDICARE PART D ([facility] MEDICARE (M) PART D Sep 17, 2009 PART D [id number] BRIAN CORDERO JR PATIENT [facility] (WNR) MEDICARE ADVANTAGE [facility] (WNR) Sep 17, 2009 [facility] [id number] BRIAN CORDERO JR PATIENT Selected Encounter This section includes the information on record at PA for the Encounter. Date/Time Encounter Type Encounter Description Reason Provider Source Dec 10, 2018 12:00 AM Outpatient Encounter COMMUNITY CARE CONSULT [facility] [place] 15 IHE Encounter Template Text not used by PA Assessments - Encounter Diagnoses No Data Provided for This Section Plan of Treatment: Future Appointments (+ 6 months) and Future Tests (+/- 45 day s) The Plan of Treatment section includes future care activities for the patient fr om all PA treatment facilities. This section includes future appointments and fu ture orders which are active, pending or scheduled. Future Appointments This section includes appointments that were scheduled t o occur 6 months from the date of the Encounter, up to a maximum of 20 appointme nts. The data comes from all PA treatment [facility]. Appointment Date/Time Appointment Type Appointment Facili [...] the Encounter. The data comes from all PA treatment [facility]. Test Date/Time Test Type Test Details Facility Name Nov 29, 2018 12:00 AM Laboratory - Chemistry Order OCCULT BL OOD FIT X1 SCREEN STOOL FECES SP KLEVER RUCKER Nov 30, 2018 03:25 PM Consult Order [facility] CARE-CT [id number] Cons Kitchen And Counter Worker's Choice KLEVER RUCKER Surgical Procedures: All associated to the encounter No Data Provided for This Section Lab Results: +/- 30 days of the encounter This section includes the Chemistry and Hematology Lab R esults on record with PA for the patient. Radiology Reports and Pathology Report s are provided separately, in subsequent sections. Lab Results This section contains the Chemistry/Hematology Results kwabena t were resulted 30 days before or 30 days after the date of the Encounter. Date/Time Source Result Type Result - Unit Interpretation Reference Range Comment Nov 29, 2018 08:56 AM [facility] CBC & DIFF Specimen Type: BLOOD [...] 0.2 % Nov 29, 2018 08:56 AM [facility] COMPREHENSIVE METABOLIC PA VIVIEN Specimen Type: [...] of a patient's completed or amen ded PA Advance and Rescinded Directives. The entries below indicate that a direc tive exists for the patient, but an actual copy is not included with this docume nt. The data comes from all PA facilities. Date Advance Directives Provider Source Oct 13, 2017 ADVANCE DIRECTIVE DELVIN VUONG [facility] Apr 01, 2010 ADMINISTRATIVE NOTE DAY CLEMENTS [facility] Dec 16, 2009 ADMINISTRATIVE NOTE HARDEEP YODER [facility] July 20, 2009 ADVANCE DIRECTIVE NICOLASA PATEL [facility] July 20, 2009 ADVANCE DIRECTIVE BUTCH MAJOR [facility] Jul 11, 2009 ADVANCE DIRECTIVE DISCUSSION EARNEST HENDERSON [facility] Jun 17, 2009 ADMINISTRATIVE NOTE MYRA BANDA [facility] Allergies and Adverse Reactions (ADRs): All historical and current Section Date Range: From patient's date of to the date document was create d. This section includes Allergies and Adverse Reactions (ADR s) on record with VA for the patient. The data comes from a ll PA treatment facilities. It does not list Allergies/ADRs that were removed or entered in error. Some allergies/ADRs may be reported in t he Immunization section. Allergen Event Date Event Type Reaction(s) Severity Source CIPROFLOXACIN Nov 05, 2015 Propensity to adverse reactions to drug (disorder) [facility] CIPROFLOXACIN Mar 14, 2011 Propensity to adverse reactions to drug (disorder) Urticaria [facility] KEFLEX Nov 05, 2015 Propensity to adverse reactions to drug (disorder) [facility] KEFLEX 2009 Propensity to adverse reactions to drug (disorder) Urticaria [facility] METHOTREXATE Nov 05, 2015 Propensity to adverse reactions to drug (disorder) EruptionAsthma finding [facility], [facility] 15 METHOTREXATE Jan 03, 2013 Propensity to adverse reactions to drug ( disorder) [facility] PENICILLIN Nov 05, 2015 Propensity to adverse reactions to drug (disorder) EruptionAsthma finding [facility]IS[facility] 15 PENICILLIN 2009 Propensity to adverse reactions to drug (disorder) Swelling [facility] SEASONAL ALLERGIES 2009 Propensity to adverse reactio ns (disorder) Itching of eyeRhinitis [facility] Medications: VA dispensed (-15 months) and Non-VA Documented (Obtained Outside A) Section Date Range: 1) prescriptions processed by a [facility] pharmacy in the last [facility], and 2) all medications recorded in the PA medical record as "non-VA medic ations". Pharmacy terms refer to PA pharmacy's work on prescriptions. VA patient s are advised to take their medications as instructed by their health care team. The data comes from all PA treatment facilities. Glossary of Pharmacy Terms:Active = A prescription that can be filled at the local PA pharmacy.Active: On Hold = An active prescription that will not be filled until pharmacy resolves the issue.Active: Susp = An active prescription that is not scheduled to be filled yet.Clinic Order = A medication received during a visit to a PA clinic or emergency department (currently not available).Discontinued [...] may be a prescription from either the PA or other providers that was filled outside the PA. Or, it may be an over the [...] Non-VA Documented by: ELIZABET CHENGume nted at: [facility] ACETAMINOPHEN 650MG TAB,SA Non-VA TAKE ONE TABLET BY MOUTH EVERY 6 HOURS NEEDED Non-VA Documented by: MAGDA HAGERume nted at: [facility] ALBUTEROL SO4 90MCG/ACTUAT (CFC-F) INHL,ORAL,8.5GM Non-VA INHALE 2 PUFFS BY MOUTH PRN Non-VA Documented by: RAFFI ENGLISH nted at: [facility] APIXABAN 5MG TAB Non- VA TAKE ONE TABLET BY MOUTH TWO TIMES A DAY Non-VA Documented by: NOY BARRume nted at: [facility]EN [facility]OGUE [facility] ASPIRIN 81MG TAB,CHEWABLE Non-VA CHEW ONE TABLET BY MOUTH AT BEDTIME Non-VA Documented by: GARTH MCNEAL nted at: [facility] BISACODYL 5MG TAB,EC Non -VA TAKE ONE TABLET BY MOUTH ONCE A DAY NEEDED Non-VA Documented by: NOY BARR nted at: [facility] CALCIUM 600MG ( CARBONATE)/VITAMIN D 200UNT TAB Non-VA TAKE ONE TABLET BY MOUTH TWICE A DAY Non-VA Documented by: DARRYL MENG nted at: [facility] CALCIUM ACETATE CAP,ORAL Non-VA TAKE BY MOUTH TWO TIMES A DAY Non-VA Documented by: WOLF PATELume nted at: [facility] CHOLECALCIFEROL 1000UNT TAB Non-VA TAKE ONE TABLET BY MOUTH ONCE A DAY Non-VA Documented by: NOY BARRume nted at: [facility] CHOLECALCIFEROL 1000UNT TAB Non-VA TAKE ONE TABLET BY MOUTH TWICE A DAY Non-VA Documented by: DARRYL MENGume nted at: [facility] COENZYME Q10 CAP/TAB Non -VA TAKE 1 CAP/TAB BY MOUTH EVERY DAY Non-VA Documented by: QUITA ENG nted at: [facility] COENZYME Q10 CAP/TAB Non -VA TAKE BY MOUTH EVERY MORNING Non- VA Documented by: WOLF PATEL nted at: [facility] FESOTERODINE FUMARATE 4MG TAB,SA Non-VA TAKE ONE TABLET BY MOUTH ONCE A DAY Non-VA Documented by: NOY BARR nted at: [facility] FISH OIL (NON-VA MED) CAP/TAB Non-VA TAKE 2000MG BY MOUTH EVERY MORNING Non-VA Documented by: RAFFI ENGLISH nted at: [facility] GUAIFENESIN 100MG/5ML (SF & AF) LIQUID Non-VA TAKE 1 TEASPOONFUL BY MOUTH EVERY MORNING Non-VA Documented by: WOLF PATEL nted at: [facility] MULTIVITAMINS CAP/TAB No n-VA TAKE ONE TABLET BY MOUTH EVERY MORNING Non-VA Documented by: MAGDA HGAER nted at: [facility] TRAZODONE HCL 50MG TAB N on-VA TAKE 1.5 TABLETS BY MOUTH AT BEDTIME Non-VA Documented by: NOY BARR nted at: [facility] Problems (Conditions): All historical and current Section Date Range: From patient's date of to the date document was create d. This section includes a list of Problems (Conditions) know n to PA for the patient. It includes both active and inacti ve problems (conditions). The data comes from all PA treatment facilities. Problem Status Problem Code Date of Onset Date of Resolution Comm ent(s) Provider Source Acute asthma Active 127014932 Mar 27, 2016 Entered By: MADHU BRAXTON Comment: Conversion of active ICD9->ICD10 03/27/2016 MADHU BRAXTON [facility] Acute bronchitis Active 25286118 Mar 27, 2016 Entered By: MADHU BRAXTON Comment: Conversion of active ICD9->ICD10 03/27/2016 MADHU BRAXTON [facility] Acute bronchitis (ICD-9-CM 466.0) Active 466.0 ERICKENNETH [facility] Aortic valve regurgitation Active 81957584 Mar 27, 2016 Entered By: MADHU BRAXTON Comment: From Echocardiogram Report on 03/31/2015 MADHU BRAXTON [facility] Aortic valve stenosis Active 65243130 Elmer DEE [facility] Asthma, unspecified (ICD-9-CM 493.90) Active 493.90 SANDRITA TORRES [facility] Atrial fibrillation Active 54474398 DELTAAOMAGDA ABDULLAHI [facility] ATRIAL FIBRILLATION Active 427.31 QUITA ENG [facility] Bilateral tinnitus Active [id number] GRACE SMART [facility] Carcinoma, Renal Cell * (ICD-9-CM 189.0) Active 189.0 [facility] Chronic senior living disease management req uired: complex needs (SNOMED CT 198939288) Active 104659419 DAWN VAZ [facility] Chronic obstructive airway disease Active 22904529 MINI SANTOS [facility] Chronic obstructive lung disease Active 47029074 ELIZABET CHENG [facility] Chronic Obstructive Pulmonary Disease * (ICD-9-CM 496.) Active 496. 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 1970 [facility] Coronary heart disease Active 68170865 Emy CHENG [facility] Diabetes * (ICD-9-CM 250.00) Active 250.00 IBIS [facility] Elevated Prostate Specific Antigen (PSA) (ICD-9-CM 790.93) Active 7 90.93 [facility] Epistaxis Active 91566587 Mar 27, 2016 E ntered By: MADHU BRAXTON Comment: Conversion of active ICD9->ICD10 03/27/2016 MADHU BRAXTON [facility] Epistaxis (SNOMED CT 50706388) Active 784.7 O LUWOLE,OLAWOLE [facility] Excessive sweating Active 12302928 Mar Entered By: MADHU BRAXTON Comment: Conversion of active ICD9->ICD10 03/27/2016 MADHU BRAXTON [facility] Excessive sweating (SNOMED CT 06179531) Active 780.8 [facility] Exogenous hyperlipemia Active 056161549 MINI HARDEN [facility] Gastroesophageal Reflux Disorder * (ICD-9-CM 530.81) Active 530.81 [facility] Gouty Arthropathy, unspecified (ICD-9-CM 274.00) Active 274.00 MARIA C ARELLANO [facility] H/O: anticoagulant therapy Active 076687495 MAGDA GRIJALVA [facility] HF - Heart failure Active 81633036 OLENA SANTOS [facility] High risk drug monitoring status Active 955737746 MAGDA HAGER [facility] Hyperlipidemia * (ICD-9-CM 272.4) Active 272.4 [facility] Hypertrophy (Benign) of Prostate without Urinary obstr uction (ICD-9-CM 600.00) Active 600.00 [facility] Ischemic heart disease Active 169005702 n 2016 Entered By: MADHU BRAXTON Comment: Conversion of active ICD9->ICD10 03/27/2016 MADHU BRAXTON [facility] Malignant tumor of kidney Active 645557095 Mar 27, 2016 Entered By: MADHU BRAXTON Comment: Conversion of active ICD9->ICD10 03/27/2016 MADHU BRAXTON [facility] Mitral valve regurgitation Active 71650621 Mar 27, 2016 Entered By: MADHU BRAXTON Comment: From Echocardiogram Report on 03/31/2015 MADHU BRAXTON [facility] Obesity Active 805271695 Mar 27, 2016 E ntered By: MADHU BRAXTON Comment: Conversion of active ICD9->ICD10 03/27/2016 MADHU BRAXTON [facility] Obesity * (ICD-9-CM 278.00) Active 278.00 TIM SHAH [facility] Osteoporosis Active 24511041 Mar 27, 2016 Entered By: MADHU BRAXTON Comment: Conversion of active ICD9->ICD10 03/27/2016 MADHU BRAXTON [facility] Osteoporosis * (ICD-9-CM 733.00) Active 733.00 [facility] Personal History of Colonic Polyps (ICD-9-CM V12.72) Active V12.7 2 2009 Entered By: SANDRITA TORRES Comment: per colonoscopy [facility] Rheumatoid arthritis (SNOMED CT 71905129) Active 67887060 WILLIAMS CHUNG [facility] Sensorineural hearing loss, bilateral Active 372471789 GRACE SMART [facility] Systolic heart failure Active 101620819 n 2016 Entered By: MADHU BRAXTON Comment: From Echocardiogram Report on 03/31/2015 MDAHU BRAXTON [facility] THERAPEUTIC DRUG MONITORING Active V58.83 JENNIFER SSE,KIDEST-DANIEL A [facility] Type 2 diabetes mellitus Active 56537596 Mar 27, 2016 Entered By: MADHU BRAXTON Comment: Conversion of active ICD9->ICD10 03/27/2016 MADHU BRAXTON [facility] Ventricular hypertrophy Active 909678531 2016 Entered By: MADHU BRAXTON Comment: From Echocardiogram Report on 03/31/2015 MADHU BRAXTON [facility] Arthralgia * (ICD-9-CM 719.40) Inactive 719.40 Feb 182010Jul 06, 2009 Entered By: SANDRITA TORRES Comment: elbows/knees [facility] Atrial fibrillation ([facility] 01949632) - Uns pecified atrial fibrillation (ICD-10-CM Inactive I48.91 Apr 10, 2015 [facility] Dyspnea * (ICD-9-CM 786.05/786.09) Inactive 786.05 Feb 182010 [facility] Epistaxis * (ICD-9-CM 784.7) Inactive 784.7 Mar 15, 2011 GARTH MCNEAL [facility] H/O: anticoagulant therapy ([facility] 88019655 8) - joint terminal attack controller (current) use of anticoag Inactive Z79.01 Apr 10, 2015 [facility] Health Examination of Defined Subpopulations (ICD-9-CM V70.5) Inact stan V70.5 Mar 15, 2011 [facility] Hearing loss * (ICD-9-CM 389.9) Inactive 389.9 Mar 15, 2011 [facility] Hemorrhoids * (ICD-9-CM 455.6) Inactive 455.6 Feb 182010Jul 06, 2009 Entered By: SANDRITA TORRES Comment: 1971 [facility] High risk drug monitoring status ([facility] 24 1745330) - Encounter for therapeutic [place] Inactive Z51.81 Apr 10, 2015 [facility] Hypersensitivity * (ICD-9-CM 995.3) Inactive 995.3 Mar 15, 2011 2009 Entered By: SANDRITA TORRES Comment: pcn-local swelling, keflex-hives [facility] Male erectile disorder (ICD-9-CM 302.72/607.84) Inactive 302.72 Mar 15, 2011 [facility] Obesity * (ICD-9-CM 278.00) Inactive 278.00 Mar 15, 2011 [facility] Personal History of Congestive Heart Failure (ICD-9-CM V12.59) I nactive V12.59 Mar 15, 2011 QUITA ENG [facility] Radiology result abnormal Inactive 793.1 Mar 15, 2011 [facility] Renal Cyst (ICD-9-CM 753.10) Inactive 753.10 Mar 15, 2011 NOY RESENDIZ [facility] Screening for other specified conditions (ICD-9-CM V82.89) Inactive V82.89 Mar 15, 2011 2009 Entered By: SANDRITA TORRES Comment: ptsd [facility] Subjective tinnitus (ICD-9-CM 388.31) Inactive 388.31 De 2010 [facility] Radiology Reports: +/- 30 days of the encounter No Data Provided for This Section Pathology Reports: +/- 30 days of the encounter No Data Provided for This Section Encounter Notes: All associated encounter notes This section contains the clinical notes associated to the Encounter. Date/Time Encounter Note(s) Provider Source Dec 10, 2018 12:00 AM SCANNED REPORT: LOCAL TITLE: [place]-SCANNED FEE CONSULT STANDARD TITLE: SCANNED REPORT DATE OF NOTE: DEC 10, 2018 ENTRY DATE: DEC 14, 2018@11:35:52 AUTHOR: LIZ JUNG EXP COSIGNER: URGENCY: STATUS: COMPLETED COMMUNITY CARE-OPTOM/BRYCE VISION CARE/12/10/18 Scanned document attached to this note /kannan/ LIZ JUNG [facility] Signed: 12/14/2018 11:35 LIZ JUNG [facility]
--- OUTSIDE RECORDS SUMMARY | 2019-10-02 07:23 | XMS REPORT | Encounter Summary ---
Author Author Department of [facility] rs, ROSCOE Organization Department of [facility] Address [address] [place] [address] Phone Unavailable Care Team Providers Care Talend Etl Developer Name Role Phone ELIZABET CHENG PCP Unavailable [...] Policy Clark AETNA [facility] MEDICARE ADVANTAGE [facility]) Mar 20, 2019 00 [id number] CORDEROBRIAN PATIENT COVENTRY ADVANTRA [facility]) MEDICARE ADVANTAGE [facility] ([facility]) Mar 20 8 [id number] [phone] BRIAN CORDERO JR PATIENT MEDICARE (WN) MEDICARE (M) PART B Sep 17, 2008 PART B [phone] CONSUELO LOCKEBRIAN PATIENT MEDICARE (WN) MEDICARE (M) PART A Jun 18, 2005 PART A [id number] BRIAN CORDERO JR PATIENT MEDICARE PART D (WN) MEDICARE (M) PART D Nov 19, 2015 PART D [id number] BRIAN CORDERO JR PATIENT MEDICARE PART D (WN) MEDICARE (M) PART D Sep 17, 2009 PART D [id number] CONSUELO LOCKEBRIAN PATIENT [facility] ([facility]) MEDICARE ADVANTAGE [facility] (WNR) Sep 17, 2009 [facility] [id number] BRIAN CORDERO JR PATIENT Selected Encounter This section includes the information on record at MD for the Encounter. Date/Time Encounter Type Encounter Description Reason Provider Source Nov 29, 2018 09:30 AM OFFICE/OUTPATIENT VISIT EST PRIMARY CARE/M EDICINE ICD-10-CM J44.9 Chronic obstructive pulmonary disease, unspecified with Provider Comments: Chronic obstructive lung disease ([facility] [id number]) ELIZABET CHENG [facility] IHE Encounter Template Text not used by MD Assessments - Encounter Diagnoses This section includes the primary and secondary diag noses documented for the Encounter. 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 This section includes future appointments and fu ture orders which are active, pending or scheduled. Future Appointments This section includes appointments that were scheduled t o occur 6 months from the date of the Encounter, up to a maximum of 20 appointme nts. The data comes from all MD treatment facilities. Appointment Date/Time Appointment Type Appointment Facili ty Name Jan 02, 2019 11:00 AM AMBULATORY - NONE CADEN Nuñez Jan 31, 2019 02:00 PM AMBULATORY - NONE DAVID RUCKER Feb 26, 2019 02:00 PM AMBULATORY [...] the Encounter. The data comes from all MD treatment facilities. Test Date/Time Test Type Test Details Facility Name Nov 29, 2018 12:00 AM Laboratory - Chemistry Order OCCULT BL OOD FIT X1 SCREEN STOOL FECES SP DAVID CBALEX Nov 30, 2018 03:25 PM Consult Order [id number] Cons Betting Agency Manager's Choice ERNST [facility] Surgical Procedures: All associated to the encounter No Data Provided for This Section Lab Results: +/- 30 days of the encounter This section includes the Chemistry and Hematology Lab R esults on record with MD for the patient. Radiology Reports and Pathology Report s are provided separately, in subsequent sections. Lab Results This section contains the Chemistry/Hematology Results kwabena t were resulted 30 days before or 30 days after the date of the Encounter. Date/Time Source Result Type Result - Unit Interpretation Reference Range Comment Nov 29, 2018 08:56 AM ERNST [facility] CBC & DIFF Specimen Type: BLOOD [...] 0.2 % Nov 29, 2018 08:56 AM ERNST [facility] COMPREHENSIVE METABOLIC PA VIVIEN Specimen Type: [...] EGFR >60 Nov 29, 2018 08:56 AM [facility] LIPID PROFILE(HDL,TRIG,CHO L,LDL) Specimen Type: PLASMA Comment: For eGFR: eGFR results >60 are imprecise. Many variables affect the calculated result. Interpretation of eGFR results >60 must be monitored over time. CHOLESTEROL 171 mg/dL 0-200 TRIGS 98 mg/dL 0-150 HDL-CHOLESTEROL 73 mg/dL >40 LDL (CALC) 78 mg/dL 0-99.9 Nov 29, 2018 08:56 AM [facility] TSH Specimen Type: SERUM No comment entered. TSH 4.18 uIU/mL 0.47-5.00 Nov 29, 2018 08:56 AM [facility] PROSTATIC SPECIFIC ANTIGEN (TOTAL) Specimen Type: SERUM No comment entered. PROSTATIC SPECIFIC ANTIGEN(TOTAL) 1.8 ng/mL 0-4 Nov 29, 2018 08:56 AM [facility] VITAMIN D (25-OH) Specimen Type: SERUM No comment entered. VITAMIN D (25-OH) 31.6 ng/mL 30.0-96.0 Vital Signs: All taken on the encounter date This section contains inpatient and outpatient Vital Signs collected on the date of the Encounter. Date/Time Temperature Pulse Blood Pressure Respiratory Rate SP02 Pa in Height Weight Body Mass Index Source Nov 29, 2018 09:51 AM 97.5 F 74 /min 129/69 mm[Hg] 18 /min 94 % 63 in 213.8 lb 38 [facility] Immunizations: All administered on the encounter date This section contains immunizations associated to the Encounter. Immunization Series Date Issued Reaction Comments INFLUENZA, TRIVALENT, ADJUVANTED Nov 29, 2018 ZOSTER RECOMBINANT 1 Nov 29, 2018 Social History: Smoking Status (Most current) and Tobacco Use (All prior to enco unter date) This section includes the most current, and the historical, smoking and tobacco- related health factors from the MD facility where the Encounter took place. Current Smoking Status This section includes the most current smoking, or tobacco -related health factor, from the MD facility where the Encounter took place. Date/Time Current Smoking Status Comment Facility Jun 13, 2018 03:20 PM VA-TOBACCO QUIT 15 YRS OR MORE [facility] Tobacco Use History This section includes a history of the smoking, or tobacco -related health factors, that were collected on or before the date of the Encoun ter. The data comes from the MD facility where the Encounter took place. Date/Time Smoking Status/Tobacco Use Comment [facility] it Jun 13, 2018 03:20 PM VA-TOBACCO QUIT 15 YRS OR MORE [facility] Nov 15, 2016 08:28 AM NON-TOBACCO USER [facility] Nov 05, 2015 09:41 AM NON-TOBACCO USER [facility] Advance Directives: All historical and current Section Date Range: From patient's date of to the date document was create d. This section includes ALL of a patient's completed or amen ded MD Advance and Rescinded Directives. The entries below indicate that a direc tive exists for the patient, but an actual copy is not included with this docume nt. The data comes from all MD facilities. Date Advance Directives Provider Source Oct 13, 2017 ADVANCE DIRECTIVE DELVIN VUONG [facility] Apr 01, 2010 ADMINISTRATIVE NOTE DAY CLEMENTS [facility] Dec 16, 2009 ADMINISTRATIVE NOTE HARDEEP YODER [facility] July 20, 2009 ADVANCE DIRECTIVE NICOLASA PATEL [facility] July 20, 2009 ADVANCE DIRECTIVE BUTCH MAJOR [facility] Jul 11, 2009 ADVANCE DIRECTIVE DISCUSSION EARNEST [facility] Jun 17, 2009 ADMINISTRATIVE NOTE MYRA BANDA [facility] Allergies and Adverse Reactions (ADRs): All historical and current Section Date Range: From patient's date of to the date document was create d. This section includes Allergies and Adverse Reactions (ADR s) on record with VA for the patient. The data comes from a ll MD treatment facilities. It does not list Allergies/ADRs that were removed or entered in error. Some allergies/ADRs may be reported in t he Immunization section. Allergen Event Date Event Type Reaction(s) Severity Source CIPROFLOXACIN Nov 05, 2015 Propensity to adverse reactions to drug (disorder) [facility] CIPROFLOXACIN Mar 14, 2011 Propensity to adverse reactions to drug (disorder) Urticaria [facility] KEFLEX Nov 05, 2015 Propensity to adverse reactions to drug (disorder) [facility] KEFLEX 2009 Propensity to adverse reactions to drug (disorder) Urticaria [facility] METHOTREXATE Nov 05, 2015 Propensity to adverse reactions to drug (disorder) EruptionAsthma finding [facility], [facility] 15 METHOTREXATE Jan 03, 2013 Propensity to adverse reactions to drug ( disorder) [facility] PENICILLIN Nov 05, 2015 Propensity to adverse reactions to drug (disorder) EruptionAsthma finding [facility], [facility] 15 PENICILLIN 2009 Propensity to adverse reactions to drug (disorder) Swelling [facility] SEASONAL ALLERGIES 2009 Propensity to adverse reactio ns (disorder) Itching of eyeRhinitis [facility] Medications: VA dispensed (-15 months) and Non-VA Documented (Obtained Outside A) Section Date Range: 1) prescriptions processed by a VA pharmacy in the last 15 m [facility], and 2) all medications recorded in the MD medical record as "non-VA medic ations". Pharmacy terms refer to MD pharmacy's work on prescriptions. VA patient s are advised to take their medications as instructed by their health care team. The data comes from all MD treatment facilities. Glossary of Pharmacy Terms:Active = A prescription that can be filled at the local MD pharmacy.Active: On Hold = An active prescription that will not be filled until pharmacy resolves the issue.Active: Susp = An active prescription that is not scheduled to be filled yet.Clinic Order = A medication received during a visit to a MD clinic or emergency department (currently not available).Discontinued [...] other providers that was filled outside the MD. Or, it may be an over the [...] Non-VA Documented by: ELIZABET CHENGume nted at: DAVID RUCKER ACETAMINOPHEN 650MG TAB,SA Non-VA TAKE ONE TABLET BY MOUTH EVERY 6 HOURS NEEDED Non-VA Documented by: MAGDA HAGERume nted at: [facility] ALBUTEROL SO4 90MCG/ACTUAT (CFC-F) INHL,ORAL,8.5GM Non-VA INHALE 2 PUFFS BY MOUTH PRN Non-VA Documented by: RAFFI ENGLISHume nted at: [facility] APIXABAN 5MG TAB Non- VA TAKE ONE TABLET BY MOUTH TWO TIMES A DAY Non-VA Documented by: NOY BARR nted at: [facility] ASPIRIN 81MG TAB,CHEWABLE Non-VA CHEW ONE TABLET BY MOUTH AT BEDTIME Non-VA Documented by: GARTH MCNEAL nted at: [facility] BISACODYL 5MG TAB,EC Non -VA TAKE ONE TABLET BY MOUTH ONCE A DAY NEEDED Non-VA Documented by: NOY BARR nted at: [facility] CALCIUM 600MG ( CARBONATE)/VITAMIN D 200UNT TAB Non-VA TAKE ONE TABLET BY MOUTH TWICE A DAY Non-VA Documented by: DARRYL MENGume nted at: [facility] CALCIUM ACETATE CAP,ORAL Non-VA TAKE BY MOUTH TWO TIMES A DAY Non-VA Documented by: WOLF PATEL Docume nted at: [facility] CHOLECALCIFEROL 1000UNT TAB Non-VA TAKE ONE TABLET BY MOUTH ONCE A DAY Non-VA Documented by: NOY BARR Docume nted at: [facility] CHOLECALCIFEROL 1000UNT TAB Non-VA TAKE ONE TABLET BY MOUTH TWICE A DAY Non-VA Documented by: DARRYL MENG Docume nted at: [facility] COENZYME Q10 CAP/TAB Non -VA TAKE 1 CAP/TAB BY MOUTH EVERY DAY Non-VA Documented by: QUITA ENG Docume nted at: [facility] COENZYME Q10 CAP/TAB Non -VA TAKE BY MOUTH EVERY MORNING Non- VA Documented by: WOLF PATEL Docume nted at: [facility] FESOTERODINE FUMARATE 4MG TAB,SA Non-VA TAKE ONE TABLET BY MOUTH ONCE A DAY Non-VA Docume nted by: NOY BARRume nted at: [facility] FISH OIL (NON-VA MED) CAP/TAB Non-VA TAKE 2000MG BY MOUTH EVERY MORNING Non-VA Documented by: RAFFI ENGLISH Docume nted at: [facility] GUAIFENESIN 100MG/5ML (SF & AF) LIQUID Non-VA TAKE 1 TEASPOONFUL BY MOUTH EVERY MORNING Non-VA Documented by: WOLF PATELume nted at: [facility] MULTIVITAMINS CAP/TAB No n-VA TAKE ONE TABLET BY MOUTH EVERY MORNING Non-VA Documented by: MAGDA HAGER Docume nted at: [facility] TRAZODONE HCL 50MG TAB N on-VA TAKE 1.5 TABLETS BY MOUTH AT BEDTIME Non-VA Documented by: NOY BARRume nted at: [facility] Problems (Conditions): All historical and current Section Date Range: From patient's date of to the date document was create d. This section includes a list of Problems (Conditions) know n to VA for the patient. It includes both active and inacti ve problems (conditions). The data comes from all MD treatment facilities. Problem Status Problem Code Date of Onset Date of Resolution Comm ent(s) Provider Source Acute asthma Active [id number] Mar 27, 2016 Entered By: MADHU BRAXTON Comment: Conversion of active ICD9->ICD10 03/27/2016 MADHU BRAXTON [facility] Acute bronchitis Active 84868963 Mar 27, 2016 Entered By: MADHU BRAXTON Comment: Conversion of active ICD9->ICD10 03/27/2016 MADHU BRAXTON [facility] Acute bronchitis (ICD-9-CM 466.0) Active 466.0 REYES,IMRAN [facility] Aortic valve regurgitation Active 04072340 Mar 27, 2016 Entered By: MADHU BRAXTON Comment: From Echocardiogram Report on 03/31/2015 MADHU BRAXTON [facility] Aortic valve stenosis Active 36188148 Elmer DEE [facility] Asthma, unspecified (ICD-9-CM 493.90) Active 493.90 SANDRITA TORRES [facility] Atrial fibrillation Active 07644264 DELTAAOMAGDA ABDULLAHI [facility] ATRIAL FIBRILLATION Active 427.31 QUITA ENG [facility] Bilateral tinnitus Active [id number] GRACE SMART [facility] Carcinoma, Renal Cell * (ICD-9-CM 189.0) Active 189.0 [facility] Chronic prison disease management req uired: complex needs (SNOMED CT 933324981) Active 337772004 DAWN VAZ [facility] Chronic obstructive airway disease Active 75716235 MINI SANTOS [facility] Chronic obstructive lung disease Active 65409489 ELIZABET CHENG [facility] Chronic Obstructive Pulmonary Disease * (ICD-9-CM 496.) Active 496. 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 mi 1970 [facility] Coronary heart disease Active 11496575 Emy CHENG [facility] Diabetes * (ICD-9-CM 250.00) Active 250.00 [facility] Elevated Prostate Specific Antigen (PSA) (ICD-9-CM 790.93) Active 7 90.93 [facility] Epistaxis Active 72887162 Mar 27, 2016 E ntered By: MADHU BRAXTON Comment: Conversion of active ICD9->ICD10 03/27/2016 MADHU BRAXTON [facility] Epistaxis (SNOMED CT 75681079) Active 784.7 O LUWOLE,JERSON PHILLIP [facility] Excessive sweating Active 34669622 Mar Entered By: MADHU BRAXTON Comment: Conversion of active ICD9->ICD10 03/27/2016 MADHU BRAXTON [facility] Excessive sweating (SNOMED CT 96350625) Active 780.8 [facility] Exogenous hyperlipemia Active 494279806 MINI HARDEN [facility] Gastroesophageal Reflux Disorder * (ICD-9-CM 530.81) Active 530.81 [facility] Gouty Arthropathy, unspecified (ICD-9-CM 274.00) Active 274.00 MARIA C ARELLANO [facility] H/O: anticoagulant therapy Active 527865337 MAGDA GRIJALVA [facility] HF - Heart failure Active 81061944 OLENA SANTOS [facility] High risk drug monitoring status Active 955876640 MAGDA HAGER [facility] Hyperlipidemia * (ICD-9-CM 272.4) Active 272.4 [facility] Hypertrophy (Benign) of Prostate without Urinary obstr uction (ICD-9-CM 600.00) Active 600.00 [facility] Ischemic heart disease Active 881689319 2016 Entered By: MADHU BRAXTON Comment: Conversion of active ICD9->ICD10 03/27/2016 MADHU BRAXTON [facility] Malignant tumor of kidney Active 074073498 Mar 27, 2016 Entered By: MADHU BRAXTON Comment: Conversion of active ICD9->ICD10 03/27/2016 MADHU BRAXTON [facility] Mitral valve regurgitation Active 06401467 Mar 27, 2016 Entered By: MADHU BRAXTON Comment: From Echocardiogram Report on 03/31/2015 MADHU BRAXTON [facility] Obesity Active 442511831 Mar 27, 2016 E ntered By: MADHU BRAXTON Comment: Conversion of active ICD9->ICD10 03/27/2016 MADHU BRAXTON [facility] Obesity * (ICD-9-CM 278.00) Active 278.00 IRIS COMFORTTIM Emy [facility] Osteoporosis Active 36085561 Mar 27, 2016 Entered By: MADHU BRAXTON Comment: Conversion of active ICD9->ICD10 03/27/2016 MADHU BRAXTON [facility] Osteoporosis * (ICD-9-CM 733.00) Active 733.00 [facility] Personal History of Colonic Polyps (ICD-9-CM V12.72) Active V12.7 2 2009 Entered By: SANDRITA TORRES Comment: per colonoscopy T[facility]RES[facility] Rheumatoid arthritis (SNOMED CT 43912116) Active 97007690 WILLIAMS CHUNG [facility] Sensorineural hearing loss, bilateral Active 822741754 GRACE SMART [facility] Systolic heart failure Active 529927602 2016 Entered By: MADHU BRAXTON Comment: From Echocardiogram Report on 03/31/2015 MADHU BRAXTON [facility] THERAPEUTIC DRUG MONITORING Active V58.83 LONNIE QUINTERO [facility] Type 2 diabetes mellitus Active 52696088 Mar 27, 2016 Entered By: MADHU BRAXTON Comment: Conversion of active ICD9->ICD10 03/27/2016 MADHU BRAXTON [facility] Ventricular hypertrophy Active 004608615 J 2016 Entered By: MADHU BRAXTON Comment: From Echocardiogram Report on 03/31/2015 MADHU BRAXTON [facility] Arthralgia * (ICD-9-CM 719.40) Inactive 719.40 Feb 182010Jul 06, 2009 Entered By: SANDRITA TORRES Comment: elbows/knees [facility] Atrial fibrillation ([facility] 01380659) - Uns pecified atrial fibrillation (ICD-10-CM Inactive I48.91 Apr 10, 2015 [facility] Dyspnea * (ICD-9-CM 786.05/786.09) Inactive 786.05 Feb 182010 [facility] Epistaxis * (ICD-9-CM 784.7) Inactive 784.7 Mar 15, 2011 GARTH MCNEAL [facility] H/O: anticoagulant therapy ([facility] 36374867 8) - [facility] (current) use of anticoag Inactive Z79.01 Apr 10, 2015 [facility] Health Examination of Defined Subpopulations (ICD-9-CM V70.5) Inact stan V70.5 Mar 15, 2011 [facility] Hearing loss * (ICD-9-CM 389.9) Inactive 389.9 Mar 15, 2011 [facility] Hemorrhoids * (ICD-9-CM 455.6) Inactive 455.6 Feb 182010Jul 06, 2009 Entered By: SANDRITA TORRES Comment: 1971 [facility] High risk drug monitoring status ([facility] 24 [id number]) - Encounter for therapeutic [place] Inactive Z51.81 Apr 10, 2015 [facility] Hypersensitivity * (ICD-9-CM 995.3) Inactive 995.3 Mar 15, 2011 2009 Entered By: SANDRITA TORRES Comment: pcn-local swelling, keflex-hives [facility] Male erectile disorder (ICD-9-CM 302.72/607.84) Inactive 302.72 Mar 15, 2011 [facility] Obesity * (ICD-9-CM 278.00) Inactive 278.00 Mar 15, 2011 [facility] Personal History of Congestive Heart Failure (ICD-9-CM V12.59) I nactive V12.59 Mar 15, 2011 QUITA ENG [facility] Radiology result abnormal Inactive 793.1 Mar 15, 2011 [facility] Renal Cyst (ICD-9-CM 753.10) Inactive 753.10 Mar 15, 2011 NOY RESENDIZ [facility] Screening for other specified conditions (ICD-9-CM V82.89) Inactive V82.89 Mar 15, 2011 2009 Entered By: SANDRITA TORRES Comment: ptsd [facility] Subjective tinnitus (ICD-9-CM 388.31) Inactive 388.31 De c 2010 [facility] Radiology Reports: +/- 30 days of the encounter No Data Provided for This Section Pathology Reports: +/- 30 days of the encounter No Data Provided for This Section Encounter Notes: All associated encounter notes This section contains the clinical notes associated to the Encounter. Date/Time Encounter Note(s) Provider Source Nov 29, 2018 02:24 PM MEDICATION MGT NOTE: LOCAL TITLE: [place]-MEDICATION RECONCILIATION (BP,O) STANDARD TITLE: MEDICATION MGT NOTE DATE OF NOTE: NOV 29, 2018@14:24 ENTRY DATE: NOV 29, 2018@14:24:47 AUTHOR: ELIZABET CHENG EXP COSIGNER: URGENCY: STATUS: COMPLETED MEDICATION RECONCILIATION Allergies: KEFLEX, PENICILLIN, CIPROFLOXACIN, METHOTREXATE Allergies reviewed, edited in CPRS as appropriate and confirmed by patient: Yes Active Outpatient Medications (including Supplies): Outpatient Medications Status = 1) CARBOXYMETHYLCELLULOSE NA 0.5%(PF)OP RESHMA INSTILL 1 ACTIVE DROP IN BOTH EYES THREE TIMES A DAY Non-VA Medications Status = 1) Non-VA ACETAMINOPHEN 500MG TAB 500MG MOUTH TWO TIMES ACTIVE A DAY NEEDED 2) Non-VA APIXABAN 5MG TAB 5MG MOUTH TWO TIMES A DAY ACTIVE 3) Non-VA BISACODYL 5MG EC TAB 5MG MOUTH ONCE A DAY ACTIVE NEEDED 4) Non-VA CALCIUM ACETATE CAP,ORAL MOUTH TWO TIMES A ACTIVE DAY 5) Non-VA CHOLECALCIFEROL (VIT D3) 1,000UNIT TAB ACTIVE 1000UNIT MOUTH ONCE A DAY 6) Non-VA COENZYME Q10 CAP/TAB MOUTH EVERY MORNING ACTIVE 7) Non-VA FESOTERODINE FUMARATE 4MG SA TAB 4MG MOUTH ACTIVE ONCE A DAY 8) Non-VA GUAIFENESIN 100MG/5ML (ALC-F/SF) LIQUID 1 ACTIVE TEASPOONFUL MOUTH EVERY MORNING 9) Non-VA TRAZODONE HCL 50MG TAB 75MG MOUTH AT BEDTIME ACTIVE 10 Total Medications Compared newly ordered medications and medication changes to active medications and non-VA medications, and then reviewed medications with patient and/or caregiver. All discrepancies noted and reconciled. Patients, or caregivers, was provided with reconciled medications list and advised to provide to all non VA providers. Potential adverse reactions of new medications were discussed with the patient. Patient/family/caregiver educated and evaluated for understanding on Medications. The list was reviewed with and given to the patient/family/caregiver who were also educated on importance of sharing medication list with all VA providers and non-VA providers. For questions, please call your team nurse. Pertinent lab reviewed: Yes. Level of Understanding: Good Comments: /kannan/ ELIZABET CHENG PEARL MAKER-BC Signed: 11/29/2018 14:25 ELIZABET CHENG ERNST CB Nov 29, 2018 10:31 AM PRIMARY CARE PHYSICIAN OUTPA TIENT NOTE: LOCAL TITLE: [place]-GENERAL/PRIMARY CARE STANDARD TITLE: PRIMARY CARE PHYSICIAN OUTPATIENT NOTE DATE OF NOTE: NOV 29, 2018@10:31 ENTRY DATE: NOV 29, 2018@10:31:27 AUTHOR: ELIZABET CHENG EXP COSIGNER: URGENCY: STATUS: COMPLETED [place]-FOOT EXAM (PAVE): Foot Assessment, pt. requests non VA podiatry consult for dystrophic nails, pt. requests zippered socks, s. pt. presents to [facility] with sister for cont. medical care, he is using a walker for gait assist, he is on oxygen per concentrator, he states he is doing ok, holding his own, pt. states he sees dr. alvarez for pmd in [place], [place] vs stable, hx. unchanged, fasting lab today, to review and update meds. o. affect=pleasant skin=w/d, afebrile general appearance is good, no acute distress ms=using walker for gait assist no edema noted lower ext. bilat. neuro grossly intact assessment/plan: copd, cont. with oxygen modality as directed, pt. using oxygen today per concentrator CHD, cont. with apixiban as directed fasting lab today, meds. reviewed, updated rtc 12 months for annual exam /kannan/ ELIZABET CHENG PEARL MAKER-BC Signed: 11/29/2018 14:24 ELIZABET CHENG [facility] Nov 29, 2018 09:24 AM NURSING OUTPATIENT NOTE: LOCAL TITLE: WI-NURSE/CBOC STANDARD TITLE: NURSING OUTPATIENT NOTE DATE OF NOTE: NOV 29, 2018@09:24 ENTRY DATE: NOV 29, 2018@09:24:04 AUTHOR: DANIKA PHILLIPS COSIGNER: URGENCY: STATUS: COMPLETED Reason for appointment: PCP Appointment Reason for appointment: Other: annual Is the patient diabetic? No - patient is not a diabetic What is your goal for today's visit? *Required Is there anything in your life that worries or stresses you that we may assist you with today? *Required No Are you registered for [facility] ([facility])? No - Are you interested in registering? No If 'yes' please hand [place] [facility] brochure. WI-FOOT EXAM (PAVE): Foot Assessment Patient has foot exam (including monofilament test for sensation) performed in the past year. Date: September 26, 2018 Location: [facility] WI-FOOT EXAM (PAVE): Foot Assessment VISUAL INSPECTION: Includes inspection for skin breaks, deformity, erythema, trauma, pallor on elevation, dependent rubor, nail deformities, extensive callus and pitting edema. Right Foot Abnormal Nail Deformities Pitting Edema Other:redness betwn toes Left Foot Abnormal Nail Deformities Pitting Edema Other:redness btwn toes PEDAL PULSES: Includes palpation of dorsalis and posterior tibial pulses and signs/symptoms of vascular compromise like pain, pallor, paresthesia or paralysis. Right Foot Normal Left Foot Normal SENSORY EXAM: Includes light tough, pin-prick, vibratory or monofilament test of sensation. Right Foot Abnormal/decreased or absent sensation to monofilament Left Foot Abnormal/decrease or absent sensation to monofilament LEVEL "2" (MODERATE RISK) FRS 2 Moderate Risk Decreased Sensation, Decreased Circulation, No Ulcer, No History of Amputation Patient being followed by: Podiatry consult required. Notified PCP. VISN 15-INFLUENZA IMMUNIZATION : [id number] INFLUENZA IMMUNIZATION V1.0 Fluad (Adjuvanted) >/= 65 yrs Influenza Vaccine given Patient given Influenza Vaccination 0.5 cc I.M. during this visit. Influenza Lot and Tourist Cabin Keeper: Lot#: [id number], Expiration Date: August 18, 2019, FLUAD (Seqirus) PFS 0.5ml 15mcg, [facility]: [address]-48 Left Deltoid Patient tolerated injection well during this visit with no adverse effects. [facility] Vaccination Information Sheet (VIS) dated November 01, 2018 was given to patient. The patient's verbal consent was obtained prior to vaccination. The patient denies having a fever or is afebrile. The patient denies allergy to flu vaccine, Thimerosal, Neomycin, Polymyxin, eggs or any other component of Flu vaccine. The patient denies history of Guillain Hereford Syndrome The patient denies moderate/severe illness. Homelessness/Food Insecurity Screen: In the past 2 months, have you been living in stable housing that you own, rent, or stay in as part of a household? Yes - Living in stable housing. Are you worried or concerned that in the next 2 months you may NOT have stable housing that you own, rent, or stay in as part of a household? No - Not worried about housing near future In the past three months did you ever run out of food and you were not able to access more food or have the money to buy more food? No - No Food shortage Herpes Zoster (Shingles) Vaccine: The patient received recombinant zoster vaccine (RZV) 0.5 ml IM in Left deltoid. Tourist Cabin Keeper: Spotted Lot#s and Expiration Date: Z 02/12/21, [id number] 01/24/21 Administered by protocol/policy Complications: None WI-ABUSE/NEGLECT SCREENING: Abuse/Neglect Questions Does the patient feel safe in their current living arrangement? Yes Does the patient show any signs of abuse or neglect? No REPORT OF SUSPECTED ABUSE OR NEGLECT SOCIAL WORK CONSULTS: WI-HIV SCREENING (NATIONAL): [place] has viewed the HIV Screening video "One Step Ahead". refused [place] was given the HIV Screening Pamphlet. refused WI-PAIN: Pain Documentation: Pain level 3 or less. WI-FALL RISK OP: LONG FALL SCALE The Long Fall scale was performed and score was 25. This is indicative of moderate risk for falls. History of falling in past 3 months? No Secondary diagnosis: No Ambulatory aid: Crutches/cane(s)/walker Intravenous therapy/Heparin lock: No Gait/Transferring: Weakness Mental Status: Oriented to own ability/knows own limitations OTHER RISK FACTORS No history of falls and no secondary diagnosis. Patient risk for falling: Medium/High Risk Pamphlet given to patient/family Is patient at risk for falling? Patient is at risk for falling. Will alert provider for follow-up. Is the patient 75 years of age or older? Yes Has the patient had any falls in the past 12 months? Yes Provider will be notified. Did the patient report any of the following: At least one fall with injury requiring treatment (any fall for which a patient seeks medical attention, i.e., a visit usually to clinic or ED. The degree of treatment is not an issue). WI-ACOVE CHAPARRO ADL: ACOVE CHAPARRO INDEX ADL: Chaparro Index of Hidalgo in Activities of Daily Living Activities Points (1 or 0) [place]go (1 Point) NO supervision, direction or personal assistance Dependence (0 Points) WITH supervision, direction, personal assistance or total care BATHING 1 Points (1 POINT) Bathes self completely or needs help in bathing only a single part of the body such as the back, genital area or disabled extremity (0 POINTS) Need help with bathing more than one part of the body, getting in or out of the tub or shower. Requires total bathing DRESSING 1 Points (1 POINT) Get clothes from closets and drawers and puts on clothes and outer garments complete with fasteners. May have help tying shoes. (0 POINTS) Needs help with dressing self or needs to be completely dressed. TOILETING 1 Points (1 POINT) Goes to toilet, gets on and off, arranges clothes, cleans genital area without help. (0 POINTS) Needs help transferring to the toilet, cleaning self or uses bedpan or commode. TRANSFERRING 1 Points (1 POINT) Moves in and out of bed or chair unassisted. Mechanical transfer aids are acceptable (0 POINTS) Needs help in moving from bed to chair or requires a complete transfer. CONTINENCE 1 Points (1 POINT) Exercises complete self control over urination and defecation. (0 POINTS) Is partially or totally incontinent of FEEDING 1 Points (1 POINT) Gets food from plate into mouth without help. Preparation of food may be done by another person. (0 POINTS) Needs partial or total help with feeding or requires parenteral feeding. 6 Total Points Score of 6 = High, Patient is independent. Score of 0 = Low, patient is very dependent. Slightly adapted. Krysta Hensley., Todd TD, Trever HR, et al. (1970) progress in the development of the index of ADL. Gerontologist 10:20-30. Copyright [employer] [place]. Reproduced by permission of the publisher. No issues identified at this time. Depression Screening: PHQ-2+I9 Depression Screening Score: 0 The score on this administration is 0, which indicates a negative screen on the Depression Scale over the past two weeks. Suicide Screening Score: 0 The results of this administration indicates a NEGATIVE primary screen for Risk of Suicide over the last 2 weeks. Over the past two weeks, how often have you been bothered by the following problems? 1. Little interest or pleasure in doing things Not at all 2. Feeling down, depressed, or hopeless Not at all 3. Thoughts that you would be better off or of hurting yourself in some way Not at all Tobacco Use Screening: The patient is a former tobacco user. The patient quit fifteen or more years ago. Alcohol Use Screen (AUDIT-C): Alcohol Screen: SCREEN FOR ALCOHOL (AUDIT-C) An alcohol screening test (AUDIT-C) was negative (score=0). 1. How often did you have a drink containing alcohol in the past year? Never 2. How many drinks containing alcohol did you have on a typical day when you were drinking in the past year? Response not required due to responses to other questions. 3. How often did you have six or more drinks on one occasion in the past year? Response not required due to responses to other questions. /kannan/ DANIKA PHILLIPS LPN Signed: 11/29/2018 09:52 DANIKA PHILLIPS OC
--- OUTSIDE RECORDS SUMMARY | 2019-10-02 07:23 | XMS REPORT | Encounter Summary ---
Author Author Department [facility] [place] Organization Department of [facility] Address [address] [place] [address] Phone Unavailable Care Team Providers Care Launch Check Out Name Role Phone ELIZABET CHENG PCP Unavailable [...] Name Patient's Relationship to Policy Clark [employer] [facility] ([facility]) MEDICARE ADVANTAGE [facility] ([facility]) Mar 20, 2019 00 [id number] CORDEROBRIAN PATIENT [facility]) MEDICARE ADVANTAGE [facility] ([facility]) Mar 20 8 [id number] [phone] BRIAN CORDERO JR PATIENT MEDICARE (WN) MEDICARE (M) PART B Sep 17, 2008 PART B [id number] [phone] CONSUELO LOCKEBRIAN PATIENT MEDICARE (WN) MEDICARE (M) PART A Jun 18, 2005 PART A [id number] CONSUELO LOCKEBRIAN PATIENT MEDICARE PART D ([facility]) MEDICARE (M) PART D Nov 19, 2015 PART D [id number] BRIAN CORDERO JR PATIENT MEDICARE PART D ([facility]) MEDICARE (M) PART D Sep 17, 2009 PART D [id number] BRIAN CORDERO JR PATIENT [facility] (WNR) MEDICARE ADVANTAGE [facility] (WNR) Sep 17, 2009 [facility] [id number] BRIAN CORDERO JR PATIENT Selected Encounter This section includes the information on record at ME for the Encounter. Date/Time Encounter Type Encounter Description Reason Provider Source Dec 14, 2018 11:36 AM Outpatient Encounter COMMUNITY CARE CONSULT [facility], [place] 15 IHE Encounter Template Text not used by ME Assessments - Encounter Diagnoses No Data Provided for This Section Plan of Treatment: Future Appointments (+ 6 months) and Future Tests (+/- 45 day s) The Plan of Treatment section includes future care activities for the patient fr om all ME treatment facilities. This section includes future appointments and fu ture orders which are active, pending or scheduled. Future Appointments This section includes appointments that were scheduled t o occur 6 months from the date of the Encounter, up to a maximum of 20 appointme nts. The data comes from all ME treatment [facility]. Appointment Date/Time Appointment Type Appointment Facili [...] the Encounter. The data comes from all ME treatment [facility]. Test Date/Time Test Type Test Details Facility Name Nov 29, 2018 12:00 AM Laboratory - Chemistry Order OCCULT BL OOD FIT X1 SCREEN STOOL FECES SP KLEVER RUCKER Nov 30, 2018 03:25 PM Consult Order [id number] Cons Sales Data Analyst's Choice KLEVER RUCKER Surgical Procedures: All associated to the encounter No Data Provided for This Section Lab Results: +/- 30 days of the encounter This section includes the Chemistry and Hematology Lab R esults on record with ME for the patient. Radiology Reports and Pathology Report s are provided separately, in subsequent sections. Lab Results This section contains the Chemistry/Hematology Results kwabena t were resulted 30 days before or 30 days after the date of the Encounter. Date/Time Source Result Type Result - Unit Interpretation Reference Range Comment Nov 29, 2018 08:56 AM [facility] CBC & DIFF Specimen Type: BLOOD No [...] 0.2 % Nov 29, 2018 08:56 AM [facility] COMPREHENSIVE METABOLIC PA VIVIEN Specimen Type: PLASMA [...] of a patient's completed or amen ded ME Advance and Rescinded Directives. The entries below indicate that a direc tive exists for the patient, but an actual copy is not included with this docume nt. The data comes from all ME facilities. Date Advance Directives Provider Source Oct 13, 2017 ADVANCE DIRECTIVE DELVIN VUONG [facility] Apr 01, 2010 ADMINISTRATIVE NOTE DAY CLEMENTS [facility] Dec 16, 2009 ADMINISTRATIVE NOTE HARDE[facility] July 20, 2009 ADVANCE DIRECTIVE NICOLASA PATEL [facility] July 20, 2009 ADVANCE DIRECTIVE BUTCH MAJOR [facility] Jul 11, 2009 ADVANCE DIRECTIVE DISCUSSION EARNEST [facility] Jun 17, 2009 ADMINISTRATIVE NOTE MYRA BANDA [facility] Allergies and Adverse Reactions (ADRs): All historical and current Section Date Range: From patient's date of to the date document was create d. This section includes Allergies and Adverse Reactions (ADR s) on record with [facility] for the patient. The data comes from a ll ME treatment facilities. It does not list Allergies/ADRs that were removed or entered in error. Some allergies/ADRs may be reported in t he Immunization section. Allergen Event Date Event Type Reaction(s) Severity Source CIPROFLOXACIN Nov 05, 2015 Propensity to adverse reactions to drug (disorder) [facility] CIPROFLOXACIN Mar 14, 2011 Propensity to adverse reactions to drug (disorder) Urticaria [facility] KEFLEX Nov 05, 2015 Propensity to adverse reactions to drug (disorder) [facility] KEFLEX 2009 Propensity to adverse reactions to drug (disorder) Urticaria [facility] METHOTREXATE Nov 05, 2015 Propensity to adverse reactions to drug (disorder) EruptionAsthma finding [facility], [facility] 15 METHOTREXATE Jan 03, 2013 Propensity to adverse reactions to drug ( disorder) [facility] PENICILLIN Nov 05, 2015 Propensity to adverse reactions to drug (disorder) EruptionAsthma finding [facility] VISN 15 PENICILLIN 2009 Propensity to adverse reactions to drug (disorder) Swelling [facility] SEASONAL ALLERGIES 2009 Propensity to adverse reactio ns (disorder) Itching of eyeRhinitis [facility] Medications: VA dispensed (-15 months) and Non-VA Documented (Obtained Outside A) Section Date Range: 1) prescriptions processed by a VA pharmacy in the last 15 [facility], and 2) all medications recorded in the ME medical record as "non-VA medic ations". Pharmacy terms refer to ME pharmacy's work on prescriptions. VA patient s are advised to take their medications as instructed by their health care team. The data comes from all ME treatment facilities. Glossary of Pharmacy Terms:Active = A prescription that can be filled at the local ME pharmacy.Active: On Hold = An active prescription that will not be filled until pharmacy resolves the issue.Active: Susp = An active prescription that is not scheduled to be filled yet.Clinic Order = A medication received during a visit to a ME clinic or emergency department (currently not available).Discontinued [...] may be a prescription from either the ME or other providers that was filled outside the ME. Or, it may be an over the [...] Non-VA Documented by: ELIZABET CHENGume nted at: [facility] ACETAMINOPHEN 650MG TAB,SA Non-VA TAKE ONE TABLET BY MOUTH EVERY 6 HOURS NEEDED Non-VA Documented by: MAGDA HAGERume nted at: [facility] ALBUTEROL SO4 90MCG/ACTUAT (CFC-F) INHL,ORAL,8.5GM Non-VA INHALE 2 PUFFS BY MOUTH PRN Non-VA Documented by: RAFFI ENGLISH nted at: [facility] APIXABAN 5MG TAB Non- VA TAKE ONE TABLET BY MOUTH TWO TIMES A DAY Non-VA Documented by: NOY BARRume nted at: [facility]EN HOGUE [facility] ASPIRIN 81MG TAB,CHEWABLE Non-VA CHEW ONE TABLET BY MOUTH AT BEDTIME Non-VA Documented by: GARTH MCNEAL nted at: [facility] BISACODYL 5MG TAB,EC Non -VA TAKE ONE TABLET BY MOUTH ONCE A DAY NEEDED Non-VA Documented by: NOY BARR nted at: [facility] CALCIUM 600MG ( CARBONATE)/VITAMIN D 200UNT TAB Non-VA TAKE ONE TABLET BY MOUTH TWICE A DAY Non-VA Documented by: DARRYL MENG nted at: [facility] CALCIUM ACETATE CAP,ORAL Non-VA TAKE BY MOUTH TWO TIMES A DAY Non-VA Documented by: WOLF PATELume nted at: [facility] CHOLECALCIFEROL 1000UNT TAB Non-VA TAKE ONE TABLET BY MOUTH ONCE A DAY Non-VA Documented by: NOY BARRume nted at: [facility] CHOLECALCIFEROL 1000UNT TAB Non-VA TAKE ONE TABLET BY MOUTH TWICE A DAY Non-VA Documented by: DARRYL MENGume nted at: [facility] COENZYME Q10 CAP/TAB Non -VA TAKE 1 CAP/TAB BY MOUTH EVERY DAY Non-VA Documented by: QUITA ENG nted at: [facility] COENZYME Q10 CAP/TAB Non -VA TAKE BY MOUTH EVERY MORNING Non- VA Documented by: WOLF PATEL nted at: [facility] FESOTERODINE FUMARATE 4MG TAB,SA Non-VA TAKE ONE TABLET BY MOUTH ONCE A DAY Non-VA Documented by: NOY BARR nted at: [facility] FISH OIL (NON-VA MED) CAP/TAB Non-VA TAKE 2000MG BY MOUTH EVERY MORNING Non-VA Documented by: RAFFI ENGLISH nted at: [facility] GUAIFENESIN 100MG/5ML (SF & AF) LIQUID Non-VA TAKE 1 TEASPOONFUL BY MOUTH EVERY MORNING Non-VA Documented by: WOLF PATEL nted at: [facility] MULTIVITAMINS CAP/TAB No n-VA TAKE ONE TABLET BY MOUTH EVERY MORNING Non-VA Documented by: MAGDA HAGER nted at: [facility] TRAZODONE HCL 50MG TAB N on-VA TAKE 1.5 TABLETS BY MOUTH AT BEDTIME Non-VA Documented by: NOY BARR nted at: [facility] Problems (Conditions): All historical and current Section Date Range: From patient's date of to the date document was create d. This section includes a list of Problems (Conditions) know n to ME for the patient. It includes both active and inacti ve problems (conditions). The data comes from all ME treatment facilities. Problem Status Problem Code Date of Onset Date of Resolution Comm ent(s) Provider Source Acute asthma Active 050029232 Mar 27, 2016 Entered By: MADHU BRAXTON Comment: Conversion of active ICD9->ICD10 03/27/2016 MADHU BRAXTON [facility] Acute bronchitis Active 83726467 Mar 27, 2016 Entered By: MADHU BRAXTON Comment: Conversion of active ICD9->ICD10 03/27/2016 MADHU BRAXTON [facility] Acute bronchitis (ICD-9-CM 466.0) Active 466.0 ERICKENNETH [facility] Aortic valve regurgitation Active 29877987 Mar 27, 2016 Entered By: MADHU BRAXTON Comment: From Echocardiogram Report on 03/31/2015 MADHU BRAXTON [facility] Aortic valve stenosis Active 90852338 Elmer DEE [facility] Asthma, unspecified (ICD-9-CM 493.90) Active 493.90 SANDRITA TORRES [facility] Atrial fibrillation Active 30173398 DELTAAOMAGDA ABDULLAHI [facility] ATRIAL FIBRILLATION Active 427.31 QUITA ENG [facility] Bilateral tinnitus Active [id number] GRACE SMART [facility] Carcinoma, Renal Cell * (ICD-9-CM 189.0) Active 189.0 [facility] Chronic jail disease management req uired: complex needs (SNOMED CT 281152113) Active 710677829 DAWN VAZ [facility] Chronic obstructive airway disease Active 28584287 MINI SANTOS [facility] Chronic obstructive lung disease Active 99086256 ELIZABET CHENG [facility] Chronic Obstructive Pulmonary Disease * (ICD-9-CM 496.) Active 496. 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 [facility] 1970 [facility] Coronary heart disease Active 21963306 Emy CHENG [facility] Diabetes * (ICD-9-CM 250.00) Active 250.00 [facility] Elevated Prostate Specific Antigen (PSA) (ICD-9-CM 790.93) Active 7 90.93 [facility] Epistaxis Active 49325182 Mar 27, 2016 E ntered By: MADHU BRAXTON Comment: Conversion of active ICD9->ICD10 03/27/2016 MADHU BRAXTON [facility] Epistaxis (SNOMED CT 94556423) Active 784.7 O LUWOLE,OLAWOLE [facility] Excessive sweating Active 24445287 Mar Entered By: MADHU BRAXTON Comment: Conversion of active ICD9->ICD10 03/27/2016 MADHU BRAXTON [facility] Excessive sweating (SNOMED CT 86911087) Active 780.8 [facility] Exogenous hyperlipemia Active 370728590 MINI HARDEN [facility] Gastroesophageal Reflux Disorder * (ICD-9-CM 530.81) Active 530.81 [facility] Gouty Arthropathy, unspecified (ICD-9-CM 274.00) Active 274.00 MARIA C ARELLANO [facility] H/O: anticoagulant therapy Active 108075392 MAGDA GRIJALVA [facility] HF - Heart failure Active 39199955 OLENA SANTOS [facility] High risk drug monitoring status Active 148345413 MAGDA HAGER [facility] Hyperlipidemia * (ICD-9-CM 272.4) Active 272.4 [facility] Hypertrophy (Benign) of Prostate without Urinary obstr uction (ICD-9-CM 600.00) Active 600.00 [facility] Ischemic heart disease Active 914624840 n 2016 Entered By: MADHU BRAXTON Comment: Conversion of active ICD9->ICD10 03/27/2016 MADHU BRAXTON [facility] Malignant tumor of kidney Active 307767283 Mar 27, 2016 Entered By: MADHU BRAXTON Comment: Conversion of active ICD9->ICD10 03/27/2016 MADHU BRAXTON [facility] Mitral valve regurgitation Active 20125457 Mar 27, 2016 Entered By: MADHU BRAXTON Comment: From Echocardiogram Report on 03/31/2015 MADHU BRAXTON [facility] Obesity Active 176746306 Mar 27, 2016 E ntered By: MADHU BRAXTON Comment: Conversion of active ICD9->ICD10 03/27/2016 MADHU BRAXTON [facility] Obesity * (ICD-9-CM 278.00) Active 278.00 TIM SHAH [facility] Osteoporosis Active 55170142 Mar 27, 2016 Entered By: MADHU BRAXTON Comment: Conversion of active ICD9->ICD10 03/27/2016 MADHU BRAXTON [facility] Osteoporosis * (ICD-9-CM 733.00) Active 733.00 [facility] Personal History of Colonic Polyps (ICD-9-CM V12.72) Active V12.7 2 2009 Entered By: SANDRITA TORRES Comment: per colonoscopy [facility] Rheumatoid arthritis (SNOMED CT 85701361) Active 62253415 WILLIAMS CHUNG [facility] Sensorineural hearing loss, bilateral Active 682051723 GRACE SMART [facility] Systolic heart failure Active 199832765 n 2016 Entered By: MADHU BRAXTON Comment: From Echocardiogram Report on 03/31/2015 MADHU BRAXTON [facility] THERAPEUTIC DRUG MONITORING Active V58.83 JENNIFER SSE,KIDEST-DANIEL A [facility] Type 2 diabetes mellitus Active 76113240 Mar 27, 2016 Entered By: MADHU BRAXTON Comment: Conversion of active ICD9->ICD10 03/27/2016 MADHU BRAXTON [facility] Ventricular hypertrophy Active 111714813 2016 Entered By: MADHU BRAXTON Comment: From Echocardiogram Report on 03/31/2015 MADHU BRAXTON [facility] Arthralgia * (ICD-9-CM 719.40) Inactive 719.40 Feb 182010Jul 06, 2009 Entered By: SANDRITA TORRES Comment: elbows/knees [facility] Atrial fibrillation ([facility] 75473503) - Uns pecified atrial fibrillation (ICD-10-CM Inactive I48.91 Apr 10, 2015 [facility] Dyspnea * (ICD-9-CM 786.05/786.09) Inactive 786.05 Feb 182010 [facility] Epistaxis * (ICD-9-CM 784.7) Inactive 784.7 Mar 15, 2011 GARTH MCNEAL [facility] H/O: anticoagulant therapy ([facility] 40432854 8) - 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 Inactive Z79.01 Apr 10, 2015 [facility] Health Examination of Defined Subpopulations (ICD-9-CM V70.5) Inact stan V70.5 Mar 15, 2011 [facility] Hearing loss * (ICD-9-CM 389.9) Inactive 389.9 Mar 15, 2011 [facility] Hemorrhoids * (ICD-9-CM 455.6) Inactive 455.6 Feb 182010Jul 06, 2009 Entered By: SANDRITA TORRES Comment: 1971 [facility] High risk drug monitoring status ([facility] 24 8660165) - Encounter for therapeutic [place] Inactive Z51.81 Apr 10, 2015 [facility] Hypersensitivity * (ICD-9-CM 995.3) Inactive 995.3 [...] nactive V12.59 Mar 15, 2011 QUITA ENG [facility] Radiology result abnormal Inactive 793.1 Mar 15, 2011 [facility] Renal Cyst (ICD-9-CM 753.10) Inactive 753.10 Mar 15, 2011 NOY RESENDIZ [facility] Screening for other specified conditions (ICD-9-CM V82.89) Inactive V82.89 Mar 15, 2011 2009 Entered By: SANDRITA TORRES Comment: ptsd [facility] Subjective tinnitus (ICD-9-CM 388.31) Inactive 388.31 De 2010 [facility] Radiology Reports: +/- 30 days of the encounter No Data Provided for This Section Pathology Reports: +/- 30 days of the encounter No Data Provided for This Section Encounter Notes: All associated encounter notes This section contains the clinical notes associated to the Encounter. Date/Time Encounter Note(s) Provider Source Dec 14, 2018 11:36 AM NONVA CONSULT: LOCAL TITLE: COMMUNITY CARE CONSULT RESULTS NOTE WI STANDARD TITLE: NONVA CONSULT DATE OF NOTE: DEC 14, 2018@11:36 ENTRY DATE: DEC 14, 2018@11:36:48 AUTHOR: LIZ JUNG EXP COSIGNER: URGENCY: STATUS: COMPLETED The following Non VA Care consult has been completed. See scanned document for report. NON VA Care Consult Results Other: COMMUNITY CARE-OPTOM/[facility]/12/10/18 /es/ LIZ JUNG [facility] Signed: 12/14/2018 11:37 LIZ JUNG [facility]
--- OUTSIDE RECORDS SUMMARY | 2019-10-02 07:25 | XMS REPORT | Continuity of Care Document ---
Author Organization Unknown Address Unknown Phone Unavailable Allergies Active Description Code Type Severity Reaction Onset Reported/Identified Relationship to Patient Clinical Status Yes No Allergy Information Available [id number] Drug Allergy Unknown N/A 016 Yes cephalexin [id number] Drug Allerg y Unknown N/A 03/01/2016 Yes ciprofloxacin [id number] Rico g Allergy Unknown N/A 03/01/2016 Yes methotrexate [id number] Drug Allergy Unknown N/A 03/01/2016 Yes Penicillins [id number] Drug Aller gy Unknown N/A 03/01/2016 Medications There is no data. Problems Date Dx Coded Attending Type Code Diagnosis Diagnosed By 02/17/2016 MARCK BACH MD, FACC FACP CCDS Ot E66.9 OBESITY, UNSPECIFIED 02/17/2016 MARCK BACH MD, FACC FACP CCDS Ot I25.10 ATHSCL HEART DISEASE OF [place] CORONARY 02/17/2016 MARCK BACH MD, FACC FACP CCDS Ot I48.2 CHRONIC ATRIAL FIBRILLATION 02/17/2016 MARCK BACH MD, FACC FACP CCDS Ot I73.9 PERIPHERAL VASCULAR DISEASE, UNSPECIFIED 02/17/2016 MARCK BACH MD, FACC FACP CCDS Ot Z86.79 PERSONAL HISTORY OF OTHER DISEASES OF 02/18/2016 MARCK BACH MD, FACC FACP CCDS Ot E66.9 OBESITY, UNSPECIFIED 02/18/2016 MARCK BACH MD, FACC FACP CCDS Ot I25.10 ATHSCL HEART DISEASE OF [place] CORONARY 02/18/2016 MARCK BACH MD, FACC FACP CCDS Ot I48.2 CHRONIC ATRIAL FIBRILLATION 02/18/2016 MARCK BACH MD, FACC FACP CCDS Ot I73.9 PERIPHERAL VASCULAR DISEASE, UNSPECIFIED 02/18/2016 MARCK BACH MD, FACC FACP CCDS Ot Z86.79 PERSONAL HISTORY OF OTHER DISEASES OF 02/19/2016 MARCK BACH MD, FACC FACP CCDS Ot E66.9 OBESITY, UNSPECIFIED 02/19/2016 ISREAL CHASEC, ALI FACP CCDS Ot I25.10 ATHSCL HEART DISEASE OF [place] CORONARY 02/19/2016 ISREAL SMITH FACC, ALI FACP CCDS Ot I48.2 CHRONIC ATRIAL FIBRILLATION 02/19/2016 ISREAL SMITH FACC, ALI FACP CCDS Ot I73.9 PERIPHERAL VASCULAR DISEASE, UNSPECIFIED 02/19/2016 ISREAL SMITH FACC, ALI FACP CCDS Ot R06.02 SHORTNESS OF BREATH 02/19/2016 ISREAL SMITH FACC, ALI FACP CCDS Ot Z86.79 PERSONAL HISTORY OF OTHER DISEASES OF TH 02/25/2016 ISREAL SMITH FACC, ALI FACP CCDS Ot 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 PULMONARY HYPERTENSION 02/25/2016 ISREAL SMITH FACC, ALI FACP CCDS Ot I34.0 NONRHEUMATIC MITRAL (VALVE) INSUFFICIENC 02/25/2016 ISREAL SMITH FACS[place], ALI FACP CCDS Ot I35.0 NONRHEUMATIC AORTIC (VALVE) STENOSIS 02/25/2016 ISREAL SMITH FACC, ALI FACP CCDS Ot I48.2 CHRONIC ATRIAL FIBRILLATION 02/25/2016 ISREAL SMITH FACC, ALI FACP CCDS Ot I50.23 ACUTE ON CHRONIC SYSTOLIC (CONGESTIVE) H 02/25/2016 ISREAL SMITH FACC, ALI FACP CCDS Ot R06.02 SHORTNESS OF BREATH 02/25/2016 ISREAL SMITH FACC, ALI FACP CCDS Ot E66.9 OBESITY, UNSPECIFIED 02/25/2016 ISREAL SMITH FACC, ALI FACP CCDS Ot I25.10 ATHSCL HEART DISEASE OF [place] CORONARY 02/25/2016 ISREAL SMITH FACC, ALI FACP CCDS Ot I48.2 CHRONIC ATRIAL FIBRILLATION 02/25/2016 ISREAL SMITH FACC, ALI FACP CCDS Ot I73.9 PERIPHERAL VASCULAR DISEASE, UNSPECIFIED 02/25/2016 ISREAL SMITH FACC, ALI FACP CCDS Ot Z86.79 PERSONAL HISTORY OF OTHER DISEASES OF 02/29/2016 ISREAL SMITH FACC, ALI FACP CCDS Ot E66.9 OBESITY, UNSPECIFIED 02/29/2016 ISREAL SMITH FACC, ALI FACP CCDS Ot I25.10 ATHSCL HEART DISEASE OF [place] CORONARY 02/29/2016 ISREAL SMITH FACC, ALI FACP CCDS Ot I48.2 CHRONIC ATRIAL FIBRILLATION 02/29/2016 ISREAL CHASEC, ALI FACP CCDS Ot I73.9 PERIPHERAL VASCULAR DISEASE, UNSPECIFIED 02/29/2016 ISREAL SMITH FACC, ALI FACP CCDS Ot Z86.79 PERSONAL HISTORY OF OTHER DISEASES OF 02/29/2016 ISREAL SMITH FACC, ALI FACP CCDS Ot E66.9 OBESITY, UNSPECIFIED 02/29/2016 ISREAL SMITH FACC, ALI FACP CCDS Ot I25.10 ATHSCL HEART DISEASE OF [place] CORONARY 02/29/2016 ISREAL SMITH FACC, ALI FACP CCDS Ot I48.2 CHRONIC ATRIAL FIBRILLATION 02/29/2016 ISREAL SMITH FACC, ALI FACP CCDS Ot I73.9 PERIPHERAL VASCULAR DISEASE, UNSPECIFIED 02/29/2016 ISREAL SMITH FACC, ALI FACP CCDS Ot R06.02 SHORTNESS OF BREATH 02/29/2016 ISREAL SMITH FACC, ALI FACP CCDS Ot Z86.79 PERSONAL HISTORY OF OTHER DISEASES OF 02/29/2016 ISREAL SMITH FACC, ALI FACP CCDS Ot 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 PULMONARY HYPERTENSION 02/29/2016 ISREAL SMITH FACC, ALI FACP CCDS Ot I34.0 NONRHEUMATIC MITRAL (VALVE) INSUFFICIENC 02/29/2016 ISREAL SMITH FACC, ALI FACP CCDS Ot I35.0 NONRHEUMATIC AORTIC (VALVE) STENOSIS 02/29/2016 ISREAL SMITH FACC, ALI FACP CCDS Ot I48.2 CHRONIC ATRIAL FIBRILLATION 02/29/2016 ISREAL SMITH FACC, ALI FACP CCDS Ot I50.23 ACUTE ON CHRONIC SYSTOLIC (CONGESTIVE) H 02/29/2016 ISREAL SMITH FACC, ALI FACP CCDS Ot R06.02 SHORTNESS OF BREATH 03/01/2016 ISREAL SMITH FACC, ALI FACP CCDS Ot 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 PULMONARY HYPERTENSION 03/01/2016 ISREAL SMITH FACC, ALI FACP CCDS Ot I34.0 NONRHEUMATIC MITRAL (VALVE) INSUFFICIENC 03/01/2016 ISREAL SMITH FACC, ALI FACP CCDS Ot I35.0 NONRHEUMATIC AORTIC (VALVE) STENOSIS 03/01/2016 ISREAL SMITH FACC, ALI FACP CCDS Ot I48.2 CHRONIC ATRIAL FIBRILLATION 03/01/2016 ISREAL SMITH FACC, ALI FACP CCDS Ot I50.23 ACUTE ON CHRONIC SYSTOLIC (CONGESTIVE) H 03/01/2016 ISREAL SMITH FACC, ALI FACP CCDS Ot R06.02 SHORTNESS OF BREATH 03/01/2016 ISREAL SMITH FACC, ALI FACP CCDS Ot 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 PULMONARY HYPERTENSION 03/01/2016 ISREAL SMITH FACC, ALI FACP CCDS Ot I34.0 NONRHEUMATIC MITRAL (VALVE) INSUFFICIENC 03/01/2016 ISREAL SMITH FACC, ALI FACP CCDS Ot I35.0 NONRHEUMATIC AORTIC (VALVE) STENOSIS 03/01/2016 ISREAL SMITH FACC, ALI FACP CCDS Ot I48.2 CHRONIC ATRIAL FIBRILLATION 03/01/2016 ISREAL SMITH FACC, ALI FACP CCDS Ot I50.23 ACUTE ON CHRONIC SYSTOLIC (CONGESTIVE) H 03/01/2016 ISREAL SMITH FACC, ALI FACP CCDS Ot R06.02 SHORTNESS OF BREATH 03/01/2016 ISREAL SMITH FACC, ALI FACP CCDS Ot E66.9 OBESITY, UNSPECIFIED 03/01/2016 ISREAL SMITH FACC, ALI FACP CCDS Ot I25.10 ATHSCL HEART DISEASE OF [place] CORONARY 03/01/2016 ISREAL SMITH FACC, ALI FACP CCDS Ot I48.2 CHRONIC ATRIAL FIBRILLATION 03/01/2016 ISREAL SMITH FACC, ALI FACP CCDS Ot I73.9 PERIPHERAL VASCULAR DISEASE, UNSPECIFIED 03/01/2016 ISREAL SMITH FACC, ALI FACP CCDS Ot R06.02 SHORTNESS OF BREATH 03/01/2016 ISREAL SMITH FACC, ALI FACP CCDS Ot Z86.79 PERSONAL HISTORY OF OTHER DISEASES OF TH 03/01/2016 ISREAL SMITH FACC, ALI FACP CCDS Ot E66.9 OBESITY, UNSPECIFIED 03/01/2016 ISREAL SMITH FACC, ALI FACP CCDS Ot I25.10 ATHSCL HEART DISEASE OF [place] CORONARY 03/01/2016 ISREAL SMITH FACC, ALI FACP CCDS Ot I48.2 CHRONIC ATRIAL FIBRILLATION 03/01/2016 ISREAL CHASEC, ALI FACP CCDS Ot I73.9 PERIPHERAL VASCULAR DISEASE, UNSPECIFIED 03/01/2016 ISREAL SMITH FACC, ALI FACP CCDS Ot R06.02 SHORTNESS OF BREATH 03/01/2016 ISREAL SMITH FACC, ALI FACP CCDS Ot Z86.79 PERSONAL HISTORY OF OTHER DISEASES OF 03/01/2016 ISREAL SMITH FACC, ALI FACP CCDS Ot E66.9 OBESITY, UNSPECIFIED 03/01/2016 ISREAL CHASEC, ALI FACP CCDS Ot I25.10 ATHSCL HEART DISEASE OF [place] CORONARY 03/01/2016 ISREAL CHASEC, ALI FACP CCDS Ot I48.2 CHRONIC ATRIAL FIBRILLATION 03/01/2016 ISREAL SMITH FACC, ALI FACP CCDS Ot I73.9 PERIPHERAL VASCULAR DISEASE, UNSPECIFIED 03/01/2016 ISREAL SMITH FACC, ALI FACP CCDS Ot Z86.79 PERSONAL HISTORY OF OTHER DISEASES OF 03/01/2016 ISREAL SMITH FACC, ALI FACP CCDS Ot E66.9 OBESITY, UNSPECIFIED 03/01/2016 ISREAL SMITH FACC, ALI FACP CCDS Ot I25.10 ATHSCL HEART DISEASE OF [place] CORONARY 03/01/2016 ISREAL SMITH FACC, MARCK FACP CCDS Ot I48.2 CHRONIC ATRIAL FIBRILLATION 03/01/2016 ISREAL SMITH FACC, ALI FACP CCDS Ot I73.9 PERIPHERAL VASCULAR DISEASE, UNSPECIFIED 03/01/2016 ISREAL SMITH FACC, ALI FACP CCDS Ot Z86.79 PERSONAL HISTORY OF OTHER DISEASES OF 03/01/2016 ISREAL SMITH FACC, ALI FACP CCDS Ot 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 PULMONARY HYPERTENSION 03/01/2016 ISREAL SMITH FACC, MARCK FACP CCDS Ot I34.0 NONRHEUMATIC MITRAL (VALVE) INSUFFICIENC 03/01/2016 ISREAL SMITH FACC ALI FACP CCDS Ot I35.0 NONRHEUMATIC AORTIC (VALVE) STENOSIS 03/01/2016 ISREAL SMITH FACC, ALI FACP CCDS Ot I48.2 CHRONIC ATRIAL FIBRILLATION 03/01/2016 ISREAL SMITH FACC, MARCK FACP CCDS Ot I50.23 ACUTE ON CHRONIC SYSTOLIC (CONGESTIVE) H 03/01/2016 MARCK BACH MD, FACC FACP CCDS Ot R06.02 SHORTNESS OF BREATH 03/01/2016 MARCK BACH MD, FACC FACP CCDS Ot E66.9 OBESITY, UNSPECIFIED 03/01/2016 ISREAL SMITH FACC, MARCK FACP CCDS Ot I08.0 RHEUMATIC DISORDERS OF BOTH MITRAL AND A 03/01/2016 ISREAL SMITH FACC, ALI FACP CCDS Ot I25.10 ATHSCL HEART DISEASE OF [place] CORONARY 03/01/2016 ISREAL SMITH FACC, ALI FACP CCDS Ot I25.84 CORONARY ATHEROSCLEROSIS DUE TO CALCIFIE 03/01/2016 ISREAL SMITH FACC, ALI FACP CCDS Ot 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 PULMONARY HYPERTENSION 03/01/2016 ISREAL SMTIH FACC, MARCK FACP CCDS Ot I48.2 CHRONIC ATRIAL FIBRILLATION 03/01/2016 ISREAL SMITH FACC, ALI FACP CCDS Ot I50.22 CHRONIC SYSTOLIC (CONGESTIVE) HEART FAIL 03/01/2016 MARCK BACH MD, FACC FACP CCDS Ot J44.9 CHRONIC OBSTRUCTIVE PULMONARY DISEASE, U 03/01/2016 ISREAL SMITH FACC ALI FACP CCDS Ot N18.3 CHRONIC KIDNEY DISEASE, STAGE 3 (MODERAT 03/01/2016 MARCK BACH MD, FACC FACP CCDS Ot Z68.35 BODY MASS INDEX (BMI) 35.0-35.9, ADULT 03/01/2016 ISREAL SMITH FACC ALI FACP CCDS Ot 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 03/01/2016 ISREAL SMITH FACC ALI FACP CCDS Ot Z79.899 OTHER 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 (CURRENT) DRUG THERAPY 03/03/2016 MARCK BACH MD, FACC FACP CCDS Ot E66.9 OBESITY, UNSPECIFIED 03/03/2016 MARCK BACH MD, FACC FACP CCDS Ot I25.10 ATHSCL HEART DISEASE OF [place] CORONARY 03/03/2016 ISREAL SMITH FACC ALI FACP CCDS Ot I48.2 CHRONIC ATRIAL FIBRILLATION 03/03/2016 ISREAL SMITH FACC, ALI FACP CCDS Ot I73.9 PERIPHERAL VASCULAR DISEASE, UNSPECIFIED 03/03/2016 ISREAL SMITH FACC, ALI FACP CCDS Ot Z86.79 PERSONAL HISTORY OF OTHER DISEASES OF TH 03/03/2016 ISREAL SMITH FACC ALI FACP CCDS Ot E66.9 OBESITY, UNSPECIFIED 03/03/2016 ISREAL SMITH FACC ALI FACP CCDS Ot I25.10 ATHSCL HEART DISEASE OF [place] CORONARY 03/03/2016 ISREAL MD FACC, ALI FACP CCDS Ot I48.2 CHRONIC ATRIAL FIBRILLATION 03/03/2016 ISREAL SMITH FACC, ALI FACP CCDS Ot I73.9 PERIPHERAL VASCULAR DISEASE, UNSPECIFIED 03/03/2016 ISREAL SMITH FACC, ALI FACP CCDS Ot Z86.79 PERSONAL HISTORY OF OTHER DISEASES OF 03/04/2016 ISREAL SMITH FACC, ALI FACP CCDS Ot N18.3 CHRONIC KIDNEY DISEASE, STAGE 3 (MODERAT 03/08/2016 ISREAL SMITH FACC, ALI FACP CCDS Ot E66.9 OBESITY, UNSPECIFIED 03/08/2016 ISREAL SMITH FACC, ALI FACP CCDS Ot I25.10 ATHSCL HEART DISEASE OF [place] CORONARY 03/08/2016 ISREAL SMITH FACC, ALI FACP CCDS Ot I48.2 CHRONIC ATRIAL FIBRILLATION 03/08/2016 ISREAL SMITH FACC, ALI FACP CCDS Ot I73.9 PERIPHERAL VASCULAR DISEASE, UNSPECIFIED 03/08/2016 ISREAL SMITH FACC, ALI FACP CCDS Ot Z86.79 PERSONAL HISTORY OF OTHER DISEASES OF 03/09/2016 ISREAL SMITH FACC, ALI FACP CCDS Ot E66.9 OBESITY, UNSPECIFIED 03/09/2016 ISREAL SMITH FACC, ALI FACP CCDS Ot I25.10 ATHSCL HEART DISEASE OF [place] CORONARY 03/09/2016 ISREAL SMITH FACC, ALI FACP CCDS Ot I48.2 CHRONIC ATRIAL FIBRILLATION 03/09/2016 ISREAL SMITH FACC, ALI FACP CCDS Ot I73.9 PERIPHERAL VASCULAR DISEASE, UNSPECIFIED 03/09/2016 ISREAL SMITH FACC, ALI FACP CCDS Ot Z86.79 PERSONAL HISTORY OF OTHER DISEASES OF 03/09/2016 ISREAL SMITH FACC, ALI FACP CCDS Ot E66.9 OBESITY, UNSPECIFIED 03/09/2016 ISREAL SMITH FACC, ALI FACP CCDS Ot I25.10 ATHSCL HEART DISEASE OF [place] CORONARY 03/09/2016 ISREAL SMITH FACC, ALI FACP CCDS Ot I48.2 CHRONIC ATRIAL FIBRILLATION 03/09/2016 ISREAL SMITH FACC, ALI FACP CCDS Ot I73.9 PERIPHERAL VASCULAR DISEASE, UNSPECIFIED 03/09/2016 ISREAL SMITH FACC, ALI FACP CCDS Ot Z86.79 PERSONAL HISTORY OF OTHER DISEASES OF 03/09/2016 ISREAL SMITH FACC, ALI FACP CCDS Ot E66.09 OTHER OBESITY DUE TO EXCESS CALORIES 03/09/2016 ISREAL MD FACC, ALI FACP CCDS Ot I25.10 ATHSCL HEART DISEASE OF [place] CORONARY 03/09/2016 ISREAL MD FACC, ALI FACP CCDS Ot I48.2 CHRONIC ATRIAL FIBRILLATION 03/09/2016 ISREAL MD FACC, ALI FACP CCDS Ot I73.9 PERIPHERAL VASCULAR DISEASE, UNSPECIFIED 03/09/2016 ISREAL MD FACC, ALI FACP CCDS Ot R06.02 SHORTNESS OF BREATH 03/09/2016 ISREAL MD FACC, ALI FACP CCDS Ot Z86.79 PERSONAL HISTORY OF OTHER DISEASES OF 03/15/2016 ISREAL SMITH FACC, ALI FACP CCDS Ot E66.9 OBESITY, UNSPECIFIED 03/15/2016 ISREAL MD FACC, ALI FACP CCDS Ot I25.10 ATHSCL HEART DISEASE OF [place] CORONARY 03/15/2016 ISREAL SMITH FACC, ALI FACP CCDS Ot I48.2 CHRONIC ATRIAL FIBRILLATION 03/15/2016 ISREAL SMITH FACC, ALI FACP CCDS Ot I73.9 PERIPHERAL VASCULAR DISEASE, UNSPECIFIED 03/15/2016 ISREAL SMITH FACC, ALI FACP CCDS Ot R06.02 SHORTNESS OF BREATH 03/15/2016 ISREAL SMITH FACC, ALI FACP CCDS Ot Z86.79 PERSONAL HISTORY OF OTHER DISEASES OF 03/18/2016 ISREAL SMITH FACC, ALI FACP CCDS Ot E66.9 OBESITY, UNSPECIFIED 03/18/2016 ISREAL SMITH FACC, ALI FACP CCDS Ot I25.10 ATHSCL HEART DISEASE OF [place] CORONARY 03/18/2016 ISREAL SMITH FACC, ALI FACP CCDS Ot I48.2 CHRONIC ATRIAL FIBRILLATION 03/18/2016 ISREAL MD FACC, ALI FACP CCDS Ot I73.9 PERIPHERAL VASCULAR DISEASE, UNSPECIFIED 03/18/2016 ISREAL MD FACC, ALI FACP CCDS Ot R06.02 SHORTNESS OF BREATH 03/18/2016 ISREAL SMITH FACC, ALI FACP CCDS Ot Z86.79 PERSONAL HISTORY OF OTHER DISEASES OF 03/23/2016 NORIS JANE DO Ot E66. 09 OTHER OBESITY DUE TO EXCESS CALORIES 03/23/2016 NORIS JANE DO Ot I50. 23 ACUTE ON CHRONIC SYSTOLIC (CONGESTIVE) H 03/23/2016 NORIS JANE DO Ot R06. 02 SHORTNESS OF BREATH 03/30/2016 ISREAL SMITH FACC, ALI FACP CCDS Ot E66.9 OBESITY, UNSPECIFIED 03/30/2016 ISREAL SMITH FACC, ALI FACP CCDS Ot I08.0 RHEUMATIC DISORDERS OF BOTH MITRAL AND A 03/30/2016 ISREAL SMITH FACC, ALI FACP CCDS Ot I25.10 ATHSCL HEART DISEASE OF [place] CORONARY 03/30/2016 ISREAL SMITH FACC, ALI FACP CCDS Ot I25.84 CORONARY ATHEROSCLEROSIS DUE TO CALCIFIE 03/30/2016 ISREAL SMITH FACC, MARCK FACP CCDS Ot 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 PULMONARY HYPERTENSION 03/30/2016 ISREAL SMITH FACC, ALI FACP CCDS Ot I48.2 CHRONIC ATRIAL FIBRILLATION 03/30/2016 ISREAL SMITH FACC, MARCK FACP CCDS Ot I50.22 CHRONIC SYSTOLIC (CONGESTIVE) HEART FAIL 03/30/2016 ISREAL SMITH FACC, MARCK FACP CCDS Ot J44.9 CHRONIC OBSTRUCTIVE PULMONARY DISEASE, U 03/30/2016 ISREAL SMITH FACC, ALI FACP CCDS Ot N18.3 CHRONIC KIDNEY DISEASE, STAGE 3 (MODERAT 03/30/2016 ISREAL SMITH FACC, ALI FACP CCDS Ot Z68.35 BODY MASS INDEX (BMI) 35.0-35.9, ADULT 03/30/2016 MARCK BACH MD, FACC FACP CCDS Ot Z79.01 HALFWAY (CURRENT) USE OF ANTICOAGULANT 03/30/2016 ISREAL SMITH FACC, ALI FACP CCDS Ot Z79.899 OTHER 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 (CURRENT) DRUG THERAPY 04/03/2016 HECTOR ARMENDARIZ DOI Ot J18.9 PNEUMONIA, UNSPECIFIED ORGANISM 04/03/2016 HECTOR ARMENDARIZ DOI Ot J44.0 CHRONIC OBSTRUCTIVE PULMON DISEASE W ACU 04/03/2016 HECTOR ARMENDARIZ DOI Ot K21.9 GASTRO-ESOPHAGEAL REFLUX DISEASE WITHOUT 04/03/2016 HECTOR ARMENDARIZ DOI Ot K59.09 OTHER CONSTIPATION 04/03/2016 HECTOR ARMENDARIZ DOI Ot Z87.89 1 PERSONAL HISTORY OF NICOTINE DEPENDENCE 04/04/2016 ARMENDARIZ DO, BUCK Ot J18.9 PNEUMONIA, UNSPECIFIED ORGANISM 04/04/2016 ARMENDARIZ DO, BUCK Ot J44.0 CHRONIC OBSTRUCTIVE PULMON DISEASE W [facility] 04/04/2016 ARMENDARIZ DO, BUCK Ot K21.9 GASTRO-ESOPHAGEAL REFLUX DISEASE WITHOUT 04/04/2016 ARMENDARIZ DO, BUCK Ot K59.09 OTHER CONSTIPATION 04/04/2016 ARMENDARIZ DO, BUCK Ot Z87.89 1 PERSONAL HISTORY OF NICOTINE DEPENDENCE 04/04/2016 ARMENDARIZ DO, BUCK Ot J18.9 PNEUMONIA, UNSPECIFIED ORGANISM 04/04/2016 ARMENDARIZ DO, BUCK Ot J44.0 CHRONIC OBSTRUCTIVE PULMON DISEASE W [facility] 04/04/2016 ARMENDARIZ DO, BUCK Ot K21.9 GASTRO-ESOPHAGEAL REFLUX DISEASE WITHOUT 04/04/2016 ARMENDARIZ DO, BUCK Ot K59.09 OTHER CONSTIPATION 04/04/2016 ARMENDARIZ DO, BUCK Ot Z87.89 1 PERSONAL HISTORY OF NICOTINE DEPENDENCE 04/05/2016 ARMENDARIZ DO BUCK Ot J18.9 PNEUMONIA, UNSPECIFIED ORGANISM 04/05/2016 ARMENDARIZ DO, BUCK Ot J44.0 CHRONIC OBSTRUCTIVE PULMON DISEASE W [facility] 04/05/2016 ARMENDARIZ DO, BUCK Ot K21.9 GASTRO-ESOPHAGEAL REFLUX DISEASE WITHOUT 04/05/2016 ARMENDARIZ DO, BUCK Ot K59.09 OTHER CONSTIPATION 04/05/2016 ARMENDARIZ DO, BUCK Ot Z87.89 1 PERSONAL HISTORY OF NICOTINE DEPENDENCE 04/05/2016 ARMENDARIZ DO BUCK Ot E78.5 HYPERLIPIDEMIA, UNSPECIFIED 04/05/2016 ARMENDARIZ DO, BUCK Ot E87.1 HYPO-OSMOLALITY AND HYPONATREMIA 04/05/2016 MARCELLO DO BUCK Ot I08.0 RHEUMATIC DISORDERS OF BOTH MITRAL AND A 04/05/2016 ARMENDARIZ DO BUCK Ot I25.10 ATHSCL HEART DISEASE OF [place] CORONARY 04/05/2016 MARCELLO DO BUCK Ot 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 PULMONARY HYPERTENSION 04/05/2016 MARCELLO DO BUCK Ot I48.2 CHRONIC ATRIAL FIBRILLATION 04/05/2016 MARCELLO DO BUCK Ot 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 04/05/2016 MARCELLO DO BUCK Ot I50.9 HEART FAILURE, UNSPECIFIED 04/05/2016 MARCELLO DO BUCK Ot J18.9 PNEUMONIA, UNSPECIFIED ORGANISM 04/05/2016 ARMENDARIZ BUCK Ot J44.0 CHRONIC OBSTRUCTIVE PULMON DISEASE W ACU 04/05/2016 BUCK ARMENDARIZ DO Ot J44.1 CHRONIC OBSTRUCTIVE PULMONARY DISEASE W 04/05/2016 BUCK ARMENDARIZ DO Ot K21.9 GASTRO-ESOPHAGEAL REFLUX DISEASE WITHOUT 04/05/2016 HECTOR ARMENDARIZ DOI Ot K59.09 OTHER CONSTIPATION 04/05/2016 ARMENDARIZHECTOR RINCON DOI Ot N18.2 CHRONIC KIDNEY DISEASE, STAGE 2 (MILD) 04/05/2016 HECTOR ARMENDARIZ DOI Ot 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 04/05/2016 HECTOR ARMENDARIZ DOI Ot Z87.89 1 PERSONAL HISTORY OF NICOTINE DEPENDENCE 05/18/2016 ISREAL SMITH FACC, MARCK FACP CCDS Ot E66.9 OBESITY, UNSPECIFIED 05/18/2016 ISREAL SMITH FACC, ALI FACP CCDS Ot I25.10 ATHSCL HEART DISEASE OF [place] CORONARY 05/18/2016 ISREAL SMITH FACC, MARCK FACP CCDS Ot I48.2 CHRONIC ATRIAL FIBRILLATION 05/18/2016 IRSEAL SMITH FACC, ALI FACP CCDS Ot I73.9 PERIPHERAL VASCULAR DISEASE, UNSPECIFIED 05/18/2016 ISREAL SMITH FACC, ALI FACP CCDS Ot Z86.79 PERSONAL HISTORY OF OTHER DISEASES OF 05/18/2016 ISREAL SMITH FACC, ALI FACP CCDS Ot E66.9 OBESITY, UNSPECIFIED 05/18/2016 ISREAL SMITH FACC, ALI FACP CCDS Ot I25.10 ATHSCL HEART DISEASE OF [place] CORONARY 05/18/2016 ISREAL SMITH FACC, MARCK FACP CCDS Ot I48.2 CHRONIC ATRIAL FIBRILLATION 05/18/2016 ISRELA SMITH FACC, ALI FACP CCDS Ot I73.9 PERIPHERAL VASCULAR DISEASE, UNSPECIFIED 05/18/2016 ISREAL SMITH FACC ALI FACP CCDS Ot R06.02 SHORTNESS OF BREATH 05/18/2016 ISREAL SMITH FACC, ALI FACP CCDS Ot Z86.79 PERSONAL HISTORY OF OTHER DISEASES OF 05/18/2016 ISREAL SMITH FACC ALI FACP CCDS Ot E66.09 OTHER OBESITY DUE TO EXCESS CALORIES 05/18/2016 ISREAL SMITH FACC, ALI FACP CCDS Ot I25.10 ATHSCL HEART DISEASE OF [place] CORONARY 05/18/2016 ISREAL CHASE, ALI FACP CCDS Ot I48.2 CHRONIC ATRIAL FIBRILLATION 05/18/2016 ISREAL SMITH FACC, ALI FACP CCDS Ot I73.9 PERIPHERAL VASCULAR DISEASE, UNSPECIFIED 05/18/2016 ISREAL SMITH FACC, ALI FACP CCDS Ot R06.02 SHORTNESS OF BREATH 05/18/2016 ISREAL SMITH FACC, ALI FACP CCDS Ot Z86.79 PERSONAL HISTORY OF OTHER DISEASES OF 05/18/2016 ISREAL SMITH FACC, ALI FACP CCDS Ot N18.3 CHRONIC KIDNEY DISEASE, STAGE 3 (MODERAT 05/18/2016 NORIS JANE DO Ot E66. 09 OTHER OBESITY DUE TO EXCESS CALORIES 05/18/2016 NORIS JANE DO Ot I50. 23 ACUTE ON CHRONIC SYSTOLIC (CONGESTIVE) H 05/18/2016 NORIS JANE DO Ot R06. 02 SHORTNESS OF BREATH 05/18/2016 JOSH SNEED ACTIVE DIRECTORY SYSTEMS ADMINISTRATOR Ot I25.10 ATHSCL HEART DISEASE OF [place] CORONARY 05/18/2016 JOSH SNEED L ACTIVE DIRECTORY SYSTEMS ADMINISTRATOR Ot I25.10 ATHSCL HEART DISEASE OF [place] CORONARY 05/18/2016 JOSH SNEED L ACTIVE DIRECTORY SYSTEMS ADMINISTRATOR Ot I25.10 ATHSCL HEART DISEASE OF [place] CORONARY 05/19/2016 JOSH SNEED L ACTIVE DIRECTORY SYSTEMS ADMINISTRATOR Ot I25.10 ATHSCL HEART DISEASE OF [place] CORONARY 05/19/2016 MANUEL SNEEDHER L ACTIVE DIRECTORY SYSTEMS ADMINISTRATOR Ot I34.0 NONRHEUMATIC MITRAL (VALVE) INSUFFICIENC 05/19/2016 NAREN JOSH L ACTIVE DIRECTORY SYSTEMS ADMINISTRATOR Ot I35.0 NONRHEUMATIC AORTIC (VALVE) STENOSIS 05/19/2016 JOSH SNEED L ACTIVE DIRECTORY SYSTEMS ADMINISTRATOR Ot I48.2 CHRONIC ATRIAL FIBRILLATION 05/19/2016 MANUEL SNEEDHER L ACTIVE DIRECTORY SYSTEMS ADMINISTRATOR Ot 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 05/19/2016 JOSH SNEED L ACTIVE DIRECTORY SYSTEMS ADMINISTRATOR Ot 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 05/24/2016 BECK ESTEVES MD Ot E78.00 PURE HYPERCHOLESTEROLEMIA, UNSPECIFIED 05/24/2016 BECK ESTEVES MD Ot E78 .5 HYPERLIPIDEMIA, UNSPECIFIED 05/24/2016 BECK ESTEVES MD Ot E87 .1 HYPO-OSMOLALITY AND HYPONATREMIA 05/24/2016 BECK ESTEVES MD Ot F32 .9 MAJOR DEPRESSIVE DISORDER, SINGLE EPISOD 05/24/2016 BECK ESTEVES MD Ot 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 05/24/2016 BECK ESTEVES MD Ot I27 .2 OTHER SECONDARY PULMONARY HYPERTENSION 05/24/2016 BECK ESTEVES MD Ot I48 .2 CHRONIC ATRIAL FIBRILLATION 05/24/2016 BECK ESTEVES MD Ot I50.43 ACUTE ON CHRONIC COMBINED SYSTOLIC AND D 05/24/2016 BECK ESTEVES MD Ot J44 .1 CHRONIC OBSTRUCTIVE PULMONARY DISEASE W 05/24/2016 BECK ESTEVES MD Ot K21 .9 GASTRO-ESOPHAGEAL REFLUX DISEASE WITHOUT 05/24/2016 BECK ESTEVES MD Ot K59.09 OTHER CONSTIPATION 05/24/2016 BECK ESTEVES MD Ot M19.90 UNSPECIFIED OSTEOARTHRITIS, UNSPECIFIED 05/24/2016 BECK ESTEVES MD Ot N18 .2 CHRONIC KIDNEY DISEASE, STAGE 2 (MILD) 05/24/2016 BECK ESTEVES MD Ot Z79.01 HALFWAY (CURRENT) USE OF ANTICOAGULANT 05/24/2016 BECK ESTEVES MD Ot Z87.891 PERSONAL HISTORY OF NICOTINE DEPENDENCE 05/25/2016 BECK ESTEVES MD Ot E78.00 PURE HYPERCHOLESTEROLEMIA, UNSPECIFIED 05/25/2016 BECK ESTEVES MD Ot E78 .5 HYPERLIPIDEMIA, UNSPECIFIED 05/25/2016 BECK ESTEVES MD Ot E87 .1 HYPO-OSMOLALITY AND HYPONATREMIA 05/25/2016 BECK ESTEVES MD Ot F32 .9 MAJOR DEPRESSIVE DISORDER, SINGLE EPISOD 05/25/2016 BECK ESTEVES MD Ot 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 05/25/2016 BECK ESTEVES MD Ot I27 .2 OTHER SECONDARY PULMONARY HYPERTENSION 05/25/2016 BECK ESTEVES MD Ot I48 .2 CHRONIC ATRIAL FIBRILLATION 05/25/2016 BECK ESTEVES MD Ot I50.43 ACUTE ON CHRONIC COMBINED SYSTOLIC AND D 05/25/2016 BECK ESTEVES MD Ot J44 .1 CHRONIC OBSTRUCTIVE PULMONARY DISEASE W 05/25/2016 BECK ESTEVES MD Ot K21 .9 GASTRO-ESOPHAGEAL REFLUX DISEASE WITHOUT 05/25/2016 BECK ESTEVES MD, Ot K59.09 OTHER CONSTIPATION 05/25/2016 BECK ESTEVES MD, Ot M19.90 UNSPECIFIED OSTEOARTHRITIS, UNSPECIFIED 05/25/2016 BECK ESTEVES MD, Ot N18 .2 CHRONIC KIDNEY DISEASE, STAGE 2 (MILD) 05/25/2016 BECK ESTEVES MD, Ot 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 05/25/2016 BECK ESTEVES MD, Ot Z87.891 PERSONAL HISTORY OF NICOTINE DEPENDENCE 05/25/2016 BECK ESTEVES MD, Ot 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 05/25/2016 BECK ESTEVES MD, Ot E66 .2 MORBID (SEVERE) OBESITY WITH ALVEOLAR HY 05/25/2016 BECK ESTEVES MD Ot E78.00 PURE HYPERCHOLESTEROLEMIA, UNSPECIFIED 05/25/2016 BECK ESTEVES MD Ot E78 .5 HYPERLIPIDEMIA, UNSPECIFIED 05/25/2016 BECK ESTEVES MD, Ot E87 .1 HYPO-OSMOLALITY AND HYPONATREMIA 05/25/2016 BECK ESTEVES MD Ot F32 .9 MAJOR DEPRESSIVE DISORDER, SINGLE EPISOD 05/25/2016 BECK ESTEVES MD Ot 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 05/25/2016 BECK ESTEVES MD, Ot 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 05/25/2016 BECK ESTEVES MD Ot I27 .2 OTHER SECONDARY PULMONARY HYPERTENSION 05/25/2016 BECK ESTEVES MD Ot I48 .2 CHRONIC ATRIAL FIBRILLATION 05/25/2016 BECK ESTEVES MD Ot I50.43 ACUTE ON CHRONIC COMBINED SYSTOLIC AND D 05/25/2016 BECK ESTEVES MD Ot 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 05/25/2016 BECK ESTEVES MD, Ot J44 .1 CHRONIC OBSTRUCTIVE PULMONARY DISEASE W 05/25/2016 BECK ESTEVES MD, Ot K21 .9 GASTRO-ESOPHAGEAL REFLUX DISEASE WITHOUT 05/25/2016 BECK ESTEVES MD Ot K59.09 OTHER CONSTIPATION 05/25/2016 BECK ESTEVES MD Ot M06 .9 RHEUMATOID ARTHRITIS, UNSPECIFIED 05/25/2016 BECK ESTEVES MD Ot M19.90 UNSPECIFIED OSTEOARTHRITIS, UNSPECIFIED 05/25/2016 BECK ESTEVES MD Ot N18 .2 CHRONIC KIDNEY DISEASE, STAGE 2 (MILD) 05/25/2016 BECK ESTEVES MD Ot Z68.37 BODY MASS INDEX (BMI) 37.0-37.9, ADULT 05/25/2016 BECK ESTEVES MD Ot 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 05/25/2016 BECK ESTEVES MD Ot Z87.891 PERSONAL HISTORY OF NICOTINE DEPENDENCE 05/26/2016 ISREAL SMITH FACC, ALI FACP CCDS Ot E66.09 OTHER OBESITY DUE TO EXCESS CALORIES 05/26/2016 ISREAL SMITH FACC, ALI FACP CCDS Ot I25.10 ATHSCL HEART DISEASE OF [place] CORONARY 05/26/2016 ISREAL SMITH FACC, ALI FACP CCDS Ot I48.2 CHRONIC ATRIAL FIBRILLATION 05/26/2016 ISREAL SMITH FACC, ALI FACP CCDS Ot I73.9 PERIPHERAL VASCULAR DISEASE, UNSPECIFIED 05/26/2016 ISREAL SMITH FACC, ALI FACP CCDS Ot R06.02 SHORTNESS OF BREATH 05/26/2016 ISREAL SMITH FACC, ALI FACP CCDS Ot Z86.79 PERSONAL HISTORY OF OTHER DISEASES OF TH 05/26/2016 ISREAL SMITH FACC, ALI FACP CCDS Ot N18.3 CHRONIC KIDNEY DISEASE, STAGE 3 (MODERAT 05/26/2016 NORIS JANE DO Ot E66. 09 OTHER OBESITY DUE TO EXCESS CALORIES 05/26/2016 NORIS JANE DO Ot I50. 23 ACUTE ON CHRONIC SYSTOLIC (CONGESTIVE) H 05/26/2016 NORIS JANE DO Ot R06. 02 SHORTNESS OF BREATH 05/26/2016 JOSH SNEED ACTIVE DIRECTORY SYSTEMS ADMINISTRATOR Ot I25.10 ATHSCL HEART DISEASE OF [place] CORONARY 05/26/2016 JOSH SNEED L ACTIVE DIRECTORY SYSTEMS ADMINISTRATOR Ot I34.0 NONRHEUMATIC MITRAL (VALVE) INSUFFICIENC 05/26/2016 JOSH SNEED L ACTIVE DIRECTORY SYSTEMS ADMINISTRATOR Ot I35.0 NONRHEUMATIC AORTIC (VALVE) STENOSIS 05/26/2016 JOSH SNEED L ACTIVE DIRECTORY SYSTEMS ADMINISTRATOR Ot I48.2 CHRONIC ATRIAL FIBRILLATION 05/26/2016 JOSH SNEED ACTIVE DIRECTORY SYSTEMS ADMINISTRATOR Ot 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 05/26/2016 RUBÉNJOSH FLORES ACTIVE DIRECTORY SYSTEMS ADMINISTRATOR Ot I70.213 ATHSCL [place] ARTERIES OF EXTRM W INTRMT 09/20/2016 NEGRITO THOMPSON MD Ot D64.9 ANEMIA, UNSPECIFIED 09/20/2016 NEGRITO THOMPSON MD Ot D69.6 THROMBOCYTOPENIA, UNSPECIFIED 09/20/2016 NEGRITO THOMPSON MD Ot E11.9 TYPE 2 DIABETES MELLITUS WITHOUT COMPLIC 09/20/2016 NEGRITO THOMPSON MD Ot E87.6 HYPOKALEMIA 09/20/2016 NEGRITO THOMPSON MD Ot I25.1 0 ATHSCL HEART DISEASE OF [place] CORONARY 09/20/2016 NEGRITO THOMPSON MD Ot I48.9 1 UNSPECIFIED ATRIAL FIBRILLATION 09/20/2016 NEGRITO THOMPSON MD Ot R06.8 9 OTHER ABNORMALITIES OF BREATHING 09/20/2016 NEGRITO THOMPSON MD Ot Z48.8 12 ENCNTR FOR SURGICAL AFTCR FOLLOWING SURG 09/20/2016 NEGRITO THOMPSON MD Ot Z87.8 91 PERSONAL HISTORY OF NICOTINE DEPENDENCE 09/20/2016 NEGRITO THOMPSON MD Ot Z95.1 PRESENCE OF AORTOCORONARY BYPASS GRAFT 09/20/2016 NEGRITO THOMPSON MD Ot Z95.2 PRESENCE OF PROSTHETIC HEART VALVE 09/20/2016 NEGRITO THOMPSON MD Ot Z99.8 1 DEPENDENCE ON SUPPLEMENTAL OXYGEN 09/21/2016 NEGRITO THOMPSON MD Ot D64.9 ANEMIA, UNSPECIFIED 09/21/2016 NEGRITO THOMPSON MD Ot D69.6 THROMBOCYTOPENIA, UNSPECIFIED 09/21/2016 NEGRITO THOMPSON MD Ot E11.9 TYPE 2 DIABETES MELLITUS WITHOUT COMPLIC 09/21/2016 NEGRITO THOMPSON MD Ot E87.6 HYPOKALEMIA 09/21/2016 NEGRITO THOMPSON MD Ot 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 0 ATHSCL HEART DISEASE OF [place] CORONARY 09/21/2016 NEGRITO THOMPSON MD Ot I48.9 1 UNSPECIFIED ATRIAL FIBRILLATION 09/21/2016 NEGRITO THOMPSON MD Ot R06.8 9 OTHER ABNORMALITIES OF BREATHING 09/21/2016 NEGRITO THOMPSON MD Ot Z48.8 12 ENCNTR FOR SURGICAL AFTCR FOLLOWING SURG 09/21/2016 NEGRITO THOMPSON MD Ot Z87.8 91 PERSONAL HISTORY OF NICOTINE DEPENDENCE 09/21/2016 NEGRITO THOMPSON MD Ot Z95.1 PRESENCE OF AORTOCORONARY BYPASS GRAFT 09/21/2016 NEGRITO THOMPSON MD Ot Z95.2 PRESENCE OF PROSTHETIC HEART VALVE 09/21/2016 NEGRITO THOMPSON MD Ot Z99.8 1 DEPENDENCE ON SUPPLEMENTAL OXYGEN 09/21/2016 NEGRITO THOMPSON MD Ot D64.9 ANEMIA, UNSPECIFIED 09/21/2016 NEGRITO THOMPSON MD Ot D69.6 THROMBOCYTOPENIA, UNSPECIFIED 09/21/2016 NEGRITO THOMPSON MD Ot E11.9 TYPE 2 DIABETES MELLITUS WITHOUT COMPLIC 09/21/2016 NEGRITO THOMPSON MD Ot E87.6 HYPOKALEMIA 09/21/2016 NEGRITO THOMPSON MD Ot I25.1 0 ATHSCL HEART DISEASE OF [place] CORONARY 09/21/2016 NEGRITO THOMPSON MD Ot I48.9 1 UNSPECIFIED ATRIAL FIBRILLATION 09/21/2016 NEGRITO THOMPSON MD E Ot R06.8 9 OTHER ABNORMALITIES OF BREATHING 09/21/2016 NEGRITO THOMPSON MD Ot Z48.8 12 ENCNTR FOR SURGICAL AFTCR FOLLOWING SURG 09/21/2016 NEGRITO THOMPSON MD Ot Z87.8 91 PERSONAL HISTORY OF NICOTINE DEPENDENCE 09/21/2016 NEGRITO THOMPSON MD Ot Z95.1 PRESENCE OF AORTOCORONARY BYPASS GRAFT 09/21/2016 NEGRITO THOMPSON MD Ot Z95.2 PRESENCE OF PROSTHETIC HEART VALVE 09/21/2016 NEGRITO THOMPSON MD Ot Z99.8 1 DEPENDENCE ON SUPPLEMENTAL OXYGEN 09/21/2016 NEGRITO THOMPSON MD Ot D64.9 ANEMIA, UNSPECIFIED 09/21/2016 NEGRITO THOMPSON MD E Ot D69.6 THROMBOCYTOPENIA, UNSPECIFIED 09/21/2016 NEGRITO THOMPSON MD E Ot E11.9 TYPE 2 DIABETES MELLITUS WITHOUT COMPLIC 09/21/2016 NEGRITO THOMPSON MD Ot E87.6 HYPOKALEMIA 09/21/2016 NEGRITO THOMPSON MD Ot I25.1 0 ATHSCL HEART DISEASE OF [place] CORONARY 09/21/2016 NEGRITO THOMPSON MD E Ot I48.9 1 UNSPECIFIED ATRIAL FIBRILLATION 09/21/2016 NEGRITO THOMPSON MD E Ot R06.8 9 OTHER ABNORMALITIES OF BREATHING 09/21/2016 NEGRITO THOMPSON MD Ot Z48.8 12 ENCNTR FOR SURGICAL AFTCR FOLLOWING SURG 09/21/2016 NEGRITO THOMPSON MD Ot Z87.8 91 PERSONAL HISTORY OF NICOTINE DEPENDENCE 09/21/2016 NEGRITO THOMPSON MD Ot Z95.1 PRESENCE OF AORTOCORONARY BYPASS GRAFT 09/21/2016 NEGRITO THOMPSON MD Ot Z95.2 PRESENCE OF PROSTHETIC HEART VALVE 09/21/2016 NEGRITO THOMPSON MD Ot Z99.8 1 DEPENDENCE ON SUPPLEMENTAL OXYGEN 09/21/2016 NEGRITO THOMPSON MD Ot D64.9 ANEMIA, UNSPECIFIED 09/21/2016 NEGRITO THOMPSON MD Ot D69.6 THROMBOCYTOPENIA, UNSPECIFIED 09/21/2016 NEGRITO THOMPSON MD Ot E11.9 TYPE 2 DIABETES MELLITUS WITHOUT COMPLIC 09/21/2016 NEGRITO THOMPSON MD Ot E87.6 HYPOKALEMIA 09/21/2016 NEGRITO THOMPSON MD Ot I25.1 0 ATHSCL HEART DISEASE OF [place] CORONARY 09/21/2016 NEGRITO THOMPSON MD Ot I48.9 1 UNSPECIFIED ATRIAL FIBRILLATION 09/21/2016 NEGRITO THOMPSON MD Ot R06.8 9 OTHER ABNORMALITIES OF BREATHING 09/21/2016 NEGRITO THOMPSON MD Ot Z48.8 12 ENCNTR FOR SURGICAL AFTCR FOLLOWING SURG 09/21/2016 NEGRITO THOMPSON MD Ot Z87.8 91 PERSONAL HISTORY OF NICOTINE DEPENDENCE 09/21/2016 NEGRITO THOMPSON MD Ot Z95.1 PRESENCE OF AORTOCORONARY BYPASS GRAFT 09/21/2016 NEGRITO THOMPSON MD Ot Z95.2 PRESENCE OF PROSTHETIC HEART VALVE 09/21/2016 NEGRITO THOMPSON MD Ot Z99.8 1 DEPENDENCE ON SUPPLEMENTAL OXYGEN 09/21/2016 MARCK BACH MD, FACC FACP CCDS Ot E66.09 OTHER OBESITY DUE TO EXCESS CALORIES 09/21/2016 ISREAL SMITH FACC, ALI FACP CCDS Ot I25.10 ATHSCL HEART DISEASE OF [place] CORONARY 09/21/2016 MARCK BACH MD, FACC FACP CCDS Ot I48.2 CHRONIC ATRIAL FIBRILLATION 09/21/2016 MARCK BACH MD, FACC FACP CCDS Ot I73.9 PERIPHERAL VASCULAR DISEASE, UNSPECIFIED 09/21/2016 MARCK BACH MD, FACC FACP CCDS Ot R06.02 SHORTNESS OF BREATH 09/21/2016 MARCK BACH MD, FACC FACP CCDS Ot Z86.79 PERSONAL HISTORY OF OTHER DISEASES OF TH 09/21/2016 ISREAL SMITH [facility], MARCK LEMA CCDS Ot N18.3 CHRONIC KIDNEY DISEASE, STAGE 3 (MODERAT 09/21/2016 LUCINDA NORIS Quevedo Ot E66. 09 OTHER OBESITY DUE TO EXCESS CALORIES 09/21/2016 LUCINDA OZUNA NORIS Quevedo Ot I50. 23 ACUTE ON CHRONIC SYSTOLIC (CONGESTIVE) H 09/21/2016 LUCINDA OZUNA NORIS Quevedo Ot R06. 02 SHORTNESS OF BREATH 09/21/2016 NAREN JOSH L ACTIVE DIRECTORY SYSTEMS ADMINISTRATOR Ot I25.10 ATHSCL HEART DISEASE OF [place] CORONARY 09/21/2016 NAREN JOSH L ACTIVE DIRECTORY SYSTEMS ADMINISTRATOR Ot I34.0 NONRHEUMATIC MITRAL (VALVE) INSUFFICIENC 09/21/2016 RUBÉNMA JOSH L ACTIVE DIRECTORY SYSTEMS ADMINISTRATOR Ot I35.0 NONRHEUMATIC AORTIC (VALVE) STENOSIS 09/21/2016 NAREN JOSH L ACTIVE DIRECTORY SYSTEMS ADMINISTRATOR Ot I48.2 CHRONIC ATRIAL FIBRILLATION 09/21/2016 MANUEL SNEEDHER L ACTIVE DIRECTORY SYSTEMS ADMINISTRATOR Ot 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 09/21/2016 NAREN JOSH L ACTIVE DIRECTORY SYSTEMS ADMINISTRATOR Ot I70.213 ATHSCL [place] ARTERIES OF EXTRM W INTRMT 09/21/2016 NEGRITO THOMPSON MD Ot D64.9 ANEMIA, UNSPECIFIED 09/21/2016 NEGRITO THOMPSON MD Ot D69.6 THROMBOCYTOPENIA, UNSPECIFIED 09/21/2016 NEGRITO THOMPSON MD Ot E11.9 TYPE 2 DIABETES MELLITUS WITHOUT COMPLIC 09/21/2016 NEGRITO THOMPSON MD Ot E87.6 HYPOKALEMIA 09/21/2016 NEGRITO THOMPSON MD Ot I25.1 0 ATHSCL HEART DISEASE OF [place] CORONARY 09/21/2016 NEGRITO THOMPSON MD Ot I48.9 1 UNSPECIFIED ATRIAL FIBRILLATION 09/21/2016 NEGRITO THOMPSON MD Ot R06.8 9 OTHER ABNORMALITIES OF BREATHING 09/21/2016 NEGRITO THOMPSON MD Ot Z48.8 12 ENCNTR FOR SURGICAL AFTCR FOLLOWING SURG 09/21/2016 NEGRITO THOMPSON MD Ot Z87.8 91 PERSONAL HISTORY OF NICOTINE DEPENDENCE 09/21/2016 NEGRITO THOMPSON MD Ot Z95.1 PRESENCE OF AORTOCORONARY BYPASS GRAFT 09/21/2016 THOMPSON MD, NEGRITO E Ot Z95.2 PRESENCE OF PROSTHETIC HEART VALVE 09/21/2016 NEGRITO THOMPSON MD E Ot Z99.8 1 DEPENDENCE ON SUPPLEMENTAL OXYGEN 09/21/2016 NEGRITO THOMPSON MD Ot D64.9 ANEMIA, UNSPECIFIED 09/21/2016 NEGRITO THOMPSON MD E Ot D69.6 THROMBOCYTOPENIA, UNSPECIFIED 09/21/2016 NEGRITO THOMPSON MD Ot E11.9 TYPE 2 DIABETES MELLITUS WITHOUT COMPLIC 09/21/2016 NEGRITO THOMPSON MD Ot E87.6 HYPOKALEMIA 09/21/2016 NEGRITO THOMPSON MD E Ot 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 0 ATHSCL HEART DISEASE OF [place] CORONARY 09/21/2016 NEGRITO THOMPSON MD E Ot I48.9 1 UNSPECIFIED ATRIAL FIBRILLATION 09/21/2016 NEGRITO THOMPSON MD Ot R06.8 9 OTHER ABNORMALITIES OF BREATHING 09/21/2016 NEGRITO THOMPSON MD Ot Z48.8 12 ENCNTR FOR SURGICAL AFTCR FOLLOWING SURG 09/21/2016 NEGRITO THOMPSON MD Ot Z87.8 91 PERSONAL HISTORY OF NICOTINE DEPENDENCE 09/21/2016 NEGRITO THOMPSON MD Ot Z95.1 PRESENCE OF AORTOCORONARY BYPASS GRAFT 09/21/2016 NEGRITO THOMPSON MD Ot Z95.2 PRESENCE OF PROSTHETIC HEART VALVE 09/21/2016 NEGRITO THOMPSON MD Ot Z99.8 1 DEPENDENCE ON SUPPLEMENTAL OXYGEN 09/21/2016 NEGRITO THOMPSON MD Ot D64.9 ANEMIA, UNSPECIFIED 09/21/2016 NEGRITO THOMPSON MD Ot D69.6 THROMBOCYTOPENIA, UNSPECIFIED 09/21/2016 NEGRITO THOMPSON MD Ot E11.9 TYPE 2 DIABETES MELLITUS WITHOUT COMPLIC 09/21/2016 NEGRITO THOMPSON MD Ot E87.6 HYPOKALEMIA 09/21/2016 NEGRITO THOMPSON MD Ot I25.1 0 ATHSCL HEART DISEASE OF [place] CORONARY 09/21/2016 NEGRITO THOMPSON MD Ot I48.9 1 UNSPECIFIED ATRIAL FIBRILLATION 09/21/2016 NEGRITO THOMPSON MD Ot R06.8 9 OTHER ABNORMALITIES OF BREATHING 09/21/2016 NEGRITO THOMPSON MD Ot Z48.8 12 ENCNTR FOR SURGICAL AFTCR FOLLOWING SURG 09/21/2016 NEGRITO THOMPSON MD Ot Z87.8 91 PERSONAL HISTORY OF NICOTINE DEPENDENCE 09/21/2016 THOMPSON MD, NEGRITO E Ot Z95.1 PRESENCE OF AORTOCORONARY BYPASS GRAFT 09/21/2016 NEGRITO THOMPSON MD Ot Z95.2 PRESENCE OF PROSTHETIC HEART VALVE 09/21/2016 NEGRITO THOMPSON MD E Ot Z99.8 1 DEPENDENCE ON SUPPLEMENTAL OXYGEN 09/22/2016 NEGRITO THOMPSON MD E Ot D64.9 ANEMIA, UNSPECIFIED 09/22/2016 NEGRITO THOMPSON MD E Ot D69.6 THROMBOCYTOPENIA, UNSPECIFIED 09/22/2016 NEGRITO THOMPSON MD E Ot E11.9 TYPE 2 DIABETES MELLITUS WITHOUT COMPLIC 09/22/2016 NEGRITO THOMPSON MD E Ot E87.6 HYPOKALEMIA 09/22/2016 NEGRITO THOMPSON MD E Ot 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 0 ATHSCL HEART DISEASE OF [place] CORONARY 09/22/2016 NEGRITO THOMPSON MD Ot I48.9 1 UNSPECIFIED ATRIAL FIBRILLATION 09/22/2016 NEGRITO THOMPSON MD E Ot R06.8 9 OTHER ABNORMALITIES OF BREATHING 09/22/2016 NEGRITO THOMPSON MD Ot Z48.8 12 ENCNTR FOR SURGICAL AFTCR FOLLOWING SURG 09/22/2016 NEGRITO THOMPSON MD E Ot Z87.8 91 PERSONAL HISTORY OF NICOTINE DEPENDENCE 09/22/2016 NEGRITO THOMPSON MD Ot Z95.1 PRESENCE OF AORTOCORONARY BYPASS GRAFT 09/22/2016 NEGRITO THOMPSON MD Ot Z95.2 PRESENCE OF PROSTHETIC HEART VALVE 09/22/2016 NEGRITO THOMPSON MD E Ot Z99.8 1 DEPENDENCE ON SUPPLEMENTAL OXYGEN 09/22/2016 NEGRITO THOMPSON MD Ot D64.9 ANEMIA, UNSPECIFIED 09/22/2016 NEGRITO THOMPSON MD E Ot D69.6 THROMBOCYTOPENIA, UNSPECIFIED 09/22/2016 NEGRITO THOMPSON MD E Ot E11.9 TYPE 2 DIABETES MELLITUS WITHOUT COMPLIC 09/22/2016 NEGRITO THOMPSON MD E Ot E87.6 HYPOKALEMIA 09/22/2016 NEGRITO THOMPSON MD E Ot I25.1 0 ATHSCL HEART DISEASE OF [place] CORONARY 09/22/2016 NEGRITO THOMPSON MD E Ot I48.9 1 UNSPECIFIED ATRIAL FIBRILLATION 09/22/2016 NEGRITO THOMPSON MD E Ot R06.8 9 OTHER ABNORMALITIES OF BREATHING 09/22/2016 NEGRITO THOMPSON MD E Ot Z48.8 12 ENCNTR FOR SURGICAL AFTCR FOLLOWING SURG 09/22/2016 NEGRITO THOMPSON MD Ot Z87.8 91 PERSONAL HISTORY OF NICOTINE DEPENDENCE 09/22/2016 NEGRITO THOMPSON MD Ot Z95.1 PRESENCE OF AORTOCORONARY BYPASS GRAFT 09/22/2016 NEGRITO THOMPSON MD Ot Z95.2 PRESENCE OF PROSTHETIC HEART VALVE 09/22/2016 NEGRITO THOMPSON MD Ot Z99.8 1 DEPENDENCE ON SUPPLEMENTAL OXYGEN 09/23/2016 NEGRITO THOMPSON MD Ot D64.9 ANEMIA, UNSPECIFIED 09/23/2016 NEGRITO THOMPSON MD E Ot D69.6 THROMBOCYTOPENIA, UNSPECIFIED 09/23/2016 NEGRITO THOMPSON MD E Ot E11.9 TYPE 2 DIABETES MELLITUS WITHOUT COMPLIC 09/23/2016 NEGRITO THOMPSON MD Ot E87.6 HYPOKALEMIA 09/23/2016 NEGRITO THOMPSON MD E Ot 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 0 ATHSCL HEART DISEASE OF [place] CORONARY 09/23/2016 NEGRITO THOMPSON MD E Ot I48.9 1 UNSPECIFIED ATRIAL FIBRILLATION 09/23/2016 NEGRITO THOMPSON MD E Ot R06.8 9 OTHER ABNORMALITIES OF BREATHING 09/23/2016 NEGRITO THOMPSON MD E Ot Z48.8 12 ENCNTR FOR SURGICAL AFTCR FOLLOWING SURG 09/23/2016 NEGRITO THOMPSON MD Ot Z87.8 91 PERSONAL HISTORY OF NICOTINE DEPENDENCE 09/23/2016 NEGRITO THOMPSON MD Ot Z95.1 PRESENCE OF AORTOCORONARY BYPASS GRAFT 09/23/2016 NEGRITO THOMPSON MD Ot Z95.2 PRESENCE OF PROSTHETIC HEART VALVE 09/23/2016 NEGRITO THOMPSON MD Ot Z99.8 1 DEPENDENCE ON SUPPLEMENTAL OXYGEN 09/24/2016 NEGRITO THOMPSON MD Ot D64.9 ANEMIA, UNSPECIFIED 09/24/2016 NEGRITO THOMPSON MD Ot D69.6 THROMBOCYTOPENIA, UNSPECIFIED 09/24/2016 NEGRITO THOMPSON MD E Ot E11.9 TYPE 2 DIABETES MELLITUS WITHOUT COMPLIC 09/24/2016 NEGRITO THOMPSON MD E Ot E87.6 HYPOKALEMIA 09/24/2016 NEGRITO THOMPSON MD E Ot I25.1 0 ATHSCL HEART DISEASE OF [place] CORONARY 09/24/2016 NEGRITO THOMPSON MD E Ot I48.9 1 UNSPECIFIED ATRIAL FIBRILLATION 09/24/2016 NEGRITO THOMPSON MD E Ot R06.8 9 OTHER ABNORMALITIES OF BREATHING 09/24/2016 NEGRITO THOMPSON MD Ot Z48.8 12 ENCNTR FOR SURGICAL AFTCR FOLLOWING SURG 09/24/2016 NEGRITO THOMPSON MD Ot Z87.8 91 PERSONAL HISTORY OF NICOTINE DEPENDENCE 09/24/2016 NEGRITO THOMPSON MD Ot Z95.1 PRESENCE OF AORTOCORONARY BYPASS GRAFT 09/24/2016 NEGRITO THOMPSON MD Ot Z95.2 PRESENCE OF PROSTHETIC HEART VALVE 09/24/2016 NEGRITO THOMPSON MD Ot Z99.8 1 DEPENDENCE ON SUPPLEMENTAL OXYGEN 09/24/2016 NEGRITO THOMPSON MD E Ot D64.9 ANEMIA, UNSPECIFIED 09/24/2016 NEGRITO THOMPSON MD E Ot D69.6 THROMBOCYTOPENIA, UNSPECIFIED 09/24/2016 NEGRITO THOMPSON MD E Ot E11.9 TYPE 2 DIABETES MELLITUS WITHOUT COMPLIC 09/24/2016 NEGRITO THOMPSON MD E Ot E87.6 HYPOKALEMIA 09/24/2016 NEGRITO THOMPSON MD E Ot 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 0 ATHSCL HEART DISEASE OF [place] CORONARY 09/24/2016 NEGRITO THOMPSON MD E Ot I48.9 1 UNSPECIFIED ATRIAL FIBRILLATION 09/24/2016 NEGRITO THOMPSON MD Ot R06.8 9 OTHER ABNORMALITIES OF BREATHING 09/24/2016 NEGRITO THOMPSON MD Ot Z48.8 12 ENCNTR FOR SURGICAL AFTCR FOLLOWING SURG 09/24/2016 NEGRITO THOMPSON MD Ot Z87.8 91 PERSONAL HISTORY OF NICOTINE DEPENDENCE 09/24/2016 NEGRITO THOMPSON MD Ot Z95.1 PRESENCE OF AORTOCORONARY BYPASS GRAFT 09/24/2016 NEGRITO THOMPSON MD Ot Z95.2 PRESENCE OF PROSTHETIC HEART VALVE 09/24/2016 NEGRITO THOMPSON MD Ot Z99.8 1 DEPENDENCE ON SUPPLEMENTAL OXYGEN 09/25/2016 NEGRITO THOMPSON MD Ot D64.9 ANEMIA, UNSPECIFIED 09/25/2016 NEGRITO THOMPSON MD Ot D69.6 THROMBOCYTOPENIA, UNSPECIFIED 09/25/2016 NEGRITO THOMPSON MD E Ot E11.9 TYPE 2 DIABETES MELLITUS WITHOUT COMPLIC 09/25/2016 NEGRITO THOMPSON MD E Ot E87.6 HYPOKALEMIA 09/25/2016 NEGRITO THOMPSON MD E Ot I25.1 0 ATHSCL HEART DISEASE OF [place] CORONARY 09/25/2016 NEGRITO THOMPSON MD E Ot I48.9 1 UNSPECIFIED ATRIAL FIBRILLATION 09/25/2016 NEGRITO THOMPSON MD E Ot R06.8 9 OTHER ABNORMALITIES OF BREATHING 09/25/2016 NEGRITO THOMPSON MD Ot Z48.8 12 ENCNTR FOR SURGICAL AFTCR FOLLOWING SURG 09/25/2016 NEGRITO THOMPSON MD E Ot Z87.8 91 PERSONAL HISTORY OF NICOTINE DEPENDENCE 09/25/2016 NEGRITO THOMPSON MD E Ot Z95.1 PRESENCE OF AORTOCORONARY BYPASS GRAFT 09/25/2016 NEGRITO THOMPSON MD E Ot Z95.2 PRESENCE OF PROSTHETIC HEART VALVE 09/25/2016 NEGRITO THOMPSON MD E Ot Z99.8 1 DEPENDENCE ON SUPPLEMENTAL OXYGEN 09/26/2016 NEGRITO THOMPSON MD E Ot D64.9 ANEMIA, UNSPECIFIED 09/26/2016 NEGRITO THOMPSON MD E Ot D69.6 THROMBOCYTOPENIA, UNSPECIFIED 09/26/2016 NEGRITO THOMPSON MD E Ot E11.9 TYPE 2 DIABETES MELLITUS WITHOUT COMPLIC 09/26/2016 NEGRITO THOMPSON MD E Ot E87.6 HYPOKALEMIA 09/26/2016 NEGRITO THOMPSON MD E Ot I25.1 0 ATHSCL HEART DISEASE OF [place] CORONARY 09/26/2016 NEGRITO THOMPSON MD E Ot I48.9 1 UNSPECIFIED ATRIAL FIBRILLATION 09/26/2016 NEGRITO THOMPSON MD E Ot R06.8 9 OTHER ABNORMALITIES OF BREATHING 09/26/2016 NEGRITO THOMPSON MD E Ot Z48.8 12 ENCNTR FOR SURGICAL AFTCR FOLLOWING SURG 09/26/2016 NEGRITO THOMPSON MD E Ot Z87.8 91 PERSONAL HISTORY OF NICOTINE DEPENDENCE 09/26/2016 NEGRITO THOMPSON MD E Ot Z95.1 PRESENCE OF AORTOCORONARY BYPASS GRAFT 09/26/2016 NEGRITO THOMPSON MD E Ot Z95.2 PRESENCE OF PROSTHETIC HEART VALVE 09/26/2016 NEGRITO THOMPSON MD E Ot Z99.8 1 DEPENDENCE ON SUPPLEMENTAL OXYGEN 09/27/2016 NEGRITO THOMPSON MD E Ot D64.9 ANEMIA, UNSPECIFIED 09/27/2016 NEGRITO THOMPSON MD E Ot D69.6 THROMBOCYTOPENIA, UNSPECIFIED 09/27/2016 NEGRITO THOMPSON MD E Ot E11.9 TYPE 2 DIABETES MELLITUS WITHOUT COMPLIC 09/27/2016 NEGRITO THOMPSON MD E Ot E87.6 HYPOKALEMIA 09/27/2016 NEGRITO THOMPSON MD E Ot I25.1 0 ATHSCL HEART DISEASE OF [place] CORONARY 09/27/2016 NEGRITO THOMPSON MD E Ot I48.9 1 UNSPECIFIED ATRIAL FIBRILLATION 09/27/2016 NEGRITO THOMPSON MD E Ot R06.8 9 OTHER ABNORMALITIES OF BREATHING 09/27/2016 NEGRITO THOMPSON MD E Ot Z48.8 12 ENCNTR FOR SURGICAL AFTCR FOLLOWING SURG 09/27/2016 NEGRITO THOMPSON MD E Ot Z87.8 91 PERSONAL HISTORY OF NICOTINE DEPENDENCE 09/27/2016 NEGRITO THOMPSON MD E Ot Z95.1 PRESENCE OF AORTOCORONARY BYPASS GRAFT 09/27/2016 NEGRITO THOMPSON MD E Ot Z95.2 PRESENCE OF PROSTHETIC HEART VALVE 09/27/2016 NEGRITO THOMPSON MD E Ot Z99.8 1 DEPENDENCE ON SUPPLEMENTAL OXYGEN 09/28/2016 NEGRITO THOMPSON MD E Ot D64.9 ANEMIA, UNSPECIFIED 09/28/2016 NEGRITO THOMPSON MD E Ot D69.6 THROMBOCYTOPENIA, UNSPECIFIED 09/28/2016 NEGRITO THOMPSON MD E Ot E11.9 TYPE 2 DIABETES MELLITUS WITHOUT COMPLIC 09/28/2016 ARMANDO THOMPSON MDIC E Ot E87.6 HYPOKALEMIA 09/28/2016 NEGRITO THOMPSON MD E Ot I25.1 0 ATHSCL HEART DISEASE OF [place] CORONARY 09/28/2016 NEGRITO THOMPSON MD E Ot I48.9 1 UNSPECIFIED ATRIAL FIBRILLATION 09/28/2016 ARMANDO THOMPSON MDIC E Ot R06.8 9 OTHER ABNORMALITIES OF BREATHING 09/28/2016 NEGRITO THOMPSON MD E Ot Z48.8 12 ENCNTR FOR SURGICAL AFTCR FOLLOWING SURG 09/28/2016 NEGRITO THOMPSON MD E Ot Z87.8 91 PERSONAL HISTORY OF NICOTINE DEPENDENCE 09/28/2016 NEGRITO THOMPSON MD E Ot Z95.1 PRESENCE OF AORTOCORONARY BYPASS GRAFT 09/28/2016 NEGRITO THOMPSON MD E Ot Z95.2 PRESENCE OF PROSTHETIC HEART VALVE 09/28/2016 NEGRITO THOMPSON MD E Ot Z99.8 1 DEPENDENCE ON SUPPLEMENTAL OXYGEN 09/30/2016 ARMANDO THOMPSON MDIC E Ot D64.9 ANEMIA, UNSPECIFIED 09/30/2016 ARMANDO THOMPSON MDIC E Ot D69.6 THROMBOCYTOPENIA, UNSPECIFIED 09/30/2016 ARMANDO THOMPSON MDIC E Ot E11.9 TYPE 2 DIABETES MELLITUS WITHOUT COMPLIC 09/30/2016 NEGRITO THOMPSON MD E Ot E87.6 HYPOKALEMIA 09/30/2016 NEGRITO THOMPSON MD E Ot I25.1 0 ATHSCL HEART DISEASE OF [place] CORONARY 09/30/2016 NEGRITO THOMPSON MD E Ot I48.9 1 UNSPECIFIED ATRIAL FIBRILLATION 09/30/2016 NEGRITO THOMPSON MD E Ot R06.8 9 OTHER ABNORMALITIES OF BREATHING 09/30/2016 NEGRITO THOMPSON MD E Ot Z48.8 12 ENCNTR FOR SURGICAL AFTCR FOLLOWING SURG 09/30/2016 NEGRITO THOMPSON MD E Ot Z87.8 91 PERSONAL HISTORY OF NICOTINE DEPENDENCE 09/30/2016 NEGRITO THOMPSON MD E Ot Z95.1 PRESENCE OF AORTOCORONARY BYPASS GRAFT 09/30/2016 NEGRITO THOMPSON MD E Ot Z95.2 PRESENCE OF PROSTHETIC HEART VALVE 09/30/2016 NEGRITO THOMPSON MD E Ot Z99.8 1 DEPENDENCE ON SUPPLEMENTAL OXYGEN 10/01/2016 NEGRITO THOMPSON MD E Ot D64.9 ANEMIA, UNSPECIFIED 10/01/2016 ARMANDO THOMPSON MDIC E Ot D69.6 THROMBOCYTOPENIA, UNSPECIFIED 10/01/2016 ARMANDO THOMPSON MDIC E Ot E11.9 TYPE 2 DIABETES MELLITUS WITHOUT COMPLIC 10/01/2016 NEGRITO THOMPSON MD E Ot E87.6 HYPOKALEMIA 10/01/2016 NEGRITO THOMPSON MD E Ot I25.1 0 ATHSCL HEART DISEASE OF [place] CORONARY 10/01/2016 NEGRITO THOMPSON MD E Ot I48.9 1 UNSPECIFIED ATRIAL FIBRILLATION 10/01/2016 NEGRITO THOMPSON MD E Ot R06.8 9 OTHER ABNORMALITIES OF BREATHING 10/01/2016 NEGRITO THOMPSON MD E Ot Z48.8 12 ENCNTR FOR SURGICAL AFTCR FOLLOWING SURG 10/01/2016 NEGRITO THOMPSON MD E Ot Z87.8 91 PERSONAL HISTORY OF NICOTINE DEPENDENCE 10/01/2016 NEGRITO THOMPSON MD E Ot Z95.1 PRESENCE OF AORTOCORONARY BYPASS GRAFT 10/01/2016 NEGRITO THOMPSON MD E Ot Z95.2 PRESENCE OF PROSTHETIC HEART VALVE 10/01/2016 NEGRITO THOMPSON MD E Ot Z99.8 1 DEPENDENCE ON SUPPLEMENTAL OXYGEN 10/02/2016 NEGRITO THOMPSON MD E Ot D64.9 ANEMIA, UNSPECIFIED 10/02/2016 NEGRITO THOMPSON MD E Ot D69.6 THROMBOCYTOPENIA, UNSPECIFIED 10/02/2016 NEGRITO THOMPSON MD Ot E11.9 TYPE 2 DIABETES MELLITUS WITHOUT COMPLIC 10/02/2016 NEGRITO THOMPSON MD Ot E87.6 HYPOKALEMIA 10/02/2016 NEGRITO THOMPSON MD Ot I25.1 0 ATHSCL HEART DISEASE OF [place] CORONARY 10/02/2016 NEGRITO THOMPSON MD Ot I48.9 1 UNSPECIFIED ATRIAL FIBRILLATION 10/02/2016 NEGRITO THOMPSON MD Ot R06.8 9 OTHER ABNORMALITIES OF BREATHING 10/02/2016 NEGRITO THOMPSON MD Ot Z48.8 12 ENCNTR FOR SURGICAL AFTCR FOLLOWING SURG 10/02/2016 NEGRITO THOMPSON MD Ot Z87.8 91 PERSONAL HISTORY OF NICOTINE DEPENDENCE 10/02/2016 NEGRITO THOMPSON MD E Ot Z95.1 PRESENCE OF AORTOCORONARY BYPASS GRAFT 10/02/2016 NEGRITO THOMPSON MD Ot Z95.2 PRESENCE OF PROSTHETIC HEART VALVE 10/02/2016 NEGRITO THOMPSON MD Ot Z99.8 1 DEPENDENCE ON SUPPLEMENTAL OXYGEN 10/03/2016 NEGRITO THOMPSON MD Ot D64.9 ANEMIA, UNSPECIFIED 10/03/2016 NEGRITO THOMPSON MD E Ot D69.6 THROMBOCYTOPENIA, UNSPECIFIED 10/03/2016 NEGRITO THOMPSON MD Ot E11.9 TYPE 2 DIABETES MELLITUS WITHOUT COMPLIC 10/03/2016 NEGRITO THOMPSON MD Ot E87.6 HYPOKALEMIA 10/03/2016 NEGRITO THOMPSON MD Ot I25.1 0 ATHSCL HEART DISEASE OF [place] CORONARY 10/03/2016 NEGRITO THOMPSON MD Ot I48.9 1 UNSPECIFIED ATRIAL FIBRILLATION 10/03/2016 NEGRITO THOMPSON MD Ot R06.8 9 OTHER ABNORMALITIES OF BREATHING 10/03/2016 NEGRITO THOMPSON MD Ot Z48.8 12 ENCNTR FOR SURGICAL AFTCR FOLLOWING SURG 10/03/2016 NEGRITO THOMPSON MD Ot Z87.8 91 PERSONAL HISTORY OF NICOTINE DEPENDENCE 10/03/2016 NEGRITO HTOMPSON MD E Ot Z95.1 PRESENCE OF AORTOCORONARY BYPASS GRAFT 10/03/2016 NEGRITO THOMPSON MD E Ot Z95.2 PRESENCE OF PROSTHETIC HEART VALVE 10/03/2016 NEGRITO THOMPSON MD Ot Z99.8 1 DEPENDENCE ON SUPPLEMENTAL OXYGEN 10/04/2016 THOMPSON MD, NEGRITO E Ot D64.9 ANEMIA, UNSPECIFIED 10/04/2016 NEGRITO THOMPSON MD E Ot D69.6 THROMBOCYTOPENIA, UNSPECIFIED 10/04/2016 NEGRITO TOHMPSON MD E Ot E11.9 TYPE 2 DIABETES MELLITUS WITHOUT COMPLIC 10/04/2016 NEGRITO THOMPSON MD E Ot E87.6 HYPOKALEMIA 10/04/2016 NEGRITO THOMPSON MD E Ot I25.1 0 ATHSCL HEART DISEASE OF [place] CORONARY 10/04/2016 NEGRITO THOMPSON MD E Ot I48.9 1 UNSPECIFIED ATRIAL FIBRILLATION 10/04/2016 NEGRITO THOMPSON MD E Ot R06.8 9 OTHER ABNORMALITIES OF BREATHING 10/04/2016 NEGRITO THOMPSON MD E Ot Z48.8 12 ENCNTR FOR SURGICAL AFTCR FOLLOWING SURG 10/04/2016 NEGRITO THOMPSON MD Ot Z87.8 91 PERSONAL HISTORY OF NICOTINE DEPENDENCE 10/04/2016 NEGRITO THOMPSON MD E Ot Z95.1 PRESENCE OF AORTOCORONARY BYPASS GRAFT 10/04/2016 NEGRITO THOMPSON MD Ot Z95.2 PRESENCE OF PROSTHETIC HEART VALVE 10/04/2016 NEGRITO THOMPSON MD E Ot Z99.8 1 DEPENDENCE ON SUPPLEMENTAL OXYGEN 10/04/2016 NEGRITO THOMPSON MD E Ot D50.0 IRON DEFICIENCY ANEMIA SECONDARY TO BLOO 10/04/2016 NEGRITO THOMPSON MD E Ot D63.8 ANEMIA IN OTHER CHRONIC DISEASES CLASSIF 10/04/2016 NEGRITO THOMPSON MD E Ot D64.9 ANEMIA, UNSPECIFIED 10/04/2016 NEGRITO THOMPSON MD E Ot D69.6 THROMBOCYTOPENIA, UNSPECIFIED 10/04/2016 NEGRITO THOMPSON MD E Ot E11.6 5 TYPE 2 DIABETES MELLITUS WITH HYPERGLYCE 10/04/2016 NEGRITO THOMPSON MD E Ot E11.9 TYPE 2 DIABETES MELLITUS WITHOUT COMPLIC 10/04/2016 NEGRITO THOMPSON MD E Ot E78.5 HYPERLIPIDEMIA, UNSPECIFIED 10/04/2016 NEGRITO THOMPSON MD E Ot E87.6 HYPOKALEMIA 10/04/2016 NEGRITO THOMPSON MD E Ot I10 ESSENTIAL (PRIMARY) HYPERTENSION 10/04/2016 NEGRITO THOMPSON MD E Ot I25.1 0 ATHSCL HEART DISEASE OF [place] CORONARY 10/04/2016 NEGRITO THOMPSON MD Ot I48.9 1 UNSPECIFIED ATRIAL FIBRILLATION 10/04/2016 NEGRITO THOMPSON MD Ot M06.9 RHEUMATOID ARTHRITIS, UNSPECIFIED 10/04/2016 NEGRITO THOMPSON MD Ot R06.8 9 OTHER ABNORMALITIES OF BREATHING 10/04/2016 NEGRITO THOMPSON MD Ot T81.9XXA UNSPECIFIED COMPLICATION OF PROCEDURE, I 10/04/2016 NEGRITO THOMPSON MD Ot Z48.8 12 ENCNTR FOR SURGICAL AFTCR FOLLOWING SURG 10/04/2016 NEGRITO THOMPSON MD Ot Z87.8 91 PERSONAL HISTORY OF NICOTINE DEPENDENCE 10/04/2016 NEGRITO THOMPSON MD Ot Z95.1 PRESENCE OF AORTOCORONARY BYPASS GRAFT 10/04/2016 NEGRITO THOMPSON MD Ot Z95.2 PRESENCE OF PROSTHETIC HEART VALVE 10/04/2016 NEGRITO THOMPSON MD Ot Z99.8 1 DEPENDENCE ON SUPPLEMENTAL OXYGEN 01/02/2017 ISREAL SMITH FACC, ALI FACP CCDS Ot E66.09 OTHER OBESITY DUE TO EXCESS CALORIES 01/02/2017 ISREAL SMITH FACC, ALI FACP CCDS Ot I25.10 ATHSCL HEART DISEASE OF [place] CORONARY 01/02/2017 ISREAL SMITH FACC, ALI FACP CCDS Ot I48.2 CHRONIC ATRIAL FIBRILLATION 01/02/2017 ISREAL SMITH FACC, ALI FACP CCDS Ot I73.9 PERIPHERAL VASCULAR DISEASE, UNSPECIFIED 01/02/2017 ISREAL SMITH FACC, ALI FACP CCDS Ot R06.02 SHORTNESS OF BREATH 01/02/2017 ISREAL SMITH FACC, ALI FACP CCDS Ot Z86.79 PERSONAL HISTORY OF OTHER DISEASES OF TH 01/02/2017 ISREAL SMITH FACC, ALI FACP CCDS Ot N18.3 CHRONIC KIDNEY DISEASE, STAGE 3 (MODERAT 01/02/2017 NORIS JANE DO Ot E66. 09 OTHER OBESITY DUE TO EXCESS CALORIES 01/02/2017 NORIS JANE DO Ot I50. 23 ACUTE ON CHRONIC SYSTOLIC (CONGESTIVE) H 01/02/2017 NORIS JANE DO Ot R06. 02 SHORTNESS OF BREATH 01/02/2017 JOSH SNEED ACTIVE DIRECTORY SYSTEMS ADMINISTRATOR Ot I25.10 ATHSCL HEART DISEASE OF [place] CORONARY 01/02/2017 JOSH SNEED ACTIVE DIRECTORY SYSTEMS ADMINISTRATOR Ot I34.0 NONRHEUMATIC MITRAL (VALVE) INSUFFICIENC 01/02/2017 JOSH SNEED ACTIVE DIRECTORY SYSTEMS ADMINISTRATOR Ot I35.0 NONRHEUMATIC AORTIC (VALVE) STENOSIS 01/02/2017 RUBÉNJOSH FLORES ACTIVE DIRECTORY SYSTEMS ADMINISTRATOR Ot I48.2 CHRONIC ATRIAL FIBRILLATION 01/02/2017 JOSH SNEED ACTIVE DIRECTORY SYSTEMS ADMINISTRATOR Ot 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 01/02/2017 RUBÉNJOSH FLORES ACTIVE DIRECTORY SYSTEMS ADMINISTRATOR Ot I70.213 ATHSCL [place] ARTERIES OF EXTRM W INTRMT 01/02/2017 PROSPER, ELIZABET ACTIVE DIRECTORY SYSTEMS ADMINISTRATOR Ot E11.9 TYPE 2 DIABETES MELLITUS WITHOUT COMPLIC 01/02/2017 PROSPER, ELIZABET ACTIVE DIRECTORY SYSTEMS ADMINISTRATOR Ot H90.3 SENSORINEURAL HEARING LOSS, BILATERAL 01/02/2017 PROSPER, ELIZABET ACTIVE DIRECTORY SYSTEMS ADMINISTRATOR Ot H93.13 TINNITUS, BILATERAL 01/02/2017 PROSPER, ELIZABET ACTIVE DIRECTORY SYSTEMS ADMINISTRATOR Ot I50.20 UNSPECIFIED SYSTOLIC (CONGESTIVE) HEART 01/02/2017 PROSPER, ELIZABET ACTIVE DIRECTORY SYSTEMS ADMINISTRATOR Ot I51.7 CARDIOMEGALY 01/02/2017 PROSPER, ELIZABET ACTIVE DIRECTORY SYSTEMS ADMINISTRATOR Ot J20.9 ACUTE BRONCHITIS, UNSPECIFIED 01/02/2017 PROSPER, ELIZABET ACTIVE DIRECTORY SYSTEMS ADMINISTRATOR Ot J45.909 UNSPECIFIED ASTHMA, UNCOMPLICATED 01/02/2017 PROSPER, ELIZABET ACTIVE DIRECTORY SYSTEMS ADMINISTRATOR Ot M81.0 AGE-RELATED OSTEOPOROSIS W/O CURRENT PAT 01/02/2017 PROSPER, ELIZABET ACTIVE DIRECTORY SYSTEMS ADMINISTRATOR Ot R91.8 OTHER NONSPECIFIC ABNORMAL FINDING OF [place] 01/02/2017 ISREAL SMITH FACC, MARCK FACP CCDS Ot E66.09 OTHER OBESITY DUE TO EXCESS CALORIES 01/02/2017 ISREAL SMITH FACC, ALI FACP CCDS Ot I25.10 ATHSCL HEART DISEASE OF [place] CORONARY 01/02/2017 ISREAL SMITH FACC, MARCK FACP CCDS Ot I48.2 CHRONIC ATRIAL FIBRILLATION 01/02/2017 ISREAL SMITH FACC, ALI FACP CCDS Ot I73.9 PERIPHERAL VASCULAR DISEASE, UNSPECIFIED 01/02/2017 ISREAL SMITH FACC, MARCK FACP CCDS Ot R06.02 SHORTNESS OF BREATH 01/02/2017 ISREAL SMITH FACC, ALI FACP CCDS Ot Z86.79 PERSONAL HISTORY OF OTHER DISEASES OF 01/02/2017 ISREAL SMITH FACC, ALI FACP CCDS Ot N18.3 CHRONIC KIDNEY DISEASE, STAGE 3 (MODERAT 01/02/2017 NORIS JANE DO Ot E66. 09 OTHER OBESITY DUE TO EXCESS CALORIES 01/02/2017 NORIS JANE DO Ot I50. 23 ACUTE ON CHRONIC SYSTOLIC (CONGESTIVE) H 01/02/2017 NORIS JANE DO Ot R06. 02 SHORTNESS OF BREATH 01/02/2017 JOSH SNEED ACTIVE DIRECTORY SYSTEMS ADMINISTRATOR Ot I25.10 ATHSCL HEART DISEASE OF [place] CORONARY 01/02/2017 JOSH SNEED ACTIVE DIRECTORY SYSTEMS ADMINISTRATOR Ot I34.0 NONRHEUMATIC MITRAL (VALVE) INSUFFICIENC 01/02/2017 JOSH SNEED ACTIVE DIRECTORY SYSTEMS ADMINISTRATOR Ot I35.0 NONRHEUMATIC AORTIC (VALVE) STENOSIS 01/02/2017 JOSH SNEED ACTIVE DIRECTORY SYSTEMS ADMINISTRATOR Ot I48.2 CHRONIC ATRIAL FIBRILLATION 01/02/2017 JOSH SNEED ACTIVE DIRECTORY SYSTEMS ADMINISTRATOR Ot 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 01/02/2017 JOSH SNEED ACTIVE DIRECTORY SYSTEMS ADMINISTRATOR Ot I70.213 ATHSCL [place] ARTERIES OF EXTRM W INTRMT 01/02/2017 PROSPER, ELIZABET ACTIVE DIRECTORY SYSTEMS ADMINISTRATOR Ot E11.9 TYPE 2 DIABETES MELLITUS WITHOUT COMPLIC 01/02/2017 ELIZABET CHENG ACTIVE DIRECTORY SYSTEMS ADMINISTRATOR Ot H90.3 SENSORINEURAL HEARING LOSS, BILATERAL 01/02/2017 PROSPERELIZABET ACTIVE DIRECTORY SYSTEMS ADMINISTRATOR Ot H93.13 TINNITUS, BILATERAL 01/02/2017 PROSPER ELIZABET ACTIVE DIRECTORY SYSTEMS ADMINISTRATOR Ot I50.20 UNSPECIFIED SYSTOLIC (CONGESTIVE) HEART 01/02/2017 ELIZABET CHENG ACTIVE DIRECTORY SYSTEMS ADMINISTRATOR Ot I51.7 CARDIOMEGALY 01/02/2017 ELIZABET CHENG ACTIVE DIRECTORY SYSTEMS ADMINISTRATOR Ot J20.9 ACUTE BRONCHITIS, UNSPECIFIED 01/02/2017 ELIZABET CHENG ACTIVE DIRECTORY SYSTEMS ADMINISTRATOR Ot J45.909 UNSPECIFIED ASTHMA, UNCOMPLICATED 01/02/2017 ELIZABET CHENG ACTIVE DIRECTORY SYSTEMS ADMINISTRATOR Ot M81.0 AGE-RELATED OSTEOPOROSIS W/O CURRENT PAT 01/02/2017 ELIZABET CHENG ACTIVE DIRECTORY SYSTEMS ADMINISTRATOR Ot R91.8 OTHER NONSPECIFIC ABNORMAL FINDING OF [place] 01/03/2017 BECK ESTEVES MD Ot E78.00 PURE HYPERCHOLESTEROLEMIA, UNSPECIFIED 01/03/2017 BECK ESTEVES MD Ot F32 .9 MAJOR DEPRESSIVE DISORDER, SINGLE EPISOD 01/03/2017 BECK ESTEVES MD Ot I10 ESSENTIAL (PRIMARY) HYPERTENSION 01/03/2017 BECK ESTEVES MD Ot I25.10 ATHSCL HEART DISEASE OF [place] CORONARY 01/03/2017 BECK ESTEVES MD Ot I48.91 UNSPECIFIED ATRIAL FIBRILLATION 01/03/2017 BECK ESTEVES MD Ot J44 .9 CHRONIC OBSTRUCTIVE PULMONARY DISEASE, U 01/03/2017 BECK ESTEVES MD Ot J45.909 UNSPECIFIED ASTHMA, UNCOMPLICATED 01/03/2017 BECK ESTEVES MD Ot K21 .9 GASTRO-ESOPHAGEAL REFLUX DISEASE WITHOUT 01/03/2017 BECK ESTEVES MD Ot K59.09 OTHER CONSTIPATION 01/03/2017 BECK ESTEVES MD Ot N34 .0 URETHRAL ABSCESS 01/03/2017 BECK ESTEVES MD Ot N49 .2 INFLAMMATORY DISORDERS OF SCROTUM 01/03/2017 BECK ESTEVES MD Ot Z95 .1 PRESENCE OF AORTOCORONARY BYPASS GRAFT 01/03/2017 BECK ESTEVES MD Ot 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 01/04/2017 BECK ESTEVES MD Ot E78.00 PURE HYPERCHOLESTEROLEMIA, UNSPECIFIED 01/04/2017 BECK ESTEVES MD Ot F32 .9 MAJOR DEPRESSIVE DISORDER, SINGLE EPISOD 01/04/2017 BECK ESTEVES MD Ot I10 ESSENTIAL (PRIMARY) HYPERTENSION 01/04/2017 BECK ESTEVES MD Ot I25.10 ATHSCL HEART DISEASE OF [place] CORONARY 01/04/2017 BECK ESTEVES MD Ot I48.91 UNSPECIFIED ATRIAL FIBRILLATION 01/04/2017 BECK ESTEVES MD Ot J44 .9 CHRONIC OBSTRUCTIVE PULMONARY DISEASE, U 01/04/2017 BECK ESTEVES MD Ot J45.909 UNSPECIFIED ASTHMA, UNCOMPLICATED 01/04/2017 BECK ESTEVES MD Ot K21 .9 GASTRO-ESOPHAGEAL REFLUX DISEASE WITHOUT 01/04/2017 BECK ESTEVES MD Ot K59.09 OTHER CONSTIPATION 01/04/2017 BECK ESTEVES MD Ot N34 .0 URETHRAL ABSCESS 01/04/2017 BECK ESTEVES MD Ot N49 .2 INFLAMMATORY DISORDERS OF SCROTUM 01/04/2017 BECK ESTEVES MD Ot Z95 .1 PRESENCE OF AORTOCORONARY BYPASS GRAFT 01/04/2017 BECK ESTEVES MD Ot 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 01/04/2017 BECK ESTEVES MD Ot E78.00 PURE HYPERCHOLESTEROLEMIA, UNSPECIFIED 01/04/2017 BECK ESTEVES MD Ot F32 .9 MAJOR DEPRESSIVE DISORDER, SINGLE EPISOD 01/04/2017 BECK ESTEVES MD Ot I10 ESSENTIAL (PRIMARY) HYPERTENSION 01/04/2017 BECK ESTEVES MD Ot I25.10 ATHSCL HEART DISEASE OF [place] CORONARY 01/04/2017 BECK ESTEVES MD Ot I48.91 UNSPECIFIED ATRIAL FIBRILLATION 01/04/2017 BECK ESTEVES MD Ot J44 .9 CHRONIC OBSTRUCTIVE PULMONARY DISEASE, U 01/04/2017 BECK ESTEVES MD Ot J45.909 UNSPECIFIED ASTHMA, UNCOMPLICATED 01/04/2017 BECK ESTEVES MD Ot K21 .9 GASTRO-ESOPHAGEAL REFLUX DISEASE WITHOUT 01/04/2017 BECK ESTEVES MD Ot K59.09 OTHER CONSTIPATION 01/04/2017 BECK ESTEVES MD Ot N34 .0 URETHRAL ABSCESS 01/04/2017 BECK ESTEVES MD Ot N49 .2 INFLAMMATORY DISORDERS OF SCROTUM 01/04/2017 BECK ESTEVES MD Ot Z95 .1 PRESENCE OF AORTOCORONARY BYPASS GRAFT 01/04/2017 BECK ESTEVES MD Ot 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 01/05/2017 BECK ESTEVES MD Ot E78.00 PURE HYPERCHOLESTEROLEMIA, UNSPECIFIED 01/05/2017 BECK ESTEVES MD Ot F32 .9 MAJOR DEPRESSIVE DISORDER, SINGLE EPISOD 01/05/2017 BECK ESTEVES MD Ot I10 ESSENTIAL (PRIMARY) HYPERTENSION 01/05/2017 BECK ESTEVES MD Ot I25.10 ATHSCL HEART DISEASE OF [place] CORONARY 01/05/2017 BECK ESTEVES MD Ot I48.91 UNSPECIFIED ATRIAL FIBRILLATION 01/05/2017 BECK ESTEVES MD Ot J44 .9 CHRONIC OBSTRUCTIVE PULMONARY DISEASE, U 01/05/2017 BECK ESTEVES MD Ot J45.909 UNSPECIFIED ASTHMA, UNCOMPLICATED 01/05/2017 BECK ESTEVES MD Ot K21 .9 GASTRO-ESOPHAGEAL REFLUX DISEASE WITHOUT 01/05/2017 BECK ESTEVES MD Ot K59.09 OTHER CONSTIPATION 01/05/2017 BECK ESTEVES MD Ot N34 .0 URETHRAL ABSCESS 01/05/2017 BECK ESTEVES MD Ot N49 .2 INFLAMMATORY DISORDERS OF SCROTUM 01/05/2017 BECK ESTEVES MD Ot Z95 .1 PRESENCE OF AORTOCORONARY BYPASS GRAFT 01/05/2017 BECK ESTEVES MD Ot 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 01/05/2017 BECK ESTEVES MD Ot E66 .9 OBESITY, UNSPECIFIED 01/05/2017 BECK ESTEVES MD Ot E78.00 PURE HYPERCHOLESTEROLEMIA, UNSPECIFIED 01/05/2017 BECK ESTEVES MD Ot F32 .9 MAJOR DEPRESSIVE DISORDER, SINGLE EPISOD 01/05/2017 BECK ESTEVES MD Ot I10 ESSENTIAL (PRIMARY) HYPERTENSION 01/05/2017 BECK ESTEVES MD Ot I12 .9 HYPERTENSIVE CHRONIC KIDNEY DISEASE W ST 01/05/2017 BECK ESTEVES MD Ot I25.10 ATHSCL HEART DISEASE OF [place] CORONARY 01/05/2017 BECK ESTEVES MD Ot I48 .2 CHRONIC ATRIAL FIBRILLATION 01/05/2017 BCEK ESTEVES MD Ot I48.91 UNSPECIFIED ATRIAL FIBRILLATION 01/05/2017 BECK ESTEVES MD Ot I73 .9 PERIPHERAL VASCULAR DISEASE, UNSPECIFIED 01/05/2017 BECK ESTEVES MD Ot J44 .9 CHRONIC OBSTRUCTIVE PULMONARY DISEASE, U 01/05/2017 BECK ESTEVES MD Ot J45.909 UNSPECIFIED ASTHMA, UNCOMPLICATED 01/05/2017 BECK ESTEVES MD Ot K21 .9 GASTRO-ESOPHAGEAL REFLUX DISEASE WITHOUT 01/05/2017 BECK ESTEVES MD Ot K59.09 OTHER CONSTIPATION 01/05/2017 BECK ESTEVES MD Ot N18 .2 CHRONIC KIDNEY DISEASE, STAGE 2 (MILD) 01/05/2017 BECK ESTEVES MD Ot N34 .0 URETHRAL ABSCESS 01/05/2017 BECK ESTEVES MD Ot N40 .0 BENIGN PROSTATIC HYPERPLASIA WITHOUT LOW 01/05/2017 BECK ESTEVES MD Ot N49 .2 INFLAMMATORY DISORDERS OF SCROTUM 01/05/2017 BECK ESTEVES MD Ot R53.81 OTHER MALAISE 01/05/2017 BECK ESTEVES MD Ot R73.03 PREDIABETES 01/05/2017 BECK ESTEVES MD Ot Z68.37 BODY MASS INDEX (BMI) 37.0-37.9, ADULT 01/05/2017 BECK ESTEVES MD Ot Z85.528 PERSONAL HISTORY OF OTHER MALIGNANT NEOP 01/05/2017 BECK ESTEVES MD Ot Z87.891 PERSONAL HISTORY OF NICOTINE DEPENDENCE 01/05/2017 BECK ESTEVES MD Ot Z90 .5 ACQUIRED ABSENCE OF KIDNEY 01/05/2017 BECK ESTEVES MD Ot Z95 .1 PRESENCE OF AORTOCORONARY BYPASS GRAFT 01/05/2017 BECK ESTEVES MD Ot 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 01/18/2017 ISREAL SMITH FACC, ALI FACP CCDS Ot E66.09 OTHER OBESITY DUE TO EXCESS CALORIES 01/18/2017 ISREAL SMITH FACC, ALI FACP CCDS Ot I25.10 ATHSCL HEART DISEASE OF [place] CORONARY 01/18/2017 ISREAL SMITH FACC, ALI FACP CCDS Ot I48.2 CHRONIC ATRIAL FIBRILLATION 01/18/2017 ISREAL SMITH FACC, ALI FACP CCDS Ot I73.9 PERIPHERAL VASCULAR DISEASE, UNSPECIFIED 01/18/2017 ISREAL SMITH FACC, ALI FACP CCDS Ot R06.02 SHORTNESS OF BREATH 01/18/2017 ISREAL SMITH FACC, ALI FACP CCDS Ot Z86.79 PERSONAL HISTORY OF OTHER DISEASES OF TH 01/18/2017 ISREAL SMITH FACC, ALI FACP CCDS Ot N18.3 CHRONIC KIDNEY DISEASE, STAGE 3 (MODERAT 01/18/2017 NORIS JANE DO Ot E66. 09 OTHER OBESITY DUE TO EXCESS CALORIES 01/18/2017 NORIS JANE DO Ot I50. 23 ACUTE ON CHRONIC SYSTOLIC (CONGESTIVE) H 01/18/2017 NORIS JANE DO Ot R06. 02 SHORTNESS OF BREATH 01/18/2017 JOSH SNEED ACTIVE DIRECTORY SYSTEMS ADMINISTRATOR Ot I25.10 ATHSCL HEART DISEASE OF [place] CORONARY 01/18/2017 JOSH SNEED ACTIVE DIRECTORY SYSTEMS ADMINISTRATOR Ot I34.0 NONRHEUMATIC MITRAL (VALVE) INSUFFICIENC 01/18/2017 JOSH SNEED ACTIVE DIRECTORY SYSTEMS ADMINISTRATOR Ot I35.0 NONRHEUMATIC AORTIC (VALVE) STENOSIS 01/18/2017 JOSH SNEED ACTIVE DIRECTORY SYSTEMS ADMINISTRATOR Ot I48.2 CHRONIC ATRIAL FIBRILLATION 01/18/2017 JOSH SNEED ACTIVE DIRECTORY SYSTEMS ADMINISTRATOR Ot 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 01/18/2017 JOSH SNEED Mohini MCCAIN Ot I70.213 ATHSCL [place] ARTERIES OF EXTRM W INTRMT 01/18/2017 ELIZABET CHENG Ot E11.9 TYPE 2 DIABETES MELLITUS WITHOUT COMPLIC 01/18/2017 ELIZABET CHENG Ot H90.3 SENSORINEURAL HEARING LOSS, BILATERAL 01/18/2017 ELIZABET CHENG Ot H93.13 TINNITUS, BILATERAL 01/18/2017 ELIZABET CHENG Ot I50.20 UNSPECIFIED SYSTOLIC (CONGESTIVE) HEART 01/18/2017 ELIZABET CHENG Ot I51.7 CARDIOMEGALY 01/18/2017 ELIZABET CHENG Ot J20.9 ACUTE BRONCHITIS, UNSPECIFIED 01/18/2017 ELIZABET CHENG Ot J45.909 UNSPECIFIED ASTHMA, UNCOMPLICATED 01/18/2017 ELIZABET CHENG Ot M81.0 AGE-RELATED OSTEOPOROSIS W/O CURRENT PAT 01/18/2017 ELIZABET CHENG Ot R91.8 OTHER NONSPECIFIC ABNORMAL FINDING OF [place] 01/19/2017 MERCY SMITH, GARRETT Ot R07. 2 PRECORDIAL PAIN 01/19/2017 MERCY SMITH, GARRETT Ot Z01.810 ENCOUNTER FOR PREPROCEDURAL CARDIOVASCUL 01/19/2017 GARRETT MADRID MD Ot Z01.811 ENCOUNTER FOR PREPROCEDURAL RESPIRATORY 01/19/2017 GARRETT MADRID MD Ot Z01.812 ENCOUNTER FOR PREPROCEDURAL LABORATORY E 06/02/2017 CJ GASTON Ot E78.00 PURE HYPERCHOLESTEROLEMIA, UNSPECIFIED 06/02/2017 CJ GASTON Ot F32.9 MAJOR DEPRESSIVE DISORDER, SINGLE EPISOD 06/02/2017 CJ GASTON Ot I 10 ESSENTIAL (PRIMARY) HYPERTENSION 06/02/2017 CJ GASTON Ot I25.10 ATHSCL HEART DISEASE OF [place] CORONARY 06/02/2017 CJ GASTON Ot I48.91 UNSPECIFIED ATRIAL FIBRILLATION 06/02/2017 CJ GASTON Ot J44.9 CHRONIC OBSTRUCTIVE PULMONARY DISEASE, U 06/02/2017 CJ GASTON Ot K21.9 GASTRO-ESOPHAGEAL REFLUX DISEASE WITHOUT 06/02/2017 CJ GASTON Ot M54.5 LOW BACK PAIN 06/02/2017 CJ GASTON Ot Z79.52 HALFWAY (CURRENT) USE OF SYSTEMIC STER 06/02/2017 CJ GASTON Ot 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 06/02/2017 CJ GASTON Ot Z85.528 PERSONAL HISTORY OF OTHER MALIGNANT NEOP 06/02/2017 CJ GASTON Ot Z87.01 PERSONAL HISTORY OF PNEUMONIA (RECURRENT 06/02/2017 CJ GASTON Ot Z87.891 PERSONAL HISTORY OF NICOTINE DEPENDENCE 06/02/2017 CJ GASTON Ot Z88.0 ALLERGY STATUS TO PENICILLIN 06/02/2017 CJ GASTON Ot Z88.1 ALLERGY STATUS TO OTHER ANTIBIOTIC AGENT 06/02/2017 CJ GASTON Ot Z88.8 ALLERGY STATUS TO OTH DRUG/MEDS/BIOL SUB 06/02/2017 CJ GASTON Ot Z90.5 ACQUIRED ABSENCE OF KIDNEY 06/02/2017 CJ GASTON Ot Z90.89 ACQUIRED ABSENCE OF OTHER ORGANS 06/02/2017 CJ GASTON Ot Z95.4 PRESENCE OF OTHER HEART-VALVE REPLACEMEN 06/02/2017 CJ GASTON Ot Z95.5 PRESENCE OF CORONARY ANGIOPLASTY IMPLANT 06/02/2017 ISREAL SMITH FACC, MARCK FACP CCDS Ot E66.09 OTHER OBESITY DUE TO EXCESS CALORIES 06/02/2017 MARCK BACH MD, FACC FACP CCDS Ot I25.10 ATHSCL HEART DISEASE OF [place] CORONARY 06/02/2017 MARCK BACH MD, FACC FACP CCDS Ot I48.2 CHRONIC ATRIAL FIBRILLATION 06/02/2017 MARCK BACH MD, FACC FACP CCDS Ot I73.9 PERIPHERAL VASCULAR DISEASE, UNSPECIFIED 06/02/2017 MARCK BACH MD, FACC FACP CCDS Ot R06.02 SHORTNESS OF BREATH 06/02/2017 ISREAL SMITH FACC, MARCK FACP CCDS Ot Z86.79 PERSONAL HISTORY OF OTHER DISEASES OF TH 06/02/2017 MARCK BACH MD, FACC FACP CCDS Ot N18.3 CHRONIC KIDNEY DISEASE, STAGE 3 (MODERAT 06/02/2017 NORIS JANE DO Ot E66. 09 OTHER OBESITY DUE TO EXCESS CALORIES 06/02/2017 LUCINDA NORIS Quevedo Ot I50. 23 ACUTE ON CHRONIC SYSTOLIC (CONGESTIVE) H 06/02/2017 LUCINDA OZUNA NORIS Quevedo Ot R06. 02 SHORTNESS OF BREATH 06/02/2017 RUBÉNSANDRA JOSH Mohini ACTIVE DIRECTORY SYSTEMS ADMINISTRATOR Ot I25.10 ATHSCL HEART DISEASE OF [place] CORONARY 06/02/2017 JOSH SNEED ACTIVE DIRECTORY SYSTEMS ADMINISTRATOR Ot I34.0 NONRHEUMATIC MITRAL (VALVE) INSUFFICIENC 06/02/2017 NAREN JOSH L ACTIVE DIRECTORY SYSTEMS ADMINISTRATOR Ot I35.0 NONRHEUMATIC AORTIC (VALVE) STENOSIS 06/02/2017 NAREN JOSH L ACTIVE DIRECTORY SYSTEMS ADMINISTRATOR Ot I48.2 CHRONIC ATRIAL FIBRILLATION 06/02/2017 NAREN JOSH L ACTIVE DIRECTORY SYSTEMS ADMINISTRATOR Ot 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 06/02/2017 NAREN JOSH L ACTIVE DIRECTORY SYSTEMS ADMINISTRATOR Ot I70.213 ATHSCL [place] ARTERIES OF EXTRM W INTRMT 06/02/2017 PROSPER, ELIZABET ACTIVE DIRECTORY SYSTEMS ADMINISTRATOR Ot E11.9 TYPE 2 DIABETES MELLITUS WITHOUT COMPLIC 06/02/2017 PROSPER ELIZABET ACTIVE DIRECTORY SYSTEMS ADMINISTRATOR Ot H90.3 SENSORINEURAL HEARING LOSS, BILATERAL 06/02/2017 PROSPER, ELIZABET ACTIVE DIRECTORY SYSTEMS ADMINISTRATOR Ot H93.13 TINNITUS, BILATERAL 06/02/2017 PROSPER ELIZABET ACTIVE DIRECTORY SYSTEMS ADMINISTRATOR Ot I50.20 UNSPECIFIED SYSTOLIC (CONGESTIVE) HEART 06/02/2017 PROSPER, ELIZABET ACTIVE DIRECTORY SYSTEMS ADMINISTRATOR Ot I51.7 CARDIOMEGALY 06/02/2017 PROSPER ELIZABET ACTIVE DIRECTORY SYSTEMS ADMINISTRATOR Ot J20.9 ACUTE BRONCHITIS, UNSPECIFIED 06/02/2017 PROSPER, ELIZABET ACTIVE DIRECTORY SYSTEMS ADMINISTRATOR Ot J45.909 UNSPECIFIED ASTHMA, UNCOMPLICATED 06/02/2017 PROSPER, ELIZABET ACTIVE DIRECTORY SYSTEMS ADMINISTRATOR Ot M81.0 AGE-RELATED OSTEOPOROSIS W/O CURRENT PAT 06/02/2017 PROSPER ELIZABET ACTIVE DIRECTORY SYSTEMS ADMINISTRATOR Ot R91.8 OTHER NONSPECIFIC ABNORMAL FINDING OF [place] 06/02/2017 GARRETT MADRID MD Ot R07. 2 PRECORDIAL PAIN 06/02/2017 GARRETT MADRID MD Ot Z01.810 ENCOUNTER FOR PREPROCEDURAL CARDIOVASCUL 06/02/2017 GARRETT MADRID MD Ot Z01.811 ENCOUNTER FOR PREPROCEDURAL RESPIRATORY 06/02/2017 GARRETT MADRID MD Ot Z01.812 ENCOUNTER FOR PREPROCEDURAL LABORATORY E 06/03/2017 ISREAL SMITH FACC, ALI FACP CCDS Ot E66.9 OBESITY, UNSPECIFIED 06/03/2017 ISREAL SMITH FACC, ALI FACP CCDS Ot I25.10 ATHSCL HEART DISEASE OF [place] CORONARY 06/03/2017 ISREAL SMITH FACC, ALI FACP CCDS Ot I48.2 CHRONIC ATRIAL FIBRILLATION 06/03/2017 ISREAL SMITH FACC, ALI FACP CCDS Ot I73.9 PERIPHERAL VASCULAR DISEASE, UNSPECIFIED 06/03/2017 ISREAL SMITH FACC, ALI FACP CCDS Ot Z86.79 PERSONAL HISTORY OF OTHER DISEASES OF TH 06/03/2017 ISREAL SMITH FACC, ALI FACP CCDS Ot E66.9 OBESITY, UNSPECIFIED 06/03/2017 ISREAL SMITH FACSavannah, ALI FACP CCDS Ot I25.10 ATHSCL HEART DISEASE OF [place] CORONARY 06/03/2017 ISREAL SMITH FACSavannah, ALI FACP CCDS Ot I48.2 CHRONIC ATRIAL FIBRILLATION 06/03/2017 ISREAL SMITH FACC, ALI FACP CCDS Ot I73.9 PERIPHERAL VASCULAR DISEASE, UNSPECIFIED 06/03/2017 ISREAL SMITH FACC, ALI FACP CCDS Ot R06.02 SHORTNESS OF BREATH 06/03/2017 ISREAL SMITH FACC, ALI FACP CCDS Ot Z86.79 PERSONAL HISTORY OF OTHER DISEASES OF 06/05/2017 CJ GASTON Ot E78.00 PURE HYPERCHOLESTEROLEMIA, UNSPECIFIED 06/05/2017 CJ GASTON Ot F32.9 MAJOR DEPRESSIVE DISORDER, SINGLE EPISOD 06/05/2017 CJ GASTON Ot I 10 ESSENTIAL (PRIMARY) HYPERTENSION 06/05/2017 CJ GASTON Ot I25.10 ATHSCL HEART DISEASE OF [place] CORONARY 06/05/2017 CJ GASTON Ot I48.91 UNSPECIFIED ATRIAL FIBRILLATION 06/05/2017 CJ GASTON Ot J44.9 CHRONIC OBSTRUCTIVE PULMONARY DISEASE, U 06/05/2017 CJ GASTON Ot K21.9 GASTRO-ESOPHAGEAL REFLUX DISEASE WITHOUT 06/05/2017 CJ GASTON Ot M54.5 LOW BACK PAIN 06/05/2017 CJ GASTON Ot 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.52 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 STER 06/05/2017 CJ GASTON Ot Z79.82 HALFWAY (CURRENT) USE OF ASPIRIN 06/05/2017 CJ GASTON Ot Z85.528 PERSONAL HISTORY OF OTHER MALIGNANT NEOP 06/05/2017 CJ GASTON Ot Z87.01 PERSONAL HISTORY OF PNEUMONIA (RECURRENT 06/05/2017 CJ GASTON Ot Z87.891 PERSONAL HISTORY OF NICOTINE DEPENDENCE 06/05/2017 CJ GASTON Ot Z88.0 ALLERGY STATUS TO PENICILLIN 06/05/2017 CJ GASTON Ot Z88.1 ALLERGY STATUS TO OTHER ANTIBIOTIC AGENT 06/05/2017 CJ GASTON Ot Z88.8 ALLERGY STATUS TO OTH DRUG/MEDS/BIOL SUB 06/05/2017 CJ GASTON Ot Z90.5 ACQUIRED ABSENCE OF KIDNEY 06/05/2017 CJ GASTON Ot Z90.89 ACQUIRED ABSENCE OF OTHER ORGANS 06/05/2017 CJ GASTON Ot Z95.4 PRESENCE OF OTHER HEART-VALVE REPLACEMEN 06/05/2017 CJ GASTON Ot Z95.5 PRESENCE OF CORONARY ANGIOPLASTY IMPLANT 06/13/2017 ISREAL SMITH FACC, MARCK FACP CCDS Ot E66.9 OBESITY, UNSPECIFIED 06/13/2017 ISREAL SMITH FACC, MARCK FACP CCDS Ot I25.10 ATHSCL HEART DISEASE OF [place] CORONARY 06/13/2017 MARCK BACH MD, FACC FACP CCDS Ot I48.2 CHRONIC ATRIAL FIBRILLATION 06/13/2017 MARCK BACH MD, FACC FACP CCDS Ot I73.9 PERIPHERAL VASCULAR DISEASE, UNSPECIFIED 06/13/2017 MARCK BACH MD, FACC FACP CCDS Ot Z86.79 PERSONAL HISTORY OF OTHER DISEASES OF TH 06/13/2017 MARCK BACH MD, FACC FACP CCDS Ot E66.9 OBESITY, UNSPECIFIED 06/13/2017 ISREAL SMITH FACC, MARCK FACP CCDS Ot I25.10 ATHSCL HEART DISEASE OF [place] CORONARY 06/13/2017 MARCK BACH MD, FACC FACP CCDS Ot I48.2 CHRONIC ATRIAL FIBRILLATION 06/13/2017 ISREAL SMITH FACC, MARCK FACP CCDS Ot I73.9 PERIPHERAL VASCULAR DISEASE, UNSPECIFIED 06/13/2017 ISREAL CHASEC, ALI FACP CCDS Ot R06.02 SHORTNESS OF BREATH 06/13/2017 ISREAL SMITH FACC, ALI FACP CCDS Ot Z86.79 PERSONAL HISTORY OF OTHER DISEASES OF 06/13/2017 ISREAL SMITH FACC, ALI FACP CCDS Ot E66.09 OTHER OBESITY DUE TO EXCESS CALORIES 06/13/2017 ISREAL SMITH FACC, ALI FACP CCDS Ot I25.10 ATHSCL HEART DISEASE OF [place] CORONARY 06/13/2017 ISREAL SMITH FACC, ALI FACP CCDS Ot I48.2 CHRONIC ATRIAL FIBRILLATION 06/13/2017 ISREAL SMITH FACC, ALI FACP CCDS Ot I73.9 PERIPHERAL VASCULAR DISEASE, UNSPECIFIED 06/13/2017 ISREAL SMITH FACC, ALI FACP CCDS Ot R06.02 SHORTNESS OF BREATH 06/13/2017 ISREAL SMITH FACC, ALI FACP CCDS Ot Z86.79 PERSONAL HISTORY OF OTHER DISEASES OF 06/13/2017 ISREAL SMITH FACC, ALI FACP CCDS Ot 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 PULMONARY HYPERTENSION 06/13/2017 ISREAL SMITH FACC, ALI FACP CCDS Ot I34.0 NONRHEUMATIC MITRAL (VALVE) INSUFFICIENC 06/13/2017 ISREAL SMITH FACC, ALI FACP CCDS Ot I35.0 NONRHEUMATIC AORTIC (VALVE) STENOSIS 06/13/2017 ISREAL SMITH FACC, ALI FACP CCDS Ot I48.2 CHRONIC ATRIAL FIBRILLATION 06/13/2017 ISREAL CHASEC, ALI FACP CCDS Ot I50.23 ACUTE ON CHRONIC SYSTOLIC (CONGESTIVE) H 06/13/2017 ISREAL CHASEC, ALI FACP CCDS Ot R06.02 SHORTNESS OF BREATH 06/13/2017 ISREAL SMITH FACC, ALI FACP CCDS Ot N18.3 CHRONIC KIDNEY DISEASE, STAGE 3 (MODERAT 06/13/2017 NORIS JANE DO Ot E66. 09 OTHER OBESITY DUE TO EXCESS CALORIES 06/13/2017 NORIS JANE DO Ot I50. 23 ACUTE ON CHRONIC SYSTOLIC (CONGESTIVE) H 06/13/2017 NORIS JANE DO Ot R06. 02 SHORTNESS OF BREATH 06/13/2017 JOSH SNEED Ot I25.10 ATHSCL HEART DISEASE OF [place] CORONARY 06/13/2017 JOSH SNEED ACTIVE DIRECTORY SYSTEMS ADMINISTRATOR Ot I34.0 NONRHEUMATIC MITRAL (VALVE) INSUFFICIENC 06/13/2017 JOSH SNEED ACTIVE DIRECTORY SYSTEMS ADMINISTRATOR Ot I35.0 NONRHEUMATIC AORTIC (VALVE) STENOSIS 06/13/2017 JOSH SNEED ACTIVE DIRECTORY SYSTEMS ADMINISTRATOR Ot I48.2 CHRONIC ATRIAL FIBRILLATION 06/13/2017 JOSH SNEED ACTIVE DIRECTORY SYSTEMS ADMINISTRATOR Ot 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 06/13/2017 JOSH SNEED ACTIVE DIRECTORY SYSTEMS ADMINISTRATOR Ot I70.213 ATHSCL [place] ARTERIES OF EXTRM W INTRMT 06/13/2017 PROSPERELIZABET ACTIVE DIRECTORY SYSTEMS ADMINISTRATOR Ot E11.9 TYPE 2 DIABETES MELLITUS WITHOUT COMPLIC 06/13/2017 PROSPERELIZABET ACTIVE DIRECTORY SYSTEMS ADMINISTRATOR Ot H90.3 SENSORINEURAL HEARING LOSS, BILATERAL 06/13/2017 PROSPERELIZABET ACTIVE DIRECTORY SYSTEMS ADMINISTRATOR Ot H93.13 TINNITUS, BILATERAL 06/13/2017 PROSPER ELIZABET ACTIVE DIRECTORY SYSTEMS ADMINISTRATOR Ot I50.20 UNSPECIFIED SYSTOLIC (CONGESTIVE) HEART 06/13/2017 PROSPERELIZABET ACTIVE DIRECTORY SYSTEMS ADMINISTRATOR Ot I51.7 CARDIOMEGALY 06/13/2017 PROSPERELIZABET ACTIVE DIRECTORY SYSTEMS ADMINISTRATOR Ot J20.9 ACUTE BRONCHITIS, UNSPECIFIED 06/13/2017 PROSPER ELIZABET ACTIVE DIRECTORY SYSTEMS ADMINISTRATOR Ot J45.909 UNSPECIFIED ASTHMA, UNCOMPLICATED 06/13/2017 PROSPERELIZABET ACTIVE DIRECTORY SYSTEMS ADMINISTRATOR Ot M81.0 AGE-RELATED OSTEOPOROSIS W/O CURRENT PAT 06/13/2017 PROSPERELIZABET ACTIVE DIRECTORY SYSTEMS ADMINISTRATOR Ot R91.8 OTHER NONSPECIFIC ABNORMAL FINDING OF [place] 06/13/2017 GARRETT MADRID MD Ot R07. 2 PRECORDIAL PAIN 06/13/2017 GARRETT MADRID MD Ot Z01.810 ENCOUNTER FOR PREPROCEDURAL CARDIOVASCUL 06/13/2017 GARRETT MADRID MD Ot Z01.811 ENCOUNTER FOR PREPROCEDURAL RESPIRATORY 06/13/2017 GARRETT MADRID MD Ot Z01.812 ENCOUNTER FOR PREPROCEDURAL LABORATORY E 08/03/2017 ISREAL SMITH FACC, MARCK LEMA CCDS Ot E66.09 OTHER OBESITY DUE TO EXCESS CALORIES 08/03/2017 ISREAL SMITH FACC, MARKC CHASEP CCDS Ot I25.10 ATHSCL HEART DISEASE OF [place] CORONARY 08/03/2017 ISREAL SMITH FACC, ALI FACP CCDS Ot I48.2 CHRONIC ATRIAL FIBRILLATION 08/03/2017 ISREAL SMITH FACC, MARCK CHASEP CCDS Ot I73.9 PERIPHERAL VASCULAR DISEASE, UNSPECIFIED 08/03/2017 ISREAL SMITH FACC, MARCK CHASEP CCDS Ot R06.02 SHORTNESS OF BREATH 08/03/2017 ISREAL SMITH FACC, MARCK CHASEP CCDS Ot Z86.79 PERSONAL HISTORY OF OTHER DISEASES OF TH 08/03/2017 ISREAL SMITH FACC, MARCK CHASEP CCDS Ot N18.3 CHRONIC KIDNEY DISEASE, STAGE 3 (MODERAT 08/03/2017 NORIS JANE DO Ot E66. 09 OTHER OBESITY DUE TO EXCESS CALORIES 08/03/2017 NORIS JANE DO Ot I50. 23 ACUTE ON CHRONIC SYSTOLIC (CONGESTIVE) H 08/03/2017 NORIS JANE DO Ot R06. 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 08/03/2017 JOSH SNEED L ACTIVE DIRECTORY SYSTEMS ADMINISTRATOR Ot I70.213 ATHSCL [place] ARTERIES OF EXTRM W INTRMT 08/03/2017 ELIZABET CHENG ACTIVE DIRECTORY SYSTEMS ADMINISTRATOR Ot E11.9 TYPE 2 DIABETES MELLITUS WITHOUT COMPLIC 08/03/2017 ELIZABET CHENG ACTIVE DIRECTORY SYSTEMS ADMINISTRATOR Ot H90.3 SENSORINEURAL HEARING LOSS, BILATERAL 08/03/2017 ELIZABET CHENG ACTIVE DIRECTORY SYSTEMS ADMINISTRATOR Ot H93.13 TINNITUS, BILATERAL 08/03/2017 ELIZABET CHENGP Ot I50.20 UNSPECIFIED SYSTOLIC (CONGESTIVE) HEART 08/03/2017 ELIZABET CHENG ACTIVE DIRECTORY SYSTEMS ADMINISTRATOR Ot I51.7 CARDIOMEGALY 08/03/2017 ELIZABET CHENGP Ot J20.9 ACUTE BRONCHITIS, UNSPECIFIED 08/03/2017 ELIZABET CHENGP Ot J45.909 UNSPECIFIED ASTHMA, UNCOMPLICATED 08/03/2017 ELIZABET CHENG Ot M81.0 AGE-RELATED OSTEOPOROSIS W/O CURRENT PAT 08/03/2017 PROSPER ELIZABET ADÁN Ot R91.8 OTHER NONSPECIFIC ABNORMAL FINDING OF [place] 08/03/2017 GARRETT MADRID MD Ot R07. 2 PRECORDIAL PAIN 08/03/2017 GARRETT MADRID MD Ot Z01.810 ENCOUNTER FOR PREPROCEDURAL CARDIOVASCUL 08/03/2017 GARRETT MADRID MD, Ot Z01.811 ENCOUNTER FOR PREPROCEDURAL RESPIRATORY 08/03/2017 GARRETT MADRID MD, Ot Z01.812 ENCOUNTER FOR PREPROCEDURAL LABORATORY E 08/25/2017 ISREAL SMITH FACC, MARCK FACP CCDS Ot E66.9 OBESITY, UNSPECIFIED 08/25/2017 ISREAL SMITH FACC, ALI FACP CCDS Ot I25.10 ATHSCL HEART DISEASE OF [place] CORONARY 08/25/2017 ISREAL SMITH FACC, ALI FACP CCDS Ot I48.2 CHRONIC ATRIAL FIBRILLATION 08/25/2017 ISREAL SMITH FACC, ALI FACP CCDS Ot I73.9 PERIPHERAL VASCULAR DISEASE, UNSPECIFIED 08/25/2017 ISREAL SMITH FACC, ALI FACP CCDS Ot Z86.79 PERSONAL HISTORY OF OTHER DISEASES OF TH 08/25/2017 ISREAL SMITH FACC, ALI FACP CCDS Ot E66.9 OBESITY, UNSPECIFIED 08/25/2017 ISREAL SMITH FACC, ALI FACP CCDS Ot I25.10 ATHSCL HEART DISEASE OF [place] CORONARY 08/25/2017 ISREAL SMITH FACC, MARCK FACP CCDS Ot I48.2 CHRONIC ATRIAL FIBRILLATION 08/25/2017 ISREAL SMITH FACC, ALI FACP CCDS Ot I73.9 PERIPHERAL VASCULAR DISEASE, UNSPECIFIED 08/25/2017 ISREAL SMITH FACC, ALI FACP CCDS Ot R06.02 SHORTNESS OF BREATH 08/25/2017 ISREAL SMITH FACC, ALI FACP CCDS Ot Z86.79 PERSONAL HISTORY OF OTHER DISEASES OF TH 08/25/2017 ISREAL SMITH FACC, ALI FACP CCDS Ot E66.09 OTHER OBESITY DUE TO EXCESS CALORIES 08/25/2017 ISREAL SMITH FACC, ALI FACP CCDS Ot I25.10 ATHSCL HEART DISEASE OF [place] CORONARY 08/25/2017 ISREAL SMITH FACC, ALI FACP CCDS Ot I48.2 CHRONIC ATRIAL FIBRILLATION 08/25/2017 ISREAL SMITH FACC, MARCK LEMA CCDS Ot I73.9 PERIPHERAL VASCULAR DISEASE, UNSPECIFIED 08/25/2017 ISREAL SMITH FACC, MARCK LEMA CCDS Ot R06.02 SHORTNESS OF BREATH 08/25/2017 ISREAL SMITH FACC, MARCK CHASEP CCDS Ot Z86.79 PERSONAL HISTORY OF OTHER DISEASES OF TH 08/25/2017 ISREAL SMITH FACC, MARCK CHASEP CCDS Ot N18.3 CHRONIC KIDNEY DISEASE, STAGE 3 (MODERAT 08/25/2017 NORIS JANE DO Ot E66. 09 OTHER OBESITY DUE TO EXCESS CALORIES 08/25/2017 NORIS JANE DO Ot I50. 23 ACUTE ON CHRONIC SYSTOLIC (CONGESTIVE) H 08/25/2017 NORIS JANE DO Ot R06. 02 SHORTNESS OF BREATH 08/25/2017 JOSH SNEED ACTIVE DIRECTORY SYSTEMS ADMINISTRATOR Ot I25.10 ATHSCL HEART DISEASE OF [place] CORONARY 08/25/2017 JOSH SNEED L ACTIVE DIRECTORY SYSTEMS ADMINISTRATOR Ot I34.0 NONRHEUMATIC MITRAL (VALVE) INSUFFICIENC 08/25/2017 BAIMA JOSH L ACTIVE DIRECTORY SYSTEMS ADMINISTRATOR Ot I35.0 NONRHEUMATIC AORTIC (VALVE) STENOSIS 08/25/2017 JOSH SNEED L ACTIVE DIRECTORY SYSTEMS ADMINISTRATOR Ot I48.2 CHRONIC ATRIAL FIBRILLATION 08/25/2017 JOSH SNEED L ACTIVE DIRECTORY SYSTEMS ADMINISTRATOR Ot 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 08/25/2017 BAIMAMANUELJOSH L ACTIVE DIRECTORY SYSTEMS ADMINISTRATOR Ot I70.213 ATHSCL [place] ARTERIES OF EXTRM W INTRMT 08/25/2017 ELIZABET CHENG ACTIVE DIRECTORY SYSTEMS ADMINISTRATOR Ot E11.9 TYPE 2 DIABETES MELLITUS WITHOUT COMPLIC 08/25/2017 PROSPER ELIZABET ACTIVE DIRECTORY SYSTEMS ADMINISTRATOR Ot H90.3 SENSORINEURAL HEARING LOSS, BILATERAL 08/25/2017 PROSPERELIZABET AGUIRRE ACTIVE DIRECTORY SYSTEMS ADMINISTRATOR Ot H93.13 TINNITUS, BILATERAL 08/25/2017 ELIZABET CHENG ACTIVE DIRECTORY SYSTEMS ADMINISTRATOR Ot I50.20 UNSPECIFIED SYSTOLIC (CONGESTIVE) HEART 08/25/2017 ELIZABET CHENG ACTIVE DIRECTORY SYSTEMS ADMINISTRATOR Ot I51.7 CARDIOMEGALY 08/25/2017 ELIZABET CHENG ACTIVE DIRECTORY SYSTEMS ADMINISTRATOR Ot J20.9 ACUTE BRONCHITIS, UNSPECIFIED 08/25/2017 ELIZABET CHENG ACTIVE DIRECTORY SYSTEMS ADMINISTRATOR Ot J45.909 UNSPECIFIED ASTHMA, UNCOMPLICATED 08/25/2017 ELIZABET CHENG Ot M81.0 AGE-RELATED OSTEOPOROSIS W/O CURRENT PAT 08/25/2017 ELIZABET CHENG Ot R91.8 OTHER NONSPECIFIC ABNORMAL FINDING OF [place] 08/25/2017 GARRETT MADRID MD Ot R07. 2 PRECORDIAL PAIN 08/25/2017 GARRETT MADRID MD Ot Z01.810 ENCOUNTER FOR PREPROCEDURAL CARDIOVASCUL 08/25/2017 GARRETT MADRID MD, Ot Z01.811 ENCOUNTER FOR PREPROCEDURAL RESPIRATORY 08/25/2017 GARRETT MADRID MD, Ot Z01.812 ENCOUNTER FOR PREPROCEDURAL LABORATORY E 08/25/2017 MICHAEL ROMAN MD, Ot E78.00 PURE HYPERCHOLESTEROLEMIA, UNSPECIFIED 08/25/2017 MICHAEL ROMAN MD, Ot F32.9 MAJOR DEPRESSIVE DISORDER, SINGLE EPISOD 08/25/2017 MICHAEL ROMAN MD, Ot I10 ESSENTIAL (PRIMARY) HYPERTENSION 08/25/2017 MICHAEL ROMAN MD, Ot I25.10 ATHSCL HEART DISEASE OF [place] CORONARY 08/25/2017 MICHAEL ROMAN MD Ot I48.91 UNSPECIFIED ATRIAL FIBRILLATION 08/25/2017 MICHAEL ROMAN MD, Ot I50.9 HEART FAILURE, UNSPECIFIED 08/25/2017 MICHAEL ROMAN MD, Ot J43.9 EMPHYSEMA, UNSPECIFIED 08/25/2017 MICHAEL ROMAN MD, Ot K21.9 GASTRO-ESOPHAGEAL REFLUX DISEASE WITHOUT 08/25/2017 MICHAEL ROMAN MD Ot R06.02 SHORTNESS OF BREATH 08/25/2017 MICHAEL ROMAN MD Ot Z79.51 HALFWAY (CURRENT) USE OF INHALED STERO 08/25/2017 MICHAEL ROMAN MD Ot Z79.52 HALFWAY (CURRENT) USE OF SYSTEMIC STER 08/25/2017 MICHAEL ROMAN MD Ot Z79.82 HALFWAY (CURRENT) USE OF ASPIRIN 08/25/2017 MICHAEL ROMAN MD Ot Z85.528 PERSONAL HISTORY OF OTHER MALIGNANT NEOP 08/25/2017 MICHAEL ROMAN MD, Ot Z87.01 PERSONAL HISTORY OF PNEUMONIA (RECURRENT 08/25/2017 MICHAEL ROMAN MD Ot Z87.19 PERSONAL HISTORY OF OTHER DISEASES OF TH 08/25/2017 MICHAEL ROMAN MD, Ot Z87.440 PERSONAL HISTORY OF URINARY (TRACT) INFE 08/25/2017 MICHAEL ROMAN MD, Ot Z87.891 PERSONAL HISTORY OF NICOTINE DEPENDENCE 08/25/2017 MICHAEL ROMAN MD, Ot Z88.0 ALLERGY STATUS TO PENICILLIN 08/25/2017 MICHAEL ROMAN MD, Ot Z88.1 ALLERGY STATUS TO OTHER ANTIBIOTIC AGENT 08/25/2017 MICHAEL ROMAN MD, Ot Z88.6 ALLERGY STATUS TO ANALGESIC AGENT STATUS 08/25/2017 MICHAEL ROMAN MD, Ot Z90.5 ACQUIRED ABSENCE OF KIDNEY 08/25/2017 MICHAEL ROMAN MD, Ot Z90.89 ACQUIRED ABSENCE OF OTHER ORGANS 08/25/2017 MICHAEL ROMAN MD, Ot Z95.1 PRESENCE OF AORTOCORONARY BYPASS GRAFT 08/25/2017 MICHAEL ROMAN MD, Ot Z95.2 PRESENCE OF PROSTHETIC HEART VALVE 08/28/2017 MICHAEL ROMAN MD Ot E78.00 PURE HYPERCHOLESTEROLEMIA, UNSPECIFIED 08/28/2017 MICHAEL ROMAN MD Ot F32.9 MAJOR DEPRESSIVE DISORDER, SINGLE EPISOD 08/28/2017 MICHAEL ROMAN MD Ot I10 ESSENTIAL (PRIMARY) HYPERTENSION 08/28/2017 MICHAEL ROMAN MD, Ot I25.10 ATHSCL HEART DISEASE OF [place] CORONARY 08/28/2017 MICHAEL ROMAN MD Ot I48.91 UNSPECIFIED ATRIAL FIBRILLATION 08/28/2017 MICHAEL ROMAN MD, Ot I50.9 HEART FAILURE, UNSPECIFIED 08/28/2017 MICHAEL ROMAN MD Ot J43.9 EMPHYSEMA, UNSPECIFIED 08/28/2017 MICHAEL ROMAN MD, Ot K21.9 GASTRO-ESOPHAGEAL REFLUX DISEASE WITHOUT 08/28/2017 MICHAEL ROMAN MD Ot R06.02 SHORTNESS OF BREATH 08/28/2017 MICHAEL ROMAN MD Ot Z79.51 HALFWAY (CURRENT) USE OF INHALED STERO 08/28/2017 MICHAEL ROMAN MD Ot Z79.52 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 SYSTEMIC STER 08/28/2017 MICHAEL ROMAN MD Ot 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 08/28/2017 MICHAEL ROMAN MD Ot Z85.528 PERSONAL HISTORY OF OTHER MALIGNANT NEOP 08/28/2017 MICHAEL ROMAN MD Ot Z87.01 PERSONAL HISTORY OF PNEUMONIA (RECURRENT 08/28/2017 MICHAEL ROMAN MD Ot Z87.19 PERSONAL HISTORY OF OTHER DISEASES OF TH 08/28/2017 MICHAEL ROMAN MD Ot Z87.440 PERSONAL HISTORY OF URINARY (TRACT) INFE 08/28/2017 MICHAEL ROMAN MD Ot Z87.891 PERSONAL HISTORY OF NICOTINE DEPENDENCE 08/28/2017 MICHAEL ROMAN MD Ot Z88.0 ALLERGY STATUS TO PENICILLIN 08/28/2017 MICHAEL ROMAN MD Ot Z88.1 ALLERGY STATUS TO OTHER ANTIBIOTIC AGENT 08/28/2017 MICHAEL ROMAN MD Ot Z88.6 ALLERGY STATUS TO ANALGESIC AGENT STATUS 08/28/2017 MICHAEL ROMAN MD Ot Z90.5 ACQUIRED ABSENCE OF KIDNEY 08/28/2017 MICHAEL ROMAN MD Ot Z90.89 ACQUIRED ABSENCE OF OTHER ORGANS 08/28/2017 MICHAEL ROMAN MD Ot Z95.1 PRESENCE OF AORTOCORONARY BYPASS GRAFT 08/28/2017 MICHAEL ROMAN MD Ot Z95.2 PRESENCE OF PROSTHETIC HEART VALVE 11/29/2017 ISREAL SMITH FACC, MARCK FACP CCDS Ot E66.9 OBESITY, UNSPECIFIED 11/29/2017 MARCK BACH MD, FACC FACP CCDS Ot I25.10 ATHSCL HEART DISEASE OF [place] CORONARY 11/29/2017 MARCK BACH MD, FACC FACP CCDS Ot I48.2 CHRONIC ATRIAL FIBRILLATION 11/29/2017 MARCK BACH MD, FACC FACP CCDS Ot I73.9 PERIPHERAL VASCULAR DISEASE, UNSPECIFIED 11/29/2017 MARCK BACH MD, FACC FACP CCDS Ot Z86.79 PERSONAL HISTORY OF OTHER DISEASES OF 11/29/2017 MARCK BACH MD, FACC FACP CCDS Ot E66.9 OBESITY, UNSPECIFIED 11/29/2017 MARCK BACH MD, FACC FACP CCDS Ot I25.10 ATHSCL HEART DISEASE OF [place] CORONARY 11/29/2017 ISREAL MD FACC, ALI FACP CCDS Ot I48.2 CHRONIC ATRIAL FIBRILLATION 11/29/2017 ISREAL SMITH FACC, ALI FACP CCDS Ot I73.9 PERIPHERAL VASCULAR DISEASE, UNSPECIFIED 11/29/2017 ISREAL SMITH FACC, ALI FACP CCDS Ot R06.02 SHORTNESS OF BREATH 11/29/2017 ISREAL SMITH FACC, ALI FACP CCDS Ot Z86.79 PERSONAL HISTORY OF OTHER DISEASES OF 12/04/2017 ISREAL SMITH FACC, ALI FACP CCDS Ot E66.9 OBESITY, UNSPECIFIED 12/04/2017 ISREAL SMITH FACC, ALI FACP CCDS Ot I25.10 ATHSCL HEART DISEASE OF [place] CORONARY 12/04/2017 ISREAL SMITH FACC, ALI FACP CCDS Ot I48.2 CHRONIC ATRIAL FIBRILLATION 12/04/2017 ISREAL SMITH FACC, ALI FACP CCDS Ot I73.9 PERIPHERAL VASCULAR DISEASE, UNSPECIFIED 12/04/2017 ISREAL SMITH FACC, ALI FACP CCDS Ot Z86.79 PERSONAL HISTORY OF OTHER DISEASES OF 12/04/2017 ISREAL SMITH FACC, ALI FACP CCDS Ot E66.9 OBESITY, UNSPECIFIED 12/04/2017 ISREAL SMITH FACC, ALI FACP CCDS Ot I25.10 ATHSCL HEART DISEASE OF [place] CORONARY 12/04/2017 ISREAL SMITH FACC, ALI FACP CCDS Ot I48.2 CHRONIC ATRIAL FIBRILLATION 12/04/2017 ISREAL SMITH FACC, ALI FACP CCDS Ot I73.9 PERIPHERAL VASCULAR DISEASE, UNSPECIFIED 12/04/2017 ISREAL SMITH FACC, ALI FACP CCDS Ot R06.02 SHORTNESS OF BREATH 12/04/2017 ISREAL SMITH FACC, ALI FACP CCDS Ot Z86.79 PERSONAL HISTORY OF OTHER DISEASES OF 12/06/2017 JOSH SNEED ACTIVE DIRECTORY SYSTEMS ADMINISTRATOR Ot I08.1 RHEUMATIC DISORDERS OF BOTH MITRAL AND T 12/06/2017 JOSH SNEED L ACTIVE DIRECTORY SYSTEMS ADMINISTRATOR Ot I25.10 ATHSCL HEART DISEASE OF [place] CORONARY 12/06/2017 JOSH SNEED L ACTIVE DIRECTORY SYSTEMS ADMINISTRATOR Ot I25.5 ISCHEMIC CARDIOMYOPATHY 12/06/2017 JOSH SNEED ACTIVE DIRECTORY SYSTEMS ADMINISTRATOR Ot I48.2 CHRONIC ATRIAL FIBRILLATION 12/06/2017 JOSH SNEED L ACTIVE DIRECTORY SYSTEMS ADMINISTRATOR Ot 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 12/15/2017 JOSH SNEED ACTIVE DIRECTORY SYSTEMS ADMINISTRATOR Ot I08.1 RHEUMATIC DISORDERS OF BOTH MITRAL AND T 12/15/2017 JOSH SNEED L ACTIVE DIRECTORY SYSTEMS ADMINISTRATOR Ot I25.10 ATHSCL HEART DISEASE OF [place] CORONARY 12/15/2017 JOSH SNEED L ACTIVE DIRECTORY SYSTEMS ADMINISTRATOR Ot I25.5 ISCHEMIC CARDIOMYOPATHY 12/15/2017 JOSH SNEED L ACTIVE DIRECTORY SYSTEMS ADMINISTRATOR Ot I48.2 CHRONIC ATRIAL FIBRILLATION 12/15/2017 JOSH SNEED L ACTIVE DIRECTORY SYSTEMS ADMINISTRATOR Ot 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 01/25/2018 JOSH SNEED ACTIVE DIRECTORY SYSTEMS ADMINISTRATOR Ot I08.1 RHEUMATIC DISORDERS OF BOTH MITRAL AND T 01/25/2018 JOSH SNEED L ACTIVE DIRECTORY SYSTEMS ADMINISTRATOR Ot I25.10 ATHSCL HEART DISEASE OF [place] CORONARY 01/25/2018 JOSH SNEED [place] ACTIVE DIRECTORY SYSTEMS ADMINISTRATOR Ot I25.5 ISCHEMIC CARDIOMYOPATHY 01/25/2018 JOSH SNEED [place] ACTIVE DIRECTORY SYSTEMS ADMINISTRATOR Ot I48.2 CHRONIC ATRIAL FIBRILLATION 01/25/2018 RUBÉNJOSH FLORES [place] ACTIVE DIRECTORY SYSTEMS ADMINISTRATOR Ot 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 04/26/2018 QUINN ALCARAZ MD Ot Z01.81 8 ENCOUNTER FOR OTHER PREPROCEDURAL EXAMIN 04/26/2018 QUINN ALCARAZ MD Ot Z01.81 8 ENCOUNTER FOR OTHER PREPROCEDURAL EXAMIN 04/26/2018 QUINN ALCARAZ MD Ot Z01.81 8 ENCOUNTER FOR OTHER PREPROCEDURAL EXAMIN 04/26/2018 QUINN ALCARAZ MD Ot Z01.81 8 ENCOUNTER FOR OTHER PREPROCEDURAL EXAMIN 05/01/2018 MARCK BACH MD, FACC FACP CCDS Ot E66.9 OBESITY, UNSPECIFIED 05/01/2018 MARCK BACH MD, FACC FACP CCDS Ot I25.10 ATHSCL HEART DISEASE OF [place] CORONARY 05/01/2018 MARCK BACH MD, FACC FACP CCDS Ot I48.2 CHRONIC ATRIAL FIBRILLATION 05/01/2018 MARCK BACH MD, FACC FACP CCDS Ot I73.9 PERIPHERAL VASCULAR DISEASE, UNSPECIFIED 05/01/2018 ISREAL SMITH FACC, ALI FACP CCDS Ot Z86.79 PERSONAL HISTORY OF OTHER DISEASES OF TH 05/01/2018 MARCK BACH MD, FACC FACP CCDS Ot E66.9 OBESITY, UNSPECIFIED 05/01/2018 ISREAL SMITH FACC, ALI FACP CCDS Ot I25.10 ATHSCL HEART DISEASE OF [place] CORONARY 05/01/2018 ISREAL SMITH FACC, ALI FACP CCDS Ot I48.2 CHRONIC ATRIAL FIBRILLATION 05/01/2018 ISREAL SMITH FACC, ALI FACP CCDS Ot I73.9 PERIPHERAL VASCULAR DISEASE, UNSPECIFIED 05/01/2018 ISREAL SMITH FACC, ALI FACP CCDS Ot R06.02 SHORTNESS OF BREATH 05/01/2018 ISREAL SMITH FACC, ALI FACP CCDS Ot Z86.79 PERSONAL HISTORY OF OTHER DISEASES OF TH 05/01/2018 JOSH SNEED ACTIVE DIRECTORY SYSTEMS ADMINISTRATOR Ot I08.1 RHEUMATIC DISORDERS OF BOTH MITRAL AND T 05/01/2018 JOSH SNEED ACTIVE DIRECTORY SYSTEMS ADMINISTRATOR Ot I25.10 ATHSCL HEART DISEASE OF [place] CORONARY 05/01/2018 JOSH SNEED ACTIVE DIRECTORY SYSTEMS ADMINISTRATOR Ot I25.5 ISCHEMIC CARDIOMYOPATHY 05/01/2018 JOSH SNEED ACTIVE DIRECTORY SYSTEMS ADMINISTRATOR Ot I48.2 CHRONIC ATRIAL FIBRILLATION 05/01/2018 JOSH SNEED ACTIVE DIRECTORY SYSTEMS ADMINISTRATOR Ot 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 05/02/2018 ISREAL SMITH FACC, ALI FACP CCDS Ot E66.9 OBESITY, UNSPECIFIED 05/02/2018 ISREAL SMITH FACC, ALI FACP CCDS Ot I25.10 ATHSCL HEART DISEASE OF [place] CORONARY 05/02/2018 ISREAL SMITH FACC, ALI FACP CCDS Ot I48.2 CHRONIC ATRIAL FIBRILLATION 05/02/2018 ISREAL SMITH FACC, ALI FACP CCDS Ot I73.9 PERIPHERAL VASCULAR DISEASE, UNSPECIFIED 05/02/2018 ISREAL SMITH FACC, ALI FACP CCDS Ot Z86.79 PERSONAL HISTORY OF OTHER DISEASES OF TH 05/02/2018 ISREAL SMITH FACC, ALI FACP CCDS Ot E66.9 OBESITY, UNSPECIFIED 05/02/2018 ISREAL SMITH FACS[place], ALI FACP CCDS Ot I25.10 ATHSCL HEART DISEASE OF [place] CORONARY 05/02/2018 ISREAL SMITH FACC, ALI FACP CCDS Ot I48.2 CHRONIC ATRIAL FIBRILLATION 05/02/2018 ISREAL SMITH FACC, ALI FACP CCDS Ot I73.9 PERIPHERAL VASCULAR DISEASE, UNSPECIFIED 05/02/2018 ISREAL SMITH FACC, ALI FACP CCDS Ot R06.02 SHORTNESS OF BREATH 05/02/2018 ISREAL SMITH FAC, ALI FACP CCDS Ot Z86.79 PERSONAL HISTORY OF OTHER DISEASES OF TH 05/02/2018 JOSH SNEED ACTIVE DIRECTORY SYSTEMS ADMINISTRATOR Ot I08.1 RHEUMATIC DISORDERS OF BOTH MITRAL AND T 05/02/2018 JOSH SNEED ACTIVE DIRECTORY SYSTEMS ADMINISTRATOR Ot I25.10 ATHSCL HEART DISEASE OF [place] CORONARY 05/02/2018 JOSH SNEED ACTIVE DIRECTORY SYSTEMS ADMINISTRATOR Ot I25.5 ISCHEMIC CARDIOMYOPATHY 05/02/2018 JOSH SNEED ACTIVE DIRECTORY SYSTEMS ADMINISTRATOR Ot I48.2 CHRONIC ATRIAL FIBRILLATION 05/02/2018 RUBÉNJOSH FLORES ACTIVE DIRECTORY SYSTEMS ADMINISTRATOR Ot 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 05/02/2018 QUINN ALCARAZ MD, Ot D64.9 ANEMIA, UNSPECIFIED 05/02/2018 QUINN ALCARAZ MD, Ot E55.9 VITAMIN D DEFICIENCY, UNSPECIFIED 05/02/2018 QUINN ALCARAZ MD, Ot E78.00 PURE HYPERCHOLESTEROLEMIA, UNSPECIFIED 05/02/2018 QUINN ALCARAZ MD, Ot I10 ESSENTIAL (PRIMARY) HYPERTENSION 05/02/2018 QUINN ALCARAZ MD, Ot J44.9 CHRONIC OBSTRUCTIVE PULMONARY DISEASE, U 05/02/2018 QUINN ALCARAZ MD, Ot K21.0 GASTRO-ESOPHAGEAL REFLUX DISEASE WITH ES 05/02/2018 QUINN ALCARAZ MD, Ot K22.2 ESOPHAGEAL OBSTRUCTION 05/02/2018 QUINN ALCARAZ MD, Ot K29.50 UNSPECIFIED CHRONIC GASTRITIS WITHOUT BL 05/02/2018 QUINN ALCARAZ MD, Ot K44.9 DIAPHRAGMATIC HERNIA WITHOUT OBSTRUCTION 05/02/2018 QUINN ALCARAZ MD, Ot K57.30 DVRTCLOS OF LG INT W/O PERFORATION OR AB 05/02/2018 QUINN ALCARAZ MD, Ot K64.1 SECOND DEGREE HEMORRHOIDS 05/02/2018 QUINN ALCARAZ MD, Ot M06.9 RHEUMATOID ARTHRITIS, UNSPECIFIED 05/02/2018 QUINN ALCARAZ MD, Ot N40.0 BENIGN PROSTATIC HYPERPLASIA WITHOUT LOW 05/02/2018 QUINN ALCARAZ MD, Ot R19.5 OTHER FECAL ABNORMALITIES 05/02/2018 QUINN ALCARAZ MD, Ot 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 05/02/2018 QUINN ALCARAZ MD, Ot Z79.89 9 OTHER HALFWAY (CURRENT) DRUG THERAPY 05/02/2018 QUINN ALCARAZ MD, Ot Z86.01 0 PERSONAL HISTORY OF COLONIC POLYPS 05/02/2018 QUINN ALCARAZ MD, Ot Z88.0 ALLERGY STATUS TO PENICILLIN 05/02/2018 QUINN ALCARAZ MD, Ot Z88.1 ALLERGY STATUS TO OTHER ANTIBIOTIC AGENT 05/02/2018 QUINN ALCARAZ MD, Ot Z95.1 PRESENCE OF AORTOCORONARY BYPASS GRAFT 05/04/2018 QUINN ALCARAZ MD, Ot D64.9 ANEMIA, UNSPECIFIED 05/04/2018 QUINN ALCARAZ MD, Ot E55.9 VITAMIN D DEFICIENCY, UNSPECIFIED 05/04/2018 QUINN ALCARAZ MD, Ot E78.00 PURE HYPERCHOLESTEROLEMIA, UNSPECIFIED 05/04/2018 QUINN ALCARAZ MD, Ot I10 ESSENTIAL (PRIMARY) HYPERTENSION 05/04/2018 QUINN ALCARAZ MD, Ot J44.9 CHRONIC OBSTRUCTIVE PULMONARY DISEASE, U 05/04/2018 QUINN ALCARAZ MD, Ot K21.0 GASTRO-ESOPHAGEAL REFLUX DISEASE WITH ES 05/04/2018 QUINN ALCARAZ MD, Ot K22.2 ESOPHAGEAL OBSTRUCTION 05/04/2018 QUINN ALCARAZ MD, Ot K29.50 UNSPECIFIED CHRONIC GASTRITIS WITHOUT BL 05/04/2018 QUINN ALCARAZ MD, Ot K44.9 DIAPHRAGMATIC HERNIA WITHOUT OBSTRUCTION 05/04/2018 QUINN ALCARAZ MD, Ot K57.30 DVRTCLOS OF LG INT W/O PERFORATION OR AB 05/04/2018 QUINN ALCARAZ MD, Ot K64.1 SECOND DEGREE HEMORRHOIDS 05/04/2018 QUINN ALCARAZ MD, Ot M06.9 RHEUMATOID ARTHRITIS, UNSPECIFIED 05/04/2018 QUINN ALCARAZ MD, Ot N40.0 BENIGN PROSTATIC HYPERPLASIA WITHOUT LOW 05/04/2018 QUINN ALCARAZ MD, Ot R19.5 OTHER FECAL ABNORMALITIES 05/04/2018 QUINN ALCARAZ MD, Ot Z79.82 HALFWAY (CURRENT) USE OF ASPIRIN 05/04/2018 QUINN ALCARAZ MD, Ot Z79.89 9 OTHER HALFWAY (CURRENT) DRUG THERAPY 05/04/2018 QUINN ALCARAZ MD, Ot Z86.01 0 PERSONAL HISTORY OF COLONIC POLYPS 05/04/2018 QUINN ALCARAZ MD, Ot Z88.0 ALLERGY STATUS TO PENICILLIN 05/04/2018 QUINN ALCARAZ MD, Ot Z88.1 ALLERGY STATUS TO OTHER ANTIBIOTIC AGENT 05/04/2018 QUINN ALCARAZ MD, Ot Z95.1 PRESENCE OF AORTOCORONARY BYPASS GRAFT 05/07/2018 QUINN ALCARAZ MD, Ot D64.9 ANEMIA, UNSPECIFIED 05/07/2018 QUINN ALCARAZ MD, Ot E55.9 VITAMIN D DEFICIENCY, UNSPECIFIED 05/07/2018 QUINN ALCARAZ MD, Ot E78.00 PURE HYPERCHOLESTEROLEMIA, UNSPECIFIED 05/07/2018 QUINN ALCARAZ MD, Ot I10 ESSENTIAL (PRIMARY) HYPERTENSION 05/07/2018 QUINN ALCARAZ MD, Ot J44.9 CHRONIC OBSTRUCTIVE PULMONARY DISEASE, U 05/07/2018 QUINN ALCARAZ MD, Ot K21.0 GASTRO-ESOPHAGEAL REFLUX DISEASE WITH ES 05/07/2018 QUINN ALCARAZ MD, Ot K22.2 ESOPHAGEAL OBSTRUCTION 05/07/2018 QUINN ALCARAZ MD, Ot K29.50 UNSPECIFIED CHRONIC GASTRITIS WITHOUT BL 05/07/2018 QUINN ALCARAZ MD, Ot K44.9 DIAPHRAGMATIC HERNIA WITHOUT OBSTRUCTION 05/07/2018 QUINN ALCARAZ MD, Ot K57.30 DVRTCLOS OF LG INT W/O PERFORATION OR AB 05/07/2018 QUINN ALCARAZ MD, Ot K64.1 SECOND DEGREE HEMORRHOIDS 05/07/2018 QUINN ALCARAZ MD, Ot M06.9 RHEUMATOID ARTHRITIS, UNSPECIFIED 05/07/2018 QUINN ALCARAZ MD, Ot N40.0 BENIGN PROSTATIC HYPERPLASIA WITHOUT LOW 05/07/2018 QUINN ALCARAZ MD, Ot R19.5 OTHER FECAL ABNORMALITIES 05/07/2018 QUINN ALCARAZ MD, Ot 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 05/07/2018 QUINN ALCARAZ MD, Ot Z79.89 9 OTHER HALFWAY (CURRENT) DRUG THERAPY 05/07/2018 QUINN ALCARAZ MD, Ot Z86.01 0 PERSONAL HISTORY OF COLONIC POLYPS 05/07/2018 QUINN ALCARAZ MD, Ot Z88.0 ALLERGY STATUS TO PENICILLIN 05/07/2018 QUINN ALCARAZ MD, Ot Z88.1 ALLERGY STATUS TO OTHER ANTIBIOTIC AGENT 05/07/2018 KIERAN SMITH, QUINN Ot Z95.1 PRESENCE OF AORTOCORONARY BYPASS GRAFT 05/30/2018 JOSH SNEED [employer] ADMINISTRATOR Ot Z29.8 ENCOUNTER FOR OTHER SPECIFIED PROPHYLACT 06/04/2018 ISREAL SMITH FACC, ALI FACP CCDS Ot E66.9 OBESITY, UNSPECIFIED 06/04/2018 ISREAL SMITH FACC, ALI FACP CCDS Ot I25.10 ATHSCL HEART DISEASE OF [place] CORONARY 06/04/2018 ISREAL SMITH FACC, ALI FACP CCDS Ot I48.2 CHRONIC ATRIAL FIBRILLATION 06/04/2018 ISREAL SMITH FACC, ALI FACP CCDS Ot I73.9 PERIPHERAL VASCULAR DISEASE, UNSPECIFIED 06/04/2018 ISREAL SMITH FACC, ALI FACP CCDS Ot Z86.79 PERSONAL HISTORY OF OTHER DISEASES OF 06/04/2018 ISREAL SMITH FACC, ALI FACP CCDS Ot E66.9 OBESITY, UNSPECIFIED 06/04/2018 ISREAL SMITH [facility], ALI FACP CCDS Ot I25.10 ATHSCL HEART DISEASE OF [place] CORONARY 06/04/2018 ISREAL SMITH FACC, ALI FACP CCDS Ot I48.2 CHRONIC ATRIAL FIBRILLATION 06/04/2018 ISREAL MSITH FAC, ALI FACP CCDS Ot I73.9 PERIPHERAL VASCULAR DISEASE, UNSPECIFIED 06/04/2018 ISREAL SMITH FAC, ALI FACP CCDS Ot R06.02 SHORTNESS OF BREATH 06/04/2018 ISREAL SMITH FACC, ALI FACP CCDS Ot Z86.79 PERSONAL HISTORY OF OTHER DISEASES OF 06/04/2018 JOSH S[employer] ADMINISTRATOR Ot I08.1 RHEUMATIC DISORDERS OF BOTH [place] AND T 06/04/2018 JOSH SNEED L [employer] SYSTEMS ADMINISTRATOR Ot I25.10 ATHSCL HEART DISEASE OF [place] CORONARY 06/04/2018 JOSH SNE[employer] ADMINISTRATOR Ot I25.5 ISCHEMIC CARDIOMYOPATHY 06/04/2018 JOSH SNE[employer]S ADMINISTRATOR Ot I48.2 CHRONIC ATRIAL FIBRILLATION 06/04/2018 JOSH SNE[employer] ADMINISTRATOR Ot 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 07/04/2018 JOSH SNE[employer] ADMINISTRATOR Ot Z29.8 ENCOUNTER FOR OTHER SPECIFIED PROPHYLACT 07/05/2018 JOSH SNE[employer] ADMINISTRATOR Ot Z29.8 ENCOUNTER FOR OTHER SPECIFIED PROPHYLACT 07/09/2018 ISREAL SIMTH FAC, ALI FACP CCDS Ot E66.9 OBESITY, UNSPECIFIED 07/09/2018 ISREAL SMITH FAC, ALI FACP CCDS Ot I25.10 ATHSCL HEART DISEASE OF [place] CORONARY 07/09/2018 ISREAL SMITH FAC, ALI FACP CCDS Ot I48.2 CHRONIC ATRIAL FIBRILLATION 07/09/2018 ISREAL SMITH [facility], ALI FACP CCDS Ot I73.9 PERIPHERAL VASCULAR DISEASE, UNSPECIFIED 07/09/2018 ISREAL SMITH [facility], ALI FACP CCDS Ot Z86.79 PERSONAL HISTORY OF OTHER DISEASES OF TH 07/09/2018 ISREAL SMITH [facility], ALI FACP CCDS Ot E66.9 OBESITY, UNSPECIFIED 07/09/2018 ISREAL SMITH [facility], ALI FACP CCDS Ot I25.10 ATHSCL HEART DISEASE OF [place] CORONARY 07/09/2018 ISREAL SMITH [facility], ALI FACP CCDS Ot I48.2 CHRONIC ATRIAL FIBRILLATION 07/09/2018 ISREAL SMITH [facility], ALI FACP CCDS Ot I73.9 PERIPHERAL VASCULAR DISEASE, UNSPECIFIED 07/09/2018 ISREAL SMITH [facility], ALI FACP CCDS Ot R06.02 SHORTNESS OF BREATH 07/09/2018 ISREAL SMITH [facility], ALI FACP CCDS Ot Z86.79 PERSONAL HISTORY OF OTHER DISEASES OF 07/09/2018 JOSH SNE[employer] ADMINISTRATOR Ot I08.1 RHEUMATIC DISORDERS OF BOTH [place] AND T 07/09/2018 JOSH SNE[employer]S ADMINISTRATOR Ot I25.10 ATHSCL HEART DISEASE OF [place] CORONARY 07/09/2018 JOSH SNE[employer]S ADMINISTRATOR Ot I25.5 ISCHEMIC CARDIOMYOPATHY 07/09/2018 JOSH [employer] ADMINISTRATOR Ot I48.2 CHRONIC ATRIAL FIBRILLATION 07/09/2018 JOSH SNEED ACTIVE DIRECTORY SYSTEMS ADMINISTRATOR Ot 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 07/15/2018 CRISTI SAENZ APRN Ot E66.09 OTHER OBESITY DUE TO EXCESS CALORIES 07/15/2018 CRISTI SAENZ APRN Ot G47.10 HYPERSOMNIA, UNSPECIFIED 07/15/2018 CRISTI SAENZ APRN Ot I51.7 CARDIOMEGALY 07/15/2018 CRISTI SAENZ APRN Ot J44.9 CHRONIC OBSTRUCTIVE PULMONARY DISEASE, U 07/15/2018 CRISTI SAENZ MULTI LINE CLAIMS ADJUSTER Ot J98.11 ATELECTASIS 07/15/2018 CRISTI SAENZ MULTI LINE CLAIMS ADJUSTER Ot J98.4 OTHER DISORDERS OF LUNG 07/15/2018 CRISTI SAENZ MULTI LINE CLAIMS ADJUSTER Ot M43.8X4 OTHER SPECIFIED DEFORMING DORSOPATHIES, 07/15/2018 CRISTI SAENZ MULTI LINE CLAIMS ADJUSTER Ot M47.814 SPONDYLOSIS W/O MYELOPATHY OR RADICULOPA 07/15/2018 CRISTI SAENZ MULTI LINE CLAIMS ADJUSTER Ot M84.48XK PATHOLOGICAL FRACTURE, OTH SITE, SUBS FO 07/15/2018 CRISTI SAENZ MULTI LINE CLAIMS ADJUSTER Ot R91.1 SOLITARY PULMONARY NODULE 07/15/2018 CRISTI SAENZ MULTI LINE CLAIMS ADJUSTER Ot Z95.2 PRESENCE OF PROSTHETIC HEART VALVE 07/15/2018 CRISTI SAENZ MULTI LINE CLAIMS ADJUSTER Ot Z98.890 OTHER SPECIFIED POSTPROCEDURAL STATES 07/18/2018 ISREAL SMITH FACC, MARCK FACP CCDS Ot E66.9 OBESITY, UNSPECIFIED 07/18/2018 ISREAL SMITH FACC, ALI FACP CCDS Ot I25.10 ATHSCL HEART DISEASE OF [place] CORONARY 07/18/2018 ISREAL SMITH FACC, MARCK FACP CCDS Ot I48.2 CHRONIC ATRIAL FIBRILLATION 07/18/2018 ISREAL SMITH FACC, ALI FACP CCDS Ot I73.9 PERIPHERAL VASCULAR DISEASE, UNSPECIFIED 07/18/2018 ISREAL SMITH FACC, ALI FACP CCDS Ot Z86.79 PERSONAL HISTORY OF OTHER DISEASES OF TH 07/18/2018 ISREAL SMITH FACC, MARCK FACP CCDS Ot E66.9 OBESITY, UNSPECIFIED 07/18/2018 ISREAL SMITH FACC, ALI FACP CCDS Ot I25.10 ATHSCL HEART DISEASE OF [place] CORONARY 07/18/2018 ISREAL SMITH FACC, MARCK FACP CCDS Ot I48.2 CHRONIC ATRIAL FIBRILLATION 07/18/2018 ISREAL SMITH FACC, ALI FACP CCDS Ot I73.9 PERIPHERAL VASCULAR DISEASE, UNSPECIFIED 07/18/2018 ISREAL SMITH FACC, ALI FACP CCDS Ot R06.02 SHORTNESS OF BREATH 07/18/2018 ISREAL SMITH FACC, ALI FACP CCDS Ot Z86.79 PERSONAL HISTORY OF OTHER DISEASES OF 07/18/2018 JOSH SNEED ACT[employer] DIRECTORY SYSTEMS ADMINISTRATOR Ot I08.1 RHEUMATIC DISORDERS OF BOTH MITRAL AND T 07/18/2018 RUBÉNJOSH FLORES ACTIVE DIRECTORY SYSTEMS ADMINISTRATOR Ot I25.10 ATHSCL HEART DISEASE OF [place] CORONARY 07/18/2018 JOSH SNEED ACTIVE DIRECTORY SYSTEMS ADMINISTRATOR Ot I25.5 ISCHEMIC CARDIOMYOPATHY 07/18/2018 RUBÉNJOSH FLORES ACTIVE DIRECTORY SYSTEMS ADMINISTRATOR Ot I48.2 CHRONIC ATRIAL FIBRILLATION 07/18/2018 RUBÉNJOSH FLORES ACTIVE DIRECTORY SYSTEMS ADMINISTRATOR Ot 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 07/18/2018 CRISTI SAENZ MULTI LINE CLAIMS ADJUSTER Ot E66.09 OTHER OBESITY DUE TO EXCESS CALORIES 07/18/2018 CRISTI SAENZ APRN Ot G47.10 HYPERSOMNIA, UNSPECIFIED 07/18/2018 CRISTI SAENZ APRN Ot I51.7 CARDIOMEGALY 07/18/2018 CRISTI SAENZ APRN Ot J44.9 CHRONIC OBSTRUCTIVE PULMONARY DISEASE, U 07/18/2018 CRISTI SAENZ APRN Ot J98.11 ATELECTASIS 07/18/2018 CRISTI SAENZ MULTI LINE CLAIMS ADJUSTER Ot J98.4 OTHER DISORDERS OF LUNG 07/18/2018 CRISTI SAENZ MULTI LINE CLAIMS ADJUSTER Ot M43.8X4 OTHER SPECIFIED DEFORMING DORSOPATHIES, 07/18/2018 CRISTI SAENZ MULTI LINE CLAIMS ADJUSTER Ot M47.814 SPONDYLOSIS W/O MYELOPATHY OR RADICULOPA 07/18/2018 CRISTI SAENZ MULTI LINE CLAIMS ADJUSTER Ot M84.48XK PATHOLOGICAL FRACTURE, OT SITE, SUBS FO 07/18/2018 CRISTI SAENZ MULTI LINE CLAIMS ADJUSTER Ot R91.1 SOLITARY PULMONARY NODULE 07/18/2018 CRISTI SAENZ MULTI LINE CLAIMS ADJUSTER Ot Z95.2 PRESENCE OF PROSTHETIC HEART VALVE 07/18/2018 CRISTI SAENZ MULTI LINE CLAIMS ADJUSTER Ot Z98.890 OTHER SPECIFIED POSTPROCEDURAL STATES 07/25/2018 CRISTI SAENZ MULTI LINE CLAIMS ADJUSTER Ot E66.09 OTHER OBESITY DUE TO EXCESS CALORIES 07/25/2018 CRISTI SAENZ MULTI LINE CLAIMS ADJUSTER Ot G47.10 HYPERSOMNIA, UNSPECIFIED 07/25/2018 CRISTI SAENZ MULTI LINE CLAIMS ADJUSTER Ot I51.7 CARDIOMEGALY 07/25/2018 CRISTI SAENZ MULTI LINE CLAIMS ADJUSTER Ot J44.9 CHRONIC OBSTRUCTIVE PULMONARY DISEASE, U 07/25/2018 CRISTI SAENZ MULTI LINE CLAIMS ADJUSTER Ot J98.11 ATELECTASIS 07/25/2018 CRISTI SAENZ MULTI LINE CLAIMS ADJUSTER Ot J98.4 OTHER DISORDERS OF LUNG 07/25/2018 CRISTI SAENZ MULTI LINE CLAIMS ADJUSTER Ot M43.8X4 OTHER SPECIFIED DEFORMING DORSOPATHIES, 07/25/2018 CRISTI SAENZ MULTI LINE CLAIMS ADJUSTER Ot M47.814 SPONDYLOSIS W/O MYELOPATHY OR RADICULOPA 07/25/2018 CRISTI SANEZ APRN Ot M84.48XK PATHOLOGICAL FRACTURE, OT SITE, SUBS FO 07/25/2018 CRISTI SAENZ MULTI LINE CLAIMS ADJUSTER Ot R91.1 SOLITARY PULMONARY NODULE 07/25/2018 CRISTI SAENZ MULTI LINE CLAIMS ADJUSTER Ot Z95.2 PRESENCE OF PROSTHETIC HEART VALVE 07/25/2018 CRISTI SAENZ MULTI LINE CLAIMS ADJUSTER Ot Z98.890 OTHER SPECIFIED POSTPROCEDURAL STATES 08/17/2018 JOSH SNEED Ot Z29.8 ENCOUNTER FOR OTHER SPECIFIED PROPHYLACT 08/27/2018 QUINN ALCARAZ MD Ot D64.9 ANEMIA, UNSPECIFIED 08/31/2018 CRISTI SAENZ MULTI LINE CLAIMS ADJUSTER Ot E66.09 OTHER OBESITY DUE TO EXCESS CALORIES 08/31/2018 CRISTI SAENZ APRN Ot G47.10 HYPERSOMNIA, UNSPECIFIED 08/31/2018 CRISTI SAENZ APRN Ot J44.9 CHRONIC OBSTRUCTIVE PULMONARY DISEASE, U 08/31/2018 CRISTI SAENZ APRN Ot J98.4 OTHER DISORDERS OF LUNG 08/31/2018 CRISTI SAENZ APRN Ot R06.02 SHORTNESS OF BREATH 08/31/2018 CRISTI SAENZ MULTI LINE CLAIMS ADJUSTER Ot R09.02 HYPOXEMIA 08/31/2018 CRISTI SAENZ MULTI LINE CLAIMS ADJUSTER Ot R91.8 OTHER NONSPECIFIC ABNORMAL FINDING OF [place] 09/12/2018 CRISTI SAENZ MULTI LINE CLAIMS ADJUSTER Ot G47.9 SLEEP DISORDER, UNSPECIFIED 09/12/2018 CRISTI SAENZ MULTI LINE CLAIMS ADJUSTER Ot G47.9 SLEEP DISORDER, UNSPECIFIED 09/18/2018 CRISTI SAENZ MULTI LINE CLAIMS ADJUSTER Ot G47.9 SLEEP DISORDER, UNSPECIFIED 10/22/2018 CRISTI SAENZ MULTI LINE CLAIMS ADJUSTER Ot G47.9 SLEEP DISORDER, UNSPECIFIED 10/23/2018 DANYFARHAD ROBERTSINE Carmela MULTI LINE CLAIMS ADJUSTER Ot E66.9 OBESITY, UNSPECIFIED 10/23/2018 DANY, CRISTI E MULTI LINE CLAIMS ADJUSTER Ot G47.10 HYPERSOMNIA, UNSPECIFIED 10/23/2018 DANYFARHAD ROBERTSINE E MULTI LINE CLAIMS ADJUSTER Ot G47.36 SLEEP RELATED HYPOVENTILATION IN CONDITI 10/23/2018 DANYFARHAD ROBERTSINE E MULTI LINE CLAIMS ADJUSTER Ot G47.50 PARASOMNIA, UNSPECIFIED 11/14/2018 DANYFARHAD ROBERTSINE E MULTI LINE CLAIMS ADJUSTER Ot E66.9 OBESITY, UNSPECIFIED 11/14/2018 DANY, CRISTI E MULTI LINE CLAIMS ADJUSTER Ot G47.10 HYPERSOMNIA, UNSPECIFIED 11/14/2018 DANY, CRISTI E MULTI LINE CLAIMS ADJUSTER Ot G47.36 SLEEP RELATED HYPOVENTILATION IN CONDITI 11/14/2018 CRISTI SAENZ MULTI LINE CLAIMS ADJUSTER Ot G47.50 PARASOMNIA, UNSPECIFIED 12/17/2018 YULISSA RASHID MD Ot D50. 0 IRON DEFICIENCY ANEMIA SECONDARY TO BLOO 12/17/2018 YULISSA RASHID MD Ot E11. 9 TYPE 2 DIABETES MELLITUS WITHOUT COMPLIC 12/17/2018 YULISSA RASHID MD, Ot E66. 9 OBESITY, UNSPECIFIED 12/17/2018 YULISSA RASHID MD Ot E78. 00 PURE HYPERCHOLESTEROLEMIA, UNSPECIFIED 12/17/2018 YULISSA RASHID MD Ot I10 ESSENTIAL (PRIMARY) HYPERTENSION 12/17/2018 YULISSA RASHID MD, Ot I25. 10 ATHSCL HEART DISEASE OF [place] CORONARY 12/17/2018 YULISSA RASHID MD Ot I25. 5 ISCHEMIC CARDIOMYOPATHY 12/17/2018 YULISSA RASHID MD Ot I48. 2 CHRONIC ATRIAL FIBRILLATION 12/17/2018 YULISSA RASHID MD Ot I50. 23 ACUTE ON CHRONIC SYSTOLIC (CONGESTIVE) H 12/17/2018 YULISSA RASHID MD, Ot J44. 9 CHRONIC OBSTRUCTIVE PULMONARY DISEASE, U 12/17/2018 YULISSA RASHID MD, Ot K21. 9 GASTRO-ESOPHAGEAL REFLUX DISEASE WITHOUT 12/17/2018 YULISSA RASHID MD, Ot Z68. 37 BODY MASS INDEX (BMI) 37.0-37.9, ADULT 12/17/2018 YULISSA RASHID MD, Ot Z79. 01 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 ANTICOAGULANT 12/17/2018 YULISSA RASHID MD, Ot Z79. 82 HALFWAY (CURRENT) USE OF ASPIRIN 12/17/2018 YULISSA RASHID MD, Ot Z79.899 OTHER HALFWAY (CURRENT) DRUG THERAPY 12/17/2018 YULISSA RASHID MD, Ot Z95. 1 PRESENCE OF AORTOCORONARY BYPASS GRAFT 12/17/2018 YULISSA RASHID MD, Ot Z95. 2 PRESENCE OF PROSTHETIC HEART VALVE 12/18/2018 YULISSA RASHID MD, Ot D50. 0 IRON DEFICIENCY ANEMIA SECONDARY TO BLOO 12/18/2018 YULISSA RASHID MD, Ot E11. 9 TYPE 2 DIABETES MELLITUS WITHOUT COMPLIC 12/18/2018 YULISSA RASHID MD, Ot E66. 9 OBESITY, UNSPECIFIED 12/18/2018 YULISSA RASHID MD, Ot E78. 00 PURE HYPERCHOLESTEROLEMIA, UNSPECIFIED 12/18/2018 YULISSA RASHID MD, Ot I10 ESSENTIAL (PRIMARY) HYPERTENSION 12/18/2018 YULISSA RASHID MD, Ot I25. 10 ATHSCL HEART DISEASE OF [place] CORONARY 12/18/2018 YULISSA RASHID MD, Ot I25. 5 ISCHEMIC CARDIOMYOPATHY 12/18/2018 YULISSA RASHID MD, Ot I48. 2 CHRONIC ATRIAL FIBRILLATION 12/18/2018 YULISSA RASHID MD, Ot I50. 23 ACUTE ON CHRONIC SYSTOLIC (CONGESTIVE) H 12/18/2018 YULISSA RASHID MD, Ot J44. 9 CHRONIC OBSTRUCTIVE PULMONARY DISEASE, U 12/18/2018 YULISSA RASHID MD, Ot K21. 9 GASTRO-ESOPHAGEAL REFLUX DISEASE WITHOUT 12/18/2018 YULISSA RASHID MD, Ot Z68. 37 BODY MASS INDEX (BMI) 37.0-37.9, ADULT 12/18/2018 YULISSA RASHID MD, Ot Z79. 01 HALFWAY (CURRENT) USE OF ANTICOAGULANT 12/18/2018 YULISSA RASHID MD, Ot Z79. 82 HALFWAY (CURRENT) USE OF ASPIRIN 12/18/2018 YULISSA RASHID MD, Ot Z79.899 OTHER HALFWAY (CURRENT) DRUG THERAPY 12/18/2018 YULISSA RASHID MD, Ot Z95. 1 PRESENCE OF AORTOCORONARY BYPASS GRAFT 12/18/2018 YULISSA RASHID MD, Ot Z95. 2 PRESENCE OF PROSTHETIC HEART VALVE 04/09/2019 XUN MD, BORGES-GIANNA Ot D50. 0 IRON DEFICIENCY ANEMIA SECONDARY TO BLOO 04/09/2019 YULISSA RASHID MD Ot E11. 9 TYPE 2 DIABETES MELLITUS WITHOUT COMPLIC 04/09/2019 YULISSA RASHID MD, Ot E66. 9 OBESITY, UNSPECIFIED 04/09/2019 YULISSA RASHID MD, Ot E78. 00 PURE HYPERCHOLESTEROLEMIA, UNSPECIFIED 04/09/2019 YULISSA RASHID MD Ot I10 ESSENTIAL (PRIMARY) HYPERTENSION 04/09/2019 YULISSA RASHID MD, Ot I25. 10 ATHSCL HEART DISEASE OF [place] CORONARY 04/09/2019 YULISSA RASHID MD, Ot I25. 5 ISCHEMIC CARDIOMYOPATHY 04/09/2019 YULISSA RASHID MD, Ot I48. 2 CHRONIC ATRIAL FIBRILLATION * DO NOT USE 04/09/2019 YULISSA RASHID MD, Ot I50. 23 ACUTE ON CHRONIC SYSTOLIC (CONGESTIVE) H 04/09/2019 YULISSA RASHID MD, Ot J44. 9 CHRONIC OBSTRUCTIVE PULMONARY DISEASE, U 04/09/2019 YULISSA RASHID MD, Ot K21. 9 GASTRO-ESOPHAGEAL REFLUX DISEASE WITHOUT 04/09/2019 YULISSA RASHID MD, Ot Z68. 37 BODY MASS INDEX (BMI) 37.0-37.9, ADULT 04/09/2019 YULISSA RASHID MD, Ot Z79. 01 HALFWAY (CURRENT) USE OF ANTICOAGULANT 04/09/2019 YULISSA RASHID MD, Ot Z79. 82 HALFWAY (CURRENT) USE OF ASPIRIN 04/09/2019 YULISSA RASHID MD, Ot Z79.899 OTHER 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 (CURRENT) DRUG THERAPY 04/09/2019 YULISSA RASHID MD, Ot Z95. 1 PRESENCE OF AORTOCORONARY BYPASS GRAFT 04/09/2019 YULISSA RASHID MD, Ot Z95. 2 PRESENCE OF PROSTHETIC HEART VALVE 04/09/2019 ISREAL SMITH FACC, ALI FACP CCDS Ot E66.9 OBESITY, UNSPECIFIED 04/09/2019 ISREAL SMITH FACC, ALI FACP CCDS Ot I25.10 ATHSCL HEART DISEASE OF [place] CORONARY 04/09/2019 ISREAL SMITH FACC, ALI FACP CCDS Ot I48.2 CHRONIC ATRIAL FIBRILLATION 04/09/2019 ISREAL SMITH FACC, ALI FACP CCDS Ot I73.9 PERIPHERAL VASCULAR DISEASE, UNSPECIFIED 04/09/2019 ISREAL SMITH [facility], ALI FACP CCDS Ot Z86.79 PERSONAL HISTORY OF OTHER DISEASES OF TH 04/09/2019 ISREAL SMITH [facility], ALI FACP CCDS Ot E66.9 OBESITY, UNSPECIFIED 04/09/2019 ISREAL SMITH [facility], ALI FACP CCDS Ot I25.10 ATHSCL HEART DISEASE OF [place] CORONARY 04/09/2019 ISREAL SMITH [facility], ALI FACP CCDS Ot I48.2 CHRONIC ATRIAL FIBRILLATION 04/09/2019 ISREAL SMITH [facility], ALI FACP CCDS Ot I73.9 PERIPHERAL VASCULAR DISEASE, UNSPECIFIED 04/09/2019 ISREAL SMITH [facility], ALI FACP CCDS Ot R06.02 SHORTNESS OF BREATH 04/09/2019 ISREAL SMITH [facility], ALI FACP CCDS Ot Z86.79 PERSONAL HISTORY OF OTHER DISEASES OF TH 04/09/2019 JOSH SNEED ACTIVE DIRECTORY SYSTEMS ADMINISTRATOR Ot I08.1 RHEUMATIC DISORDERS OF BOTH MITRAL AND T 04/09/2019 JOSH SNEED ACTIVE DIRECTORY SYSTEMS ADMINISTRATOR Ot I25.10 ATHSCL HEART DISEASE OF [place] CORONARY 04/09/2019 NAREN JOSH L ACTIVE DIRECTORY SYSTEMS ADMINISTRATOR Ot I25.5 ISCHEMIC CARDIOMYOPATHY 04/09/2019 JOSH SNEED L ACTIVE DIRECTORY SYSTEMS ADMINISTRATOR Ot I48.2 CHRONIC ATRIAL FIBRILLATION 04/09/2019 NAREN JOSH L ACTIVE DIRECTORY SYSTEMS ADMINISTRATOR Ot 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 04/09/2019 CRISTI SAENZ MULTI LINE CLAIMS ADJUSTER Ot E66.09 OTHER OBESITY DUE TO EXCESS CALORIES 04/09/2019 CRISTI SAENZ MULTI LINE CLAIMS ADJUSTER Ot G47.10 HYPERSOMNIA, UNSPECIFIED 04/09/2019 CRISTI SAENZ MULTI LINE CLAIMS ADJUSTER Ot J44.9 CHRONIC OBSTRUCTIVE PULMONARY DISEASE, U 04/09/2019 CRISTI SAENZ MULTI LINE CLAIMS ADJUSTER Ot J98.4 OTHER DISORDERS OF LUNG 04/09/2019 CRISTI SAENZ MULTI LINE CLAIMS ADJUSTER Ot R06.02 SHORTNESS OF BREATH 04/09/2019 CRISTI SAENZ MULTI LINE CLAIMS ADJUSTER Ot R09.02 HYPOXEMIA 04/09/2019 FARHAD SAENZINE E MULTI LINE CLAIMS ADJUSTER Ot R91.8 OTHER NONSPECIFIC ABNORMAL FINDING OF [place] 04/09/2019 CRISTI SAENZ MULTI LINE CLAIMS ADJUSTER Ot E66.09 OTHER OBESITY DUE TO EXCESS CALORIES 04/09/2019 CRISTI SAENZ MULTI LINE CLAIMS ADJUSTER Ot G47.10 HYPERSOMNIA, UNSPECIFIED 04/09/2019 CRISTI SAENZ APRN Ot I51.7 CARDIOMEGALY 04/09/2019 CRISTI SAENZ APRN Ot J44.9 CHRONIC OBSTRUCTIVE PULMONARY DISEASE, U 04/09/2019 CRISTI SAENZ APRN Ot J98.11 ATELECTASIS 04/09/2019 CRISTI SAENZ APRN Ot J98.4 OTHER DISORDERS OF LUNG 04/09/2019 CRISTI SAENZ APRN Ot M43.8X4 OTHER SPECIFIED DEFORMING DORSOPATHIES, 04/09/2019 CRISTI SAENZ APRN Ot M47.814 SPONDYLOSIS W/O MYELOPATHY OR RADICULOPA 04/09/2019 CRISTI SAENZ APRN Ot M84.48XK PATHOLOGICAL FRACTURE, OT SITE, SUBS FO 04/09/2019 CRISTI SAENZ APRN Ot R91.1 SOLITARY PULMONARY NODULE 04/09/2019 CRISTI SAENZ APRN Ot Z95.2 PRESENCE OF PROSTHETIC HEART VALVE 04/09/2019 CRISTI SAENZ APRN Ot Z98.890 OTHER SPECIFIED POSTPROCEDURAL STATES 04/09/2019 Ot 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 0 IRON DEFICIENCY ANEMIA SECONDARY TO BLOO 04/11/2019 YULISSA RASHID MD Ot E11. 9 TYPE 2 DIABETES MELLITUS WITHOUT COMPLIC 04/11/2019 YULISSA RASHID MD Ot E66. 9 OBESITY, UNSPECIFIED 04/11/2019 YULISSA RASHID MD Ot E78. 00 PURE HYPERCHOLESTEROLEMIA, UNSPECIFIED 04/11/2019 YULISSA RASHID MD Ot I10 ESSENTIAL (PRIMARY) HYPERTENSION 04/11/2019 YULISSA RASHID MD Ot I25. 10 ATHSCL HEART DISEASE OF [place] CORONARY 04/11/2019 YULISSA RASHID MD Ot I25. 5 ISCHEMIC CARDIOMYOPATHY 04/11/2019 YULISSA RASHID MD Ot I48. 20 CHRONIC ATRIAL FIBRILLATION, UNSPECIFIED 04/11/2019 YULISSA RASHDI MD Ot I50. 23 ACUTE ON CHRONIC SYSTOLIC (CONGESTIVE) H 04/11/2019 YULISSA RASHID MD, Ot J44. 9 CHRONIC OBSTRUCTIVE PULMONARY DISEASE, U 04/11/2019 YULISSA RASHID MD, Ot K21. 9 GASTRO-ESOPHAGEAL REFLUX DISEASE WITHOUT 04/11/2019 YULISSA RASHID MD, Ot Z68. 37 BODY MASS INDEX (BMI) 37.0-37.9, ADULT 04/11/2019 YULISSA RASHID MD, Ot Z79. 01 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 ANTICOAGULANT 04/11/2019 YULISSA RASHID MD, Ot Z79. 82 HALFWAY (CURRENT) USE OF ASPIRIN 04/11/2019 YULISSA RASHID MD, Ot Z79.899 OTHER HALFWAY (CURRENT) DRUG THERAPY 04/11/2019 YULISSA RASHID MD, Ot Z95. 1 PRESENCE OF AORTOCORONARY BYPASS GRAFT 04/11/2019 YULISSA RASHID MD, Ot Z95. 2 PRESENCE OF PROSTHETIC HEART VALVE 05/13/2019 YULISSA RASHID MD, Ot D50. 0 IRON DEFICIENCY ANEMIA SECONDARY TO BLOO 05/13/2019 YULISSA RASHID MD Ot E11. 9 TYPE 2 DIABETES MELLITUS WITHOUT COMPLIC 05/13/2019 YULISSA RASHID MD, Ot E66. 9 OBESITY, UNSPECIFIED 05/13/2019 YULISSA RASHID MD, Ot E78. 00 PURE HYPERCHOLESTEROLEMIA, UNSPECIFIED 05/13/2019 YULISSA RASHID MD, Ot I10 ESSENTIAL (PRIMARY) HYPERTENSION 05/13/2019 YULISSA RASHID MD, Ot I25. 10 ATHSCL HEART DISEASE OF [place] CORONARY 05/13/2019 YULISSA RASHID MD, Ot I25. 5 ISCHEMIC CARDIOMYOPATHY 05/13/2019 YULISSA RASHID MD, Ot I48. 20 CHRONIC ATRIAL FIBRILLATION, UNSPECIFIED 05/13/2019 YULISSA RASHID MD, Ot I50. 23 ACUTE ON CHRONIC SYSTOLIC (CONGESTIVE) H 05/13/2019 YULISSA RASHID MD, Ot J44. 9 CHRONIC OBSTRUCTIVE PULMONARY DISEASE, U 05/13/2019 YULISSA RASHID MD, Ot K21. 9 GASTRO-ESOPHAGEAL REFLUX DISEASE WITHOUT 05/13/2019 YULISSA RASHID MD, Ot Z68. 37 BODY MASS INDEX (BMI) 37.0-37.9, ADULT 05/13/2019 YULISSA RASHID MD, Ot Z79. 01 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 ANTICOAGULANT 05/13/2019 YULISSA RASHID MD Ot Z79. 82 HALFWAY (CURRENT) USE OF ASPIRIN 05/13/2019 YULISSA RASHID MD Ot Z79.899 OTHER HALFWAY (CURRENT) DRUG THERAPY 05/13/2019 YULISSA RASHID MD Ot Z95. 1 PRESENCE OF AORTOCORONARY BYPASS GRAFT 05/13/2019 YULISSA RASHID MD Ot Z95. 2 PRESENCE OF PROSTHETIC HEART VALVE 05/15/2019 ISREAL SMITH FACC, ALI FACP CCDS Ot E78.5 HYPERLIPIDEMIA, UNSPECIFIED 05/15/2019 ISREAL SMITH FACC, ALI FACP CCDS Ot I08.1 RHEUMATIC DISORDERS OF BOTH MITRAL AND T 05/15/2019 ISREAL SMITH FACC, ALI FACP CCDS Ot I11.0 HYPERTENSIVE HEART DISEASE WITH HEART FA 05/15/2019 ISREAL CHASEC, ALI FACP CCDS Ot I25.10 ATHSCL HEART DISEASE OF [place] CORONARY 05/15/2019 ISREAL SMITH FACC, ALI FACP CCDS Ot I27.21 SECONDARY PULMONARY ARTERIAL HYPERTENSIO 05/15/2019 ISREAL SMITH FACC, ALI FACP CCDS Ot I50.43 ACUTE ON CHRONIC COMBINED SYSTOLIC AND D 05/15/2019 ISREAL CHASEC, ALI FACP CCDS Ot I77.89 OTHER SPECIFIED DISORDERS OF ARTERIES AN 05/15/2019 ISREAL SMITH FACC, ALI FACP CCDS Ot Z87.891 PERSONAL HISTORY OF NICOTINE DEPENDENCE 05/16/2019 ISREAL SMITH FACC, ALI FACP CCDS Ot E78.5 HYPERLIPIDEMIA, UNSPECIFIED 05/16/2019 ISREAL SMITH FACC, ALI FACP CCDS Ot I11.0 HYPERTENSIVE HEART DISEASE WITH HEART FA 05/16/2019 ISREAL CHASEC, ALI FACP CCDS Ot I25.10 ATHSCL HEART DISEASE OF [place] CORONARY 05/16/2019 ISREAL SMITH FACC, ALI FACP CCDS Ot I25.5 ISCHEMIC CARDIOMYOPATHY 05/16/2019 ISREAL SMITH FACC, ALI FACP CCDS Ot I27.21 SECONDARY PULMONARY ARTERIAL HYPERTENSIO 05/16/2019 ISREAL SMITH FACC, ALI FACP CCDS Ot I34.0 NONRHEUMATIC MITRAL (VALVE) INSUFFICIENC 05/16/2019 ISREAL CHASEC, ALI FACP CCDS Ot I35.0 NONRHEUMATIC AORTIC (VALVE) STENOSIS 05/16/2019 ISREAL SMITH FACC, ALI FACP CCDS Ot I50.43 ACUTE ON CHRONIC COMBINED SYSTOLIC AND D 05/16/2019 ISREAL SMITH FACC, ALI FACP CCDS Ot I51.89 OTHER ILL-DEFINED HEART DISEASES 05/16/2019 ISREAL SMITH FACC, ALI FACP CCDS Ot I65.29 OCCLUSION AND STENOSIS OF UNSPECIFIED CA 05/16/2019 ISREAL SMITH FACC, ALI FACP CCDS Ot Z86.79 PERSONAL HISTORY OF OTHER DISEASES OF TH 05/16/2019 ISREAL SMITH FACC, ALI FACP CCDS Ot Z87.891 PERSONAL HISTORY OF NICOTINE DEPENDENCE 09/25/2019 YULISSA RASHID MD Ot D50. 0 IRON DEFICIENCY ANEMIA SECONDARY TO BLOO 09/25/2019 YULISSA RASHID MD Ot E78. 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 0 HYPERTENSIVE HEART DISEASE WITH HEART FA 09/25/2019 YULISSA RASHID MD Ot I25. 10 ATHSCL HEART DISEASE OF [place] CORONARY 09/25/2019 YULISSA RASHID MD Ot I25. 5 ISCHEMIC CARDIOMYOPATHY 09/25/2019 YULISSA RASHID MD Ot I27. 21 SECONDARY PULMONARY ARTERIAL HYPERTENSIO 09/25/2019 YULISSA RASHID MD Ot I50. 43 ACUTE ON CHRONIC COMBINED SYSTOLIC AND D 09/25/2019 YULISSA RASHID MD Ot I65. 29 OCCLUSION AND STENOSIS OF UNSPECIFIED CA 09/25/2019 YULISSA RASHID MD Ot Z87.891 PERSONAL HISTORY OF NICOTINE DEPENDENCE 09/30/2019 ISREAL CHASEC, MARCK FACP CCDS Ot E78.5 HYPERLIPIDEMIA, UNSPECIFIED 09/30/2019 ISREAL SMITH [place], ALI FACP CCDS Ot I11.0 HYPERTENSIVE HEART DISEASE WITH HEART FA 09/30/2019 ISREAL SMITH FACC, ALI FACP CCDS Ot I25.10 ATHSCL HEART DISEASE OF [place] CORONARY 09/30/2019 ISREAL SMITH FACC, ALI FACP CCDS Ot I25.5 ISCHEMIC CARDIOMYOPATHY 09/30/2019 ISREAL SMITH FACC, ALI FACP CCDS Ot I27.21 SECONDARY PULMONARY ARTERIAL HYPERTENSIO 09/30/2019 ISREAL SMITH [facility], ALI FACP CCDS Ot I34.0 NONRHEUMATIC MITRAL (VALVE) INSUFFICIENC 09/30/2019 ISREAL MSITH [facility], ALI FACP CCDS Ot I35.0 NONRHEUMATIC AORTIC (VALVE) STENOSIS 09/30/2019 ISREAL SMITH [facility], ALI FACP CCDS Ot I50.43 ACUTE ON CHRONIC COMBINED SYSTOLIC AND D 09/30/2019 ISREAL SMITH [facility], ALI FACP CCDS Ot I51.89 OTHER ILL-DEFINED HEART DISEASES 09/30/2019 ISREAL SMITH [facility], ALI FACP CCDS Ot I65.29 OCCLUSION AND STENOSIS OF UNSPECIFIED CA 09/30/2019 ISREAL SMITH [facility], ALI FACP CCDS Ot Z86.79 PERSONAL HISTORY OF OTHER DISEASES OF TH 09/30/2019 ISREAL SMITH [facility], ALI FACP CCDS Ot Z87.891 PERSONAL HISTORY OF NICOTINE DEPENDENCE Procedures There is no data. Results Test Result Range Automated blood complete blood count (he mogram) panel - 03/01/16 07:25 Blood leukocytes automated count (number/volume) 6.0 10*3/uL 4.3-11.0 Blood erythrocytes automated count (number/volume) 4.17 10*6/uL 4.35-5.85 Venous blood hemoglobin measurement (mass/volume) 13.5 g/dL 13.3-17.7 Blood hematocrit (volume fraction) 42 % 40-54 Automated erythrocyte mean corpuscular volume 100 [foz_us] 80-99 Automated erythrocyte mean corpuscular h emoglobin (mass per erythrocyte) 32 pg 25-34 Automated erythrocyte mean corpuscular h emoglobin concentration measurement (mass/volume) 33 g/dL 32-36 Automated erythrocyte distribution width ratio 13. 7 % 10.0- 14.5 Automated blood platelet count (count/volume) 157 10*3/uL 130-400 Automated blood platelet mean volume measurement 11.0 [foz_us] 7.4-10.4 PT panel in platelet poor plasma by coag ulation assay - 03/01/16 07:25 Prothrombin time (PT) in platelet poor plasma by coagu lation assay 13.2 s 12.2-14.7 INR in platelet poor plasma or blood by coagulation as say 1.0 0.8-1.4 Activated partial thromboplastin time (a PTT) in platelet poor plasma bycoagulation assay - 03/01/16 07:25 Activated partial thromboplastin time (a PTT) in platelet poor plasma bycoagulation assay 29 s 24-35 Comprehensive metabolic panel - 03/01/16 07:25 Serum or plasma sodium measurement (moles/volume) 138 mmol/L 135-145 Serum or plasma potassium measurement (moles/volume) 4.3 mmol/L 3.6-5.0 Serum or plasma chloride measurement (moles/volume) 104 mmol/L 98-107 Carbon dioxide 22 mmol/L 21-32 Serum or plasma anion gap determination (moles/volume) 12 mmol/L 5-14 Serum or plasma urea nitrogen measurement (mass/volume ) 21 mg/dL 7-18 Serum or plasma creatinine measurement (mass/volume) 1.60 mg/dL 0.60-1.30 Serum or plasma urea nitrogen/creatinine mass ratio 13 NRG Serum or plasma creatinine measurement w ith calculation of estimated glomerular filtration rate 42 NRG Serum or plasma glucose measurement (mass/volume) 105 mg/dL 70-105 Serum or plasma calcium measurement (mass/volume) 9.7 mg/dL 8.5-10.1 Serum or plasma total bilirubin measurement (mass/volu me) 0.5 mg/dL 0.1-1.0 Serum or plasma alkaline phosphatase wilder surement (enzymatic activity/volume) 53 U/L 40-136 Serum or plasma aspartate aminotransfera se measurement (enzymatic activity/volume) 38 U/L 5-34 Serum or plasma alanine aminotransferase measurement (enzymatic activity/volume) 24 U/L 0-55 Serum or plasma protein measurement (mass/volume) 6.6 g/dL 6.4-8.2 Serum or plasma albumin measurement (mass/volume) 4.2 g/dL 3.2-4.5 Lipid 1996 panel - 03/01/16 07:25 Serum or plasma triglyceride measurement (mass/volume) 83 mg/dL <150 Serum or plasma cholesterol measurement (mass/volume) 162 mg/dL < 200 Serum or plasma cholesterol in HDL measurement (mass/v olume) 68 mg/dL 40-60 Cholesterol in LDL [mass/volume] in serum or plasma by direct assay 71 mg/dL 1-129 Serum or plasma cholesterol in VLDL measurement (mass/ volume) 17 mg/dL 5-40 Methicillin resistant Staphylococcus aur eus (MRSA) screening culture - 03/01/16 07:25 Methicillin resistant Staphylococcus aureus (MRSA) scr eening culture NEG NRG Whole blood basic metabolic panel - 02/17 08/02 15:55 Serum or plasma sodium measurement (moles/volume) 136 mmol/L 135-145 Serum or plasma potassium measurement (moles/volume) 3.9 mmol/L 3.6-5.0 Serum or plasma chloride measurement (moles/volume) 100 mmol/L 98-107 Carbon dioxide 25 mmol/L 21-32 Serum or plasma anion gap determination (moles/volume) 11 mmol/L 5-14 Serum or plasma urea nitrogen measurement (mass/volume ) 23 mg/dL 7-18 Serum or plasma creatinine measurement (mass/volume) 1.49 mg/dL 0.60-1.30 Serum or plasma urea nitrogen/creatinine mass ratio 15 NRG Serum or plasma creatinine measurement w ith calculation of estimated glomerular filtration rate 46 NRG Serum or plasma glucose measurement (mass/volume) 104 mg/dL 70-105 Serum or plasma calcium measurement (mass/volume) 9.5 mg/dL 8.5-10.1 Complete blood count (CBC) with automate d white blood cell (WBC) differential - 03/31/16 18:11 Blood leukocytes automated count (number/volume) 8.7 10*3/uL 4.3-11.0 Blood erythrocytes automated count (number/volume) 4.00 10*6/uL 4.35-5.85 Venous blood hemoglobin measurement (mass/volume) 13.2 g/dL 13.3-17.7 Blood hematocrit (volume fraction) 40 % 40-54 Automated erythrocyte mean corpuscular volume 100 [foz_us] 80-99 Automated erythrocyte mean corpuscular h emoglobin (mass per erythrocyte) 33 pg 25-34 Automated erythrocyte mean corpuscular h emoglobin concentration measurement (mass/volume) 33 g/dL 32-36 Automated erythrocyte distribution width ratio 13. 8 % 10.0- 14.5 Automated blood platelet count (count/volume) 133 10*3/uL 130-400 Automated blood platelet mean volume measurement 11.5 [foz_us] 7.4-10.4 Automated blood neutrophils/100 leukocytes 68 % 42-75 Automated blood lymphocytes/100 leukocytes 14 % 12-44 Blood monocytes/100 leukocytes 16 % 0-12 Automated blood eosinophils/100 leukocytes 2 % 0-10 Automated blood basophils/100 leukocytes 1 % 0-10 Blood neutrophils automated count (number/volume) 5.9 10*3 1.8-7.8 Blood lymphocytes automated count (number/volume) 1.2 10*3 1.0-4.0 Blood monocytes automated count (number/volume) 1. 4 10*3 0.0-1.0 Automated eosinophil count 0.2 10*3/uL 0 .0-0.3 Automated blood basophil count (count/volume) 0.0 10*3/uL 0.0-0.1 Blood lactic acid measurement (moles/vol ume) - 03/31/16 18:11 Blood lactic acid measurement (moles/volume) 1.5 m mol/L 0.5- 2.0 Whole blood basic metabolic panel - 03/20 05/06 18:11 Serum or plasma sodium measurement (moles/volume) 132 mmol/L 135-145 Serum or plasma potassium measurement (moles/volume) 3.9 mmol/L 3.6-5.0 Serum or plasma chloride measurement (moles/volume) 97 mmol/L 98-107 Carbon dioxide 22 mmol/L 21-32 Serum or plasma anion gap determination (moles/volume) 13 mmol/L 5-14 Serum or plasma urea nitrogen measurement (mass/volume ) 19 mg/dL 7-18 Serum or plasma creatinine measurement (mass/volume) 1.13 mg/dL 0.60-1.30 Serum or plasma urea nitrogen/creatinine mass ratio 17 NRG Serum or plasma creatinine measurement w ith calculation of estimated glomerular filtration rate > NRG Serum or plasma glucose measurement (mass/volume) 98 mg/dL 70-105 Serum or plasma calcium measurement (mass/volume) 9.1 mg/dL 8.5-10.1 Bacterial blood culture - 03/31/16 18:11 Bacterial blood culture NG NRG Arterial blood gas measurement - 7 18:17 Blood pCO2 40 mm[Hg] 35-45 Blood pO2 90 mm[Hg] 79-93 Arterial blood bicarbonate measurement (moles/volume) 24 mmol/L 23-27 Arterial blood base excess by calculation -0.3 mmo l/L -2.5-2.5 Arterial blood oxygen saturation measurement 97 % 94-100 * Inhaled oxygen flow rate 3L NRG Arterial blood pH measurement with patient temperature correction 7.40 7.37-7.43 Arterial blood carbon dioxide, total measurement (mole s/volume) 25.2 mmol/L 21.0-31.0 Body site RT IEHSA NRG Assessment of wrist artery patency prior to arterial p uncture YES-POS NRG Setting of ventilation mode NO NR G Measurement of body temperature 100.3 NRG Bacterial blood culture - 03/31/16 18:21 Bacterial blood culture NG NRG Capillary blood glucose measurement by g lucometer (mass/volume) - 03/31/16 20:46 Capillary blood glucose measurement by glucometer (mas s/volume) 156 mg/dL 70-110 Serum or plasma gentamicin measurement ( mass/volume) - 04/01/16 07:17 Serum or plasma gentamicin measurement (mass/volume) 3.7 ug/mL <=10.0 PT panel in platelet poor plasma by coag ulation assay - 04/01/16 07:17 Prothrombin time (PT) in platelet poor plasma by coagu lation assay 19.2 s 12.2-14.7 INR in platelet poor plasma or blood by coagulation as say 1.6 0.8-1.4 PT panel in platelet poor plasma by coag ulation assay - 04/02/16 05:01 Prothrombin time (PT) in platelet poor plasma by coagu lation assay 18.2 s 12.2-14.7 INR in platelet poor plasma or blood by coagulation as say 1.5 0.8-1.4 Complete blood count (CBC) with automate d white blood cell (WBC) differential - 04/02/16 05:01 Blood leukocytes automated count (number/volume) 9.4 10*3/uL 4.3-11.0 Blood erythrocytes automated count (number/volume) 3.61 10*6/uL 4.35-5.85 Venous blood hemoglobin measurement (mass/volume) 11.6 g/dL 13.3-17.7 Blood hematocrit (volume fraction) 36 % 40-54 Automated erythrocyte mean corpuscular volume 99 [ foz_us] 80-99 Automated erythrocyte mean corpuscular h emoglobin (mass per erythrocyte) 32 pg 25-34 Automated erythrocyte mean corpuscular h emoglobin concentration measurement (mass/volume) 32 g/dL 32-36 Automated erythrocyte distribution width ratio 13. 4 % 10.0- 14.5 Automated blood platelet count (count/volume) 121 10*3/uL 130-400 Automated blood platelet mean volume measurement 11.4 [foz_us] 7.4-10.4 Automated blood neutrophils/100 leukocytes 85 % 42-75 Automated blood lymphocytes/100 leukocytes 8 % 12-44 Blood monocytes/100 leukocytes 7 % 0-12 Automated blood eosinophils/100 leukocytes 0 % 0-10 Automated blood basophils/100 leukocytes 0 % 0-10 Blood neutrophils automated count (number/volume) 8.0 10*3 1.8-7.8 Blood lymphocytes automated count (number/volume) 0.7 10*3 1.0-4.0 Blood monocytes automated count (number/volume) 0. 6 10*3 0.0-1.0 Automated eosinophil count 0.0 10*3/uL 0 .0-0.3 Automated blood basophil count (count/volume) 0.0 10*3/uL 0.0-0.1 Comprehensive metabolic panel - 04/02/16 05:01 Serum or plasma sodium measurement (moles/volume) 134 mmol/L 135-145 Serum or plasma potassium measurement (moles/volume) 4.9 mmol/L 3.6-5.0 Serum or plasma chloride measurement (moles/volume) 100 mmol/L 98-107 Carbon dioxide 23 mmol/L 21-32 Serum or plasma anion gap determination (moles/volume) 11 mmol/L 5-14 Serum or plasma urea nitrogen measurement (mass/volume ) 26 mg/dL 7-18 Serum or plasma creatinine measurement (mass/volume) 0.96 mg/dL 0.60-1.30 Serum or plasma urea nitrogen/creatinine mass ratio 27 NRG Serum or plasma creatinine measurement w ith calculation of estimated glomerular filtration rate > NRG Serum or plasma glucose measurement (mass/volume) 152 mg/dL 70-105 Serum or plasma calcium measurement (mass/volume) 8.8 mg/dL 8.5-10.1 Serum or plasma total bilirubin measurement (mass/volu me) 0.5 mg/dL 0.1-1.0 Serum or plasma alkaline phosphatase wilder surement (enzymatic activity/volume) 41 U/L 40-136 Serum or plasma aspartate aminotransfera se measurement (enzymatic activity/volume) 53 U/L 5-34 Serum or plasma alanine aminotransferase measurement (enzymatic activity/volume) 29 U/L 0-55 Serum or plasma protein measurement (mass/volume) 6.2 g/dL 6.4-8.2 Serum or plasma albumin measurement (mass/volume) 3.8 g/dL 3.2-4.5 Complete urinalysis with reflex to cultu re - 04/02/16 12:36 Urine color determination YELLOW NRG Urine clarity determination CLEAR NR G Urine pH measurement by test strip 5 5-9 Specific gravity of urine by test strip 1.005 1.016-1.022 Urine protein assay by test strip, semi-quantitative NEGATIVE NEGATIVE Urine glucose detection by automated test strip NE GATIVE NEGATIVE Erythrocytes detection in urine sediment by light micr oscopy NEGATIVE NEGATIVE Urine ketones detection by automated test strip NE GATIVE NEGATIVE Urine nitrite detection by test strip NEGATIVE NEGATIVE Urine total bilirubin detection by test strip NEGA TIVE NEGATIVE Urine urobilinogen measurement by automated test strip (mass/volume) NORMAL NORMAL Urine leukocyte esterase detection by dipstick NEG ATIVE NEGATIVE Automated urine sediment erythrocyte cou nt by microscopy (number/high power field) NONE NRG Automated urine sediment leukocyte count by microscopy (number/high power field) NONE NRG Bacteria detection in urine sediment by light microsco py NONE NRG Squamous epithelial cells detection in u rine sediment by light microscopy RARE NRG Crystals detection in urine sediment by light microsco py NONE NRG Casts detection in urine sediment by light microscopy NONE NRG Mucus detection in urine sediment by light microscopy NEGATIVE NRG Complete urinalysis with reflex to culture NO NRG Whole blood basic metabolic panel - 03/20 09/03 06:47 Serum or plasma sodium measurement (moles/volume) 134 mmol/L 135-145 Serum or plasma potassium measurement (moles/volume) 4.2 mmol/L 3.6-5.0 Serum or plasma chloride measurement (moles/volume) 95 mmol/L 98-107 Carbon dioxide 30 mmol/L 21-32 Serum or plasma anion gap determination (moles/volume) 9 mmol/L 5-14 Serum or plasma urea nitrogen measurement (mass/volume ) 34 mg/dL 7-18 Serum or plasma creatinine measurement (mass/volume) 1.05 mg/dL 0.60-1.30 Serum or plasma urea nitrogen/creatinine mass ratio 32 NRG Serum or plasma creatinine measurement w ith calculation of estimated glomerular filtration rate > NRG Serum or plasma glucose measurement (mass/volume) 134 mg/dL 70-105 Serum or plasma calcium measurement (mass/volume) 8.9 mg/dL 8.5-10.1 PT panel in platelet poor plasma by coag ulation assay - 04/04/16 06:47 Prothrombin time (PT) in platelet poor plasma by coagu lation assay 36.0 s 12.2-14.7 INR in platelet poor plasma or blood by coagulation as say 3.6 0.8-1.4 PT panel in platelet poor plasma by coag ulation assay - 04/05/16 04:25 Prothrombin time (PT) in platelet poor plasma by coagu lation assay 52.1 s 12.2-14.7 INR in platelet poor plasma or blood by coagulation as say 5.7 0.8-1.4 Complete blood count (CBC) with automate d white blood cell (WBC) differential - 05/21/16 14:10 Blood leukocytes automated count (number/volume) 7.3 10*3/uL 4.3-11.0 Blood erythrocytes automated count (number/volume) 3.32 10*6/uL 4.35-5.85 Venous blood hemoglobin measurement (mass/volume) 10.9 g/dL 13.3-17.7 Blood hematocrit (volume fraction) 34 % 40-54 Automated erythrocyte mean corpuscular volume 101 [foz_us] 80-99 Automated erythrocyte mean corpuscular h emoglobin (mass per erythrocyte) 33 pg 25-34 Automated erythrocyte mean corpuscular h emoglobin concentration measurement (mass/volume) 33 g/dL 32-36 Automated erythrocyte distribution width ratio 13. 3 % 10.0- 14.5 Automated blood platelet count (count/volume) 235 10*3/uL 130-400 Automated blood platelet mean volume measurement 9.9 [foz_us] 7.4-10.4 Automated blood neutrophils/100 leukocytes 65 % 42-75 Automated blood lymphocytes/100 leukocytes 19 % 12-44 Blood monocytes/100 leukocytes 13 % 0-12 Automated blood eosinophils/100 leukocytes 3 % 0-10 Automated blood basophils/100 leukocytes 0 % 0-10 Blood neutrophils automated count (number/volume) 4.7 10*3 1.8-7.8 Blood lymphocytes automated count (number/volume) 1.4 10*3 1.0-4.0 Blood monocytes automated count (number/volume) 1. 0 10*3 0.0-1.0 Automated eosinophil count 0.2 10*3/uL 0 .0-0.3 Automated blood basophil count (count/volume) 0.0 10*3/uL 0.0-0.1 PT panel in platelet poor plasma by coag ulation assay - 05/21/16 14:10 Prothrombin time (PT) in platelet poor plasma by coagu lation assay 28.3 s 12.2-14.7 INR in platelet poor plasma or blood by coagulation as say 2.7 0.8-1.4 Activated partial thromboplastin time (a PTT) in platelet poor plasma bycoagulation assay - 05/21/16 14:10 Activated partial thromboplastin time (a PTT) in platelet poor plasma bycoagulation assay 60 s 24-35 Fibrin D-dimer FEU measurement in platel et poor plasma (mass/volume) - 05/21/16 14:10 Fibrin D-dimer FEU measurement in platelet poor plasma (mass/volume) 0.83 ug/mL 0.00-0.49 Comprehensive metabolic panel - 05/21/16 14:10 Serum or plasma sodium measurement (moles/volume) 137 mmol/L 135-145 Serum or plasma potassium measurement (moles/volume) 3.9 mmol/L 3.6-5.0 Serum or plasma chloride measurement (moles/volume) 100 mmol/L 98-107 Carbon dioxide 27 mmol/L 21-32 Serum or plasma anion gap determination (moles/volume) 10 mmol/L 5-14 Serum or plasma urea nitrogen measurement (mass/volume ) 22 mg/dL 7-18 Serum or plasma creatinine measurement (mass/volume) 1.22 mg/dL 0.60-1.30 Serum or plasma urea nitrogen/creatinine mass ratio 18 NRG Serum or plasma creatinine measurement w ith calculation of estimated glomerular filtration rate 58 NRG Serum or plasma glucose measurement (mass/volume) 111 mg/dL 70-105 Serum or plasma calcium measurement (mass/volume) 8.9 mg/dL 8.5-10.1 Serum or plasma total bilirubin measurement (mass/volu me) 0.4 mg/dL 0.1-1.0 Serum or plasma alkaline phosphatase wilder surement (enzymatic activity/volume) 49 U/L 40-136 Serum or plasma aspartate aminotransfera se measurement (enzymatic activity/volume) 26 U/L 5-34 Serum or plasma alanine aminotransferase measurement (enzymatic activity/volume) 18 U/L 0-55 Serum or plasma protein measurement (mass/volume) 6.5 g/dL 6.4-8.2 Serum or plasma albumin measurement (mass/volume) 3.6 g/dL 3.2-4.5 Magnesium - 05/21/16 14:10 Magnesium 2.1 mg/dL 1.8-2.4 Serum or plasma troponin i.cardiac measu rement (mass/volume) - 05/21/16 14:10 Serum or plasma troponin i.cardiac measurement (mass/v olume) < ng/mL <0.30 Myoglobin, serum - 05/21/16 14:10 Myoglobin, serum 62.2 ng/mL 10.0-92.0 Serum or plasma lithium measurement (mol es/volume) - 05/21/16 14:10 BNP level 287.7 pg/mL <100.0 Complete blood count (CBC) with automate d white blood cell (WBC) differential - 05/22/16 04:10 Blood leukocytes automated count (number/volume) 8.5 10*3/uL 4.3-11.0 Blood erythrocytes automated count (number/volume) 3.36 10*6/uL 4.35-5.85 Venous blood hemoglobin measurement (mass/volume) 10.8 g/dL 13.3-17.7 Blood hematocrit (volume fraction) 34 % 40-54 Automated erythrocyte mean corpuscular volume 100 [foz_us] 80-99 Automated erythrocyte mean corpuscular h emoglobin (mass per erythrocyte) 32 pg 25-34 Automated erythrocyte mean corpuscular h emoglobin concentration measurement (mass/volume) 32 g/dL 32-36 Automated erythrocyte distribution width ratio 13. 3 % 10.0- 14.5 Automated blood platelet count (count/volume) 253 10*3/uL 130-400 Automated blood platelet mean volume measurement 10.1 [foz_us] 7.4-10.4 Automated blood neutrophils/100 leukocytes 66 % 42-75 Automated blood lymphocytes/100 leukocytes 18 % 12-44 Blood monocytes/100 leukocytes 13 % 0-12 Automated blood eosinophils/100 leukocytes 3 % 0-10 Automated blood basophils/100 leukocytes 0 % 0-10 Blood neutrophils automated count (number/volume) 5.6 10*3 1.8-7.8 Blood lymphocytes automated count (number/volume) 1.6 10*3 1.0-4.0 Blood monocytes automated count (number/volume) 1. 1 10*3 0.0-1.0 Automated eosinophil count 0.2 10*3/uL 0 .0-0.3 Automated blood basophil count (count/volume) 0.0 10*3/uL 0.0-0.1 Comprehensive metabolic panel - 05/22/16 04:10 Serum or plasma sodium measurement (moles/volume) 134 mmol/L 135-145 Serum or plasma potassium measurement (moles/volume) 4.0 mmol/L 3.6-5.0 Serum or plasma chloride measurement (moles/volume) 98 mmol/L 98-107 Carbon dioxide 24 mmol/L 21-32 Serum or plasma anion gap determination (moles/volume) 12 mmol/L 5-14 Serum or plasma urea nitrogen measurement (mass/volume ) 20 mg/dL 7-18 Serum or plasma creatinine measurement (mass/volume) 0.93 mg/dL 0.60-1.30 Serum or plasma urea nitrogen/creatinine mass ratio 22 NRG Serum or plasma creatinine measurement w ith calculation of estimated glomerular filtration rate > NRG Serum or plasma glucose measurement (mass/volume) 104 mg/dL 70-105 Serum or plasma calcium measurement (mass/volume) 8.7 mg/dL 8.5-10.1 Serum or plasma total bilirubin measurement (mass/volu me) 0.6 mg/dL 0.1-1.0 Serum or plasma alkaline phosphatase wilder surement (enzymatic activity/volume) 52 U/L 40-136 Serum or plasma aspartate aminotransfera se measurement (enzymatic activity/volume) 23 U/L 5-34 Serum or plasma alanine aminotransferase measurement (enzymatic activity/volume) 15 U/L 0-55 Serum or plasma protein measurement (mass/volume) 6.5 g/dL 6.4-8.2 Serum or plasma albumin measurement (mass/volume) 3.6 g/dL 3.2-4.5 Lipid 1996 panel - 05/22/16 04:10 Serum or plasma triglyceride measurement (mass/volume) 55 mg/dL <150 Serum or plasma cholesterol measurement (mass/volume) 137 mg/dL < 200 Serum or plasma cholesterol in HDL measurement (mass/v olume) 54 mg/dL 40-60 Cholesterol in LDL [mass/volume] in serum or plasma by direct assay 59 mg/dL 1-129 Serum or plasma cholesterol in VLDL measurement (mass/ volume) 11 mg/dL 5-40 Complete blood count (CBC) with automate d white blood cell (WBC) differential - 05/23/16 04:10 Blood leukocytes automated count (number/volume) 8.5 10*3/uL 4.3-11.0 Blood erythrocytes automated count (number/volume) 3.20 10*6/uL 4.35-5.85 Venous blood hemoglobin measurement (mass/volume) 10.5 g/dL 13.3-17.7 Blood hematocrit (volume fraction) 32 % 40-54 Automated erythrocyte mean corpuscular volume 99 [ foz_us] 80-99 Automated erythrocyte mean corpuscular h emoglobin (mass per erythrocyte) 33 pg 25-34 Automated erythrocyte mean corpuscular h emoglobin concentration measurement (mass/volume) 33 g/dL 32-36 Automated erythrocyte distribution width ratio 12. 9 % 10.0- 14.5 Automated blood platelet count (count/volume) 259 10*3/uL 130-400 Automated blood platelet mean volume measurement 10.2 [foz_us] 7.4-10.4 Automated blood neutrophils/100 leukocytes 71 % 42-75 Automated blood lymphocytes/100 leukocytes 16 % 12-44 Blood monocytes/100 leukocytes 11 % 0-12 Automated blood eosinophils/100 leukocytes 2 % 0-10 Automated blood basophils/100 leukocytes 0 % 0-10 Blood neutrophils automated count (number/volume) 6.0 10*3 1.8-7.8 Blood lymphocytes automated count (number/volume) 1.4 10*3 1.0-4.0 Blood monocytes automated count (number/volume) 0. 9 10*3 0.0-1.0 Automated eosinophil count 0.2 10*3/uL 0 .0-0.3 Automated blood basophil count (count/volume) 0.0 10*3/uL 0.0-0.1 PT panel in platelet poor plasma by coag ulation assay - 05/23/16 04:10 Prothrombin time (PT) in platelet poor plasma by coagu lation assay 18.3 s 12.2-14.7 INR in platelet poor plasma or blood by coagulation as say 1.6 0.8-1.4 Whole blood basic metabolic panel - 09/03 04:10 Serum or plasma sodium measurement (moles/volume) 131 mmol/L 135-145 Serum or plasma potassium measurement (moles/volume) 4.3 mmol/L 3.6-5.0 Serum or plasma chloride measurement (moles/volume) 95 mmol/L 98-107 Carbon dioxide 24 mmol/L 21-32 Serum or plasma anion gap determination (moles/volume) 12 mmol/L 5-14 Serum or plasma urea nitrogen measurement (mass/volume ) 22 mg/dL 7-18 Serum or plasma creatinine measurement (mass/volume) 0.98 mg/dL 0.60-1.30 Serum or plasma urea nitrogen/creatinine mass ratio 22 NRG Serum or plasma creatinine measurement w ith calculation of estimated glomerular filtration rate > NRG Serum or plasma glucose measurement (mass/volume) 115 mg/dL 70-105 Serum or plasma calcium measurement (mass/volume) 8.6 mg/dL 8.5-10.1 Magnesium - 05/23/16 04:10 Magnesium 1.9 mg/dL 1.8-2.4 Whole blood basic metabolic panel - 10/03 05:31 Serum or plasma sodium measurement (moles/volume) 130 mmol/L 135-145 Serum or plasma potassium measurement (moles/volume) 4.1 mmol/L 3.6-5.0 Serum or plasma chloride measurement (moles/volume) 93 mmol/L 98-107 Carbon dioxide 25 mmol/L -32 Serum or plasma anion gap determination (moles/volume) 12 mmol/L 5-14 Serum or plasma urea nitrogen measurement (mass/volume ) 24 mg/dL 7-18 Serum or plasma creatinine measurement (mass/volume) 1.01 mg/dL 0.60-1.30 Serum or plasma urea nitrogen/creatinine mass ratio 24 NRG Serum or plasma creatinine measurement w ith calculation of estimated glomerular filtration rate > NRG Serum or plasma glucose measurement (mass/volume) 111 mg/dL 70-105 Serum or plasma calcium measurement (mass/volume) 8.9 mg/dL 8.5-10.1 Magnesium - 05/24/16 05:31 Magnesium 2.1 mg/dL 1.8-2.4 PT panel in platelet poor plasma by coag ulation assay - 05/24/16 05:51 Prothrombin time (PT) in platelet poor plasma by coagu lation assay 18.9 s 12.2-14.7 INR in platelet poor plasma or blood by coagulation as say 1.6 0.8-1.4 PT panel in platelet poor plasma by coag ulation assay - 05/25/16 05:09 Prothrombin time (PT) in platelet poor plasma by coagu lation assay 20.9 s 12.2-14.7 INR in platelet poor plasma or blood by coagulation as say 1.8 0.8-1.4 Comprehensive metabolic panel - 05/25/16 05:09 Serum or plasma sodium measurement (moles/volume) 130 mmol/L 135-145 Serum or plasma potassium measurement (moles/volume) 4.4 mmol/L 3.6-5.0 Serum or plasma chloride measurement (moles/volume) 95 mmol/L 98-107 Carbon dioxide 25 mmol/L 21-32 Serum or plasma anion gap determination (moles/volume) 10 mmol/L 5-14 Serum or plasma urea nitrogen measurement (mass/volume ) 23 mg/dL 7-18 Serum or plasma creatinine measurement (mass/volume) 1.03 mg/dL 0.60-1.30 Serum or plasma urea nitrogen/creatinine mass ratio 22 NRG Serum or plasma creatinine measurement w ith calculation of estimated glomerular filtration rate > NRG Serum or plasma glucose measurement (mass/volume) 115 mg/dL 70-105 Serum or plasma calcium measurement (mass/volume) 8.9 mg/dL 8.5-10.1 Serum or plasma total bilirubin measurement (mass/volu me) 0.4 mg/dL 0.1-1.0 Serum or plasma alkaline phosphatase wilder surement (enzymatic activity/volume) 53 U/L 40-136 Serum or plasma aspartate aminotransfera se measurement (enzymatic activity/volume) 26 U/L 5-34 Serum or plasma alanine aminotransferase measurement (enzymatic activity/volume) 18 U/L 0-55 Serum or plasma protein measurement (mass/volume) 6.4 g/dL 6.4-8.2 Serum or plasma albumin measurement (mass/volume) 3.5 g/dL 3.2-4.5 Magnesium - 05/25/16 05:09 Magnesium 2.0 mg/dL 1.8-2.4 Capillary blood glucose measurement by g lucometer (mass/volume) - 09/16/16 18:48 Capillary blood glucose measurement by glucometer (mas s/volume) 133 mg/dL 70-110 Capillary blood glucose measurement by g lucometer (mass/volume) - 09/16/16 20:59 Capillary blood glucose measurement by glucometer (mas s/volume) 203 mg/dL 70-110 Complete blood count (CBC) with automate d white blood cell (WBC) differential - 09/17/16 04:58 Blood leukocytes automated count (number/volume) 6.6 10*3/uL 4.3-11.0 Blood erythrocytes automated count (number/volume) 2.66 10*6/uL 4.35-5.85 Venous blood hemoglobin measurement (mass/volume) 8.0 g/dL 13.3-17.7 Blood hematocrit (volume fraction) 26 % 40-54 Automated erythrocyte mean corpuscular volume 96 [ foz_us] 80-99 Automated erythrocyte mean corpuscular h emoglobin (mass per erythrocyte) 30 pg 25-34 Automated erythrocyte mean corpuscular h emoglobin concentration measurement (mass/volume) 31 g/dL 32-36 Automated erythrocyte distribution width ratio 17. 6 % 10.0- 14.5 Automated blood platelet count (count/volume) 57 1 0*3/uL 130-400 Automated blood platelet mean volume measurement 10.5 [foz_us] 7.4-10.4 Automated blood neutrophils/100 leukocytes 80 % 42-75 Automated blood lymphocytes/100 leukocytes 12 % 12-44 Blood monocytes/100 leukocytes 7 % 0-12 Automated blood eosinophils/100 leukocytes 2 % 0-10 Automated blood basophils/100 leukocytes 0 % 0-10 Blood neutrophils automated count (number/volume) 5.2 10*3 1.8-7.8 Blood lymphocytes automated count (number/volume) 0.8 10*3 1.0-4.0 Blood monocytes automated count (number/volume) 0. 4 10*3 0.0-1.0 Automated eosinophil count 0.1 10*3/uL 0 .0-0.3 Automated blood basophil count (count/volume) 0.0 10*3/uL 0.0-0.1 Comprehensive metabolic panel - 09/17/16 04:58 Serum or plasma sodium measurement (moles/volume) 137 mmol/L 135-145 Serum or plasma potassium measurement (moles/volume) 3.4 mmol/L 3.6-5.0 Serum or plasma chloride measurement (moles/volume) 91 mmol/L 98-107 Carbon dioxide 31 mmol/L 21-32 Serum or plasma anion gap determination (moles/volume) 15 mmol/L 5-14 Serum or plasma urea nitrogen measurement (mass/volume ) 35 mg/dL 7-18 Serum or plasma creatinine measurement (mass/volume) 0.85 mg/dL 0.60-1.30 Serum or plasma urea nitrogen/creatinine mass ratio 41 NRG Serum or plasma creatinine measurement w ith calculation of estimated glomerular filtration rate > NRG Serum or plasma glucose measurement (mass/volume) 97 mg/dL 70-105 Serum or plasma calcium measurement (mass/volume) 9.5 mg/dL 8.5-10.1 Serum or plasma total bilirubin measurement (mass/volu me) 2.5 mg/dL 0.1-1.0 Serum or plasma alkaline phosphatase wilder surement (enzymatic activity/volume) 109 U/L 40-136 Serum or plasma aspartate aminotransfera se measurement (enzymatic activity/volume) 35 U/L 5-34 Serum or plasma alanine aminotransferase measurement (enzymatic activity/volume) 64 U/L 0-55 Serum or plasma protein measurement (mass/volume) 6.0 g/dL 6.4-8.2 Serum or plasma albumin measurement (mass/volume) 4.1 g/dL 3.2-4.5 Serum or plasma troponin i.cardiac measu rement (mass/volume) - 09/17/16 04:58 Serum or plasma troponin i.cardiac measurement (mass/v olume) < ng/mL <0.30 Capillary blood glucose measurement by g lucometer (mass/volume) - 09/17/16 11:04 Capillary blood glucose measurement by glucometer (mas s/volume) 123 mg/dL 70-110 Capillary blood glucose measurement by g lucometer (mass/volume) - 09/17/16 16:20 Capillary blood glucose measurement by glucometer (mas s/volume) 131 mg/dL 70-110 Capillary blood glucose measurement by g lucometer (mass/volume) - 09/17/16 20:31 Capillary blood glucose measurement by glucometer (mas s/volume) 182 mg/dL 70-110 Capillary blood glucose measurement by g lucometer (mass/volume) - 09/18/16 05:24 Capillary blood glucose measurement by glucometer (mas s/volume) 95 mg/dL 70-110 Capillary blood glucose measurement by g lucometer (mass/volume) - 09/18/16 11:01 Capillary blood glucose measurement by glucometer (mas s/volume) 139 mg/dL 70-110 Capillary blood glucose measurement by g lucometer (mass/volume) - 09/18/16 15:35 Capillary blood glucose measurement by glucometer (mas s/volume) 285 mg/dL 70-110 Capillary blood glucose measurement by g lucometer (mass/volume) - 09/18/16 20:51 Capillary blood glucose measurement by glucometer (mas s/volume) 122 mg/dL 70-110 Capillary blood glucose measurement by g lucometer (mass/volume) - 09/18/16 23:20 Capillary blood glucose measurement by glucometer (mas s/volume) 77 mg/dL 70-110 Capillary blood glucose measurement by g lucometer (mass/volume) - 09/18/16 23:31 Capillary blood glucose measurement by glucometer (mas s/volume) 73 mg/dL 70-110 Capillary blood glucose measurement by g lucometer (mass/volume) - 09/18/16 23:37 Capillary blood glucose measurement by glucometer (mas s/volume) 76 mg/dL 70-110 Capillary blood glucose measurement by g lucometer (mass/volume) - 09/18/16 23:49 Capillary blood glucose measurement by glucometer (mas s/volume) 98 mg/dL 70-110 Capillary blood glucose measurement by g lucometer (mass/volume) - 09/19/16 00:46 Capillary blood glucose measurement by glucometer (mas s/volume) 152 mg/dL 70-110 Capillary blood glucose measurement by g lucometer (mass/volume) - 09/19/16 04:41 Capillary blood glucose measurement by glucometer (mas s/volume) 146 mg/dL 70-110 Capillary blood glucose measurement by g lucometer (mass/volume) - 09/19/16 10:55 Capillary blood glucose measurement by glucometer (mas s/volume) 145 mg/dL 70-110 Capillary blood glucose measurement by g lucometer (mass/volume) - 09/19/16 16:08 Capillary blood glucose measurement by glucometer (mas s/volume) 132 mg/dL 70-110 Capillary blood glucose measurement by g lucometer (mass/volume) - 09/19/16 20:04 Capillary blood glucose measurement by glucometer (mas s/volume) 168 mg/dL 70-110 Capillary blood glucose measurement by g lucometer (mass/volume) - 09/19/16 22:19 Capillary blood glucose measurement by glucometer (mas s/volume) 119 mg/dL 70-110 Serum or plasma troponin i.cardiac measu rement (mass/volume) - 09/19/16 23:09 Serum or plasma troponin i.cardiac measurement (mass/v olume) < ng/mL <0.30 Serum or plasma troponin i.cardiac measu rement (mass/volume) - 09/20/16 04:57 Serum or plasma troponin i.cardiac measurement (mass/v olume) < ng/mL <0.30 Capillary blood glucose measurement by g lucometer (mass/volume) - 09/20/16 04:57 Capillary blood glucose measurement by glucometer (mas s/volume) 118 mg/dL 70-110 Capillary blood glucose measurement by g lucometer (mass/volume) - 09/20/16 11:07 Capillary blood glucose measurement by glucometer (mas s/volume) 145 mg/dL 70-110 Capillary blood glucose measurement by g lucometer (mass/volume) - 09/20/16 15:44 Capillary blood glucose measurement by glucometer (mas s/volume) 216 mg/dL 70-110 Capillary blood glucose measurement by g lucometer (mass/volume) - 09/20/16 20:44 Capillary blood glucose measurement by glucometer (mas s/volume) 143 mg/dL 70-110 Capillary blood glucose measurement by g lucometer (mass/volume) - 09/21/16 04:56 Capillary blood glucose measurement by glucometer (mas s/volume) 107 mg/dL 70-110 Capillary blood glucose measurement by g lucometer (mass/volume) - 09/21/16 11:01 Capillary blood glucose measurement by glucometer (mas s/volume) 157 mg/dL 70-110 Capillary blood glucose measurement by g lucometer (mass/volume) - 09/21/16 16:10 Capillary blood glucose measurement by glucometer (mas s/volume) 224 mg/dL 70-110 Capillary blood glucose measurement by g lucometer (mass/volume) - 09/21/16 20:23 Capillary blood glucose measurement by glucometer (mas s/volume) 211 mg/dL 70-110 Capillary blood glucose measurement by g lucometer (mass/volume) - 09/22/16 05:34 Capillary blood glucose measurement by glucometer (mas s/volume) 99 mg/dL 70-110 Comprehensive metabolic panel - 09/22/16 05:34 Serum or plasma sodium measurement (moles/volume) 136 mmol/L 135-145 Serum or plasma potassium measurement (moles/volume) 3.7 mmol/L 3.6-5.0 Serum or plasma chloride measurement (moles/volume) 94 mmol/L 98-107 Carbon dioxide 32 mmol/L 21-32 Serum or plasma anion gap determination (moles/volume) 10 mmol/L 5-14 Serum or plasma urea nitrogen measurement (mass/volume ) 30 mg/dL 7-18 Serum or plasma creatinine measurement (mass/volume) 0.99 mg/dL 0.60-1.30 Serum or plasma urea nitrogen/creatinine mass ratio 30 NRG Serum or plasma creatinine measurement w ith calculation of estimated glomerular filtration rate > NRG Serum or plasma glucose measurement (mass/volume) 92 mg/dL 70-105 Serum or plasma calcium measurement (mass/volume) 9.3 mg/dL 8.5-10.1 Serum or plasma total bilirubin measurement (mass/volu me) 1.6 mg/dL 0.1-1.0 Serum or plasma alkaline phosphatase wilder surement (enzymatic activity/volume) 117 U/L 40-136 Serum or plasma aspartate aminotransfera se measurement (enzymatic activity/volume) 33 U/L 5-34 Serum or plasma alanine aminotransferase measurement (enzymatic activity/volume) 54 U/L 0-55 Serum or plasma protein measurement (mass/volume) 6.1 g/dL 6.4-8.2 Serum or plasma albumin measurement (mass/volume) 4.0 g/dL 3.2-4.5 Hemoglobin A1c - 09/22/16 05:34 Hemoglobin A1c 5.1 % 4.5-6.2 Capillary blood glucose measurement by g lucometer (mass/volume) - 09/22/16 10:57 Capillary blood glucose measurement by glucometer (mas s/volume) 239 mg/dL 70-110 Capillary blood glucose measurement by g lucometer (mass/volume) - 09/22/16 16:21 Capillary blood glucose measurement by glucometer (mas s/volume) 122 mg/dL 70-110 Capillary blood glucose measurement by g lucometer (mass/volume) - 09/22/16 20:19 Capillary blood glucose measurement by glucometer (mas s/volume) 187 mg/dL 70-110 Capillary blood glucose measurement by g lucometer (mass/volume) - 09/23/16 04:35 Capillary blood glucose measurement by glucometer (mas s/volume) 95 mg/dL 70-110 Capillary blood glucose measurement by g lucometer (mass/volume) - 09/23/16 10:40 Capillary blood glucose measurement by glucometer (mas s/volume) 147 mg/dL 70-110 Capillary blood glucose measurement by g lucometer (mass/volume) - 09/23/16 16:05 Capillary blood glucose measurement by glucometer (mas s/volume) 142 mg/dL 70-110 Capillary blood glucose measurement by g lucometer (mass/volume) - 09/23/16 20:15 Capillary blood glucose measurement by glucometer (mas s/volume) 255 mg/dL 70-110 Capillary blood glucose measurement by g lucometer (mass/volume) - 09/24/16 06:31 Capillary blood glucose measurement by glucometer (mas s/volume) 100 mg/dL 70-110 Capillary blood glucose measurement by g lucometer (mass/volume) - 09/24/16 11:04 Capillary blood glucose measurement by glucometer (mas s/volume) 156 mg/dL 70-110 Capillary blood glucose measurement by g lucometer (mass/volume) - 09/24/16 16:10 Capillary blood glucose measurement by glucometer (mas s/volume) 179 mg/dL 70-110 Capillary blood glucose measurement by g lucometer (mass/volume) - 09/24/16 20:13 Capillary blood glucose measurement by glucometer (mas s/volume) 226 mg/dL 70-110 Capillary blood glucose measurement by g lucometer (mass/volume) - 09/25/16 05:27 Capillary blood glucose measurement by glucometer (mas s/volume) 119 mg/dL 70-110 Capillary blood glucose measurement by g lucometer (mass/volume) - 09/25/16 11:11 Capillary blood glucose measurement by glucometer (mas s/volume) 152 mg/dL 70-110 Capillary blood glucose measurement by g lucometer (mass/volume) - 09/25/16 16:08 Capillary blood glucose measurement by glucometer (mas s/volume) 146 mg/dL 70-110 Capillary blood glucose measurement by g lucometer (mass/volume) - 09/25/16 20:18 Capillary blood glucose measurement by glucometer (mas s/volume) 223 mg/dL 70-110 Capillary blood glucose measurement by g lucometer (mass/volume) - 09/25/16 21:17 Capillary blood glucose measurement by glucometer (mas s/volume) 199 mg/dL 70-110 Capillary blood glucose measurement by g lucometer (mass/volume) - 09/26/16 04:25 Capillary blood glucose measurement by glucometer (mas s/volume) 102 mg/dL 70-110 Capillary blood glucose measurement by g lucometer (mass/volume) - 09/26/16 11:20 Capillary blood glucose measurement by glucometer (mas s/volume) 156 mg/dL 70-110 Capillary blood glucose measurement by g lucometer (mass/volume) - 09/26/16 16:07 Capillary blood glucose measurement by glucometer (mas s/volume) 154 mg/dL 70-110 Capillary blood glucose measurement by g lucometer (mass/volume) - 09/26/16 19:54 Capillary blood glucose measurement by glucometer (mas s/volume) 187 mg/dL 70-110 Capillary blood glucose measurement by g lucometer (mass/volume) - 09/27/16 05:11 Capillary blood glucose measurement by glucometer (mas s/volume) 96 mg/dL 70-110 Comprehensive metabolic panel - 09/27/16 05:15 Serum or plasma sodium measurement (moles/volume) 137 mmol/L 135-145 Serum or plasma potassium measurement (moles/volume) 3.5 mmol/L 3.6-5.0 Serum or plasma chloride measurement (moles/volume) 94 mmol/L 98-107 Carbon dioxide 29 mmol/L 21-32 Serum or plasma anion gap determination (moles/volume) 14 mmol/L 5-14 Serum or plasma urea nitrogen measurement (mass/volume ) 29 mg/dL 7-18 Serum or plasma creatinine measurement (mass/volume) 1.03 mg/dL 0.60-1.30 Serum or plasma urea nitrogen/creatinine mass ratio 28 NRG Serum or plasma creatinine measurement w ith calculation of estimated glomerular filtration rate > NRG Serum or plasma glucose measurement (mass/volume) 99 mg/dL 70-105 Serum or plasma calcium measurement (mass/volume) 9.2 mg/dL 8.5-10.1 Serum or plasma total bilirubin measurement (mass/volu me) 1.4 mg/dL 0.1-1.0 Serum or plasma alkaline phosphatase wilder surement (enzymatic activity/volume) 106 U/L 40-136 Serum or plasma aspartate aminotransfera se measurement (enzymatic activity/volume) 27 U/L 5-34 Serum or plasma alanine aminotransferase measurement (enzymatic activity/volume) 45 U/L 0-55 Serum or plasma protein measurement (mass/volume) 6.1 g/dL 6.4-8.2 Serum or plasma albumin measurement (mass/volume) 4.0 g/dL 3.2-4.5 Complete blood count (CBC) with automate d white blood cell (WBC) differential - 09/27/16 05:15 Blood leukocytes automated count (number/volume) 9.7 10*3/uL 4.3-11.0 Blood erythrocytes automated count (number/volume) 2.99 10*6/uL 4.35-5.85 Venous blood hemoglobin measurement (mass/volume) 9.0 g/dL 13.3-17.7 Blood hematocrit (volume fraction) 29 % 40-54 Automated erythrocyte mean corpuscular volume 97 [ foz_us] 80-99 Automated erythrocyte mean corpuscular h emoglobin (mass per erythrocyte) 30 pg 25-34 Automated erythrocyte mean corpuscular h emoglobin concentration measurement (mass/volume) 31 g/dL 32-36 Automated erythrocyte distribution width ratio 17. 7 % 10.0- 14.5 Automated blood platelet count (count/volume) 140 10*3/uL 130-400 Automated blood platelet mean volume measurement 9.5 [foz_us] 7.4-10.4 Automated blood neutrophils/100 leukocytes 69 % 42-75 Automated blood lymphocytes/100 leukocytes 20 % 12-44 Blood monocytes/100 leukocytes 10 % 0-12 Automated blood eosinophils/100 leukocytes 0 % 0-10 Automated blood basophils/100 leukocytes 0 % 0-10 Blood neutrophils automated count (number/volume) 6.7 10*3 1.8-7.8 Blood lymphocytes automated count (number/volume) 2.0 10*3 1.0-4.0 Blood monocytes automated count (number/volume) 1. 0 10*3 0.0-1.0 Automated eosinophil count 0.0 10*3/uL 0 .0-0.3 Automated blood basophil count (count/volume) 0.0 10*3/uL 0.0-0.1 Capillary blood glucose measurement by g lucometer (mass/volume) - 09/27/16 11:03 Capillary blood glucose measurement by glucometer (mas s/volume) 169 mg/dL 70-110 Capillary blood glucose measurement by g lucometer (mass/volume) - 09/27/16 15:42 Capillary blood glucose measurement by glucometer (mas s/volume) 219 mg/dL 70-110 Capillary blood glucose measurement by g lucometer (mass/volume) - 09/27/16 20:38 Capillary blood glucose measurement by glucometer (mas s/volume) 183 mg/dL 70-110 Capillary blood glucose measurement by g lucometer (mass/volume) - 09/28/16 05:54 Capillary blood glucose measurement by glucometer (mas s/volume) 107 mg/dL 70-110 Capillary blood glucose measurement by g lucometer (mass/volume) - 09/28/16 11:08 Capillary blood glucose measurement by glucometer (mas s/volume) 146 mg/dL 70-110 Capillary blood glucose measurement by g lucometer (mass/volume) - 09/28/16 15:54 Capillary blood glucose measurement by glucometer (mas s/volume) 178 mg/dL 70-110 Capillary blood glucose measurement by g lucometer (mass/volume) - 09/28/16 20:52 Capillary blood glucose measurement by glucometer (mas s/volume) 147 mg/dL 70-110 Capillary blood glucose measurement by g lucometer (mass/volume) - 09/29/16 05:40 Capillary blood glucose measurement by glucometer (mas s/volume) 101 mg/dL 70-110 Capillary blood glucose measurement by g lucometer (mass/volume) - 09/29/16 11:10 Capillary blood glucose measurement by glucometer (mas s/volume) 146 mg/dL 70-110 Capillary blood glucose measurement by g lucometer (mass/volume) - 09/29/16 16:00 Capillary blood glucose measurement by glucometer (mas s/volume) 171 mg/dL 70-110 Capillary blood glucose measurement by g lucometer (mass/volume) - 09/29/16 22:28 Capillary blood glucose measurement by glucometer (mas s/volume) 149 mg/dL 70-110 Capillary blood glucose measurement by g lucometer (mass/volume) - 09/30/16 05:12 Capillary blood glucose measurement by glucometer (mas s/volume) 107 mg/dL 70-110 Capillary blood glucose measurement by g lucometer (mass/volume) - 09/30/16 11:01 Capillary blood glucose measurement by glucometer (mas s/volume) 136 mg/dL 70-110 Capillary blood glucose measurement by g lucometer (mass/volume) - 09/30/16 15:58 Capillary blood glucose measurement by glucometer (mas s/volume) 120 mg/dL 70-110 Capillary blood glucose measurement by g lucometer (mass/volume) - 09/30/16 21:19 Capillary blood glucose measurement by glucometer (mas s/volume) 117 mg/dL 70-110 Capillary blood glucose measurement by g lucometer (mass/volume) - 10/01/16 05:53 Capillary blood glucose measurement by glucometer (mas s/volume) 99 mg/dL 70-110 Capillary blood glucose measurement by g lucometer (mass/volume) - 10/01/16 11:25 Capillary blood glucose measurement by glucometer (mas s/volume) 148 mg/dL 70-110 Capillary blood glucose measurement by g lucometer (mass/volume) - 10/01/16 16:48 Capillary blood glucose measurement by glucometer (mas s/volume) 145 mg/dL 70-110 Capillary blood glucose measurement by g lucometer (mass/volume) - 10/01/16 21:29 Capillary blood glucose measurement by glucometer (mas s/volume) 163 mg/dL 70-110 Capillary blood glucose measurement by g lucometer (mass/volume) - 10/02/16 05:14 Capillary blood glucose measurement by glucometer (mas s/volume) 115 mg/dL 70-110 Capillary blood glucose measurement by g lucometer (mass/volume) - 10/02/16 16:48 Capillary blood glucose measurement by glucometer (mas s/volume) 147 mg/dL 70-110 Capillary blood glucose measurement by g lucometer (mass/volume) - 10/02/16 20:55 Capillary blood glucose measurement by glucometer (mas s/volume) 185 mg/dL 70-110 Capillary blood glucose measurement by g lucometer (mass/volume) - 10/03/16 06:03 Capillary blood glucose measurement by glucometer (mas s/volume) 115 mg/dL 70-110 Capillary blood glucose measurement by g lucometer (mass/volume) - 10/03/16 11:01 Capillary blood glucose measurement by glucometer (mas s/volume) 218 mg/dL 70-110 Capillary blood glucose measurement by g lucometer (mass/volume) - 10/03/16 16:08 Capillary blood glucose measurement by glucometer (mas s/volume) 117 mg/dL 70-110 Capillary blood glucose measurement by g lucometer (mass/volume) - 10/03/16 20:24 Capillary blood glucose measurement by glucometer (mas s/volume) 134 mg/dL 70-110 Capillary blood glucose measurement by g lucometer (mass/volume) - 10/04/16 05:33 Capillary blood glucose measurement by glucometer (mas s/volume) 102 mg/dL 70-110 Complete urinalysis with reflex to cultu re - 01/02/17 11:45 Urine color determination YELLOW NRG Urine clarity determination CLEAR NR G Urine pH measurement by test strip 6.5 5-9 Specific gravity of urine by test strip 1.010 1.016-1.022 Urine protein assay by test strip, semi-quantitative NEGATIVE NEGATIVE Urine glucose detection by automated test strip NE GATIVE NEGATIVE Erythrocytes detection in urine sediment by light micr oscopy NEGATIVE NEGATIVE Urine ketones detection by automated test strip NE GATIVE NEGATIVE Urine nitrite detection by test strip NEGATIVE NEGATIVE Urine total bilirubin detection by test strip NEGA TIVE NEGATIVE Urine urobilinogen measurement by automated test strip (mass/volume) NORMAL NORMAL Urine leukocyte esterase detection by dipstick 2+ NEGATIVE Automated urine sediment erythrocyte cou nt by microscopy (number/high power field) RARE NRG Automated urine sediment leukocyte count by microscopy (number/high power field) [HPF] NRG Bacteria detection in urine sediment by light microsco py TRACE NRG Squamous epithelial cells detection in u rine sediment by light microscopy RARE NRG Crystals detection in urine sediment by light microsco py NONE NRG Casts detection in urine sediment by light microscopy PRESENT NRG Mucus detection in urine sediment by light microscopy NEGATIVE NRG Complete urinalysis with reflex to culture YES NRG Hyaline casts detection in urine sediment by light bj roscopy RARE NRG Bacterial urine culture - 01/02/17 11:45 Bacterial urine culture NG NRG Complete blood count (CBC) with automate d white blood cell (WBC) differential - 01/02/17 14:18 Blood leukocytes automated count (number/volume) 18.8 10*3/uL 4.3-11.0 Blood erythrocytes automated count (number/volume) 3.61 10*6/uL 4.35-5.85 Venous blood hemoglobin measurement (mass/volume) 11.6 g/dL 13.3-17.7 Blood hematocrit (volume fraction) 36 % 40-54 Automated erythrocyte mean corpuscular volume 99 [ foz_us] 80-99 Automated erythrocyte mean corpuscular h emoglobin (mass per erythrocyte) 32 pg 25-34 Automated erythrocyte mean corpuscular h emoglobin concentration measurement (mass/volume) 33 g/dL 32-36 Automated erythrocyte distribution width ratio 14. 0 % 10.0- 14.5 Automated blood platelet count (count/volume) 168 10*3/uL 130-400 Automated blood platelet mean volume measurement 9.0 [foz_us] 7.4-10.4 Automated blood neutrophils/100 leukocytes 81 % 42-75 Automated blood lymphocytes/100 leukocytes 11 % 12-44 Blood monocytes/100 leukocytes 8 % 0-12 Automated blood eosinophils/100 leukocytes 0 % 0-10 Automated blood basophils/100 leukocytes 0 % 0-10 Blood neutrophils automated count (number/volume) 15.2 10*3 1.8-7.8 Blood lymphocytes automated count (number/volume) 2.0 10*3 1.0-4.0 Blood monocytes automated count (number/volume) 1. 4 10*3 0.0-1.0 Automated eosinophil count 0.1 10*3/uL 0 .0-0.3 Automated blood basophil count (count/volume) 0.0 10*3/uL 0.0-0.1 Whole blood basic metabolic panel - 12/18 09/03 14:18 Serum or plasma sodium measurement (moles/volume) 135 mmol/L 135-145 Serum or plasma potassium measurement (moles/volume) 3.6 mmol/L 3.6-5.0 Serum or plasma chloride measurement (moles/volume) 96 mmol/L 98-107 Carbon dioxide 28 mmol/L 21-32 Serum or plasma anion gap determination (moles/volume) 11 mmol/L 5-14 Serum or plasma urea nitrogen measurement (mass/volume ) 20 mg/dL 7-18 Serum or plasma creatinine measurement (mass/volume) 1.23 mg/dL 0.60-1.30 Serum or plasma urea nitrogen/creatinine mass ratio 16 NRG Serum or plasma creatinine measurement w ith calculation of estimated glomerular filtration rate 57 NRG Serum or plasma glucose measurement (mass/volume) 116 mg/dL 70-105 Serum or plasma calcium measurement (mass/volume) 9.5 mg/dL 8.5-10.1 Serum or plasma C reactive protein measu rement (mass/volume) - 01/02/17 14:18 Serum or plasma C reactive protein measurement (mass/v olume) 19.30 mg/dL 0.00-0.50 Blood manual differential performed dete ction - 01/02/17 14:18 Blood monocytes/100 leukocytes 10 % NRG Manual blood segmented neutrophils/100 leukocytes 68 % NRG Blood band neutrophils/100 leukocytes 10 % NRG Manual blood lymphocytes/100 leukocytes 12 % NRG Manual eosinophils/100 leukocytes in nose 0 % NRG Manual blood basophils/100 leukocytes 0 % NRG Blood macrocytes detection by light microscopy I T NRG Blood lactic acid measurement (moles/vol ume) - 01/02/17 16:16 Blood lactic acid measurement (moles/volume) 1.01 mmol/L 0.50-2.00 Bacterial blood culture - 01/02/17 16:16 Bacterial blood culture NG NRG Bacterial blood culture - 01/02/17 16:35 Bacterial blood culture NG NRG Complete blood count (CBC) with automate d white blood cell (WBC) differential - 01/03/17 05:20 Blood leukocytes automated count (number/volume) 18.7 10*3/uL 4.3-11.0 Blood erythrocytes automated count (number/volume) 3.28 10*6/uL 4.35-5.85 Venous blood hemoglobin measurement (mass/volume) 10.5 g/dL 13.3-17.7 Blood hematocrit (volume fraction) 32 % 40-54 Automated erythrocyte mean corpuscular volume 97 [ foz_us] 80-99 Automated erythrocyte mean corpuscular h emoglobin (mass per erythrocyte) 32 pg 25-34 Automated erythrocyte mean corpuscular h emoglobin concentration measurement (mass/volume) 33 g/dL 32-36 Automated erythrocyte distribution width ratio 14. 2 % 10.0- 14.5 Automated blood platelet count (count/volume) 154 10*3/uL 130-400 Automated blood platelet mean volume measurement 9.7 [foz_us] 7.4-10.4 Automated blood neutrophils/100 leukocytes 81 % 42-75 Automated blood lymphocytes/100 leukocytes 9 % 12-44 Blood monocytes/100 leukocytes 9 % 0-12 Automated blood eosinophils/100 leukocytes 0 % 0-10 Automated blood basophils/100 leukocytes 0 % 0-10 Blood neutrophils automated count (number/volume) 15.3 10*3 1.8-7.8 Blood lymphocytes automated count (number/volume) 1.7 10*3 1.0-4.0 Blood monocytes automated count (number/volume) 1. 7 10*3 0.0-1.0 Automated eosinophil count 0.0 10*3/uL 0 .0-0.3 Automated blood basophil count (count/volume) 0.0 10*3/uL 0.0-0.1 Comprehensive metabolic panel - 01/03/17 05:20 Serum or plasma sodium measurement (moles/volume) 133 mmol/L 135-145 Serum or plasma potassium measurement (moles/volume) 3.5 mmol/L 3.6-5.0 Serum or plasma chloride measurement (moles/volume) 97 mmol/L 98-107 Carbon dioxide 23 mmol/L 21-32 Serum or plasma anion gap determination (moles/volume) 13 mmol/L 5-14 Serum or plasma urea nitrogen measurement (mass/volume ) 23 mg/dL 7-18 Serum or plasma creatinine measurement (mass/volume) 1.29 mg/dL 0.60-1.30 Serum or plasma urea nitrogen/creatinine mass ratio 18 NRG Serum or plasma creatinine measurement w ith calculation of estimated glomerular filtration rate 54 NRG Serum or plasma glucose measurement (mass/volume) 132 mg/dL 70-105 Serum or plasma calcium measurement (mass/volume) 8.8 mg/dL 8.5-10.1 Serum or plasma total bilirubin measurement (mass/volu me) 0.6 mg/dL 0.1-1.0 Serum or plasma alkaline phosphatase wilder surement (enzymatic activity/volume) 62 U/L 40-136 Serum or plasma aspartate aminotransfera se measurement (enzymatic activity/volume) 21 U/L 5-34 Serum or plasma alanine aminotransferase measurement (enzymatic activity/volume) 14 U/L 0-55 Serum or plasma protein measurement (mass/volume) 6.3 g/dL 6.4-8.2 Serum or plasma albumin measurement (mass/volume) 3.5 g/dL 3.2-4.5 Serum or plasma C reactive protein measu rement (mass/volume) - 01/03/17 05:20 Serum or plasma C reactive protein measurement (mass/v olume) 21.58 mg/dL 0.00-0.50 Serum or plasma gentamicin measurement ( mass/volume) - 01/03/17 05:20 Serum or plasma gentamicin measurement (mass/volume) 7.1 ug/mL <=10.0 Complete blood count (CBC) with automate d white blood cell (WBC) differential - 01/04/17 10:21 Blood leukocytes automated count (number/volume) 10.6 10*3/uL 4.3-11.0 Blood erythrocytes automated count (number/volume) 3.19 10*6/uL 4.35-5.85 Venous blood hemoglobin measurement (mass/volume) 10.1 g/dL 13.3-17.7 Blood hematocrit (volume fraction) 31 % 40-54 Automated erythrocyte mean corpuscular volume 98 [ foz_us] 80-99 Automated erythrocyte mean corpuscular h emoglobin (mass per erythrocyte) 32 pg 25-34 Automated erythrocyte mean corpuscular h emoglobin concentration measurement (mass/volume) 33 g/dL 32-36 Automated erythrocyte distribution width ratio 13. 8 % 10.0- 14.5 Automated blood platelet count (count/volume) 152 10*3/uL 130-400 Automated blood platelet mean volume measurement 9.2 [foz_us] 7.4-10.4 Automated blood neutrophils/100 leukocytes 78 % 42-75 Automated blood lymphocytes/100 leukocytes 12 % 12-44 Blood monocytes/100 leukocytes 8 % 0-12 Automated blood eosinophils/100 leukocytes 2 % 0-10 Automated blood basophils/100 leukocytes 0 % 0-10 Blood neutrophils automated count (number/volume) 8.2 10*3 1.8-7.8 Blood lymphocytes automated count (number/volume) 1.3 10*3 1.0-4.0 Blood monocytes automated count (number/volume) 0. 9 10*3 0.0-1.0 Automated eosinophil count 0.2 10*3/uL 0 .0-0.3 Automated blood basophil count (count/volume) 0.0 10*3/uL 0.0-0.1 Comprehensive metabolic panel - 01/04/17 10:21 Serum or plasma sodium measurement (moles/volume) 131 mmol/L 135-145 Serum or plasma potassium measurement (moles/volume) 3.4 mmol/L 3.6-5.0 Serum or plasma chloride measurement (moles/volume) 97 mmol/L 98-107 Carbon dioxide 25 mmol/L 21-32 Serum or plasma anion gap determination (moles/volume) 9 mmol/L 5-14 Serum or plasma urea nitrogen measurement (mass/volume ) 15 mg/dL 7-18 Serum or plasma creatinine measurement (mass/volume) 0.88 mg/dL 0.60-1.30 Serum or plasma urea nitrogen/creatinine mass ratio 17 NRG Serum or plasma creatinine measurement w ith calculation of estimated glomerular filtration rate > NRG Serum or plasma glucose measurement (mass/volume) 156 mg/dL 70-105 Serum or plasma calcium measurement (mass/volume) 8.8 mg/dL 8.5-10.1 Serum or plasma total bilirubin measurement (mass/volu me) 0.4 mg/dL 0.1-1.0 Serum or plasma alkaline phosphatase wilder surement (enzymatic activity/volume) 69 U/L 40-136 Serum or plasma aspartate aminotransfera se measurement (enzymatic activity/volume) 23 U/L 5-34 Serum or plasma alanine aminotransferase measurement (enzymatic activity/volume) 18 U/L 0-55 Serum or plasma protein measurement (mass/volume) 6.1 g/dL 6.4-8.2 Serum or plasma albumin measurement (mass/volume) 3.4 g/dL 3.2-4.5 Complete blood count (CBC) with automate d white blood cell (WBC) differential - 01/05/17 05:23 Blood leukocytes automated count (number/volume) 8.4 10*3/uL 4.3-11.0 Blood erythrocytes automated count (number/volume) 3.04 10*6/uL 4.35-5.85 Venous blood hemoglobin measurement (mass/volume) 9.8 g/dL 13.3-17.7 Blood hematocrit (volume fraction) 30 % 40-54 Automated erythrocyte mean corpuscular volume 99 [ foz_us] 80-99 Automated erythrocyte mean corpuscular h emoglobin (mass per erythrocyte) 32 pg 25-34 Automated erythrocyte mean corpuscular h emoglobin concentration measurement (mass/volume) 33 g/dL 32-36 Automated erythrocyte distribution width ratio 14. 0 % 10.0- 14.5 Automated blood platelet count (count/volume) 166 10*3/uL 130-400 Automated blood platelet mean volume measurement 9.8 [foz_us] 7.4-10.4 Automated blood neutrophils/100 leukocytes 70 % 42-75 Automated blood lymphocytes/100 leukocytes 16 % 12-44 Blood monocytes/100 leukocytes 11 % 0-12 Automated blood eosinophils/100 leukocytes 3 % 0-10 Automated blood basophils/100 leukocytes 0 % 0-10 Blood neutrophils automated count (number/volume) 5.8 10*3 1.8-7.8 Blood lymphocytes automated count (number/volume) 1.4 10*3 1.0-4.0 Blood monocytes automated count (number/volume) 0. 9 10*3 0.0-1.0 Automated eosinophil count 0.3 10*3/uL 0 .0-0.3 Automated blood basophil count (count/volume) 0.0 10*3/uL 0.0-0.1 Comprehensive metabolic panel - 01/05/17 05:23 Serum or plasma sodium measurement (moles/volume) 135 mmol/L 135-145 Serum or plasma potassium measurement (moles/volume) 3.8 mmol/L 3.6-5.0 Serum or plasma chloride measurement (moles/volume) 99 mmol/L 98-107 Carbon dioxide 25 mmol/L 21-32 Serum or plasma anion gap determination (moles/volume) 11 mmol/L 5-14 Serum or plasma urea nitrogen measurement (mass/volume ) 15 mg/dL 7-18 Serum or plasma creatinine measurement (mass/volume) 0.97 mg/dL 0.60-1.30 Serum or plasma urea nitrogen/creatinine mass ratio 15 NRG Serum or plasma creatinine measurement w ith calculation of estimated glomerular filtration rate > NRG Serum or plasma glucose measurement (mass/volume) 128 mg/dL 70-105 Serum or plasma calcium measurement (mass/volume) 9.1 mg/dL 8.5-10.1 Serum or plasma total bilirubin measurement (mass/volu me) 0.6 mg/dL 0.1-1.0 Serum or plasma alkaline phosphatase wilder surement (enzymatic activity/volume) 77 U/L 40-136 Serum or plasma aspartate aminotransfera se measurement (enzymatic activity/volume) 29 U/L 5-34 Serum or plasma alanine aminotransferase measurement (enzymatic activity/volume) 21 U/L 0-55 Serum or plasma protein measurement (mass/volume) 6.5 g/dL 6.4-8.2 Serum or plasma albumin measurement (mass/volume) 3.5 g/dL 3.2-4.5 Digoxin - 01/05/17 05:23 Digoxin 0.68 ng/mL 0.80-2.00 Automated blood complete blood count (he mogram) panel - 01/18/17 11:08 Blood leukocytes automated count (number/volume) 9.4 10*3/uL 4.3-11.0 Blood erythrocytes automated count (number/volume) 3.31 10*6/uL 4.35-5.85 Venous blood hemoglobin measurement (mass/volume) 10.8 g/dL 13.3-17.7 Blood hematocrit (volume fraction) 33 % 40-54 Automated erythrocyte mean corpuscular volume 100 [foz_us] 80-99 Automated erythrocyte mean corpuscular h emoglobin (mass per erythrocyte) 33 pg 25-34 Automated erythrocyte mean corpuscular h emoglobin concentration measurement (mass/volume) 33 g/dL 32-36 Automated erythrocyte distribution width ratio 14. 0 % 10.0- 14.5 Automated blood platelet count (count/volume) 273 10*3/uL 130-400 Automated blood platelet mean volume measurement 8.5 [foz_us] 7.4-10.4 Comprehensive metabolic panel - 01/18/17 11:08 Serum or plasma sodium measurement (moles/volume) 136 mmol/L 135-145 Serum or plasma potassium measurement (moles/volume) 3.8 mmol/L 3.6-5.0 Serum or plasma chloride measurement (moles/volume) 98 mmol/L 98-107 Carbon dioxide 27 mmol/L 21-32 Serum or plasma anion gap determination (moles/volume) 11 mmol/L 5-14 Serum or plasma urea nitrogen measurement (mass/volume ) 27 mg/dL 7-18 Serum or plasma creatinine measurement (mass/volume) 1.45 mg/dL 0.60-1.30 Serum or plasma urea nitrogen/creatinine mass ratio 19 NRG Serum or plasma creatinine measurement w ith calculation of estimated glomerular filtration rate 47 NRG Serum or plasma glucose measurement (mass/volume) 123 mg/dL 70-105 Serum or plasma calcium measurement (mass/volume) 9.5 mg/dL 8.5-10.1 Serum or plasma total bilirubin measurement (mass/volu me) 0.3 mg/dL 0.1-1.0 Serum or plasma alkaline phosphatase wilder surement (enzymatic activity/volume) 68 U/L 40-136 Serum or plasma aspartate aminotransfera se measurement (enzymatic activity/volume) 22 U/L 5-34 Serum or plasma alanine aminotransferase measurement (enzymatic activity/volume) 17 U/L 0-55 Serum or plasma protein measurement (mass/volume) 6.6 g/dL 6.4-8.2 Serum or plasma albumin measurement (mass/volume) 3.9 g/dL 3.2-4.5 Complete urinalysis with reflex to cultu re - 01/18/17 11:40 Urine color determination YELLOW NRG Urine clarity determination CLEAR NR G Urine pH measurement by test strip 5 5-9 Specific gravity of urine by test strip 1.015 1.016-1.022 Urine protein assay by test strip, semi-quantitative NEGATIVE NEGATIVE Urine glucose detection by automated test strip NE GATIVE NEGATIVE Erythrocytes detection in urine sediment by light micr oscopy NEGATIVE NEGATIVE Urine ketones detection by automated test strip NE GATIVE NEGATIVE Urine nitrite detection by test strip NEGATIVE NEGATIVE Urine total bilirubin detection by test strip NEGA TIVE NEGATIVE Urine urobilinogen measurement by automated test strip (mass/volume) NORMAL NORMAL Urine leukocyte esterase detection by dipstick NEG ATIVE NEGATIVE Automated urine sediment erythrocyte cou nt by microscopy (number/high power field) NONE NRG Automated urine sediment leukocyte count by microscopy (number/high power field) NONE NRG Bacteria detection in urine sediment by light microsco py NEGATIVE NRG Squamous epithelial cells detection in u rine sediment by light microscopy RARE NRG Crystals detection in urine sediment by light microsco py NONE NRG Casts detection in urine sediment by light microscopy NONE NRG Mucus detection in urine sediment by light microscopy NEGATIVE NRG Complete urinalysis with reflex to culture NO NRG Complete urinalysis with reflex to cultu re - 06/02/17 15:11 Urine color determination YELLOW NRG Urine clarity determination CLEAR NR G Urine pH measurement by test strip 5 5-9 Specific gravity of urine by test strip 1.015 1.016-1.022 Urine protein assay by test strip, semi-quantitative 1+ NEGATIVE Urine glucose detection by automated test strip NE GATIVE NEGATIVE Erythrocytes detection in urine sediment by light micr oscopy NEGATIVE NEGATIVE Urine ketones detection by automated test strip NE GATIVE NEGATIVE Urine nitrite detection by test strip NEGATIVE NEGATIVE Urine total bilirubin detection by test strip NEGA TIVE NEGATIVE Urine urobilinogen measurement by automated test strip (mass/volume) NORMAL NORMAL Urine leukocyte esterase detection by dipstick 1+ NEGATIVE Automated urine sediment erythrocyte cou nt by microscopy (number/high power field) NONE NRG Automated urine sediment leukocyte count by microscopy (number/high power field) [HPF] NRG Bacteria detection in urine sediment by light microsco py NONE NRG Squamous epithelial cells detection in u rine sediment by light microscopy 5-10 NRG Crystals detection in urine sediment by light microsco py NONE NRG Casts detection in urine sediment by light microscopy NONE NRG Mucus detection in urine sediment by light microscopy NEGATIVE NRG Complete urinalysis with reflex to culture NO NRG Complete blood count (CBC) with automate d white blood cell (WBC) differential - 06/02/17 15:45 Blood leukocytes automated count (number/volume) 10.0 10*3/uL 4.3-11.0 Blood erythrocytes automated count (number/volume) 3.95 10*6/uL 4.35-5.85 Venous blood hemoglobin measurement (mass/volume) 12.6 g/dL 13.3-17.7 Blood hematocrit (volume fraction) 38 % 40-54 Automated erythrocyte mean corpuscular volume 95 [ foz_us] 80-99 Automated erythrocyte mean corpuscular h emoglobin (mass per erythrocyte) 32 pg 25-34 Automated erythrocyte mean corpuscular h emoglobin concentration measurement (mass/volume) 33 g/dL 32-36 Automated erythrocyte distribution width ratio 13. 8 % 10.0- 14.5 Automated blood platelet count (count/volume) 183 10*3/uL 130-400 Automated blood platelet mean volume measurement 9.3 [foz_us] 7.4-10.4 Automated blood neutrophils/100 leukocytes 58 % 42-75 Automated blood lymphocytes/100 leukocytes 28 % 12-44 Blood monocytes/100 leukocytes 12 % 0-12 Automated blood eosinophils/100 leukocytes 2 % 0-10 Automated blood basophils/100 leukocytes 0 % 0-10 Blood neutrophils automated count (number/volume) 5.8 10*3 1.8-7.8 Blood lymphocytes automated count (number/volume) 2.8 10*3 1.0-4.0 Blood monocytes automated count (number/volume) 1. 2 10*3 0.0-1.0 Automated eosinophil count 0.2 10*3/uL 0 .0-0.3 Automated blood basophil count (count/volume) 0.0 10*3/uL 0.0-0.1 Comprehensive metabolic panel - 06/02/17 15:45 Serum or plasma sodium measurement (moles/volume) 138 mmol/L 135-145 Serum or plasma potassium measurement (moles/volume) 3.5 mmol/L 3.6-5.0 Serum or plasma chloride measurement (moles/volume) 99 mmol/L 98-107 Carbon dioxide 28 mmol/L 21-32 Serum or plasma anion gap determination (moles/volume) 11 mmol/L 5-14 Serum or plasma urea nitrogen measurement (mass/volume ) 16 mg/dL 7-18 Serum or plasma creatinine measurement (mass/volume) 0.96 mg/dL 0.60-1.30 Serum or plasma urea nitrogen/creatinine mass ratio 17 NRG Serum or plasma creatinine measurement w ith calculation of estimated glomerular filtration rate > NRG Serum or plasma glucose measurement (mass/volume) 95 mg/dL 70-105 Serum or plasma calcium measurement (mass/volume) 9.5 mg/dL 8.5-10.1 Serum or plasma total bilirubin measurement (mass/volu me) 0.5 mg/dL 0.1-1.0 Serum or plasma alkaline phosphatase wilder surement (enzymatic activity/volume) 59 U/L 40-136 Serum or plasma aspartate aminotransfera se measurement (enzymatic activity/volume) 25 U/L 5-34 Serum or plasma alanine aminotransferase measurement (enzymatic activity/volume) 19 U/L 0-55 Serum or plasma protein measurement (mass/volume) 6.6 g/dL 6.4-8.2 Serum or plasma albumin measurement (mass/volume) 4.1 g/dL 3.2-4.5 Digoxin - 08/25/17 14:57 Digoxin < ng/mL 0.80-2.00 Complete blood count (CBC) with automate d white blood cell (WBC) differential - 08/25/17 14:59 Blood leukocytes automated count (number/volume) 8.2 10*3/uL 4.3-11.0 Blood erythrocytes automated count (number/volume) 3.71 10*6/uL 4.35-5.85 Venous blood hemoglobin measurement (mass/volume) 12.2 g/dL 13.3-17.7 Blood hematocrit (volume fraction) 37 % 40-54 Automated erythrocyte mean corpuscular volume 100 [foz_us] 80-99 Automated erythrocyte mean corpuscular h emoglobin (mass per erythrocyte) 33 pg 25-34 Automated erythrocyte mean corpuscular h emoglobin concentration measurement (mass/volume) 33 g/dL 32-36 Automated erythrocyte distribution width ratio 14. 7 % 10.0- 14.5 Automated blood platelet count (count/volume) 189 10*3/uL 130-400 Automated blood platelet mean volume measurement 9.7 [foz_us] 7.4-10.4 Automated blood neutrophils/100 leukocytes 76 % 42-75 Automated blood lymphocytes/100 leukocytes 15 % 12-44 Blood monocytes/100 leukocytes 7 % 0-12 Automated blood eosinophils/100 leukocytes 2 % 0-10 Automated blood basophils/100 leukocytes 0 % 0-10 Blood neutrophils automated count (number/volume) 6.2 10*3 1.8-7.8 Blood lymphocytes automated count (number/volume) 1.2 10*3 1.0-4.0 Blood monocytes automated count (number/volume) 0. 6 10*3 0.0-1.0 Automated eosinophil count 0.2 10*3/uL 0 .0-0.3 Automated blood basophil count (count/volume) 0.0 10*3/uL 0.0-0.1 PT panel in platelet poor plasma by coag ulation assay - 08/25/17 14:59 Prothrombin time (PT) in platelet poor plasma by coagu lation assay 15.3 s 12.2-14.7 INR in platelet poor plasma or blood by coagulation as say 1.2 0.8-1.4 Activated partial thromboplastin time (a PTT) in platelet poor plasma bycoagulation assay - 08/25/17 14:59 Activated partial thromboplastin time (a PTT) in platelet poor plasma bycoagulation assay 33 s 24-35 Comprehensive metabolic panel - 08/25/17 14:59 Serum or plasma sodium measurement (moles/volume) 137 mmol/L 135-145 Serum or plasma potassium measurement (moles/volume) 4.0 mmol/L 3.6-5.0 Serum or plasma chloride measurement (moles/volume) 101 mmol/L 98-107 Carbon dioxide 25 mmol/L 21-32 Serum or plasma anion gap determination (moles/volume) 11 mmol/L 5-14 Serum or plasma urea nitrogen measurement (mass/volume ) 17 mg/dL 7-18 Serum or plasma creatinine measurement (mass/volume) 1.29 mg/dL 0.60-1.30 Serum or plasma urea nitrogen/creatinine mass ratio 13 NRG Serum or plasma creatinine measurement w ith calculation of estimated glomerular filtration rate 54 NRG Serum or plasma glucose measurement (mass/volume) 220 mg/dL 70-105 Serum or plasma calcium measurement (mass/volume) 9.2 mg/dL 8.5-10.1 Serum or plasma total bilirubin measurement (mass/volu me) 0.5 mg/dL 0.1-1.0 Serum or plasma alkaline phosphatase wilder surement (enzymatic activity/volume) 78 U/L 40-136 Serum or plasma aspartate aminotransfera se measurement (enzymatic activity/volume) 56 U/L 5-34 Serum or plasma alanine aminotransferase measurement (enzymatic activity/volume) 48 U/L 0-55 Serum or plasma protein measurement (mass/volume) 6.9 g/dL 6.4-8.2 Serum or plasma albumin measurement (mass/volume) 4.1 g/dL 3.2-4.5 Magnesium - 08/25/17 14:59 Magnesium 1.8 mg/dL 1.8-2.4 Serum or plasma troponin i.cardiac measu rement (mass/volume) - 08/25/17 14:59 Serum or plasma troponin i.cardiac measurement (mass/v olume) < ng/mL <0.30 Myoglobin, serum - 08/25/17 14:59 Myoglobin, serum 78.2 ng/mL 10.0-92.0 Serum or plasma lithium measurement (mol es/volume) - 08/25/17 14:59 BNP level 363.7 pg/mL <100.0 Complete blood count (CBC) with automate d white blood cell (WBC) differential - 10/16/18 11:05 Blood leukocytes automated count (number/volume) 8.1 10*3/uL 4.3-11.0 Blood erythrocytes automated count (number/volume) 3.76 10*6/uL 4.35-5.85 Venous blood hemoglobin measurement (mass/volume) 11.2 g/dL 13.3-17.7 Blood hematocrit (volume fraction) 36 % 40-54 Automated erythrocyte mean corpuscular volume 95 [ foz_us] 80-99 Automated erythrocyte mean corpuscular h emoglobin (mass per erythrocyte) 30 pg 25-34 Automated erythrocyte mean corpuscular h emoglobin concentration measurement (mass/volume) 32 g/dL 32-36 Automated erythrocyte distribution width ratio 18. 8 % 10.0- 14.5 Automated blood platelet count (count/volume) 187 10*3/uL 130-400 Automated blood platelet mean volume measurement 8.8 [foz_us] 7.4-10.4 Automated blood neutrophils/100 leukocytes 74 % 42-75 Automated blood lymphocytes/100 leukocytes 14 % 12-44 Blood monocytes/100 leukocytes 10 % 0-12 Automated blood eosinophils/100 leukocytes 2 % 0-10 Automated blood basophils/100 leukocytes 0 % 0-10 Blood neutrophils automated count (number/volume) 6.0 10*3 1.8-7.8 Blood lymphocytes automated count (number/volume) 1.1 10*3 1.0-4.0 Blood monocytes automated count (number/volume) 0. 8 10*3 0.0-1.0 Automated eosinophil count 0.1 10*3/uL 0 .0-0.3 Automated blood basophil count (count/volume) 0.0 10*3/uL 0.0-0.1 Comprehensive metabolic panel - 10/16/18 11:05 Serum or plasma sodium measurement (moles/volume) 133 mmol/L 135-145 Serum or plasma potassium measurement (moles/volume) 4.4 mmol/L 3.6-5.0 Serum or plasma chloride measurement (moles/volume) 93 mmol/L 98-107 Carbon dioxide 26 mmol/L 21-32 Serum or plasma anion gap determination (moles/volume) 14 mmol/L 5-14 Serum or plasma urea nitrogen measurement (mass/volume ) 11 mg/dL 7-18 Serum or plasma creatinine measurement (mass/volume) 1.12 mg/dL 0.60-1.30 Serum or plasma urea nitrogen/creatinine mass ratio 10 NRG Serum or plasma creatinine measurement w ith calculation of estimated glomerular filtration rate > NRG Serum or plasma glucose measurement (mass/volume) 160 mg/dL 70-105 Serum or plasma calcium measurement (mass/volume) 9.7 mg/dL 8.5-10.1 Serum or plasma total bilirubin measurement (mass/volu me) 0.5 mg/dL 0.1-1.0 Serum or plasma alkaline phosphatase wilder surement (enzymatic activity/volume) 62 U/L 40-136 Serum or plasma aspartate aminotransfera se measurement (enzymatic activity/volume) 21 U/L 5-34 Serum or plasma alanine aminotransferase measurement (enzymatic activity/volume) 17 U/L 0-55 Serum or plasma protein measurement (mass/volume) 6.5 g/dL 6.4-8.2 Serum or plasma albumin measurement (mass/volume) 4.2 g/dL 3.2-4.5 CALCIUM CORRECTED 9.5 mg/dL 8.5-10.1 Serum iron and total iron binding capaci ty panel - 10/16/18 11:05 TIBC 359 % 280-380 UIBC 206 % 55-450 Serum or plasma iron measurement (mass/volume) 153 % 40-180 Total iron binding capacity and transferrin saturation measurement 43 % 15-50 Serum or plasma ferritin measurement (mass/volume) 61.0 % 32.0-356.0 Encounters ACCT No. Visit Date/Time Discharge Status Pt. Type Provider Facility Loc./Unit Complaint [id number] 01/02/2019 11:00:00 01/02/2019 23:59: 59 CLS Outpatient LISA MAGANA, MARKELL [facility] [id number] 09/19/2019 10:07:00 23:59:59 CLS Outpatient YULISSA RASHID MD [facility] ONC [id number] 07/08/2019 16:03:00 23:59:59 CLS Preadmit CRISTI SAENZ APRN [facility] RAD ABN FINDING MYRA MICHEL [id number] 05/14/2019 11:27:00 23:59:59 CLS Outpatient ISREAL SMITH FACC, MARCK FACP CC DS [facility] CARD CAD,,HX O F TOBACCO USE,HYPERLIPIDEMIA [id number] 05/13/2019 08:57:00 23:59:59 CLS Outpatient ISREAL MSITH FACC, MARCK LEMA CC DS [facility] CARD CAD,,HX O F TOBACCO USE,HYPERLIPIDEMIA [id number] 04/09/2019 12:39:00 23:59:59 CLS Outpatient YULISSA RASHID MD [facility] ONC [id number] 12/11/2018 10:26:00 00:01:00 DIS Outpatient YULISSA RASHID MD [facility] ONC [id number] 10/22/2018 19:34:00 07:17:00 DIS Outpatient CRISTI SAENZ APRN [facility] SLEEP SUSPECTED SLEEP APNEA [id number] 08/29/2018 10:34:00 23:59:59 CLS Outpatient CRISTI SAENZ APRN [facility] RT SOB [id number] 08/21/2018 08:18:00 23:59:59 CLS Outpatient QUINN ALCARAZ MD [facility] CARD ANEMIA [id number] 08/18/2018 00:10:00 23:59:59 CLS Preadmit JOSH SNEED [employer] ADMINISTRATOR [facility] CR3 CARDIAC REHAB PHASE III [id number] 08/03/2018 10:29:00 00:01:00 DIS Outpatient JOSH SNEED [employer] ADMINISTRATOR [facility] CR3 CARDIAC REHAB P HASE III [id number] 07/13/2018 09:21:00 23:59:59 CLS Outpatient CRISTI SAENZ APRN [facility] RAD SOB [id number] 07/04/2018 09:05:00 00:01:00 DIS Outpatient JOSH SNEED L [employer] ADMINISTRATOR [facility] CR3 CARDIAC REHAB P HASE III [id number] 05/30/2018 09:05:00 03/13/2 019 00:01:00 DIS Outpatient JOSH SNEED [facility] CR3 CARDIAC REHAB P HASE III [id number] 05/02/2018 10:17:00 019 13:50:00 DIS Outpatient QUINN ALCARAZ MD [facility] ENDO ANEMIA/OCCULT STOOLS/RE FLUX [id number] 04/26/2018 15:04:00 019 16:00:00 DIS Outpatient QUINN ALCARAZ MD [facility] PREOP COLONOSCOPY/EGD [id number] 12/04/2017 08:55:00 018 23:59:59 CLS Outpatient JOSH SNEED [facility] CARD CAD,CHRONIC ATR IAL FIBRILLATIONS [id number] 08/25/2017 14:18:00 018 18:05:00 DIS Emergency MICHAEL ROMAN MD [facility] ER SOB [id number] 06/02/2017 14:12:00 018 17:30:00 DIS Emergency CJ GASTON [facility] ER BACK PAIN [id number] 01/18/2017 10:47:00 23:59:59 CLS Outpatient GARRETT MADRID MD [facility] CARD STERNAL PAIN R07.2,Z01. 810 [id number] 01/02/2017 16:02:00 017 14:00:00 DIS Inpatient BECK ESTEVES MD [facility] 4TH SCROTAL CELLULITIS [id number] 12/19/2016 12:16:00 017 23:59:59 CLS Outpatient ELIZABET CHENG [facility] RAD HX OF HEART DISEASE [id number] 11/04/2016 12:38:00 23:59:59 CLS Preadmit MAIKEL MORLEY [facility] RAD HEART VALVE REPLACED BY OTHER MEANS [id number] 09/16/2016 16:40:00 017 09:40:00 DIS Inpatient DNONA SMITH, NEGRITO Casey [facility] IRF DEBILITY [id number] 05/21/2016 15:00:00 017 13:40:00 DIS Inpatient LINN SMITH, BECK Deleon [facility] 4TH CHF,COPD,AFIB [id number] 05/18/2016 10:54:00 23:59:59 CLS Outpatient JOSH SNEED [facility] RAD ,CAD [id number] 03/31/2016 17:35:00 017 15:40:00 DIS Inpatient BUCK ARMENDARIZ DO, V [facility] 4TH EXACERBATION COPD [id number] 03/22/2016 16:21:00 23:59:59 CLS Outpatient NORIS JANE DO [facility] RAD SOB [id number] 03/08/2016 14:32:00 23:59:59 CLS Outpatient ISREAL SMITH FACC, ALI FACP CC DS [facility] RAD SOB,CAD,CHR ONIC AFIB [id number] 03/03/2016 15:44:00 016 23:59:59 CLS Outpatient ISREAL SMITH FACC, ALI FACP CC DS [facility] LAB STAGE 3 CHR ONIC KIDNEY DISEASE [id number] 03/01/2016 06:49:00 18:00:00 DIS Outpatient ISREAL SMITH FACC ALI FACP CC DS [facility] CATH SOB,COPD [id number] 02/24/2016 14:20:00 016 23:59:59 CLS Outpatient ISREAL SMITH FACC, ALI FACP CC DS [facility] LAB CHRONIC A FIB,SOB,MITRAL REGURGITATION,,PAH [id number] 02/18/2016 12:42:00 016 23:59:59 CLS Outpatient ISREAL SMITH FACC, ALI FACP CC DS [facility] CARD CAD,SOB [id number] 02/16/2016 07:15:00 11/29/2 016 23:59:59 CLS Outpatient ISREAL SMITH FACC, MARCK CHASEP CC DS [facility] CARD SOB,CAD [id number] 10/03/2019 11:45:00 P EN Preadmit CRISTI SAENZ APRN [facility] RAD OTHER DISORDERS OF LUNG,COPD [id number] 10/02/2019 06:55:[address] Inpatient CECY SMITH, MARCIO Quevedo [facility] ICU TACHIOCARDIA [id number] 07/24/2018 10:48:00 Document Registration
[2019-10-02 09:04] LABS: PROTHROMBIN TIME PATIENT 13.9 SEC (12.2-14.7)
--- NOTE | 2019-10-02 09:05 | Diagnostic Imaging Report ---
EXAM: CHEST 1 VIEW, AP/PA ONLY INDICATION: Atrial fibrillation. COMPARISON: CT chest without contrast 07/13/2018. FINDINGS: Cardiomegaly. Sternotomy. Pulmonary vascular congestion. Elevation of the left hemidiaphragm with atelectasis in the left lung base. Small bilateral pleural effusions. No pneumothorax. IMPRESSION: 1. Cardiomegaly with pulmonary vascular congestion. 2. Small bilateral pleural effusions appear to be new since 07/13/2018. 3. Elevation of the left hemidiaphragm and consolidation in the left lung base likely representing atelectasis. Dictated by: Dictated on workstation # [id number]
[2019-10-02] MEDS ORDERED: ANTACID SUSP 30 ML UDC (MYLANTA) PO PRN (11:45)
[2019-10-02] MEDS ORDERED: ACETAMINOPHEN 325 MG TABLET PO PRN (11:45)
[2019-10-02] MEDS ORDERED: MILK OF MAGNESIA 400 MG/5 ML 30 ML UDC PO PRN (11:45)
[2019-10-02] MEDS ORDERED: BENZONATATE 100 MG (TESSALON) CAPSULE PO PRN (11:45)
[2019-10-02] MEDS ORDERED: ONDANSETRON 4 MG/2 ML (SDV) Z0FRAN IV PRN (11:45)
--- NOTE | 2019-10-02 12:37 | History & Physical-Hospitalist ---
History of Present Illness HPI/Chief Complaint Pt is a 79yoCM with a PMH of a-fib, CAD s/p CABG, HTN, COPD who presented to the ER due to chest heaviness. On arrival to outside ER he was found to have a heart rate in the 180s and they believed it to be SVT. They tried 3 doses of adenosine without improvement and reportedly his BP started to drop so they elected to cardiovert him. He responded well to that and his rate improved. He reports feeling well now and has no complaints. Source: patient Date Seen 10/02/19 Time Seen by a Provider: 12:32 Attending Physician Laxmi Lemos MD PCP Wayne Barba DO Referring Physician Date of Admission Oct 02, 2019 at 06:55 Home Medications & Allergies Home Medications Reviewed patient Home Medication Reconciliation performed by pharmacy medication reconciliations energy and conservation technician and/or nursing. Patients Allergies have been reviewed. Allergies Allergies Coded Allergies Penicillins (Verified Allergy, Unknown, 03/01/16) cephalexin (Verified Allergy, Unknown, 03/01/16) ciprofloxacin (Verified Allergy, Unknown, 03/01/16) methotrexate (Verified Allergy, Unknown, 03/01/16) Past Iaecefh-Tzzfan-Fkoegq Hx Past Med/Social Hx: Reviewed Nursing Past Med/Soc Hx Patient Social History Employed/Student: retired Former Smoker, Quit: May 02, 1971 Type Used: Cigarettes 2nd Hand Smoke Exposure: No Recent Hopitalizations: No Immunizations Up To Date Tetanus Booster (TDap): More than 5yrs Date of Pneumonia Vaccine: Dec 02, 2017 Date of Influenza Vaccine: Dec 20, 2017 Seasonal Allergies Seasonal Allergies: Yes (hayfever) Past Medical History Surgeries: Adenoidectomy, CABG, Tonsillectomy, Valve Replacement Respiratory: COPD, Pneumonia Currently Using CPAP: No Currently Using BIPAP: No Cardiac: Atrial Fibrillation, Coronary Artery Disease, High Cholesterol, Hypertension, Valvular Heart Disease Reproductive: No Genitourinary: Bladder Infection Gastrointestinal: Gastroesophageal Reflux, Chronic Constipation Musculoskeletal: Arthritis, Rheumatoid Arthritis HEENT: Cataract Loss of Vision: Bilateral Hearing Impairment: Hard of Hearing, Hearing Aide Right Cancer: Kidney Did You Recieve Any Treatments: No What Type of Treatment Did You: Surgical Intervention Psychosocial: Depression History of Blood Disorders: Yes (ANEMIA) Adverse Reaction to Blood Petersen: No Family History Reviewed Nursing Family Hx Cardiovascular disease G8 BROTHER G8 SISTER No Pertinent Family Hx Review of Systems Constitutional: No chills, No fever EENTM: no symptoms reported Respiratory: no symptoms reported Cardiovascular: chest pain, Hx of Intervention, palpitations Genitourinary: no symptoms reported Musculoskeletal: no symptoms reported Skin: no symptoms reported Psychiatric/Neurological: No Symptoms Reported Physical Exam Physical Exam Vital Signs Vital Signs - First Documented 10/02/19 06:56 Temp 36.7 Pulse 77 Resp 21 B/P (MAP) 109/75 (86) Pulse Ox 96 O2 Delivery Nasal Cannula O2 Flow Rate 2.00 Capillary Refill : Less Than 3 Seconds Height, Weight, BMI Height: 5'3.00" Weight: 204lbs. 0.0oz. 92.797505ql; 37.50 BMI Method:Stated General Appearance: No Apparent Distress, Chronically ill (f) HEENT: PERRL/EOMI, Moist Mucous Membranes Neck: Other (obscured by abdul) Respiratory: Lungs Clear, No Accessory Muscle Use, No Respiratory Distress Cardiovascular: No Murmur, Irregularly Irregular Gastrointestinal: Normal Bowel Sounds, Non Tender, Soft Extremity: Normal Capillary Refill, No Calf Tenderness, No Pedal Edema Neurologic/Psychiatric: Alert, Oriented x3, Normal Mood/Affect Skin: Normal Color, Warm/Dry Results Results/Procedures Labs Patient resulted labs reviewed. Imaging: Reviewed Imaging Report Assessment/Plan Admission Diagnosis A-fib with RVR Admission Status: Observation Assessment and Plan A-fib with RVR CAD s/p CABG HTN S/p cardioversion at [facility] Rate note controlled Continue home meds whenever med rec available Cardiology consulted, appreciate recs Resume Eliquis COPD Chronic Respiratory Failure Continue supplemental oxygen Continue home meds Not an acute exacerbation Clinical Quality Measures DVT/VTE Risk/Contraindication: Risk Factor Score Per Nursin RFS Level Per Nursing on Admit: 4+=Very High JINA DRAKE MD Oct 02, 2019 12:37
[2019-10-02] MEDS ORDERED: RT-ALBUTEROL/IPRATROPIUM 3 ML (DUONEB) VIAL INH PRN (17:00)
[2019-10-02] MEDS: TAMSULOSIN 0.4 MG (FLOMAX) CAP PO SCH (17:46)
[2019-10-02] MEDS: sulfaSALAzine 500 MG (AZULFIDINE) TAB PO SCH (17:46)
--- NOTE | 2019-10-02 18:39 | Consultation-Cardiology ---
HPI-Cardiology Cardiology Consultation: Date of Consultation 10/02/19 Date of Admission Attending Physician Laxmi Lemos MD Admitting Physician Wayne Barba DO Consulting Physician Emy BARAHONA MD HPI: Time Seen by a Provider: 09:30 Chief Complaint: Chest heaviness, palpitations This is a 79-year-old gentleman with previous history of atrial fibrillation, CAD, CABG, hypertension, COPD. He presented to the ER with complain of chest heaviness. Mild to moderate intensity. He was found to be in narrow complex tachycardia at 180 BPM. Adenosine was tried with no improvement. PSVT was associated with hemodynamic compromise therefore urgent cardioversion was performed. He denies active smoking. Pertinent family history is negative. Review of Systems-Cardiology Review of Systems Constitutional: As described under HPI; No As described under HPI, No no symptoms reported, No chills, No fever, No lightheadedness Eyes: No As described under HPI, No no symptoms reported, No blindness, No blurred vision, No contact lenses, No drainage, No decreased acuity, No foreign body sensation, No pain, No vision change Ears/Nose/Throat: No As described under HPI, No no symptoms reported, No chronic hearing loss, No ear discharge, No ear pain, No nasal drainage, No ulcerations Respiratory: No no symptoms reported; As described under HPI; No As described under HPI, No cough, No orthopnea, No shortness of breath, No SOB with excertion Cardiovascular: No no symptoms reported; As described under HPI; No As described under HPI; chest pain; No edema, No irregular heart rate, No lightheadedness; palpitations Gastrointestinal: No no symptoms reported, No As described under HPI, No abdomen distended, No abdominal pain, No blood streaked bowels, No constipation, No diarrhea, No nausea, No vomiting, No stool coloration changes Genitourinary: No As described under HPI, No burning, No dysuria, No discharge, No frequency, No flank pain, No hematuria, No urgency Skin: No rash, No skin related problems, No ulcerations Psychiatric/Neurological: No anxiety, No depression, No seizure, No focal weakness, No syncope Hematologic: No bleeding abnormalities EGG-Xaybmg-Ahojmt Hx Patient Social History Employed/Student: retired Type Used: Cigarettes 2nd Hand Smoke Exposure: No Immunizations Up To Date Tetanus Booster (TDap): More than 5yrs Date of Pneumonia Vaccine: Dec 02, 2017 Date of Influenza Vaccine: Dec 20, 2017 Past Medical History PMH As described under Assessment. Family Medical History Family History: Cardiovascular disease G8 BROTHER G8 SISTER Allergies and Home Medications Allergies Coded Allergies: Penicillins (Verified Allergy, Unknown, 03/01/16) cephalexin (Verified Allergy, Unknown, 03/01/16) ciprofloxacin (Verified Allergy, Unknown, 03/01/16) methotrexate (Verified Allergy, Unknown, 03/01/16) Home Medications Acetaminophen 650 Mg Tablet.er, 650 MG PO Q4H PRN for FEVER, (Reported) Albuterol Sulfate 1 Puff Puff, 2 PUFF IH Q6H PRN for SHORTNESS OF BREATH, (Reported) 1 PUFF = 90 MCG Apixaban 5 Mg Tablet, 5 MG PO BID, (Reported) Aspirin 81 Mg Tablet.dr, 81 MG PO DAILY, (Reported) Atorvastatin Calcium 80 Mg Tablet, 80 MG PO HS, (Reported) Bisacodyl 5 Mg Tablet.dr, 5 MG PO DAILY PRN for CONSTIPATION-1ST LINE, (Reported) Cholecalciferol (Vitamin D3) 1,000 Unit Capsule, 1,000 UNIT PO DAILY, (Reported) Clindamycin HCl 300 Mg Capsule, 300 MG PO TID Prescribed by: BUCK ARMENDARIZ on 01/05/17 1039 Digoxin 250 Mcg Tablet, 250 MCG PO DAILY, (Reported) Fesoterodine Fumarate 4 Mg Tab.sr.24h, 4 MG PO DAILY, (Reported) Finasteride 5 Mg Tablet, 5 MG PO HS, (Reported) Fluticasone Propionate 16 Gm [place].susp, 1 SPRAY NSEACH DAILY, (Reported) Furosemide 40 Mg Tablet, 40 MG PO DAILY PRN, (Reported) Guaifenesin 100 Mg/5 Ml Liquid, 100 MG PO DAILY, (Reported) Loratadine 10 Mg Tablet, 10 MG PO DAILY PRN for allergies, (Reported) Metoprolol Succinate 100 Mg Tab.er.24h, 50 MG PO DAILY, (Reported) take 1/2 of 100mg tab [place] 3 Polyunsat Fatty Acids 1,000 Mg Cap, 1,000 MG PO BID, (Reported) Pantoprazole Sodium 40 Mg Tablet.dr, 40 MG PO BID, (Reported) Prednisone 5 Mg Tablet, 5 MG PO DAILY, (Reported) Spironolactone 25 Mg Tablet, 25 MG PO DAILY, (Reported) Sulfasalazine 500 Mg Tablet, 1,500 MG PO BID, (Reported) take 3 (500mg) tabs Tiotropium [place] 4 Gm Mist.inhal, 2 PUFF IH DAILY, (Reported) Trazodone HCl 50 Mg Tablet, 75 MG PO HS, (Reported) give 1 1/2 of 50mg tab Ubidecarenone/Vit E Acetate 1 Each Capsule, 100 MG PO DAILY, (Reported) Patient Home Medication List Home Medication List Reviewed: Yes Physical Exam-Cardiology Physical Exam Vital Signs/I&O 10/02/19 10/02/19 10/02/19 10/02/19 06:56 07:00 07:03 08:00 Temp 36.7 36.7 Pulse 77 72 Resp 21 B/P (MAP) 109/75 (86) Pulse Ox 96 O2 Delivery Nasal Cannula Nasal Cannula O2 Flow Rate 2.00 2.00 10/02/19 10/02/19 10/02/19 10/02/19 08:00 09:00 09:40 10:00 Pulse 84 78 73 Resp 20 14 14 B/P (MAP) 103/69 (80) 105/77 (86) 113/83 (93) Pulse Ox 100 99 98 O2 Delivery Nasal Cannula Nasal Cannula Nasal Cannula Nasal Cannula O2 Flow Rate 2.00 2.00 2.00 2.00 10/02/19 10/02/19 10/02/19 10/02/19 11:00 12:00 12:00 12:00 Temp 36.6 Pulse 79 71 Resp 28 19 B/P (MAP) 106/84 (91) 127/108 (114) Pulse Ox 98 96 99 O2 Delivery Nasal Cannula Nasal Cannula Nasal Cannula O2 Flow Rate 2.00 2.00 2.00 10/02/19 10/02/19 10/02/19 10/02/19 12:42 13:00 14:00 15:00 Pulse 79 75 101 87 Resp 11 47 16 B/P (MAP) 105/77 (86) 129/76 (93) 130/79 (96) Pulse Ox 98 97 97 O2 Delivery Nasal Cannula Nasal Cannula Nasal Cannula O2 Flow Rate 2.00 2.00 2.00 10/02/19 10/02/19 10/02/19 10/02/19 16:00 16:00 16:11 16:17 Temp 37.4 37.4 Pulse 73 84 Resp 21 B/P (MAP) 133/90 (104) Pulse Ox 97 94 98 O2 Delivery Nasal Cannula Nasal Cannula O2 Flow Rate 2.00 2.00 FiO2 28 10/02/19 10/02/19 17:00 18:00 Pulse 82 80 Resp 8 25 B/P (MAP) 116/98 (104) 122/68 (86) Pulse Ox 98 98 O2 Delivery Nasal Cannula Nasal Cannula O2 Flow Rate 2.00 2.00 Capillary Refill : Less Than 3 Seconds Constitutional: appears stated age, AAO x 3; No apparent distress; well- developed, well-nourished HEENT: PERRL; No discharge; hearing is well preserved, oral hygience is good; N o ulceration, No xanthelasmas are seen Neck: No carotid bruit; carotid pulses are 2 + bilaterally Respiratory: chest is bilaterally symmetric, lungs clear to auscultation Cardiovascular: regular rate-rhythm, S1 and S2; No diastolic murmur, No systolic murmur Gastrointestinal: soft, audible bowel sounds; No spleenomegaly Rectal: deferred Extremities: normal range of motion, non-tender, normal inspection; No clubbing, No cyanosis; no lower extremity edema bilateral; No significant edema Neurologic/Psychiatric: no motor/sensory deficits, alert, normal mood/affect, oriented x 3, power is 5/5 both on sides Skin: normal color, warm/dry; No rash, No ulcerations Data Review Labs Laboratory Tests 10/02/19 08:32: Prothrombin Time 13.9, INR Comment 1.0, Activated Partial Thromboplast Time 33, Troponin I 0.227H, B-Type Natriuretic Peptide 71.5 10/02/19 13:46: Troponin I 0.530*H ECG Impression ECG Initial ECG Rhythm: Normal Sinus Initial ECG Impression: Nonspecific Changes A/P-Cardiology Assessment/Admission Diagnosis Chest pain, positive cardiac enzymes, CAD/CABG, Previous history of valve replacement, Paroxysmal atrial fibrillation, Cardiomyopathy Plan Chest pain, positive cardiac enzymes. Previous history of CAD/CABG. Coronary angiography is recommended. Informed consent was taken. Narrow complex tachycardia with hemodynamic compromise requiring emergent cardioversion. Currently in sinus rhythm. S/P CABG x 1 vessel with veing graft to the DIRECTOR TRANSPORTATION and the RCA, Trifecta #23 tissue aortic valve replacement, Mitral valve repair with a 26 mm [place] ring, and Maze procedure on August 10, [address] Zafar at [facility] Sternal non-healing post cardiac surtery. CT of 12/19/16: There are no signs of healing in the sternotomy with displacement up to 2.5 cm anteriorly of the left side of the sternum compared to the right side. There is suggestion of asymmetry and smaller size of the sternotomy on the left side which could be in part related to bone resorption. Correlate with operative findings. No fluid colle ction at the site to suggest an abscess. This is being managed being managed by Dr. Zafar, his CV surgeon Card cath of 03/01/16: moderately severe mitral regurg, mod aortic stenosis (valve area 1.1 sq cm), 70% prox stenosis of RCA, LVEF 50%, elevated LVEDP, pulmonary hypertension with mean PA pressure 42 mmHg and pulmonary vascular resistance 4 Wood units History of Chronic a fib with an average vent response of 92 bpm on Holter of 02/17/16 - EKG of shows a-fib with a controlled ventricular response Previously on chronic warfarin anticoag, which was being followed by CAROLYN Pike - [facility] following surgery listed above (d/t a-fib being resolved per pt at the time of CABG); currently on oral anticoagulation. MPI at [place], [place]: LVEF 45%, small amount of inferoapical ischemia Echo Mar 2015 at [facility]: mild LVH, biatrial enlargement, LVEF 45-50%, mod (mean gradient 18, valve area 0.8 sq cm), mild to mod AI, mod MR, PASP could not be calculated Echo 02/18/16 at [place], [place]: moderately severe to severe MR, severe aortic stenosis with valve area approx 0.9 sq cm, PASP 50-55 mmHg, LVEF appox 50%, mild LVH H/o COPD Obesity with BMI approx 37 Quit tobacco use in 1971 Leg tiredness/claudication Mild carotid arterial disease per u/s of March 18, 2016 CKD stage 2 MANN with segmental pressures of March 2016 is consistent with bilateral distal peripheral arterial disease No evidence of AAA per u/s of 03-18-16 Thank you for your consultation. Please call me if you have any questions. Jovana Barahona MD, FACP, FACC, FSCAI, FHRS, CCDS Interventional Cardiology Cardiac Electrophysiology Vascular Medicine and Endovascular Interventions Clinical Quality Measures DVT/VTE Risk/Contraindication: Risk Factor Score Per Nursin RFS Level Per Nursing on Admit: 4+=Very High Emy BARAHONA MD Oct 02, 2019 18:39
[2019-10-02] MEDS ORDERED: APIXABAN 5 MG (ELIQUIS) TABLET PO SCH (21:00)
[2019-10-02] MEDS: ADVAIR HFA 115/21 MCG INHALER 8 GM IH SCH (21:20)
[2019-10-02] MEDS: RT-ALBUTEROL/IPRATROPIUM 3 ML (DUONEB) VIAL INH SCH (21:20)
[2019-10-02] MEDS: traZODone 50 MG (DESYREL) TAB PO SCH (21:45)
[2019-10-02] MEDS: APIXABAN 5 MG (ELIQUIS) TABLET PO SCH (21:45)
[2019-10-03] VITALS (19 sets, daily range): BP systolic 108–134; BP diastolic 61–90
[2019-10-03] MEDS: RT-ALBUTEROL/IPRATROPIUM 3 ML (DUONEB) VIAL INH SCH ×3 (02:45→15:08)
[2019-10-03 03:29] LABS: BASOPHILS % (AUTO) 0 % (0-10); EOSINOPHILS # (AUTO) 0.1 10^3/uL (0.0-0.3); EOSINOPHILS % (AUTO) 1 % (0-10); HEMATOCRIT 37 % (40-54); LYMPHOCYTES # (AUTO) 1.6 X 10^3 (1.0-4.0); LYMPHOCYTES % (AUTO) 18 % (12-44); MEAN CORPUSCULAR HEMOGLOBIN 31 PG (25-34); MEAN CORPUSCULAR HGB CONC 32 G/DL (32-36); MEAN CORPUSCULAR VOLUME 98 FL (80-99); MEAN PLATELET VOLUME 9.2 FL (7.4-10.4); MONOCYTES # (AUTO) 0.8 X 10^3 (0.0-1.0); MONOCYTES % (AUTO) 8 % (0-12); NEUTROPHILS # (AUTO) 6.8 X 10^3 (1.8-7.8); NEUTROPHILS % (AUTO) 73 % (42-75); PLATELET COUNT 152 10^3/uL (130-400); RED CELL DISTRIBUTION WIDTH 14.1 % (10.0-14.5); WHITE BLOOD COUNT 9.2 10^3/uL (4.3-11.0)
[2019-10-03 03:44] LABS: BUN/CREATININE RATIO 20; CALCIUM 8.7 MG/DL (8.5-10.1); CARBON DIOXIDE 26 MMOL/L (21-32); CHLORIDE 99 MMOL/L (98-107); CREATININE SERUM 1.05 MG/DL (0.60-1.30); GFR ESTIMATED > 60; GLUCOSE 149 MG/DL (70-105); MAGNESIUM 1.7 MG/DL (1.6-2.4); PHOSPHORUS 2.7 MG/DL (2.3-4.7); POTASSIUM 3.8 MMOL/L (3.6-5.0); SODIUM 138 MMOL/L (135-145)
[2019-10-03] MEDS: POTASSIUM CL 10MEQ/50ML IVPB 50 ML IV SCH (04:02)
[2019-10-03] MEDS: MAGNESIUM 1 GM/100 ML IVPB 100 ML IV SCH ×3 (04:02→09:55)
[2019-10-03] MEDS: KCL 20 MEQ TAB (K-DUR) PO SCH (04:03)
--- NOTE | 2019-10-03 05:40 | Pulmonary Consultation ---
History of Present Illness History of Present Illness Date Seen by Provider: Oct 03, 2019 Time Seen by Provider: 05:35 Date of Admission Allergies and Home Medications Allergies Coded Allergies: Penicillins (Verified Allergy, Unknown, 03/01/16) cephalexin (Verified Allergy, Unknown, 03/01/16) ciprofloxacin (Verified Allergy, Unknown, 03/01/16) methotrexate (Verified Allergy, Unknown, 03/01/16) Home Medications Acetaminophen 650 Mg Tablet.er, 650 MG PO Q4H PRN for FEVER, (Reported) Albuterol Sulfate 1 Puff Puff, 2 PUFF IH Q6H PRN for SHORTNESS OF BREATH, (R eported) 1 PUFF = 90 MCG Apixaban 5 Mg Tablet, 5 MG PO BID, (Reported) Aspirin 81 Mg Tablet.dr, 81 MG PO DAILY, (Reported) Atorvastatin Calcium 80 Mg Tablet, 80 MG PO HS, (Reported) Bisacodyl 5 Mg Tablet.dr, 5 MG PO DAILY PRN for CONSTIPATION-1ST LINE, (Reported) Cholecalciferol (Vitamin D3) 1,000 Unit Capsule, 1,000 UNIT PO DAILY, (Reported) Clindamycin HCl 300 Mg Capsule, 300 MG PO TID Prescribed by: BUCK ARMENDARIZ on 01/05/17 1039 Digoxin 250 Mcg Tablet, 250 MCG PO DAILY, (Reported) Fesoterodine Fumarate 4 Mg Tab.sr.24h, 4 MG PO DAILY, (Reported) Finasteride 5 Mg Tablet, 5 MG PO HS, (Reported) Fluticasone Propionate 16 Gm [place].susp, 1 SPRAY NSEACH DAILY, (Reported) Furosemide 40 Mg Tablet, 40 MG PO DAILY PRN, (Reported) Guaifenesin 100 Mg/5 Ml Liquid, 100 MG PO DAILY, (Reported) Loratadine 10 Mg Tablet, 10 MG PO DAILY PRN for allergies, (Reported) Metoprolol Succinate 100 Mg Tab.er.24h, 50 MG PO DAILY, (Reported) take 1/2 of 100mg tab [place] 3 Polyunsat Fatty Acids 1,000 Mg Cap, 1,000 MG PO BID, (Reported) Pantoprazole Sodium 40 Mg Tablet.dr, 40 MG PO BID, (Reported) Prednisone 5 Mg Tablet, 5 MG PO DAILY, (Reported) Spironolactone 25 Mg Tablet, 25 MG PO DAILY, (Reported) Sulfasalazine 500 Mg Tablet, 1,500 MG PO BID, (Reported) take 3 (500mg) tabs Tiotropium [place] 4 Gm Mist.inhal, 2 PUFF IH DAILY, (Reported) Trazodone HCl 50 Mg Tablet, 75 MG PO HS, (Reported) give 1 1/2 of 50mg tab Ubidecarenone/Vit E Acetate 1 Each Capsule, 100 MG PO DAILY, (Reported) Past Rovpomw-Ehwphp-Dmhkvr Hx Past Med/Social Hx: Reviewed Nursing Past Med/Soc Hx Patient Social History Type Used: Cigarettes Former Smoker, Quit: May 02, 1971 2nd Hand Smoke Exposure: No Recent Hopitalizations: No Immunizations Up To Date Tetanus Booster (TDap): More than 5yrs Date of Pneumonia Vaccine: Dec 02, 2017 Date of Influenza Vaccine: Dec 20, 2017 Seasonal Allergies Seasonal Allergies: Yes (hayfever) Past Medical History Surgeries: Yes (kidney sx, hernia repair) Adenoidectomy, CABG, Tonsillectomy, Valve Replacement Respiratory: Yes Asthma, Pneumonia, COPD Currently Using CPAP: No Currently Using BIPAP: No Cardiac: Yes (CABG, ) Atrial Fibrillation, Coronary Artery Disease, High Cholesterol, Hypertension, Valvular Heart Disease Neurological: No Reproductive Disorders: No Genitourinary: Yes (Lt partial nephrectomy r/t Cancer) Bladder Infection Gastrointestinal: Yes Gastroesophageal Reflux, Chronic Constipation Musculoskeletal: Yes Arthritis, Rheumatoid Arthritis Endocrine: Yes (pre diabetic controlled with diet/exercise) HEENT: Yes Cataract Loss of Vision: Bilateral Hearing Impairment: Hard of Hearing, Hearing Aide Right Cancer: Yes (Lt partial nephrectomy d/t cancer) Kidney Did You Recieve Any Treatments: No What Type of Treatment Did You: Surgical Intervention Psychosocial: No Depression Integumentary: No Blood Disorders: Yes (ANEMIA) Adverse Reaction/Blood Tranf: No Family Medical History Reviewed Nursing Family Hx Cardiovascular disease G8 BROTHER G8 SISTER No Pertinent Family Hx Review of Systems Time Seen by Provider: 05:45 Sepsis Event Evaluation Height, Weight, BMI Height: 5'3.00" Weight: 204lbs. 0.0oz. 92.638434iq; 37.50 BMI Method:Stated Exam Exam Vital Signs Date Time Temp Pulse Resp B/P (MAP) Pulse Ox O2 Delivery O2 Flow Rate FiO2 10/03/19 04:00 95 Nasal Cannula 2.00 10/03/19 03:00 70 22 126/90 (102) 94 Nasal Cannula 2.00 10/03/19 02:45 96 Nasal Cannula 2.00 28 10/03/19 02:00 75 14 123/73 (90) 94 Nasal Cannula 2.00 10/03/19 01:00 81 19 118/63 (81) 95 Nasal Cannula 2.00 10/03/19 01:00 81 10/03/19 00:00 95 Nasal Cannula 2.00 10/03/19 00:00 87 27 113/71 (85) 95 Nasal Cannula 2.00 10/02/19 23:56 37.3 10/02/19 23:00 84 26 117/87 (97) 94 Nasal Cannula 2.00 10/02/19 22:00 72 11 118/59 (78) 94 Nasal Cannula 2.00 10/02/19 21:20 97 Nasal Cannula 2.00 28 10/02/19 21:00 75 13 122/65 (84) 96 Nasal Cannula 2.00 10/02/19 20:32 70 22 112/59 (76) 97 Nasal Cannula 2.00 10/02/19 20:00 93 Nasal Cannula 2.00 10/02/19 20:00 77 121/92 (102) 97 Nasal Cannula 2.00 10/02/19 19:24 37.2 10/02/19 19:00 80 10/02/19 19:00 80 18 132/75 (94) 97 Nasal Cannula 2.00 10/02/19 18:00 80 25 122/68 (86) 98 Nasal Cannula 2.00 10/02/19 17:00 82 8 116/98 (104) 98 Nasal Cannula 2.00 10/02/19 16:17 37.4 84 98 28 10/02/19 16:11 94 Nasal Cannula 2.00 10/02/19 16:00 37.4 10/02/19 16:00 73 21 133/90 (104) 97 Nasal Cannula 2.00 10/02/19 15:00 87 16 130/79 (96) 97 Nasal Cannula 2.00 10/02/19 14:00 101 47 129/76 (93) 97 Nasal Cannula 2.00 10/02/19 13:00 75 11 105/77 (86) 98 Nasal Cannula 2.00 10/02/19 12:42 79 10/02/19 12:00 71 19 127/108 (114) 99 Nasal Cannula 2.00 10/02/19 12:00 36.6 10/02/19 12:00 96 Nasal Cannula 2.00 10/02/19 11:00 79 28 106/84 (91) 98 Nasal Cannula 2.00 10/02/19 10:00 73 14 113/83 (93) 98 Nasal Cannula 2.00 10/02/19 09:40 Nasal Cannula 2.00 10/02/19 09:00 78 14 105/77 (86) 99 Nasal Cannula 2.00 10/02/19 08:00 84 20 103/69 (80) 100 Nasal Cannula 2.00 10/02/19 08:00 36.7 10/02/19 07:03 72 10/02/19 07:00 Nasal Cannula 2.00 10/02/19 06:56 36.7 77 21 109/75 (86) 96 Nasal Cannula 2.00 I & O 10/03/19 07:00 Intake Total 650 ml Output Total 1415 ml Balance -765 ml Height & Weight Height: 5'3.00" Weight: 204lbs. 0.0oz. 92.615319zl; 37.50 BMI Method:Stated General Appearance: No Apparent Distress, Chronically ill (f) HEENT: PERRL/EOMI, Moist Mucous Membranes Neck: Other (obscured by abdul) Respiratory: Lungs Clear, No Accessory Muscle Use, No Respiratory Distress Cardiovascular: No Murmur, Irregularly Irregular Capillary Refill: Less Than 3 Seconds Extremity: Normal Capillary Refill, No Calf Tenderness, No Pedal Edema Neurologic/Psychiatric: Alert, Oriented x3, Normal Mood/Affect Skin: Normal Color, Warm/Dry Results Lab Laboratory Tests 10/03/19 03:17 Assessment/Plan Assessment/Plan Chronic respiratory failure -Oxygen -Monitor COPD Afib RVR s/p cardioversion at [facility] -Cardiolgoy is following CAD s/p CABG -Plan is for heart cath today HTN A-fib with RVR CAD s/p CABG NORIS JANE DO Oct 03, 2019 05:40
[2019-10-03] MEDS: ADVAIR HFA 115/21 MCG INHALER 8 GM IH SCH ×2 (06:42→19:48)
[2019-10-03] MEDS ORDERED: FOLIC ACID PO (07:46)
[2019-10-03] MEDS ORDERED: CNC1KV SC (07:46)
[2019-10-03] MEDS ORDERED: FLUT1BLS3 INH (07:46)
[2019-10-03] MEDS ORDERED: APIX2.5T PO (07:46)
[2019-10-03] MEDS ORDERED: ALB0.5V INH (07:46)
[2019-10-03] MEDS ORDERED: FURO20TA4 PO (07:46)
[2019-10-03] MEDS ORDERED: FERR325T18 PO (07:46)
[2019-10-03] MEDS ORDERED: TMSL.4C PO (07:46)
[2019-10-03] MEDS ORDERED: CHOL100048 PO (07:46)
[2019-10-03] MEDS ORDERED: DOCU-238 PO (07:46)
--- NOTE | 2019-10-03 07:53 | NUR ---
I ENTERED THE MED REC USING THE MEDICATION LIST FROM [facility]
--- NOTE | 2019-10-03 08:31 | Diagnostic Imaging Report ---
Indication: Tachycardia Portable chest 4:22 AM There is cardiomegaly with pulmonary vascular congestion. There are postoperative changes from a median sternotomy. IMPRESSION: Congestive heart failure. There is a shallower inspiration on today's film compared to the previous day. Dictated by: Dictated on workstation # [id number]
[2019-10-03] MEDS ORDERED: LIDOCAINE 1% INJ 20 ML 20 ML VIAL ONE (09:19)
[2019-10-03] MEDS ORDERED: HEParin (CATH LAB) 2,000 ML IV ONE (09:19)
[2019-10-03] MEDS: DIGOXIN 0.25 MG (LANOXIN) TAB PO SCH (09:54)
[2019-10-03] MEDS: APIXABAN 5 MG (ELIQUIS) TABLET PO SCH ×2 (09:55→19:45)
[2019-10-03] MEDS ORDERED: NS IV 1000 ML 1,000 ML ONE (10:45)
[2019-10-03] MEDS ORDERED: fentaNYL INJECTION 100 MCG/2 ML AMP ONE (10:45)
[2019-10-03] MEDS ORDERED: MIDAZOLAM 5 MG/5 ML (VERSED) VIAL ONE (10:45)
[2019-10-03] MEDS ORDERED: PATIENT MAY USE OWN MEDS, ALL PO SCH (12:15)
--- NOTE | 2019-10-03 12:15 | NUR ---
Patient arrived back to room ICU12. Patient is alert and oriented. Chanelle MC from cath laboratory technician at bedside. Mynx to right groin, bilateral dorsalis pedis pulses normal upon palpitation. Bedrest explained to patient. patient nodded and showed understanding. Will continue to closely monitor.
--- NOTE | 2019-10-03 12:22 | Cardiology Progress Note ---
Cardiology SOAP Progress Note Subjective: No cardiac complaints. Chest pain resolved. Objective: I&O/Vital Signs 10/03/19 10/03/19 10/03/19 10/03/19 01:00 01:00 02:00 02:45 Pulse 81 81 75 Resp 19 14 B/P (MAP) 118/63 (81) 123/73 (90) Pulse Ox 95 94 96 O2 Delivery Nasal Cannula Nasal Cannula Nasal Cannula O2 Flow Rate 2.00 2.00 2.00 FiO2 28 10/03/19 10/03/19 10/03/19 10/03/19 03:00 04:00 04:00 05:00 Pulse 70 84 85 Resp 22 26 25 B/P (MAP) 126/90 (102) 125/73 (90) 118/72 (87) Pulse Ox 94 95 94 95 O2 Delivery Nasal Cannula Nasal Cannula Nasal Cannula Nasal Cannula O2 Flow Rate 2.00 2.00 2.00 2.00 10/03/19 10/03/19 10/03/19 10/03/19 06:00 06:47 06:49 07:00 Pulse 80 87 Resp 29 21 B/P (MAP) 110/78 (89) 110/62 (78) Pulse Ox 95 96 96 92 O2 Delivery Nasal Cannula Nasal Cannula Nasal Cannula Nasal Cannula O2 Flow Rate 2.00 2.00 2.00 2.00 FiO2 28 10/03/19 10/03/19 10/03/19 10/03/19 07:00 08:00 08:00 08:00 Temp 37.3 Pulse 86 87 Resp 21 B/P (MAP) 122/75 (91) Pulse Ox 95 95 O2 Delivery Nasal Cannula Nasal Cannula O2 Flow Rate 2.00 2.00 10/03/19 10/03/19 10/03/19 09:00 10:00 11:00 Pulse 85 83 82 Resp 25 27 33 B/P (MAP) 108/61 (77) 119/63 (81) Pulse Ox 96 98 97 O2 Delivery Nasal Cannula Nasal Cannula Nasal Cannula O2 Flow Rate 2.00 2.00 2.00 10/03/19 00:00 Intake Total 650 ml Output Total 915 ml Balance -265 ml Weight (Pounds): 204 Weight (Ounces): 0.0 Weight (Calculated Kilograms): [id number] Constitutional: appears stated age, AAO x 3; No apparent distress; well- developed, well-nourished Respiratory: chest is bilaterally symmetric, lungs clear to auscultation Cardiovascular: regular rate-rhythm, S1 and S2; No diastolic murmur, No systolic murmur Gastrointestional: soft, audible bowel sounds; No spleenomegaly Extremities: normal range of motion, non-tender, normal inspection; No cl ubbing, No cyanosis; no lower extremity edema bilateral; No significant edema Neurologic/Psychiatric: no motor/sensory deficits, alert, normal mood/affect, oriented x 3, power is 5/5 both on sides Skin: normal color, warm/dry; No rash, No ulcerations Results/Procedures: Labs Laboratory Tests 10/02/19 13:46: Troponin I 0.530*H 10/03/19 03:17: White Blood Count 9.2, Red Blood Count 3.83L, Hemoglobin 12.0L, Hematocrit 37L, Mean Corpuscular Volume 98, Mean Corpuscular Hemoglobin 31, Mean Corpuscular Hemoglobin Concent 32, Red Cell Distribution Width 14.1, Platelet Count 152, Mean Platelet Volume 9.2, Neutrophils (%) (Auto) 73, Lymphocytes (%) (Auto) 18, Monocytes (%) (Auto) 8, Eosinophils (%) (Auto) 1, Basophils (%) (Auto) 0, Neutrophils # (Auto) 6.8, Lymphocytes # (Auto) 1.6, Monocytes # (Auto) 0.8, Eosinophils # (Auto) 0.1, Basophils # (Auto) 0.0, Sodium Level 138, Potassium Level 3.8, Chloride Level 99, Carbon Dioxide Level 26, Anion Gap 13, Blood Urea Nitrogen 21H, Creatinine 1.05, Estimat Glomerular Filtration Rate > 60, BUN/Creatinine Ratio 20, Glucose Level 149H, Calcium Level 8.7, Phosphorus Level 2.7, Magnesium Level 1.7 A/P: Assessment/Dx: Chest pain, positive cardiac enzymes, CAD/CABG, Previous history of valve replacement, Paroxysmal atrial fibrillation, Cardiomyopathy Plan: Chest pain, positive cardiac enzymes. Previous history of CAD/CABG. Coronary angiography is recommended. Informed consent was taken. Narrow complex tachycardia with hemodynamic compromise requiring emergent cardioversion. Currently in sinus rhythm. S/P CABG x 1 vessel with veing graft to the MICA SPLITTER and the RCA, Trifecta #23 tissue aortic valve replacement, Mitral valve repair with a 26 mm [place] ring, and Maze procedure on August 10, [address] Zafar at [facility] Sternal non-healing post cardiac surtery. CT of 12/19/16: There are no signs of healing in the sternotomy with displacement up to 2.5 cm anteriorly of the left side of the sternum compared to the right side. There is suggestion of asymmetry and smaller size of the sternotomy on the left side which could be in part related to bone resorption. Correlate with operative findings. No fluid collection at the site to suggest an abscess. This is being managed being managed by Dr. Zafar, his CV surgeon Card cath of 03/01/16: moderately severe mitral regurg, mod aortic stenosis (valve area 1.1 sq cm), 70% prox stenosis of RCA, LVEF 50%, elevated LVEDP, pulmonary hypertension with mean PA pressure 42 mmHg and pulmonary vascular resistance 4 Wood units History of Chronic a fib with an average vent response of 92 bpm on Holter of 02/17/16 - EKG of shows a-fib with a controlled ventricular response Previously on chronic warfarin anticoag, which was being followed by CAROLYN Pike - [facility] following surgery listed above (d/t a-fib being resolved per pt at the time of CABG); currently on oral anticoagulation. MPI at [place], [place]: LVEF 45%, small amount of inferoapical ischemia Echo Mar 2015 at [facility]: mild LVH, biatrial enlargement, LVEF 45-50%, mod (mean gradient 18, valve area 0.8 sq cm), mild to mod AI, mod MR, PASP could not be calculated Echo 02/18/16 at [place], [place]: moderately severe to severe MR, severe aortic stenosis with valve area approx 0.9 sq cm, PASP 50-55 mmHg, LVEF appox 50%, mild LVH H/o COPD Obesity with BMI approx 37 Quit tobacco use in 1971 Leg tiredness/claudication Mild carotid arterial disease per u/s of March 18, 2016 CKD stage 2 MANN with segmental pressures of March 2016 is consistent with bilateral distal peripheral arterial disease No evidence of AAA per u/s of 03-18-16 Thank you for your consultation. Please call me if you have any questions. Jovana Barahona MD, FACP, FACC, FSCAI, FHRS, CCDS Interventional Cardiology Cardiac Electrophysiology Vascular Medicine and Endovascular Interventions Emy BARAHONA MD Oct 03, 2019 12:22
--- NOTE | 2019-10-03 12:23 | Cardiac Procedure Note-CS/ASA ---
Pre-Procedure Note Pre-Op Procedure Note H&P Reviewed The H&P was reviewed, patient examined and no changes noted. Date H&P Reviewed: Oct 03, 2019 Time H&P Reviewed: 10:00 Conscious Sedation Pre-Proced Time 10:00 ASA Score 3 For ASA 3 and 4: Consider anesthesia and medical clearance. Also, for patients with a history of failed moderate sedation consider anesthesia. Airway Lungs Heart ASA score ASA 1: a normal healthy patient ASA 2: a patient with a mild systemic disease (mid diabetes, controlled hypertension, obesity ASA 3: a patient with a severe systemic disease that limits activity (angina, COPD, prior Myocardial infarction) ASA 4: a patient with an incapacitating disease that is a constant threat to life (CHF, renal failure) ASA 5: a moribund patient not expected to survive 24 hrs. (ruptured aneurysm) ASA 6: a declared brain- patient whose organs are being harvested. For emergent operations, add the letter E after the classification Mallampati Classification Grade 1 Sedation Plan Analgesia, Amnesia, Plan communicated to team members, Discussed options with patient/fam, Discussed risks with patient/fam The patient is an appropriate candidate to undergo the planned procedure, sedation, and anesthesia. The patient immediately re-assessed prior to indication. Emy TIMMONS MD Oct 03, 2019 12:22
--- NOTE | 2019-10-03 12:23 | Coronary Angiography Report ---
Coronary Angiography Report DATE OF PROCEDURE: 10/03/19 INDICATION: Chest pain, borderline positive troponin, atrial fibrillation with RVR requiring cardioversion PREOPERATIVE DIAGNOSIS: Chest pain, borderline positive troponin, atrial fibrillation with RVR requiring cardioversion POSTOPERATIVE DIAGNOSIS: Patent graft to the RCA, no other severe disease noted. HISTORY: This is a 79-year-old gentleman with previous history of CAD with CABG. Aortic valve replacement. History of paroxysmal atrial fibrillation. He presented to [facility] with tachycardia, narrow complex. Adenosine was given which did not convert the tachycardia. Tachycardia was associated with hemodynamic compromise therefore cardioversion was performed and patient converted to sinus rhythm. He was transferred to our hospital. He was in sinus rhythm. Chest pain subsided. Borderline positive troponin. Therefore, the patient was scheduled for coronary angiography. PROCEDURES PERFORMED: 1.Coronary angiography. 2.Left heart catheterization. 3. Aortic arch angiogram, medical necessity: To rule out aneurysm/dissection and to look for any other grafts. 4. Saphenous vein graft angiography as well as COLUNGA angiography. COMPLICATIONS: None. SPECIMENS: None. ESTIMATED BLOOD LOSS: 10 mL ANESTHESIA: Conscious sedation ANTICOAGULATION: IV heparin CONTRAST: 144 mL. FLUOROSCOPY: 9.6 minutes. FLOUROSCOPY DOSE: 1641 mgy. PROCEDURE DETAILS: The patient is a 79 male and was brought to the ear mold laboratory technician after informed consent was taken. All the risks and complications were explained in detail; this included the risk of bleeding, vascular damage, stroke, [place] and even . The patient was draped and prepped in the usual sterile fashion. Access was gained in the right femoral artery with a 5 Somali sheath. Right coronary artery was engaged with a JR4 catheter. COLUNGA angiography was done with a JR4 catheter. Saphenous vein graft to the RCA was engaged with an RCB catheter. Left coronary angiography was done with a JL4 catheter. Left heart catheterization and aortic arch angiogram was done with a pigtail catheter. FINDINGS: 1.Left main: Mild disease. 2.LAD: Mild diffuse disease. 3.Left circumflex artery: Mild disease. 4.RCA: Severe proximal disease. 5.Left heart catheterization: LV pressure 107/16 mmHg. LVEDP 22 mmHg. Aortic pressure 107/67 mmHg. LVEF of 40 percent with enlarged LV with global hypokinesis. No gradient across the aortic valve. 6. COLUNGA angiography: free COLUNGA. 7. Saphenous vein angiography to the distal RCA. Patent graft with no severe stenosis. 8. Aortic arch angiogram: No evidence of aneurysm or dissection. Patent proximal segments of the great arteries. CONCLUSIONS: 1. Mild CAD with patent graft to the distal RCA. 2. No gradient across the aortic valve. 3. Moderately reduced LV function. Jovana Barahona MD, FACP, FACC, [facility] Interventional Cardiology Emy BARAHONA MD Oct 03, 2019 12:23
--- NOTE | 2019-10-03 12:57 | Discharge Summary ---
Diagnosis/Chief Complaint Date of Admission Oct 02, 2019 at 06:55 Date of Discharge Admission Diagnosis A-fib with RVR Primary Care Wayne Barba DO Discharge Summary Discharge Physical Exam Allergies: Coded Allergies: Penicillins (Verified Allergy, Unknown, 03/01/16) cephalexin (Verified Allergy, Unknown, 03/01/16) ciprofloxacin (Verified Allergy, Unknown, 03/01/16) methotrexate (Verified Allergy, Unknown, 03/01/16) Vitals & I&Os Vital Signs Date Time Temp Pulse Resp B/P (MAP) Pulse Ox O2 Delivery O2 Flow Rate FiO2 10/05/19 12:04 37.1 70 20 144/81 (102) 94 Nasal Cannula 2.00 10/04/19 10:32 40 General Appearance: No Apparent Distress, Chronically ill, Obese Respiratory: Lungs Clear, No Respiratory Distress Cardiovascular: No Murmur, Irregularly Irregular Gastrointestinal: Normal Bowel Sounds, Non Tender, Soft Neurologic/Psychiatric: Alert, Oriented x3 Hospital Course Pt was admitted to cardiac stepdown due to a-fib with RVR necessitating cardioversion. He was seen at an outside facility and underwent cardioversion due to hypotension. This improved his rate and he was transferred here. He did well but had a slight troponin elevation. He was taken to cath for this which was clean. He was discharged home in stable condition to follow up with her primary care doctor. Labs (last 24 hrs) Laboratory Tests 10/05/19 05:17: White Blood Count 7.6, Red Blood Count 3.42L, Hemoglobin 10.7L, Hematocrit 34L, Mean Corpuscular Volume 98, Mean Corpuscular Hemoglobin 31, Mean Corpuscular H emoglobin Concent 32, Red Cell Distribution Width 13.7, Platelet Count 116L, Mean Platelet Volume 10.2, Neutrophils (%) (Auto) 69, Lymphocytes (%) (Auto) 17, Monocytes (%) (Auto) 13H, Eosinophils (%) (Auto) 1, Basophils (%) (Auto) 0, Neutrophils # (Auto) 5.2, Lymphocytes # (Auto) 1.3, Monocytes # (Auto) 1.0, Eosinophils # (Auto) 0.1, Basophils # (Auto) 0.0, Sodium Level 138, Potassium Level 4.1, Chloride Level 105, Carbon Dioxide Level 24, Anion Gap 9, Blood Urea Nitrogen 14, Creatinine 0.80, Estimat Glomerular Filtration Rate > 60, BUN/Creatinine Ratio 18, Glucose Level 116H, Calcium Level 8.1L, Phosphorus Level 1.8L, Magnesium Level 2.4 Microbiology 10/03/19 Blood Culture - Preliminary, Resulted No growth Patient resulted labs reviewed. Imaging: Reviewed Imaging Report Discussion & Recommendations Discharge Planning: >30 minutes discharge planning Discharge Home Medications: Active Scripts Active Reported Albuterol Sulfate 2.5 Mg/0.5 Ml Vial.neb 2.5 Mg INH Q6H Stool Softener (Docusate Sodium) 100 Mg Capsule 100 Mg PO BID PRN Flomax (Tamsulosin HCl) 0.4 Mg Cap 0.4 Mg PO 1700 W/ SUPPER Furosemide 20 Mg Tablet 20 Mg PO 1400 Ferrous Sulfate 325 Mg Tablet 325 Mg PO 1000 Cyanocobalamin Injection (Cyanocobalamin) 1,000 Mcg/Ml Inj 1,000 Mcg SC MONTLY [Folic Acid 0.1MG] 0.1 Tab 0.1 Mg PO DAILY Trelegy Ellipta 100-62.5-25 (Fluticasone/Umeclidin/Vilanter) 1 Each Blst.w.dev 1 Puff INH DAILY Eliquis (Apixaban) 2.5 Mg Tablet 2.5 Mg PO BID Vitamin D3 (Cholecalciferol (Vitamin D3)) 25 Mcg Capsule 25 Mcg PO DAILY Furosemide 40 Mg Tablet 40 Mg PO DAILY Toviaz (Fesoterodine Fumarate) 4 Mg Tab.sr.24h 4 Mg PO DAILY Guaifenesin 100 Mg/5 Ml Liquid 100 Mg PO DAILY Prednisone 5 Mg Tablet 5 Mg PO DAILY Aldactone (Spironolactone) 25 Mg Tablet 25 Mg PO DAILY Digoxin 250 Mcg Tablet 250 Mcg PO DAILY Fluticasone Propionate 16 Gm Sinclair.susp 1 Sinclair NSEACH DAILY Trazodone HCl 50 Mg Tablet 75 Mg PO HS TAKES 1 & (50MG) TABS Protonix (Pantoprazole Sodium) 40 Mg Tablet.dr 40 Mg PO BID Acetaminophen ER (Acetaminophen) 650 Mg Tablet.er 650 Mg PO BID PRN Sulfasalazine 500 Mg Tablet 1,500 Mg PO BID TAKES 3 (500MG) TABS TWICE DAILY Loratadine 10 Mg Tablet 10 Mg PO DAILY PRN Fish Oil 1,000 mg Capsule ([place] 3 Polyunsat Fatty Acids) 1,000 Mg Cap 1,000 Mg PO BID Finasteride 5 Mg Tablet 5 Mg PO HS Co Q-10 100 mg Softgel (Ubidecarenone/Vit E Acetate) 1 Each Capsule 100 Mg PO DAILY Atorvastatin Calcium 80 Mg Tablet 80 Mg PO HS Aspirin EC (Aspirin) 81 Mg Tablet.dr 81 Mg PO DAILY Instructions to patient/family Please see electronic discharge instructions given to patient. Clinical Quality Measures DVT/VTE Risk/Contraindication: Risk Factor Score Per Nursin RFS Level Per Nursing on Admit: 4+=Very High Copy Copies To 1: WAYNE BARBA KATELYN M MD Oct 03, 2019 12:57
[2019-10-03] MEDS: sulfaSALAzine 500 MG (AZULFIDINE) TAB PO SCH ×3 (14:14→18:28)
[2019-10-03] MEDS: NS IV 1000 ML 1,000 ML IV SCH ×2 (14:14→18:28)
--- NOTE | 2019-10-03 15:10 | Discharge Inst-Simple/Standard ---
Discharge Inst-Standard Patient Instructions/Follow Up Plan of Care/Instructions/FU: Please continue to take your medications as written. Please follow up with your primary care doctor within the next week to follow up this hospital stay. Activity as Tolerated: Yes Discharge Diet: Cardiac Diet Return to The Hospital For: Chest pain, shortness of breath, heart racing, fever, if you feel you are getting worse. JINA DRAKE MD Oct 03, 2019 15:09
[2019-10-03 16:13] LABS: BILIRUBIN,URINE NEGATIVE (NEGATIVE); CLARITY,URINE SL CLOUDY; COLOR,URINE YELLOW; GLUCOSE, URINE (UA) NEGATIVE (NEGATIVE); KETONES,URINE NEGATIVE (NEGATIVE); LEUKOCYTE ESTERASE ,URINE NEGATIVE (NEGATIVE); NITRITE,URINE NEGATIVE (NEGATIVE); PROTEIN,URINE NEGATIVE (NEGATIVE)
--- NOTE | 2019-10-03 16:28 | Diagnostic Imaging Report ---
INDICATION: Fever. COMPARISON: Earlier same day. FINDINGS: Single frontal radiographic view of the chest was obtained and again demonstrates moderate cardiomegaly and pulmonary vascular congestion. There is also persistent diffuse prominence of the interstitium. No large effusion or pneumothorax is seen. Sternotomy wires are noted. Overall, appearance is stable compared to earlier same day. IMPRESSION: 1. Stable exam of chest showing cardiomegaly with sequela of CHF including probable interstitial pulmonary edema. Dictated by: Dictated on workstation # [id number]
[2019-10-03 16:29] LABS: AMORPHOUS SEDIMENT,UR FEW AMOR URATES /LPF; BACTERIA,URINE TRACE /HPF; RBC,URINE 0-2 /HPF
[2019-10-03 16:46] LABS: BASOPHILS % (AUTO) 0 % (0-10); EOSINOPHILS % (AUTO) 0 % (0-10); HEMATOCRIT 38 % (40-54); HEMOGLOBIN 12.2 G/DL (13.3-17.7); LYMPHOCYTES # (AUTO) 1.2 X 10^3 (1.0-4.0); LYMPHOCYTES % (AUTO) 11 % (12-44); MEAN CORPUSCULAR HEMOGLOBIN 31 PG (25-34); MEAN CORPUSCULAR HGB CONC 32 G/DL (32-36); MEAN CORPUSCULAR VOLUME 99 FL (80-99); MEAN PLATELET VOLUME 9.6 FL (7.4-10.4); MONOCYTES # (AUTO) 1.2 X 10^3 (0.0-1.0); MONOCYTES % (AUTO) 11 % (0-12); NEUTROPHILS # (AUTO) 8.2 X 10^3 (1.8-7.8); NEUTROPHILS % (AUTO) 77 % (42-75); PLATELET COUNT 165 10^3/uL (130-400); RED CELL DISTRIBUTION WIDTH 14.5 % (10.0-14.5); WHITE BLOOD COUNT 10.6 10^3/uL (4.3-11.0)
--- NOTE | 2019-10-03 16:56 | NUR ---
SBAR report called to [facility] on 4th floor. Patient transferred to room 422 by DOTTIE Jose via bed.
--- NOTE | 2019-10-03 18:00 | NUR ---
Report received from JESUSITA Marroquin. Patient transferred from ICU to Room 422. All needs met at this time, call light in reach.
[2019-10-03] MEDS: TAMSULOSIN 0.4 MG (FLOMAX) CAP PO SCH (18:28)
[2019-10-03] MEDS: MELATONIN 3 MG TABLET PO PRN (19:41)
[2019-10-03] MEDS: traZODone 50 MG (DESYREL) TAB PO SCH (19:44)
[2019-10-03] MEDS ORDERED: RT-ALBUTEROL INHALER HFA (VENTOLIN HFA) 18 GM IH PRN (20:00)
[2019-10-04] VITALS (9 sets, daily range): BP systolic 107–133; BP diastolic 69–79
[2019-10-04] MEDS: RT-ALBUTEROL INHALER HFA (VENTOLIN HFA) 18 GM IH SCH ×5 (03:47→22:28)
[2019-10-04] MEDS: KCL 20 MEQ TAB (K-DUR) PO SCH (06:00)
[2019-10-04] MEDS: MAGNESIUM 1 GM/100 ML IVPB 100 ML IV SCH (06:00)
[2019-10-04] MEDS: POTASSIUM CL 10MEQ/50ML IVPB 50 ML IV SCH (06:00)
[2019-10-04 07:11] LABS: BASOPHILS % (AUTO) 0 % (0-10); EOSINOPHILS # (AUTO) 0.1 10^3/uL (0.0-0.3); EOSINOPHILS % (AUTO) 1 % (0-10); HEMATOCRIT 36 % (40-54); LYMPHOCYTES # (AUTO) 1.2 X 10^3 (1.0-4.0); LYMPHOCYTES % (AUTO) 11 % (12-44); MEAN CORPUSCULAR HEMOGLOBIN 31 PG (25-34); MEAN CORPUSCULAR HGB CONC 31 G/DL (32-36); MEAN CORPUSCULAR VOLUME 99 FL (80-99); MEAN PLATELET VOLUME 10.4 FL (7.4-10.4); MONOCYTES # (AUTO) 1.5 X 10^3 (0.0-1.0); MONOCYTES % (AUTO) 15 % (0-12); NEUTROPHILS # (AUTO) 7.6 X 10^3 (1.8-7.8); NEUTROPHILS % (AUTO) 73 % (42-75); PLATELET COUNT 144 10^3/uL (130-400); RED CELL DISTRIBUTION WIDTH 14.5 % (10.0-14.5); WHITE BLOOD COUNT 10.3 10^3/uL (4.3-11.0)
[2019-10-04 07:22] LABS: BUN/CREATININE RATIO 16; CALCIUM 8.4 MG/DL (8.5-10.1); CARBON DIOXIDE 25 MMOL/L (21-32); CHLORIDE 102 MMOL/L (98-107); CREATININE SERUM 0.83 MG/DL (0.60-1.30); GFR ESTIMATED > 60; GLUCOSE 143 MG/DL (70-105); MAGNESIUM 2.6 MG/DL (1.6-2.4); PHOSPHORUS 2.4 MG/DL (2.3-4.7); POTASSIUM 3.7 MMOL/L (3.6-5.0); SODIUM 137 MMOL/L (135-145)
[2019-10-04] MEDS: ADVAIR HFA 115/21 MCG INHALER 8 GM IH SCH ×2 (09:21→20:14)
[2019-10-04 09:41] LABS: ABG BASE EXCESS 2.9 MMOL/L (-2.5-2.5); ABG OXYGEN SATURATION 98 % (94-100); ABG PCO2 38 MMHG (35-45); ABG PH 7.46 (7.37-7.43); ABG PO2 150 MMHG (79-93); ABG TCO2 27.5 MMOL/L (21.0-31.0)
[2019-10-04 09:42] LABS: ALLENS TEST YES-POS; INSPIRED O2 5L; VENTILATOR NO
[2019-10-04] MEDS: DIGOXIN 0.25 MG (LANOXIN) TAB PO SCH (09:54)
[2019-10-04] MEDS: APIXABAN 5 MG (ELIQUIS) TABLET PO SCH ×2 (09:54→19:54)
[2019-10-04] MEDS: sulfaSALAzine 500 MG (AZULFIDINE) TAB PO SCH ×3 (09:55→19:54)
[2019-10-04] MEDS ORDERED: predniSONE 20 MG TAB PO ONE (10:45)
--- NOTE | 2019-10-04 10:47 | Progress Note - Hospitalist ---
Subjective HPI/CC On Admission Date Seen by Provider: Oct 04, 2019 Time Seen by Provider: 10:40 Pt is a 79yoCM with a PMH of a-fib, CAD s/p CABG, HTN, COPD who presented to the ER due to chest heaviness. On arrival to outside ER he was found to have a heart rate in the 180s and they believed it to be SVT. They tried 3 doses of adenosine without improvement and reportedly his BP started to drop so they elected to cardiovert him. He responded well to that and his rate improved. He reports feeling well now and has no complaints. Subjective/Events-last exam Pt was unable to DC yesterday due to fever. COVID swab done and negative. Still doesn't feel well and doesn't feel up to discharging today. Focused Exam Lactate Level 10/03/19 16:28: Lactic Acid Level 1.82 Objective Exam Vital Signs Vital Signs Date Time Temp Pulse Resp B/P (MAP) Pulse Ox O2 Delivery O2 Flow Rate FiO2 10/04/19 09:37 5.00 10/04/19 09:23 96 Nasal Cannula 10/04/19 07:30 37.3 85 22 122/74 (90) 10/03/19 06:49 28 Capillary Refill : Less Than 3 Seconds General Appearance: No Apparent Distress, Chronically ill Respiratory: Lungs Clear, No Respiratory Distress Cardiovascular: Regular Rate, Rhythm, No Murmur Neurologic/Psychiatric: Alert, Oriented x3 Results/Procedures Lab Laboratory Tests 10/03/19 16:28 10/04/19 04:00 Patient resulted labs reviewed. Imaging: Reviewed Imaging Report Assessment/Plan Assessment and Plan Assess & Plan/Chief Complaint A-fib with RVR CAD s/p CABG HTN S/p cardioversion at [place] Rate now controlled Went to laboratory analyst and had clean cath Was to DC but developed fever so stayed for COVID tested COPD Chronic Respiratory Failure Continue supplemental oxygen Continue home meds ABG unremarkable Will start steroids as he is a little more SOB Procal negative COVID negative Clinical Quality Measures DVT/VTE Risk/Contraindication: Risk Factor Score Per Nursin RFS Level Per Nursing on Admit: 4+=Very High JINA DRAKE MD Oct 04, 2019 10:47
[2019-10-04] MEDS ORDERED: RT-ALBUTEROL INHALER HFA (VENTOLIN HFA) 18 GM IH PRN (12:00)
[2019-10-04] MEDS: NS IV 1000 ML 1,000 ML IV SCH ×3 (12:01→22:16)
--- NOTE | 2019-10-04 14:02 | Physical Therapy Evaluation ---
PT Evaluation-General Medical Diagnosis Admission Date Oct 02, 2019 at 06:55 Medical Diagnosis: tachicardia Onset Date: Oct 02, 2019 Therapy Diagnosis Therapy Diagnosis: generalized weakness/debility Height/Weight Height (Feet): 5 Height (Inches): 3.00 Weight (Pounds): 204 Weight (Ounces): 0.0 Precautions Precautions/Isolations: Fall Prevention, Standard Precautions Weight Bear Status Right Lower Extremity: Right Weight Bearing/Tolerated Left Lower Extremity: Left Weight Bearing/Tolerated Referral Physician: Miguelangel Reason for Referral: Evaluation/Treatment Medical History Pertinent Medical History: Atrial Fib, Arthritis, CABG, COPD, GERD, HTN, Rheumatoid Arthritis Current History s/p cardioversion at [place]/chronic respiratory failure Reviewed History: Yes Social History Home: Assisted Living Prior Prior Level of Function SCALE: Activities may be completed with or without assistive devices. 2-Dhgmfqoszn-cpjfvdd completes the activity by him/herself with no assistance from a helper. 5-Set-up or Clean-up Assistance-helper sets up or cleans up; patient completes activity. [place] assists only prior to or following the activity. 4-Supervision or Touching Assistance-helper provides verbal cues and/or touching/steadying and/or contact guard assistance as patient completes activity. Assistance may be provided throughout the activity or intermittently. 3-Partial/Moderate Assistance-helper does LESS THAN HALF the effort. [place] lifts, holds or supports trunk or limbs, but provides less than half the effort. 2-Substantial/Maximal Assistance-helper does MORE THAN HALF the effort. [place] lifts or holds trunk or limbs and provides more than half the effort. 2-Dbaczqhps-cqphye does ALL the effort. Patient does none of the effort to complete the activity. Or, the assistance of 2 or more helpers is required for the patient to complete the activity. If activity was not attempted, code reason: 7-Patient Refused. 9-Not Applicable-not attempted and the patient did not perform the activity before the current illness, exacerbation or injury. 10-Not Attempted due to Environmental Limitations-(lack of equipment, weather restraints, etc.). 88-Not Attempted due to Medical Conditions or Safety Concerns. Bed Mobility: 3 Transfers (B,C,W/C): 3 Gait: 3 Stairs: 9 Indoor Mobility (Ambulation): Needed Some Help Prior Devices Use: Walker PT Evaluation-Current Subjective Patient reluctantly agrees to PT. Patient is very lethargic. Objective Patient Orientation: Person, Time, Situation Attachments: Oxygen, IV ROM/Strength ROM Lower Extremities bilateral LE WFL Strength Lower Extremities 3/5 grossly bilateral LE Integumentary/Posture Integumentary refer to nursing notes Bowel Incontinence: Yes Bladder Incontinence: Yes Posture severely kyphotic Neuromuscular (Tone, Coordination, Reflexes) diminished with all Sensory Vision: Functional Hearing: Functional Transfers Roll Left to Right (QC): 2 Sit to Lying (QC): 2 Lying to Sitting/Side of Bed(Q: 2 Sit to Stand (QC): 2 Chair/[id number]-vc-Xczqr Xfer(QC): 2 Gait Does the Patient Walk?: Yes Mode of Locomotion: Both Anticipated Mode of Locomotion: Both Walk 10 feet (QC): 2 Distance: 30' Gait Assistive Device: FWW Comments/Gait Description extended UE's with FWW use and severely flexed trunk posture Balance Sitting Static: Poor Sitting Dynamic: Poor Standing Static: Poor Standing Dynamic: Poor Assessment/Needs 79 y.o. male, will benefit from skilled PT to address functional strength and mobility to improve current LOF. From a PT standpoint, patient will require extended care facility due to inability to care for self and severely debilitated. Rehab Potential: Guarded PT Furnace Filler Goals Furnace Filler Goals PT Halfway Goals Time Frame: Oct 26, 2019 Roll Left & Right (QC): 4 Sit to Lying (QC): 4 Lying-Sitting on Side/Bed(QC): 4 Sit to Stand (QC): 4 Chair/Rnf-vg-Mgaem Xfer(QC): 4 Toilet Transfer (QC): 4 Does the Patient Walk: Yes Walk 10 feet (QC): 4 Walk 50ft with 2 Turns (QC): 4 PT Plan Problem List Problem List: Activity Tolerance, Functional Strength, Safety, Balance, Gait, Transfer, Bed Mobility Treatment/Plan Treatment Plan: Continue Plan of Care Treatment Plan: Bed Mobility, Education, Functional Activity Raheem, Functional Strength, Gait, Safety, Therapeutic Exercise, Transfers Treatment Duration: Oct 26, 2019 Frequency: 6 times per week Estimated Hrs Per Day: .25 hour per day Discharge Recommendations Therapy Discharge Recommendati: Other, See Comments (shelter facility) Time/GCodes Time In: 1250 Time Out: 1311 Total Billed Treatment Time: 21 Total Billed Treatment 1 visit EVModC 21 min MAL,PENG PT Oct 04, 2019 14:02
--- NOTE | 2019-10-04 14:11 | Occupational Therapy Eval ---
OT Evaluation-General/PLF Medical Diagnosis Admission Date Oct 02, 2019 at 06:55 Medical Diagnosis: tachicardia Onset Date: Oct 02, 2019 Therapy Diagnosis Therapy Diagnosis: Decreased ADL status Height/Weight Height (Feet): 5 Height (Inches): 3.00 Weight (Pounds): 204 Weight (Ounces): 0.0 Precautions Precautions/Isolations: Fall Prevention, Standard Precautions Referral Physician: Miguelangel Referral Reason: Activity Tolerance, Self Care, Evaluation/Treatment, Strengthening/ROM Medical History Pertinent Medical History: Atrial Fib, Arthritis, CABG, COPD, GERD, HTN, Rheumatoid Arthritis Reviewed History: Yes Social History Home: Assisted Living Current Living Status: Entry Into Home: Level Entry ADL-Prior Level of Function SCALE: Activities may be completed with or without assistive devices. 7-Ogykosrygr-xmnuvhu completes the activity by him/herself with no assistance from a helper. 5-Set-up or Clean-up Assistance-helper sets up or cleans up; patient completes activity. [place] assists only prior to or following the activity. 4-Supervision or Touching Assistance-helper provides verbal cues and/or touching/steadying and/or contact guard assistance as patient completes activity. Assistance may be provided throughout the activity or intermittently. 3-Partial/Moderate Assistance-helper does LESS THAN HALF the effort. [place] lifts, holds or supports trunk or limbs, but provides less than half the effort. 2-Substantial/Maximal Assistance-helper does MORE THAN HALF the effort. [place] lifts or holds trunk or limbs and provides more than half the effort. 6-Tyipwwbjf-colfjo does ALL the effort. Patient does none of the effort to complete the activity. Or, the assistance of 2 or more helpers is required for the patient to complete the activity. If activity was not attempted, code reason: 7-Patient Refused. 9-Not Applicable-not attempted and the patient did not perform the activity before the current illness, exacerbation or injury. 10-Not Attempted due to Environmental Limitations-(lack of equipment, weather restraints, etc.). 88-Not Attempted due to Medical Conditions or Safety Concerns. ADL PLOF Comments Pt states IND with all ADL tasks (though receives assist with IADL tasks from CLARICE). Pt states has AE (hip kit) for LB dressing though did not utilize prior to admission. Self Care: Independent Functional Cognition: Independent DME/Equipment Comments [employer] Occupation: retired Drive Self: No OT Current Status Subjective Pt seen in recliner, denies pain. Pt states very tired. Pt agreeable to OT eval/ treat. Pt appears with eyes slightly open, though oriented and has conversation through session. Mental Status/Objective Patient Orientation: Normal For Age Attachments: IV, Oxygen Current Hand Dominance: Right Upper Extremity ROM WFL BUE Upper Extremity Coordination WFL BUE Upper Extremity Sensation DNT Upper Extremity Strength WFL (3+/5) ADL-Treatment Eating (QC): 3 (mod A- pt appears with food in front of him. Pt unable to eat chicken without dentation. Pt given chicken noodle soup within light cup. Pt able to hold cup with L and bring spoon to mouth with R. Pt becomes fatigued quickly, requires skilled positioning of RUE on propped pillows to decrease proximal stability/ strength needed for feeding task. Pt unable to drink with heavy cup, placed drink in light-weight handled cup with straw. Drinks with IND with modified cup. ) Oral Hygiene (QC): 3 (per clinical judgment) Lower Body Dressing (QC): 1 (Pt stands with max A at walker level. soiled breifs doffed and then redonned with TD as pt maintains balance/ stance with hands on walker. Unable to take hands from walker for functional use at this time. ) On/Off Footwear (QC): 1 (Pt unable to doff/ don, TD.) Toileting Hygiene (QC): 1 (TD with clean up in stance) Other Treatments Pt seen in chair. pt appears fatigued. Pt unable to doff/ don sock in seat. States very tired. Pt eating, unable to eat; pt educated on adaptive positioning for RUE and light weight cups/ bowls for feeding. Pt completes feeding task with modified equipment with success. Pt's nurse hr administrative assistant educate on need for feeding and benefit of propping for self feeding. Pt urinates in briefs, requires change with TD. Pt able to sit to stand 2x (max A, mod A) during process. Pt states fatigue and no more feeding. Returns to sit, all needs met, LE's brought up / elevated. Call light on table in front of pt. Education OT Patient Education: Correct positioning, Energy conservation, Modified ADL techniques, Purpose of tx/functional activities, Safety issues Teaching Recipient: Patient Teaching Methods: Demonstration, Discussion Response to Teaching: Verbalize Understanding, Return Demonstration, Reinforcement Needed OT Pharmacy Service Associate Goals Pharmacy Service Associate Goals Time Frame: Oct 11, 2019 Eating (QC): 5 Oral Hygiene (QC): 6 Toileting Hygiene (QC): 3 Shower/Bathe Self (QC): 3 Upper Body Dressing (QC): 5 Lower Body Dressing (QC): 3 On/Off Footwear (QC): 6 1=Demonstrate adherence to instructed precautions during ADL tasks. 2=Patient will verbalize/demonstrate understanding of assistive devices/modifications for ADL. 3=Patient will improve strength/tolerance for activity to enable patient to perform ADL's. OT Education/Plan Problem List/Assessment Assessment: Decreased Activ Tolerance, Decreased UE Strength, Dependent Transfers, Impaired Funct Balance, Impaired I ADL's, Impaired Self-Care Skills Discharge Recommendations Plan/Recommendations: Continue POC Therapy Discharge Recommendati: 24 Hour Supervision, Post Acute OT Treatment Plan/Plan of Care Treatment,Training & Education: Yes Patient would benefit from OT for education, treatment and training to promote independence in ADL's, mobility, safety and/or upper extremity function for ADL's. Plan of Care: ADL Retraining, Functional Mobility, UE Funct Exercise/Act, W/C Management Training Treatment Duration: Oct 11, 2019 Frequency: 5 times per week Estimated Hrs Per Day: .25 hour per day Agreement: Yes Rehab Potential: Guarded Time/GCodes Start Time: 13:30 Stop Time: 14:00 Total Time Billed (hr/min): 30 Billed Treatment Time 1, EVM, ADL (30) THADDEUS FOX OTR Oct 04, 2019 14:11
--- NOTE | 2019-10-04 14:24 | Cardiology Progress Note ---
Cardiology SOAP Progress Note Subjective: Not feeling very good. However denies any cardiac complaints. Objective: I&O/Vital Signs 10/04/19 10/04/19 10/04/19 10/04/19 04:00 07:30 08:00 09:23 Temp 37.0 37.3 Pulse 72 85 Resp 20 22 B/P (MAP) 133/72 (92) 122/74 (90) Pulse Ox 96 94 96 O2 Delivery Nasal Cannula Nasal Cannula Nasal Cannula Nasal Cannula O2 Flow Rate 4.00 4.50 5.00 5.00 10/04/19 10/04/19 10/04/19 10/04/19 09:37 10:32 10:40 12:56 Temp 37.3 37.8 Pulse 81 65 Resp 22 B/P (MAP) 128/78 (95) Pulse Ox 97 97 97 O2 Delivery Nasal Cannula Nasal Cannula O2 Flow Rate 5.00 5.00 3.00 FiO2 40 10/04/19 14:02 Pulse Ox 91 O2 Delivery Nasal Cannula O2 Flow Rate 3.00 10/04/19 00:00 Intake Total 700 ml Output Total 200 ml Balance 500 ml Weight (Pounds): 204 Weight (Ounces): 0.0 Weight (Calculated Kilograms): [id number] Constitutional: appears stated age, AAO x 3; No apparent distress; well- developed, well-nourished Respiratory: chest is bilaterally symmetric, lungs clear to auscultation Cardiovascular: regular rate-rhythm, S1 and S2; No diastolic murmur, No systolic murmur Gastrointestional: soft, audible bowel sounds; No spleenomegaly Extremities: normal range of motion, non-tender, normal inspection; No clubbing, No cyanosis; no lower extremity edema bilateral; No significant edema Neurologic/Psychiatric: no motor/sensory deficits, alert, normal mood/affect, oriented x 3, power is 5/5 both on sides Skin: normal color, warm/dry; No rash, No ulcerations Results/Procedures: Labs Laboratory Tests 10/03/19 15:51: Urine Color YELLOW, Urine Clarity SL CLOUDY, Urine pH 5.0, Urine Specific [place] 1.010L, Urine Protein NEGATIVE, Urine Glucose (UA) NEGATIVE, Urine Ketones NEGATIVE, Urine Nitrite NEGATIVE, Urine Bilirubin NEGATIVE, Urine Urobilinogen 0.2, Urine Leukocyte Esterase NEGATIVE, Urine RBC (Auto) NEGATIVE, Urine RBC 0-2, Urine WBC 2-5, Urine Crystals PRESENTH, Urine Amorphous Sediment FEW MOHAN URATESH, Urine Bacteria TRACE, Urine Casts NONE, Urine Mucus SMALLH, Urine Culture Indicated NO 10/03/19 16:25: Coronavirus (COVID-19)(PCR) Negative 10/03/19 16:28: White Blood Count 10.6, Red Blood Count 3.88L, Hemoglobin 12.2L, Hematocrit 38L, Mean Corpuscular Volume 99, Mean Corpuscular Hemoglobin 31, Mean Corpuscular Hemoglobin Concent 32, Red Cell Distribution Width 14.5, Platelet Count 165, Mean Platelet Volume 9.6, Neutrophils (%) (Auto) 77H, Lymphocytes (%) (Auto) 11L , Monocytes (%) (Auto) 11, Eosinophils (%) (Auto) 0, Basophils (%) (Auto) 0, Neutrophils # (Auto) 8.2H, Lymphocytes # (Auto) 1.2, Monocytes # (Auto) 1.2H, Eosinophils # (Auto) 0.0, Basophils # (Auto) 0.0, Lactic Acid Level 1.82 10/04/19 04:00: White Blood Count 10.3, Red Blood Count 3.59L, Hemoglobin 11.0L, Hematocrit 36L, Mean Corpuscular Volume 99, Mean Corpuscular Hemoglobin 31, Mean Corpuscular Hemoglobin Concent 31L, Red Cell Distribution Width 14.5, Platelet Count 144, Mean Platelet Volume 10.4, Neutrophils (%) (Auto) 73, Lymphocytes (%) (Auto) 11L , Monocytes (%) (Auto) 15H, Eosinophils (%) (Auto) 1, Basophils (%) (Auto) 0, Neutrophils # (Auto) 7.6, Lymphocytes # (Auto) 1.2, Monocytes # (Auto) 1.5H, Eosinophils # (Auto) 0.1, Basophils # (Auto) 0.0, Sodium Level 137, Potassium Level 3.7, Chloride Level 102, Carbon Dioxide Level 25, Anion Gap 10, Blood Urea Nitrogen 13, Creatinine 0.83, Estimat Glomerular Filtration Rate > 60, BUN/Creatinine Ratio 16, Glucose Level 143H, Calcium Level 8.4L, Phosphorus Level 2.4, Magnesium Level 2.6H, Procalcitonin 0.07 10/04/19 09:32: Blood Gas Puncture Site RR, Blood Gas Patient Temperature 38.0, Arterial Blood pH 7.46H, Arterial Blood Partial Pressure CO2 38, Arterial Blood Partial Pressure O2 150H, Arterial Blood HCO3 26, Arterial Blood Total CO2 27.5, Arterial Blood Oxygen Saturation 98, Arterial Blood Base Excess 2.9H, Saturnino Test YES-POS, Blood Gas Ventilator Setting NO, Blood Gas Inspired Oxygen 5L A/P: Assessment/Dx: Chest pain, positive cardiac enzymes, CAD/CABG, Previous history of valve replacement, Paroxysmal atrial fibrillation, Cardiomyopathy Plan: Chest pain, positive cardiac enzymes. Previous history of CAD/CABG. Coronary angiography is recommended. Informed consent was taken. Coronary angiography performed on 10/03/2019 which showed patent saphenous vein graft to the distal RCA. Patent LAD and left circumflex artery. No gradient across the aortic valve. Narrow complex tachycardia with hemodynamic compromise requiring emergent cardioversion. Currently in sinus rhythm. S/P CABG x 1 vessel with vein graft to the [employer] and the RCA, Trifecta #23 tissue aortic valve replacement, Mitral valve repair with a 26 mm [place] ring, and Maze procedure on August 10, [address] Zafar at [facility] Sternal non-healing post cardiac surtery. CT of 12/19/16: There are no signs of healing in the sternotomy with displacement up to 2.5 cm anteriorly of the left side of the sternum compared to the right side. There is suggestion of asymmetry and smaller size of the sternotomy on the left side which could be in part related to bone resorption. Correlate with operative findings. No fluid c ollection at the site to suggest an abscess. This is being managed being managed by Dr. Zafar, his CV surgeon Card cath of 03/01/16: moderately severe mitral regurg, mod aortic stenosis (valve area 1.1 sq cm), 70% prox stenosis of RCA, LVEF 50%, elevated LVEDP, pulmonary hypertension with mean PA pressure 42 mmHg and pulmonary vascular resistance 4 Wood units History of Chronic a fib with an average vent response of 92 bpm on Holter of 02/17/16 - EKG of shows a-fib with a controlled ventricular response Previously on chronic warfarin anticoag, which was being followed by CAROLYN Pike - [facility] following surgery listed above (d/t a-fib being resolved per pt at the time of CABG); currently on oral anticoagulation. MPI at [place], [place]: LVEF 45%, small amount of inferoapical ischemia Echo Mar 2015 at [facility]: mild LVH, biatrial enlargement, LVEF 45-50%, mod (mean gradient 18, valve area 0.8 sq cm), mild to mod AI, mod MR, PASP could not be calculated Echo 02/18/16 at [place], [place]: moderately severe to severe MR, severe aortic stenosis with valve area approx 0.9 sq cm, PASP 50-55 mmHg, LVEF appox 50%, mild LVH H/o COPD Obesity with BMI approx 37 Quit tobacco use in 1971 Leg tiredness/claudication Mild carotid arterial disease per u/s of March 18, 2016 CKD stage 2 MANN with segmental pressures of March 2016 is consistent with bilateral distal peripheral arterial disease No evidence of AAA per u/s of 03-18-16 Thank you for your consultation. Please call me if you have any questions. Jovana Barahona MD, FACP, FACC, FSCAI, FHRS, CCDS Interventional Cardiology Cardiac Electrophysiology Vascular Medicine and Endovascular Interventions Focused Exam Lactate Level 10/03/19 16:28: Lactic Acid Level 1.82 Emy BARAHONA MD Oct 04, 2019 14:24
[2019-10-04] MEDS: TAMSULOSIN 0.4 MG (FLOMAX) CAP PO SCH (17:01)
[2019-10-04] MEDS: traZODone 50 MG (DESYREL) TAB PO SCH (19:54)
[2019-10-05] MEDS: RT-ALBUTEROL INHALER HFA (VENTOLIN HFA) 18 GM IH SCH ×6 (03:04→23:42)
[2019-10-05 03:25] VITALS: BP 124/79
[2019-10-05 05:55] LABS: BASOPHILS % (AUTO) 0 % (0-10); EOSINOPHILS # (AUTO) 0.1 10^3/uL (0.0-0.3); EOSINOPHILS % (AUTO) 1 % (0-10); HEMATOCRIT 34 % (40-54); HEMOGLOBIN 10.7 G/DL (13.3-17.7); LYMPHOCYTES # (AUTO) 1.3 X 10^3 (1.0-4.0); LYMPHOCYTES % (AUTO) 17 % (12-44); MEAN CORPUSCULAR HEMOGLOBIN 31 PG (25-34); MEAN CORPUSCULAR HGB CONC 32 G/DL (32-36); MEAN CORPUSCULAR VOLUME 98 FL (80-99); MEAN PLATELET VOLUME 10.2 FL (7.4-10.4); MONOCYTES % (AUTO) 13 % (0-12); NEUTROPHILS # (AUTO) 5.2 X 10^3 (1.8-7.8); NEUTROPHILS % (AUTO) 69 % (42-75); PLATELET COUNT 116 10^3/uL (130-400); RED CELL DISTRIBUTION WIDTH 13.7 % (10.0-14.5); WHITE BLOOD COUNT 7.6 10^3/uL (4.3-11.0)
[2019-10-05 06:14] LABS: CHLORIDE 105 MMOL/L (98-107); POTASSIUM 4.1 MMOL/L (3.6-5.0); SODIUM 138 MMOL/L (135-145)
[2019-10-05 06:15] LABS: CALCIUM 8.1 MG/DL (8.5-10.1)
[2019-10-05 06:16] LABS: GLUCOSE 116 MG/DL (70-105)
[2019-10-05 06:17] LABS: CARBON DIOXIDE 24 MMOL/L (21-32)
[2019-10-05 06:19] LABS: PHOSPHORUS 1.8 MG/DL (2.3-4.7)
[2019-10-05 06:20] LABS: GFR ESTIMATED > 60
[2019-10-05 06:21] LABS: BUN/CREATININE RATIO 18
[2019-10-05 06:22] LABS: MAGNESIUM 2.4 MG/DL (1.6-2.4)
[2019-10-05] MEDS: POTASSIUM CL 10MEQ/50ML IVPB 50 ML IV SCH (06:23)
[2019-10-05] MEDS: MAGNESIUM 1 GM/100 ML IVPB 100 ML IV SCH (06:24)
[2019-10-05] MEDS: KCL 20 MEQ TAB (K-DUR) PO SCH (06:24)
[2019-10-05] MEDS: predniSONE 20 MG TAB PO SCH (06:28)
[2019-10-05] MEDS: ADVAIR HFA 115/21 MCG INHALER 8 GM IH SCH ×2 (06:50→21:01)
[2019-10-05 08:00] VITALS: BP 109/66
[2019-10-05] MEDS: NS IV 1000 ML 1,000 ML IV SCH ×2 (08:32→17:45)
[2019-10-05] MEDS: sulfaSALAzine 500 MG (AZULFIDINE) TAB PO SCH ×3 (08:33→17:53)
[2019-10-05] MEDS: DIGOXIN 0.25 MG (LANOXIN) TAB PO SCH (08:33)
[2019-10-05] MEDS: APIXABAN 5 MG (ELIQUIS) TABLET PO SCH ×2 (08:33→21:59)
--- NOTE | 2019-10-05 08:35 | Physical Therapy Daily Note ---
PT Daily Note-Current Subjective Patient more alert and able to participate with therapy. Agrees to PT. Mental Status Patient Orientation: Normal For Age Attachments: Oxygen, IV Transfers SCALE: Activities may be completed with or without assistive devices. 8-Gsualxxhth-jalysir completes the activity by him/herself with no assistance from a helper. 5-Set-up or Clean-up Assistance-helper sets up or cleans up; patient completes activity. [place] assists only prior to or following the activity. 4-Supervision or Touching Assistance-helper provides verbal cues and/or touching/steadying and/or contact guard assistance as patient completes activity. Assistance may be provided throughout the activity or intermittently. 3-Partial/Moderate Assistance-helper does LESS THAN HALF the effort. [place] lifts, holds or supports trunk or limbs, but provides less than half the effort. 2-Substantial/Maximal Assistance-helper does MORE THAN HALF the effort. [place] lifts or holds trunk or limbs and provides more than half the effort. 2-Rdkfycpqw-oiioja does ALL the effort. Patient does none of the effort to complete the activity. Or, the assistance of 2 or more helpers is required for the patient to complete the activity. If activity was not attempted, code reason: 7-Patient Refused. 9-Not Applicable-not attempted and the patient did not perform the activity before the current illness, exacerbation or injury. 10-Not Attempted due to Environmental Limitations-(lack of equipment, weather restraints, etc.). 88-Not Attempted due to Medical Conditions or Safety Concerns. Roll Left & Right (QC): 6 Sit to Lying (QC): 6 Lying to Sitting/Side of Bed(Q: 6 Sit to Stand (QC): 6 Chair/Elc-fu-Aixun Xfer(QC): 6 Toilet Transfer (QC): 6 Weight Bearing Right Lower Extremity: Right Weight Bearing/Tolerated Left Lower Extremity: Left Weight Bearing/Tolerated Gait Training Does the Patient Walk?: Yes Distance: 225' Walk 10 feet (QC): 6 Walk 50 ft with 2 Turns(QC): 6 Walk 150 ft (QC): 6 Gait Assistive Device: FWW safe and functional with no deviation Assessment Patient much improved with gross motor skills and tolerated treatment well. Physician informed. PT Pump Servicer Goals Pump Servicer Goals PT Fdc Goals Time Frame: Oct 26, 2019 Roll Left & Right (QC): 4 Sit to Lying (QC): 4 Lying-Sitting on Side/Bed(QC): 4 Sit to Stand (QC): 4 Chair/Juh-vo-Xdpve Xfer(QC): 4 Toilet Transfer (QC): 4 Does the Patient Walk: Yes Walk 10 feet (QC): 4 Walk 50ft with 2 Turns (QC): 4 PT Plan Treatment/Plan Treatment Plan: Continue Plan of Care Treatment Plan: Bed Mobility, Education, Functional Activity Raheem, Functional Strength, Gait, Safety, Therapeutic Exercise, Transfers Treatment Duration: Oct 26, 2019 Frequency: 6 times per week Estimated Hrs Per Day: .25 hour per day Time/GCodes Time In: 755 Time Out: 808 Total Billed Treatment Time: 13 Total Billed Treatment 1 visit FA 13 min PENG RESENDEZ PT Oct 05, 2019 08:35
--- NOTE | 2019-10-05 08:57 | Progress Note - Hospitalist ---
Subjective HPI/CC On Admission Date Seen by Provider: Oct 05, 2019 Time Seen by Provider: 08:54 Pt is a 79yoCM with a PMH of a-fib, CAD s/p CABG, HTN, COPD who presented to the ER due to chest heaviness. On arrival to outside ER he was found to have a heart rate in the 180s and they believed it to be SVT. They tried 3 doses of adenosine without improvement and reportedly his BP started to drop so they elected to cardiovert him. He responded well to that and his rate improved. He reports feeling well now and has no complaints. Subjective/Events-last exam Pt reports doing much better today. Worked with PT already. Focused Exam Lactate Level 10/03/19 16:28: Lactic Acid Level 1.82 Objective Exam Vital Signs Vital Signs Date Time Temp Pulse Resp B/P (MAP) Pulse Ox O2 Delivery O2 Flow Rate FiO2 10/05/19 08:00 36.4 67 20 109/66 (80) 97 Nasal Cannula 2.00 10/04/19 10:32 40 Capillary Refill : Less Than 3 Seconds General Appearance: No Apparent Distress, Chronically ill, Obese Respiratory: Lungs Clear, No Respiratory Distress Cardiovascular: No Murmur, Irregularly Irregular Gastrointestinal: Normal Bowel Sounds, Soft Neurologic/Psychiatric: Alert, Oriented x3 Results/Procedures Lab Laboratory Tests 10/05/19 05:17 Patient resulted labs reviewed. Imaging: Reviewed Imaging Report Assessment/Plan Assessment and Plan Assess & Plan/Chief Complaint A-fib with RVR- resolved CAD s/p CABG HTN NSTEMI S/p cardioversion at [place] Rate now controlled Went to optical lab technician and had clean cath troponin elevation likely due to tachycardia and cardioversion COPD Chronic Respiratory Failure Continue supplemental oxygen Continue home meds Continue steroids at stress dose level as he is on chronic daily steroids Procal negative COVID negative Debility PT/OT Improving Dispo: Plan to DC [facility] when facility able to accept him back. Diagnosis/Problems Diagnosis/Problems (1) COPD (chronic obstructive pulmonary disease) Qualifiers: COPD type: chronic bronchitis Chronic bronchitis type: unspecified Qualified Codes: J42 - Unspecified chronic bronchitis (2) Atrial fibrillation with RVR (3) CHF (congestive heart failure) Status: Acute Qualifiers: Heart failure type: systolic Heart failure chronicity: chronic Qualified Codes: I50.22 - Chronic systolic (congestive) heart failure (4) CAD (coronary artery disease) Status: Acute Qualifiers: Coronary Disease-Associated Artery/Lesion type: bypass graft [place] vs. transplanted heart: [place] heart Associated angina: without angina Qualified Codes: I25.810 - Atherosclerosis of coronary artery bypass graft(s) without angina pectoris (5) CKD (chronic kidney disease), stage III Status: Acute Clinical Quality Measures DVT/VTE Risk/Contraindication: Risk Factor Score Per Nursin RFS Level Per Nursing on Admit: 4+=Very High JINA DRAKE MD Oct 05, 2019 08:57
[2019-10-05 12:04] VITALS: BP 144/81
--- NOTE | 2019-10-05 14:33 | Cardiology Progress Note ---
Cardiology SOAP Progress Note Subjective: No cardiac complaints. Objective: I&O/Vital Signs 10/05/19 10/05/19 10/05/19 10/05/19 03:05 03:25 06:51 06:51 Temp 36.7 Pulse 77 Resp 26 B/P (MAP) 124/79 (94) Pulse Ox 96 96 94 O2 Delivery Nasal Cannula Nasal Cannula Nasal Cannula O2 Flow Rate 2.00 2.00 2.00 2.00 10/05/19 10/05/19 10/05/19 08:00 12:04 14:23 Temp 36.4 37.1 Pulse 67 70 Resp 20 20 B/P (MAP) 109/66 (80) 144/81 (102) Pulse Ox 97 94 93 O2 Delivery Nasal Cannula Nasal Cannula O2 Flow Rate 2.00 2.00 2.00 10/05/19 00:00 Intake Total 800 ml Output Total 100 ml Balance 700 ml Weight (Pounds): 204 Weight (Ounces): 0.0 Weight (Calculated Kilograms): 92.333941 Constitutional: appears stated age, AAO x 3; No apparent distress; well- developed, well-nourished Respiratory: chest is bilaterally symmetric, lungs clear to auscultation Cardiovascular: regular rate-rhythm, S1 and S2; No diastolic murmur, No systolic murmur Gastrointestional: soft, audible bowel sounds; No spleenomegaly Extremities: normal range of motion, non-tender, normal inspection; No clubbing, No cyanosis; no lower extremity edema bilateral; No significant edema Neurologic/Psychiatric: no motor/sensory deficits, alert, normal mood/affect, oriented x 3, power is 5/5 both on sides Skin: normal color, warm/dry; No rash, No ulcerations Results/Procedures: Labs Laboratory Tests 10/05/19 05:17: White Blood Count 7.6, Red Blood Count 3.42L, Hemoglobin 10.7L, Hematocrit 34L, Mean Corpuscular Volume 98, Mean Corpuscular Hemoglobin 31, Mean Corpuscular Hemoglobin Concent 32, Red Cell Distribution Width 13.7, Platelet Count 116L, Mean Platelet Volume 10.2, Neutrophils (%) (Auto) 69, Lymphocytes (%) (Auto) 17, Monocytes (%) (Auto) 13H, Eosinophils (%) (Auto) 1, Basophils (%) (Auto) 0, Neutrophils # (Auto) 5.2, Lymphocytes # (Auto) 1.3, Monocytes # (Auto) 1.0, Eosinophils # (Auto) 0.1, Basophils # (Auto) 0.0, Sodium Level 138, Potassium Level 4.1, Chloride Level 105, Carbon Dioxide Level 24, Anion Gap 9, Blood Urea Nitrogen 14, Creatinine 0.80, Estimat Glomerular Filtration Rate > 60, BUN/Creatinine Ratio 18, Glucose Level 116H, Calcium Level 8.1L, Phosphorus Level 1.8L, Magnesium Level 2.4 Microbiology 10/03/19 Blood Culture - Preliminary, Resulted No growth A/P: Assessment/Dx: Chest pain, positive cardiac enzymes, CAD/CABG, Previous history of valve replacement, Paroxysmal atrial fibrillation, Cardiomyopathy Plan: Chest pain, positive cardiac enzymes. Previous history of CAD/CABG. Coronary angiography is recommended. Informed consent was taken. Coronary angiography performed on 10/03/2019 which showed patent saphenous vein graft to the distal RCA. Patent LAD and left circumflex artery. No gradient across the aortic valve. Narrow complex tachycardia with hemodynamic compromise requiring emergent cardioversion. History of chronic atrial fibrillation. Cardiomyopathy with an EF of 35-40 percent. 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 Zafar at [facility] Sternal non-healing post cardiac surtery. CT of 12/19/16: There are no signs of healing in the sternotomy with displacement up to 2.5 cm anteriorly of the left side of the sternum compared to the right side. There is suggestion of asymmetry and smaller size of the sternotomy on the left side which could be in part rel ated to bone resorption. Correlate with operative findings. No fluid collection at the site to suggest an abscess. This is being managed being managed by Dr. Zafar, his CV surgeon Card cath of 03/01/16: moderately severe mitral regurg, mod aortic stenosis (valve area 1.1 sq cm), 70% prox stenosis of RCA, LVEF 50%, elevated LVEDP, pulmonary hypertension with mean PA pressure 42 mmHg and pulmonary vascular resistance 4 Wood units History of Chronic a fib with an average vent response of 92 bpm on Holter of 02/17/16 - EKG of shows a-fib with a controlled ventricular response Previously on chronic warfarin anticoag, which was being followed by CAROLYN Pike - stopped following surgery listed above (d/t a-fib being resolved per pt at the time of CABG); currently on oral anticoagulation. MPI at [place], [place]: LVEF 45%, small amount of inferoapical ischemia Echo Mar 2015 at [facility]: mild LVH, biatrial enlargement, LVEF 45-50%, mod (mean gradient 18, valve area 0.8 sq cm), mild to mod AI, mod MR, PASP could not be calculated Echo 02/18/16 at [place], [place]: moderately severe to severe MR, severe aortic stenosis with valve area approx 0.9 sq cm, PASP 50-55 mmHg, LVEF appox 50%, mild LVH H/o COPD Obesity with BMI approx 37 Quit tobacco use in 1971 Leg tiredness/claudication Mild carotid arterial disease per u/s of March 18, 2016 CKD stage 2 MANN with segmental pressures of March 2016 is consistent with bilateral distal peripheral arterial disease No evidence of AAA per u/s of 03-18-16 Thank you for your consultation. Please call me if you have any questions. Jovana Barahona MD, FACP, FACC, FSCAI, FHRS, CCDS Interventional Cardiology Cardiac Electrophysiology Vascular Medicine and Endovascular Interventions Focused Exam Lactate Level 10/03/19 16:28: Lactic Acid Level 1.82 Emy BARAHONA MD Oct 05, 2019 14:33
[2019-10-05 15:46] VITALS: BP 113/67
[2019-10-05] MEDS: TAMSULOSIN 0.4 MG (FLOMAX) CAP PO SCH (17:45)
[2019-10-05 19:37] VITALS: BP 132/83
[2019-10-05] MEDS: MELATONIN 3 MG TABLET PO PRN (21:59)
[2019-10-05] MEDS: traZODone 50 MG (DESYREL) TAB PO SCH (21:59)
[2019-10-06 00:25] VITALS: BP 130/82
[2019-10-06] MEDS: RT-ALBUTEROL INHALER HFA (VENTOLIN HFA) 18 GM IH SCH ×6 (03:39→22:22)
[2019-10-06 04:00] VITALS: BP 127/73
[2019-10-06] MEDS: NS IV 1000 ML 1,000 ML IV SCH ×3 (04:00→23:57)
[2019-10-06 05:02] LABS: BASOPHILS % (AUTO) 0 % (0-10); EOSINOPHILS # (AUTO) 0.1 10^3/uL (0.0-0.3); EOSINOPHILS % (AUTO) 2 % (0-10); HEMATOCRIT 35 % (40-54); HEMOGLOBIN 11.2 G/DL (13.3-17.7); LYMPHOCYTES # (AUTO) 1.5 X 10^3 (1.0-4.0); LYMPHOCYTES % (AUTO) 17 % (12-44); MEAN CORPUSCULAR HEMOGLOBIN 31 PG (25-34); MEAN CORPUSCULAR HGB CONC 32 G/DL (32-36); MEAN CORPUSCULAR VOLUME 98 FL (80-99); MEAN PLATELET VOLUME 10.4 FL (7.4-10.4); MONOCYTES # (AUTO) 0.9 X 10^3 (0.0-1.0); MONOCYTES % (AUTO) 10 % (0-12); NEUTROPHILS # (AUTO) 6.5 X 10^3 (1.8-7.8); NEUTROPHILS % (AUTO) 72 % (42-75); PLATELET COUNT 177 10^3/uL (130-400); RED CELL DISTRIBUTION WIDTH 14.3 % (10.0-14.5); WHITE BLOOD COUNT 9.1 10^3/uL (4.3-11.0)
[2019-10-06 05:12] LABS: CHLORIDE 106 MMOL/L (98-107); POTASSIUM 3.8 MMOL/L (3.6-5.0); SODIUM 136 MMOL/L (135-145)
[2019-10-06 05:13] LABS: CALCIUM 8.2 MG/DL (8.5-10.1)
[2019-10-06 05:14] LABS: GLUCOSE 124 MG/DL (70-105)
[2019-10-06 05:15] LABS: CARBON DIOXIDE 19 MMOL/L (21-32)
[2019-10-06 05:17] LABS: CREATININE SERUM 0.72 MG/DL (0.60-1.30); GFR ESTIMATED > 60; PHOSPHORUS 1.7 MG/DL (2.3-4.7)
[2019-10-06 05:18] LABS: BUN/CREATININE RATIO 18
[2019-10-06 05:20] LABS: MAGNESIUM 2.5 MG/DL (1.6-2.4)
[2019-10-06] MEDS: POTASSIUM CL 10MEQ/50ML IVPB 50 ML IV SCH (06:02)
[2019-10-06] MEDS: KCL 20 MEQ TAB (K-DUR) PO SCH (06:03)
[2019-10-06] MEDS: MAGNESIUM 1 GM/100 ML IVPB 100 ML IV SCH (06:04)
[2019-10-06] MEDS: predniSONE 20 MG TAB PO SCH (06:38)
[2019-10-06] MEDS: ADVAIR HFA 115/21 MCG INHALER 8 GM IH SCH ×2 (06:54→18:09)
[2019-10-06 08:00] VITALS: BP 139/74
[2019-10-06] MEDS: APIXABAN 5 MG (ELIQUIS) TABLET PO SCH ×2 (09:50→20:00)
[2019-10-06] MEDS: sulfaSALAzine 500 MG (AZULFIDINE) TAB PO SCH ×3 (09:50→18:11)
[2019-10-06] MEDS: DIGOXIN 0.25 MG (LANOXIN) TAB PO SCH (09:51)
--- NOTE | 2019-10-06 11:03 | Progress Note - Hospitalist ---
Subjective HPI/CC On Admission Date Seen by Provider: Oct 06, 2019 Time Seen by Provider: 11:02 Pt is a 79yoCM with a PMH of a-fib, CAD s/p CABG, HTN, COPD who presented to the ER due to chest heaviness. On arrival to outside ER he was found to have a heart rate in the 180s and they believed it to be SVT. They tried 3 doses of adenosine without improvement and reportedly his BP started to drop so they elected to cardiovert him. He responded well to that and his rate improved. He reports feeling well now and has no complaints. Subjective/Events-last exam Pt reports doing well today. Still requesting discharge. Explained again that [facility] is not able to accept him back over the weekend. Focused Exam Lactate Level 10/03/19 16:28: Lactic Acid Level 1.82 Objective Exam Vital Signs Vital Signs Date Time Temp Pulse Resp B/P (MAP) Pulse Ox O2 Delivery O2 Flow Rate FiO2 10/06/19 10:37 94 Nasal Cannula 2.00 10/06/19 08:00 36.2 59 20 139/74 (95) 10/05/19 21:05 28 Capillary Refill : Less Than 3 SecondsLess Than 3 Seconds General Appearance: No Apparent Distress, Chronically ill, Obese Respiratory: Lungs Clear, No Respiratory Distress Cardiovascular: Regular Rate, Rhythm, No Murmur Neurologic/Psychiatric: Alert, Oriented x3 Results/Procedures Lab Laboratory Tests 10/06/19 04:45 Patient resulted labs reviewed. 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 when facility able to accept him back. Diagnosis/Problems Diagnosis/Problems (1) COPD (chronic obstructive pulmonary disease) Qualifiers: COPD type: chronic bronchitis Chronic bronchitis type: unspecified Qualified Codes: J42 - Unspecified chronic bronchitis (2) Atrial fibrillation with RVR (3) CHF (congestive heart failure) Status: Acute Qualifiers: Heart failure type: systolic Heart failure chronicity: chronic Qualified Codes: I50.22 - Chronic systolic (congestive) heart failure (4) CAD (coronary artery disease) Status: Acute Qualifiers: Coronary Disease-Associated Artery/Lesion type: bypass graft [place] vs. transplanted heart: [place] heart Associated angina: without angina Qualified Codes: I25.810 - Atherosclerosis of coronary artery bypass graft(s) without angina pectoris (5) CKD (chronic kidney disease), stage III Status: Acute Clinical Quality Measures DVT/VTE Risk/Contraindication: Risk Factor Score Per Nursin RFS Level Per Nursing on Admit: 4+=Very High JINA DRAKE MD Oct 06, 2019 11:03
[2019-10-06 12:00] VITALS: BP 154/71
--- NOTE | 2019-10-06 14:16 | Cardiology Progress Note ---
Cardiology SOAP Progress Note Subjective: No cardiac complaints. Objective: I&O/Vital Signs 10/06/19 10/06/19 10/06/19 10/06/19 03:39 04:00 08:00 08:00 Temp 36.3 36.2 Pulse 81 59 Resp 20 20 B/P (MAP) 127/73 (91) 139/74 (95) Pulse Ox 95 98 93 97 O2 Delivery Nasal Cannula Nasal Cannula Nasal Cannula Nasal Cannula O2 Flow Rate 2.00 2.00 3.00 2.00 10/06/19 10/06/19 10:37 12:00 Temp 36.6 Pulse 76 Resp 20 B/P (MAP) 154/71 (98) Pulse Ox 94 94 O2 Delivery Nasal Cannula Nasal Cannula O2 Flow Rate 2.00 2.00 10/06/19 00:00 Intake Total 3070 ml Output Total 1350 ml Balance 1720 ml Weight (Pounds): 204 Weight (Ounces): 0.0 Weight (Calculated Kilograms): 92.949851 Constitutional: appears stated age, AAO x 3; No apparent distress; well- developed, well-nourished Respiratory: chest is bilaterally symmetric, lungs clear to auscultation Cardiovascular: regular rate-rhythm, S1 and S2; No diastolic murmur, No systolic murmur Gastrointestional: soft, audible bowel sounds; No spleenomegaly Extremities: normal range of motion, non-tender, normal inspection; No clubbing, No cyanosis; no lower extremity edema bilateral; No significant edema Neurologic/Psychiatric: no motor/sensory deficits, alert, normal mood/affect, oriented x 3, power is 5/5 both on sides Skin: normal color, warm/dry; No rash, No ulcerations Results/Procedures: Labs Laboratory Tests 10/06/19 04:45: White Blood Count 9.1, Red Blood Count 3.59L, Hemoglobin 11.2L, Hematocrit 35L, Mean Corpuscular Volume 98, Mean Corpuscular Hemoglobin 31, Mean Corpuscular Hemoglobin Concent 32, Red Cell Distribution Width 14.3, Platelet Count 177, Mean Platelet Volume 10.4, Neutrophils (%) (Auto) 72, Lymphocytes (%) (Auto) 17, Monocytes (%) (Auto) 10, Eosinophils (%) (Auto) 2, Basophils (%) (Auto) 0, Neutrophils # (Auto) 6.5, Lymphocytes # (Auto) 1.5, Monocytes # (Auto) 0.9, Eosinophils # (Auto) 0.1, Basophils # (Auto) 0.0, Sodium Level 136, Potassium Level 3.8, Chloride Level 106, Carbon Dioxide Level 19L, Anion Gap 11, Blood Urea Nitrogen 13, Creatinine 0.72, Estimat Glomerular Filtration Rate > 60, BUN/Creatinine Ratio 18, Glucose Level 124H, Calcium Level 8.2L, Phosphorus Level 1.7L, Magnesium Level 2.5H Microbiology 10/03/19 Blood Culture - Preliminary, Resulted No growth A/P: Assessment/Dx: Chest pain, positive cardiac enzymes, CAD/CABG, Previous history of valve replacement, Paroxysmal atrial fibrillation, Cardiomyopathy Plan: Chest pain, positive cardiac enzymes. Previous history of CAD/CABG. Coronary angiography is recommended. Informed consent was taken. Coronary angiography performed on 10/03/2019 which showed patent saphenous vein graft to the distal RCA. Patent LAD and left circumflex artery. No gradient across the aortic valve. Narrow complex tachycardia with hemodynamic compromise requiring emergent cardio version. History of chronic atrial fibrillation. Cardiomyopathy with an EF of 35-40 percent. 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 Zafar at [facility] Sternal non-healing post cardiac surtery. CT of 12/19/16: There are no signs of healing in the sternotomy with displacement up to 2.5 cm anteriorly of the left side of the sternum compared to the right side. There is suggestion of asymmetry and smaller size of the sternotomy on the left side which could be in part rel ated to bone resorption. Correlate with operative findings. No fluid collection at the site to suggest an abscess. This is being managed being managed by Dr. Zafar, his CV surgeon Card cath of 03/01/16: moderately severe mitral regurg, mod aortic stenosis (valve area 1.1 sq cm), 70% prox stenosis of RCA, LVEF 50%, elevated LVEDP, pulmonary hypertension with mean PA pressure 42 mmHg and pulmonary vascular resistance 4 Wood units History of Chronic a fib with an average vent response of 92 bpm on Holter of 02/17/16 - EKG of 10-1817 shows a-fib with a controlled ventricular response Previously on chronic warfarin anticoag, which was being followed by CAROLYN Pike - stopped following surgery listed above (d/t a-fib being resolved per pt at the time of CABG); currently on oral anticoagulation. MPI at [place], [place]: LVEF 45%, small amount of inferoapical ischemia Echo Mar 2015 at [facility]: mild LVH, biatrial enlargement, LVEF 45-50%, mod (mean gradient 18, valve area 0.8 sq cm), mild to mod AI, mod MR, PASP could not be calculated Echo 02/18/16 at [place], [place]: moderately severe to severe MR, severe aortic stenosis with valve area approx 0.9 sq cm, PASP 50-55 mmHg, LVEF appox 50%, mild LVH H/o COPD Obesity with BMI approx 37 Quit tobacco use in 1971 Leg tiredness/claudication Mild carotid arterial disease per u/s of March 18, 2016 CKD stage 2 MANN with segmental pressures of March 2016 is consistent with bilateral distal peripheral arterial disease No evidence of AAA per u/s of 03-18-16 Thank you for your consultation. Please call me if you have any questions. Jovana Barahona MD, FACP, FACC, FSCAI, FHRS, CCDS Interventional Cardiology Cardiac Electrophysiology Vascular Medicine and Endovascular Interventions Focused Exam Lactate Level 10/03/19 16:28: Lactic Acid Level 1.82 Emy BARAHONA MD Oct 06, 2019 14:16
[2019-10-06 15:35] VITALS: BP 146/86
[2019-10-06] MEDS: TAMSULOSIN 0.4 MG (FLOMAX) CAP PO SCH (18:10)
[2019-10-06 19:49] VITALS: BP 154/74
[2019-10-06] MEDS: traZODone 50 MG (DESYREL) TAB PO SCH (20:00)
[2019-10-06] MEDS: MELATONIN 3 MG TABLET PO PRN (20:00)
[2019-10-07] VITALS: BP 138/75
[2019-10-07] MEDS: RT-ALBUTEROL INHALER HFA (VENTOLIN HFA) 18 GM IH SCH ×3 (02:58→10:45)
[2019-10-07 04:00] VITALS: BP 133/67
[2019-10-07 05:41] LABS: BASOPHILS % (AUTO) 0 % (0-10); EOSINOPHILS # (AUTO) 0.2 10^3/uL (0.0-0.3); EOSINOPHILS % (AUTO) 2 % (0-10); HEMATOCRIT 36 % (40-54); HEMOGLOBIN 11.3 G/DL (13.3-17.7); LYMPHOCYTES # (AUTO) 1.5 X 10^3 (1.0-4.0); LYMPHOCYTES % (AUTO) 18 % (12-44); MEAN CORPUSCULAR HEMOGLOBIN 31 PG (25-34); MEAN CORPUSCULAR HGB CONC 32 G/DL (32-36); MEAN CORPUSCULAR VOLUME 99 FL (80-99); MONOCYTES # (AUTO) 0.9 X 10^3 (0.0-1.0); MONOCYTES % (AUTO) 11 % (0-12); NEUTROPHILS # (AUTO) 5.7 X 10^3 (1.8-7.8); NEUTROPHILS % (AUTO) 69 % (42-75); PLATELET COUNT 166 10^3/uL (130-400); RED CELL DISTRIBUTION WIDTH 14.3 % (10.0-14.5); WHITE BLOOD COUNT 8.2 10^3/uL (4.3-11.0)
[2019-10-07 05:51] LABS: CHLORIDE 107 MMOL/L (98-107); POTASSIUM 4.2 MMOL/L (3.6-5.0); SODIUM 139 MMOL/L (135-145)
[2019-10-07 05:52] LABS: CALCIUM 8.4 MG/DL (8.5-10.1); GLUCOSE 117 MG/DL (70-105)
[2019-10-07 05:54] LABS: CARBON DIOXIDE 22 MMOL/L (21-32)
[2019-10-07 05:56] LABS: CREATININE SERUM 0.79 MG/DL (0.60-1.30); GFR ESTIMATED > 60; PHOSPHORUS 2.1 MG/DL (2.3-4.7)
[2019-10-07 05:57] LABS: BUN/CREATININE RATIO 15
[2019-10-07 05:59] LABS: MAGNESIUM 2.4 MG/DL (1.6-2.4)
[2019-10-07] MEDS: KCL 20 MEQ TAB (K-DUR) PO SCH (05:59)
[2019-10-07] MEDS: POTASSIUM CL 10MEQ/50ML IVPB 50 ML IV SCH (05:59)
[2019-10-07] MEDS: MAGNESIUM 1 GM/100 ML IVPB 100 ML IV SCH (06:00)
[2019-10-07] MEDS: predniSONE 20 MG TAB PO SCH (06:27)
[2019-10-07] MEDS: ADVAIR HFA 115/21 MCG INHALER 8 GM IH SCH (07:01)
--- NOTE | 2019-10-07 07:31 | Pulmonary Progress Note ---
Subjective Time Seen by a Provider: 07:26 Subjective/Events-last exam Pt is doing much better. Sepsis Event Evaluation Height, Weight, BMI Height: 5'3.00" Weight: 204lbs. 0.0oz. 92.904107gc; 37.50 BMI Method:Stated Exam Exam Vital Signs Date Time Temp Pulse Resp B/P (MAP) Pulse Ox O2 Delivery O2 Flow Rate FiO2 10/07/19 07:00 96 Nasal Cannula 2.00 10/07/19 04:00 36.4 71 21 133/67 (89) 96 Nasal Cannula 2.00 10/07/19 02:58 98 Nasal Cannula 2.00 10/07/19 00:00 36.5 73 20 138/75 (96) 96 Nasal Cannula 2.00 10/06/19 22:23 98 Nasal Cannula 2.00 10/06/19 20:00 Nasal Cannula 3.00 10/06/19 19:49 36.6 68 20 154/74 (100) 99 Nasal Cannula 2.00 10/06/19 18:12 98 Nasal Cannula 10/06/19 18:10 98 Nasal Cannula 2.00 10/06/19 15:35 36.6 68 20 146/86 (106) 97 Nasal Cannula 2.00 10/06/19 14:46 94 Nasal Cannula 2.00 10/06/19 12:00 36.6 76 20 154/71 (98) 94 Nasal Cannula 2.00 10/06/19 10:37 94 Nasal Cannula 2.00 10/06/19 08:00 36.2 59 20 139/74 (95) 97 Nasal Cannula 2.00 10/06/19 08:00 93 Nasal Cannula 3.00 I & O 10/07/19 07:00 Intake Total 4970 ml Output Total 2175 ml Balance 2795 ml Height & Weight Height: 5'3.00" Weight: 204lbs. 0.0oz. 92.335977zp; 37.50 BMI Method:Stated General Appearance: No Apparent Distress, Chronically ill, Obese HEENT: PERRL/EOMI, Moist Mucous Membranes Neck: Other (obscured by abdul) Respiratory: Lungs Clear, No Respiratory Distress Cardiovascular: Regular Rate, Rhythm, No Murmur Capillary Refill: Less Than 3 Seconds Extremity: Normal Capillary Refill, No Calf Tenderness, No Pedal Edema Neurologic/Psychiatric: Alert, Oriented x3 Skin: Normal Color, Warm/Dry Results Lab Laboratory Tests 10/06/19 04:45 10/07/19 05:05 Assessment/Plan Assessment/Plan Chronic respiratory failure -Oxygen -Monitor -Check BNP -SL IVF -D/C Prednisone COPD -Breathing treatments, Advair -Monitor Afib RVR s/p cardioversion at [facility] -Cardiology is following CAD s/p CABG -Plan is for heart cath today HTN A-fib CAD s/p CABG NORIS JAEN DO Oct 07, 2019 07:31
[2019-10-07 07:36] VITALS: BP 136/81
[2019-10-07] MEDS: DIGOXIN 0.25 MG (LANOXIN) TAB PO SCH (09:26)
[2019-10-07] MEDS: APIXABAN 5 MG (ELIQUIS) TABLET PO SCH (09:26)
[2019-10-07] MEDS ORDERED: meTOprolol TARTRATE 25 MG (LOPRESSOR) TABLET PO NR (09:30)
[2019-10-07] MEDS: sulfaSALAzine 500 MG (AZULFIDINE) TAB PO SCH ×3 (09:38→14:18)
--- NOTE | 2019-10-07 09:45 | Physical Therapy Daily Note ---
PT Daily Note-Current Subjective Patient agrees to PT. Mental Status Patient Orientation: Normal For Age Attachments: Oxygen (2L NC), IV Transfers SCALE: Activities may be completed with or without assistive devices. 0-Zybgoypnro-pbispnk completes the activity by him/herself with no assistance from a helper. 5-Set-up or Clean-up Assistance-helper sets up or cleans up; patient completes activity. [place] assists only prior to or following the activity. 4-Supervision or Touching Assistance-helper provides verbal cues and/or touching/steadying and/or contact guard assistance as patient completes activity. Assistance may be provided throughout the activity or intermittently. 3-Partial/Moderate Assistance-helper does LESS THAN HALF the effort. [place] lifts, holds or supports trunk or limbs, but provides less than half the effort. 2-Substantial/Maximal Assistance-helper does MORE THAN HALF the effort. [place] lifts or holds trunk or limbs and provides more than half the effort. 7-Remgdlplc-wlscsv does ALL the effort. Patient does none of the effort to complete the activity. Or, the assistance of 2 or more helpers is required for the patient to complete the activity. If activity was not attempted, code reason: 7-Patient Refused. 9-Not Applicable-not attempted and the patient did not perform the activity before the current illness, exacerbation or injury. 10-Not Attempted due to Environmental Limitations-(lack of equipment, weather restraints, etc.). 88-Not Attempted due to Medical Conditions or Safety Concerns. Chair/Ioy-ty-Hegex Xfer(QC): 6 Weight Bearing Right Lower Extremity: Right Weight Bearing/Tolerated Left Lower Extremity: Left Weight Bearing/Tolerated Gait Training Does the Patient Walk?: Yes Distance: 150' Walk 10 feet (QC): 5 Walk 50 ft with 2 Turns(QC): 5 Walk 150 ft (QC): 5 Gait Assistive Device: FWW safe and functional with increase SOA on 2L. Assessment PT requested physician to reassess patient due to increase SOA with inability to recover. Physician in to address needs. PT Engineer Assistant Goals Penitentiary Goals PT Penitentiary Goals Time Frame: Oct 26, 2019 Roll Left & Right (QC): 4 Sit to Lying (QC): 4 Lying-Sitting on Side/Bed(QC): 4 Sit to Stand (QC): 4 Chair/Fbe-ka-Jguad Xfer(QC): 4 Toilet Transfer (QC): 4 Does the Patient Walk: Yes Walk 10 feet (QC): 4 Walk 50ft with 2 Turns (QC): 4 PT Plan Treatment/Plan Treatment Plan: Continue Plan of Care Treatment Plan: Bed Mobility, Education, Functional Activity Raheem, Functional Strength, Gait, Safety, Therapeutic Exercise, Transfers Treatment Duration: Oct 26, 2019 Frequency: 6 times per week Estimated Hrs Per Day: .25 hour per day Time/GCodes Time In: 906 Time Out: 918 Total Billed Treatment Time: 12 Total Billed Treatment 1 visit FA 12 min PENG RESENDEZ PT Oct 07, 2019 09:45
--- NOTE | 2019-10-07 10:02 | NUR ---
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 They are able to talk with the JESUSITA Mcallister and it is likely they can pick him up this afternoon. This worker attempted on last week to see if pt could be returned over the weekend, and [facility] indicated that they could not take the pt back and requested pt remain here over the weekend. Pt had requested to return over the weekend. This worker will follow up.
[2019-10-07] MEDS ORDERED: METO-333 PO (10:24)
--- NOTE | 2019-10-07 11:01 | Occupational Ther Daily Note ---
OT Current Status-Daily Note Subjective Pt seen in recliner chair. Pt denies pain, states feelings of SOB. Pt O2 at 93% at start of session. Pt agrees to OT tx session. Mental Status/Objective Patient Orientation: Person, Place, Time, Situation Attachments: Oxygen ADL-Treatment Therapy Code Descriptions/Definitions Functional [place] Measure: 0=Not Assessed/NA 4=Minimal Assistance 1=Total Assistance 5=Supervision or Setup 2=Maximal Assistance 6=Modified [place] 3=Moderate Assistance 7=Complete IndependenceSCALE: Activities may be completed with or without assistive devices. 5-Ntxpkvggye-olxahct completes the activity by him/herself with no assistance from a helper. 5-Set-up or Clean-up Assistance-helper sets up or cleans up; patient completes activity. [place] assists only prior to or following the activity. 4-Supervision or Touching Assistance-helper provides verbal cues and/or touching/steadying and/or contact guard assistance as patient completes activity. Assistance may be provided throughout the activity or intermittently. 3-Partial/Moderate Assistance-helper does LESS THAN HALF the effort. [place] lifts, holds or supports trunk or limbs, but provides less than half the effort. 2-Substantial/Maximal Assistance-helper does MORE THAN HALF the effort. [place] lifts or holds trunk or limbs and provides more than half the effort. 1-Fczllsixu-nloxcf does ALL the effort. Patient does none of the effort to complete the activity. Or, the assistance of 2 or more helpers is required for the patient to complete the activity. If activity was not attempted, code reason: 7-Patient Refused. 9-Not Applicable-not attempted and the patient did not perform the activity before the current illness, exacerbation or injury. 10-Not Attempted due to Environmental Limitations-(lack of equipment, weather restraints, etc.). 88-Not Attempted due to Medical Conditions or Safety Concerns. Bathing Location: L Arm, R Arm, L Upper Leg, R Upper Leg, Chest, Abdomen, Buttocks, Perineal Area Shower/Bathe Self (QC): 3 (min A for B feet. CGA in stance for bottom/ susan hygiene. ) Upper Body Dressing (QC): 5 (s/u) Lower Body Dressing (QC): 3 (min A for threading B feet. Pt able to bring up over hips. ) On/Off Footwear: 3 (mod A: pt able to doff, requires assist donning.) Toileting Hygiene (QC): 4 (CGA in stance for bottom/ susan hygiene. New breif donned) Other Treatment Pt alert/ oriented. Pt able to complete ADLs with higher IND on this date. Pt states he feels much better than Monday. Pt completes sponge bath in chair/ up 1x in stance for bottom/ susan hygiene and LB dressing. Pt's 02 assessed start of session: 93%, post-footwear: 93%, and post-stance: 92%. Pt states fatigue. Pt left in chair with call light in reach, all needs met. Pt denies needs. Education OT Patient Education: Correct positioning, Energy conservation, Modified ADL techniques, Progress toward Goal/Update tx plan, Purpose of tx/functional activities, Safety issues, Transfer techniques Teaching Recipient: Patient Teaching Methods: Demonstration Response to Teaching: Verbalize Understanding, Return Demonstration, Adin nforcement Needed OT Prison Goals Prison Goals Time Frame: Oct 11, 2019 Eating (QC): 5 Oral Hygiene (QC): 6 Toileting Hygiene (QC): 3 Shower/Bathe Self (QC): 3 Upper Body Dressing (QC): 5 Lower Body Dressing (QC): 3 On/Off Footwear (QC): 6 1=Demonstrate adherence to instructed precautions during ADL tasks. 2=Patient will verbalize/demonstrate understanding of assistive devices/modifications for ADL. 3=Patient will improve strength/tolerance for activity to enable patient to perform ADL's. OT Education/Plan Problem List/Assessment Assessment: Decreased Activ Tolerance, Decreased UE Strength, Dependent Transfers, Impaired Funct Balance, Impaired I ADL's, Impaired Self-Care Skills Discharge Recommendations Plan/Recommendations: Continue POC Therapy Discharge Recommendati: 24 Hour Supervision, Scheduled Assistance, Bath Aide, Post Acute OT Treatment Plan/Plan of Care Treatment,Training & Education: Yes Patient would benefit from OT for education, treatment and training to promote independence in ADL's, mobility, safety and/or upper extremity function for ADL's. Plan of Care: ADL Retraining, Functional Mobility, UE Funct Exercise/Act, W/C Management Training Treatment Duration: Oct 11, 2019 Frequency: 5 times per week Estimated Hrs Per Day: .25 hour per day Agreement: Yes Rehab Potential: Guarded Time/GCodes Start Time: 10:30 Stop Time: 11:00 Total Time Billed (hr/min): 30 Billed Treatment Time 1, ADL 2 (30) THADDEUS FOX OTR Oct 07, 2019 11:01
--- NOTE | 2019-10-07 13:56 | NUR ---
THIS RN SPOKE WITH NURSE BEATRIZ WHO TOOK REPORT ON THIS PATIENT PRIOR TO HIS RETURN TO [facility]. NOTIFIED THEM OF 2 WEEK FOLLOW UP ( WITH DR. BACH) AND 1 WEEK FOLLOW UP WITH DR. LAW ( PCP). MEDICATIONS DISCUSSED WITH NURSE WHO WILL ASSUME CARE OF THIS PATIENT ON HIS ARRIVAL BACK TO [facility] LATER THIS AFTERNOON.
--- NOTE | 2019-10-07 14:35 | Cardiology Progress Note ---
Cardiology SOAP Progress Note Subjective: No cardiac complaints. Denies chest pain or shortness of breath. Objective: I&O/Vital Signs 10/07/19 10/07/19 10/07/19 10/07/19 02:58 04:00 07:00 07:36 Temp 36.4 36.7 Pulse 71 84 Resp 21 20 B/P (MAP) 133/67 (89) 136/81 (99) Pulse Ox 98 96 96 99 O2 Delivery Nasal Cannula Nasal Cannula Nasal Cannula Nasal Cannula O2 Flow Rate 2.00 2.00 2.00 2.00 10/07/19 10/07/19 08:00 10:45 Pulse Ox 91 91 O2 Delivery Nasal Cannula Nasal Cannula O2 Flow Rate 2.00 2.00 10/07/19 00:00 Intake Total 4670 ml Output Total 1775 ml Balance 2895 ml Weight (Pounds): 204 Weight (Ounces): 0.0 Weight (Calculated Kilograms): 92.051960 Constitutional: appears stated age, AAO x 3; No apparent distress; well- developed, well-nourished Respiratory: chest is bilaterally symmetric, lungs clear to auscultation Cardiovascular: regular rate-rhythm, S1 and S2; No diastolic murmur, No systolic murmur Gastrointestional: soft, audible bowel sounds; No spleenomegaly Extremities: normal range of motion, non-tender, normal inspection; No clubbing, No cyanosis; no lower extremity edema bilateral; No significant edema Neurologic/Psychiatric: no motor/sensory deficits, alert, normal mood/affect, oriented x 3, power is 5/5 both on sides Skin: normal color, warm/dry; No rash, No ulcerations Results/Procedures: Labs Laboratory Tests 10/07/19 05:05: White Blood Count 8.2, Red Blood Count 3.60L, Hemoglobin 11.3L, Hematocrit 36L, Mean Corpuscular Volume 99, Mean Corpuscular Hemoglobin 31, Mean Corpuscular Hemoglobin Concent 32, Red Cell Distribution Width 14.3, Platelet Count 166, Mean Platelet Volume 10.0, Neutrophils (%) (Auto) 69, Lymphocytes (%) (Auto) 18, Monocytes (%) (Auto) 11, Eosinophils (%) (Auto) 2, Basophils (%) (Auto) 0, Neutrophils # (Auto) 5.7, Lymphocytes # (Auto) 1.5, Monocytes # (Auto) 0.9, Eosinophils # (Auto) 0.2, Basophils # (Auto) 0.0, Sodium Level 139, Potassium Level 4.2, Chloride Level 107, Carbon Dioxide Level 22, Anion Gap 10, Blood Urea Nitrogen 12, Creatinine 0.79, Estimat Glomerular Filtration Rate > 60, BUN/Creatinine Ratio 15, Glucose Level 117H, Calcium Level 8.4L, Phosphorus Level 2.1L, Magnesium Level 2.4, B-Type Natriuretic Peptide 310.1H Microbiology 10/03/19 Blood Culture - Preliminary, Resulted No growth A/P: Assessment/Dx: Chest pain, positive cardiac enzymes, CAD/CABG, Previous history of valve replacement, Paroxysmal atrial fibrillation, Cardiomyopathy Plan: Chest pain, positive cardiac enzymes. Previous history of CAD/CABG. Coronary angiography is recommended. Informed consent was taken. Coronary angiography performed on 10/03/2019 which showed patent saphenous vein graft to the distal RCA. Patent LAD and left circumflex artery. No gradient across the aortic valve. Narrow complex tachycardia with hemodynamic compromise requiring emergent cardioversion. History of chronic atrial fibrillation. Cardiomyopathy with an EF of 35-40 percent. S/P CABG x 1 vessel with vein graft to the [employer] and the RCA, Trifecta #23 tissue aortic valve replacement, Mitral valve repair with a 26 mm [place] ring, and Maze procedure on August 10, [address] Zafar at [facility] Sternal non-healing post cardiac surtery. CT of 12/19/16: There are no signs of healing in the sternotomy with displacement up to 2.5 cm anteriorly of the left side of the sternum compared to the right side. There is suggestion of asymmetry and smaller size of the sternotomy on the left side which could be in part related to bone resorption. Correlate with operative findings. No fluid collection at the site to suggest an abscess. This is being managed being managed by Dr. Zafar, his CV surgeon Card cath of 03/01/16: moderately severe mitral regurg, mod aortic stenosis (valve area 1.1 sq cm), 70% prox stenosis of RCA, LVEF 50%, elevated LVEDP, pulmonary hypertension with mean PA pressure 42 mmHg and pulmonary vascular resistance 4 Wood units History of Chronic a fib with an average vent response of 92 bpm on Holter of 02/17/16 - EKG of shows a-fib with a controlled ventricular response Previously on chronic warfarin anticoag, which was being followed by CAROLYN Pike - stopped following surgery listed above (d/t a-fib being resolved per pt at the time of CABG); currently on oral anticoagulation. MPI at [place], [place]: LVEF 45%, small amount of inferoapical ischemia Echo Mar 2015 at [facility]: mild LVH, biatrial enlargement, LVEF 45-50%, mod (mean gradient 18, valve area 0.8 sq cm), mild to mod AI, mod MR, PASP could not be calculated Echo 02/18/16 at [place], [place]: moderately severe to severe MR, severe aortic stenosis with valve area approx 0.9 sq cm, PASP 50-55 mmHg, LVEF appox 50%, mild LVH H/o COPD Obesity with BMI approx 37 Quit tobacco use in 1971 Leg tiredness/claudication Mild carotid arterial disease per u/s of March 18, 2016 CKD stage 2 MANN with segmental pressures of March 2016 is consistent with bilateral distal peripheral arterial disease No evidence of AAA per u/s of 03-18-16 Dr. Espinosa to take over cardiology service tomorrow. Thank you for your consultation. Please call me if you have any questions. Jovana Barahona MD, FACP, FACC, FSCAI, FHRS, CCDS Interventional Cardiology Cardiac Electrophysiology Vascular Medicine and Endovascular Interventions Emy BARAHONA MD Oct 07, 2019 14:35
--- NOTE | 2019-10-07 14:52 | NUR ---
oxygen tank belonging to [facility] sent with patient on d/c from [facility] as the patient transportation didn't bring his at discharge. Fredo, HS notified of this and approved the tank to leave this facility
--- NOTE | 2019-10-07 20:25 | Discharge Summary ---
Discharge Summary Hospital Course Was the Problem List Reviewed?: Yes Problems/Dx: (1) COPD (chronic obstructive pulmonary disease) Qualifiers: Qualified Codes: J42 - Unspecified chronic bronchitis (2) Atrial fibrillation with RVR (3) CHF (congestive heart failure) Status: Acute Qualifiers: Qualified Codes: I50.22 - Chronic systolic (congestive) heart failure (4) CAD (coronary artery disease) Status: Acute Qualifiers: Qualified Codes: I25.810 - Atherosclerosis of coronary artery bypass graft(s) without angina pectoris (5) CKD (chronic kidney disease), stage III Status: Acute Hospital Course Date of Admission: Oct 04, 2019 at 16:14 Admission Diagnosis : Family Physician/Provider: Wayne Barba DO Date of Discharge: 10/07/19 Discharge Diagnosis: [ ] Hospital Course: [ ] Labs and Pending Lab Test: Laboratory Tests 10/07/19 05:05: White Blood Count 8.2, Red Blood Count 3.60L, Hemoglobin 11.3L, Hematocrit 36L, Mean Corpuscular Volume 99, Mean Corpuscular Hemoglobin 31, Mean Corpuscular Hemoglobin Concent 32, Red Cell Distribution Width 14.3, Platelet Count 166, Mean Platelet Volume 10.0, Neutrophils (%) (Auto) 69, Lymphocytes (%) (Auto) 18, Monocytes (%) (Auto) 11, Eosinophils (%) (Auto) 2, Basophils (%) (Auto) 0, Neutrophils # (Auto) 5.7, Lymphocytes # (Auto) 1.5, Monocytes # (Auto) 0.9, Eosinophils # (Auto) 0.2, Basophils # (Auto) 0.0, Sodium Level 139, Potassium Level 4.2, Chloride Level 107, Carbon Dioxide Level 22, Anion Gap 10, Blood Urea Nitrogen 12, Creatinine 0.79, Estimat Glomerular Filtration Rate > 60, BUN/Creatinine Ratio 15, Glucose Level 117H, Calcium Level 8.4L, Phosphorus Level 2.1L, Magnesium Level 2.4, B-Type Natriuretic Peptide 310.1H Microbiology 10/03/19 Blood Culture - Preliminary, Resulted No growth Home Meds Active Metoprolol Tartrate 25 Mg Tablet 12.5 Mg PO BID 30 Days Reported Albuterol Sulfate 2.5 Mg/0.5 Ml Vial.neb 2.5 Mg INH Q6H Stool Softener (Docusate Sodium) 100 Mg Capsule 100 Mg PO BID PRN Flomax (Tamsulosin HCl) 0.4 Mg Cap 0.4 Mg PO 1700 W/ SUPPER Furosemide 20 Mg Tablet 20 Mg PO 1400 Ferrous Sulfate 325 Mg Tablet 325 Mg PO 1000 Cyanocobalamin Injection (Cyanocobalamin) 1,000 Mcg/Ml Inj 1,000 Mcg SC MONTLY [Folic Acid 0.1MG] 0.1 Tab 0.1 Mg PO DAILY Trelegy Ellipta 100-62.5-25 (Fluticasone/Umeclidin/Vilanter) 1 Each Blst.w.dev 1 Puff INH DAILY Eliquis (Apixaban) 2.5 Mg Tablet 2.5 Mg PO BID Vitamin D3 (Cholecalciferol (Vitamin D3)) 25 Mcg Capsule 25 Mcg PO DAILY Furosemide 40 Mg Tablet 40 Mg PO DAILY Toviaz (Fesoterodine Fumarate) 4 Mg Tab.sr.24h 4 Mg PO DAILY Guaifenesin 100 Mg/5 Ml Liquid 100 Mg PO DAILY Prednisone 5 Mg Tablet 5 Mg PO DAILY Aldactone (Spironolactone) 25 Mg Tablet 25 Mg PO DAILY Digoxin 250 Mcg Tablet 250 Mcg PO DAILY Fluticasone Propionate 16 Gm [place].susp 1 [place] NSEACH DAILY Trazodone HCl 50 Mg Tablet 75 Mg PO HS TAKES 1 & (50MG) TABS Protonix (Pantoprazole Sodium) 40 Mg Tablet.dr 40 Mg PO BID Acetaminophen ER (Acetaminophen) 650 Mg Tablet.er 650 Mg PO BID PRN Sulfasalazine 500 Mg Tablet 1,500 Mg PO BID TAKES 3 (500MG) TABS TWICE DAILY Loratadine 10 Mg Tablet 10 Mg PO DAILY PRN Fish Oil 1,000 mg Capsule ([place] 3 Polyunsat Fatty Acids) 1,000 Mg Cap 1,000 Mg PO BID Finasteride 5 Mg Tablet 5 Mg PO HS Co Q-10 100 mg Softgel (Ubidecarenone/Vit E Acetate) 1 Each Capsule 100 Mg PO DAILY Atorvastatin Calcium 80 Mg Tablet 80 Mg PO HS Aspirin EC (Aspirin) 81 Mg Tablet.dr 81 Mg PO DAILY Discharge Planning: <30 minutes discharge planning Discharge Instructions Discharge Diet: No Restrictions, Cardiac Diet Activity as Tolerated: Yes Discharge Physical Examination Vital Signs Vital Signs Date Time Temp Pulse Resp B/P (MAP) Pulse Ox O2 Delivery O2 Flow Rate FiO2 10/07/19 10:45 91 Nasal Cannula 2.00 10/07/19 07:36 36.7 84 20 136/81 (99) 10/05/19 21:05 28 Allergies: Coded Allergies: Penicillins (Verified Allergy, Unknown, 03/01/16) cephalexin (Verified Allergy, Unknown, 03/01/16) ciprofloxacin (Verified Allergy, Unknown, 03/01/16) methotrexate (Verified Allergy, Unknown, 03/01/16) Discharge Summary Date of Admission Oct 04, 2019 at 16:14 Date of Discharge Oct 07, 2019 at 14:30 Discharge Date: Oct 03, 2019 Admission Diagnosis A-fib with RVR Discharge Diagnosis (1) COPD (chronic obstructive pulmonary disease) Qualifiers: Qualified Codes: J42 - Unspecified chronic bronchitis (2) Atrial fibrillation with RVR (3) CHF (congestive heart failure) Status: Acute Qualifiers: Qualified Codes: I50.22 - Chronic systolic (congestive) heart failure (4) CAD (coronary artery disease) Status: Acute Qualifiers: Qualified Codes: I25.810 - Atherosclerosis of coronary artery bypass graft(s) without angina pectoris (5) CKD (chronic kidney disease), stage III Status: Acute Clinical Quality Measures DVT/VTE Risk/Contraindication: Risk Factor Score Per Nursin RFS Level Per Nursing on Admit: 4+=Very High CONSTANTINE CROFT MD Oct 07, 2019 20:25
[2019-10-07] MEDS ORDERED: meTOprolol TARTRATE 25 MG (LOPRESSOR) TABLET PO SCH (21:00)
--- NOTE | 2019-10-08 09:18 | Physician Query Clarification ---
PQ-Further Specificity Admission/Discharge Admission Date: Oct 04, 2019 at 16:14 Discharge Date: Oct 07, 2019 at 14:30 The medical record reflects the following clinical scenario: History/Risk Factors: PSVT, PAF, CAD, HTN, CKD-2, CHF Clinical Findings: Troponin 0.530, 10/[address] Means - troponin elevation likely due to tachycardia and cardioversion Treatment: heart cath Question: Can you further specify the WV per the clinical indicators above? Please document a response in the Progress Notes or Discharge Summary. 1. Type II WV 2. NSTEMI 3. No WV, elevated troponin only 4. Other, with explanation of the clinical findings. 5. Clinically undetermined, no explanation for the clinical findings. PHYSICIAN RESPONSE Can you specify per above: 1 Please remember a lack of response to the above will prompt a phone page by CDI/Coding staff. In responding to this query, please exercise your independent professional judgment. The purpose of this communication is to more accurately reflect the complexity of your patients condition. The fact that a question is asked does not imply that any particular answer is desired or expected. Thank you for your timely response to this clarification. Requestors name: [email or web address] THIS PHYSICIAN QUERY FORM IS A PERMANENT PART OF THE MEDICAL RECORD SEAN PACHECO Oct 08, 2019 09:18 Emy TIMMONS MD Oct 08, 2019 10:27
--- NOTE | 2019-10-08 09:28 | Physician Query Clarification ---
PQ-CHF Specificity Admission Date: Oct 04, 2019 at 16:14 Discharge Date: Oct 07, 2019 at 14:30 Dr. Barahona, The medical record reflects the following clinical scenario: History/Risk Factors: CAD, PAF, HTN, CKD-2, chronic respiratory failure, CHF Clinical Findings: BNP - 310.1, EF 40% Treatment: Digoxin .25 mg PO, Lopressor 12.5 mg PO Question: Can you further specify the acuity &/or type of CHF per the clinical indicators above? Please document a response in the Progress Notes or Discharge Summary. 1. Acuity: Acute, Chronic or Acute on Chronic 2. Type: Systolic, Diastolic or Systolic & Diastolic 3. Unspecified: CHF cannot be further specified regarding type or acuity 4. Other, with explanation of clinical findings 5. Clinically undetermined, no explanation for clinical findings PHYSICIAN RESPONSE Acuity: Acute on Chronic Type: Systolic & Diastolic Please remember a lack of response to the above will prompt a phone page by CDI/Coding staff. In responding to this query, please exercise your independent professional judgment. The purpose of this communication is to more accurately reflect the complexity of your patients condition. The fact that a question is asked does not imply that any particular answer is desired or expected. Thank you for your timely response to this clarification. Requestors name: [email or web address] THIS PHYSICIAN QUERY FORM IS A PERMANENT PART OF THE MEDICAL RECORD SEAN PACHECO Oct 08, 2019 09:27 Emy BARAHONA MD Oct 08, 2019 10:28
== END 2019-10-07 14:30 | DRG 280 ==
LOC: INTOOBSV 06:55 → ICU 06:55 → 4TH 10-03 17:45 → OBSVTOIN 10-04 16:14
PROVIDERS: ADMIT Internal Medicine; ATTEND Internal Medicine
PROC: 4A023N7 Measurement of Cardiac Sampling and Pressure, Left Heart, Percutaneous Approach (ICD-10-PCS; principal; 2019-10-03)
PROC: B2111ZZ Fluoroscopy of Multiple Coronary Arteries using Low Osmolar Contrast (ICD-10-PCS; 2019-10-03)
PROC: B2151ZZ Fluoroscopy of Left Heart using Low Osmolar Contrast (ICD-10-PCS; 2019-10-03)
PROC: B2181ZZ Fluoroscopy of Left Internal Mammary Bypass Graft using Low Osmolar Contrast (ICD-10-PCS; 2019-10-03)
PROC: B2121ZZ Fluoroscopy of Single Coronary Artery Bypass Graft using Low Osmolar Contrast (ICD-10-PCS; 2019-10-03)
PROC: B3101ZZ Fluoroscopy of Thoracic Aorta using Low Osmolar Contrast (ICD-10-PCS; 2019-10-03)
DX: I47.1 Supraventricular tachycardia (principal); I21.A1 Myocardial infarction type 2; I50.43 Acute on chronic combined systolic (congestive) and diastolic (congestive) heart failure; I13.0 Hypertensive heart and chronic kidney disease with heart failure and stage 1 through stage 4 chronic kidney disease, or unspecified chronic kidney disease; J96.10 Chronic respiratory failure, unspecified whether with hypoxia or hypercapnia; I42.9 Cardiomyopathy, unspecified; I48.0 Paroxysmal atrial fibrillation; N18.2 Chronic kidney disease, stage 2 (mild); I25.10 Atherosclerotic heart disease of native coronary artery without angina pectoris; J44.9 Chronic obstructive pulmonary disease, unspecified; T81.89XD Other complications of procedures, not elsewhere classified, subsequent encounter; I08.0 Rheumatic disorders of both mitral and aortic valves; E66.9 Obesity, unspecified; Z68.37 Body mass index [BMI] 37.0-37.9, adult; I73.9 Peripheral vascular disease, unspecified; M06.9 Rheumatoid arthritis, unspecified; F32.9 Major depressive disorder, single episode, unspecified; Z95.2 Presence of prosthetic heart valve; K21.9 Gastro-esophageal reflux disease without esophagitis; M19.91 Primary osteoarthritis, unspecified site; Z20.828 Contact with and (suspected) exposure to other viral communicable diseases; Z85.528 Personal history of other malignant neoplasm of kidney; Z95.1 Presence of aortocoronary bypass graft; Z87.891 Personal history of nicotine dependence; Z87.01 Personal history of pneumonia (recurrent); R50.9 Fever, unspecified; Z90.49 Acquired absence of other specified parts of digestive tract; Z90.89 Acquired absence of other organs
CPT/HCPCS: 36221; 36415; 36600; 71045; 80048; 81000; 82805; 83605; 83735; 83880; 84100; 84145; 84484; 85025; 85610; 85730; 87040; 87635; 93005; 93306; 93459; 94640; 94664; 94760; 99211; G0378

== ENCOUNTER → 2019-12-02 | Outpatient (CLI) | payer MEDICARE ==
[~2019-12-02] MED LIST changes: +ALB0.5V INH; +APIX2.5T PO; +ASPI-1238 PO; -ASPI-983 PO; +CHOL100048 PO; +CNC1KV SC; +DOCU-238 PO; +FERR325T18 PO; +FLUT1BLS3 INH; +FOLIC ACID PO; +FURO20TA4 PO; +METO-333 PO; +RT-ALBUTEROL SULF 2.5 MG/3 ML PRE-MIX VIAL INH ONE
[2019-12-02 10:23] LABS: BUN/CREATININE RATIO 14; CREATININE SERUM 0.87 MG/DL (0.60-1.30); GFR ESTIMATED > 60
--- NOTE | 2019-12-02 13:30 | Diagnostic Imaging Report ---
PROCEDURE: CT chest with contrast only. TECHNIQUE: Multiple contiguous axial images were obtained through the chest after administration of intravenous contrast. Auto Exposure Controls were utilized during the CT exam to meet ALARA standards for radiation dose reduction. INDICATION: COPD, shortness of breath, history of tobacco use. COMPARISON: July 13, 2018 and December 19, 2016. FINDINGS: No significant adenopathy within the chest. Scattered vascular calcifications, including within the coronary arteries. Postsurgical changes of a prior median sternotomy and CABG. Prosthetic aortic valve epicardial leads are in place. The heart is enlarged, though stable. No significant retrosternal fluid collection. No pericardial effusion. No significant pleural effusion. No pneumothorax. 1.8 cm groundglass nodular density within the posterior aspect of the right lower lobe adjacent to a chronically fractured rib is again identified and unchanged since 2017. 0.7 cm right lower lobe pulmonary nodule is also again identified and unchanged since 2017, consistent with benign etiology. No new pulmonary nodule or opacity. The trachea is patent. Visualized upper abdomen is unremarkable. Chronic posterior right 6th, 7th, 8th, 9th, 10th, and 11th rib fractures are present. Stable superior endplate deformity within the mid thoracic spine. No acute osseous abnormality. IMPRESSION: Unchanged right lower lobe pulmonary nodules. Given stability since 2017, these are benign. No new pulmonary nodule or opacity. Postsurgical changes and chronic ununited right-sided rib fractures as above. Cardiomegaly. Dictated by: Dictated on workstation # [id number]
== END ==
LOC: RT 09:46
PROVIDERS: ATTEND Internal Medicine Critical Care Medicine
DX: Z01.812 Encounter for preprocedural laboratory examination (principal); J44.9 Chronic obstructive pulmonary disease, unspecified; R91.8 Other nonspecific abnormal finding of lung field; M84.48XA Pathological fracture, other site, initial encounter for fracture; I51.7 Cardiomegaly; Z95.1 Presence of aortocoronary bypass graft; Z98.890 Other specified postprocedural states; Z87.891 Personal history of nicotine dependence
CPT/HCPCS: 36415; 71260; 82565; 84520; 94060; 94726; 94729